=== PATIENT | male | born 1940 | race Caucasian/White ===

== ENCOUNTER → 2017-09-25 02:27 | Outpatient (CLI) | payer MEDICARE, MEDICAID, SELFPAY ==
--- NOTE | 2017-09-25 13:10 | DI.REPORT_ITS ---
SYMPTOM/DIAGNOSIS: PAINFUL LUMP, TENDER SOFT TISSUE EXTREMITY ULTRASOUND: The right mid to distal forearm was evaluated. Distal to the mid forearm medially and posteriorly was examined. There is no mass or cyst identified. The veins were noted in this region and compress freely and exhibit color flow. IMPRESSION: No abnormality is evident.
== END ==
PROVIDERS: PCP Family Medicine; Visit Provider Family Medicine
DX: R22.41 Localized swelling, mass and lump, right lower limb (principal)
CPT/HCPCS: 76881

== ENCOUNTER 2017-10-08 01:28 | Outpatient (RCR) | payer MEDICARE, MEDICAID, SELFPAY ==
[2017-10-08] MEDS: Normal Saline Flush 10 ML SYR IVP (07:00)
[2017-10-08] MEDS: Heparin 500 UNITS/5 ML SYRINGE IV (07:00)
[2017-10-08 07:24] LABS: Abs Immature Grans 0.02 k/cumm (0.0-0.09); Absolute Basophil Count 0.01 k/cumm (0.0-0.2); Absolute Eosinophil Count 0.12 k/cumm (0.0-0.7); Absolute Lymphocyte Count 0.36 k/cumm (1.2-3.4); Absolute Monocyte Count 0.26 k/cumm (0.11-0.7); Absolute Neutrophil Count 1.45 k/cumm (1.2-6.7); Basophils % 0.5; Eosinophils % 5.4; HCT 28.8 % (40.0-50.0); HGB 8.9 g/dL (13.5-17.5); Immature Grans % 0.9; Lymphocytes % 16.2; Mean Corp. HGB Concentration 30.9 g/dL (32.0-36.0); Mean Corpuscular Hemoglobin 25.4 pg (27.0-33.0); Mean Corpuscular Volume 82.1 fL (80-95); Mean Platelet Volume 12.5 fL (8.0-11.0); Monocytes % 11.7; Neutrophils % 65.3; RBC 3.51 m/cumm (4.50-6.00); RBC Distribution Width 16.7 % (11.8-14.1); White Blood Cell Count 2.22 k/cumm (4.4-10.8)
[2017-10-08 07:49] LABS: Anisocytosis 1+; Diff Comment RBC Morph Reviewed; Hypochromasia 2+; Microcytosis 1+; Ovalocytes 2+; Platelet Count 62 x1000/uL (130-400)
[2017-10-08 07:50] LABS: Poikilocytes 2+
== END 2017-10-17 ==
LOC: INF 01:28
PROVIDERS: PCP Family Medicine; Visit Provider Internal Medicine
DX: D50.0 Iron deficiency anemia secondary to blood loss (chronic) (principal); Z45.2 Encounter for adjustment and management of vascular access device
CPT/HCPCS: 36591; 86900; 86901; 85025

== ENCOUNTER 2017-10-16 08:30 | Outpatient (CLI) | payer MEDICARE, MEDICAID, SELFPAY | END 2017-10-16 08:31 | PROVIDERS: PCP Family Medicine; Visit Provider Psychiatry & Neurology Neurology | DX: G20 Parkinson's disease (principal); G25.81 Restless legs syndrome; K11.7 Disturbances of salivary secretion; R51 Headache | CPT/HCPCS: 99213 ==

== ENCOUNTER 2017-11-11 01:38 | Outpatient (RCR) | payer MEDICARE, MEDICAID, SELFPAY ==
[2017-11-05 09:22] LABS: Abs Immature Grans 0.01 k/cumm (0.0-0.09); Absolute Basophil Count 0.01 k/cumm (0.0-0.2); Absolute Eosinophil Count 0.11 k/cumm (0.0-0.7); Absolute Lymphocyte Count 0.26 k/cumm (1.2-3.4); Absolute Monocyte Count 0.18 k/cumm (0.11-0.7); Absolute Neutrophil Count 1.17 k/cumm (1.2-6.7); Basophils % 0.6; Eosinophils % 6.3; HCT 27.2 % (40.0-50.0); HGB 8.4 g/dL (13.5-17.5); Immature Grans % 0.6; Lymphocytes % 14.9; Mean Corp. HGB Concentration 30.9 g/dL (32.0-36.0); Mean Corpuscular Hemoglobin 25.1 pg (27.0-33.0); Mean Corpuscular Volume 81.2 fL (80-95); Mean Platelet Volume 11.1 fL (8.0-11.0); Monocytes % 10.3; Neutrophils % 67.3; RBC 3.35 m/cumm (4.50-6.00); RBC Distribution Width 16.4 % (11.8-14.1)
[2017-11-05 09:45] LABS: Platelet Count 55 x1000/uL (130-400); White Blood Cell Count 1.74 k/cumm (4.4-10.8)
[2017-11-05 09:49] LABS: Anisocytosis 2+; Hypochromasia 2+
[2017-11-05 09:50] LABS: Microcytosis 2+; Ovalocytes 3+; Poikilocytes 1+
[2017-11-11] MEDS: Normal Saline Flush 10 ML SYR IVP (07:00)
[2017-11-11] MEDS: Heparin 500 UNITS/5 ML SYRINGE IV (07:00)
[2017-11-11 07:47] LABS: Absolute Basophil Count 0.02 k/cumm (0.0-0.2); Absolute Eosinophil Count 0.09 k/cumm (0.0-0.7); Absolute Lymphocyte Count 0.27 k/cumm (1.2-3.4); Absolute Monocyte Count 0.19 k/cumm (0.11-0.7); Absolute Neutrophil Count 0.97 k/cumm (1.2-6.7); Basophils % 1.3; Eosinophils % 5.8; HCT 26.7 % (40.0-50.0); HGB 8.2 g/dL (13.5-17.5); Lymphocytes % 17.5; Mean Corp. HGB Concentration 30.7 g/dL (32.0-36.0); Mean Corpuscular Hemoglobin 24.9 pg (27.0-33.0); Mean Corpuscular Volume 81.2 fL (80-95); Monocytes % 12.3; Neutrophils % 63.1; RBC 3.29 m/cumm (4.50-6.00); RBC Distribution Width 16.1 % (11.8-14.1)
[2017-11-11 08:03] LABS: ALT 8 U/L (12-78); AST 31 U/L (15-37); Albumin 2.6 g/dL (3.4-5.0); Alkaline Phosphatase 220 U/L (46-116); Anion Gap 7.7 mmol/L (3-11); BUN 10 mg/dL (7-18); Bilirubin, Total 0.7 mg/dL (0.2-1.0); CO2 25.3 mmol/L (21.0-32.0); CREATININE 0.87 mg/dL (0.70-1.30); Calcium 7.5 mg/dL (8.5-10.1); Chloride 108 mmol/L (98-107); Ferritin 22 ng/mL (8-388); Glucose 141 mg/dL (70-100); Sodium 141 mmol/L (136-145); Total Protein 6.2 g/dL (6.4-8.2)
[2017-11-11 08:32] LABS: Platelet Count 54 x1000/uL (130-400); White Blood Cell Count 1.54 k/cumm (4.4-10.8)
[2017-11-11 08:33] LABS: Anisocytosis 1+; Diff Comment Diff Reviewed; Hypochromasia 2+; Microcytosis 2+; Ovalocytes 2+; Poikilocytes 1+
[2017-11-12 09:56] LABS: IgA 509 mg/dL (85-499); IgG 1557 mg/dL (610-1616); IgM 47 mg/dL (35-242); Kappa Free Light Chain 5.44 mg/dl (0.33-1.94)
== END 2017-11-16 23:59 | disposition home or self-care (01) ==
LOC: INF 01:38
PROVIDERS: PCP Family Medicine; Visit Provider Internal Medicine
DX: D50.0 Iron deficiency anemia secondary to blood loss (chronic) (principal); D47.2 Monoclonal gammopathy; C61 Malignant neoplasm of prostate; Z45.2 Encounter for adjustment and management of vascular access device
CPT/HCPCS: 36415; 36591; 80053; 82784; 86900; 86901; 82728; 83883; 84153; 85025

== ENCOUNTER 2017-11-29 01:50 | Emergency (ER) | payer MEDICARE, MEDICAID, SELFPAY ==
[2017-11-29] VITALS (25 sets, daily range): BP systolic 110–132; BP diastolic 55–67; PULSE 64–74; RESP 15–35; TEMP 36.6–36.9; O2SAT 94–100
[2017-11-29 02:14] LABS: Bilirubin Negative (Negative); Blood Moderate (Negative); Clarity Sl Cloudy; Glucose Negative (Negative); Ketones Negative (Negative); Leukocyte Esterase Negative (Negative); Nitrite Negative (Negative)
[2017-11-29 02:20] LABS: Bacteria Rare HPF (Negative); C & S Indicated? Yes; Casts Negative LPF (Negative); Crystals Negative HPF (Negative); Epithelial Cells Rare HPF (Negative); Mucus Negative (Negative); RBC >50 (0-2)
--- NOTE | 2017-11-29 02:25 | DI.CT_ITS ---
SYMPTOM/DIAGNOSIS: FELL, HIT RT CHEST, PAIN CHEST, ABDOMEN AND PELVIC CT: CT examination of the chest, abdomen and pelvis was performed without contrast administration. The lungs are grossly clear with some motion artifact. Tracheobronchial tree appears intact. No gross mediastinal hematoma is seen. No pleural effusion or pneumothorax. Acute right posterior eleventh rib fracture noted. No additional fracture identified in the chest, abdomen or pelvis. Note is made of findings consistent with hepatic cirrhosis with a nodular shrunken liver and marked splenomegaly with mild abdominal ascites. No gross acute organ injury is seen. Bilateral non obstructing renal calculi noted. Probable right renal cyst noted. Adrenals unremarkable. No gross abdominal or pelvic adenopathy. No free air is seen. No gross evidence of bowel obstruction or injury. No abdominal wall injury is seen. Small ventral hernia noted on the left. CONCLUSION: Right eleventh rib fracture posteriorly. No additional evidence of acute injury.
--- NOTE | 2017-11-29 02:49 | ED.GENADUL_ITS ---
Discharge Plan Disposition Patient Disposition: HOME Condition: Good Discharge Details Chief Complaint: Chest/Rib Clinical Impression: Closed rib fracture Reason For Visit: [facility] Primary Care Provider: Haley Hanna ED Provider: Roni Matthews Home Meds and New Rx's Prescriptions: New acetaminophen [Mapap Extra Strength] 500 MG tablet 1,000 mg PO Q6H 5 Days Qty: 60 RF: 0 lidocaine [Lidoderm] 1 PATCH patch 1 ea Topical Q24H Qty: 4 RF: 0 No Action carbidopa-levodopa 1 EACH tablet,disintegrating 2 tab-cap PO QID RF: 0 hydrocortisone 30 GM cream with perineal applicator 30 gm RC BID RF: 0 melatonin 5 MG tablet 5 mg PO HS RF: 0 PRATIK LOTION Topical QID RF: 0 solifenacin [Vesicare] 10 MG tablet 10 mg PO DAILY RF: 0 pantoprazole 40 MG tablet,delayed release (DR/EC) 40 mg PO BID RF: 0 carvedilol 3.125 MG tablet 3.125 mg PO BID RF: 0 insulin detemir U-100 [Levemir FlexTouch U-100 Insuln] 300 UNITS/3 ML insulin pen 45 units Sub-Q HS RF: 0 insulin aspart U-100 [Novolog Flexpen U-100 Insulin] 300 UNITS/3 ML insulin pen Sub-Q 0800,1200,1700 RF: 0 tramadol 50 MG tablet 50 mg PO Q8H PRN Qty: 90 RF: 0 Discharge Instructions Instructions: Rib Fracture (ED) Additional Instructions: Please use the Lidoderm patch and Tylenol as directed. Please use the incentive spirometer as we have shown you. Please follow-up with your primary care provider as soon as possible for continued management of your low blood levels. If you notice any worsening of your symptoms, or any new symptoms such as vomiting, diarrhea, fever, chills, shortness of breath, chest pain, numbness , weakness, or fainting , please return immediately to the emergency department for reevaluation. Please follow up with your primary care provider as soon as possible for reassessment and reevaluation. As always, it was a pleasure participating in your medical care today. Referrals: Haley Hanna [Primary Care Provider] - Medical Decision Making This is a 77-year-old male with a past medical history of Parkinson's disease who presents today for evaluation of right-sided flank and chest pain after mild trauma. He was in his bathroom yesterday when he slipped and hit the right side of his chest and abdomen up against the rail in the tub. He did not fall, he did not hit his head, he had no loss of consciousness. The focality of the event was solely on his right chest and abdomen. Physical exam demonstrates moderate tenderness on the right side. No other significant abnormalities noted on exam. Vital signs are stable. No signs of hypotension or significant tachycardia. He is not on any blood thinners. We will get a CT scan of the chest abdomen and pelvis to rule out any acute fracture, or acute intra-abdominal pathology. Due to his age, we will get a CT noncontrast for protection of his renal function. We will treat his pain with Tylenol, Motrin, and a Lidoderm patch. CT chest abdomen and pelvis IMPRESSION: 1. Small ascites. 2. Acute fracture right posterior 11th rib. 4:[address] scan shows evidence of an acute right posterior 11th rib fracture. Small ascites, no evidence of acute intra-abdominal bleed. Urinalysis does show evidence of mild hematuria, however on review of previous urinalysis this does appear to be the patient's chronic baseline. the patient's laboratory workup does show evidence of his chronic pancytopenia. Hemoglobin is 7.5, which is near his baseline of chronic anemia. White count is 1.15 which is also near his baseline. Review of history from the patient continues to have any denial of hematochezia, melena, or hematemesis. His chronic pancytopenia/ anemia is being followed on an outpatient basis. Patient's electrolytes are within normal limits. Renal function is at baseline. No evidence of urinary tract infection. At this point the patient's pain is well controlled and he is resting comfortably. With the evidence of the 11th rib fracture, no signs of pneumothorax or other acute intra-abdominal process I feel he can be safely discharged home with continued Lidoderm patches, Tylenol, and incentive spirometry. We discussed the importance of close follow-up, as well as red flags which to return the patient understands. I have extensively reviewed the treatment plan and discharge instructions with the patient. I have addressed all patient concerns at this time. The patient was made aware of what symptoms to monitor for that would warrant a return to the emergency department. Discussed the plan with the patient, they demonstrate verbal understanding and agreement with our assessment and plan at this time. HPI General Date/Time Provider Initiated Documentation: 11/29/17 01:59 . HPI Narrative: This is a 77-year-old male with a past medical history of hematuria, prostate cancer in 2002, cirrhosis, Pancytopenia, monoclonal gammopathy of unknown significance, Parkinson's, and diabetes, who presents today for evaluation of fall. Patient states that he was in his bathroom, trying to urinate, when he slipped / quickly leaned up against the bar on the shower, hitting his right ribs and right side. He did not hit his head, he had no loss of consciousness. He denies any other traumatic component. This occurred yesterday morning. Since then he had notable pain in his right flank, and right ribs whenever he pees, moves, or touches that area. His symptoms are improved by nothing. He did take some Tylenol earlier, but this did not help his pain at all. He denies any pleuritic chest pain, shortness of breath, numbness, tingling, azul hematuria, hematochezia, melena or acholic stool. He is not on any blood thinners. He denies any other complaints at this time. Aside for multiple skin removals for superficial skin cancer he denies any recent surgeries. He denies any pertinent family history. He denies any IV or illicit drug use. Related Data Home Medications Medication Instructions Recorded Confirmed pantoprazole 40 mg PO BID 11/27/12 11/29/17 carvedilol 3.125 mg PO BID 05/30/13 11/29/17 insulin detemir U-100 [Levemir 45 units SUB-Q HS syr 06/11/15 11/29/17 FlexTouch U-100 Insuln] insulin aspart U-100 [Novolog 0 units SUB-Q 0800,1200,1700 syr 07/31/15 Flexpen U-100 Insulin] tramadol 50 mg PO Q8H PRN #90 tab-cap 06/01/16 11/29/17 carbidopa-levodopa 2 tab-cap PO QID tab-cap 10/24/16 11/29/17 hydrocortisone 30 gm RC BID script 08/27/17 11/29/17 melatonin 5 mg PO HS 08/27/17 11/29/17 solifenacin [Vesicare] 10 mg PO DAILY tab-cap 10/16/17 11/29/17 acetaminophen [Mapap Extra 1,000 mg PO Q6H 5 Days #60 tab 11/29/17 Strength] lidocaine [Lidoderm] 1 ea TOPICAL Q24H #4 patch 11/29/17 Previous Rx's Medication Instructions Recorded insulin detemir U-100 [Levemir 45 units SUB-Q HS syr 06/11/15 FlexTouch U-100 Insuln] insulin aspart U-100 [Novolog 0 units SUB-Q 0800,1200,1700 syr 07/31/15 Flexpen U-100 Insulin] tramadol 50 mg PO Q8H PRN #90 tab-cap 06/01/16 acetaminophen [Mapap Extra 1,000 mg PO Q6H 5 Days #60 tab 11/29/17 Strength] lidocaine [Lidoderm] 1 ea TOPICAL Q24H #4 patch 11/29/17 Allergies Allergy/AdvReac Type Severity Reaction Status Date / Time leuprolide acetate Allergy Severe Swelling/Ed Verified 11/29/17 02:27 [From Lupron] isabelle adhesive Allergy Intermediate Skin Rash Verified 11/29/17 02:27 enalapril [Enalapril] AdvReac Severe Hyperkalemi Verified 11/29/17 02:27 a aspirin AdvReac Intermediate Verified 11/29/17 02:27 esomeprazole magnesium AdvReac Intermediate Diarrhea Verified 11/29/17 02:27 [From Nexium] metformin AdvReac Intermediate Diarrhea Verified 11/29/17 02:27 acetaminophen AdvReac Mild Diarrhea Verified 11/29/17 02:27 General Stated Complaint: Chest/Rib SHEKHAR: 4 Review of Systems Review of Systems All systems reviewed & are unremarkable except as noted in HPI and below PFSH Family History Maternal Cousin Colon cancer Maternal Cousin Colon cancer Medical History DM (diabetes mellitus) GERD (gastroesophageal reflux disease) HTN (hypertension) IBS (irritable bowel syndrome) Iron deficiency anemia Liver cirrhosis HANS (obstructive sleep apnea) Parkinson disease Social History Smoking/Tobacco Use Status: Former Tobacco Use Surgical History BONE MARROW BIOPSY (11/25/14) Colectomy colonoscopy (11/21/15) Exam Narrative Exam Narrative: 1.Const: Well-nourished, Well-developed, appearing stated age 2.Eyes: PERRL, no conjunctival injection, and symmetrical lids. 3.ENT: Atraumatic external nose and ears. Moist MM. Neck: Symmetric, trachea midline, No thyromegaly. There is no evidence of raccoon eyes, morales sign, CSF rhinorrhea, mastoid tenderness, cranial crepitus, hemotympanum, exophthalmos , or hyphema. Patient demonstrates intact dentition with no signs of tooth avulsion or fracture, no signs of jaw deformity, no evidence of a LeFort's fracture, with an intact palate, nose and orbital region. There is no evidence of a nasal septal hematoma. No proptosis. Jaw closes symmetrically. Airway is clear. 4.CVS Regular rate and rhythm, Normal s1 and s2. No murmurs, carotid bruits, rubs, or gallops. Radial pulses 2+ bilaterally and symmetric. Dorsalis pedis pulses 2+ bilaterally and symmetric. 2+ capillary refill. No evidence of distant heart sounds. No extremity edema. No evidence of gross hemorrhage. Chest port is in place. 5.RESP: Airway clear, no obstructions. No abrasions or ecchymosis. Chest movement symmetric with respirations. No chest wall tenderness. Trachea midline. No crepitus. No step offs. No paradoxical movements. Lungs are clear to auscultation bilaterally. No rales, rhonchi, wheezing or stridor. Breath sound symmetric. No Sucking chest wounds. No clinical evidence of significant chest trauma. Notable reproducible tenderness on right lower ribs on palpation. 6.GI: Soft, nondistended. Bowel tones normoactive. No masses or organomegaly. No ecchymosis or abrasions. No periumbilical ecchymosis or seatbelt sign. No left flank or CVA tenderness, however there is evidence of moderate right flank and right-sided abdominal tenderness on exam. No clinical signs of significant trauma. 7.MSK: No gross deformities or discolorations or lesions. Tolerates full range of motion of extremities without tenderness. All compartments of upper and lower extremities are soft with no tenderness. Vascular exam demonstrates brisk capillary refill and intact pulses in all extremities. Pelvic exam demonstrates a stable pelvis, nontender to lateral compression and palpation of symphysis pubis.. No clinical evidence of significant musculoskeletal trauma. 8.Skin: Warm, Dry. No rashes or lesions. 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 Sensation grossly intact, no focal neurologic deficits. 10.Psych: (AAO) x3. Appropriate mood and affect Course Vital Signs Temperature 36.9 C 11/29/17 02:04 Pulse 70 11/29/17 02:04 Respiratory Rate 18 11/29/17 02:04 Blood Pressure 123/55 L 11/29/17 02:04 Pulse Oximetry 99 11/29/17 02:04 Temperature 36.9 C 11/29/17 02:04 Temperature Source Tympanic 11/29/17 02:04 Pulse 70 11/29/17 02:04 Respiratory Rate 18 11/29/17 02:04 Respiratory Effort Non-Labored 11/29/17 02:04 Respiratory Depth Normal 11/29/17 02:04 Respiratory Pattern Normal 11/29/17 02:04 Blood Pressure 123/55 L 11/29/17 02:04 Pulse Oximetry 99 11/29/17 02:04 Oxygen Delivery Method Room Air 11/29/17 02:04 Oxygen Flow Rate 0 11/29/17 02:04 Lab/Test Results Lab/Test Results: 11/29/17 02:00 Urine - Reflex from Ua Urine Culture - Pending Laboratory Tests Range/Units 11/29/17 02:00 Urine Color (Yellow) Yellow Urine Clarity Sl cloudy Urine pH (5-8) 7.0 Ur Specific [place] (1.005-1.025) 1.020 Urine Protein (Negative) mg/dL Negative Urine Ketones (Negative) mg/dL Negative Urine Blood (Negative) Moderate H Urine Nitrite (Negative) Negative Urine Bilirubin (Negative) Negative Urine Urobilinogen (Up TO 0.2) EU/dL 1.0 H Ur Leukocyte Esterase (Negative) Negative Urine RBC (0-2) >50 H Urine WBC (0-5) HPF 5-10 Ur Epithelial Cells (Negative) HPF Rare Urine Crystals (Negative) HPF Negative Urine Bacteria (Negative) HPF Rare Urine Casts (Negative) LPF Negative Urine Mucus (Negative) Negative Ur Culture Indicated? Yes Urine Glucose (Negative) mg/dL Negative
[2017-11-29] MEDS: Acetaminophen 500 MG TAB 1000 MG PO (03:00)
[2017-11-29] MEDS: Lidocaine 5% Patch 1 PATCH TP (03:00)
[2017-11-29] MEDS: Ibuprofen 800 MG TAB PO (03:00)
[2017-11-29 03:07] LABS: Absolute Basophil Count 0.01 k/cumm (0.0-0.2); Absolute Eosinophil Count 0.09 k/cumm (0.0-0.7); Absolute Lymphocyte Count 0.22 k/cumm (1.2-3.4); Absolute Monocyte Count 0.19 k/cumm (0.11-0.7); Absolute Neutrophil Count 0.64 k/cumm (1.2-6.7); Basophils % 0.9; Eosinophils % 7.8; HCT 23.8 % (40.0-50.0); HGB 7.5 g/dL (13.5-17.5); Lymphocytes % 19.1; Mean Corp. HGB Concentration 31.5 g/dL (32.0-36.0); Mean Corpuscular Hemoglobin 25.5 pg (27.0-33.0); Mean Platelet Volume 10.6 fL (8.0-11.0); Monocytes % 16.5; Neutrophils % 55.7; RBC 2.94 m/cumm (4.50-6.00); RBC Distribution Width 15.8 % (11.8-14.1)
[2017-11-29 03:10] LABS: White Blood Cell Count 1.15 k/cumm (4.4-10.8)
--- NOTE | 2017-11-29 03:13 | DI.VRAD_ITS ---
EXAM: CT Chest Without Intravenous Contrast CT Abdomen and Pelvis Without Intravenous Contrast CLINICAL HISTORY: 77 years old, male; Injury or trauma; Fall; Initial encounter; Blunt; Ruq; Blunt trauma (contusions or hematomas); Injury date: 11/29/17; Injury details: Pt fell into a handicap grab bar and pain on right side of chest and ruq; Prior surgery; Surgery date: 6+ months; Surgery type: Gallbladder and hernia repair TECHNIQUE: Axial computed tomography images of the chest, abdomen and pelvis without intravenous contrast. All CT scans at this facility use at least one of these dose optimization techniques: automated exposure control; mA and/or kV adjustment per patient size (includes targeted exams where dose is matched to clinical indication); or iterative reconstruction. Coronal and sagittal reformatted images were created and reviewed. COMPARISON: CT PELVIC/LOWER ABD WITH CON(P) 05/30/2013 11:49 AM FINDINGS: CHEST: Lungs: No acute pulmonary infiltrate. Pleural space: Unremarkable. No significant effusion. No pneumothorax. Heart: Unremarkable. No cardiomegaly. No significant pericardial effusion. Mediastinum: Moderate hiatal hernia. ABDOMEN: Liver: Hepatic cirrhosis. Gallbladder and bile ducts: Status post cholecystectomy. No ductal dilation. Pancreas: Unremarkable. No ductal dilation. Spleen: Splenomegaly. Adrenals: Unremarkable. No mass. Kidneys and ureters: 5 cm right renal cyst. Nonobstructing renal calculi. No obstructing urinary calculus or hydronephrosis. Stomach and bowel: Status post right hemicolectomy. No obstruction. PELVIS: Appendix: See above. Bladder: Unremarkable. No stones. Reproductive: Unremarkable as visualized. CHEST, ABDOMEN and PELVIS: Intraperitoneal space: Small ascites. No free air. Bones/joints: Acute fracture right posterior 11th rib. Chronic rib fracture deformities. No dislocation. Soft tissues: Unremarkable. Vasculature: Unremarkable. No aortic aneurysm. Lymph nodes: Unremarkable. No enlarged lymph nodes. IMPRESSION: 1. Small ascites. 2. Acute fracture right posterior 11th rib. Dictated and Authenticated by: Brandon Herrmann MD. Ordering:VENECIA LUBIN MD
[2017-11-29 03:21] LABS: INR 1.4 (1.0-3.5); PTT Activated 30.5 sec (21.0-31.4); Prothrombin Time 13.9 sec (9.3-10.8)
[2017-11-29 03:23] LABS: ALT 10 U/L (12-78); AST 32 U/L (15-37); Albumin 2.5 g/dL (3.4-5.0); Alkaline Phosphatase 157 U/L (46-116); Anion Gap 7.5 mmol/L (3-11); BUN 8 mg/dL (7-18); Bilirubin, Total 0.8 mg/dL (0.2-1.0); CO2 25.5 mmol/L (21.0-32.0); CREATININE 0.85 mg/dL (0.70-1.30); Calcium 7.7 mg/dL (8.5-10.1); Chloride 106 mmol/L (98-107); Glucose 118 mg/dL (70-100); Potassium 3.8 mmol/L (3.5-5.1); Sodium 139 mmol/L (136-145); Total Protein 5.9 g/dL (6.4-8.2)
[2017-11-29 04:00] LABS: Anisocytosis 1+; Diff Comment Agrees w/ Instrument; Hypochromasia 2+; Microcytosis 1+; Ovalocytes 2+; Poikilocytes 1+
[2017-11-29 04:01] LABS: Platelet Count 55 x1000/uL (130-400)
== END 2017-11-29 05:03 | disposition home or self-care (01) ==
PROVIDERS: Emergency Provider Student in an Organized Health Care Education/Training Program; PCP Family Medicine
DX: S22.31XA Fracture of one rib, right side, initial encounter for closed fracture (principal); W18.49XA Other slipping, tripping and stumbling without falling, initial encounter; W22.8XXA Striking against or struck by other objects, initial encounter; D61.818 Other pancytopenia; G20 Parkinson's disease; E11.9 Type 2 diabetes mellitus without complications; Z79.4 Long term (current) use of insulin; I10 Essential (primary) hypertension
CPT/HCPCS: 36415; 71250; 80053; 86850; 86900; 86901; 99284; 74176; 81003; 81015; 85025; 85610; 85730; 86870; 86902; 87086; 99285

== ENCOUNTER 2017-12-08 08:11 | Outpatient (RCR) | payer MEDICARE, MEDICAID, SELFPAY ==
[2017-12-08] MEDS: Heparin 500 UNITS/5 ML SYRINGE IV (07:15)
[2017-12-08] MEDS: Normal Saline Flush 10 ML SYR IVP (07:15)
[2017-12-08 08:35] LABS: Absolute Basophil Count 0.01 k/cumm (0.0-0.2); Absolute Eosinophil Count 0.06 k/cumm (0.0-0.7); Absolute Lymphocyte Count 0.25 k/cumm (1.2-3.4); Absolute Monocyte Count 0.09 k/cumm (0.11-0.7); Absolute Neutrophil Count 0.94 k/cumm (1.2-6.7); Basophils % 0.7; Eosinophils % 4.4; HCT 26.2 % (40.0-50.0); HGB 8.1 g/dL (13.5-17.5); Lymphocytes % 18.5; Mean Corp. HGB Concentration 30.9 g/dL (32.0-36.0); Mean Corpuscular Hemoglobin 24.8 pg (27.0-33.0); Mean Corpuscular Volume 80.4 fL (80-95); Mean Platelet Volume 11.6 fL (8.0-11.0); Monocytes % 6.7; Neutrophils % 69.7; RBC 3.26 m/cumm (4.50-6.00)
[2017-12-08 08:46] LABS: White Blood Cell Count 1.35 k/cumm (4.4-10.8)
[2017-12-08 08:48] LABS: ALT 11 U/L (12-78); AST 31 U/L (15-37); Albumin 2.7 g/dL (3.4-5.0); Alkaline Phosphatase 164 U/L (46-116); BUN 14 mg/dL (7-18); Bilirubin, Total 0.9 mg/dL (0.2-1.0); CREATININE 0.76 mg/dL (0.70-1.30); Calcium 7.9 mg/dL (8.5-10.1); Chloride 107 mmol/L (98-107); Glucose 243 mg/dL (70-100); Sodium 140 mmol/L (136-145); Total Protein 6.6 g/dL (6.4-8.2)
[2017-12-08 09:16] LABS: Platelet Count 61 x1000/uL (130-400)
[2017-12-08 09:17] LABS: Diff Comment Diff Reviewed
[2017-12-08 09:19] LABS: Hypochromasia 2+; Ovalocytes 2+; Polychromasia Present
[2017-12-08 09:20] LABS: Poikilocytes 3+
== END 2017-12-17 23:59 | disposition home or self-care (01) ==
LOC: INF 08:11
PROVIDERS: PCP Family Medicine; Visit Provider Internal Medicine
DX: C61 Malignant neoplasm of prostate (principal); D50.0 Iron deficiency anemia secondary to blood loss (chronic); Z45.2 Encounter for adjustment and management of vascular access device
CPT/HCPCS: 36591; 80053; 86900; 86901; 85025

== ENCOUNTER → 2017-12-11 08:00 | Outpatient (BNVA) | payer MEDICARE, MEDICAID, SELFPAY | PROVIDERS: PCP Family Medicine; Visit Provider Psychiatry & Neurology Neurology | DX: G20 Parkinson's disease (principal); E11.40 Type 2 diabetes mellitus with diabetic neuropathy, unspecified; Z79.4 Long term (current) use of insulin; I10 Essential (primary) hypertension | CPT/HCPCS: 99213 ==

== ENCOUNTER 2018-01-16 00:51 | Outpatient (RCR) | payer MEDICARE, SELFPAY ==
[2018-01-14] MEDS: Normal Saline Flush 10 ML SYR IVP (10:10)
[2018-01-14] MEDS: Heparin 500 UNITS/5 ML SYRINGE IV (10:10)
[2018-01-14 10:29] LABS: Absolute Basophil Count 0.01 k/cumm (0.0-0.2); Absolute Eosinophil Count 0.08 k/cumm (0.0-0.7); Absolute Lymphocyte Count 0.22 k/cumm (1.2-3.4); HCT 24.1 % (40.0-50.0); HGB 7.3 g/dL (13.5-17.5); Mean Corp. HGB Concentration 30.3 g/dL (32.0-36.0); Mean Corpuscular Hemoglobin 23.9 pg (27.0-33.0); Mean Corpuscular Volume 78.8 fL (80-95); RBC 3.06 m/cumm (4.50-6.00); RBC Distribution Width 16.2 % (11.8-14.1)
[2018-01-14 11:16] LABS: White Blood Cell Count 1.16 k/cumm (4.4-10.8)
[2018-01-14 11:17] LABS: Absolute Monocyte Count 0.08 k/cumm (0.11-0.7); Absolute Neutrophil Count 0.77 k/cumm (1.2-6.7)
[2018-01-14 11:19] LABS: Platelet Count 49 x1000/uL (130-400)
[2018-01-14 11:20] LABS: Anisocytosis 2+; Diff Comment Manual Differential; Hypochromasia 2+
[2018-01-14 11:21] LABS: Microcytosis 2+; Ovalocytes 2+; Poikilocytes 1+
[2018-01-15 15:22] LABS: Ferritin 20 ng/mL (8-388)
[2018-01-16] VITALS (7 sets, daily range): BP systolic 137–161; BP diastolic 62–74; PULSE 77–88; RESP 18; TEMP 36.4–36.7; O2SAT 97–100
[2018-01-16] MEDS: Normal Saline Flush 10 ML SYR IVP (07:10)
[2018-01-16] MEDS: Heparin 500 UNITS/5 ML SYRINGE IV (08:21)
== END 2018-01-16 23:59 | disposition home or self-care (01) ==
LOC: INF 00:51
PROVIDERS: PCP Family Medicine; Visit Provider Internal Medicine
DX: D61.818 Other pancytopenia (principal); E61.1 Iron deficiency; Z45.2 Encounter for adjustment and management of vascular access device; C61 Malignant neoplasm of prostate
CPT/HCPCS: 36430; 36591; 86850; 86900; 86901; 86920; 82728; 85025; 86870; 86902; P9016

== ENCOUNTER 2018-01-27 12:19 | Outpatient (REF) | payer MEDICARE, OTHER, MEDICAID, SELFPAY ==
[2018-01-27 13:19] LABS: Bilirubin Negative (Negative); Blood Moderate (Negative); Clarity Clear; Glucose 250 mg/dL (Negative); Ketones Trace mg/dL (Negative); Leukocyte Esterase Negative (Negative); Nitrite Negative (Negative); Specific Gravity 1.025 (1.005-1.025); Urobilinogen 0.2 EU/dL (Up TO 0.2); pH 5.5 (5-8)
[2018-01-27 13:42] LABS: Epithelial Cells Few HPF (Negative)
[2018-01-27 13:43] LABS: Bacteria Few HPF (Negative); C & S Indicated? C&S Done As Ordered; Casts Negative LPF (Negative); Crystals Negative HPF (Negative); Mucus Trace (Negative)
== END 2018-01-27 12:39 ==
LOC: NCHCN 12:19
PROVIDERS: PCP Family Medicine; Visit Provider Nurse Practitioner Family
DX: R35.0 Frequency of micturition (principal)
CPT/HCPCS: 81003; 81015; 87086

== ENCOUNTER 2018-02-03 16:10 | Emergency (ER) | payer MEDICARE, SELFPAY ==
[2018-02-03 16:05] VITALS: BP 167/99; PULSE 89; RESP 28; TEMP 36.2; O2SAT 98
--- NOTE | 2018-02-03 16:15 | DI.CT_ITS ---
SYMPTOM/DIAGNOSIS: EPIGASTRIC PAIN, S/P ENDOSCOPY, ? PNEUMOPERITONEUM ABDOMEN AND PELVIC CT: The study was conducted according to the usual protocol without contrast enhancement. The liver is normal. The patient is status post cholecystectomy. No pancreatic abnormality is seen. There is no ductal dilatation. There is splenomegaly with the spleen measuring up to as much as 18 cm. in maximal diameter. This finding is unchanged when compared with the prior study. An enlarged left adrenal nodule measures 2.8 by 3.1 cm. and is measured at 24 [place] units. Non obstructing renal calculi are identified bilaterally. Also there is a 5.2 cm. cyst in the right kidney. Patient is status post michael colectomy. Sutures in the loops of bowel in the midline are identified. There is no obstruction. There is diverticulosis involving the rectosigmoid. Adjacent inflammatory changes may reflect diverticulitis or generalized inflammation. There is nothing to suggest an acute appendix. Stable surgical clips are identified in the posterior portion of the bladder. The reproductive organs as visualized are unremarkable. There is no evidence of a pneumoperitoneum. Fluid and a surgical clip are identified in the right inguinal region. There is mild ascites in the abdomen and pelvis which could be seen in nonspecific inflammatory change. The findings are not significantly changed when compared with the prior study. Note is made of non union of a fracture involving the right posterior portion of the eleventh rib which was present on the prior study. There is a stable compression of L 3. A ventral hernia contains inflamed tissue which was present on the prior study and appears stable. Thickened anterior abdominal wall is noted in the region of the umbilicus and may be due to prior surgery. There is no evidence of an aortic aneurysm. There is no evidence of lymphadenopathy. SUMMARY: There is no evidence of a pneumoperitoneum. There is a moderate hiatus hernia and bowel wall thickening involving the distal esophagus. Further evaluation is suggested if clinically indicated. Note is also made of splenomegaly up to 18 cm., unchanged. An enlarged left adrenal nodule is noted measuring 2.8 by 3.1 cm. and is of 24 [place] units. The left adrenal nodule appears to be stable when compared with the previous study of 09/19/16, however a follow up CT and if appropriate, MRI could be obtained in 3-6 months. Diverticulosis of the rectosigmoid and adjacent inflammatory changes could reflect diverticulitis or generalized inflammation.
--- NOTE | 2018-02-03 16:15 | W.ED.GENAD ---
Discharge Plan Disposition Patient Disposition: HOME Condition: Stable Discharge Details Chief Complaint: Abd Prob Clinical Impression: Abdominal pain Reason For Visit: FILIBERTO Primary Care Provider: Ismael Weber ED Provider: Brandon Agrawal Home Meds and New Rx's Prescriptions: Continued carbidopa-levodopa 1 EACH tablet,disintegrating 2 tab-cap PO QID RF: 0 hydrocortisone 30 GM cream with perineal applicator 30 gm RC BID RF: 0 melatonin 5 MG tablet 5 mg PO HS RF: 0 pantoprazole 40 MG tablet,delayed release (DR/EC) 40 mg PO BID RF: 0 carvedilol 3.125 MG tablet 3.125 mg PO BID RF: 0 Levemir FlexTouch U-100 Insuln 300 UNITS/3 ML insulin pen 45 units Sub-Q HS RF: 0 Novolog Flexpen U-100 Insulin 300 UNITS/3 ML insulin pen Sub-Q 0800,1200,1700 RF: 0 tramadol 50 MG tablet 50 mg PO Q8H PRN Qty: 90 RF: 0 lidocaine [Lidoderm] 1 PATCH patch 1 ea Topical Q24H Qty: 4 RF: 0 Discharge Instructions Additional Instructions: Your cat scan and lab work did not show any emergent findings. You could have had an esophageal spasm follow up with your primary care provider within 1-2 weeks if you have persistent vomit, high fevers or new symptoms such as difficulty breathing return to the emergency department Medical Decision Making 77 yo male comes in with abodminal pain that started a few hours ago. He states he had an endoscopy earlier at [facility] [place], unsure if any other procedures during this were done. No fevers, vomit. Has pain in epigastric region, no chest pain ,sob, n/v, fevers. Will eval for pancreatitis, acs and hepatitis and image to eval for possible pneumoperitoneum labs show no acute abnormalities, ct also shows no acute findings, does have some nonspecific bowel wall thickening of distal esophagus and diverticula but is pain free now and is sleeping on repeat exam without tenderness. Given pain as resolved could have had esophageal spasm. Will d/c home, advised f/u with pcp. Given pain is now gone and pt is sleeping doubt entities such as mesenteric ischemia Differential Diagnosis pneumoperitoneum, pancreatitis, hepatitis Imaging Data Radiologic Study: Attestation: I personally reviewed and interpreted this imaging study as follows: Imaging: CT Scan Radiologist's impression: 1. No pneumoperitoneum. 2. Moderate hiatal hernia. Bowel wall thickening in the distal esophagus. Recommend further evaluation if clinically indicated 3. Splenomegaly 18 cm. Splenomegaly was present on the prior study. 4. Enlarged left adrenal nodule 2.8 x 3.1 cm. 24 Hounsfield units. 5. Diverticulosis of the rectosigmoid. Adjacent inflammatory changes may reflect diverticulitis or generalized inflammation. Lab Data Lab results reviewed: Yes I reviewed the patient's lab results. ECG Data Attestation: I personally reviewed and interpreted this ECG (s) as follows: Prior ECG tracings: not available for review Interpretation: sinus rhythm, rate of 93, pr 164, qtc 433, no acute ischemic st t wave findings HPI General Mode of arrival: EMS. Date/Time Provider Initiated Documentation: 02/03/18 16:11. Limitations to Documentation: no limitations. Information obtained by: patient. History of Present Illness 77 year old M presents to the emergency department with the chief complaint of abdominal pain, described as moderate, with intensity rated at 6. Quality is described as stabbing, and is localized to the abdomen. Patient reports no radiation. Patient started experiencing this hour(s) (2) and it has been constant. No relieving factors improve symptom(s), No exacerbating factors reported . Patient did receive the following treatments prior to arrival, none Related Data Home Medications Medication Instructions Recorded Confirmed pantoprazole 40 mg PO BID 11/27/12 02/03/18 carvedilol 3.125 mg PO BID 05/30/13 02/03/18 Levemir FlexTouch U-100 Insuln 45 units SUB-Q HS syr 06/11/15 11/29/17 Novolog Flexpen U-100 Insulin 0 units SUB-Q 0800,1200,1700 syr 07/31/15 11/29/17 tramadol 50 mg PO Q8H PRN #90 tab-cap 06/01/16 02/03/18 carbidopa-levodopa 2 tab-cap PO QID tab-cap 10/24/16 02/03/18 hydrocortisone 30 gm RC BID script 08/27/17 11/29/17 melatonin 5 mg PO HS 08/27/17 02/03/18 lidocaine [Lidoderm] 1 ea TOPICAL Q24H #4 patch 11/29/17 Previous Rx's Medication Instructions Recorded Levemir FlexTouch U-100 Insuln 45 units SUB-Q HS syr 06/11/15 Novolog Flexpen U-100 Insulin 0 units SUB-Q 0800,1200,1700 syr 07/31/15 tramadol 50 mg PO Q8H PRN #90 tab-cap 06/01/16 lidocaine [Lidoderm] 1 ea TOPICAL Q24H #4 patch 11/29/17 Allergies Allergy/AdvReac Type Severity Reaction Status Date / Time leuprolide acetate Allergy Severe Swelling/Ed Verified 02/03/18 16:10 [From Lupron] isabelle adhesive Allergy Intermediate Skin Rash Verified 02/03/18 16:10 enalapril [Enalapril] AdvReac Severe Hyperkalemi Verified 02/03/18 16:10 a aspirin AdvReac Intermediate Verified 02/03/18 16:10 esomeprazole magnesium AdvReac Intermediate Diarrhea Verified 02/03/18 16:10 [From Nexium] metformin AdvReac Intermediate Diarrhea Verified 02/03/18 16:10 acetaminophen AdvReac Mild Diarrhea Verified 02/03/18 16:10 General Stated Complaint: Abd Prob SHEKHAR: 3 Review of Systems Review of Systems All systems reviewed & are unremarkable except as noted in HPI and below Constitutional Denies chills, Denies fever(s) and Denies weakness Eyes Denies loss of vision ENT Denies change in voice Cardiovascular Denies chest pain and Denies dyspnea Respiratory Denies dyspnea Gastrointestinal Denies nausea and Denies vomiting Genitourinary Denies dysuria Musculoskeletal Denies joint swelling Integumentary/Breasts Denies rash Neurologic Denies loss of vision and Denies weakness Psychiatric Denies depression Endocrine Denies cold intolerance and Denies heat intolerance Allergic/Immunologic Denies urticaria [facility] Medical History DM (diabetes mellitus) GERD (gastroesophageal reflux disease) HTN (hypertension) IBS (irritable bowel syndrome) Iron deficiency anemia Liver cirrhosis HANS (obstructive sleep apnea) Parkinson disease Surgical History BONE MARROW BIOPSY (11/25/14) Colectomy colonoscopy (11/21/15) Family History Maternal Cousin Colon cancer Maternal Cousin Colon cancer Social History Smoking/Tobacco Use Status: Former Tobacco Use Exam Const General: no acute distress Orientation: alert HENMT Head: normal to inspection Ears: external ears normal General nose exam: external nose normal Mouth: moist mucous membranes Eyes General: appearance normal, both eyes and all related structures Neck Neck: normal visual inspection Resp Effort & Inspection: normal respiratory effort and able to speak in complete sentences Cardio Rate: regular rate Skin General skin exam: no rashes or lesions noted Neuro General: alert and oriented x3 Extrem General: normal to inspection Psych Mental Status: mental status grossly normal Course Vital Signs Temperature 36.2 C L 02/03/18 16:05 Pulse 89 02/03/18 16:05 Respiratory Rate 28 H 02/03/18 16:05 Blood Pressure 167/99 H 02/03/18 16:05 Pulse Oximetry 98 02/03/18 16:05 Temperature 36.2 C L 02/03/18 16:05 Temperature Source Skin 02/03/18 16:05 Pulse 89 02/03/18 16:05 Respiratory Rate 28 H 02/03/18 16:05 Blood Pressure 167/99 H 02/03/18 16:05 Pulse Oximetry 98 02/03/18 16:05 Oxygen Delivery Method Room Air 02/03/18 16:05 Oxygen Flow Rate 0 02/03/18 16:05
--- NOTE | 2018-02-03 16:19 | ED.GENADUL_ITS ---
Discharge Plan Disposition Patient Disposition: HOME Condition: Stable Discharge Details Chief Complaint: Abd Prob Clinical Impression: Abdominal pain Reason For Visit: FILIBERTO Primary Care Provider: Ismael Weber ED Provider: Brandon Agrawal Home Meds and New Rx's Prescriptions: Continued carbidopa-levodopa 1 EACH tablet,disintegrating 2 tab-cap PO QID RF: 0 hydrocortisone 30 GM cream with perineal applicator 30 gm RC BID RF: 0 melatonin 5 MG tablet 5 mg PO HS RF: 0 pantoprazole 40 MG tablet,delayed release (DR/EC) 40 mg PO BID RF: 0 carvedilol 3.125 MG tablet 3.125 mg PO BID RF: 0 Levemir FlexTouch U-100 Insuln 300 UNITS/3 ML insulin pen 45 units Sub-Q HS RF: 0 Novolog Flexpen U-100 Insulin 300 UNITS/3 ML insulin pen Sub-Q 0800,1200,1700 RF: 0 tramadol 50 MG tablet 50 mg PO Q8H PRN Qty: 90 RF: 0 lidocaine [Lidoderm] 1 PATCH patch 1 ea Topical Q24H Qty: 4 RF: 0 Discharge Instructions Additional Instructions: Your cat scan and lab work did not show any emergent findings. You could have had an esophageal spasm follow up with your primary care provider within 1-2 weeks if you have persistent vomit, high fevers or new symptoms such as difficulty breathing return to the emergency department Medical Decision Making 77 yo male comes in with abodminal pain that started a few hours ago. He states [place] [facility] [place] unsure if any other procedures during this were done. No fevers, vomit. Has pain in epigastric region, no chest pain ,sob, n/v, fevers. Will eval for pancreatitis, acs and hepatitis and image to eval for possible pneumoperitoneum labs show no acute abnormalities, ct also shows no acute findings, does have some nonspecific bowel wall thickening of distal esophagus and diverticula but is pain free now and is sleeping on repeat exam without tenderness. Given pain as resolved could have had esophageal spasm. Will d/c home, advised f/u with pcp. Given pain is now gone and pt is sleeping doubt entities such as mesenteric ischemia Differential Diagnosis pneumoperitoneum, pancreatitis, hepatitis Imaging Data Radiologic Study: Attestation: I personally reviewed and interpreted this imaging study as follows: Imaging: CT Scan Radiologist's impression: 1. No pneumoperitoneum. 2. Moderate hiatal hernia. Bowel wall thickening in the distal esophagus. Recommend further evaluation if clinically indicated 3. Splenomegaly 18 cm. Splenomegaly was present on the prior study. 4. Enlarged left adrenal nodule 2.8 x 3.1 cm. 24 Hounsfield units. 5. Diverticulosis of the rectosigmoid. Adjacent inflammatory changes may reflect diverticulitis or generalized inflammation. Lab Data Lab results reviewed: Yes I reviewed the patient's lab results. ECG Data Attestation: I personally reviewed and interpreted this ECG (s) as follows: Prior ECG tracings: not available for review Interpretation: sinus rhythm, rate of 93, pr 164, qtc 433, no acute ischemic st t wave findings HPI General Mode of arrival: EMS . Date/Time Provider Initiated Documentation: 02/03/18 16:11 . Limitations to Documentation: no limitations . Information obtained by: patient . History of Present Illness 77 year old M presents to the emergency department with the chief complaint of abdominal pain, described as moderate, with intensity rated at 6. Quality is described as stabbing, and is localized to the abdomen. Patient reports no radiation. Patient started experiencing this hour(s) (2) and it has been constant. No relieving factors improve symptom(s), No exacerbating factors reported . Patient did receive the following treatments prior to arrival, none Related Data Home Medications Medication Instructions Recorded Confirmed pantoprazole 40 mg PO BID 11/27/12 02/03/18 carvedilol 3.125 mg PO BID 05/30/13 02/03/18 Levemir FlexTouch U-100 Insuln 45 units SUB-Q HS syr 06/11/15 11/29/17 Novolog Flexpen U-100 Insulin 0 units SUB-Q 0800,1200,1700 syr 07/31/15 11/29/17 tramadol 50 mg PO Q8H PRN #90 tab-cap 06/01/16 02/03/18 carbidopa-levodopa 2 tab-cap PO QID tab-cap 10/24/16 02/03/18 hydrocortisone 30 gm RC BID script 08/27/17 11/29/17 melatonin 5 mg PO HS 08/27/17 02/03/18 lidocaine [Lidoderm] 1 ea TOPICAL Q24H #4 patch 11/29/17 Previous Rx's Medication Instructions Recorded Levemir FlexTouch U-100 Insuln 45 units SUB-Q HS syr 06/11/15 Novolog Flexpen U-100 Insulin 0 units SUB-Q 0800,1200,1700 syr 07/31/15 tramadol 50 mg PO Q8H PRN #90 tab-cap 06/01/16 lidocaine [Lidoderm] 1 ea TOPICAL Q24H #4 patch 11/29/17 Allergies Allergy/AdvReac Type Severity Reaction Status Date / Time leuprolide acetate Allergy Severe Swelling/Ed Verified 02/03/18 16:10 [From Lupron] isabelle adhesive Allergy Intermediate Skin Rash Verified 02/03/18 16:10 enalapril [Enalapril] AdvReac Severe Hyperkalemi Verified 02/03/18 16:10 a aspirin AdvReac Intermediate Verified 02/03/18 16:10 esomeprazole magnesium AdvReac Intermediate Diarrhea Verified 02/03/18 16:10 [From Nexium] metformin AdvReac Intermediate Diarrhea Verified 02/03/18 16:10 acetaminophen AdvReac Mild Diarrhea Verified 02/03/18 16:10 General Stated Complaint: Abd Prob SHEKHAR: 3 Review of Systems Review of Systems All systems reviewed & are unremarkable except as noted in HPI and below Constitutional Denies chills, Denies fever(s) and Denies weakness Eyes Denies loss of vision ENT Denies change in voice Cardiovascular Denies chest pain and Denies dyspnea Respiratory Denies dyspnea Gastrointestinal Denies nausea and Denies vomiting Genitourinary Denies dysuria Musculoskeletal Denies joint swelling Integumentary/Breasts Denies rash Neurologic Denies loss of vision and Denies weakness Psychiatric Denies depression Endocrine Denies cold intolerance and Denies heat intolerance Allergic/Immunologic Denies urticaria [facility] Medical History DM (diabetes mellitus) GERD (gastroesophageal reflux disease) HTN (hypertension) IBS (irritable bowel syndrome) Iron deficiency anemia Liver cirrhosis HANS (obstructive sleep apnea) Parkinson disease Surgical History BONE MARROW BIOPSY (11/25/14) Colectomy colonoscopy (11/21/15) Family History Maternal Cousin Colon cancer Maternal Cousin Colon cancer Social History Smoking/Tobacco Use Status: Former Tobacco Use Exam Const General: no acute distress Orientation: alert HENMT Head: normal to inspection Ears: external ears normal General nose exam: external nose normal Mouth: moist mucous membranes Eyes General: appearance normal, both eyes and all related structures Neck Neck: normal visual inspection Resp Effort & Inspection: normal respiratory effort and able to speak in complete sentences Cardio Rate: regular rate Skin General skin exam: no rashes or lesions noted Neuro General: alert and oriented x3 Extrem General: normal to inspection Psych Mental Status: mental status grossly normal Course Vital Signs Temperature 36.2 C L 02/03/18 16:05 Pulse 89 02/03/18 16:05 Respiratory Rate 28 H 02/03/18 16:05 Blood Pressure 167/99 H 02/03/18 16:05 Pulse Oximetry 98 02/03/18 16:05 Temperature 36.2 C L 02/03/18 16:05 Temperature Source Skin 02/03/18 16:05 Pulse 89 02/03/18 16:05 Respiratory Rate 28 H 02/03/18 16:05 Blood Pressure 167/99 H 02/03/18 16:05 Pulse Oximetry 98 02/03/18 16:05 Oxygen Delivery Method Room Air 02/03/18 16:05 Oxygen Flow Rate 0 02/03/18 16:05
[2018-02-03 16:47] VITALS: BP 152/60; PULSE 91; RESP 20; TEMP 36.9; O2SAT 96
[2018-02-03 16:47] LABS: Absolute Basophil Count 0.01 k/cumm (0.0-0.2); Absolute Lymphocyte Count 0.23 k/cumm (1.2-3.4); Absolute Monocyte Count 0.18 k/cumm (0.11-0.7); Absolute Neutrophil Count 2.21 k/cumm (1.2-6.7); Basophils % 0.4; Eosinophils % 3.7; HGB 9.4 g/dL (13.5-17.5); Lymphocytes % 8.4; Mean Corp. HGB Concentration 31.3 g/dL (32.0-36.0); Mean Corpuscular Hemoglobin 25.1 pg (27.0-33.0); Mean Corpuscular Volume 80.2 fL (80-95); Monocytes % 6.6; Neutrophils % 80.9; RBC 3.74 m/cumm (4.50-6.00); RBC Distribution Width 18.9 % (11.8-14.1); White Blood Cell Count 2.73 k/cumm (4.4-10.8)
[2018-02-03 16:56] LABS: INR 1.5 (1.0-3.5); Prothrombin Time 14.6 sec (9.3-11.0)
[2018-02-03 17:07] LABS: Platelet Count 48 x1000/uL (130-400)
[2018-02-03 17:08] LABS: Anisocytosis 2+; Diff Comment PLT Morph Reviewed
[2018-02-03 17:09] LABS: ALT 8 U/L (12-78); AST 33 U/L (15-37); Albumin 2.8 g/dL (3.4-5.0); Alkaline Phosphatase 155 U/L (46-116); Anion Gap 10.3 mmol/L (3-11); BUN 12 mg/dL (7-18); Bilirubin, Direct 0.41 mg/dL (0.00-0.20); Bilirubin, Total 1.2 mg/dL (0.2-1.0); CO2 22.7 mmol/L (21.0-32.0); CREATININE 0.95 mg/dL (0.70-1.30); Calcium 8.4 mg/dL (8.5-10.1); Chloride 106 mmol/L (98-107); Glucose 184 mg/dL (70-100); Lipase 201 U/L (73-393); Potassium 3.8 mmol/L (3.5-5.1); Sodium 139 mmol/L (136-145); Total Protein 6.6 g/dL (6.4-8.2)
[2018-02-03 17:10] LABS: Troponin I < 0.02 ng/mL (0.00-0.06)
--- NOTE | 2018-02-03 17:31 | NUR.NOTE ---
Nursing Note: Returned from radiology, pt sleeping in bed. no acute distress
--- NOTE | 2018-02-03 17:51 | DI.VRAD_ITS ---
EXAM: CT Abdomen and Pelvis Without Contrast EXAM DATE/TIME: 02/03/2018 4:16 PM CLINICAL HISTORY: 77 years old, male; Pain; Abdominal pain; Epigastric; Patient HX: S/P endoscopy, ? pneumoperitoneum TECHNIQUE: Axial computed tomography images of the abdomen and pelvis without contrast. Coronal and sagittal reformatted images were created and reviewed. COMPARISON: CT chest/abd/pel wo 11/29/2017 2:12 AM FINDINGS: Lower thorax: Moderate hiatal hernia. Bowel wall thickening in the distal esophagus. ABDOMEN: Liver: Normal. No mass. Gallbladder and bile ducts: Cholecystectomy Pancreas: Normal. No ductal dilation. Spleen: Splenomegaly 18 cm. Splenomegaly was present on the prior study. Adrenals: Enlarged left adrenal nodule 2.8 x 3.1 cm. 24 Hounsfield units. Kidneys and ureters: Nonobstructing renal calculi bilaterally 5.2 cm cyst in the right kidney Stomach and bowel: Status post right hemicolectomy. Sutures within loops of bowel in the midline. No obstruction Diverticulosis of the rectosigmoid. Adjacent inflammatory changes may reflect diverticulitis or generalized inflammation. Appendix: No evidence of appendicitis. PELVIS: Bladder: Stable surgical clips in the posterior aspect of the bladder. Reproductive: Unremarkable as visualized. ABDOMEN and PELVIS: Intraperitoneal space: No pneumoperitoneum. Fluid and surgical clip in the right inguinal region Mild ascites in the abdomen and pelvis Nonspecific inflammatory changes in the pelvis were present on the prior study. Bones/joints: Unhealed fracture in the right posterior 11th rib was present on the prior study. Stable compression fracture L3 Soft tissues: Ventral hernia contains inflamed or which was present on the prior study Stable Thickened anterior abdominal wall in the region of the umbilicus may be due to prior surgery. Vasculature: Normal. No abdominal aortic aneurysm. Lymph nodes: Normal. No enlarged lymph nodes. IMPRESSION: 1. No pneumoperitoneum. 2. Moderate hiatal hernia. Bowel wall thickening in the distal esophagus. Recommend further evaluation if clinically indicated 3. Splenomegaly 18 cm. Splenomegaly was present on the prior study. 4. Enlarged left adrenal nodule 2.8 x 3.1 cm. 24 Hounsfield units. 5. Diverticulosis of the rectosigmoid. Adjacent inflammatory changes may reflect diverticulitis or generalized inflammation. Dictated and Authenticated by: Fidelia Hernández MD. Ordering:LISSETTE Taylor MD
[2018-02-03 18:29] VITALS: BP 124/48; PULSE 89; RESP 18; O2SAT 96
== END 2018-02-03 18:38 | disposition home or self-care (01) ==
PROVIDERS: Emergency Provider Emergency Medicine; PCP Family Medicine
DX: R10.13 Epigastric pain (principal); K44.9 Diaphragmatic hernia without obstruction or gangrene; K57.20 Diverticulitis of large intestine with perforation and abscess without bleeding; R16.1 Splenomegaly, not elsewhere classified; E27.9 Disorder of adrenal gland, unspecified
CPT/HCPCS: 36415; 80053; 80076; 83690; 93005; 99285; 74176; 84484; 85025; 85610; 85730; 93010

== ENCOUNTER 2018-02-16 01:21 | Outpatient (RCR) | payer MEDICARE, SELFPAY ==
[2018-01-26] MEDS: Normal Saline Flush 10 ML SYR IVP (07:54)
[2018-02-02] MEDS: Normal Saline Flush 10 ML SYR IVP (07:22)
[2018-02-02] MEDS: Heparin 500 UNITS/5 ML SYRINGE IV (07:52)
[2018-02-09] MEDS: IRON SUCROSE COMPLEX 200 MG in Normal Saline 100 ML 110 MG IVPB (07:15)
[2018-02-09] MEDS: Normal Saline Flush 10 ML SYR IVP (07:24)
[2018-02-09] MEDS: Heparin 500 UNITS/5 ML SYRINGE IV (07:24)
[2018-02-16] MEDS: Normal Saline Flush 10 ML SYR IVP (07:00)
[2018-02-16] MEDS: IRON SUCROSE COMPLEX 200 MG in Normal Saline 100 ML 110 MG IVPB (07:15)
[2018-02-16] MEDS: Heparin 500 UNITS/5 ML SYRINGE IV (07:20)
[2018-02-16 07:21] LABS: Abs Immature Grans 0.01 k/cumm (0.0-0.09); Absolute Basophil Count 0.01 k/cumm (0.0-0.2); Absolute Eosinophil Count 0.08 k/cumm (0.0-0.7); Absolute Lymphocyte Count 0.26 k/cumm (1.2-3.4); Absolute Monocyte Count 0.19 k/cumm (0.11-0.7); Absolute Neutrophil Count 1.85 k/cumm (1.2-6.7); Basophils % 0.4; Eosinophils % 3.3; HCT 31.4 % (40.0-50.0); HGB 10.1 g/dL (13.5-17.5); Immature Grans % 0.4; Lymphocytes % 10.8; Mean Corp. HGB Concentration 32.2 g/dL (32.0-36.0); Mean Platelet Volume 11.4 fL (8.0-11.0); Monocytes % 7.9; Neutrophils % 77.2; RBC 3.74 m/cumm (4.50-6.00); RBC Distribution Width 20.2 % (11.8-14.1)
[2018-02-16 07:43] LABS: ALT 7 U/L (12-78); AST 33 U/L (15-37); Albumin 2.8 g/dL (3.4-5.0); Alkaline Phosphatase 185 U/L (46-116); Anion Gap 6.1 mmol/L (3-11); BUN 11 mg/dL (7-18); Bilirubin, Total 0.9 mg/dL (0.2-1.0); CO2 26.9 mmol/L (21.0-32.0); CREATININE 0.83 mg/dL (0.70-1.30); Calcium 8.3 mg/dL (8.5-10.1); Chloride 105 mmol/L (98-107); Glucose 155 mg/dL (70-100); Potassium 4.4 mmol/L (3.5-5.1); Sodium 138 mmol/L (136-145); Total Protein 6.5 g/dL (6.4-8.2)
[2018-02-16 07:56] LABS: Platelet Count 66 x1000/uL (130-400)
[2018-02-16 07:57] LABS: Anisocytosis 2+; Diff Comment PLT Morph Reviewed; Hypochromasia 3+; Microcytosis 3+; Ovalocytes 3+; Poikilocytes 2+; Polychromasia Present
[2018-02-16 08:10] LABS: Ferritin 138 ng/mL (8-388)
== END 2018-02-16 23:59 | disposition home or self-care (01) ==
LOC: INF 01:21
PROVIDERS: PCP Family Medicine; Visit Provider Internal Medicine
DX: C61 Malignant neoplasm of prostate (principal); D50.0 Iron deficiency anemia secondary to blood loss (chronic); Z45.2 Encounter for adjustment and management of vascular access device
CPT/HCPCS: 36591; 80053; 86900; 86901; 96365; 96523; 82728; 85025; J1756

== ENCOUNTER 2018-02-21 15:44 | Inpatient (IN) | payer OTHER, SELFPAY ==
[2018-02-21] VITALS (21 sets, daily range): BP systolic 126–172; BP diastolic 65–88; PULSE 67–82; RESP 12–18; TEMP 36.6–36.9; O2SAT 95–100
--- NOTE | 2018-02-21 16:02 | W.ED.GENAD ---
Discharge Plan Disposition Patient Disposition: [facility] INPATIENT Condition: Stable Discharge Details Chief Complaint: Abd Prob Clinical Impression: Pancytopenia, Partial bowel obstruction, Hernia Reason For Visit: PARTIAL BOWEL OBSTRUCTION Admit Date/Time: 02/21/18 17:58 Admit Provider: Jasiel Banks Attending Provider: Jasiel Banks Primary Care Provider: Ismael Weber ED Provider: Katy Hallman Discharge Data Discharge Date/Time-TO BE ENTERED AT DEPARTURE: 02/21/18 18:45 Medical Decision Making Patient is a 77 year old male, brought in via EMS, with c/c of central abdominal pain that began at 0700 this AM. States that pain has progressively been worsening throughout the day. Normal appetite this AM and at lunch, last ate at 1300. Endorses nausea currently, states that he vomited en route to hospital with EMS. Patient has history of colon cancern with partial colectomy, Parkinsons, neoplasm of skin, mild cognitive impairment, daily SCHRADER, insulin dependent DM, prostate ca, Barretts esophagus, hematuria, splenomegaly, cirhosis of liver, pancytopenia, iron deficiency, hypokalemia, gait instability, HANS. Surgical history significant for colectomy, Leonid Fundolication, cholecystectomy. Denies recent illness, no fevers/chills. Had normal BM at 1200 today. No change in urinary habits. Pain does not radiate, denies back pain. No CP or SOB. On exam, he has a raised central area of the abdomen, no pulsatile mass, does not feel like defined area of hernia. This is the area of discomfort. Bowel sounds are diminshed. Concerned for possible obstruction, patient does have significant surgical history with large midline incision near area of discomfort. Also concerned for possible pancreatitis, gastroenteritis vs other abdominal pathology. ACS unlikely but will assess with EKG and troponin. EKG reviewed by Dr. Moon, NSR 74, no acute ischemic changes note. Please see Dr. Moon's note. Pancytopenia is noted on laboratory workup, this is within patient's normal range with no acute change. FINDINGS: Multiple loops of mildly dilated small bowel with nondilated more distal bowel loops and air within the colon consistent with a partial small bowel obstruction. The transition point appears to be related to a prior small bowel anastomosis in the midabdomen with surrounding inflammation. Fat-containing left paramedian anterior abdominal wall hernia with no bowel loops extending to the hernia defect. Nonobstructing bilateral nephrolithiasis. Prior cholecystectomy. Irregularity to the liver again dated with mild abdominal free fluid suggesting intrinsic liver disease. No obstructive uropathy. Moderate to large hiatal hernia unchanged from the prior exam. Mild left basilar lung scarring and/or atelectasis. Moderate splenomegaly. IMPRESSION: 1. Partial small bowel obstruction. 2. Intrinsic liver disease with secondary limitedly and free fluid. Discussed findings with the patient. At this point, as he is unable to hydrate orally and is requiring IV pain medications, feel that he requires inpatient admission. Will consult with general surgery. He agrees with this plan. Consulted with Dr. Banks regarding CT findings. She advised placing NG tub, keeping patient NPO, continueing with IV fluids. Advised against abx. She has asked that I place holding orders and that she will see the patient in the morning. Nursing staff attempted to place NG tube and had difficulty doing so. Dr. Banks had warned that this may be difficult secondary to the Leonid, contacted her to let her know of the difficulty with this. Patient transferred to med surg unit [facility] Mode of arrival: EMS. Date/Time Provider Initiated Documentation: 02/21/18 16:00. Limitations to Documentation: no limitations. Information obtained by: patient. History of Present Illness 77 year old M presents to the emergency department with the chief complaint of abdominal pain, described as severe, with intensity rated at 9. Quality is described as sharp, and is localized to the abdomen. Patient reports no radiation. Patient started experiencing this hour(s) (0700 this AM) and it has been constant (worsening throughout the day). No relieving factors improve symptom(s), No exacerbating factors reported . Patient notes nausea/vomiting (nausea en route with EMS); denies chest pain, cough, diaphoresis, fever/chills, loss of appetite, rash, shortness of breath and weakness. Patient did receive the following treatments prior to arrival, none Related Data Home Medications Medication Instructions Recorded Confirmed pantoprazole 40 mg PO BID 11/27/12 02/21/18 carvedilol 3.125 mg PO BID 05/30/13 02/21/18 Levemir FlexTouch U-100 Insuln 45 units SUB-Q HS syr 06/11/15 02/21/18 Novolog Flexpen U-100 Insulin 0 units SUB-Q 0800,1200,1700 syr 07/31/15 02/21/18 tramadol 50 mg PO Q8H PRN #90 tab-cap 06/01/16 02/21/18 carbidopa-levodopa 2 tab-cap PO QID tab-cap 10/24/16 02/21/18 melatonin 5 mg PO HS 08/27/17 02/21/18 Previous Rx's Medication Instructions Recorded Levemir FlexTouch U-100 Insuln 45 units SUB-Q HS syr 06/11/15 Novolog Flexpen U-100 Insulin 0 units SUB-Q 0800,1200,1700 syr 07/31/15 tramadol 50 mg PO Q8H PRN #90 tab-cap 06/01/16 Allergies Allergy/AdvReac Type Severity Reaction Status Date / Time leuprolide acetate Allergy Severe Swelling/Ed Verified 02/21/18 15:44 [From Lupron] isabelle adhesive Allergy Intermediate Skin Rash Verified 02/21/18 15:44 enalapril [Enalapril] AdvReac Severe Hyperkalemi Verified 02/21/18 15:44 a aspirin AdvReac Intermediate Verified 02/21/18 15:44 esomeprazole magnesium AdvReac Intermediate Diarrhea Verified 02/21/18 15:44 [From Nexium] metformin AdvReac Intermediate Diarrhea Verified 02/21/18 15:44 acetaminophen AdvReac Mild Diarrhea Verified 02/21/18 15:44 General Stated Complaint: Abd Prob SHEKHAR: 3 Review of Systems Constitutional Reports as per HPI, Denies chills, Denies fatigue, Denies fever(s) and Denies headache(s) ENT Denies headache(s) Cardiovascular Reports as per HPI, Denies chest pain and Denies dyspnea Respiratory Denies cough, Denies pain on inspiration, Denies pain with cough and Denies dyspnea Gastrointestinal Reports as per HPI, Reports abdominal pain, Denies bloating, Denies change in stool character (normal BM at noon today, normal flatus), Denies constipation, Denies excessive flatus, Reports nausea and Reports vomiting Genitourinary Denies system reviewed and no additional complaints, except as docu (patient denies any change in urinary habits) Musculoskeletal Reports as per HPI and Denies back pain Integumentary/Breasts Reports as per HPI and Denies rash Neurologic Denies headache(s) Endocrine Denies fatigue PFSH Medical History Ventral hernia (Acute) DM (diabetes mellitus) GERD (gastroesophageal reflux disease) HTN (hypertension) IBS (irritable bowel syndrome) Iron deficiency anemia Liver cirrhosis HANS (obstructive sleep apnea) Parkinson disease Surgical History H/O ventral hernia repair (Acute) History of bowel resection (Acute) History of Leonid fundoplication (Chronic) BONE MARROW BIOPSY (11/25/14) Colectomy colonoscopy (11/21/15) Family History Maternal Cousin Colon cancer Maternal Cousin Colon cancer Social History Smoking/Tobacco Use Status: Former Tobacco Use alcohol intake: current alcohol intake frequency: other additional social history: drinks < 1/month Exam Const General: cooperative, no acute distress, well developed and ill appearing acutely (patient appears pale, holding emesis bag) Nutritional Appearance: well nourished Orientation: alert and awake HENMT Head: normal to inspection Mouth: moist mucous membranes Resp Effort & Inspection: normal respiratory effort, able to speak in complete sentences and no respiratory distress Auscultation: clear to auscultation bilaterally, no rales, no rhonchi and no wheezes Cardio Rate: regular rate Rhythm: regular rhythm Heart Sounds: S1 normal and S2 normal GI Inspection: abnormal to inspection (patient has a palpable area of swelling superior to umbilicus), no abdominal wall ecchymosis, distended (abdomen feels distended, patient reports this is typical), obesity, scar (midline scar), no visible herniation, no visible pulsation, No visible peristalsis and No caput medusae present Palpation: soft, no aortic enlargement, no guarding, no hernias, no masses, not rigid and tender (over the enlarged defined area centrally) not in the epigastrum, not in the LLQ, not in the RLQ, not in the RUQ, not at McBurney's point, Hooker's sign negative and with no rebound tenderness Percussion: normal to percussion Auscultation: hypoactive bowel sounds Back/Spine/Pelvis Back: no CVA tenderness Skin General skin exam: no rashes or lesions noted Trauma: no lacerations or abrasions Neuro General: alert and awake Cognition: normal cognition Speech: speech normal Psych Appearance: grossly normal and well kempt Mental Status: mental status grossly normal Speech and Movement: speech and movement normal Course Vital Signs Temperature 36.6 C 02/21/18 15:40 Pulse 79 02/21/18 15:40 Respiratory Rate 16 02/21/18 15:40 Blood Pressure 172/88 H 02/21/18 15:40 Pulse Oximetry 99 02/21/18 15:40 Temperature 36.6 C 02/21/18 15:40 Temperature Source Temporal Artery Scan 02/21/18 15:40 Pulse 79 02/21/18 15:40 Respiratory Rate 16 02/21/18 15:40 Respiratory Effort Non-Labored 02/21/18 15:51 Blood Pressure 172/88 H 02/21/18 15:40 Blood Pressure Position Sitting 02/21/18 15:40 Pulse Oximetry 99 02/21/18 15:40 Oxygen Delivery Method Room Air 02/21/18 15:40 Oxygen Flow Rate 0 02/21/18 15:40 Pain Level 9 02/21/18 15:40
--- NOTE | 2018-02-21 16:11 | DI.CT_ITS ---
SYMPTOMS/DIAGNOSIS: CENTRAL ABDOMINAL PAIN, S/P PARTIAL COLECTOMY, CHOLECYSTECTOMY CT SCAN OF THE ABDOMEN AND PELVIS: CT scan of the abdomen and pelvis was performed following the uneventful administration of intravenous contrast material. Comparison examinations 02/03/18 and 09/19/16. Scarring or atelectatic changes are seen in the lung base particularly in the left. There is a large hiatal hernia. There is a nodular liver suggestive of hepatic cirrhosis. No discrete hepatic mass is seen. The portal and superior mesenteric veins are patent. The patient is status post cholecystectomy. No biliary ductal dilatation is seen. The pancreas is unchanged and grossly unremarkable. There is splenomegaly. The adrenal glands are unremarkable. The nodularity previously attributed to the left adrenal gland appears to be varices. The kidneys show normal and symmetric enhancement. There are bilateral renal cysts and nonobstructing stones in the lower poles. The urinary bladder is intact. The reproductive organs are unremarkable. There is atherosclerosis of the abdominal aorta but no aneurysmal dilatation is seen. No significant abdominal or pelvic adenopathy or pneumoperitoneum is present. There is a small amount of ascites in the perihepatic and perisplenic regions and in the pelvis. The patient is status post partial colectomy. There are dilated loops of small bowel seen proximally with normal caliber small bowel loops distally. The transition appears to lie within the mid small bowel. The visualized colon shows no inflammatory or infectious process. There do appear to be a few diverticula present but no evidence of acute diverticulitis. The bones show no acute abnormality. There is again seen thickening of the anterior abdominal wall in the midline. This is unchanged compared to the prior examinations. IMPRESSION: 1. Findings suggestive of a partial small bowel obstruction. 2. Findings consistent with hepatic cirrhosis with splenomegaly and abdominal ascites.
[2018-02-21 16:35] LABS: Absolute Basophil Count 0.01 k/cumm (0.0-0.2); Absolute Lymphocyte Count 0.31 k/cumm (1.2-3.4); Absolute Neutrophil Count 1.27 k/cumm (1.2-6.7); Basophils % 0.5; Eosinophils % 5.3; HCT 29.9 % (40.0-50.0); HGB 9.7 g/dL (13.5-17.5); Lymphocytes % 16.4; Mean Corp. HGB Concentration 32.4 g/dL (32.0-36.0); Mean Corpuscular Hemoglobin 27.1 pg (27.0-33.0); Mean Corpuscular Volume 83.5 fL (80-95); Mean Platelet Volume 11.6 fL (8.0-11.0); Monocytes % 10.6; Neutrophils % 67.2; Platelet Count 60 x1000/uL (130-400); RBC 3.58 m/cumm (4.50-6.00); RBC Distribution Width 20.1 % (11.8-14.1)
[2018-02-21 16:37] LABS: White Blood Cell Count 1.89 k/cumm (4.4-10.8)
[2018-02-21] MEDS: Ondansetron 4 MG/2 ML VIAL IVP (16:39)
[2018-02-21] MEDS: Normal Saline 1,000 ML 125 ML IV ×2 (16:39→21:06)
[2018-02-21] MEDS: MORPHine 10 MG/ML VIAL 2 MG IVP ×2 (16:39→18:04)
[2018-02-21 16:53] LABS: Anisocytosis 3+; Diff Comment PLT Morph Reviewed
[2018-02-21 16:56] LABS: ALT 9 U/L (12-78); AST 30 U/L (15-37); Albumin 2.6 g/dL (3.4-5.0); Alkaline Phosphatase 157 U/L (46-116); Anion Gap 8.1 mmol/L (3-11); BUN 11 mg/dL (7-18); CO2 25.9 mmol/L (21.0-32.0); CREATININE 0.82 mg/dL (0.70-1.30); Calcium 8.1 mg/dL (8.5-10.1); Chloride 107 mmol/L (98-107); Glucose 131 mg/dL (70-100); Lipase 222 U/L (73-393); Magnesium 1.7 mg/dL (1.8-2.4); Potassium 3.6 mmol/L (3.5-5.1); Sodium 141 mmol/L (136-145); Total Protein 6.1 g/dL (6.4-8.2)
[2018-02-21 17:08] LABS: Troponin I < 0.02 ng/mL (0.00-0.06)
[2018-02-21] MEDS: Omnipaque 350 MG/ML 100 ML BTL IJ (17:10)
--- NOTE | 2018-02-21 17:37 | DI.VRAD_ITS ---
EXAM: CT Abdomen and Pelvis With Contrast EXAM DATE/TIME: 02/21/2018 4:13 PM CLINICAL HISTORY: 77 years old, male; Pain; Abdominal pain; Localized; Other: Central abdominal; Patient HX: Central abdominal pain; Additional info: Cirrhosis TECHNIQUE: Axial computed tomography images of the abdomen and pelvis with intravenous contrast. Coronal and sagittal reformatted images were created and reviewed. COMPARISON: CT Private^ROUTINE ABDOMEN PELVIS WITHOUT (Adult) 02/03/2018 4:57 PM FINDINGS: Multiple loops of mildly dilated small bowel with nondilated more distal bowel loops and air within the colon consistent with a partial small bowel obstruction. The transition point appears to be related to a prior small bowel anastomosis in the midabdomen with surrounding inflammation. Fat-containing left paramedian anterior abdominal wall hernia with no bowel loops extending to the hernia defect. Nonobstructing bilateral nephrolithiasis. Prior cholecystectomy. Irregularity to the liver again dated with mild abdominal free fluid suggesting intrinsic liver disease. No obstructive uropathy. Moderate to large hiatal hernia unchanged from the prior exam. Mild left basilar lung scarring and/or atelectasis. Moderate splenomegaly. IMPRESSION: 1. Partial small bowel obstruction. 2. Intrinsic liver disease with secondary limitedly and free fluid. Dictated and Authenticated by: Kalen Casey MD. Ordering:MELISSA Burns MD
[2018-02-21 17:54] LABS: Bilirubin Negative (Negative); Blood Moderate (Negative); Clarity Clear; Glucose Negative (Negative); Ketones Trace mg/dL (Negative); Leukocyte Esterase Negative (Negative); Nitrite Negative (Negative)
[2018-02-21 18:01] LABS: Bacteria Negative HPF (Negative); C & S Indicated? Yes; Casts Negative LPF (Negative); Crystals Negative HPF (Negative); Epithelial Cells Rare HPF (Negative); Mucus Negative (Negative); Other Cells Negative (Negative); RBC 20-50 (0-2)
--- NOTE | 2018-02-21 18:47 | NUR.NOTE ---
Nursing Note: Bleeding from nares has stopped. WELLINGTON Hallman at the bedside. Report called to Jennifer on [facility].
--- NOTE | 2018-02-21 21:29 | HPE_ITS ---
Date of service: 02/21/18 Time of Service: 21:12 Assessment and Plan (1) Bowel obstruction: Current visit: Yes Status: Acute 77 y/o male admitted with abdominal pain, nausea, and vomiting. Findings on CT suggestive of PSBO. Symptoms improved at this time. NG attempted unsuccessfully in ED. Will bowel rest, NPO except ice chips and po meds with sips. Replace potassium and magnesium. Follow-up labs and AXR in am. Resume Parkinson's meds. Cover blood sugars with sliding scale coverage til regular di et resumed. Further recommendations pending clinical course. Discussed with patient who is agreeable with plans as outlined above. History of Present Illness Chief Complaint: Abdominal pain Narrative: 77 y/o male admitted through the ED with < 1 day h/o mid-abdominal pain which is intermittently sharp in nature and woke him up from sleep this am. He denies any abdominal pain or other symptoms last night. Pain has persisted but is better after pain meds. (+) Nausea and emesis in the ambulance on the way to the hospital this afternoon. No nausea at this time. He did eat breakfast and lunch earlier today without problems. He reports 3 normal bowel movements this morning which were formed and normal in color. He denies any melena or hematochezia. He is not passing flatus today. He denies fevers, chills, or urinary symptoms. He lives semi-independently in an apartment as part of a care home facility. He denies any recent sick contacts. He notes that he has a colonoscopy every year to follow-up a previous history of colon cancer for which he underwent a colon resection. He had a second colon resection performed for large polyps that were not able to be removed endoscopically. He has also had a ventral hernia repair. Prior to all this, he had a Leonid fundoplication for a hiatal hernia repair in 1981. He is followed by oncology for pancytopenia which is noted to be chronic. CT abd/pelvis with IV contrast noted a fat containing left paramedian hernia and possible partial small bowel obstruction at the site of a previous anastomosis. Labs noted. Review of Systems Review of Systems All systems reviewed & are unremarkable except as noted in HPI and below Constitutional Denies chills and Denies fever(s) Gastrointestinal Reports abdominal pain, Denies melena, Denies hematochezia, Denies constipation, Denies diarrhea, Reports nausea and Reports vomiting Genitourinary Denies hematuria and Denies dysuria PFSH Medical History Ventral hernia (Acute) DM (diabetes mellitus) GERD (gastroesophageal reflux disease) HTN (hypertension) IBS (irritable bowel syndrome) Iron deficiency anemia Liver cirrhosis HANS (obstructive sleep apnea) Parkinson disease Surgical History H/O ventral hernia repair (Acute) History of bowel resection (Acute) History of Leonid fundoplication (Chronic) BONE MARROW BIOPSY (11/25/14) Colectomy colonoscopy (11/21/15) Family History Maternal Cousin Colon cancer Maternal Cousin Colon cancer Social History Smoking/Tobacco Use Status: Former Tobacco Use alcohol intake: current alcohol intake frequency: other additional social history: drinks < 1/month Meds Home Medications Medication Instructions Recorded Confirmed Type pantoprazole 40 mg PO BID 11/27/12 02/21/18 History carvedilol 3.125 mg PO BID 05/30/13 02/21/18 History Levemir FlexTouch U-100 Insuln 45 units SUB-Q HS syr 06/11/15 02/21/18 Rx Novolog Flexpen U-100 Insulin 0 units SUB-Q 0800,1200,1700 syr 07/31/15 02/21/18 Rx tramadol 50 mg PO Q8H PRN #90 tab-cap 06/01/16 02/21/18 Rx carbidopa-levodopa 2 tab-cap PO QID tab-cap 10/24/16 02/21/18 History melatonin 5 mg PO HS 08/27/17 02/21/18 History Allergies Allergy/AdvReac Type Severity Reaction Status Date / Time leuprolide acetate Allergy Severe Swelling/Ed Verified 02/21/18 15:44 [From Lupron] isabelle adhesive Allergy Intermediate Skin Rash Verified 02/21/18 15:44 enalapril [Enalapril] AdvReac Severe Hyperkalemi Verified 02/21/18 15:44 a aspirin AdvReac Intermediate Verified 02/21/18 15:44 esomeprazole magnesium AdvReac Intermediate Diarrhea Verified 02/21/18 15:44 [From Nexium] metformin AdvReac Intermediate Diarrhea Verified 02/21/18 15:44 acetaminophen AdvReac Mild Diarrhea Verified 02/21/18 15:44 Exam Const General: cooperative, comfortable and no acute distress Nutritional Appearance: average body habitus Orientation: alert and oriented x3 HENMT Head: normocephalic and atraumatic Resp Effort & Inspection: normal respiratory effort and able to speak in complete sentences Auscultation: clear to auscultation bilaterally Cardio Jugular venous pressure: no JVD Rate: regular rate Rhythm: regular rhythm GI Inspection: scar (midline) Palpation: soft, not firm, no guarding, no masses and tender (mild tenderness to palpation in mid-abdomen) Auscultation: normal bowel sounds Skin General skin exam: no rashes or lesions noted and no jaundice Results Imaging Abdomen CT scan report/results: report reviewed and image reviewed CT scan - pelvis: report reviewed and image reviewed Imaging Studies: Patient Name: KAUR LORENZANA #: [id number]: ER Ordering Provider: : [facility] ER Primary Care Provider: Ismael Weber Date of Exam: 02/21/18Sex: M : 3Age: 77 Exam(s) EXAM: CT Abdomen and Pelvis With Contrast EXAM DATE/TIME: 02/21/2018 4:13 PM CLINICAL HISTORY: 77 years old, male; Pain; Abdominal pain; Localized; Other: Central abdominal; Patient HX: Central abdominal pain; Additional info: Cirrhosis TECHNIQUE: Axial computed tomography images of the abdomen and pelvis with intravenous contrast. Coronal and sagittal reformatted images were created and reviewed. COMPARISON: CT Private^ROUTINE ABDOMEN PELVIS WITHOUT (Adult) 02/03/2018 4:57 PM FINDINGS: Multiple loops of mildly dilated small bowel with nondilated more distal bowel loops and air within the colon consistent with a partial small bowel obstruction. The transition point appears to be related to a prior small bowel anastomosis in the midabdomen with surrounding inflammation. Fat-containing left paramedian anterior abdominal wall hernia with no bowel loops extending to the hernia defect. Nonobstructing bilateral nephrolithiasis. Prior cholecystectomy. Irregularity to the liver again dated with mild abdominal free fluid suggesting intrinsic liver disease. No obstructive uropathy. Moderate to large hiatal hernia unchanged from the prior exam. Mild left basilar lung scarring and/or atelectasis. Moderate splenomegaly. IMPRESSION: 1. Partial small bowel obstruction. 2. Intrinsic liver disease with secondary limitedly and free fluid. Dictated and Authenticated by: Kalen Casey MD. Ordering:MELISSA Burns MD Ordered By: CC: Dictated By: Reports vrad 02/21/18 1613 02/21/18 1737 Transcribed By: Tammy Callaway This is privileged, confidential information intended only for the provider named. Any use or distribution by any person other than this provider is strictly prohibited. If you receive this report in error, please notify us immediately at [phone] and return the original report to us at the address above. Thank-you. Labs : 02/21/18 16:20 02/21/18 16:20 Laboratory Results - last 24 hr 02/21/18 02/21/18 02/21/18 16:20 16:20 17:30 WBC 1.89 L* RBC 3.58 L Hgb 9.7 L Hct 29.9 L MCV 83.5 MCH 27.1 MCHC 32.4 RDW 20.1 H Plt Count 60 L MPV 11.6 H Immature Gran % 0.0 Neutrophils % 67.2 Lymphocytes % 16.4 Monocytes % 10.6 Eosinophils % 5.3 Basophils % 0.5 Absolute Neutrophils 1.27 Absolute Lymphocytes 0.31 L Absolute Monocytes 0.20 Absolute Eosinophils 0.10 Absolute Basophils 0.01 Differential Comment Plt morph reviewed RBC Morphology See below Anisocytosis 3+ Sodium 141 Potassium 3.6 Chloride 107 Carbon Dioxide 25.9 Anion Gap 8.1 BUN 11 Creatinine 0.82 Estimated GFR/1.73 m2 >= 60.00 Glucose 131 H Calcium 8.1 L Magnesium 1.7 L Total Bilirubin 1.0 AST 30 ALT 9 L Alkaline Phosphatase 157 H Troponin I < 0.02 Total Protein 6.1 L Albumin 2.6 L Lipase 222 Urine Color Yellow Urine Clarity Clear Urine pH 7.0 Ur Specific Bath 1.020 Urine Protein Negative Urine Ketones Trace H Urine Blood Moderate H Urine Nitrite Negative Urine Bilirubin Negative Urine Urobilinogen 2.0 H Ur Leukocyte Esterase Negative Urine RBC 20-50 H Urine WBC 10-20 Ur Epithelial Cells Rare Urine Crystals Negative Urine Bacteria Negative Urine Casts Negative Urine Mucus Negative Urine Other Negative Ur Culture Indicated? Yes Urine Glucose Negative Last Vital Signs Temp 36.9 C 02/21/18 19:06 Pulse 80 02/21/18 19:06 Resp 18 02/21/18 19:06 BP 133/71 02/21/18 19:06 Pulse Ox 98 02/21/18 19:06
[2018-02-21] MEDS: Carbidopa 25/Levodopa 100 TAB PO (22:18)
[2018-02-21] MEDS: MAGNESIUM SULFATE 1 GM/100 ML BAG IVPB (22:22)
[2018-02-21] MEDS: POTASSIUM CHLORIDE 20 MEQ/100 ML BAG 50 MEQ IVPB (23:44)
[2018-02-22] VITALS (7 sets, daily range): BP systolic 94–147; BP diastolic 51–79; PULSE 62–81; RESP 14–20; TEMP 36–37.3; O2SAT 96–100
[2018-02-22] MEDS: Insulin REGULAR-Human 100 UNITS/ML UNIT SC (00:15)
[2018-02-22 07:24] LABS: Anion Gap 4.2 mmol/L (3-11); BUN 10 mg/dL (7-18); CO2 25.8 mmol/L (21.0-32.0); CREATININE 0.87 mg/dL (0.70-1.30); Calcium 7.9 mg/dL (8.5-10.1); Chloride 110 mmol/L (98-107); Glucose 98 mg/dL (70-100); Magnesium 1.8 mg/dL (1.8-2.4); Potassium 3.9 mmol/L (3.5-5.1); Sodium 140 mmol/L (136-145)
--- NOTE | 2018-02-22 07:52 | DI.RAD_ITS ---
SYMPTOMS/DIAGNOSIS: ABDOMINAL PAIN, PARTIAL BOWEL OBSTRUCTION FLAT AND UPRIGHT ABDOMEN: Comparison CT scan is 02/21/18. The visualized lung bases are clear. The bowel gas pattern is nonspecific. No evidence of bowel obstruction, organomegaly or pneumoperitoneum is seen. There are surgical clips in the right upper quadrant of the abdomen, most suggestive of prior cholecystectomy. There are calcifications overlying the renal shadows consistent with the patient's known nephrolithiasis. Degenerative changes are seen in the spine. Surgical clips are seen in the pelvis. IMPRESSION: No evidence of bowel obstruction.
[2018-02-22] MEDS: Carbidopa 25/Levodopa 100 TAB PO ×4 (08:01→21:32)
[2018-02-22] MEDS: Pantoprazole 40 MG TABCR PO ×2 (08:01→21:32)
[2018-02-22] MEDS: Carvedilol 3.125 MG TAB PO ×2 (08:02→21:34)
--- NOTE | 2018-02-22 09:36 | DI.VRAD_ITS ---
EXAM: XR Abdomen, 2 Views EXAM DATE/TIME: 02/22/2018 12:00 AM CLINICAL HISTORY: 77 years old, male; Pain; Abdominal pain; Generalized; Patient HX: Abdominal pain. TECHNIQUE: Frontal view of the abdomen/pelvis with upright view of the abdomen. COMPARISON: CR ABD FLAT UPRIGHT PA CHEST 05/06/2016 6:[address] abdomen pelvis from 02/21/2018 FINDINGS: Gastrointestinal tract: No dilated bowel on today's study Intraperitoneal space: Surgical clips in the pelvis Surgical clips in the right upper quadrant. Bones/joints: Degenerative changes in the lumbar spine and both hips IMPRESSION: No dilated bowel. Dictated and Authenticated by: Fidelia Hernández MD. Ordering:JOSE Weathers MD
[2018-02-22] MEDS: Normal Saline 1,000 ML 25 ML IV (09:51)
[2018-02-22] MEDS: Ketorolac 15 MG/ML VIAL IVP (12:16)
[2018-02-22] MEDS: Normal Saline Flush 10 ML SYR IVP (12:21)
--- NOTE | 2018-02-22 12:46 | PGE_ITS ---
Date of Service Date of service: 02/22/18 Time of Service: 12:45 Assessment and Plan (1) Bowel obstruction: Current visit: Yes Status: Acute 77 y/o male admitted with abdominal pain, nausea, and vomiting. Findings on CT suggestive of PSBO. NG attempted unsuccessfully in ED. Symptoms improved with bowel rest. AXR this am suggest perhaps some underlying constipation as well. Labs noted. Will start on clear liquid diet with Miralax and Fleets enema. Cover blood sugars with sliding scale coverage til solid regular diet resumed. Further recommendations pending clinical course. Discussed with patient who is agreeable with plans as outlined above. Subjective Interval history since last seen: Patient notes that abdominal pain is improved but not yet resolved. (+) small, formed BMs this am. Denies nausea or vomiting. No flatus per patient. AXR this am - no bowel dilation noted. There appears to be a moderate amount of stool throughout the colon on my review. Exam Const General: cooperative, no acute distress and well developed Nutritional Appearance: well nourished Orientation: alert and oriented to person [facility] Head: normocephalic and atraumatic Resp Effort & Inspection: normal respiratory effort and able to speak in complete sentences GI Inspection: non-distended Palpation: soft, not firm, no guarding, no masses and tender (mildly tender but soft over hernia site in mid-abdomen) Skin General skin exam: no rashes or lesions noted and no jaundice Objective Objective Clinical Data: Abnormal lab results 02/21/18 02/21/18 02/21/18 Range/Units 16:20 16:20 17:30 WBC 1.89 L* (4.4-10.8) k/cumm RBC 3.58 L (4.50-6.00) m/cumm Hgb 9.7 L (13.5-17.5) g/dL Hct 29.9 L (40.0-50.0) % RDW 20.1 H (11.8-14.1) % Plt Count 60 L (130-400) x1000/uL MPV 11.6 H (8.0-11.0) fL Absolute Lymphocytes 0.31 L (1.2-3.4) k/cumm Chloride (98-107) mmol/L Glucose 131 H (70-100) mg/dL Calcium 8.1 L (8.5-10.1) mg/dL Magnesium 1.7 L (1.8-2.4) mg/dL ALT 9 L (12-78) U/L Alkaline Phosphatase 157 H (46-116) U/L Total Protein 6.1 L (6.4-8.2) g/dL Albumin 2.6 L (3.4-5.0) g/dL Urine Ketones Trace H (Negative) mg/dL Urine Blood Moderate H (Negative) Urine Urobilinogen 2.0 H (Up TO 0.2) EU/dL Urine RBC 20-50 H (0-2) 02/22/18 Range/Units 06:55 WBC (4.4-10.8) k/cumm RBC (4.50-6.00) m/cumm Hgb (13.5-17.5) g/dL Hct (40.0-50.0) % RDW (11.8-14.1) % Plt Count (130-400) x1000/uL MPV (8.0-11.0) fL Absolute Lymphocytes (1.2-3.4) k/cumm Chloride 110 H (98-107) mmol/L Glucose (70-100) mg/dL Calcium 7.9 L (8.5-10.1) mg/dL Magnesium (1.8-2.4) mg/dL ALT (12-78) U/L Alkaline Phosphatase (46-116) U/L Total Protein (6.4-8.2) g/dL Albumin (3.4-5.0) g/dL Urine Ketones (Negative) mg/dL Urine Blood (Negative) Urine Urobilinogen (Up TO 0.2) EU/dL Urine RBC (0-2) Vital Signs Temperature 36.5 C 02/22/18 11:10 Temperature Source Tympanic 02/22/18 11:10 Pulse 67 02/22/18 11:10 Pulse Rhythm Regular 02/22/18 08:35 Pulse 79 02/21/18 18:40 Respiratory Rate 14 02/22/18 11:10 Respiratory Effort Non-Labored 02/22/18 08:35 Respiratory Depth Normal 02/22/18 08:35 Respiratory Pattern Normal 02/22/18 08:35 Blood Pressure 128/70 02/22/18 11:10 Blood Pressure Mean 83 02/21/18 18:37 Blood Pressure Position Sitting 02/21/18 15:40 Pulse Oximetry 99 02/22/18 11:10 Oxygen Delivery Method Room Air 02/22/18 11:10 Oxygen Flow Rate 0 02/22/18 11:10 Pain Level 4 02/22/18 12:16 Intake & Output 02/21/18 02/22/18 02/22/18 23:59 11:59 23:59 Intake Total 583.333 / 583.333 545.416 / 545.416 Output Total 250 / 250 100 / 100 Balance 333.333 / 333.333 445.416 / 445.416 Weight 97.9 kg Intake: IV 583.333 / 583.333 545.416 / 545.416 Output: Urine 250 / 250 100 / 100 Other: Urine Color Yellow Yellow Urine Appearance Clear Clear Urine Odor Normal Comment voiding in urinal w/o difficulty Stool Size Large Stool Characteristics Soft Formed Brown Voiding Methods Urinal Toilet Laboratory Results WBC 1.89 k/cumm (4.4-10.8) L* 02/21/18 16:20 RBC 3.58 m/cumm (4.50-6.00) L 02/21/18 16:20 Hgb 9.7 g/dL (13.5-17.5) L 02/21/18 16:20 Hct 29.9 % (40.0-50.0) L 02/21/18 16:20 MCV 83.5 fL (80-95) 02/21/18 16:20 MCH 27.1 pg (27.0-33.0) 02/21/18 16:20 MCHC 32.4 g/dL (32.0-36.0) 02/21/18 16:20 RDW 20.1 % (11.8-14.1) H 02/21/18 16:20 Plt Count 60 x1000/uL (130-400) L 02/21/18 16:20 MPV 11.6 fL (8.0-11.0) H 02/21/18 16:20 Immature Gran % 0.0 02/21/18 16:20 Neutrophils % 67.2 02/21/18 16:20 Lymphocytes % 16.4 02/21/18 16:20 Monocytes % 10.6 02/21/18 16:20 Eosinophils % 5.3 02/21/18 16:20 Basophils % 0.5 02/21/18 16:20 Absolute Neutrophils 1.27 k/cumm (1.2-6.7) 02/21/18 16:20 Absolute Lymphocytes 0.31 k/cumm (1.2-3.4) L 02/21/18 16:20 Absolute Monocytes 0.20 k/cumm (0.11-0.7) 02/21/18 16:20 Absolute Eosinophils 0.10 k/cumm (0.0-0.7) 02/21/18 16:20 Absolute Basophils 0.01 k/cumm (0.0-0.2) 02/21/18 16:20 Differential Comment Plt morph reviewed 02/21/18 16:20 RBC Morphology See below 02/21/18 16:20 Anisocytosis 3+ 02/21/18 16:20 Sodium 140 mmol/L (136-145) 02/22/18 06:55 Potassium 3.9 mmol/L (3.5-5.1) 02/22/18 06:55 Chloride 110 mmol/L (98-107) H 02/22/18 06:55 Carbon Dioxide 25.8 mmol/L (21.0-32.0) 02/22/18 06:55 Anion Gap 4.2 mmol/L (3-11) 02/22/18 06:55 BUN 10 mg/dL (7-18) 02/22/18 06:55 Creatinine 0.87 mg/dL (0.70-1.30) 02/22/18 06:55 Estimated GFR/1.73 m2 >= 60.00 (mL/min/1.73m2) 02/22/18 06:55 Glucose 98 mg/dL (70-100) 02/22/18 06:55 Calcium 7.9 mg/dL (8.5-10.1) L 02/22/18 06:55 Magnesium 1.8 mg/dL (1.8-2.4) 02/22/18 06:55 Total Bilirubin 1.0 mg/dL (0.2-1.0) 02/21/18 16:20 AST 30 U/L (15-37) 02/21/18 16:20 ALT 9 U/L (12-78) L 02/21/18 16:20 Alkaline Phosphatase 157 U/L (46-116) H 02/21/18 16:20 Troponin I < 0.02 ng/mL (0.00-0.06) 02/21/18 16:20 Total Protein 6.1 g/dL (6.4-8.2) L 02/21/18 16:20 Albumin 2.6 g/dL (3.4-5.0) L 02/21/18 16:20 Lipase 222 U/L (73-393) 02/21/18 16:20 Urine Color Yellow (Yellow) 02/21/18 17:30 Urine Clarity Clear 02/21/18 17:30 Urine pH 7.0 (5-8) 02/21/18 17:30 Ur Specific [place] 1.020 (1.005-1.025) 02/21/18 17:30 Urine Protein Negative mg/dL (Negative) 02/21/18 17:30 Urine Ketones Trace mg/dL (Negative) H 02/21/18 17:30 Urine Blood Moderate (Negative) H 02/21/18 17:30 Urine Nitrite Negative (Negative) 02/21/18 17:30 Urine Bilirubin Negative (Negative) 02/21/18 17:30 Urine Urobilinogen 2.0 EU/dL (Up TO 0.2) H 02/21/18 17:30 Ur Leukocyte Esterase Negative (Negative) 02/21/18 17:30 Urine RBC 20-50 (0-2) H 02/21/18 17:30 Urine WBC 10-20 HPF (0-5) 02/21/18 17:30 Ur Epithelial Cells Rare HPF (Negative) 02/21/18 17:30 Urine Crystals Negative HPF (Negative) 02/21/18 17:30 Urine Bacteria Negative HPF (Negative) 02/21/18 17:30 Urine Casts Negative LPF (Negative) 02/21/18 17:30 Urine Mucus Negative (Negative) 02/21/18 17:30 Urine Other Negative (Negative) 02/21/18 17:30 Ur Culture Indicated? Yes 02/21/18 17:30 Urine Glucose Negative mg/dL (Negative) 02/21/18 17:30 Objective Narrative Objective Narrative: Patient Name: KAUR LORENZANA #: [id number]: MS Ordering Provider: : ADM IN Primary Care Provider: Ismael Weber Date of Exam: 02/22/18Sex: M : 3Age: 77 Exam(s) EXAM: XR Abdomen, 2 Views EXAM DATE/TIME: 02/22/2018 12:00 AM CLINICAL HISTORY: 77 years old, male; Pain; Abdominal pain; Generalized; Patient HX: Abdominal pain. TECHNIQUE: Frontal view of the abdomen/pelvis with upright view of the abdomen. COMPARISON: CR ABD FLAT UPRIGHT PA CHEST 05/06/2016 6:[address] abdomen pelvis from 02/21/2018 FINDINGS: Gastrointestinal tract: No dilated bowel on today's study Intraperitoneal space: Surgical clips in the pelvis Surgical clips in the right upper quadrant. Bones/joints: Degenerative changes in the lumbar spine and both hips IMPRESSION: No dilated bowel. Dictated and Authenticated by: Fidelia Hernández MD. Ordering:JOSE Weathers MD Ordered By: CC: Dictated By: Reports vrad 02/22/18 0000 02/22/18 0936 Transcribed By: Tammy Callaway This is privileged, confidential information intended only for the provider named. Any use or distribution by any person other than this provider is strictly prohibited. If you receive this report in error, please notify us immediately at [phone] and return the original report to us at the address above. Thank-you.
--- NOTE | 2018-02-22 15:50 | PDOC.CMIN ---
- If Service Date Differs Date of service: 02/22/18 Time of Service: 15:50 Care Management Initial Assess REASON FOR HOSPITALIZATION:: Bowel obstruction PAST MEDICAL HISTORY/PAST SURGICAL HISTORY:: Ventral hernia (Acute). DM (diabetes mellitus). GERD (gastroesophageal reflux disease). HTN (hypertension). IBS (irritable bowel syndrome). Iron deficiency anemia. Liver cirrhosis. HANS (obstructive sleep apnea). Parkinson disease. H/O ventral hernia repair (Acute). History of bowel resection (Acute). History of Leonid fundoplication (Chronic). BONE MARROW BIOPSY (11/25/14). Colectomy. colonoscopy (11/21/15) PREVIOUS FUNCTIONAL STATUS/SOCIAL/FAMILY SUPPORTS:: Drake resides alone at [facility]. He was previously a resident at [facility], and states that he has been at the [facility] since September. Drake's Gregoria remains a resident at [facility] and he visits her regularly. Drake states that he is not driving at this time and depends on [facility] for his transportation needs. CURRENT FUNCTIONAL STATUS:: Drake is lying in bed watching TV this morning. Pleasant and receptive to discussion. ADVANCE DIRECTIVES:: On file - Annabelle Ren is agent. Nara Manjarrez is alternate Has patient been provided with information about the portal?: Yes Did the patient sign up for the portal?: No CODE STATUS:: DNR/DNI INSURANCE COVERAGE / FINANCIAL ISSUES:: Medicare, Medicaid, [employer], Financial ASST 100 CURRENT HOME/COMMUNITY SERVICES/EQUIPMENT:: Currently Drake receives a hommaker through [facility]. He states that he has outpatient PT through [facility]. Drake has a CPAP, W/C, Motorized W/C, FWW, raised toilet seat, and shower chair at home. PRIMARY CARE PHYSICIAN:: Dr. Weber POTENTIAL DISCHARGE NEEDS:: F/U appointment with PCP PATIENT/FAMILY EDUCATION NEEDS:: Review DC instructions, any limitations, and ongoing DC planning discussion. Discuss 'Ask Me Three' ANTICIPATED BARRIERS TO DISCHARGE:: None identified at this time. TRANSPORTATION:: Via [facility] PLAN:: Drake to return home with a resumption of homemaker services once medically cleared. He will F/U with PCP and plan of care as prescribed. Drake statest hat he has an appointment tomorrow and would like CM to cancel RCT as he is hospitalized which CM will do. Drake to transport via [facility] at time of DC.
--- NOTE | 2018-02-22 15:59 | INITIAL_ITS ---
- If Service Date Differs Date of service: 02/22/18 Time of Service: 15:50 Care Management Initial Assess REASON FOR HOSPITALIZATION:: Bowel obstruction PAST MEDICAL HISTORY/PAST SURGICAL HISTORY:: Ventral hernia (Acute). DM (diabetes mellitus). GERD (gastroesophageal reflux disease). HTN (hypertension). IBS (irritable bowel syndrome). Iron deficiency anemia. Liver cirrhosis. HANS (obstructive sleep apnea). Parkinson disease. H/O ventral hernia repair (Acute). History of bowel resection (Acute). History of Leonid fundoplication (Chronic). BONE MARROW BIOPSY (11/25/14). Colectomy. colonoscopy (11/21/15) PREVIOUS FUNCTIONAL STATUS/SOCIAL/FAMILY SUPPORTS:: Drake resides alone at [facility]. He was previously a resident at [facility], and states that he has been at the [facility] since September. Drake's Gregoria remains a resident at [facility] and he visits her regularly. Drake states that he is not driving at this time and depends on [facility] for his transportation needs. CURRENT FUNCTIONAL STATUS:: Drake is lying in bed watching TV this morning. Pleasant and receptive to discussion. ADVANCE DIRECTIVES:: On file - Annabelle Ren is agent. Nara Manjarrez is alternate Has patient been provided with information about the portal?: Yes Did the patient sign up for the portal?: No CODE STATUS:: DNR/DNI INSURANCE COVERAGE / FINANCIAL ISSUES:: Medicare, Medicaid, [employer], Financial ASST 100 CURRENT HOME/COMMUNITY SERVICES/EQUIPMENT:: Currently Drake receives a hommaker through [facility]. He states that he has outpatient PT through [facility]. Drake has a CPAP, W/C, Motorized W/C, FWW, raised toilet seat, and shower chair at home. PRIMARY CARE PHYSICIAN:: Dr. Weber POTENTIAL DISCHARGE NEEDS:: F/U appointment with PCP PATIENT/FAMILY EDUCATION NEEDS:: Review DC instructions, any limitations, and ongoing DC planning discussion. Discuss 'Ask Me Three' ANTICIPATED BARRIERS TO DISCHARGE:: None identified at this time. TRANSPORTATION:: Via RCT PLAN:: Drake to return home with a resumption of homemaker services once medically cleared. He will F/U with PCP and plan of care as prescribed. Drake statest hat he has an appointment tomorrow and would like CM to cancel RCT as he is hospitalized which CM will do. Drake to transport via [facility] at time of DC.
[2018-02-22] MEDS: Normal Saline 1,000 ML 100 ML IV (19:01)
[2018-02-23] MEDS: Normal Saline Flush 10 ML SYR IVP ×2 (00:57→06:19)
[2018-02-23] MEDS: Ketorolac 15 MG/ML VIAL IVP ×2 (00:58→06:10)
[2018-02-23] MEDS: Normal Saline 1,000 ML 100 ML IV (04:50)
[2018-02-23 06:12] VITALS: BP 125/59; PULSE 58; RESP 18; TEMP 37.5
[2018-02-23] MEDS: Carbidopa 25/Levodopa 100 TAB PO ×4 (06:16→22:36)
[2018-02-23 07:35] VITALS: BP 138/71; PULSE 69; RESP 18; TEMP 36.7; O2SAT 98
--- NOTE | 2018-02-23 08:07 | W.PM.PROGNOT ---
Documented by User: WELLINGTON Espinosa 02/23/18 08:15 Date of Service Date of service: 02/23/18 Time of Service: 08:07 Assessment and Plan (1) Bowel obstruction: Current visit: Yes Status: Acute 77 y/o male admitted with abdominal pain, nausea, and vomiting. Findings on CT suggestive of PSBO. Symptoms have improved at this time and he is tolerating full liquid diet. He reports mild tenderness to palpation in suprapubic region. P// Diet- Will advance to regular, soft diet. Activity- Ambulate/transfer with assist Disposition- If tolerating regular diet, possible D/C home later today. Qualifiers: Intestinal obstruction extent: unspecified extent Intestinal obstruction type: unspecified Qualified Code(s): K56.609 - Unspecified intestinal obstruction, unspecified as to partial versus complete obstruction Subjective Interval history since last seen: Patient reports that he is feeling better this morning, however he continues to have lower abdominal cramping. He reports tolerating the full liquid diet, without any increase in abdominal pain or complaints of nausea or vomiting. He denies passing any flatus. He is voiding without difficulty. Exam Const General: cooperative and comfortable Orientation: alert and oriented x3 Resp Effort & Inspection: normal respiratory effort and no audible wheezes Auscultation: clear to auscultation bilaterally and no wheezes Cardio Rate: regular rate Rhythm: regular rhythm Heart Sounds: S1 normal, S2 normal and no murmurs GI Inspection: normal to inspection and visible herniation (ventral hernia- soft) Palpation: soft, no guarding and tender suprapubicly Auscultation: normal bowel sounds Objective Objective Clinical Data: Vital Signs Temperature 37.5 C 02/23/18 06:12 Temperature Source Tympanic 02/23/18 06:12 Pulse 58 L 02/23/18 06:12 Pulse Rhythm Regular 02/23/18 00:58 Pulse 79 02/21/18 18:40 Respiratory Rate 18 02/23/18 06:12 Respiratory Effort 02/23/18 00:58 Respiratory Depth Normal 02/23/18 00:58 Respiratory Pattern Normal 02/23/18 00:58 Blood Pressure 125/59 L 02/23/18 06:12 Blood Pressure Mean 83 02/21/18 18:37 Blood Pressure Position Sitting 02/21/18 15:40 Pulse Oximetry 98 02/22/18 23:40 Oxygen Delivery Method Room Air 02/23/18 06:12 Oxygen Flow Rate 0 02/23/18 06:12 Pain Level 7 02/23/18 06:19 Intake & Output 02/22/18 02/22/18 02/23/18 11:59 23:59 11:59 Intake Total 545.416 / 2165.416 1620 / 2165.416 601.667 / 601.667 Output Total 100 / 175 75 / 175 200 / 200 Balance 445.416 / 9110.249 5814 / 1990.416 401.667 / 401.667 Intake: IV 545.416 / 2788.484 2297 / 1925.416 601.667 / 601.667 Oral 240 / 240 Output: Urine 100 / 175 75 / 175 200 / 200 Other: Urine Color Yellow Light Vi Straw Urine Appearance Clear Clear Clear Urine Odor Normal Comment voiding in urinal w/o difficulty Stool Size Large Moderate Stool Characteristics Soft Soft Formed Brown Voiding Methods Toilet Urinal Urinal Laboratory Results WBC 1.89 k/cumm (4.4-10.8) L* 02/21/18 16:20 RBC 3.58 m/cumm (4.50-6.00) L 02/21/18 16:20 Hgb 9.7 g/dL (13.5-17.5) L 02/21/18 16:20 Hct 29.9 % (40.0-50.0) L 02/21/18 16:20 MCV 83.5 fL (80-95) 02/21/18 16:20 MCH 27.1 pg (27.0-33.0) 02/21/18 16:20 MCHC 32.4 g/dL (32.0-36.0) 02/21/18 16:20 RDW 20.1 % (11.8-14.1) H 02/21/18 16:20 Plt Count 60 x1000/uL (130-400) L 02/21/18 16:20 MPV 11.6 fL (8.0-11.0) H 02/21/18 16:20 Immature Gran % 0.0 02/21/18 16:20 Neutrophils % 67.2 02/21/18 16:20 Lymphocytes % 16.4 02/21/18 16:20 Monocytes % 10.6 02/21/18 16:20 Eosinophils % 5.3 02/21/18 16:20 Basophils % 0.5 02/21/18 16:20 Absolute Neutrophils 1.27 k/cumm (1.2-6.7) 02/21/18 16:20 Absolute Lymphocytes 0.31 k/cumm (1.2-3.4) L 02/21/18 16:20 Absolute Monocytes 0.20 k/cumm (0.11-0.7) 02/21/18 16:20 Absolute Eosinophils 0.10 k/cumm (0.0-0.7) 02/21/18 16:20 Absolute Basophils 0.01 k/cumm (0.0-0.2) 02/21/18 16:20 Differential Comment Plt morph reviewed 02/21/18 16:20 RBC Morphology See below 02/21/18 16:20 Anisocytosis 3+ 02/21/18 16:20 Sodium 140 mmol/L (136-145) 02/22/18 06:55 Potassium 3.9 mmol/L (3.5-5.1) 02/22/18 06:55 Chloride 110 mmol/L (98-107) H 02/22/18 06:55 Carbon Dioxide 25.8 mmol/L (21.0-32.0) 02/22/18 06:55 Anion Gap 4.2 mmol/L (3-11) 02/22/18 06:55 BUN 10 mg/dL (7-18) 02/22/18 06:55 Creatinine 0.87 mg/dL (0.70-1.30) 02/22/18 06:55 Estimated GFR/1.73 m2 >= 60.00 (mL/min/1.73m2) 02/22/18 06:55 Glucose 98 mg/dL (70-100) 02/22/18 06:55 Calcium 7.9 mg/dL (8.5-10.1) L 02/22/18 06:55 Magnesium 1.8 mg/dL (1.8-2.4) 02/22/18 06:55 Total Bilirubin 1.0 mg/dL (0.2-1.0) 02/21/18 16:20 AST 30 U/L (15-37) 02/21/18 16:20 ALT 9 U/L (12-78) L 02/21/18 16:20 Alkaline Phosphatase 157 U/L (46-116) H 02/21/18 16:20 Troponin I < 0.02 ng/mL (0.00-0.06) 02/21/18 16:20 Total Protein 6.1 g/dL (6.4-8.2) L 02/21/18 16:20 Albumin 2.6 g/dL (3.4-5.0) L 02/21/18 16:20 Lipase 222 U/L (73-393) 02/21/18 16:20 Urine Color Yellow (Yellow) 02/21/18 17:30 Urine Clarity Clear 02/21/18 17:30 Urine pH 7.0 (5-8) 02/21/18 17:30 Ur Specific [place] 1.020 (1.005-1.025) 02/21/18 17:30 Urine Protein Negative mg/dL (Negative) 02/21/18 17:30 Urine Ketones Trace mg/dL (Negative) H 02/21/18 17:30 Urine Blood Moderate (Negative) H 02/21/18 17:30 Urine Nitrite Negative (Negative) 02/21/18 17:30 Urine Bilirubin Negative (Negative) 02/21/18 17:30 Urine Urobilinogen 2.0 EU/dL (Up TO 0.2) H 02/21/18 17:30 Ur Leukocyte Esterase Negative (Negative) 02/21/18 17:30 Urine RBC 20-50 (0-2) H 02/21/18 17:30 Urine WBC 10-20 HPF (0-5) 02/21/18 17:30 Ur Epithelial Cells Rare HPF (Negative) 02/21/18 17:30 Urine Crystals Negative HPF (Negative) 02/21/18 17:30 Urine Bacteria Negative HPF (Negative) 02/21/18 17:30 Urine Casts Negative LPF (Negative) 02/21/18 17:30 Urine Mucus Negative (Negative) 02/21/18 17:30 Urine Other Negative (Negative) 02/21/18 17:30 Ur Culture Indicated? Yes 02/21/18 17:30 Urine Glucose Negative mg/dL (Negative) 02/21/18 17:30 Documented by User: Shelbi De La Torre MD 02/23/18 09:00
[2018-02-23] MEDS: Polyethylene Glycol 3350 17 GM PACKET PO ×2 (08:39→14:00)
--- NOTE | 2018-02-23 10:10 | PDOC.CMPRO ---
- If Service Date Differs Date of service: 02/23/18 Time of Service: 10:10 Care Management Progress Note S/O: Drake is sitting in his chair when CM visits this morning. He is engaged in conversation, makes good eye contact, and is talkative. Drake reports that he his having continued abdominal discomfort. His diet has been advanced to regular for lunch today. Drake reports that he lives at the [facility] and they are great. They are working on putting in additional supports in the shower for him which he feels will be beneficial. Drake has not complaints or concerns. He does have an iron infusion scheduled for today; STALIN Sanchez is currently working on scheduling for this. A: 77 year old male admitted for partial bowel obstruction. P: Drake will discharge home when medically ready per MD. Anticipate patient will discharge with resumption of homemaker services (1x/week) and follow up with his PCP. Drake will transport via [facility] at discharge. CM will continue to offer support to patient and care team regarding discharge planning and disposition.
--- NOTE | 2018-02-23 10:17 | CMPROGNOTE_ITS ---
- If Service Date Differs Date of service: 02/23/18 Time of Service: 10:10 Care Management Progress Note S/O: Drake is sitting in his chair when CM visits this morning. He is engaged in conversation, makes good eye contact, and is talkative. Drake reports that he his having continued abdominal discomfort. His diet has been advanced to regular for lunch today. Drake reports that he lives at the [facility] and they are great. They are working on putting in additional supports in the shower for him which he feels will be beneficial. Drake has not complaints or concerns. He does have an iron infusion scheduled for today; STALIN Sanchez is currently working on scheduling for this. A: 77 year old male admitted for partial bowel obstruction. P: Drake will discharge home when medically ready per MD. Anticipate patient will discharge with resumption of homemaker services (1x/week) and follow up with his PCP. Drake will transport via [facility] at discharge. CM will continue to offer support to patient and care team regarding discharge planning and disposition.
[2018-02-23] MEDS: Pantoprazole 40 MG TABCR PO ×2 (10:52→22:36)
[2018-02-23] MEDS: Carvedilol 3.125 MG TAB PO ×2 (10:52→22:36)
[2018-02-23 11:30] VITALS: BP 156/78; PULSE 64; RESP 18; TEMP 36.3; O2SAT 100
[2018-02-23] MEDS: Insulin Aspart 300 UNITS/3 ML PEN SC (11:59)
--- NOTE | 2018-02-23 16:06 | CHAPLAIN ---
Drake was sitting up in his chair when I visited. He easily engaged in a conversation, telling me about his previous surgeries and current blockage. He said they should have put a zipper in there, pointing to his abdomen. Drake went on to share some personal history. He is [place] and attended the [employer] in [place] before moving to [facility] His attended [facility] in [facility], but now lives at [facility].
[2018-02-23 16:34] VITALS: BP 162/85; PULSE 64; RESP 19; TEMP 36.1; O2SAT 100
--- NOTE | 2018-02-23 17:18 | PHARADMIT ---
Admission Pharmacy Clinical Review partial bowel obstruction Code Status DNR/DNI Current Weight 97.9 kg Renally Cleared and Narrow Therapeutic Index Meds Crcl ~70.00mL/min current meds okay QTc Value / Action Taken QTc 453 BP Control, Fever BP 162/85 afebrile Electrolytes reviewed Cl 110 DVT Prophylaxis none plt 60 Opiate Usage / Scheduled Bowel Regimen Ordered no/latesha Plt/SCr for Heparin / Enoxaparin plt 60 SCr 0.87 INR for Warfarin n/a H/H stable, WBC/Bands h/h 9.7/29.9 wbc 1.89 Antibiotic appropriateness n/a Cultures and Sensitivities urine culture grew strep sensitive to ampicillin and vanco Surgical ABX d/c within 24 hr n/a DM control / Insulin Dosing FSBG 213 sliding scale insulin aspart Heart Failure (Check EF%) (NUBIA's, B-Block, Diuretics) carvedilol IV to PO Switch n/a Home Meds Reviewed yes Home Meds Not Ordered insulin detemir, melatonin, tramadol(PRN) Comments
[2018-02-23] MEDS: Normal Saline 1,000 ML 30 ML IV (18:00)
--- NOTE | 2018-02-23 18:24 | PGE_ITS ---
Date of Service Date of service: 02/23/18 Time of Service: 16:30 Assessment and Plan (1) Bowel obstruction: Current visit: Yes Status: Acute A\\ SBO on admission ABDO Xray normal the next day Tolerating a regular diet P\\ Discharge in am and then he can get his iron infusion before going home Follow up with oncology and PCP after discharge Discharge with bowel regimen to avoid constipation Qualifiers: Intestinal obstruction type: unspecified Intestinal obstruction extent: unspecified extent Qualified Code(s): K56.609 - Unspecified intestinal obstruction, unspecified as to partial versus complete obstruction Subjective Interval history since last seen: Feels OK. Still complains of pain in the midline along his old scar but only if someone pushes on his abdomen. He ate lunch and dinner without N/V. He continues to have liquid stools after the miralax and enema. Exam Resp Effort & Inspection: normal respiratory effort Auscultation: clear to auscultation bilaterally Cardio Rate: regular rate Rhythm: regular rhythm GI Palpation: soft and tender (mild) periumbilically (along old midline incision) Auscultation: normal bowel sounds Objective Objective Clinical Data: Vital Signs Temperature 97.0 F L 02/23/18 16:34 Temperature Source Tympanic 02/23/18 16:34 Pulse 64 02/23/18 16:34 Pulse Rhythm Regular 02/23/18 17:52 Pulse 79 02/21/18 18:40 Respiratory Rate 19 02/23/18 16:34 Respiratory Effort 02/23/18 17:52 Respiratory Depth Normal 02/23/18 17:52 Respiratory Pattern Normal 02/23/18 17:52 Blood Pressure 162/85 H 02/23/18 16:34 Blood Pressure Mean 83 02/21/18 18:37 Blood Pressure Position Sitting 02/21/18 15:40 Pulse Oximetry 100 02/23/18 16:34 Oxygen Delivery Method Room Air 02/23/18 16:34 Oxygen Flow Rate 0 02/23/18 16:34 Pain Level 6 02/23/18 11:30 Intake & Output 02/22/18 02/23/18 02/23/18 23:59 11:59 23:59 Intake Total 1620 / 2165.416 931.667 / 2181.667 1250 / 2181.667 Output Total 75 / 175 300 / 300 Balance 1545 / 1990.416 631.667 / 9247.905 1793 / 1881.667 Intake: IV 1380 / 1925.416 601.667 / 1810.494 6425 / 1601.667 Oral 240 / 240 330 / 580 250 / 580 Output: Urine 75 / 175 200 / 200 Stool 100 / 100 Other: Urine Color Light Vi Straw Urine Appearance Clear Clear Clear Comment about 250cc's mixed w stool in commode Stool Size Moderate Moderate Small Stool Characteristics Soft Soft Liquid Hard Brown Liquid Brown Voiding Methods Urinal Urinal Laboratory Results WBC 1.89 k/cumm (4.4-10.8) L* 02/21/18 16:20 RBC 3.58 m/cumm (4.50-6.00) L 02/21/18 16:20 Hgb 9.7 g/dL (13.5-17.5) L 02/21/18 16:20 Hct 29.9 % (40.0-50.0) L 02/21/18 16:20 MCV 83.5 fL (80-95) 02/21/18 16:20 MCH 27.1 pg (27.0-33.0) 02/21/18 16:20 MCHC 32.4 g/dL (32.0-36.0) 02/21/18 16:20 RDW 20.1 % (11.8-14.1) H 02/21/18 16:20 Plt Count 60 x1000/uL (130-400) L 02/21/18 16:20 MPV 11.6 fL (8.0-11.0) H 02/21/18 16:20 Immature Gran % 0.0 02/21/18 16:20 Neutrophils % 67.2 02/21/18 16:20 Lymphocytes % 16.4 02/21/18 16:20 Monocytes % 10.6 02/21/18 16:20 Eosinophils % 5.3 02/21/18 16:20 Basophils % 0.5 02/21/18 16:20 Absolute Neutrophils 1.27 k/cumm (1.2-6.7) 02/21/18 16:20 Absolute Lymphocytes 0.31 k/cumm (1.2-3.4) L 02/21/18 16:20 Absolute Monocytes 0.20 k/cumm (0.11-0.7) 02/21/18 16:20 Absolute Eosinophils 0.10 k/cumm (0.0-0.7) 02/21/18 16:20 Absolute Basophils 0.01 k/cumm (0.0-0.2) 02/21/18 16:20 Differential Comment Plt morph reviewed 02/21/18 16:20 RBC Morphology See below 02/21/18 16:20 Anisocytosis 3+ 02/21/18 16:20 Sodium 140 mmol/L (136-145) 02/22/18 06:55 Potassium 3.9 mmol/L (3.5-5.1) 02/22/18 06:55 Chloride 110 mmol/L (98-107) H 02/22/18 06:55 Carbon Dioxide 25.8 mmol/L (21.0-32.0) 02/22/18 06:55 Anion Gap 4.2 mmol/L (3-11) 02/22/18 06:55 BUN 10 mg/dL (7-18) 02/22/18 06:55 Creatinine 0.87 mg/dL (0.70-1.30) 02/22/18 06:55 Estimated GFR/1.73 m2 >= 60.00 (mL/min/1.73m2) 02/22/18 06:55 Glucose 98 mg/dL (70-100) 02/22/18 06:55 Calcium 7.9 mg/dL (8.5-10.1) L 02/22/18 06:55 Magnesium 1.8 mg/dL (1.8-2.4) 02/22/18 06:55 Total Bilirubin 1.0 mg/dL (0.2-1.0) 02/21/18 16:20 AST 30 U/L (15-37) 02/21/18 16:20 ALT 9 U/L (12-78) L 02/21/18 16:20 Alkaline Phosphatase 157 U/L (46-116) H 02/21/18 16:20 Troponin I < 0.02 ng/mL (0.00-0.06) 02/21/18 16:20 Total Protein 6.1 g/dL (6.4-8.2) L 02/21/18 16:20 Albumin 2.6 g/dL (3.4-5.0) L 02/21/18 16:20 Lipase 222 U/L (73-393) 02/21/18 16:20 Urine Color Yellow (Yellow) 02/21/18 17:30 Urine Clarity Clear 02/21/18 17:30 Urine pH 7.0 (5-8) 02/21/18 17:30 Ur Specific [place] 1.020 (1.005-1.025) 02/21/18 17:30 Urine Protein Negative mg/dL (Negative) 02/21/18 17:30 Urine Ketones Trace mg/dL (Negative) H 02/21/18 17:30 Urine Blood Moderate (Negative) H 02/21/18 17:30 Urine Nitrite Negative (Negative) 02/21/18 17:30 Urine Bilirubin Negative (Negative) 02/21/18 17:30 Urine Urobilinogen 2.0 EU/dL (Up TO 0.2) H 02/21/18 17:30 Ur Leukocyte Esterase Negative (Negative) 02/21/18 17:30 Urine RBC 20-50 (0-2) H 02/21/18 17:30 Urine WBC 10-20 HPF (0-5) 02/21/18 17:30 Ur Epithelial Cells Rare HPF (Negative) 02/21/18 17:30 Urine Crystals Negative HPF (Negative) 02/21/18 17:30 Urine Bacteria Negative HPF (Negative) 02/21/18 17:30 Urine Casts Negative LPF (Negative) 02/21/18 17:30 Urine Mucus Negative (Negative) 02/21/18 17:30 Urine Other Negative (Negative) 02/21/18 17:30 Ur Culture Indicated? Yes 02/21/18 17:30 Urine Glucose Negative mg/dL (Negative) 02/21/18 17:30
--- NOTE | 2018-02-23 18:27 | W.PM.DS.N ---
Date of service: 02/24/18 DS: Diagnosis Discharge Diagnosis (1) Bowel obstruction: Status: Acute (2) Constipation: Status: Acute Discharge Plan Disposition Patient Disposition: HOME Condition: Stable Discharge Details Reason For Visit: PARTIAL BOWEL OBSTRUCTION Admit Date/Time: 02/21/18 17:58 Admit Provider: Jasiel Banks Attending Provider: Jasiel Banks Primary Care Provider: Ismael Weber [facility] Hospital Course: Mr. Ren is a 77 year old with chronic pancytopenia who was admitted on 02/21/17 with a PSBO. By the next day his Abdominal Xray showed resolution of the bowel dilatation. He had a lot of delfina in his colon so he was given 2 enemas and started on MiraLax BID. Patient started having BM at first firm and eventually liquid. CT scan of his abdomen also noted a fat containing hernia. No bowel noted withing the hernia. It is hard to palpate. he was started on clear liquids and advanced to full liquids on 02/22. On 02/23 he was given a regular diet for lunch and dinner which he tolerated. Patient was going to be discharged on 02/23 but he did not have a ride to go home or to get back to the hospital on 02/24 for his weekly iron infusion. Patient will therefore be discharged today 02/24 in the am. He will then go the transfusion room and get his transfusion and then be able to go home. Home Meds and New Rx's Prescriptions: Continued carbidopa-levodopa 1 EACH tablet,disintegrating 2 tab-cap PO QID RF: 0 melatonin 5 MG tablet 5 mg PO HS RF: 0 pantoprazole 40 MG tablet,delayed release (DR/EC) 40 mg PO BID RF: 0 carvedilol 3.125 MG tablet 3.125 mg PO BID RF: 0 Levemir FlexTouch U-100 Insuln 300 UNITS/3 ML insulin pen 45 units Sub-Q HS RF: 0 Novolog Flexpen U-100 Insulin 300 UNITS/3 ML insulin pen Sub-Q 0800,1200,1700 RF: 0 tramadol 50 MG tablet 50 mg PO Q8H PRN Qty: 90 RF: 0 Discharge Instructions Referrals: Ismael Weber [Primary Care Provider] - (1 week please) Activity:: Activity as Tolerated Equipment/Supplies:: No Equipment Needed Diet:: Carb Counting Exam Resp Effort & Inspection: normal respiratory effort Auscultation: clear to auscultation bilaterally Cardio Rate: regular rate Heart Sounds: no gallops, no murmurs and no rubs GI Inspection: normal to inspection Palpation: soft Auscultation: normal bowel sounds DS: Data Vitals/I&O Vitals and I&O: Vital Signs Temperature 97.0 F L 02/23/18 16:34 Temperature Source Tympanic 02/23/18 16:34 Pulse 64 02/23/18 16:34 Pulse Rhythm Regular 02/23/18 17:52 Pulse 79 02/21/18 18:40 Respiratory Rate 19 02/23/18 16:34 Respiratory Effort 02/23/18 17:52 Respiratory Depth Normal 02/23/18 17:52 Respiratory Pattern Normal 02/23/18 17:52 Blood Pressure 162/85 H 02/23/18 16:34 Blood Pressure Mean 83 02/21/18 18:37 Blood Pressure Position Sitting 02/21/18 15:40 Pulse Oximetry 100 02/23/18 16:34 Oxygen Delivery Method Room Air 02/23/18 16:34 Oxygen Flow Rate 0 02/23/18 16:34 Pain Level 6 02/23/18 11:30 Intake & Output 02/22/18 02/23/18 02/23/18 23:59 11:59 23:59 Intake Total 1620 / 2165.416 931.667 / 2181.667 1250 / 2181.667 Output Total 75 / 175 300 / 300 Balance 1545 / 1990.416 631.667 / 8825.861 0293 / 1881.667 Intake: IV 1380 / 1925.416 601.667 / 7504.397 0054 / 1601.667 Oral 240 / 240 330 / 580 250 / 580 Output: Urine 75 / 175 200 / 200 Stool 100 / 100 Other: Urine Color Light Vi Straw Urine Appearance Clear Clear Clear Comment about 250cc's mixed w stool in commode Stool Size Moderate Moderate Small Stool Characteristics Soft Soft Liquid Hard Brown Liquid Brown Voiding Methods Urinal Urinal [facility] Medical History Ventral hernia (Acute) DM (diabetes mellitus) GERD (gastroesophageal reflux disease) HTN (hypertension) IBS (irritable bowel syndrome) Iron deficiency anemia Liver cirrhosis HANS (obstructive sleep apnea) Parkinson disease Surgical History H/O ventral hernia repair (Acute) History of bowel resection (Acute) History of Leonid fundoplication (Chronic) BONE MARROW BIOPSY (11/25/14) Colectomy colonoscopy (11/21/15) Family History Maternal Cousin Colon cancer Maternal Cousin Colon cancer Social History Smoking/Tobacco Use Status: Former Tobacco Use alcohol intake: current alcohol intake frequency: other additional social history: drinks < 1/month
--- NOTE | 2018-02-23 18:35 | DSE_ITS ---
Date of service: 02/24/18 DS: Diagnosis Discharge Diagnosis (1) Bowel obstruction: Status: Acute (2) Constipation: Status: Acute Discharge Plan Disposition Patient Disposition: HOME Condition: Stable Discharge Details Reason For Visit: PARTIAL BOWEL OBSTRUCTION Admit Date/Time: 02/21/18 17:58 Admit Provider: Jasiel Banks Attending Provider: Jasiel Banks Primary Care Provider: Ismael Weber [facility] Hospital Course: Mr. Ren is a 77 year old with chronic pancytopenia who was admitted on 02/21/17 with a PSBO. By the next day his Abdominal Xray showed resolution of the bowel dilatation. He had a lot of delfina in his colon so he was given 2 enemas and started on MiraLax BID. Patient started having BM at first firm and eventually liquid. CT scan of his abdomen also noted a fat containing hernia. No bowel noted withing the hernia. It is hard to palpate. he was started on clear liquids and advanced to full liquids on 02/22. On 02/23 he was given a regular diet for lunch and dinner which he tolerated. Patient was going to be discharged on 02/23 but he did not have a ride to go home or to get back to the hospital on 02/24 for his weekly iron infusion. Patient will therefore be discharged today 02/24 in the am. He will then go the transfusion room and get his transfusion and then be able to go home. Home Meds and New Rx's Prescriptions: Continued carbidopa-levodopa 1 EACH tablet,disintegrating 2 tab-cap PO QID RF: 0 melatonin 5 MG tablet 5 mg PO HS RF: 0 pantoprazole 40 MG tablet,delayed release (DR/EC) 40 mg PO BID RF: 0 carvedilol 3.125 MG tablet 3.125 mg PO BID RF: 0 Levemir FlexTouch U-100 Insuln 300 UNITS/3 ML insulin pen 45 units Sub-Q HS RF: 0 Novolog Flexpen U-100 Insulin 300 UNITS/3 ML insulin pen Sub-Q 0800,1200,1700 RF: 0 tramadol 50 MG tablet 50 mg PO Q8H PRN Qty: 90 RF: 0 Discharge Instructions Referrals: Ismael Weber [Primary Care Provider] - (1 week please) Activity:: Activity as Tolerated Equipment/Supplies:: No Equipment Needed Diet:: Carb Counting Exam Resp Effort & Inspection: normal respiratory effort Auscultation: clear to auscultation bilaterally Cardio Rate: regular rate Heart Sounds: no gallops, no murmurs and no rubs GI Inspection: normal to inspection Palpation: soft Auscultation: normal bowel sounds DS: Data Vitals/I&O Vitals and I&O: Vital Signs Temperature 97.0 F L 02/23/18 16:34 Temperature Source Tympanic 02/23/18 16:34 Pulse 64 02/23/18 16:34 Pulse Rhythm Regular 02/23/18 17:52 Pulse 79 02/21/18 18:40 Respiratory Rate 19 02/23/18 16:34 Respiratory Effort 02/23/18 17:52 Respiratory Depth Normal 02/23/18 17:52 Respiratory Pattern Normal 02/23/18 17:52 Blood Pressure 162/85 H 02/23/18 16:34 Blood Pressure Mean 83 02/21/18 18:37 Blood Pressure Position Sitting 02/21/18 15:40 Pulse Oximetry 100 02/23/18 16:34 Oxygen Delivery Method Room Air 02/23/18 16:34 Oxygen Flow Rate 0 02/23/18 16:34 Pain Level 6 02/23/18 11:30 Intake & Output 02/22/18 02/23/18 02/23/18 23:59 11:59 23:59 Intake Total 1620 / 2165.416 931.667 / 2181.667 1250 / 2181.667 Output Total 75 / 175 300 / 300 Balance 1545 / 1990.416 631.667 / 4230.529 3087 / 1881.667 Intake: IV 1380 / 1925.416 601.667 / 4333.369 1132 / 1601.667 Oral 240 / 240 330 / 580 250 / 580 Output: Urine 75 / 175 200 / 200 Stool 100 / 100 Other: Urine Color Light Vi Straw Urine Appearance Clear Clear Clear Comment about 250cc's mixed w stool in commode Stool Size Moderate Moderate Small Stool Characteristics Soft Soft Liquid Hard Brown Liquid Brown Voiding Methods Urinal Urinal [facility] Medical History Ventral hernia (Acute) DM (diabetes mellitus) GERD (gastroesophageal reflux disease) HTN (hypertension) IBS (irritable bowel syndrome) Iron deficiency anemia Liver cirrhosis HANS (obstructive sleep apnea) Parkinson disease Surgical History H/O ventral hernia repair (Acute) History of bowel resection (Acute) History of Leonid fundoplication (Chronic) BONE MARROW BIOPSY (11/25/14) Colectomy colonoscopy (11/21/15) Family History Maternal Cousin Colon cancer Maternal Cousin Colon cancer Social History Smoking/Tobacco Use Status: Former Tobacco Use alcohol intake: current alcohol intake frequency: other additional social history: drinks < 1/month
[2018-02-23 21:27] VITALS: BP 138/70; PULSE 74; RESP 18; TEMP 37.6; O2SAT 96
[2018-02-24 00:14] VITALS: BP 138/65; PULSE 78; RESP 20; TEMP 37.1; O2SAT 98
[2018-02-24] MEDS: Normal Saline Flush 10 ML SYR IVP (00:39)
[2018-02-24] MEDS: Ketorolac 15 MG/ML VIAL IVP (00:40)
[2018-02-24 03:46] VITALS: BP 131/78; PULSE 70; RESP 20; TEMP 36.1; O2SAT 97
[2018-02-24] MEDS: Carbidopa 25/Levodopa 100 TAB PO (06:22)
[2018-02-24 07:30] VITALS: BP 146/74; PULSE 71; RESP 20; TEMP 36.7; O2SAT 97
[2018-02-24] MEDS: Insulin Aspart 300 UNITS/3 ML PEN SC (08:20)
--- NOTE | 2018-02-24 09:17 | PDOC.CMDIS ---
- If Service Date Differs Date of service: 02/24/18 Time of Service: 09:17 LACE Index Scoring Tool - Questions: Length of Stay (in days): 4 - 6 Acuity (Admit via E.D.?): Yes Comorbidities: Diabetes w/o Complication E.D. Visits: 3 - Answers: Total Score: 11 Risk of Readmission: High Risk Care Management Discharge Reason for Hospitalization: Bowel obstruction Discharge Plan: Drake will discharge home when medically ready per MD. Drake has a scheduled iron infusion at the hospital following discharge and will be transported via RCT w/c annette from [facility] at [address] Damon's office across the street. RCT will transport Drake home from Dr. Damon's at 1145. Patient/Family Education Needs: Discharge education, any limitations, and follow up plan of care. Ask Me Three discussion.
--- NOTE | 2018-02-24 10:31 | CMDISCH_ITS ---
- If Service Date Differs Date of service: 02/24/18 Time of Service: 09:17 LACE Index Scoring Tool - Questions: Length of Stay (in days): 4 - 6 Acuity (Admit via E.D.?): Yes Comorbidities: Diabetes w/o Complication E.D. Visits: 3 - Answers: Total Score: 11 Risk of Readmission: High Risk Care Management Discharge Reason for Hospitalization: Bowel obstruction Discharge Plan: Drake will discharge home when medically ready per MD. Drake has a scheduled iron infusion at the hospital following discharge and will be transported via RCT w/c annette from [facility] at [address] Damon's office across the street. RCT will transport Drake home from Dr. Damon's at 1145. Patient/Family Education Needs: Discharge education, any limitations, and follow up plan of care. Ask Me Three discussion.
== END 2018-02-24 09:20 | disposition home or self-care (01) | DRG 389 ==
LOC: ER 18:23 → MS 02-23 18:35
PROVIDERS: Admitting Provider Surgery; Emergency Provider Physician Assistant; PCP Family Medicine; Visit Provider Surgery
DX: K56.600 Partial intestinal obstruction, unspecified as to cause (principal); D61.818 Other pancytopenia; K59.00 Constipation, unspecified; E11.9 Type 2 diabetes mellitus without complications; I10 Essential (primary) hypertension; K58.9 Irritable bowel syndrome, unspecified; G47.33 Obstructive sleep apnea (adult) (pediatric); G20 Parkinson's disease; K43.9 Ventral hernia without obstruction or gangrene; R82.71 Bacteriuria
CPT/HCPCS: 36415; 36416; 36591; 80048; 80053; 82962; 83690; 87077; 93005; 96361; 96374; 96375; 96376; 99222; 99232; 99239; 99285; NC; 74019; 74177; 81003; 81015; 83735; 84484; 85025; 87086; 87186; 93010; 94660; J1885; J2270; J2405; J3475; J3480; J3490

== ENCOUNTER 2018-02-24 08:00 | Outpatient (RCR) | payer OTHER, SELFPAY ==
[2018-02-24] MEDS: IRON SUCROSE COMPLEX 200 MG in Normal Saline 100 ML 110 MG IVPB (09:39)
[2018-02-24] MEDS: Normal Saline Flush 10 ML SYR IVP (09:39)
== END 2018-03-19 23:59 | disposition home or self-care (01) ==
LOC: INF 08:00
PROVIDERS: PCP Family Medicine; Visit Provider Family Medicine
DX: K59.00 Constipation, unspecified (principal); G20 Parkinson's disease; E11.40 Type 2 diabetes mellitus with diabetic neuropathy, unspecified; Z79.4 Long term (current) use of insulin; I10 Essential (primary) hypertension; D50.0 Iron deficiency anemia secondary to blood loss (chronic)
CPT/HCPCS: 96365; 96523; 99213; J1756

== ENCOUNTER 2018-03-24 01:48 | Outpatient (RCR) | payer OTHER, SELFPAY ==
[2018-03-24] MEDS: Normal Saline Flush 10 ML SYR IVP (07:16)
[2018-03-24] MEDS: Heparin 500 UNITS/5 ML SYRINGE IV (07:17)
[2018-03-24 08:06] LABS: HCT 31.3 % (40.0-50.0); HGB 10.1 g/dL (13.5-17.5); Mean Corp. HGB Concentration 32.3 g/dL (32.0-36.0); Mean Corpuscular Hemoglobin 28.1 pg (27.0-33.0); Mean Corpuscular Volume 87.2 fL (80-95); Mean Platelet Volume 11.4 fL (8.0-11.0); RBC 3.59 m/cumm (4.50-6.00); RBC Distribution Width 17.3 % (11.8-14.1)
[2018-03-24 08:32] LABS: ALT 8 U/L (12-78); AST 35 U/L (15-37); Albumin 2.7 g/dL (3.4-5.0); Alkaline Phosphatase 191 U/L (46-116); Anion Gap 7.9 mmol/L (3-11); BUN 12 mg/dL (7-18); CO2 25.1 mmol/L (21.0-32.0); CREATININE 0.89 mg/dL (0.70-1.30); Calcium 8.2 mg/dL (8.5-10.1); Chloride 107 mmol/L (98-107); Ferritin 99 ng/mL (8-388); Glucose 164 mg/dL (70-100); Potassium 4.3 mmol/L (3.5-5.1); Sodium 140 mmol/L (136-145); Total Protein 6.6 g/dL (6.4-8.2)
[2018-03-24 08:46] LABS: White Blood Cell Count 1.75 k/cumm (4.4-10.8)
[2018-03-24 08:48] LABS: Absolute Eosinophil Count 0.09 k/cumm (0.0-0.7); Absolute Monocyte Count 0.12 k/cumm (0.11-0.7); Absolute Neutrophil Count 1.21 k/cumm (1.2-6.7); Atypical Lymphocytes % 1; Platelet Count 52 x1000/uL (130-400)
[2018-03-24 08:49] LABS: Anisocytosis 2+; Diff Comment Manual Differential; Schistocytes 1+
== END 2018-04-16 23:59 | disposition home or self-care (01) ==
LOC: INF 01:48
PROVIDERS: PCP Family Medicine; Visit Provider Internal Medicine
DX: D50.0 Iron deficiency anemia secondary to blood loss (chronic) (principal); Z45.2 Encounter for adjustment and management of vascular access device
CPT/HCPCS: 36591; 80053; 86900; 86901; 82728; 85025

== ENCOUNTER 2018-04-05 08:14 | Inpatient (IN) | payer OTHER, SELFPAY ==
[2018-04-05] VITALS (36 sets, daily range): BP systolic 110–161; BP diastolic 55–83; PULSE 86–95; RESP 16–42; TEMP 37.1–38.8; O2SAT 96–100
[2018-04-05] MEDS: Acetaminophen 650 MG SUPP PR (08:25)
--- NOTE | 2018-04-05 08:31 | W.ED.GENAD ---
Discharge Plan Disposition Patient Disposition: [facility] INPATIENT Condition: Serious Discharge Details Chief Complaint: GenMedical Clinical Impression: SIRS (systemic inflammatory response syndrome) Reason For Visit: FILIBERTO Primary Care Provider: Ismael Weber ED Provider: Vinay Moon Home Meds and New Rx's Prescriptions: No Action Lantus Solostar U-100 Insulin 100 unit/mL (3 mL) insulin pen 2 unit SC DAILY RF: 0 docusate sodium 100 mg tablet 200 mg PO DAILY Qty: 60 RF: 5 carbidopa-levodopa 1 EACH tablet,disintegrating 2 tab-cap PO QID RF: 0 melatonin 5 MG tablet 5 mg PO HS RF: 0 pantoprazole 40 MG tablet,delayed release (DR/EC) 40 mg PO BID RF: 0 carvedilol 3.125 MG tablet 3.125 mg PO BID RF: 0 Novolog Flexpen U-100 Insulin 300 UNITS/3 ML insulin pen Sub-Q 0800,1200,1700 RF: 0 tramadol 50 MG tablet 50 mg PO Q8H PRN Qty: 90 RF: 0 Medical Decision Making 8:40 --78-year-old male with diabetes, Parkinson's, here generally not feeling well, fever, vomiting and cough. Abdominal exam benign. SIRS criteria met. Concern for influenza. Will check rapid influenza testing. Consider pneumonia and sepsis. Patient is tachycardic and febrile. We will give Tylenol rectally. We will give IV fluid bolus. Check lactate and blood cultures. 10:15 --unclear source at this point. Flu negative. Chest x-ray interpreted by radiology: No focal consolidation. Urinalysis reviewed and not consistent with UTI. Given cough and respiratory symptoms. I will cover for pneumonia with ceftriaxone. Plan to admit. -- Patient reassessed and stable. 11:05 -- Spoke with Dr. Huff who will admit. Care transitioned to Dr. Huff. Consider port as source - one culture has been drawn from port and one from peripheral. HPI General Mode of arrival: EMS. Date/Time Provider Initiated Documentation: 04/05/18 08:26. Limitations to Documentation: altered mental status. Information obtained by: patient and EMS. HPI Narrative: 78-year-old male with multiple medical problems including diabetes, cirrhosis of the liver, hypertension, irritable bowel syndrome, Parkinson's disease, iron deficiency anemia, obstructive sleep apnea, presents with chief complaint of generally not feeling well. Patient notes that since last night he has been generally not feeling well. Symptoms are now severe. He has associated fever. Patient also notes that he had some vomiting this morning. Patient did receive flu shot this year. Related Data Home Medications Medication Instructions Recorded Confirmed pantoprazole 40 mg PO BID 11/27/12 02/24/18 carvedilol 3.125 mg PO BID 05/30/13 02/24/18 Novolog Flexpen U-100 Insulin 0 units SUB-Q 0800,1200,1700 syr 07/31/15 02/24/18 tramadol 50 mg PO Q8H PRN #90 tab-cap 06/01/16 02/24/18 carbidopa-levodopa 2 tab-cap PO QID tab-cap 10/24/16 02/24/18 melatonin 5 mg PO HS 08/27/17 02/24/18 docusate sodium 100 mg tablet 200 mg PO DAILY #60 tab 02/24/18 02/24/18 insulin glargine (U-100) 100 2 unit SC DAILY ml 02/24/18 02/24/18 unit/mL (3 mL) subcutaneous pen Previous Rx's Medication Instructions Recorded Novolog Flexpen U-100 Insulin 0 units SUB-Q 0800,1200,1700 syr 07/31/15 tramadol 50 mg PO Q8H PRN #90 tab-cap 06/01/16 docusate sodium 100 mg tablet 200 mg PO DAILY #60 tab 02/24/18 Allergies Allergy/AdvReac Type Severity Reaction Status Date / Time leuprolide acetate Allergy Severe Swelling/Ed Verified 04/05/18 08:23 [From Lupron] isabelle adhesive Allergy Intermediate Skin Rash Verified 04/05/18 08:23 enalapril [Enalapril] AdvReac Severe Hyperkalemi Verified 04/05/18 08:23 a aspirin AdvReac Intermediate Verified 04/05/18 08:23 esomeprazole magnesium AdvReac Intermediate Diarrhea Verified 04/05/18 08:23 [From Nexium] metformin AdvReac Intermediate Diarrhea Verified 04/05/18 08:23 acetaminophen AdvReac Mild Diarrhea Verified 04/05/18 08:23 General Stated Complaint: GenMedical SHEKHAR: 3 Review of Systems Review of Systems All systems reviewed & are unremarkable except as noted in HPI and below Constitutional Reports fever(s) Respiratory Reports cough Gastrointestinal Denies abdominal pain, Reports nausea and Reports vomiting [facility] Medical History Ventral hernia (Acute) DM (diabetes mellitus) GERD (gastroesophageal reflux disease) HTN (hypertension) IBS (irritable bowel syndrome) Iron deficiency anemia Liver cirrhosis HANS (obstructive sleep apnea) Parkinson disease Surgical History H/O ventral hernia repair (Acute) History of bowel resection (Acute) History of Leonid fundoplication (Chronic) BONE MARROW BIOPSY (11/25/14) Colectomy colonoscopy (11/21/15) Family History Maternal Cousin Colon cancer Maternal Cousin Colon cancer Social History marital status details: Smoking and Tabacco status: Former Tobacco Use alcohol intake: current alcohol intake frequency: other additional social history: drinks < 1/month Exam Const General: cooperative and no acute distress Orientation: alert and awake HENMT Head: normocephalic and atraumatic Mouth: mucous membranes dry Throat: posterior oropharynx normal Eyes Conjunctivae: normal conjunctivae Sclera: normal sclerae EOM: EOM intact bilaterally Neck Neck: trachea midline and supple Resp Auscultation: clear to auscultation bilaterally, no rales, no rhonchi and no wheezes Cardio Jugular venous pressure: no JVD Rate: tachycardic Rhythm: regular rhythm GI Palpation: soft, not firm, no guarding, no masses, not rigid and nontender Skin General skin exam: no rashes or lesions noted Neuro General: alert, awake, oriented Patient Orientation: Person, Place and Confused and tone normal Motor: other ([place]) Extrem General: no edema Psych Appearance: grossly normal Course Vital Signs Temperature 38.8 C H 04/05/18 08:18 Pulse 95 H 04/05/18 08:18 Respiratory Rate 16 04/05/18 08:18 Blood Pressure 161/59 H 04/05/18 08:18 Pulse Oximetry 96 04/05/18 08:18 Temperature 38.8 C H 04/05/18 08:18 Temperature Source Temporal Artery Scan 04/05/18 08:18 Pulse 95 H 04/05/18 08:18 Respiratory Rate 16 04/05/18 08:20 Respiratory Effort Non-Labored 04/05/18 08:20 Respiratory Depth Normal 04/05/18 08:20 Respiratory Pattern Normal 04/05/18 08:20 Blood Pressure 161/59 H 04/05/18 08:18 Blood Pressure Position Supine 04/05/18 08:18 Pulse Oximetry 96 04/05/18 08:18 Oxygen Delivery Method Room Air 04/05/18 08:18 Oxygen Flow Rate 0 04/05/18 08:18 Pain Level 0 04/05/18 08:18 Lab/Test Results Lab/Test Results: 04/05/18 08:27 Blood Blood Culture - Pending 04/05/18 08:27 Blood Blood Culture - Pending 04/05/18 08:14 Nose Influenza Types A,B Antigen - Pending
--- NOTE | 2018-04-05 08:35 | ED.GENADUL_ITS ---
Discharge Plan Disposition Patient Disposition: [facility] INPATIENT Condition: Serious Discharge Details Chief Complaint: GenMedical Clinical Impression: SIRS (systemic inflammatory response syndrome) Reason For Visit: FILIBERTO Primary Care Provider: Ismael Weber ED Provider: Vinay Moon Home Meds and New Rx's Prescriptions: No Action Lantus Solostar U-100 Insulin 100 unit/mL (3 mL) insulin pen 2 unit SC DAILY RF: 0 docusate sodium 100 mg tablet 200 mg PO DAILY Qty: 60 RF: 5 carbidopa-levodopa 1 EACH tablet,disintegrating 2 tab-cap PO QID RF: 0 melatonin 5 MG tablet 5 mg PO HS RF: 0 pantoprazole 40 MG tablet,delayed release (DR/EC) 40 mg PO BID RF: 0 carvedilol 3.125 MG tablet 3.125 mg PO BID RF: 0 Novolog Flexpen U-100 Insulin 300 UNITS/3 ML insulin pen Sub-Q 0800,1200,1700 RF: 0 tramadol 50 MG tablet 50 mg PO Q8H PRN Qty: 90 RF: 0 Medical Decision Making 8:40 --78-year-old male with diabetes, Parkinson's, here generally not feeling well, fever, vomiting and cough. Abdominal exam benign. SIRS criteria met. Concern for influenza. Will check rapid influenza testing. Consider pneumonia and sepsis. Patient is tachycardic and febrile. We will give Tylenol rectally. We will give IV fluid bolus. Check lactate and blood cultures. 10:15 --unclear source at this point. Flu negative. Chest x-ray interpreted by radiology: No focal consolidation. Urinalysis reviewed and not consistent with UTI. Given cough and respiratory symptoms. I will cover for pneumonia with ceftriaxone. Plan to admit. -- Patient reassessed and stable. 11:05 -- Spoke with Dr. Huff who will admit. Care transitioned to Dr. Huff. Consider port as source - one culture has been drawn from port and one from peripheral. HPI General Mode of arrival: EMS . Date/Time Provider Initiated Documentation: 04/05/18 08:26 . Limitations to Documentation: altered mental status . Information obtained by: patient and EMS . HPI Narrative: 78-year-old male with multiple medical problems including diabetes, cirrhosis of the liver, hypertension, irritable bowel syndrome, Parkinson's disease, iron deficiency anemia, obstructive sleep apnea, presents with chief complaint of generally not feeling well. Patient notes that since last night he has been generally not feeling well. Symptoms are now severe. He has associated fever. Patient also notes that he had some vomiting this morning. Patient did receive flu shot this year. Related Data Home Medications Medication Instructions Recorded Confirmed pantoprazole 40 mg PO BID 11/27/12 02/24/18 carvedilol 3.125 mg PO BID 05/30/13 02/24/18 Novolog Flexpen U-100 Insulin 0 units SUB-Q 0800,1200,1700 syr 07/31/15 02/24/18 tramadol 50 mg PO Q8H PRN #90 tab-cap 06/01/16 02/24/18 carbidopa-levodopa 2 tab-cap PO QID tab-cap 10/24/16 02/24/18 melatonin 5 mg PO HS 08/27/17 02/24/18 docusate sodium 100 mg tablet 200 mg PO DAILY #60 tab 02/24/18 02/24/18 insulin glargine (U-100) 100 2 unit SC DAILY ml 02/24/18 02/24/18 unit/mL (3 mL) subcutaneous pen Previous Rx's Medication Instructions Recorded Novolog Flexpen U-100 Insulin 0 units SUB-Q 0800,1200,1700 syr 07/31/15 tramadol 50 mg PO Q8H PRN #90 tab-cap 06/01/16 docusate sodium 100 mg tablet 200 mg PO DAILY #60 tab 02/24/18 Allergies Allergy/AdvReac Type Severity Reaction Status Date / Time leuprolide acetate Allergy Severe Swelling/Ed Verified 04/05/18 08:23 [From Lupron] isabelle adhesive Allergy Intermediate Skin Rash Verified 04/05/18 08:23 enalapril [Enalapril] AdvReac Severe Hyperkalemi Verified 04/05/18 08:23 a aspirin AdvReac Intermediate Verified 04/05/18 08:23 esomeprazole magnesium AdvReac Intermediate Diarrhea Verified 04/05/18 08:23 [From Nexium] metformin AdvReac Intermediate Diarrhea Verified 04/05/18 08:23 acetaminophen AdvReac Mild Diarrhea Verified 04/05/18 08:23 General Stated Complaint: GenMedical SHEKHAR: 3 Review of Systems Review of Systems All systems reviewed & are unremarkable except as noted in HPI and below Constitutional Reports fever(s) Respiratory Reports cough Gastrointestinal Denies abdominal pain, Reports nausea and Reports vomiting [facility] Medical History Ventral hernia (Acute) DM (diabetes mellitus) GERD (gastroesophageal reflux disease) HTN (hypertension) IBS (irritable bowel syndrome) Iron deficiency anemia Liver cirrhosis HANS (obstructive sleep apnea) Parkinson disease Surgical History H/O ventral hernia repair (Acute) History of bowel resection (Acute) History of Leonid fundoplication (Chronic) BONE MARROW BIOPSY (11/25/14) Colectomy colonoscopy (11/21/15) Family History Maternal Cousin Colon cancer Maternal Cousin Colon cancer Social History marital status details: Smoking and Tabacco status: Former Tobacco Use alcohol intake: current alcohol intake frequency: other additional social history: drinks < 1/month Exam Const General: cooperative and no acute distress Orientation: alert and awake HENMT Head: normocephalic and atraumatic Mouth: mucous membranes dry Throat: posterior oropharynx normal Eyes Conjunctivae: normal conjunctivae Sclera: normal sclerae EOM: EOM intact bilaterally Neck Neck: trachea midline and supple Resp Auscultation: clear to auscultation bilaterally, no rales, no rhonchi and no wheezes Cardio Jugular venous pressure: no JVD Rate: tachycardic Rhythm: regular rhythm GI Palpation: soft, not firm, no guarding, no masses, not rigid and nontender Skin General skin exam: no rashes or lesions noted Neuro General: alert, awake, oriented Patient Orientation: Person, Place and Confused and tone normal Motor: other ([place]) Extrem General: no edema Psych Appearance: grossly normal Course Vital Signs Temperature 38.8 C H 04/05/18 08:18 Pulse 95 H 04/05/18 08:18 Respiratory Rate 16 04/05/18 08:18 Blood Pressure 161/59 H 04/05/18 08:18 Pulse Oximetry 96 04/05/18 08:18 Temperature 38.8 C H 04/05/18 08:18 Temperature Source Temporal Artery Scan 04/05/18 08:18 Pulse 95 H 04/05/18 08:18 Respiratory Rate 16 04/05/18 08:20 Respiratory Effort Non-Labored 04/05/18 08:20 Respiratory Depth Normal 04/05/18 08:20 Respiratory Pattern Normal 04/05/18 08:20 Blood Pressure 161/59 H 04/05/18 08:18 Blood Pressure Position Supine 04/05/18 08:18 Pulse Oximetry 96 04/05/18 08:18 Oxygen Delivery Method Room Air 04/05/18 08:18 Oxygen Flow Rate 0 04/05/18 08:18 Pain Level 0 04/05/18 08:18 Lab/Test Results Lab/Test Results: 04/05/18 08:27 Blood Blood Culture - Pending 04/05/18 08:27 Blood Blood Culture - Pending 04/05/18 08:14 Nose Influenza Types A,B Antigen - Pending
[2018-04-05 08:44] LABS: Lactate 1.9 mmol/L (0.6-1.4)
[2018-04-05 08:47] LABS: Abs Immature Grans 0.03 k/cumm (0.0-0.09); Absolute Basophil Count 0.01 k/cumm (0.0-0.2); Absolute Eosinophil Count 0.03 k/cumm (0.0-0.7); Absolute Lymphocyte Count 0.22 k/cumm (1.2-3.4); Absolute Monocyte Count 0.35 k/cumm (0.11-0.7); Basophils % 0.2; Eosinophils % 0.7; HCT 29.6 % (40.0-50.0); HGB 9.9 g/dL (13.5-17.5); Immature Grans % 0.7; Lymphocytes % 5.4; Mean Corp. HGB Concentration 33.4 g/dL (32.0-36.0); Mean Corpuscular Hemoglobin 29.5 pg (27.0-33.0); Mean Corpuscular Volume 88.1 fL (80-95); Mean Platelet Volume 11.4 fL (8.0-11.0); Monocytes % 8.6; Neutrophils % 84.4; RBC 3.36 m/cumm (4.50-6.00); RBC Distribution Width 16.3 % (11.8-14.1); White Blood Cell Count 4.06 k/cumm (4.4-10.8)
[2018-04-05] MEDS: Lactated Ringers 500 ML IV (08:53)
[2018-04-05 08:57] LABS: Absolute Neutrophil Count 3.43 k/cumm (1.2-6.7); Platelet Count 42 x1000/uL (130-400)
[2018-04-05 09:00] LABS: ALT 21 U/L (12-78); AST 37 U/L (15-37); Albumin 2.5 g/dL (3.4-5.0); Alkaline Phosphatase 179 U/L (46-116); Anion Gap 8.1 mmol/L (3-11); BUN 12 mg/dL (7-18); Bilirubin, Total 1.9 mg/dL (0.2-1.0); CO2 24.9 mmol/L (21.0-32.0); CREATININE 1.04 mg/dL (0.70-1.30); Calcium 7.7 mg/dL (8.5-10.1); Chloride 107 mmol/L (98-107); Glucose 196 mg/dL (70-100); Potassium 3.7 mmol/L (3.5-5.1); Sodium 140 mmol/L (136-145); Total Protein 6.5 g/dL (6.4-8.2)
--- NOTE | 2018-04-05 09:12 | DI.RAD_ITS ---
SYMPTOMS/DIAGNOSIS: COUGH CHEST: Frontal and lateral views. Comparison with prior examinations. The heart size is within normal limits. The pulmonary vasculature is within normal limits. There is an infusaport catheter. The tip of the catheter is in good position in the superior vena cava. No focal consolidating infiltrates, effusions or pneumothoraces are identified. Degenerative changes are seen in the spine. IMPRESSION: No acute pulmonary process.
--- NOTE | 2018-04-05 09:44 | DI.VRAD_ITS ---
EXAM: XR Chest, 2 Views EXAM DATE/TIME: 04/05/2018 8:28 AM CLINICAL HISTORY: 78 years old, male; Signs and symptoms; Other: Cough TECHNIQUE: XR of the chest, 2 views. COMPARISON: CR ABD FLAT UPRIGHT PA CHEST 05/06/2016 6:33 PM FINDINGS: Lungs: Left basilar atelectasis . No focal consolidation Pleural space: Unremarkable. No pleural effusion. No pneumothorax. Heart/Mediastinum: Stable cardiac silhouette Vasculature: MediPort terminates in the superior vena cava Bones/joints: Healed right rib fractures IMPRESSION: No focal consolidation Dictated and Authenticated by: Fidelia Hernández MD. Ordering:AL Mclean MD
[2018-04-05 09:49] LABS: Bilirubin Small (Negative); Blood Large (Negative); Clarity Sl Cloudy; Glucose 100 mg/dL (Negative); Ketones Trace mg/dL (Negative); Leukocyte Esterase Negative (Negative); Nitrite Negative (Negative); Specific Gravity 1.015 (1.005-1.025); Urobilinogen >=8.0 EU/dL (Up TO 0.2); pH >= 9.0 (5-8)
[2018-04-05 10:03] LABS: Epithelial Cells Negative HPF (Negative); RBC >50 (0-2)
[2018-04-05 10:08] LABS: Bacteria Negative HPF (Negative); Casts Negative LPF (Negative); Crystals Negative HPF (Negative); Mucus Trace (Negative); Other Cells Few Renal (Negative)
[2018-04-05 10:09] LABS: C & S Indicated? No
[2018-04-05] MEDS: Albuterol/Ipratropium 3 ML UPD VIAL UPD ×3 (13:37→23:25)
[2018-04-05] MEDS: Normal Saline 1,000 ML 75 ML IV (16:00)
[2018-04-05] MEDS: Acetaminophen 325 MG TAB PO (16:10)
[2018-04-05] MEDS: Insulin Aspart 300 UNITS/3 ML PEN SC ×2 (17:56→21:28)
[2018-04-05] MEDS: PIPERACILLIN/TAZO 4.5 GM in Normal Saline 100 ML IVPB (17:57)
--- NOTE | 2018-04-05 18:24 | W.PM.HP.N ---
Date of service: 04/05/18 Time of Service: 18:24 Assessment and Plan (1) Fever: Current visit: Yes Status: Acute Etiology unclear. DDx: influenza with a false negative rapid flu test vs bacteremia vs other noninfectious course. While influenza PCR is pending, will treat empirically with tamiflu. Blood cultures are pending. Treat empirically with vancomycin/zosyn (did have a recent hospitalization for SBO). Gentle IVF. Follow culture data. (2) Generalized weakness: Current visit: Yes Status: Acute Tx fever as above. PT/OT. Resume Parkinson's meds. (3) Diabetes mellitus, insulin dependent (IDDM), controlled: Current visit: Yes Status: Acute Cover with SSI (4) Ambulatory dysfunction: Current visit: Yes Status: Acute PT/OT consutled (5) Parkinsons disease: Current visit: Yes Status: Chronic continue home meds (6) Pancytopenia: Current visit: No Status: Chronic chronic/at baseline. Monitor counts. Avoid chemical and mechanical DVT ppx. (7) Cirrhosis of liver: Current visit: No Status: Chronic Stable. (8) Hematuria: Current visit: No Status: Chronic F/u as outpatient (9) Discharge planning issues: Current visit: Yes Status: Acute Patient had a lengthy discussion with me in regards to his code status - he would like to have everything done if there is hope of returning to his current quality of life. DNR/DNI in the computer was rescinded. 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 The patient states that last night he felt like he had the flu or a cold coming on - he felt achy, tired, generally weak. He felt subjective fevers and had a headache. Denies sore throat or runny nose and did not have a cough. He stated that when he wanted to go have a BM this morning, he was too weak to get out of bed, so he called for help. He lives at [facility]. Evidently, he could not be gotten up by the staff of the assisted living, so EMS were called. When EMS arrived, the patient stated he vomited once, but he wasn't previously nauseated, denied any abdominal pain or diarrhea. On arrival to ER, the patient was febrile to 38.8 and this was not responding to tylenol. His rapid flu test was negative. Because the patient has a mediport in place, bacteremia was thought to be on the differential, so he was covered with broad spectrum antibiotics and we were asked to admit the patient for further care. Review of Systems Review of Systems 12 systems reviewed. Pertinent positives and negatives are as per HPI. Additionally, the patient states that he has not had any urinary symptoms other than nocturia. [facility] Medical History Esophageal varices (Chronic) Pancytopenia (Chronic) Ventral hernia (Chronic) DM (diabetes mellitus) GERD (gastroesophageal reflux disease) HTN (hypertension) IBS (irritable bowel syndrome) Iron deficiency anemia Liver cirrhosis HANS (obstructive sleep apnea) Parkinson disease Surgical History H/O ventral hernia repair (Chronic) History of Leonid fundoplication (Chronic) History of bowel resection (Chronic) BONE MARROW BIOPSY (11/25/14) Colectomy colonoscopy (11/21/15) Family History Maternal Cousin Colon cancer Maternal Cousin Colon cancer Social History marital status details: Smoking and Tabacco status: Former Tobacco Use alcohol intake: current alcohol intake frequency: other additional social history: drinks < 1/month Meds Home Medications Medication Instructions Recorded Confirmed Type pantoprazole 40 mg PO BID 11/27/12 04/05/18 History carvedilol 3.125 mg PO BID 05/30/13 04/05/18 History melatonin 5 mg PO HS 08/27/17 04/05/18 History Novolog Flexpen U-100 Insulin 0 units SUB-Q AC 04/05/18 04/05/18 History carbidopa-levodopa 2 tab PO QID 04/05/18 04/05/18 History magnesium oxide 250 mg PO DAILY 04/05/18 04/05/18 History sucralfate [Carafate] 10 ml PO AC & HS 04/05/18 04/05/18 History tramadol 50 mg PO HS PRN PRN 04/05/18 04/05/18 History Allergies Allergy/AdvReac Type Severity Reaction Status Date / Time leuprolide acetate Allergy Severe Swelling/Ed Verified 04/05/18 08:23 [From Lupron] isabelle adhesive Allergy Intermediate Skin Rash Verified 04/05/18 08:23 enalapril [Enalapril] AdvReac Severe Hyperkalemi Verified 04/05/18 08:23 a aspirin AdvReac Intermediate Verified 04/05/18 08:23 esomeprazole magnesium AdvReac Intermediate Diarrhea Verified 04/05/18 08:23 [From Nexium] metformin AdvReac Intermediate Diarrhea Verified 04/05/18 08:23 acetaminophen AdvReac Mild Diarrhea Verified 04/05/18 08:23 Exam Narrative Exam Narrative: General: Very pleasant elderly male, appears weak and ill, sitting up in a chair Neurological: A&Ox3, no focal deficits Psychiatric: appropriate speech pattern/content Skin: intact HEENT: EOMI, dry MM Cardiovascular: RRR, no m/r/g Lungs: Diminished breath sounds B Gastrointestinal: abdomen soft, nontender, nondistended Genitourinary: deferred Extremities: trace edema BLE's - symmetric; no clubbing/cyanosis BLE's Results Imaging Additional studies: CXR: No focal consolidation Labs : 04/05/18 08:35 04/05/18 08:35 Laboratory Results - last 24 hr 04/05/18 04/05/18 04/05/18 08:35 08:35 08:35 WBC 4.06 L RBC 3.36 L Hgb 9.9 L Hct 29.6 L MCV 88.1 MCH 29.5 MCHC 33.4 RDW 16.3 H Plt Count 42 L MPV 11.4 H Immature Gran % 0.7 Neutrophils % 84.4 Lymphocytes % 5.4 Monocytes % 8.6 Eosinophils % 0.7 Basophils % 0.2 Absolute Neutrophils 3.43 Absolute Lymphocytes 0.22 L Absolute Monocytes 0.35 Absolute Eosinophils 0.03 Absolute Basophils 0.01 Sodium 140 Potassium 3.7 Chloride 107 Carbon Dioxide 24.9 Anion Gap 8.1 BUN 12 Creatinine 1.04 Estimated GFR/1.73 m2 >= 60.00 Glucose 196 H Lactate 1.9 H Calcium 7.7 L Total Bilirubin 1.9 H AST 37 ALT 21 Alkaline Phosphatase 179 H Total Protein 6.5 Albumin 2.5 L Urine Color Urine Clarity Urine pH Ur Specific [place] Urine Protein Urine Ketones Urine Blood Urine Nitrite Urine Bilirubin Urine Urobilinogen Ur Leukocyte Esterase Urine RBC Urine WBC Ur Epithelial Cells Urine Crystals Urine Bacteria Urine Casts Urine Mucus Urine Other Ur Culture Indicated? Urine Glucose 04/05/18 09:41 WBC RBC Hgb Hct MCV MCH MCHC RDW Plt Count MPV Immature Gran % Neutrophils % Lymphocytes % Monocytes % Eosinophils % Basophils % Absolute Neutrophils Absolute Lymphocytes Absolute Monocytes Absolute Eosinophils Absolute Basophils Sodium Potassium Chloride Carbon Dioxide Anion Gap BUN Creatinine Estimated GFR/1.73 m2 Glucose Lactate Calcium Total Bilirubin AST ALT Alkaline Phosphatase Total Protein Albumin Urine Color Dark yellow Urine Clarity Sl cloudy Urine pH >= 9.0 H Ur Specific [place] 1.015 Urine Protein 100 H Urine Ketones Trace H Urine Blood Large H Urine Nitrite Negative Urine Bilirubin Small H Urine Urobilinogen >=8.0 Ur Leukocyte Esterase Negative Urine RBC >50 H Urine WBC 3-5 Ur Epithelial Cells Negative Urine Crystals Negative Urine Bacteria Negative Urine Casts Negative Urine Mucus Trace Urine Other Few renal Ur Culture Indicated? No Urine Glucose 100 Last Vital Signs Temp 38.2 C H 04/05/18 16:10 Pulse 91 H 04/05/18 15:35 Resp 20 04/05/18 15:35 BP 130/65 04/05/18 15:35 Pulse Ox 98 04/05/18 15:35
--- NOTE | 2018-04-05 18:32 | HPE_ITS ---
Date of service: 04/05/18 Time of Service: 18:24 Assessment and Plan (1) Fever: Current visit: Yes Status: Acute Etiology unclear. DDx: influenza with a false negative rapid flu test vs bacteremia vs other non infectious course. While influenza PCR is pending, will treat empirically with tamiflu. Blood cultures are pending. Treat empirically with vancomycin/zosyn (did have a recent hospitalization for SBO). Gentle IVF. Follow culture data. (2) Generalized weakness: Current visit: Yes Status: Acute Tx fever as above. PT/OT. Resume Parkinson's meds. (3) Diabetes mellitus, insulin dependent (IDDM), controlled: Current visit: Yes Status: Acute Cover with SSI (4) Ambulatory dysfunction: Current visit: Yes Status: Acute PT/OT consutled (5) Parkinsons disease: Current visit: Yes Status: Chronic continue home meds (6) Pancytopenia: Current visit: No Status: Chronic chronic/at baseline. Monitor counts. Avoid chemical and mechanical DVT ppx. (7) Cirrhosis of liver: Current visit: No Status: Chronic Stable. (8) Hematuria: Current visit: No Status: Chronic F/u as outpatient (9) Discharge planning issues: Current visit: Yes Status: Acute Patient had a lengthy discussion with me in regards to his code status - he would like to have everything done if there is hope of returning to his cu rrent quality of life. DNR/DNI in the computer was rescinded. 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 The patient states that last night he felt like he had the flu or a cold coming on - he felt achy, tired, generally weak. He felt subjective fevers and had a headache. Denies sore throat or runny nose and did not have a cough. He stated that when he wanted to go have a BM this morning, he was too weak to get out of bed, so he called for help. He lives at [facility]. Evidently, he could not be gotten up by the staff of the assisted living, so EMS were called. When EMS arrived, the patient stated he vomited once, but he wasn't previously nauseated, denied any abdominal pain or diarrhea. On arrival to ER, the patient was febrile to 38.8 and this was not responding to tylenol. His rapid flu test was negative. Because the patient has a mediport in place, bacteremia was thought to be on the differential, so he was covered with broad spectrum antibiotics and we were asked to admit the patient for further care. Review of Systems Review of Systems 12 systems reviewed. Pertinent positives and negatives are as per HPI. Additionally, the patient states that he has not had any urinary symptoms other than nocturia. [facility] Medical History Esophageal varices (Chronic) Pancytopenia (Chronic) Ventral hernia (Chronic) DM (diabetes mellitus) GERD (gastroesophageal reflux disease) HTN (hypertension) IBS (irritable bowel syndrome) Iron deficiency anemia Liver cirrhosis HANS (obstructive sleep apnea) Parkinson disease Surgical History H/O ventral hernia repair (Chronic) History of Leonid fundoplication (Chronic) History of bowel resection (Chronic) BONE MARROW BIOPSY (11/25/14) Colectomy colonoscopy (11/21/15) Family History Maternal Cousin Colon cancer Maternal Cousin Colon cancer Social History marital status details: Smoking and Tabacco status: Former Tobacco Use alcohol intake: current alcohol intake frequency: other additional social history: drinks < 1/month Meds Home Medications Medication Instructions Recorded Confirmed Type pantoprazole 40 mg PO BID 11/27/12 04/05/18 History carvedilol 3.125 mg PO BID 05/30/13 04/05/18 History melatonin 5 mg PO HS 08/27/17 04/05/18 History Novolog Flexpen U-100 Insulin 0 units SUB-Q AC 04/05/18 04/05/18 History carbidopa-levodopa 2 tab PO QID 04/05/18 04/05/18 History magnesium oxide 250 mg PO DAILY 04/05/18 04/05/18 History sucralfate [Carafate] 10 ml PO AC & HS 04/05/18 04/05/18 History tramadol 50 mg PO HS PRN PRN 04/05/18 04/05/18 History Allergies Allergy/AdvReac Type Severity Reaction Status Date / Time leuprolide acetate Allergy Severe Swelling/Ed Verified 04/05/18 08:23 [From Lupron] isabelle adhesive Allergy Intermediate Skin Rash Verified 04/05/18 08:23 enalapril [Enalapril] AdvReac Severe Hyperkalemi Verified 04/05/18 08:23 a aspirin AdvReac Intermediate Verified 04/05/18 08:23 esomeprazole magnesium AdvReac Intermediate Diarrhea Verified 04/05/18 08:23 [From Nexium] metformin AdvReac Intermediate Diarrhea Verified 04/05/18 08:23 acetaminophen AdvReac Mild Diarrhea Verified 04/05/18 08:23 Exam Narrative Exam Narrative: General: Very pleasant elderly male, appears weak and ill, sitting up in a chair Neurological: A&Ox3, no focal deficits Psychiatric: appropriate speech pattern/content Skin: intact HEENT: EOMI, dry MM Cardiovascular: RRR, no m/r/g Lungs: Diminished breath sounds B Gastrointestinal: abdomen soft, nontender, nondistended Genitourinary: deferred Extremities: trace edema BLE's - symmetric; no clubbing/cyanosis BLE's Results Imaging Additional studies: CXR: No focal consolidation Labs : 04/05/18 08:35 04/05/18 08:35 Laboratory Results - last 24 hr 04/05/18 04/05/18 04/05/18 08:35 08:35 08:35 WBC 4.06 L RBC 3.36 L Hgb 9.9 L Hct 29.6 L MCV 88.1 MCH 29.5 MCHC 33.4 RDW 16.3 H Plt Count 42 L MPV 11.4 H Immature Gran % 0.7 Neutrophils % 84.4 Lymphocytes % 5.4 Monocytes % 8.6 Eosinophils % 0.7 Basophils % 0.2 Absolute Neutrophils 3.43 Absolute Lymphocytes 0.22 L Absolute Monocytes 0.35 Absolute Eosinophils 0.03 Absolute Basophils 0.01 Sodium 140 Potassium 3.7 Chloride 107 Carbon Dioxide 24.9 Anion Gap 8.1 BUN 12 Creatinine 1.04 Estimated GFR/1.73 m2 >= 60.00 Glucose 196 H Lactate 1.9 H Calcium 7.7 L Total Bilirubin 1.9 H AST 37 ALT 21 Alkaline Phosphatase 179 H Total Protein 6.5 Albumin 2.5 L Urine Color Urine Clarity Urine pH Ur Specific [place] Urine Protein Urine Ketones Urine Blood Urine Nitrite Urine Bilirubin Urine Urobilinogen Ur Leukocyte Esterase Urine RBC Urine WBC Ur Epithelial Cells Urine Crystals Urine Bacteria Urine Casts Urine Mucus Urine Other Ur Culture Indicated? Urine Glucose 04/05/18 09:41 WBC RBC Hgb Hct MCV MCH MCHC RDW Plt Count MPV Immature Gran % Neutrophils % Lymphocytes % Monocytes % Eosinophils % Basophils % Absolute Neutrophils Absolute Lymphocytes Absolute Monocytes Absolute Eosinophils Absolute Basophils Sodium Potassium Chloride Carbon Dioxide Anion Gap BUN Creatinine Estimated GFR/1.73 m2 Glucose Lactate Calcium Total Bilirubin AST ALT Alkaline Phosphatase Total Protein Albumin Urine Color Dark yellow Urine Clarity Sl cloudy Urine pH >= 9.0 H Ur Specific [place] 1.015 Urine Protein 100 H Urine Ketones Trace H Urine Blood Large H Urine Nitrite Negative Urine Bilirubin Small H Urine Urobilinogen >=8.0 Ur Leukocyte Esterase Negative Urine RBC >50 H Urine WBC 3-5 Ur Epithelial Cells Negative Urine Crystals Negative Urine Bacteria Negative Urine Casts Negative Urine Mucus Trace Urine Other Few renal Ur Culture Indicated? No Urine Glucose 100 Last Vital Signs Temp 38.2 C H 04/05/18 16:10 Pulse 91 H 04/05/18 15:35 Resp 20 04/05/18 15:35 BP 130/65 04/05/18 15:35 Pulse Ox 98 04/05/18 15:35
[2018-04-05] MEDS: guaiFENesin 600 MG TABCR PO (20:21)
[2018-04-05] MEDS: Oseltamivir 75 MG CAP PO (20:21)
[2018-04-05] MEDS: Benzonatate 100 MG CAP PO (20:21)
[2018-04-05] MEDS: Pantoprazole 40 MG TABCR PO (20:21)
[2018-04-05] MEDS: Carvedilol 3.125 MG TAB PO (20:21)
[2018-04-05] MEDS: Sucralfate 1 GM TAB PO (21:26)
[2018-04-05] MEDS: Melatonin 3 MG TAB 6 MG PO (21:26)
[2018-04-06] VITALS (10 sets, daily range): BP systolic 121–151; BP diastolic 66–75; PULSE 69–78; RESP 1–20; TEMP 36.3–38.2; O2SAT 93–97
[2018-04-06] MEDS: PIPERACILLIN/TAZO 4.5 GM in Normal Saline 100 ML IVPB ×4 (01:11→23:27)
[2018-04-06] MEDS: traMADol 50 MG TAB PO (03:30)
[2018-04-06] MEDS: Albuterol/Ipratropium 3 ML UPD VIAL UPD ×4 (05:44→23:28)
[2018-04-06 07:11] LABS: Abs Immature Grans 0.01 k/cumm (0.0-0.09); Absolute Eosinophil Count 0.02 k/cumm (0.0-0.7); Absolute Monocyte Count 0.24 k/cumm (0.11-0.7); Absolute Neutrophil Count 1.75 k/cumm (1.2-6.7); Eosinophils % 0.9; HCT 27.3 % (40.0-50.0); HGB 8.9 g/dL (13.5-17.5); Immature Grans % 0.5; Mean Corp. HGB Concentration 32.6 g/dL (32.0-36.0); Mean Corpuscular Hemoglobin 29.1 pg (27.0-33.0); Mean Corpuscular Volume 89.2 fL (80-95); Mean Platelet Volume 11.8 fL (8.0-11.0); Monocytes % 10.8; Neutrophils % 78.8; RBC 3.06 m/cumm (4.50-6.00); RBC Distribution Width 16.2 % (11.8-14.1); White Blood Cell Count 2.22 k/cumm (4.4-10.8)
[2018-04-06 07:24] LABS: Anion Gap 7.4 mmol/L (3-11); BUN 12 mg/dL (7-18); CO2 23.6 mmol/L (21.0-32.0); CREATININE 0.99 mg/dL (0.70-1.30); Calcium 7.6 mg/dL (8.5-10.1); Chloride 107 mmol/L (98-107); Glucose 136 mg/dL (70-100); Magnesium 1.5 mg/dL (1.8-2.4); Potassium 3.7 mmol/L (3.5-5.1); Sodium 138 mmol/L (136-145)
[2018-04-06 07:39] LABS: Platelet Count 38 x1000/uL (130-400)
[2018-04-06 07:40] LABS: Diff Comment PLT Morph Reviewed
[2018-04-06 07:41] LABS: Anisocytosis 2+; Ovalocytes 2+
[2018-04-06] MEDS: guaiFENesin 600 MG TABCR PO ×2 (08:58→20:14)
[2018-04-06] MEDS: Magnesium Oxide 400 MG TAB PO (08:58)
[2018-04-06] MEDS: Oseltamivir 75 MG CAP PO (08:58)
[2018-04-06] MEDS: Pantoprazole 40 MG TABCR PO ×2 (08:58→20:14)
[2018-04-06] MEDS: Benzonatate 100 MG CAP PO ×3 (08:59→20:14)
[2018-04-06] MEDS: Carvedilol 3.125 MG TAB PO ×2 (08:59→20:14)
[2018-04-06] MEDS: Sucralfate 1 GM TAB PO ×4 (08:59→22:00)
[2018-04-06] MEDS: Normal Saline Flush 10 ML SYR IVP (09:00)
--- NOTE | 2018-04-06 10:36 | PT.INIE ---
Date of service: 04/06/18 Time of Service: 09:45 PT Notes Inpatient Physical Therapy Evaluation Date: 04/06/18 Referring Doctor: Dr. Treva Huff PT Orders: PT CONSULT: eval and treat Precautions: Fall, contact Patient Profile/Admitting Diagnosis: Patient admitted April 05 with complaints of fever and weakness. He was found to have influenza, and was subsequently admitted. PMHX: Parkinson's disease; DM; pancytopenia; liver cirrhosis; MGUS; GERD; hypertension Social History/Home Situation: Patient lives at the [facility] in an elevator accessible apartment. He has multiple assistive devices, stating that he typically gets around in a power chair. He occasionally uses a manual chair, and perform short distance ambulation with either an FW W or 4 WW. He has historically participated in an outpatient group exercise program, although states that he has not been in a few weeks. Current Functional Limitations: Patient reports significant weakness Equipment Owned/DME: Power chair, manual chair, FW W, 4 WW, handicap accessible apartment with elevator Subjective: Drake states that he awoke yesterday with significant weakness. He was unable to get out of bed, and EMS was alerted. He was found to be flu positive in the emergency department, and was subsequently admitted to acute care. He states that he is feeling as though he is getting some of his strength back, and was able to get up and sit in the chair for a bit this morning. Drake admits to a history of falls, with his most recent occurring a few weeks ago after attempting to ambulate without an assistive device. Objective: General Observation: Resting in bed with IV to left chest PICC line Mental Status: A and O x3 Pain: Denies ROM: Right Upper Extremity: WFL Left Upper Extremity: WFL Right Lower Extremity: WFL Left Lower Extremity: WFL Strength: Right Upper Extremity: Shoulder flexion 4+/5. Biceps 4+/5. Triceps 4+/5. Dance Studio Manager is strong and equal. Left Upper Extremity: Shoulder flexion 4+/5. Biceps 4+/5. Triceps 4+/5. Dance Studio Manager is strong and equal. Right Lower Extremity: Hip flexion 4+/5. Quads 4/5. Hamstrings 4/5. Ankle dorsiflexion 5/5. Left Lower Extremity: Hip flexion 4+/5. Quads 4/5. Hamstrings 4/5. Ankle dorsiflexion 5/5. Sensation: Patient lacks sensation to light touch through the plantar aspect of both feet Bed Mobility/Transfers: Supine to sit: Supervision Sit to supine: Supervision Sit to stand: Supervision Stand to sit: Supervision Bed to chair: CG, FW W Gait: Patient ambulates 20 feet with FW W, contact-guard. He demonstrates poor safety awareness with turning, requiring cueing for equipment management. Balance: Static Sitting: Normal Dynamic Sitting: Good Static Standing: Fair Dynamic Standing: Fair Patient has a positive Romberg test. Attempted small base of support standing with eyes open, with patient requiring min assist to maintain. Special Tests: Mobility Limitations Standardized Measure [facility] AM-PAC 6 clicks Basic Mobility Inpatient Short Form: Raw Score: 20 CMS Score: 36% deficit Informed Consent/Education: Patient instructed in purpose of PT consult and plan of care. Treatment: Today's session consisted of evaluation, followed by instruction in a therapeutic exercise program, which he can complete independently between PT sessions. Assessment: Patient is a 78 year old male referred to physical therapy services with the diagnosis of influenza. Patient presents with clinical signs and symptoms consistent with diagnosis, with associated mobility deficits. He currently demonstrates the following impairment level findings: 1. Decreased activity tolerance 2. Decreased safety awareness 3. Decreased balance 4. History of falls Impairments are contributing to the following functional limitations: 1. Increased fall risk 2. Gait impairments 3. Unable to tolerate community distance ambulation Patient is assessed as Moderate 30190 complexity based on the following: History: 78-year-old male with extensive medical history, admitted due to influenza. He has baseline mobility issues, in addition to history of falls and multiple comorbidities including diabetes with peripheral neuropathy and Parkinson's disease. Examination: Functional limitations as noted above Presentation: Evolving due to acute medical status Decision Making: Moderate complexity Goals: Goals X1 week 1. Supine-Sit: Supervision 2. Sit-Supine: Supervision 3. Sit-Stand : Supervision 4. Stand-Sit : Supervision 5. Bed-Chair: Supervision with FW W 6. Chair-Bed : Supervision with FW W 7. Gait : Supervision with FW W times 50 feet Plan of Care/Treatment Plan: 1-2x/day, 7 days/week x 1 week. Plan of care has been reviewed with the VIDEO JOURNALIST providing the service under Physical Therapy direction. Initiate Physical Therapy intervention for strengthening, bed mobility, transfers, gait, stairs, balance training, use of assistive device. DISCHARGE RECOMMENDATIONS: Anticipate the patient will be able to return to his apartment at the [facility] without equipment needs. Will recommend return to his group exercise program, which he has completed for some time. TREATMENT CODE/TIME: 945?1010 ([id number]) María Elena Patel, PT, DPT [facility]
--- NOTE | 2018-04-06 10:50 | IN_ITS ---
Date of service: 04/06/18 Time of Service: 09:45 PT Notes Inpatient Physical Therapy Evaluation Date: 04/06/18 Referring Doctor: Dr. Treva Huff PT Orders: PT CONSULT: eval and treat Precautions: Fall, contact Patient Profile/Admitting Diagnosis: Patient admitted April 05 with complaints of fever and weakness. He was found to have influenza, and was subsequently admitted. PMHX: Parkinson's disease; DM; pancytopenia; liver cirrhosis; MGUS; GERD; hypertension Social History/Home Situation: Patient lives at the [facility] in an elevator accessible apartment. He has multiple assistive devices, stating that he typically gets around in a power chair. He occasionally uses a manual chair, and perform short distance ambulation with either an FW W or 4 WW. He has historically participated in an outpatient group exercise program, although states that he has not been in a few weeks. Current Functional Limitations: Patient reports significant weakness Equipment Owned/DME: Power chair, manual chair, FW W, 4 WW, handicap accessible apartment with elevator Subjective: Drake states that he awoke yesterday with significant weakness. He was unable to get out of bed, and EMS was alerted. He was found to be flu positive in the emergency department, and was subsequently admitted to acute care. He states that he is feeling as though he is getting some of his strength back, and was able to get up and sit in the chair for a bit this morning. Drake admits to a history of falls, with his most recent occurring a few weeks ago after attempting to ambulate without an assistive device. Objective: General Observation: Resting in bed with IV to left chest PICC line Mental Status: A and O x3 Pain: Denies ROM: Right Upper Extremity: WFL Left Upper Extremity: WFL Right Lower Extremity: WFL Left Lower Extremity: WFL Strength: Right Upper Extremity: Shoulder flexion 4+/5. Biceps 4+/5. Triceps 4+/5. Correctional Counselor/Case Manager is strong and equal. Left Upper Extremity: Shoulder flexion 4+/5. Biceps 4+/5. Triceps 4+/5. Correctional Counselor/Case Manager is strong and equal. Right Lower Extremity: Hip flexion 4+/5. Quads 4/5. Hamstrings 4/5. Ankle dorsiflexion 5/5. Left Lower Extremity: Hip flexion 4+/5. Quads 4/5. Hamstrings 4/5. Ankle dorsiflexion 5/5. Sensation: Patient lacks sensation to light touch through the plantar aspect of both feet Bed Mobility/Transfers: Supine to sit: Supervision Sit to supine: Supervision Sit to stand: Supervision Stand to sit: Supervision Bed to chair: CG, FW W Gait: Patient ambulates 20 feet with FW W, contact-guard. He demonstrates poor safety awareness with turning, requiring cueing for equipment management. Balance: Static Sitting: Normal Dynamic Sitting: Good Static Standing: Fair Dynamic Standing: Fair Patient has a positive Romberg test. Attempted small base of support standing with eyes open, with patient requiring min assist to maintain. Special Tests: Mobility Limitations Standardized Measure [facility] AM-PAC 6 clicks Basic Mobility Inpatient Short Form: Raw Score: 20 CMS Score: 36% deficit Informed Consent/Education: Patient instructed in purpose of PT consult and plan of care. Treatment: Today's session consisted of evaluation, followed by instruction in a therapeutic exercise program, which he can complete independently between PT sessions. Assessment: Patient is a 78 year old male referred to physical therapy services with the diagnosis of influenza. Patient presents with clinical signs and symptoms consistent with diagnosis, with associated mobility deficits. He currently demonstrates the following impairment level findings: 1. Decreased activity tolerance 2. Decreased safety awareness 3. Decreased balance 4. History of falls Impairments are contributing to the following functional limitations: 1. Increased fall risk 2. Gait impairments 3. Unable to tolerate community distance ambulation Patient is assessed as Moderate 82111 complexity based on the following: History: 78-year-old male with extensive medical history, admitted due to influenza. He has baseline mobility issues, in addition to history of falls and multiple comorbidities including diabetes with peripheral neuropathy and Parkinson's disease. Examination: Functional limitations as noted above Presentation: Evolving due to acute medical status Decision Making: Moderate complexity Goals: Goals X1 week 1. Supine-Sit: Supervision 2. Sit-Supine: Supervision 3. Sit-Stand : Supervision 4. Stand-Sit : Supervision 5. Bed-Chair: Supervision with FW W 6. Chair-Bed : Supervision with FW W 7. Gait : Supervision with FW W times 50 feet Plan of Care/Treatment Plan: 1-2x/day, 7 days/week x 1 week. Plan of care has been reviewed with the CLARITY DEVELOPER providing the service under Physical Therapy direction. Initiate Physical Therapy intervention for strengthening, bed mobility, transfers, gait, stairs, balance training, use of assistive device. DISCHARGE RECOMMENDATIONS: Anticipate the patient will be able to return to his apartment at the [facility] without equipment needs. Will recommend return to his group exercise program, which he has completed for some time. TREATMENT CODE/TIME: 945?1010 ([id number]) María Elena Patel, PT, DPT [facility]
--- NOTE | 2018-04-06 11:18 | PHARADMIT ---
Addendum entered by Emilia Neri 04/13/18 17:07: Pharmacy Note Subjective Objective bp-151/75 WBC-1.80(up) ANC-1.16(up) Assessment day 6 of 7 of abx therapy ceftriaxone (day 5) continues additional PO mag replacement given today Plan When ready, will return to [facility] Original Note: Addendum entered by Nancy Maharaj 04/09/18 15:47: Pharmacy Note Subjective ANC improved, may be able to lift precautions Objective VS ok, Fever yesterday 38.0, Afebrile today, WBC 1.79, ANC 1.20 K+ 4.2, Mag 1.6, Plt up 61 Micro blood: ?gram positive Staph but no Aureus, possible contaminant from 04/07 sample Mirco blood: repeat 04/08/18 and catheter tip 04/07/18 no growth at this time Assessment Mag replaced 2gram IV x1 Cefepime & Vanco dc'd...changed to Rocephin 2gram IV daily per blood cultures Plan When ready, will return to [facility] Original Note: Admission Pharmacy Clinical Review sepsis due to suspected CAP Code Status Full Code Current Weight 97.522 kg Renally Cleared and Narrow Therapeutic Index Meds Crcl ~71.8 mL/min using adjusted body weight QTc Value / Action Taken n/a BP Control, Fever BP 121/68 Tmax 38.8 yesterday Electrolytes reviewed mag 1.5 DVT Prophylaxis none- contraindicated due to thrombocytopenia Opiate Usage / Scheduled Bowel Regimen Ordered prn/prn Plt/SCr for Heparin / Enoxaparin plt 38 SCr 0.99 INR for Warfarin n/a H/H stable, WBC/Bands h/h 8.9/27.3 WBC 2.22 Antibiotic appropriateness vanco and zosyn (day 2 starts this afternoon) Cultures and Sensitivities one blood culture grew group B strep, one has no growth @ 23 hours, and 2 are pending rapid flu negative, waiting for PCR has Surgical ABX d/c within 24 hr n/a DM control / Insulin Dosing BG 136 sliding scale aspart ordered Heart Failure (Check EF%) (NUBIA's, B-Block, Diuretics) carvedilol, IV to PO Switch n/a Home Meds Reviewed yes, I verified with the pt's pharmacy that he does take carbidopa levodopa ER four times a day Home Meds Not Ordered all ordered Comments -waiting for flu PCR, has oseltamivir ordered -nursing called to note an issue with overlapping times of antibiotics as the pt only has one line and the compatibility of vanco and zosyn is variable (zosyn dosing currently over 4 hours), will mention this to
--- NOTE | 2018-04-06 11:57 | SCONE_ITS ---
Assessment and Plan (1) Central line-associated bloodstream infection: Current visit: Yes Status: Acute Possible strep infection of port. port has been in for long standing duration w/ out complications. Pt doing well today and does not appear to be septic. Pt has poor IV access and pancytopenia requiring IV Iron and pt has frequent hosp visits. -Pt would require Port removal in OR b/c of low plt. -Pt would require PICC line for IV therapy until infection is cleared (7-21 days. per hosp) and than re- place Port at later time if so desired for IV access. complications of surgery would include: anethesia, bleeding concerns/hematoma, wound infections/wound non healing. would require replacement at future date. History of Present Illness Chief Complaint: dsffever/weakness Narrative: per hosp: DDx: influenza with a false negative rapid flu test vs bacteremia vs other noninfectious course. While influenza PCR is pending, will treat empirically with tamiflu. Blood cultures are pending. Treat empirically with vancomycin/zosyn (did have a recent hospitalization for SBO). pt came into hosp w/ fever/weakness. pt grew out : RUN DATE: 04/06/18 [facility] [address] RUN TIME: [id number] RUN USER: [place] [address] OMAR REESE MD PATIENT REPORT PATIENT: KAUR LORENZANA LOC: U #: [id number] /SX: 1940 M [place] [facility] [place]05[place]: ESHA JOSEPH,ISAAC Johns STATUS: ADM IN BED: A DIS: SPEC #: [id number] JEFFREY: 04/05/18 STATUS: RES REQ #: [id number] RECD: 04/05/18-[address]: LUZ MARINA JOSEPH,SHRUTHI ROSE MARY: - OTHR DR: JOB COLON MD FAX #: SOURCE:Blood SPECIMEN DESCRIPTION: Procedure Result Verified Blood Culture ( Age => 12 Yrs) Preliminary 04/06/18-85304/05/18 Anaerobic bottle positive; gram stain shows Gram Positive cocci in pairs and chains. Gram stain results called to and read back from Kel LIMON at 5329 by LAB.LAMD 04/06/18 STREPTOCOCCUS AGALACTIAE(GP B) ISOLATED FROM ANAEROIC BOTTLE; Reported results to and read back from MICHELLE COVARRUBIAS RN ON MS 04/06/18 at 0852 by LAB.CAMS Organism 1 STREPTOCOCCUS AGALACTIAE(GP B) notes from ED: 8:40 --78-year-old male with diabetes, Parkinson's, here generally not feeling well, fever, vomiting and cough. Abdominal exam benign. SIRS criteria met. Concern for influenza. Will check rapid influenza testing. Consider pneumonia and sepsis. Patient is tachycardic and febrile. We will give Tylenol rectally. We will give IV fluid bolus. Check lactate and blood cultures. 10:15 --unclear source at this point. Flu negative. Chest x-ray interpreted by radiology: No focal consolidation. Urinalysis reviewed and not consistent with UTI. Given cough and respiratory symptoms. I will cover for pneumonia with ceftriaxone. Plan to admit. -- Patient reassessed and stable. 11:05 -- Spoke with Dr. Huff who will admit. Care transitioned to Dr. Huff. Consider port as source - one culture has been drawn from port and one from peripheral. Not clear which set of cultures is from port and which from periph. site. One is neg and one strep. pt has hx of pancytopenia- etiology is unclear. 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 None currently. pt also has prostate cancer- not on chemo. pt does periodically receive IV iron. No recent hx of PLT transfusions. pt arms are quite echymotic. pt states when he does cut himself- he has no problems w/ coagulation. Consults Consult date: 04/06/18 Review of Systems Review of Systems All systems reviewed & are unremarkable except as noted in HPI and below Constitutional Reports chills Cardiovascular Comments: no chest, or SOB. no productive cough at thsi time Gastrointestinal Comments: abdom soft and non tender. no diarrhea or bleeding. hx of SBO Integumentary/Breasts Comments: no open sores or breakdown. mult areas of echymosis. Port site is in L subclavian. site is c/d/i. pt says the port has been in for 10 yrs. he has not had any infections or clotting. it is currently running. was placed for poor access [facility] Medical History Esophageal varices (Chronic) Pancytopenia (Chronic) Ventral hernia (Chronic) DM (diabetes mellitus) GERD (gastroesophageal reflux disease) HTN (hypertension) IBS (irritable bowel syndrome) Iron deficiency anemia Liver cirrhosis HANS (obstructive sleep apnea) Parkinson disease Surgical History H/O ventral hernia repair (Chronic) History of Leonid fundoplication (Chronic) History of bowel resection (Chronic) BONE MARROW BIOPSY (11/25/14) Colectomy colonoscopy (11/21/15) Family History Maternal Cousin Colon cancer Maternal Cousin Colon cancer Social History marital status details: Smoking and Tabacco status: Former Tobacco Use alcohol intake: current alcohol intake frequency: other additional social history: drinks < 1/month Exam Const General: cooperative and no acute distress Orientation: oriented x3 Eyes Pupils: PERRL Other: sclera clear adn no jaundice Chest Chest: normal inspection of the chest Resp Effort & Inspection: normal respiratory effort Auscultation: clear to auscultation bilaterally GI Palpation: soft Auscultation: normal bowel sounds Other: no pain. post sx changes noted Skin Other: mult areas of echymosis. no open lesions. port site is c/d/i and functional no rednesss/drainage/swelling. non tender Results Last Vital Signs Temp 37.7 C H 04/06/18 07:50 Pulse 69 04/06/18 07:50 Resp 18 04/06/18 07:50 BP 121/68 04/06/18 07:50 Pulse Ox 94 L 04/06/18 07:50 Labs : 04/06/18 06:50 04/06/18 06:50 Laboratory Results - last 24 hr 04/06/18 04/06/18 06:50 06:50 WBC 2.22 L D RBC 3.06 L Hgb 8.9 L Hct 27.3 L MCV 89.2 MCH 29.1 MCHC 32.6 RDW 16.2 H Plt Count 38 L MPV 11.8 H Immature Gran % 0.5 Neutrophils % 78.8 Lymphocytes % 9.0 Monocytes % 10.8 Eosinophils % 0.9 Basophils % 0.0 Absolute Neutrophils 1.75 Absolute Lymphocytes 0.20 L Absolute Monocytes 0.24 Absolute Eosinophils 0.02 Absolute Basophils 0.00 Differential Comment Plt morph reviewed RBC Morphology See below Anisocytosis 2+ Ovalocytes 2+ Sodium 138 Potassium 3.7 Chloride 107 Carbon Dioxide 23.6 Anion Gap 7.4 BUN 12 Creatinine 0.99 Estimated GFR/1.73 m2 >= 60.00 Glucose 136 H Calcium 7.6 L Magnesium 1.5 L
[2018-04-06] MEDS: Insulin Aspart 300 UNITS/3 ML PEN SC ×2 (12:25→21:58)
--- NOTE | 2018-04-06 12:39 | OT.INIE ---
Occupational Therapy Notes Inpatient Occupational Therapy Evaluation Date: 04/06/18 Referring Doctor:Treva Huff MD OT Orders: Eval and treat Precautions: Fall, Contact PATIENT PROFILE/ADMITTING DIAGNOSIS: Pt is a 78 year old male who was admitted to [facility] for complaints of fever and weakness. He was tested to have influenza, and admitted. Past Medical History: Parkinson's disease; DM; pancytopenia; liver cirrhosis; MGUS; GERD; hypertension Social History/Home Situation: Pt lives at the [facility] in an apartment. He reports that there is an elevator on site to get to his apartment. He reports that prior to admission he was (I) in all ADLs/IADLs. He uses a mobilized chair to get around for functional mobility and utilizes [facility] services. Equipment owned/DME: Power chair, manual chair, FW W, 4 WW, handicap accessible apartment with elevator SUBJECTIVE: Drake reports that he was unable to get up the other morning and they called the fire department who then called the ambulance to transport him to [facility]. He reports that he feels that he is getting better at this time and is agreeable to OT consult. OBJECTIVE: General Observation: PICC line (L) chest Mental Status: A&Ox3 Pain: no c/o pain. ROM: RUE AROM WNL L UE AROM WNL STRENGTH: RUE 4/5 throughout textile technical officer is strong and equal LUE 4/5 throughout textile technical officer is strong and equal FUNCTIONAL MOBILITY/ADLS: BATHING Sitting on side of the bed Bathing UE (I) Bathing LE (I) with min vc, max (A) back DRESSING sitting on side of the bed, Dressing UE (I) don and doff [facility] gown Dressing LE (I) don and doff (B) socks. BALANCE: Static sitting Normal Dynamic Sitting Normal SPECIAL TESTS: Daily Activity Limitations Standardized Measure [facility] AM -PAC ?6 clicks? Daily Activity Inpatient Short Form: Raw score: 21 CMS score: 32.79% INFORMED CONSENT/EDUCATION: Pt instructed in purpose of OT Consult and plan of care. ASSESSMENT: Patient is a 78-year-old male referred to occupational therapy services with diagnosis of complaints of fever and weakness. He was tested to have influenza, and admitted. Patient presents with clinical signs and symptoms consistent with dx, as demonstrated by the following impairment level findings: Decreased functional activity tolerance, decreased functional mobility, decreased standing tolerance for ADLs. Impairments are contributing to the following functional limitations: Decreased functional activity tolerance, decreased (I) in ADL/IADL routines. AMPAC score 21, CMS score 32.79% Patient is assessed as a Moderate 29827 complexity based on the following: History: See Above Examination: See Above Presentation: Evolving Decision Making: AMPAC score 21, CMS score 32.79% GOALS Goals x1 week in hospital setting 1. Transfers (S) FWW 2. Dressing pt will be able to (I) don and doff UE/LE clothing 3. Bathing-Standing at sink pt will be able to (I) perform bathing routine. 4. Toileting- On toilet (I) 5. Eating- (I) PLAN OF CARE/TREATMENT PLAN: 1x/day, 5 days/ week x 1week Initiate Occupational Therapy Services for bathing, dressing, grooming, toileting, eating, transfer training. DISCHARGE RECOMMENDATIONS OT recommends that pt return to apartment at the [facility] when medically cleared per MD. TREATMENT TIME/MINUTES/CODES [id number], 28 minutes, (09:07)(\ [facility]
--- NOTE | 2018-04-06 12:53 | OTIE_ITS ---
Occupational Therapy Notes Inpatient Occupational Therapy Evaluation Date: 04/06/18 Referring Doctor:Treva Huff MD OT Orders: Eval and treat Precautions: Fall, Contact PATIENT PROFILE/ADMITTING DIAGNOSIS: Pt is a 78 year old male who was admitted to [facility] for complaints of fever and weakness. He was tested to have influenza, and admitted. Past Medical History: Parkinson's disease; DM; pancytopenia; liver cirrhosis; MGUS; GERD; hypertension Social History/Home Situation: Pt lives at the [facility] in an apartment. He reports that there is an elevator on site to get to his apartment. He reports that prior to admission he was (I) in all ADLs/IADLs. He uses a mobilized chair to get around for functional mobility and utilizes RCT services. Equipment owned/DME: Power chair, manual chair, FW W, 4 WW, handicap accessible apartment with elevator SUBJECTIVE: Drake reports that he was unable to get up the other morning and they called the fire department who then called the ambulance to transport him to [facility]. He reports that he feels that he is getting better at this time and is agreeable to OT consult. OBJECTIVE: General Observation: PICC line (L) chest Mental Status: A&Ox3 Pain: no c/o pain. ROM: RUE AROM WNL L UE AROM WNL STRENGTH: RUE 4/5 throughout tile mechanic is strong and equal LUE 4/5 throughout tile mechanic is strong and equal FUNCTIONAL MOBILITY/ADLS: BATHING Sitting on side of the bed Bathing UE (I) Bathing LE (I) with min vc, max (A) back DRESSING sitting on side of the bed, Dressing UE (I) don and doff [facility] gown Dressing LE (I) don and doff (B) socks. BALANCE: Static sitting Normal Dynamic Sitting Normal SPECIAL TESTS: Daily Activity Limitations Standardized Measure [facility] AM -PAC ?6 clicks? Daily Activity Inpatient Short Form: Raw score: 21 CMS score: 32.79% INFORMED CONSENT/EDUCATION: Pt instructed in purpose of OT Consult and plan of care. ASSESSMENT: Patient is a 78-year-old male referred to occupational therapy services with diagnosis of complaints of fever and weakness. He was tested to have influenza, and admitted. Patient presents with clinical signs and symptoms consistent with dx, as demonstrated by the following impairment level findings: Decreased functional activity tolerance, decreased functional mobility, decreased standing tolerance for ADLs. Impairments are contributing to the following functional limitations: Decreased functional activity tolerance, decreased (I) in ADL/IADL routines. AMPAC score 21, CMS score 32.79% Patient is assessed as a Moderate 94350 complexity based on the following: History: See Above Examination: See Above Presentation: Evolving Decision Making: AMPAC score 21, CMS score 32.79% GOALS Goals x1 week in hospital setting 1. Transfers (S) FWW 2. Dressing pt will be able to (I) don and doff UE/LE clothing 3. Bathing-Standing at sink pt will be able to (I) perform bathing routine. 4. Toileting- On toilet (I) 5. Eating- (I) PLAN OF CARE/TREATMENT PLAN: 1x/day, 5 days/ week x 1week Initiate Occupational Therapy Services for bathing, dressing, grooming, toileting, eating, transfer training. DISCHARGE RECOMMENDATIONS OT recommends that pt return to apartment at the [facility] when medically cleared per MD. TREATMENT TIME/MINUTES/CODES 65034, 28 minutes, (09:07)(\ [facility]
[2018-04-06 12:57] LABS: INR 1.4 (0.9-1.1); Prothrombin Time 14.4 sec (9.3-11.0)
[2018-04-06] MEDS: MAGNESIUM SULFATE 4 GM/100 ML BAG IVPB (15:19)
--- NOTE | 2018-04-06 15:40 | PT.INTREAT ---
Date of service: 04/06/18 Time of Service: 15:15 PT Notes Inpatient Physical Therapy Treatment Note [facility] Date: 04/06/18 PRECAUTIONS: droplet, fall SUBJECTIVE: Drake states that he is very tired. He states that he hasn't eaten all day in preparation for removal of his port. OBJECTIVE: PAIN: 0/10 GENERAL OBSERVATION: Patient is resting in bed, and remains alert throughout session. He provides a redundant history, and slurs his words throughout session. BED MOBILITY/TRANSFERS Patient demonstrates ability to independently scoot up in bed. We otherwise held transfers due to level of fatigue. GAIT deferrred on ambulation due to level of fatigue THEREX: Patient was instructed in supine exercises as noted in flowsheet. He completes program with need for minimal cues, although demonstrates obvious fatigue, dropping his limbs to the bed after completion of each exercise. He also demonstrates mild RAVI with completion. ASSESSMENT: Extremely fatigued this afternoon. Deferred on transfers and ambulation due to safety concerns with patient's level of fatigue and weakness. PLAN: Resume transfers and ambulation tomorrow, working to progress toward established goals. TREATMENT CODE/TIME: 3:15-3:30 ([id number]) María Elena Patel, PT, DPT
--- NOTE | 2018-04-06 16:15 | DI.RAD_ITS ---
SYMPTOMS/DIAGNOSIS: NEW COUGH, PERSISTENT FEVER CHEST X-RAY, AP PORTABLE: Comparison is 04/05/18. The heart size appears stable. The tip of the Infusaport catheter is stable in position at the junction of the superior vena cava and right atrium. Since the prior examination, there have developed bilateral pulmonary infiltrates. Infiltrates are seen in the lung apices and the left lower lobe. No effusions or pneumothoraces are identified. IMPRESSION: Interval development of bilateral infiltrates. This may represent pneumonia or atelectasis.
--- NOTE | 2018-04-06 16:38 | DI.VRAD_ITS ---
EXAM: XR Chest, 1 View EXAM DATE/TIME: 04/06/2018 4:15 PM CLINICAL HISTORY: 78 years old, male; Signs and symptoms; Cough; Patient HX: New cough, persistent fever TECHNIQUE: XR of the chest, 1 view. COMPARISON: CR XR CHEST 2V PA LATERAL 04/05/2018 9:00 AM FINDINGS: Tubes, catheters and devices: There is a left Mediport catheter. Lungs: Left discoid atelectasis and/or scarring and/or infiltrates. Pleural space: Unremarkable. No pleural effusion. No pneumothorax. Heart/Mediastinum: Unremarkable. No cardiomegaly. Bones/joints: One or more healed right rib fractures. Other findings: Possible bilateral apical bronchopneumonia. IMPRESSION: 1. Left discoid atelectasis and/or scarring and/or infiltrates. 2. Possible bilateral apical bronchopneumonia. Dictated and Authenticated by: Brandon Corbin MD. Ordering:LUIS Tilley MD
--- NOTE | 2018-04-06 16:39 | PDOC.CMIN ---
- If Service Date Differs Date of service: 04/06/18 Time of Service: 16:40 Care Management Initial Assess REASON FOR HOSPITALIZATION:: Pneumonia PAST MEDICAL HISTORY/PAST SURGICAL HISTORY:: Ventral hernia (Acute). DM (diabetes mellitus). GERD (gastroesophageal reflux disease). HTN (hypertension). IBS (irritable bowel syndrome). Iron deficiency anemia. Liver cirrhosis. HANS (obstructive sleep apnea). Parkinson disease. H/O ventral hernia repair (Acute). History of bowel resection (Acute). History of Leonid fundoplication (Chronic). BONE MARROW BIOPSY (11/25/14). Colectomy. colonoscopy (11/21/15) PREVIOUS FUNCTIONAL STATUS/SOCIAL/FAMILY SUPPORTS:: Drake resides alone at [facility]. He was previously a resident at [facility], and states that he has been at the [facility] since September. Drake's Gregoria remains a resident at [facility] and he visits her regularly. Drake states that he is not driving at this time and depends on [facility] for his transportation needs. CURRENT FUNCTIONAL STATUS:: Drake is resting during CM visit. He states he does not have his glasses, dentures of jacket here at [facility]. Drake states he does have friends at [facility] however they dont drive. CM will contact director and determine if there is a person that could bring his belongings. ADVANCE DIRECTIVES:: On file - Annabelle Ren is agent. Nara Manjarrez is alternate Has patient been provided with information about the portal?: Yes Did the patient sign up for the portal?: No CODE STATUS:: Full Code INSURANCE COVERAGE / FINANCIAL ISSUES:: Medicare, Medicaid, [employer], Financial ASST 100 CURRENT HOME/COMMUNITY SERVICES/EQUIPMENT:: Currently Drake receives a hommaker through [facility]. Drake has a CPAP, W/C, Motorized W/C, FWW, raised toilet seat, and shower chair at home. PRIMARY CARE PHYSICIAN:: POTENTIAL DISCHARGE NEEDS:: Schedule follow-up appointment with primary care prior to discharge. PATIENT/FAMILY EDUCATION NEEDS:: Review DC instructions, limitations, ongoing discharge planning, ask me 3 and self-management discussion. ANTICIPATED BARRIERS TO DISCHARGE:: None identified at this time. TRANSPORTATION:: Via [facility] at time of discharge. PLAN:: Drake has positive blood cultures, he is being treated with IV antibiotics anticipate 7 days. Surgical consult to determine if port needs to be removed. Drake will return home to [facility] when ready for discharge. CM to continue to provide support to patient ongoing discharge planning and disposition.
--- NOTE | 2018-04-06 17:15 | INITIAL_ITS ---
- If Service Date Differs Date of service: 04/06/18 Time of Service: 16:40 Care Management Initial Assess REASON FOR HOSPITALIZATION:: Pneumonia PAST MEDICAL HISTORY/PAST SURGICAL HISTORY:: Ventral hernia (Acute). DM (diabetes mellitus). GERD (gastroesophageal reflux disease). HTN (hypertension). IBS (irritable bowel syndrome). Iron deficiency anemia. Liver cirrhosis. HANS (obstructive sleep apnea). Parkinson disease. H/O ventral hernia repair (Acute). History of bowel resection (Acute). History of Leonid fundoplication (Chronic). BONE MARROW BIOPSY (11/25/14). Colectomy. colonoscopy (11/21/15) PREVIOUS FUNCTIONAL STATUS/SOCIAL/FAMILY SUPPORTS:: Drake resides alone at [facility]. He was previously a resident at [facility], and states that he has been at the [facility] since September. Drake's Gregoria remains a resident at [facility] and he visits her regularly. Drake states that he is not driving at this time and depends on [facility] for his transportation needs. CURRENT FUNCTIONAL STATUS:: Drake is resting during CM visit. He states he does not have his glasses, dentures of jacket here at [facility]. Drake states he does have friends at [facility] however they dont drive. CM will contact director and determine if there is a person that could bring his belongings. ADVANCE DIRECTIVES:: On file - Annabelle Ren is agent. Nara Manjarrez is alternate Has patient been provided with information about the portal?: Yes Did the patient sign up for the portal?: No CODE STATUS:: Full Code INSURANCE COVERAGE / FINANCIAL ISSUES:: Medicare, Medicaid, [employer], Financial ASST 100 CURRENT HOME/COMMUNITY SERVICES/EQUIPMENT:: Currently Drake receives a hommaker through [facility]. Drake has a CPAP, W/C, Motorized W/C, FWW, raised toilet seat, and shower chair at home. PRIMARY CARE PHYSICIAN:: POTENTIAL DISCHARGE NEEDS:: Schedule follow-up appointment with primary care prior to discharge. PATIENT/FAMILY EDUCATION NEEDS:: Review DC instructions, limitations, ongoing discharge planning, ask me 3 and self-management discussion. ANTICIPATED BARRIERS TO DISCHARGE:: None identified at this time. TRANSPORTATION:: Via RCT at time of discharge. PLAN:: Drake has positive blood cultures, he is being treated with IV antibiotics anticipate 7 days. Surgical consult to determine if port needs to be removed. Drake will return home to [facility] when ready for discharge. CM to continue to provide support to patient ongoing discharge planning and disposition.
--- NOTE | 2018-04-06 20:06 | W.PM.PROGNOT ---
Date of Service Date of service: 04/06/18 Time of Service: 16:15 Assessment and Plan (1) Streptococcal bacteremia: Current visit: Yes Status: Acute With Juueil-j-[id number] being either the likely source or now seeded. Repeat blood cultures are pending. I feel it is probably safe at this point to discontinue the vancomycin. Continue Zosyn. Obtain echocardiogram, especially considering the presence of murmur. Based on results of the echocardiogram, would consider switching to daily therapy. N.p.o. after midnight for Feuoha-x-Qbyi removal. (2) Fever: Current visit: Yes Status: Acute As above. Ok to d/c tamiflu (3) Generalized weakness: Current visit: Yes Status: Acute Continue Parkinson's medications. PT and OT are consulted. Treat infection as above. (4) Diabetes mellitus, insulin dependent (IDDM), controlled: Current visit: Yes Status: Acute Cover with SSI (5) Ambulatory dysfunction: Current visit: Yes Status: Acute PT/OT consutled (6) Parkinsons disease: Current visit: Yes Status: Chronic continue home meds (7) Pancytopenia: Current visit: No Status: Chronic chronic/at baseline. However, now that she is going for surgery, she could benefit from a transfusion of 1 unit of platelets. This is planned for tomorrow morning. Discussed with blood bank. Avoid chemical and mechanical DVT ppx. (8) Cirrhosis of liver: Current visit: No Status: Chronic Stable. (9) Hematuria: Current visit: No Status: Chronic F/u as outpatient (10) CAP (community acquired pneumonia): Current visit: Yes Status: Acute The findings on chest x-ray is new, though it is likely that the patient had this from the very beginning, and the chest x-ray was not showing it because the patient was dehydrated. Regardless, he is on Zosyn. Consider adding azithromycin if symptoms worsen. IV fluids were discontinued in case there was a component of fluid overload seen. (11) Heart murmur: Current visit: Yes Status: Acute Obtaining echocardiogram. Endocarditis needs to be ruled out. (12) Discharge planning issues: Current visit: Yes Status: Acute Patient had a lengthy discussion with me in regards to his code status - he would like to have everything done if there is hope of returning to his current quality of life. DNR/DNI in the computer was rescinded. (13) DVT prophylaxis: Current visit: Yes Status: Acute Contraindicated due to thrombocytopenia Subjective Interval history since last seen: Mr Ren continues to feel very weak and tired. He denies any dizziness, chest pain, shortness of breath, nausea, vomiting. He reports a new cough today. He has had blood transfusions before, and agrees to have a blood transfusion on this admission if needed. He is to undergo an extraction of his Enyvav-m-Lhfd tomorrow as his blood cultures came back positive for strep agalactiae. Exam Narrative Exam Narrative: General: Very pleasant elderly male, alert and oriented x3, laying comfortably in bed, looks better HEENT: EOMI, dry MM Cardiovascular: RRR, today I hear systolic ejection murmur Lungs: Diminished breath sounds B Gastrointestinal: abdomen soft, nontender, nondistended Genitourinary: deferred Extremities: trace edema BLE's - symmetric; no clubbing/cyanosis BLE's Objective Objective Clinical Data: Abnormal lab results 04/06/18 04/06/18 04/06/18 Range/Units 06:50 06:50 12:20 WBC 2.22 L D (4.4-10.8) k/cumm RBC 3.06 L (4.50-6.00) m/cumm Hgb 8.9 L (13.5-17.5) g/dL Hct 27.3 L (40.0-50.0) % RDW 16.2 H (11.8-14.1) % Plt Count 38 L (130-400) x1000/uL MPV 11.8 H (8.0-11.0) fL Absolute Lymphocytes 0.20 L (1.2-3.4) k/cumm PT 14.4 H (9.3-11.0) sec INR 1.4 H (0.9-1.1) Glucose 136 H (70-100) mg/dL Calcium 7.6 L (8.5-10.1) mg/dL Magnesium 1.5 L (1.8-2.4) mg/dL Vital Signs Temperature 37.3 C 04/06/18 19:59 Temperature Source Tympanic 04/06/18 19:59 Pulse 72 04/06/18 19:59 Pulse Rhythm Regular 04/06/18 16:30 Pulse 91 H 04/05/18 12:10 Respiratory Rate 19 04/06/18 19:59 Respiratory Effort Non-Labored 04/06/18 16:30 Respiratory Depth Shallow 04/06/18 16:30 Respiratory Pattern Irregular 04/06/18 16:30 Blood Pressure 123/67 04/06/18 19:59 Blood Pressure Mean 70 04/05/18 12:08 Blood Pressure Position Supine 04/05/18 08:18 Pulse Oximetry 95 04/06/18 19:59 Oxygen Delivery Method Room Air 04/06/18 19:59 Oxygen Flow Rate 0 04/06/18 19:59 Pain Level 8 04/05/18 12:56 Intake & Output 04/05/18 04/06/18 04/06/18 23:59 11:59 23:59 Intake Total 1216.25 / 1766.25 1337.5 / 1897.5 560.0 / 1897.5 Output Total 550 / 550 550 / 1100 550 / 1100 Balance 666.25 / 1216.25 787.5 / 797.5 10.0 / 797.5 Weight 97.522 kg Intake: IV 856.25 / 1406.25 597.5 / 917.5 320.0 / 917.5 Oral 360 / 360 740 / 980 240 / 980 Output: Urine 550 / 550 550 / 1100 550 / 1100 Other: Urine Color Dark Vi Dark Vi Dark Vi Urine Appearance Clear Clear Voiding Methods Urinal Urinal Urinal Laboratory Results WBC 2.22 k/cumm (4.4-10.8) L D 04/06/18 06:50 RBC 3.06 m/cumm (4.50-6.00) L 04/06/18 06:50 Hgb 8.9 g/dL (13.5-17.5) L 04/06/18 06:50 Hct 27.3 % (40.0-50.0) L 04/06/18 06:50 MCV 89.2 fL (80-95) 04/06/18 06:50 MCH 29.1 pg (27.0-33.0) 04/06/18 06:50 MCHC 32.6 g/dL (32.0-36.0) 04/06/18 06:50 RDW 16.2 % (11.8-14.1) H 04/06/18 06:50 Plt Count 38 x1000/uL (130-400) L 04/06/18 06:50 MPV 11.8 fL (8.0-11.0) H 04/06/18 06:50 Immature Gran % 0.5 04/06/18 06:50 Neutrophils % 78.8 04/06/18 06:50 Lymphocytes % 9.0 04/06/18 06:50 Monocytes % 10.8 04/06/18 06:50 Eosinophils % 0.9 04/06/18 06:50 Basophils % 0.0 04/06/18 06:50 Absolute Neutrophils 1.75 k/cumm (1.2-6.7) 04/06/18 06:50 Absolute Lymphocytes 0.20 k/cumm (1.2-3.4) L 04/06/18 06:50 Absolute Monocytes 0.24 k/cumm (0.11-0.7) 04/06/18 06:50 Absolute Eosinophils 0.02 k/cumm (0.0-0.7) 04/06/18 06:50 Absolute Basophils 0.00 k/cumm (0.0-0.2) 04/06/18 06:50 Differential Comment Plt morph reviewed 04/06/18 06:50 RBC Morphology See below 04/06/18 06:50 Anisocytosis 2+ 04/06/18 06:50 Ovalocytes 2+ 04/06/18 06:50 PT 14.4 sec (9.3-11.0) H 04/06/18 12:20 INR 1.4 (0.9-1.1) H 04/06/18 12:20 Sodium 138 mmol/L (136-145) 04/06/18 06:50 Potassium 3.7 mmol/L (3.5-5.1) 04/06/18 06:50 Chloride 107 mmol/L (98-107) 04/06/18 06:50 Carbon Dioxide 23.6 mmol/L (21.0-32.0) 04/06/18 06:50 Anion Gap 7.4 mmol/L (3-11) 04/06/18 06:50 BUN 12 mg/dL (7-18) 04/06/18 06:50 Creatinine 0.99 mg/dL (0.70-1.30) 04/06/18 06:50 Estimated GFR/1.73 m2 >= 60.00 (mL/min/1.73m2) 04/06/18 06:50 Glucose 136 mg/dL (70-100) H 04/06/18 06:50 Lactate 1.9 mmol/L (0.6-1.4) H 04/05/18 08:35 Calcium 7.6 mg/dL (8.5-10.1) L 04/06/18 06:50 Magnesium 1.5 mg/dL (1.8-2.4) L 04/06/18 06:50 Total Bilirubin 1.9 mg/dL (0.2-1.0) H 04/05/18 08:35 AST 37 U/L (15-37) 04/05/18 08:35 ALT 21 U/L (12-78) 04/05/18 08:35 Alkaline Phosphatase 179 U/L (46-116) H 04/05/18 08:35 Total Protein 6.5 g/dL (6.4-8.2) 04/05/18 08:35 Albumin 2.5 g/dL (3.4-5.0) L 04/05/18 08:35 Urine Color Dark yellow (Yellow) 04/05/18 09:41 Urine Clarity Sl cloudy 04/05/18 09:41 Urine pH >= 9.0 (5-8) H 04/05/18 09:41 Ur Specific [place] 1.015 (1.005-1.025) 04/05/18 09:41 Urine Protein 100 mg/dL (Negative) H 04/05/18 09:41 Urine Ketones Trace mg/dL (Negative) H 04/05/18 09:41 Urine Blood Large (Negative) H 04/05/18 09:41 Urine Nitrite Negative (Negative) 04/05/18 09:41 Urine Bilirubin Small (Negative) H 04/05/18 09:41 Urine Urobilinogen >=8.0 EU/dL (Up TO 0.2) 04/05/18 09:41 Ur Leukocyte Esterase Negative (Negative) 04/05/18 09:41 Urine RBC >50 (0-2) H 04/05/18 09:41 Urine WBC 3-5 HPF (0-5) 04/05/18 09:41 Ur Epithelial Cells Negative HPF (Negative) 04/05/18 09:41 Urine Crystals Negative HPF (Negative) 04/05/18 09:41 Urine Bacteria Negative HPF (Negative) 04/05/18 09:41 Urine Casts Negative LPF (Negative) 04/05/18 09:41 Urine Mucus Trace (Negative) 04/05/18 09:41 Urine Other Few renal (Negative) 04/05/18 09:41 Ur Culture Indicated? No 04/05/18 09:41 Urine Glucose 100 mg/dL (Negative) 04/05/18 09:41 Patient ABO/Rh O Positive 04/06/18 16:50 CXR: 1. Left discoid atelectasis and/or scarring and/or infiltrates. 2. Possible bilateral apical bronchopneumonia.
[2018-04-06] MEDS: Melatonin 3 MG TAB 6 MG PO (22:00)
[2018-04-06] MEDS: Acetaminophen 325 MG TAB PO (23:27)
[2018-04-07] VITALS (13 sets, daily range): BP systolic 137–156; BP diastolic 69–77; PULSE 66–71; RESP 16–19; TEMP 36.2–37.1; O2SAT 94–99
[2018-04-07] MEDS: Albuterol/Ipratropium 3 ML UPD VIAL UPD ×3 (06:30→17:43)
[2018-04-07] MEDS: Pantoprazole 40 MG TABCR PO ×2 (06:30→20:19)
[2018-04-07] MEDS: Sucralfate 1 GM TAB PO ×4 (06:30→21:33)
[2018-04-07] MEDS: Acetaminophen 325 MG TAB 650 MG PO (07:34)
[2018-04-07] MEDS: diphenhydrAMINE 25 MG CAP PO (07:34)
[2018-04-07 07:41] LABS: Abs Immature Grans 0.01 k/cumm (0.0-0.09); Absolute Basophil Count 0.01 k/cumm (0.0-0.2); Absolute Eosinophil Count 0.17 k/cumm (0.0-0.7); Absolute Lymphocyte Count 0.25 k/cumm (1.2-3.4); Absolute Monocyte Count 0.19 k/cumm (0.11-0.7); Absolute Neutrophil Count 0.86 k/cumm (1.2-6.7); Basophils % 0.7; Eosinophils % 11.4; HCT 27.1 % (40.0-50.0); HGB 9.1 g/dL (13.5-17.5); Immature Grans % 0.7; Lymphocytes % 16.8; Mean Corp. HGB Concentration 33.6 g/dL (32.0-36.0); Mean Corpuscular Hemoglobin 29.4 pg (27.0-33.0); Mean Corpuscular Volume 87.4 fL (80-95); Mean Platelet Volume 11.3 fL (8.0-11.0); Monocytes % 12.8; Neutrophils % 57.6; RBC Distribution Width 16.3 % (11.8-14.1)
[2018-04-07 07:42] LABS: INR 1.3 (0.9-1.1); Prothrombin Time 12.8 sec (9.3-11.0)
[2018-04-07 07:53] LABS: Anion Gap 6.1 mmol/L (3-11); BUN 12 mg/dL (7-18); C-Reactive Protein 3.97 mg/dL (0.0-0.3); CO2 25.9 mmol/L (21.0-32.0); CREATININE 0.94 mg/dL (0.70-1.30); Calcium 7.6 mg/dL (8.5-10.1); Chloride 108 mmol/L (98-107); Glucose 126 mg/dL (70-100); Magnesium 2.1 mg/dL (1.8-2.4); Potassium 3.8 mmol/L (3.5-5.1); Sodium 140 mmol/L (136-145)
[2018-04-07 07:56] LABS: Platelet Count 44 x1000/uL (130-400); White Blood Cell Count 1.49 k/cumm (4.4-10.8)
[2018-04-07 07:57] LABS: Anisocytosis 2+; Diff Comment Diff Reviewed; Poikilocytes 2+; Polychromasia Present
--- NOTE | 2018-04-07 08:39 | NUR.NOTE ---
Addendum entered by Maria Dolores Cooper 04/07/18 08:59: PT TOLERATED TRANSFUSION WELL. PORT DEACCESSED Original Note: Nursing Note: PT TO RECEIVE 1 UNIT OF PLATELETS PER ORDERS. CONSENT SIGNED, RED BAND VERIFIED. PORT REMAINS PATENT W/ GOOD BLOOD RETURN
[2018-04-07] MEDS: PIPERACILLIN/TAZO 4.5 GM in Normal Saline 100 ML IVPB (09:27)
[2018-04-07] MEDS: guaiFENesin 600 MG TABCR PO ×2 (09:48→20:19)
[2018-04-07] MEDS: Magnesium Oxide 400 MG TAB PO (09:48)
[2018-04-07] MEDS: Carvedilol 3.125 MG TAB PO ×2 (09:48→20:20)
[2018-04-07] MEDS: Benzonatate 100 MG CAP PO ×3 (09:48→20:21)
--- NOTE | 2018-04-07 09:50 | W.PM.PROGNOT ---
Date of Service Date of service: 04/07/18 Time of Service: 09:52 Assessment and Plan (1) Streptococcal bacteremia: Current visit: Yes Status: Acute Strep bactremia. Unsure if originated from the port. If not- the port is prob seeded at this point. Will remove port. Abx time length per hosp. Has PICC line in place. If requires access in future wouldn't place new port until we have clear repeat blood cultures. risks of removal: bleeding/non healing/anaesthesia/poor IV access. Subjective Patient reports: voiding w/o difficulty Interval history since last seen: pt still running temps over night. pt c/o of being hungry. had plt's this am. areas to have PICC in R anticubital for access Exam Const General: cooperative, healthy appearing and no acute distress Orientation: alert, awake and oriented x3 Eyes Sclera: sclerae normal EOM: EOM intact bilaterally Other: no jaundice Chest Chest: normal inspection of the chest Other: CTA b/l. no R/R/W. no cough Cardio Jugular venous pressure: no JVD Other: no CP or SOB GI Inspection: normal to inspection Other: soft and no pain Skin Other: port in L subclavian region. site well healed. c/d/i. no swelling Objective Objective Clinical Data: Abnormal lab results 04/06/18 04/06/18 04/07/18 Range/Units 12:20 16:50 06:35 WBC (4.4-10.8) k/cumm RBC (4.50-6.00) m/cumm Hgb (13.5-17.5) g/dL Hct (40.0-50.0) % RDW (11.8-14.1) % Plt Count (130-400) x1000/uL MPV (8.0-11.0) fL Absolute Neutrophils (1.2-6.7) k/cumm Absolute Lymphocytes (1.2-3.4) k/cumm PT 14.4 H (9.3-11.0) sec INR 1.4 H (0.9-1.1) Chloride 108 H (98-107) mmol/L Glucose 126 H (70-100) mg/dL Calcium 7.6 L (8.5-10.1) mg/dL C-Reactive Protein 3.97 H (0.0-0.3) mg/dL Crossmatch See Detail 04/07/18 04/07/18 Range/Units 06:35 06:35 WBC 1.49 L* D (4.4-10.8) k/cumm RBC 3.10 L (4.50-6.00) m/cumm Hgb 9.1 L (13.5-17.5) g/dL Hct 27.1 L (40.0-50.0) % RDW 16.3 H (11.8-14.1) % Plt Count 44 L (130-400) x1000/uL MPV 11.3 H (8.0-11.0) fL Absolute Neutrophils 0.86 L (1.2-6.7) k/cumm Absolute Lymphocytes 0.25 L (1.2-3.4) k/cumm PT 12.8 H (9.3-11.0) sec INR 1.3 H (0.9-1.1) Chloride (98-107) mmol/L Glucose (70-100) mg/dL Calcium (8.5-10.1) mg/dL C-Reactive Protein (0.0-0.3) mg/dL Crossmatch Vital Signs Temperature 37.1 C 04/07/18 08:53 Temperature Source Tympanic 04/07/18 07:45 Pulse 71 04/07/18 08:53 Pulse Rhythm Regular 04/06/18 20:18 Pulse 91 H 04/05/18 12:10 Respiratory Rate 18 04/07/18 08:53 Respiratory Effort 04/06/18 20:18 Respiratory Depth Normal 04/06/18 20:18 Respiratory Pattern Normal 04/06/18 20:18 Blood Pressure 146/72 H 04/07/18 08:53 Blood Pressure Mean 70 04/05/18 12:08 Blood Pressure Position Supine 04/05/18 08:18 Pulse Oximetry 99 04/07/18 08:30 Oxygen Delivery Method Room Air 04/07/18 08:53 Oxygen Flow Rate 0 04/07/18 08:53 Pain Level 8 04/05/18 12:56 Intake & Output 04/06/18 04/06/18 04/07/18 11:59 23:59 11:59 Intake Total 1337.5 / 1996.5 660.0 / 1997.5 453 / 453 Output Total 550 / 1600 1050 / 1600 1525 / 1525 Balance 787.5 / 397.5 -390.0 / 397.5 -1072 / -1072 Weight 97.6 kg Intake: IV 597.5 / 1017.5 420.0 / 1017.5 100 / 100 Oral 740 / 980 240 / 980 Blood Product 353 / 353 Pheresis Platelets Unit / 353 [id number] Output: Urine 550 / 1600 1050 / 1600 1525 / 1525 Other: Urine Color Dark Vi Dark Vi Straw Urine Appearance Clear Clear Clear Stool Size Small Stool Characteristics Soft Voiding Methods Urinal Urinal Urinal Laboratory Results WBC 1.49 k/cumm (4.4-10.8) L* D 04/07/18 06:35 RBC 3.10 m/cumm (4.50-6.00) L 04/07/18 06:35 Hgb 9.1 g/dL (13.5-17.5) L 04/07/18 06:35 Hct 27.1 % (40.0-50.0) L 04/07/18 06:35 MCV 87.4 fL (80-95) 04/07/18 06:35 MCH 29.4 pg (27.0-33.0) 04/07/18 06:35 MCHC 33.6 g/dL (32.0-36.0) 04/07/18 06:35 RDW 16.3 % (11.8-14.1) H 04/07/18 06:35 Plt Count 44 x1000/uL (130-400) L 04/07/18 06:35 MPV 11.3 fL (8.0-11.0) H 04/07/18 06:35 Immature Gran % 0.7 04/07/18 06:35 Neutrophils % 57.6 04/07/18 06:35 Lymphocytes % 16.8 04/07/18 06:35 Monocytes % 12.8 04/07/18 06:35 Eosinophils % 11.4 04/07/18 06:35 Basophils % 0.7 04/07/18 06:35 Absolute Neutrophils 0.86 k/cumm (1.2-6.7) L 04/07/18 06:35 Absolute Lymphocytes 0.25 k/cumm (1.2-3.4) L 04/07/18 06:35 Absolute Monocytes 0.19 k/cumm (0.11-0.7) 04/07/18 06:35 Absolute Eosinophils 0.17 k/cumm (0.0-0.7) 04/07/18 06:35 Absolute Basophils 0.01 k/cumm (0.0-0.2) 04/07/18 06:35 Differential Comment Diff reviewed 04/07/18 06:35 RBC Morphology See below 04/07/18 06:35 Polychromasia Present 04/07/18 06:35 Poikilocytosis 2+ 04/07/18 06:35 Anisocytosis 2+ 04/07/18 06:35 Ovalocytes 2+ 04/06/18 06:50 PT 12.8 sec (9.3-11.0) H 04/07/18 06:35 INR 1.3 (0.9-1.1) H 04/07/18 06:35 Sodium 140 mmol/L (136-145) 04/07/18 06:35 Potassium 3.8 mmol/L (3.5-5.1) 04/07/18 06:35 Chloride 108 mmol/L (98-107) H 04/07/18 06:35 Carbon Dioxide 25.9 mmol/L (21.0-32.0) 04/07/18 06:35 Anion Gap 6.1 mmol/L (3-11) 04/07/18 06:35 BUN 12 mg/dL (7-18) 04/07/18 06:35 Creatinine 0.94 mg/dL (0.70-1.30) 04/07/18 06:35 Estimated GFR/1.73 m2 >= 60.00 (mL/min/1.73m2) 04/07/18 06:35 Glucose 126 mg/dL (70-100) H 04/07/18 06:35 Lactate 1.9 mmol/L (0.6-1.4) H 04/05/18 08:35 Calcium 7.6 mg/dL (8.5-10.1) L 04/07/18 06:35 Magnesium 2.1 mg/dL (1.8-2.4) 04/07/18 06:35 Total Bilirubin 1.9 mg/dL (0.2-1.0) H 04/05/18 08:35 AST 37 U/L (15-37) 04/05/18 08:35 ALT 21 U/L (12-78) 04/05/18 08:35 Alkaline Phosphatase 179 U/L (46-116) H 04/05/18 08:35 C-Reactive Protein 3.97 mg/dL (0.0-0.3) H 04/07/18 06:35 Total Protein 6.5 g/dL (6.4-8.2) 04/05/18 08:35 Albumin 2.5 g/dL (3.4-5.0) L 04/05/18 08:35 Urine Color Dark yellow (Yellow) 04/05/18 09:41 Urine Clarity Sl cloudy 04/05/18 09:41 Urine pH >= 9.0 (5-8) H 04/05/18 09:41 Ur Specific [place] 1.015 (1.005-1.025) 04/05/18 09:41 Urine Protein 100 mg/dL (Negative) H 04/05/18 09:41 Urine Ketones Trace mg/dL (Negative) H 04/05/18 09:41 Urine Blood Large (Negative) H 04/05/18 09:41 Urine Nitrite Negative (Negative) 04/05/18 09:41 Urine Bilirubin Small (Negative) H 04/05/18 09:41 Urine Urobilinogen >=8.0 EU/dL (Up TO 0.2) 04/05/18 09:41 Ur Leukocyte Esterase Negative (Negative) 04/05/18 09:41 Urine RBC >50 (0-2) H 04/05/18 09:41 Urine WBC 3-5 HPF (0-5) 04/05/18 09:41 Ur Epithelial Cells Negative HPF (Negative) 04/05/18 09:41 Urine Crystals Negative HPF (Negative) 04/05/18 09:41 Urine Bacteria Negative HPF (Negative) 04/05/18 09:41 Urine Casts Negative LPF (Negative) 04/05/18 09:41 Urine Mucus Trace (Negative) 04/05/18 09:41 Urine Other Few renal (Negative) 04/05/18 09:41 Ur Culture Indicated? No 04/05/18 09:41 Urine Glucose 100 mg/dL (Negative) 04/05/18 09:41 Patient ABO/Rh O Positive 02/18/19 16:50 Antibody Screen Positive 04/06/18 16:50 Antibody Identification Anti-E 04/06/18 16:50 Crossmatch See Detail 04/06/18 16:50
--- NOTE | 2018-04-07 09:59 | OT.INTREAT ---
Date of service: 04/07/18 Time of Service: 07:40 Occupational Therapy Notes Occupational Therapy Inpatient Treatment Note Date: 04/07/17 PRECAUTIONS: Fall, Contact SUBJECTIVE: Pt was lying in bed when OT arrived. He was agreeable to OT session. OBJECTIVE: PAIN:no c/o pain FUNCTIONAL MOBILITY Rolling L/R: (I) Supine-sit: (I) Sit-supine: S Sit-stand: SBA, FWW Stand-sit: SBA, FWW BATHING: Sitting in chair with max (A) set up Upper Body: (I) with max (A) back Lower Body: (I) with min vc for washing (B) feet and body positioning DRESSING: Sitting in chair Upper Extremity: (I) [facility] Lower Extremity: (I) [facility] (B) socks ASSESSMENT: Pt is functional tolerating ADLs well. He is able to perform his ADLs seated in the chair. OT will continue to progress pt in (I) with functional activity tolerance and standing at the sink for grooming activities. PLAN: Progression of grooming routine to be performed at sink. TREATMENT CODES/TIME: [id number], 30 minutes (07:40) Ashley Butcher OTR/[facility]
--- NOTE | 2018-04-07 10:06 | OTTR_ITS ---
Date of service: 04/07/18 Time of Service: 07:40 Occupational Therapy Notes Occupational Therapy Inpatient Treatment Note Date: 04/07/17 PRECAUTIONS: Fall, Contact SUBJECTIVE: Pt was lying in bed when OT arrived. He was agreeable to OT session. OBJECTIVE: PAIN:no c/o pain FUNCTIONAL MOBILITY Rolling L/R: (I) Supine-sit: (I) Sit-supine: S Sit-stand: SBA, FWW Stand-sit: SBA, FWW BATHING: Sitting in chair with max (A) set up Upper Body: (I) with max (A) back Lower Body: (I) with min vc for washing (B) feet and body positioning DRESSING: Sitting in chair Upper Extremity: (I) [facility] Lower Extremity: (I) [facility] (B) socks ASSESSMENT: Pt is functional tolerating ADLs well. He is able to perform his ADLs seated in the chair. OT will continue to progress pt in (I) with functional activity tolerance and standing at the sink for grooming activities. PLAN: Progression of grooming routine to be performed at sink. TREATMENT CODES/TIME: [id number], 30 minutes (07:40) Ashley Butcher OTR/[facility]
[2018-04-07] MEDS: Lidocaine 1% Multi-Dose 50 ML VIAL (10:49)
--- NOTE | 2018-04-07 11:14 | W.PM.OP ---
Date of service: 04/07/18 Time of Service: 11:14 Operative Note DATE OF PROCEDURE: 04/07/18 PRE-OP DIAGNOSIS: bactremia/infected implanted device PROCEDURE: removal of left subclavian implanted central venous access device ANESTHESIA: MAC ESTIMATED BLOOD LOSS: 5 PATHOLOGY: other (culture sent of device hub site and of catheter tip) TOURNIQUET TIME: 0 COMPLICATIONS: None Patient was transported to: floor Patient's condition: stable Implants: n/a Indications: strep+ blood cultures Findings: no gross evidence of infection Procedure Description: see dictation
[2018-04-07 11:32] LABS: Influenza A RNA Result Negative (Negative); Influenza B RNA Result Negative (Negative); RSV RNA Result Negative (Negative)
[2018-04-07] MEDS: CEFEPIME 2 GM in Normal Saline 100 ML IVPB ×2 (12:40→20:26)
[2018-04-07] MEDS: Normal Saline Flush 10 ML SYR IVP (12:41)
--- NOTE | 2018-04-07 12:50 | PDOC.CMPRO ---
- If Service Date Differs Date of service: 04/07/18 Time of Service: 12:52 Care Management Progress Note S/O:Drake has positive blood cultures, he is being treated with IV antibiotics. He is now on reveres precautions. Drake will receive platlets today. His Port was removed. CM contacted [facility] and left a message for Trish Huggins to request someone bring Vern glasses and dentures. CM to continue to provide support to patient ongoing discharge planning and disposition. A: Drake is a 78 year old male admitted with positive blood cultures, and CAP. P: Drake will return to [facility] when medically ready for discharge. He remains on IV antibiotics. He will transport back to [facility] via [facility] when he is ready. CM to continue to provide support to patient ongoing discharge planning.
[2018-04-07] MEDS: VANCOMYCIN 1,250 MG in Normal Saline 250 ML 250 MG IV (14:18)
--- NOTE | 2018-04-07 14:19 | CMPROGNOTE_ITS ---
- If Service Date Differs Date of service: 04/07/18 Time of Service: 12:52 Care Management Progress Note S/O:Drake has positive blood cultures, he is being treated with IV antibiotics. He is now on reveres precautions. Drake will receive platlets today. His Port was removed. CM contacted [facility] and left a message for Trish Huggins to request someone bring Vern glasses and dentures. CM to continue to provide support to patient ongoing discharge planning and disposition. A: Drake is a 78 year old male admitted with positive blood cultures, and CAP. P: Drake will return to [facility] when medically ready for discharge. He remains on IV antibiotics. He will transport back to [facility] via [facility] when he is ready. CM to continue to provide support to patient ongoing discharge planning.
--- NOTE | 2018-04-07 14:45 | ROE_ITS ---
DATE OF PROCEDURE: April 07, 2018 PREOPERATIVE DIAGNOSIS: Streptococcal bacteremia. POSTOPERATIVE DIAGNOSIS: Same. PROCEDURE: Removal of left subclavian implanted central vein access device for concern of infection. SURGEON: Faustina Littlejohn D.O. ANESTHESIA: MAC. ESTIMATED BLOOD LOSS: Less than 5 cc's SPECIMENS: Cultures are sent of the implanted hub site and the cath tip. COMPLICATIONS: There was no significant bleeding. INDICATIONS: Mr. Ren is a 78-year-old male who was admitted with signs of sepsis. Blood cultures were done and he did grow out Strep and there's a concern that his device is either the original source of the infection, or has become seeded. He continues to have fevers. The patient is here today for device removal. He had a PICC line placed in his right AC for access. The port is in the left subclavian site and is marked in pre-Op. There is no obvious sign of infection and it's clean, dry, intact; No redness, drainage or swelling. Informed consent is obtained. The risks and benefits of the procedure, include: bleeding, infection, scarring, non- healing, complications of anesthesia, and need for IV access device in the future. The patient is marked in preop. PROCEDURE: The patient is brought to the operating suite. Anesthesia is administered per the Department of Anesthesia. Patient is prepped and draped in a sterile fashion using ChloraPrep prep solution. A time-out is performed. the Site is infiltrated with 20 cc's of 1% Lidocaine. A #15 blade is used to open the site of the old incision. The port has a capsule well-healed around it; this is opened up and dissected out. The port does have a stitch on it; this is clipped and the catheter is removed. Again, the aerobic and anaerobic cultures are done of the hub ski site and the tip is sent for culture as well. Pressure is held. There is no significant bleeding noted. The hub site is then irrigated. The capsule tissue was approximated with #3-0 Monocryl and the skin is closed with #4-0 Monocryl, running subcuticular fashion. Pressure is held. There is no significant bleeding. Steri tapes are placed. Sterile compression dressing is applied. Patient tolerated the procedure without complication and is transferred to recovery room in stable condition. cc: Treva Refugio, M.Yany Weber M.D.
--- NOTE | 2018-04-07 15:47 | NUR.NOTE ---
Nursing Note: 04/07/18@ 1145-returned from Procedure room via stretcher. Hover mat used for transfer. Oriented to room and call lee system. No change from this AM assessment except, Left chest port removed and dressing is CDI and ice to site for comfort and swelling control. RUE midline site is running well. ABX to be infused at this time. VSS. A&Ox3 but is somewhat drowsy.
--- NOTE | 2018-04-07 16:02 | NUR.NOTE ---
04/07/18 Nursing Note: Spoke with Dr. Huff regarding administration of platelets, she stated only give one unit of platelets, do not give other blood products at this time. Spoke with [place] in blood bank and let her know.
--- NOTE | 2018-04-07 19:40 | PGE_ITS ---
Date of Service Date of service: 04/07/18 Time of Service: 15:45 Assessment and Plan (1) Streptococcal bacteremia: Current visit: Yes Status: Acute With Ejnhaf-p-Wnps being either the likely source or seeded, now s/p extraction today (04/07/18) Repeat blood cultures show no growth to date. Looking over culture data, I see the patient has grown this strep in urine before. He does have nephrolithiasis, seen on prior CT's. Will discuss with urology whether or not further workup of this is indicated. Due to patient now being neutrapenic, his antibiotics were expanded to vancomycin, cefepime. (2) Fever: Current visit: Yes Status: Acute As above (3) Generalized weakness: Current visit: Yes Status: Acute Continue Parkinson's medications, PT/OT Treat infection as above. (4) Diabetes mellitus, insulin dependent (IDDM), controlled: Current visit: Yes Status: Acute Cover with SSI (5) Ambulatory dysfunction: Current visit: Yes Status: Acute PT/OT consutled (6) Parkinsons disease: Current visit: Yes Status: Chronic continue home meds (7) Pancytopenia: Current visit: No Status: Chronic worse; now neutropenic and febrile. s/p preop platelet transfusion today, tolerated well, no bleeding intra/post-op. Monitor WBC. Abx broadended today. On neutropenic precautions. Avoid chemical and mechanical DVT ppx. (8) Cirrhosis of liver: Current visit: No Status: Chronic Stable. (9) Hematuria: Current visit: No Status: Chronic F/u as outpatient (10) CAP (community acquired pneumonia): Current visit: Yes Status: Acute The findings on chest x-ray is new, though it is likely that the patient had this from the very beginning, and the chest x-ray was not showing it because the patient was dehydrated. Abx changed to vanco/cefepime (neutropenic and febrile). (11) Heart murmur: Current visit: Yes Status: Acute For echo tomorrow. (12) Discharge planning issues: Current visit: Yes Status: Acute Patient had a lengthy discussion with me in regards to his code status - he would like to have everything done if there is hope of returning to his current quality of life. DNR/DNI that was originally in the computer was rescinded. (13) DVT prophylaxis: Current visit: Yes Status: Acute Contraindicated due to thrombocytopenia (14) Neutropenic fever: Current visit: Yes Status: Acute as above Subjective Interval history since last seen: Mr Ren is s/p mediport extraction today after getting a transfusion of platelets. Denies dizziness, chest pain, shortness of breath, nausea, vomiting. Feels weak. Exam Narrative Exam Narrative: General: Very pleasant elderly male, alert and oriented x3, laying comfortably in bed, looks tired HEENT: EOMI, MMM Cardiovascular: RRR, + CASS Lungs: Diminished breath sounds B Gastrointestinal: abdomen soft, nontender, nondistended Extremities: trace edema BLE's - symmetric; no clubbing/cyanosis BLE's Objective Objective Clinical Data: Abnormal lab results 04/06/18 04/07/18 04/07/18 Range/Units 16:50 06:35 06:35 WBC 1.49 L* D (4.4-10.8) k/cumm RBC 3.10 L (4.50-6.00) m/cumm Hgb 9.1 L (13.5-17.5) g/dL Hct 27.1 L (40.0-50.0) % RDW 16.3 H (11.8-14.1) % Plt Count 44 L (130-400) x1000/uL MPV 11.3 H (8.0-11.0) fL Absolute Neutrophils 0.86 L (1.2-6.7) k/cumm Absolute Lymphocytes 0.25 L (1.2-3.4) k/cumm PT (9.3-11.0) sec INR (0.9-1.1) Chloride 108 H (98-107) mmol/L Glucose 126 H (70-100) mg/dL Calcium 7.6 L (8.5-10.1) mg/dL C-Reactive Protein 3.97 H (0.0-0.3) mg/dL Crossmatch See Detail 04/07/18 Range/Units 06:35 WBC (4.4-10.8) k/cumm RBC (4.50-6.00) m/cumm Hgb (13.5-17.5) g/dL Hct (40.0-50.0) % RDW (11.8-14.1) % Plt Count (130-400) x1000/uL MPV (8.0-11.0) fL Absolute Neutrophils (1.2-6.7) k/cumm Absolute Lymphocytes (1.2-3.4) k/cumm PT 12.8 H (9.3-11.0) sec INR 1.3 H (0.9-1.1) Chloride (98-107) mmol/L Glucose (70-100) mg/dL Calcium (8.5-10.1) mg/dL C-Reactive Protein (0.0-0.3) mg/dL Crossmatch Vital Signs Temperature 36.8 C 04/07/18 16:04 Temperature Source Tympanic 04/07/18 16:04 Pulse 69 04/07/18 16:04 Pulse Rhythm Regular 04/07/18 16:04 Pulse 91 H 04/05/18 12:10 Respiratory Rate 18 04/07/18 16:04 Respiratory Effort 04/07/18 16:04 Respiratory Depth Normal 04/07/18 16:04 Respiratory Pattern Normal 04/07/18 16:04 Blood Pressure 156/74 H 04/07/18 16:04 Blood Pressure Mean 70 04/05/18 12:08 Blood Pressure Position Supine 04/05/18 08:18 Pulse Oximetry 97 04/07/18 13:30 Oxygen Delivery Method Room Air 04/07/18 16:04 Oxygen Flow Rate 0 04/07/18 16:04 Pain Level 0 04/07/18 13:30 Intake & Output 04/06/18 04/07/18 04/07/18 23:59 11:59 23:59 Intake Total 660.0 / 1997.5 573 / 1493 920 / 1493 Output Total 1050 / 1600 1525 / 1775 250 / 1775 Balance -390.0 / 397.5 -952 / -282 670 / -282 Weight 97.6 kg Intake: IV 420.0 / 1017.5 100 / 300 200 / 300 Oral 240 / 980 120 / 840 720 / 840 Blood Product 353 / 353 Pheresis Platelets Unit 353 / 353 [id number] Output: Urine 1050 / 1600 1525 / 1775 250 / 1775 Other: Urine Color Dark Vi Straw Yellow Urine Appearance Clear Clear Clear Comment voided per PACU x2 Stool Size Small Large Stool Characteristics Soft Liquid Voiding Methods Urinal Urinal Toilet Laboratory Results WBC 1.49 k/cumm (4.4-10.8) L* D 04/07/18 06:35 RBC 3.10 m/cumm (4.50-6.00) L 04/07/18 06:35 Hgb 9.1 g/dL (13.5-17.5) L 04/07/18 06:35 Hct 27.1 % (40.0-50.0) L 04/07/18 06:35 MCV 87.4 fL (80-95) 04/07/18 06:35 MCH 29.4 pg (27.0-33.0) 04/07/18 06:35 MCHC 33.6 g/dL (32.0-36.0) 04/07/18 06:35 RDW 16.3 % (11.8-14.1) H 04/07/18 06:35 Plt Count 44 x1000/uL (130-400) L 04/07/18 06:35 MPV 11.3 fL (8.0-11.0) H 04/07/18 06:35 Immature Gran % 0.7 04/07/18 06:35 Neutrophils % 57.6 04/07/18 06:35 Lymphocytes % 16.8 04/07/18 06:35 Monocytes % 12.8 04/07/18 06:35 Eosinophils % 11.4 04/07/18 06:35 Basophils % 0.7 04/07/18 06:35 Absolute Neutrophils 0.86 k/cumm (1.2-6.7) L 04/07/18 06:35 Absolute Lymphocytes 0.25 k/cumm (1.2-3.4) L 04/07/18 06:35 Absolute Monocytes 0.19 k/cumm (0.11-0.7) 04/07/18 06:35 Absolute Eosinophils 0.17 k/cumm (0.0-0.7) 04/07/18 06:35 Absolute Basophils 0.01 k/cumm (0.0-0.2) 04/07/18 06:35 Differential Comment Diff reviewed 04/07/18 06:35 RBC Morphology See below 04/07/18 06:35 Polychromasia Present 04/07/18 06:35 Poikilocytosis 2+ 04/07/18 06:35 Anisocytosis 2+ 04/07/18 06:35 Ovalocytes 2+ 04/06/18 06:50 PT 12.8 sec (9.3-11.0) H 04/07/18 06:35 INR 1.3 (0.9-1.1) H 04/07/18 06:35 Sodium 140 mmol/L (136-145) 04/07/18 06:35 Potassium 3.8 mmol/L (3.5-5.1) 04/07/18 06:35 Chloride 108 mmol/L (98-107) H 04/07/18 06:35 Carbon Dioxide 25.9 mmol/L (21.0-32.0) 04/07/18 06:35 Anion Gap 6.1 mmol/L (3-11) 04/07/18 06:35 BUN 12 mg/dL (7-18) 04/07/18 06:35 Creatinine 0.94 mg/dL (0.70-1.30) 04/07/18 06:35 Estimated GFR/1.73 m2 >= 60.00 (mL/min/1.73m2) 04/07/18 06:35 Glucose 126 mg/dL (70-100) H 04/07/18 06:35 Lactate 1.9 mmol/L (0.6-1.4) H 04/05/18 08:35 Calcium 7.6 mg/dL (8.5-10.1) L 04/07/18 06:35 Magnesium 2.1 mg/dL (1.8-2.4) 04/07/18 06:35 Total Bilirubin 1.9 mg/dL (0.2-1.0) H 04/05/18 08:35 AST 37 U/L (15-37) 04/05/18 08:35 ALT 21 U/L (12-78) 04/05/18 08:35 Alkaline Phosphatase 179 U/L (46-116) H 04/05/18 08:35 C-Reactive Protein 3.97 mg/dL (0.0-0.3) H 04/07/18 06:35 Total Protein 6.5 g/dL (6.4-8.2) 04/05/18 08:35 Albumin 2.5 g/dL (3.4-5.0) L 04/05/18 08:35 Urine Color Dark yellow (Yellow) 04/05/18 09:41 Urine Clarity Sl cloudy 04/05/18 09:41 Urine pH >= 9.0 (5-8) H 04/05/18 09:41 Ur Specific [place] 1.015 (1.005-1.025) 04/05/18 09:41 Urine Protein 100 mg/dL (Negative) H 04/05/18 09:41 Urine Ketones Trace mg/dL (Negative) H 04/05/18 09:41 Urine Blood Large (Negative) H 04/05/18 09:41 Urine Nitrite Negative (Negative) 04/05/18 09:41 Urine Bilirubin Small (Negative) H 04/05/18 09:41 Urine Urobilinogen >=8.0 EU/dL (Up TO 0.2) 04/05/18 09:41 Ur Leukocyte Esterase Negative (Negative) 04/05/18 09:41 Urine RBC >50 (0-2) H 04/05/18 09:41 Urine WBC 3-5 HPF (0-5) 04/05/18 09:41 Ur Epithelial Cells Negative HPF (Negative) 04/05/18 09:41 Urine Crystals Negative HPF (Negative) 04/05/18 09:41 Urine Bacteria Negative HPF (Negative) 04/05/18 09:41 Urine Casts Negative LPF (Negative) 04/05/18 09:41 Urine Mucus Trace (Negative) 04/05/18 09:41 Urine Other Few renal (Negative) 04/05/18 09:41 Ur Culture Indicated? No 04/05/18 09:41 Urine Glucose 100 mg/dL (Negative) 04/05/18 09:41 Specimen Type nasopharyngeal 04/05/18 11:30 Influenza Type A RNA Negative (Negative) 04/05/18 11:30 Influenza Type B RNA Negative (Negative) 04/05/18 11:30 RSV RNA Qual (PCR) Negative (Negative) 04/05/18 11:30 Patient ABO/Rh O Positive 04/06/18 16:50 Antibody Screen Positive 04/06/18 16:50 Antibody Identification Anti-E 04/06/18 16:50 Crossmatch See Detail 04/06/18 16:50
[2018-04-07] MEDS: Melatonin 3 MG TAB 6 MG PO (21:32)
[2018-04-07] MEDS: Insulin Aspart 300 UNITS/3 ML PEN SC (21:34)
[2018-04-07] MEDS: Normal Saline 500 ML IV (22:11)
[2018-04-08] VITALS (13 sets, daily range): BP systolic 121–161; BP diastolic 68–78; PULSE 69–79; RESP 1–24; TEMP 36.3–38; O2SAT 95–100
[2018-04-08] MEDS: Albuterol/Ipratropium 3 ML UPD VIAL UPD ×4 (00:59→18:37)
[2018-04-08] MEDS: Normal Saline Flush 10 ML SYR IVP ×3 (01:23→12:30)
[2018-04-08] MEDS: VANCOMYCIN 1,250 MG in Normal Saline 250 ML 166.667 MG IV (01:24)
[2018-04-08] MEDS: CEFEPIME 2 GM in Normal Saline 100 ML IVPB ×3 (03:44→20:17)
[2018-04-08 07:33] LABS: Absolute Basophil Count 0.01 k/cumm (0.0-0.2); Absolute Eosinophil Count 0.15 k/cumm (0.0-0.7); Absolute Lymphocyte Count 0.22 k/cumm (1.2-3.4); Absolute Monocyte Count 0.15 k/cumm (0.11-0.7); Absolute Neutrophil Count 0.78 k/cumm (1.2-6.7); Anion Gap 6.9 mmol/L (3-11); BUN 11 mg/dL (7-18); Basophils % 0.8; C-Reactive Protein 1.93 mg/dL (0.0-0.3); CO2 25.1 mmol/L (21.0-32.0); CREATININE 0.88 mg/dL (0.70-1.30); Calcium 7.7 mg/dL (8.5-10.1); Chloride 106 mmol/L (98-107); Eosinophils % 11.5; Glucose 150 mg/dL (70-100); HCT 27.3 % (40.0-50.0); Lymphocytes % 16.8; Magnesium 1.8 mg/dL (1.8-2.4); Mean Corpuscular Hemoglobin 28.7 pg (27.0-33.0); Mean Corpuscular Volume 86.9 fL (80-95); Mean Platelet Volume 10.5 fL (8.0-11.0); Monocytes % 11.5; Neutrophils % 59.4; Potassium 3.9 mmol/L (3.5-5.1); RBC 3.14 m/cumm (4.50-6.00); Sodium 138 mmol/L (136-145)
[2018-04-08 08:40] LABS: Platelet Count 59 x1000/uL (130-400); White Blood Cell Count 1.31 k/cumm (4.4-10.8)
[2018-04-08 08:41] LABS: Diff Comment Diff Reviewed; Hypochromasia 2+; Macrocytosis 1+
[2018-04-08 08:42] LABS: Polychromasia Present
[2018-04-08] MEDS: Carvedilol 3.125 MG TAB PO ×2 (09:00→20:59)
[2018-04-08] MEDS: Pantoprazole 40 MG TABCR PO ×2 (09:04→20:59)
[2018-04-08] MEDS: Magnesium Oxide 400 MG TAB PO (09:05)
--- NOTE | 2018-04-08 09:10 | MERGE_ITS ---
*[facility]* *[facility]* [address] [place] [address] Date of study: 04/08/2018 Transthoracic Echocardiography M-mode, complete 2D, complete spectral Doppler, and color Doppler *STUDY CONCLUSIONS* Summary: 1. Left ventricle: Wall thickness was increased in a pattern of moderate LVH. Systolic function was hyperdynamic. The estimated ejection fraction was 65-70%. Diastolic parameters were normal for age. There was no evidence of elevated ventricular filling pressure by Doppler parameters. 2. Mitral valve: There was mild regurgitation. 3. Right ventricle: The cavity size was normal. Wall thickness was normal. Systolic function was normal. 4. Atrial septum: No defect or patent foramen ovale was identified. 5. Pulmonary arteries: Pulmonary systolic pressure was in the range of 35mm Hg to 45mm Hg. 6. Inferior vena cava: The vessel was patent and normal in size. The respirophasic diameter changes were in the normal range (greater than or equal to 50%), consistent with normal central venous pressure. *PATIENT PRESENTATION* Height: 172.7cm ((68in) ) S/D Pressure: 154 / 72 Weight: 97.1kg ((213.6lb) ) BSA: 2.19m^2 Test start time: 09:20 AM. Test stop time: 10:15 AM. PERFORMING Unknown PERFORMING [facility] [employer] RT Yvonne (R)(CT), RDCS CONSULTING Ismael Weber Yelena A REFERRING Kogan, Yelena A *PROCEDURE DATA* Procedure information: This study was interpreted by [facility]. Pertinent images and digital data are archived for permanent storage and are available for subsequent review. No prior study was available for comparison. Transthoracic echocardiography. M-mode, complete 2D, complete spectral Doppler, and color Doppler. A Transthoracic Echocardiogram was performed. Scanning was performed from the parasternal, apical, subcostal, and suprasternal notch acoustic windows. Images were obtained using an [id number] cardiac ultrasound machine. Image quality was adequate. Study completion: The patient tolerated the procedure well. History: PMH: New heart murmur. Bacteremia, ? Endocarditis. *CARDIAC ANATOMY* Left ventricle: Wall thickness was increased in a pattern of moderate LVH. Systolic function was hyperdynamic. The estimated ejection fraction was 65-70%. Diastolic parameters were normal for age. There was no evidence of elevated ventricular filling pressure by Doppler parameters. Aortic valve: Trileaflet; mildly thickened, mildly calcified leaflets. Doppler: There was no stenosis. There was no regurgitation. VTI ratio of LVOT to aortic valve: 0.79. Valve area (VTI): 2.3cm^2. Indexed valve area (VTI): 1.1cm^2/m^2. Peak velocity ratio of LVOT to aortic valve: 0.79. Valve area (Vmax): 2.3cm^2. Indexed valve area (Vmax): 1.1cm^2/m^2. Mean velocity ratio of LVOT to aortic valve: 0.81. Valve area (Vmean): 2.4cm^2. Indexed valve area (Vmean): 1.1cm^2/m^2. Mean gradient (S): 8.7mm Hg. Peak gradient (S): 16.4mm Hg. Aorta: Aortic root: The aortic root was normal in size. Ascending aorta: The ascending aorta was mildly dilated. Mitral valve: Doppler: There was no evidence for stenosis. There was mild regurgitation. Valve area by pressure half-time: 3cm^2. Indexed valve area by pressure half-time: 1.4cm^2/m^2. Peak gradient (D): 4.1mm Hg. Left atrium: The atrium was normal in size. Atrial septum: No defect or patent foramen ovale was identified. Right ventricle: The cavity size was normal. Wall thickness was normal. Systolic function was normal. Pulmonic valve: Doppler: There was no evidence for stenosis. There was no significant regurgitation. Tricuspid valve: Doppler: There was mild regurgitation. Pulmonary artery: Poorly visualized. Pulmonary systolic pressure was in the range of 35mm Hg to 45mm Hg. Right atrium: The atrium was normal in size. Pericardium: There was no pericardial effusion. Systemic veins: Inferior vena cava: Not well visualized. The vessel was patent and normal in size. The respirophasic diameter changes were in the normal range (greater than or equal to 50%), consistent with normal central venous pressure. Baseline ECG: Normal sinus rhythm. Measurements Left ventricle Value Reference LV ID, ED, PLAX 4.9 cm 3.5 - 6.0 LV ID, ES, PLAX 3.0 cm 2.1 - 4.0 LV PW thickness, ED, PLAX 1.3 cm LV end-diastolic volume, 1-p A2C 78 ml LV ejection fraction, 1-p A2C 68 % LV end-diastolic volume, 1-p A4C 103 ml LV ejection fraction, 1-p A4C 66 % LV e', lateral 0.095 m/sec LV E/e', lateral 11 LV e', medial 0.077 m/sec LV E/e', medial 13 LV e', average 0.086 m/sec LV E/e', average 12 Ventricular septum Value Reference IVS thickness, ED, PLAX 1.5 cm LVOT Value Reference LVOT ID, A-P 1.9 cm LVOT area 3 cm^2 LVOT peak velocity, S 1.59 m/sec LVOT mean velocity, S 1.12 m/sec LVOT VTI, S 35.3 cm LVOT peak gradient, S 10.1 mm Hg LVOT mean gradient, S 5.5 mm Hg Stroke volume (SV), LVOT DP 104 ml Stroke index (SV/bsa), LVOT DP 48 ml/m^2 Aortic valve Value Reference Aortic valve peak velocity, S 2 m/sec Aortic valve mean velocity, S 1.38 m/sec Aortic valve VTI, S 45.0 cm Aortic mean gradient, S 8.7 mm Hg Aortic peak gradient, S 16.4 mm Hg VTI ratio, LVOT/AV 0.79 Aortic valve area, VTI 2.3 cm^2 Velocity ratio, peak, LVOT/AV 0.79 Aortic valve area, peak velocity 2.3 cm^2 Velocity ratio, mean, LVOT/AV 0.81 Aortic valve area, mean velocity 2.4 cm^2 Aortic valve area/bsa, mean velocity 1.1 cm^2/m^2 Aorta Value Reference Aortic root ID, ED 3.4 cm Ascending aorta ID, A-P, S 3.9 cm Left atrium Value Reference LA ID, A-P, ES 4.7 cm LA ID/bsa, A-P 2.1 cm/m^2 <=2.2 LA area, ES, A4C (H) 27.5 cm^2 8.8 - 23.4 LA area, ES, A2C 24 cm^2 LA volume/bsa, ES, 1-p A4C 42 ml/m^2 LA volume, ES, 2-p 73 ml LA volume/bsa, ES, 2-p 33 ml/m^2 LA/aortic root ratio 1.37 Mitral valve Value Reference Mitral E-wave peak velocity 1.01 m/sec Mitral A-wave peak velocity 1.16 m/sec Mitral deceleration time (H) 253 ms 150 - 230 Mitral pressure half-time 73 ms Mitral peak gradient, D 4.1 mm Hg Mitral E/A ratio, peak 0.87 Mitral valve area, PHT, DP 3 cm^2 Pulmonary veins Value Reference Pulmonary vein peak velocity, S 0.71 m/sec Pulmonary vein peak velocity, D 0.56 m/sec Pulmonary vein velocity ratio, peak, 1.27 S/D Pulmonary vein A-wave reversal peak 0.33 m/sec velocity Tricuspid valve Value Reference Tricuspid regurg peak velocity 3 m/sec Tricuspid peak RV-RA gradient 36.8 mm Hg Right atrium Value Reference RA area, ES, A4C 17.5 cm^2 8.3 - 19.5 Legend: (L) and (H) enriqueta values outside specified reference range. I have personally reviewed the images and have reviewed and edited the reported findings. Electronically signed by Brandon Boothe MD 04/08/2018 11:42
--- NOTE | 2018-04-08 09:33 | PDOC.CMPRO ---
- If Service Date Differs Date of service: 04/08/18 Time of Service: 09:33 Care Management Progress Note S/O:Drake has positive blood cultures, He will need at least one week of IV antibiotics pending echocardiogram if there is evidence of endocarditis he will need at least two weeks of IV per provider. Drake's friend was able to bring him his dentures, glasses and cell phone. A: Drake is a 78 year old male admitted with positive blood cultures, and CAP. P: Drake will return to [facility] when medically ready for discharge. He remains on IV antibiotics. He will transport back to [facility] via RCT when he is ready. CM to continue to provide support to patient ongoing discharge planning.
--- NOTE | 2018-04-08 09:45 | CMPROGNOTE_ITS ---
- If Service Date Differs Date of service: 04/08/18 Time of Service: 09:33 Care Management Progress Note S/O:Drake has positive blood cultures, He will need at least one week of IV antibiotics pending echocardiogram if there is evidence of endocarditis he will need at least two weeks of IV per provider. Drake's friend was able to bring him his dentures, glasses and cell phone. A: Drake is a 78 year old male admitted with positive blood cultures, and CAP. P: Drake will return to [facility] when medically ready for discharge. He remains on IV antibiotics. He will transport back to [facility] via RCT when he is ready. CM to continue to provide support to patient ongoing discharge planning.
--- NOTE | 2018-04-08 10:11 | W.PM.PROGNOT ---
Date of Service Date of service: 04/07/18 Time of Service: 14:30 Assessment and Plan (1) Streptococcal bacteremia: Current visit: Yes Status: Acute s/p port removal. doing well from surgical standpoint. No postOp bleeding cultures pd type and length of abx per Hosp has PICC curently for IV access Subjective Interval history since last seen: Late entry from 04/07 pt doing well post-OP. awake and alert. no n/v. no pain. c/o being hungry. no bleeding from site. no swelling Objective Objective Clinical Data: Abnormal lab results 04/08/18 04/08/18 Range/Units 06:24 06:24 WBC 1.31 L* (4.4-10.8) k/cumm RBC 3.14 L (4.50-6.00) m/cumm Hgb 9.0 L (13.5-17.5) g/dL Hct 27.3 L (40.0-50.0) % RDW 16.0 H (11.8-14.1) % Plt Count 59 L (130-400) x1000/uL Absolute Neutrophils 0.78 L (1.2-6.7) k/cumm Absolute Lymphocytes 0.22 L (1.2-3.4) k/cumm Glucose 150 H (70-100) mg/dL Calcium 7.7 L (8.5-10.1) mg/dL C-Reactive Protein 1.93 H (0.0-0.3) mg/dL Vital Signs Temperature 36.7 C 04/08/18 07:49 Temperature Source Tympanic 04/08/18 07:49 Pulse 72 04/08/18 07:49 Pulse Rhythm Regular 04/08/18 00:59 Pulse 91 H 04/05/18 12:10 Respiratory Rate 18 04/08/18 07:49 Respiratory Effort 04/08/18 00:59 Respiratory Depth Normal 04/08/18 00:59 Respiratory Pattern Normal 04/08/18 00:59 Blood Pressure 142/74 H 04/08/18 07:49 Blood Pressure Mean 70 04/05/18 12:08 Blood Pressure Position Supine 04/05/18 08:18 Pulse Oximetry 95 04/08/18 07:49 Oxygen Delivery Method Room Air 04/08/18 07:49 Oxygen Flow Rate 0 04/08/18 07:49 Pain Level 6 04/08/18 07:49 Comment 04/08/18 03:41 Intake & Output 04/07/18 04/07/18 04/08/18 11:59 23:59 11:59 Intake Total 573 / 1843 1270 / 1843 786.667 / 786.667 Output Total 1525 / 1925 400 / 1925 650 / 650 Balance -952 / -82 870 / -82 136.667 / 136.667 Weight 97.6 kg 98.2 kg Intake: IV 100 / 650 550 / 650 336.667 / 336.667 Oral 120 / 840 720 / 840 450 / 450 Blood Product 353 / 353 Pheresis Platelets Unit 353 / 353 [id number] Output: Urine 1525 / 1925 400 / 1925 250 / 250 Stool 400 / 400 Other: Urine Color Straw Yellow Yellow Urine Appearance Clear Clear Clear Urine Odor None Normal Comment voided per PACU x2 400cc mixed urine and diarrhea bm Stool Size Small Large Large Stool Characteristics Soft Liquid Liquid Voiding Methods Urinal Urinal Bedside Commode Laboratory Results WBC 1.31 k/cumm (4.4-10.8) L* 04/08/18 06:24 RBC 3.14 m/cumm (4.50-6.00) L 04/08/18 06:24 Hgb 9.0 g/dL (13.5-17.5) L 04/08/18 06:24 Hct 27.3 % (40.0-50.0) L 04/08/18 06:24 MCV 86.9 fL (80-95) 04/08/18 06:24 MCH 28.7 pg (27.0-33.0) 04/08/18 06:24 MCHC 33.0 g/dL (32.0-36.0) 04/08/18 06:24 RDW 16.0 % (11.8-14.1) H 04/08/18 06:24 Plt Count 59 x1000/uL (130-400) L 04/08/18 06:24 MPV 10.5 fL (8.0-11.0) 04/08/18 06:24 Immature Gran % 0.0 04/08/18 06:24 Neutrophils % 59.4 04/08/18 06:24 Lymphocytes % 16.8 04/08/18 06:24 Monocytes % 11.5 04/08/18 06:24 Eosinophils % 11.5 04/08/18 06:24 Basophils % 0.8 04/08/18 06:24 Absolute Neutrophils 0.78 k/cumm (1.2-6.7) L 04/08/18 06:24 Absolute Lymphocytes 0.22 k/cumm (1.2-3.4) L 04/08/18 06:24 Absolute Monocytes 0.15 k/cumm (0.11-0.7) 04/08/18 06:24 Absolute Eosinophils 0.15 k/cumm (0.0-0.7) 04/08/18 06:24 Absolute Basophils 0.01 k/cumm (0.0-0.2) 04/08/18 06:24 Differential Comment Diff reviewed 04/08/18 06:24 RBC Morphology See below 04/08/18 06:24 Polychromasia Present 04/08/18 06:24 Hypochromasia 2+ 04/08/18 06:24 Poikilocytosis 2+ 04/07/18 06:35 Anisocytosis 2+ 04/07/18 06:35 Macrocytosis 1+ 04/08/18 06:24 Ovalocytes 2+ 04/06/18 06:50 PT 12.8 sec (9.3-11.0) H 04/07/18 06:35 INR 1.3 (0.9-1.1) H 04/07/18 06:35 Sodium 138 mmol/L (136-145) 04/08/18 06:24 Potassium 3.9 mmol/L (3.5-5.1) 04/08/18 06:24 Chloride 106 mmol/L (98-107) 04/08/18 06:24 Carbon Dioxide 25.1 mmol/L (21.0-32.0) 04/08/18 06:24 Anion Gap 6.9 mmol/L (3-11) 04/08/18 06:24 BUN 11 mg/dL (7-18) 04/08/18 06:24 Creatinine 0.88 mg/dL (0.70-1.30) 04/08/18 06:24 Estimated GFR/1.73 m2 >= 60.00 (mL/min/1.73m2) 04/08/18 06:24 Glucose 150 mg/dL (70-100) H 04/08/18 06:24 Lactate 1.9 mmol/L (0.6-1.4) H 04/05/18 08:35 Calcium 7.7 mg/dL (8.5-10.1) L 04/08/18 06:24 Magnesium 1.8 mg/dL (1.8-2.4) 04/08/18 06:24 Total Bilirubin 1.9 mg/dL (0.2-1.0) H 04/05/18 08:35 AST 37 U/L (15-37) 04/05/18 08:35 ALT 21 U/L (12-78) 04/05/18 08:35 Alkaline Phosphatase 179 U/L (46-116) H 04/05/18 08:35 C-Reactive Protein 1.93 mg/dL (0.0-0.3) H 04/08/18 06:24 Total Protein 6.5 g/dL (6.4-8.2) 04/05/18 08:35 Albumin 2.5 g/dL (3.4-5.0) L 04/05/18 08:35 Urine Color Dark yellow (Yellow) 04/05/18 09:41 Urine Clarity Sl cloudy 04/05/18 09:41 Urine pH >= 9.0 (5-8) H 04/05/18 09:41 Ur Specific [place] 1.015 (1.005-1.025) 04/05/18 09:41 Urine Protein 100 mg/dL (Negative) H 04/05/18 09:41 Urine Ketones Trace mg/dL (Negative) H 04/05/18 09:41 Urine Blood Large (Negative) H 04/05/18 09:41 Urine Nitrite Negative (Negative) 04/05/18 09:41 Urine Bilirubin Small (Negative) H 04/05/18 09:41 Urine Urobilinogen >=8.0 EU/dL (Up TO 0.2) 04/05/18 09:41 Ur Leukocyte Esterase Negative (Negative) 04/05/18 09:41 Urine RBC >50 (0-2) H 04/05/18 09:41 Urine WBC 3-5 HPF (0-5) 04/05/18 09:41 Ur Epithelial Cells Negative HPF (Negative) 04/05/18 09:41 Urine Crystals Negative HPF (Negative) 04/05/18 09:41 Urine Bacteria Negative HPF (Negative) 04/05/18 09:41 Urine Casts Negative LPF (Negative) 04/05/18 09:41 Urine Mucus Trace (Negative) 04/05/18 09:41 Urine Other Few renal (Negative) 04/05/18 09:41 Ur Culture Indicated? No 04/05/18 09:41 Urine Glucose 100 mg/dL (Negative) 04/05/18 09:41 Specimen Type nasopharyngeal 04/05/18 11:30 Influenza Type A RNA Negative (Negative) 04/05/18 11:30 Influenza Type B RNA Negative (Negative) 04/05/18 11:30 RSV RNA Qual (PCR) Negative (Negative) 04/05/18 11:30 Patient ABO/Rh O Positive 04/06/18 16:50 Antibody Screen Positive 04/06/18 16:50 Antibody Identification Anti-E 04/06/18 16:50 Crossmatch See Detail 04/06/18 16:50 Objective Narrative Objective Narrative: Dressing site c/d/i. no pain or swelling.
--- NOTE | 2018-04-08 10:33 | OT.INTREAT ---
Date of service: 04/08/18 Time of Service: 08:15 Occupational Therapy Notes Occupational Therapy Inpatient Treatment Note Date: 04/08/18 PRECAUTIONS: Contact and Fall precautions SUBJECTIVE: Pt was lying in bed when OT arrived. He is upset about is Parkinsons medication but states that he was able to take it on time this morning. He states that he had his port removed due to an infection yesterday. Pt states that he has more tests to be performed today and believes that they are happening after OT session. OBJECTIVE: PAIN:no c/o pain FUNCTIONAL MOBILITY Rolling L/R: S Supine-sit: SBA BATHING: Sitting on side of the bed Upper Body: (I) wash face and (B) UEs Lower Body: NT as pts breakfast arrived and he wanted to eat prior to testing. DRESSING: Sitting on side of bed Upper Extremity: (I) [facility] go Lower Extremity: NT EATING: (I) pt was able to bring food to mouth and open and close packages sitting on side of bed. ASSESSMENT/PLAN: Pt was not able to perform bed mobility as (I) as he had the past few sessions. He required mod vc to go from supine to sit. He was able to perform eating, dressing and bathing routine sitting on the side of the bed but wanted to stay in the seated position today because he felt a little tired. Pt would benefit from continued skilled OT intervention for progression of ADLs to the standing position with FWW standing at sink. TREATMENT CODES/TIME: [id number], 24 minutes (08:15) Ashley Butcher OTR/[facility]
--- NOTE | 2018-04-08 10:36 | OTTR_ITS ---
Date of service: 04/08/18 Time of Service: 08:15 Occupational Therapy Notes Occupational Therapy Inpatient Treatment Note Date: 04/08/18 PRECAUTIONS: Contact and Fall precautions SUBJECTIVE: Pt was lying in bed when OT arrived. He is upset about is Parkinson s medication but states that he was able to take it on time this morning. He states that he had his port removed due to an infection yesterday. Pt states that he has more tests to be performed today and believes that they are happening after OT session. OBJECTIVE: PAIN:no c/o pain FUNCTIONAL MOBILITY Rolling L/R: S Supine-sit: SBA BATHING: Sitting on side of the bed Upper Body: (I) wash face and (B) UEs Lower Body: NT as pts breakfast arrived and he wanted to eat prior to testing. DRESSING: Sitting on side of bed Upper Extremity: (I) [facility] go Lower Extremity: NT EATING: (I) pt was able to bring food to mouth and open and close packages sitting on side of bed. ASSESSMENT/PLAN: Pt was not able to perform bed mobility as (I) as he had the past few sessions. He required mod vc to go from supine to sit. He was able to perform eating, dressing and bathing routine sitting on the side of the bed but wanted to stay in the seated position today because he felt a little tired. Pt would benefit from continued skilled OT intervention for progression of ADLs to the standing position with FWW standing at sink. TREATMENT CODES/TIME: [id number], 24 minutes (08:15) Ashley Butcher OTR/[facility]
--- NOTE | 2018-04-08 11:53 | PT.INTREAT ---
Date of service: 04/08/18 Time of Service: 11:15 PT Notes Inpatient Physical Therapy Treatment Note [facility] Date: 04/08/18 PRECAUTIONS:Fall, standard SUBJECTIVE: Drake states that his speech has been slurred this morning. He is due for his Sinemet dose any moment. He states that he continues to feel very weak and unsteady. OBJECTIVE: PAIN: denies BED MOBILITY/TRANSFERS At initiation of session, patient is transferring back to chair from commode with nursing. Sit-stand: min A Stand-sit: min A GAIT Assistive Device: FWW Weight bearing: full Assist: min A Distance: 15' Deviation: significant ataxia, with poor foot placement bilat and posteriorly directed losses of balance, which are corrected with min A at the trunk THEREX: Patient completes UE and LE strengthening activities in the recliner, as noted in flowsheet. ASSESSMENT: Patient demonstrating significant weakness and ataxia today, worsened since his last session on 04/06/18. Nursing was alerted to changes. PLAN: continue progressing toward established goals TREATMENT CODE/TIME: 11:15 - 11:45 ([id number])
--- NOTE | 2018-04-08 12:00 | PTTR_ITS ---
Date of service: 04/08/18 Time of Service: 11:15 PT Notes Inpatient Physical Therapy Treatment Note [facility] Date: 04/08/18 PRECAUTIONS:Fall, standard SUBJECTIVE: Drake states that his speech has been slurred this morning. He is d ue for his Sinemet dose any moment. He states that he continues to feel very weak and unsteady. OBJECTIVE: PAIN: denies BED MOBILITY/TRANSFERS At initiation of session, patient is transferring back to chair from commode with nursing. Sit-stand: min A Stand-sit: min A GAIT Assistive Device: FWW Weight bearing: full Assist: min A Distance: 15' Deviation: significant ataxia, with poor foot placement bilat and posteriorly directed losses of balance, which are corrected with min A at the trunk THEREX: Patient completes UE and LE strengthening activities in the recliner, as noted in flowsheet. ASSESSMENT: Patient demonstrating significant weakness and ataxia today, wo rsened since his last session on 04/06/18. Nursing was alerted to changes. PLAN: continue progressing toward established goals TREATMENT CODE/TIME: 11:15 - 11:45 ([id number])
--- NOTE | 2018-04-08 12:06 | W.PM.PROGNOT ---
Date of Service Date of service: 04/08/18 Time of Service: 12:06 Assessment and Plan (1) Streptococcal bacteremia: Current visit: Yes Status: Acute s/p port removal. No signs of bleeding pt doing well Iv abx per hosp has PICC for access at this time local wound care cont care per hosp dc when medically stable (2) Heart murmur: Current visit: Yes Status: Acute as above (3) Neutropenic fever: Current visit: Yes Status: Acute as above (4) Central line-associated bloodstream infection: Current visit: Yes Status: Acute as above Subjective Interval history since last seen: no bleeding from surgery site. no pain at the site or swelling. no arm pain or swelling. min bruising Exam Narrative Exam Narrative: surgical site in left clavicle region is c/d/i. no swelling min brusing. pt denies pain. Skin General skin exam: no rashes or lesions noted Other: see above Objective Objective Clinical Data: Abnormal lab results 04/08/18 04/08/18 Range/Units 06:24 06:24 WBC 1.31 L* (4.4-10.8) k/cumm RBC 3.14 L (4.50-6.00) m/cumm Hgb 9.0 L (13.5-17.5) g/dL Hct 27.3 L (40.0-50.0) % RDW 16.0 H (11.8-14.1) % Plt Count 59 L (130-400) x1000/uL Absolute Neutrophils 0.78 L (1.2-6.7) k/cumm Absolute Lymphocytes 0.22 L (1.2-3.4) k/cumm Glucose 150 H (70-100) mg/dL Calcium 7.7 L (8.5-10.1) mg/dL C-Reactive Protein 1.93 H (0.0-0.3) mg/dL Vital Signs Temperature 36.7 C 04/08/18 07:49 Temperature Source Tympanic 04/08/18 07:49 Pulse 72 04/08/18 07:49 Pulse Rhythm Regular 04/08/18 00:59 Pulse 91 H 04/05/18 12:10 Respiratory Rate 18 04/08/18 07:49 Respiratory Effort 04/08/18 00:59 Respiratory Depth Normal 02/20/19 00:59 Respiratory Pattern Normal 04/08/18 00:59 Blood Pressure 142/74 H 04/08/18 07:49 Blood Pressure Mean 70 04/05/18 12:08 Blood Pressure Position Supine 04/05/18 08:18 Pulse Oximetry 95 04/08/18 10:40 Oxygen Delivery Method Room Air 04/08/18 10:40 Oxygen Flow Rate 0 04/08/18 10:40 Pain Level 6 04/08/18 07:49 Comment 04/08/18 03:41 Intake & Output 04/07/18 04/08/18 04/08/18 23:59 11:59 23:59 Intake Total 1270 / 1843 786.667 / 786.667 Output Total 400 / 1925 650 / 650 Balance 870 / -82 136.667 / 136.667 Weight 98.2 kg Intake: IV 550 / 650 336.667 / 336.667 Oral 720 / 840 450 / 450 Output: Urine 400 / 1925 250 / 250 Stool 400 / 400 Other: Urine Color Yellow Yellow Urine Appearance Clear Clear Urine Odor None Normal Comment Mixed with stool Stool Size Large Moderate Stool Characteristics Liquid Soft Brown Voiding Methods Urinal Bedside Commode Laboratory Results WBC 1.31 k/cumm (4.4-10.8) L* 04/08/18 06:24 RBC 3.14 m/cumm (4.50-6.00) L 04/08/18 06:24 Hgb 9.0 g/dL (13.5-17.5) L 04/08/18 06:24 Hct 27.3 % (40.0-50.0) L 04/08/18 06:24 MCV 86.9 fL (80-95) 04/08/18 06:24 MCH 28.7 pg (27.0-33.0) 04/08/18 06:24 MCHC 33.0 g/dL (32.0-36.0) 04/08/18 06:24 RDW 16.0 % (11.8-14.1) H 04/08/18 06:24 Plt Count 59 x1000/uL (130-400) L 04/08/18 06:24 MPV 10.5 fL (8.0-11.0) 04/08/18 06:24 Immature Gran % 0.0 04/08/18 06:24 Neutrophils % 59.4 02/20/19 06:24 Lymphocytes % 16.8 04/08/18 06:24 Monocytes % 11.5 04/08/18 06:24 Eosinophils % 11.5 04/08/18 06:24 Basophils % 0.8 04/08/18 06:24 Absolute Neutrophils 0.78 k/cumm (1.2-6.7) L 04/08/18 06:24 Absolute Lymphocytes 0.22 k/cumm (1.2-3.4) L 04/08/18 06:24 Absolute Monocytes 0.15 k/cumm (0.11-0.7) 04/08/18 06:24 Absolute Eosinophils 0.15 k/cumm (0.0-0.7) 04/08/18 06:24 Absolute Basophils 0.01 k/cumm (0.0-0.2) 04/08/18 06:24 Differential Comment Diff reviewed 04/08/18 06:24 RBC Morphology See below 04/08/18 06:24 Polychromasia Present 04/08/18 06:24 Hypochromasia 2+ 04/08/18 06:24 Poikilocytosis 2+ 04/07/18 06:35 Anisocytosis 2+ 04/07/18 06:35 Macrocytosis 1+ 04/08/18 06:24 Ovalocytes 2+ 04/06/18 06:50 PT 12.8 sec (9.3-11.0) H 04/07/18 06:35 INR 1.3 (0.9-1.1) H 04/07/18 06:35 Sodium 138 mmol/L (136-145) 04/08/18 06:24 Potassium 3.9 mmol/L (3.5-5.1) 04/08/18 06:24 Chloride 106 mmol/L (98-107) 04/08/18 06:24 Carbon Dioxide 25.1 mmol/L (21.0-32.0) 04/08/18 06:24 Anion Gap 6.9 mmol/L (3-11) 04/08/18 06:24 BUN 11 mg/dL (7-18) 04/08/18 06:24 Creatinine 0.88 mg/dL (0.70-1.30) 04/08/18 06:24 Estimated GFR/1.73 m2 >= 60.00 (mL/min/1.73m2) 04/08/18 06:24 Glucose 150 mg/dL (70-100) H 04/08/18 06:24 Lactate 1.9 mmol/L (0.6-1.4) H 04/05/18 08:35 Calcium 7.7 mg/dL (8.5-10.1) L 04/08/18 06:24 Magnesium 1.8 mg/dL (1.8-2.4) 04/08/18 06:24 Total Bilirubin 1.9 mg/dL (0.2-1.0) H 04/05/18 08:35 AST 37 U/L (15-37) 04/05/18 08:35 ALT 21 U/L (12-78) 04/05/18 08:35 Alkaline Phosphatase 179 U/L (46-116) H 04/05/18 08:35 C-Reactive Protein 1.93 mg/dL (0.0-0.3) H 04/08/18 06:24 Total Protein 6.5 g/dL (6.4-8.2) 04/05/18 08:35 Albumin 2.5 g/dL (3.4-5.0) L 04/05/18 08:35 Urine Color Dark yellow (Yellow) 04/05/18 09:41 Urine Clarity Sl cloudy 04/05/18 09:41 Urine pH >= 9.0 (5-8) H 04/05/18 09:41 Ur Specific [place] 1.015 (1.005-1.025) 04/05/18 09:41 Urine Protein 100 mg/dL (Negative) H 04/05/18 09:41 Urine Ketones Trace mg/dL (Negative) H 04/05/18 09:41 Urine Blood Large (Negative) H 04/05/18 09:41 Urine Nitrite Negative (Negative) 04/05/18 09:41 Urine Bilirubin Small (Negative) H 04/05/18 09:41 Urine Urobilinogen >=8.0 EU/dL (Up TO 0.2) 04/05/18 09:41 Ur Leukocyte Esterase Negative (Negative) 04/05/18 09:41 Urine RBC >50 (0-2) H 04/05/18 09:41 Urine WBC 3-5 HPF (0-5) 04/05/18 09:41 Ur Epithelial Cells Negative HPF (Negative) 04/05/18 09:41 Urine Crystals Negative HPF (Negative) 04/05/18 09:41 Urine Bacteria Negative HPF (Negative) 04/05/18 09:41 Urine Casts Negative LPF (Negative) 04/05/18 09:41 Urine Mucus Trace (Negative) 04/05/18 09:41 Urine Other Few renal (Negative) 04/05/18 09:41 Ur Culture Indicated? No 04/05/18 09:41 Urine Glucose 100 mg/dL (Negative) 04/05/18 09:41 Specimen Type nasopharyngeal 04/05/18 11:30 Influenza Type A RNA Negative (Negative) 04/05/18 11:30 Influenza Type B RNA Negative (Negative) 04/05/18 11:30 RSV RNA Qual (PCR) Negative (Negative) 04/05/18 11:30 Patient ABO/Rh O Positive 04/06/18 16:50 Antibody Screen Positive 04/06/18 16:50 Antibody Identification Anti-E 04/06/18 16:50 Crossmatch See Detail 04/06/18 16:50
[2018-04-08] MEDS: Insulin Aspart 300 UNITS/3 ML PEN SC ×2 (12:27→21:00)
[2018-04-08] MEDS: VANCOMYCIN 1,250 MG in Normal Saline 250 ML 167 MG IV (14:04)
--- NOTE | 2018-04-08 15:25 | DI.CT_ITS ---
SYMPTOMS/DIAGNOSIS: DYSARTHRIA SINCE YESTERDAY, BACTEREMIA CT BRAIN, NONCONTRAST: Comparison 12/27/16. The ventricles and sulci are consistent with the patient's age. No intracranial hemorrhage, infarct, acute midline shift or mass effect is identified. The ventricles are intact. The basilar cisterns are patent. There is near complete opacification of the maxillary sinuses bilaterally. There is thickening of the calvillo of the maxillary sinuses. These findings are consistent with chronic sinusitis. There is mild mucosal thickening in a few ethmoid air cells and the sphenoid sinus. There appear to be postsurgical changes of the mastoid air cells on the left with opacification of a few of the right mastoid air cells. The calvarium is intact. No acute fracture is seen. IMPRESSION: 1. No acute intracranial process. 2. Findings consistent with chronic sinusitis.
--- NOTE | 2018-04-08 18:37 | PGE_ITS ---
Date of Service Date of service: 04/08/18 Time of Service: 14:40 Assessment and Plan (1) Streptococcal bacteremia: Current visit: Yes Status: Acute With Sdells-y-Yovf being either the likely source or seeded, now s/p extraction today (04/07/18) Repeat blood cultures actually show coag negative staph. Cultures again repeated today. Echo without evidence of endocarditis. No evidence of UTI on this admission, but did grow strep agalactiae in his urine before and has a h/o of nephrolithiasis. Due to patient now being neutrapenic, continue vancomycin, cefepime. (2) Fever: Current visit: Yes Status: Acute As above (3) Generalized weakness: Current visit: Yes Status: Acute Continue Parkinson's medications, PT/OT Treat infection as above. My impression is that the slurred speech is actually patient's acute infection affecting his Parkinson's symptoms vs him being on a different formulation of carbidopa-levodopa for the last couple of days. Doubt CVA. Will monitor. (4) Diabetes mellitus, insulin dependent (IDDM), controlled: Current visit: Yes Status: Acute Cover with SSI (5) Ambulatory dysfunction: Current visit: Yes Status: Acute PT/OT consutled (6) Parkinsons disease: Current visit: Yes Status: Chronic continue home meds (7) Pancytopenia: Current visit: No Status: Chronic neutropenic and febrile. s/p plt transfusion prior to surgery Monitor WBC. Continue neutropenic precautions Avoid chemical and mechanical DVT ppx. (8) Cirrhosis of liver: Current visit: No Status: Chronic Stable. (9) Hematuria: Current visit: No Status: Chronic F/u as outpatient (10) CAP (community acquired pneumonia): Current visit: Yes Status: Acute Continue vanco/cefepime (neutropenic and febrile). (11) Heart murmur: Current visit: Yes Status: Acute No evidence of endocarditis at this time. Does have mild tricuspid and mitral regurgitation on echo. (12) Discharge planning issues: Current visit: Yes Status: Acute Full code (13) DVT prophylaxis: Current visit: Yes Status: Acute Contraindicated due to thrombocytopenia (14) Neutropenic fever: Current visit: Yes Status: Acute as above Subjective Interval history since last seen: I was called to patient's bedside because his speech was perceived to be different from his baseline - it was thought to be more slurred. We were able to get a little bit more collateral information from his infusion center nurse who has seen him with speech like this when he was being excessively dosed with ultram as outpatient in the past. He complains of a headache, denies dizziness, chest pain other than at the site of the infusaport extraction, shortness of breath, nausea, vomiting. Exam Narrative Exam Narrative: General: Very pleasant elderly male, alert and oriented x3, laying comfortably in bed, is having slurred speech, but no other focal deficits; able to move all 4 extremities, strength intact HEENT: EOMI, MMM Cardiovascular: RRR, + CASS Lungs: Diminished breath sounds B Gastrointestinal: abdomen soft, nontender, nondistended Extremities: trace edema BLE's - symmetric; no clubbing/cyanosis BLE's Objective Objective Clinical Data: Abnormal lab results 04/08/18 04/08/18 Range/Units 06:24 06:24 WBC 1.31 L* (4.4-10.8) k/cumm RBC 3.14 L (4.50-6.00) m/cumm Hgb 9.0 L (13.5-17.5) g/dL Hct 27.3 L (40.0-50.0) % RDW 16.0 H (11.8-14.1) % Plt Count 59 L (130-400) x1000/uL Absolute Neutrophils 0.78 L (1.2-6.7) k/cumm Absolute Lymphocytes 0.22 L (1.2-3.4) k/cumm Glucose 150 H (70-100) mg/dL Calcium 7.7 L (8.5-10.1) mg/dL C-Reactive Protein 1.93 H (0.0-0.3) mg/dL Vital Signs Temperature 36.5 C 04/08/18 15:35 Temperature Source Temporal Artery Scan 04/08/18 15:35 Pulse 70 04/08/18 15:35 Pulse Rhythm Regular 04/08/18 08:15 Pulse 91 H 04/05/18 12:10 Respiratory Rate 24 04/08/18 15:35 Respiratory Effort 04/08/18 08:15 Respiratory Depth Normal 04/08/18 08:15 Respiratory Pattern Normal 04/08/18 08:15 Blood Pressure 159/72 H 04/08/18 15:35 Blood Pressure Mean 70 04/05/18 12:08 Blood Pressure Position Supine 04/05/18 08:18 Pulse Oximetry 97 04/08/18 15:35 Oxygen Delivery Method Room Air 04/08/18 15:35 Oxygen Flow Rate 0 04/08/18 15:35 Pain Level 6 04/08/18 11:41 Comment 04/08/18 03:41 Intake & Output 04/07/18 04/08/18 04/08/18 23:59 11:59 23:59 Intake Total 1270 / 1843 886.667 / 1156.667 270 / 1156.667 Output Total 400 / 1925 650 / 650 Balance 870 / -82 236.667 / 506.667 270 / 506.667 Weight 98.2 kg Intake: IV 550 / 650 436.667 / 436.667 Oral 720 / 840 450 / 720 270 / 720 Output: Urine 400 / 1925 250 / 250 Stool 400 / 400 Other: Urine Color Yellow Yellow Yellow Urine Appearance Clear Clear Clear Urine Odor None Normal Normal Comment Mixed with stool Stool Size Large Moderate Large Stool Characteristics Liquid Soft Liquid Brown Brown Voiding Methods Urinal Bedside Commode Bedside Commode Laboratory Results WBC 1.31 k/cumm (4.4-10.8) L* 04/08/18 06:24 RBC 3.14 m/cumm (4.50-6.00) L 04/08/18 06:24 Hgb 9.0 g/dL (13.5-17.5) L 04/08/18 06:24 Hct 27.3 % (40.0-50.0) L 04/08/18 06:24 MCV 86.9 fL (80-95) 04/08/18 06:24 MCH 28.7 pg (27.0-33.0) 04/08/18 06:24 MCHC 33.0 g/dL (32.0-36.0) 04/08/18 06:24 RDW 16.0 % (11.8-14.1) H 04/08/18 06:24 Plt Count 59 x1000/uL (130-400) L 04/08/18 06:24 MPV 10.5 fL (8.0-11.0) 04/08/18 06:24 Immature Gran % 0.0 04/08/18 06:24 Neutrophils % 59.4 04/08/18 06:24 Lymphocytes % 16.8 04/08/18 06:24 Monocytes % 11.5 04/08/18 06:24 Eosinophils % 11.5 04/08/18 06:24 Basophils % 0.8 04/08/18 06:24 Absolute Neutrophils 0.78 k/cumm (1.2-6.7) L 04/08/18 06:24 Absolute Lymphocytes 0.22 k/cumm (1.2-3.4) L 04/08/18 06:24 Absolute Monocytes 0.15 k/cumm (0.11-0.7) 04/08/18 06:24 Absolute Eosinophils 0.15 k/cumm (0.0-0.7) 04/08/18 06:24 Absolute Basophils 0.01 k/cumm (0.0-0.2) 04/08/18 06:24 Differential Comment Diff reviewed 04/08/18 06:24 RBC Morphology See below 04/08/18 06:24 Polychromasia Present 04/08/18 06:24 Hypochromasia 2+ 04/08/18 06:24 Poikilocytosis 2+ 04/07/18 06:35 Anisocytosis 2+ 04/07/18 06:35 Macrocytosis 1+ 04/08/18 06:24 Ovalocytes 2+ 04/06/18 06:50 PT 12.8 sec (9.3-11.0) H 04/07/18 06:35 INR 1.3 (0.9-1.1) H 04/07/18 06:35 Sodium 138 mmol/L (136-145) 04/08/18 06:24 Potassium 3.9 mmol/L (3.5-5.1) 04/08/18 06:24 Chloride 106 mmol/L (98-107) 04/08/18 06:24 Carbon Dioxide 25.1 mmol/L (21.0-32.0) 04/08/18 06:24 Anion Gap 6.9 mmol/L (3-11) 04/08/18 06:24 BUN 11 mg/dL (7-18) 04/08/18 06:24 Creatinine 0.88 mg/dL (0.70-1.30) 04/08/18 06:24 Estimated GFR/1.73 m2 >= 60.00 (mL/min/1.73m2) 04/08/18 06:24 Glucose 150 mg/dL (70-100) H 04/08/18 06:24 Lactate 1.9 mmol/L (0.6-1.4) H 04/05/18 08:35 Calcium 7.7 mg/dL (8.5-10.1) L 04/08/18 06:24 Magnesium 1.8 mg/dL (1.8-2.4) 04/08/18 06:24 Total Bilirubin 1.9 mg/dL (0.2-1.0) H 04/05/18 08:35 AST 37 U/L (15-37) 04/05/18 08:35 ALT 21 U/L (12-78) 04/05/18 08:35 Alkaline Phosphatase 179 U/L (46-116) H 04/05/18 08:35 C-Reactive Protein 1.93 mg/dL (0.0-0.3) H 04/08/18 06:24 Total Protein 6.5 g/dL (6.4-8.2) 04/05/18 08:35 Albumin 2.5 g/dL (3.4-5.0) L 04/05/18 08:35 Urine Color Dark yellow (Yellow) 04/05/18 09:41 Urine Clarity Sl cloudy 04/05/18 09:41 Urine pH >= 9.0 (5-8) H 04/05/18 09:41 Ur Specific [place] 1.015 (1.005-1.025) 04/05/18 09:41 Urine Protein 100 mg/dL (Negative) H 04/05/18 09:41 Urine Ketones Trace mg/dL (Negative) H 04/05/18 09:41 Urine Blood Large (Negative) H 04/05/18 09:41 Urine Nitrite Negative (Negative) 04/05/18 09:41 Urine Bilirubin Small (Negative) H 04/05/18 09:41 Urine Urobilinogen >=8.0 EU/dL (Up TO 0.2) 04/05/18 09:41 Ur Leukocyte Esterase Negative (Negative) 04/05/18 09:41 Urine RBC >50 (0-2) H 04/05/18 09:41 Urine WBC 3-5 HPF (0-5) 04/05/18 09:41 Ur Epithelial Cells Negative HPF (Negative) 04/05/18 09:41 Urine Crystals Negative HPF (Negative) 04/05/18 09:41 Urine Bacteria Negative HPF (Negative) 04/05/18 09:41 Urine Casts Negative LPF (Negative) 04/05/18 09:41 Urine Mucus Trace (Negative) 04/05/18 09:41 Urine Other Few renal (Negative) 04/05/18 09:41 Ur Culture Indicated? No 04/05/18 09:41 Urine Glucose 100 mg/dL (Negative) 04/05/18 09:41 Specimen Type nasopharyngeal 04/05/18 11:30 Influenza Type A RNA Negative (Negative) 04/05/18 11:30 Influenza Type B RNA Negative (Negative) 04/05/18 11:30 RSV RNA Qual (PCR) Negative (Negative) 04/05/18 11:30 Patient ABO/Rh O Positive 04/06/18 16:50 Antibody Screen Positive 04/06/18 16:50 Antibody Identification Anti-E 04/06/18 16:50 Crossmatch See Detail 04/06/18 16:50 Echo: 1. Left ventricle: Wall thickness was increased in a pattern of moderate LVH. Systolic function was hyperdynamic. The estimated ejection fraction was 65-70%. Diastolic parameters were normal for age. There was no evidence of elevated ventricular filling pressure by Doppler parameters. 2. Mitral valve: There was mild regurgitation. 3. Right ventricle: The cavity size was normal. Wall thickness was normal. Systolic function was normal. 4. Atrial septum: No defect or patent foramen ovale was identified. 5. Pulmonary arteries: Pulmonary systolic pressure was in the range of 35mm Hg to 45mm Hg. 6. Inferior vena cava: The vessel was patent and normal in size. The respirophasic diameter changes were in the normal range (greater than or equal to 50%), consistent with normal central venous pressure. CT head: 1. No acute intracranial process. 2. Findings consistent with chronic sinusitis.
--- NOTE | 2018-04-08 19:07 | NUR.NOTE ---
Nursing Note: Report received from off going nurse, the patient is currently resting in bed, no needs reported at this time, the bed is in the low and locked position, side rails up x2, call light within reach.
[2018-04-08] MEDS: Benzonatate 100 MG CAP PO (20:59)
[2018-04-08] MEDS: guaiFENesin 600 MG TABCR PO (20:59)
--- NOTE | 2018-04-08 22:20 | NUR.NOTE ---
Nursing Note: Patient has been very uncooperative thus far this evening, he has been argumentative with staff regarding medication administration times and several other aspects of his care. The CC has also attempted to speak with the patient about his concerns.
[2018-04-09] MEDS: VANCOMYCIN 1,250 MG in Normal Saline 250 ML 166 MG IV (01:36)
[2018-04-09] MEDS: CEFEPIME 2 GM in Normal Saline 100 ML IVPB (03:22)
[2018-04-09] MEDS: Albuterol/Ipratropium 3 ML UPD VIAL UPD (05:57)
[2018-04-09 07:17] LABS: Abs Immature Grans 0.01 k/cumm (0.0-0.09); Absolute Basophil Count 0.01 k/cumm (0.0-0.2); Absolute Lymphocyte Count 0.28 k/cumm (1.2-3.4); Absolute Monocyte Count 0.19 k/cumm (0.11-0.7); Basophils % 0.6; Eosinophils % 5.6; HCT 27.7 % (40.0-50.0); HGB 9.4 g/dL (13.5-17.5); Immature Grans % 0.6; Lymphocytes % 15.6; Mean Corp. HGB Concentration 33.9 g/dL (32.0-36.0); Mean Corpuscular Hemoglobin 29.5 pg (27.0-33.0); Mean Corpuscular Volume 86.8 fL (80-95); Mean Platelet Volume 10.9 fL (8.0-11.0); Monocytes % 10.6; RBC 3.19 m/cumm (4.50-6.00); RBC Distribution Width 15.8 % (11.8-14.1)
[2018-04-09 07:25] VITALS: BP 155/59; PULSE 80; RESP 18; TEMP 36.7; O2SAT 97
[2018-04-09 07:33] LABS: BUN 12 mg/dL (7-18); C-Reactive Protein 1.19 mg/dL (0.0-0.3); CREATININE 0.81 mg/dL (0.70-1.30); Chloride 106 mmol/L (98-107); Glucose 179 mg/dL (70-100); Magnesium 1.6 mg/dL (1.8-2.4); Potassium 4.2 mmol/L (3.5-5.1); Sodium 138 mmol/L (136-145)
[2018-04-09 07:43] LABS: Platelet Count 61 x1000/uL (130-400); White Blood Cell Count 1.79 k/cumm (4.4-10.8)
[2018-04-09 07:44] LABS: Anisocytosis 1+; Diff Comment Diff Reviewed; Microcytosis 1+; Ovalocytes 2+; Poikilocytes 1+; Polychromasia Present
[2018-04-09] MEDS: Insulin Aspart 300 UNITS/3 ML PEN SC ×4 (08:16→20:57)
[2018-04-09] MEDS: Carvedilol 3.125 MG TAB PO ×2 (09:56→21:01)
[2018-04-09] MEDS: Magnesium Oxide 400 MG TAB PO (09:56)
[2018-04-09] MEDS: guaiFENesin 600 MG TABCR PO ×2 (09:57→21:02)
[2018-04-09] MEDS: Pantoprazole 40 MG TABCR PO ×2 (09:57→21:01)
--- NOTE | 2018-04-09 09:58 | NUTRITION ---
discussed risks and benefits off all medications with patient after reviewing all he refuses benzonatate, (it makes me cough) and carafate, (it makes me loose). all other ordered medications administered
--- NOTE | 2018-04-09 10:03 | NUR.NOTE ---
Nursing Note: slight slurring of speech noted, cranial nerves are intact, grasp equal right pedal strength weaker vs left, patient stated that this is normal
--- NOTE | 2018-04-09 11:29 | OT.INTREAT ---
Date of service: 04/09/18 Time of Service: 10:00 Occupational Therapy Notes Occupational Therapy Inpatient Treatment Note Date: 04/09/18 PRECAUTIONS: Contact, Fall SUBJECTIVE: Pt was sitting in chair, he reports that he is tired from working with PT and that he has already been washed up prior to OT session. OBJECTIVE: PAIN:no c/o pain GROOMING: sitting in chair, pt required max (A) for set up. He required mod (A) for opening toothpaste and min vc for putting teeth back in. He was unable to rinse teeth on his own and required max (A) to do so. ASSESSMENT: Pt was tired he did not want to get up from the chair. Pts speech was slurred and was difficult to understand. Pt required (A) with teeth brushing and was unable to open toothpaste at todays session. Pt would benefit from continued skilled OT intervention for progression of ADLs in the standing position. PLAN: Progression of ADLs in the standing position. TREATMENT CODES/TIME: [id number], 15 minutes (10:00) [facility]
--- NOTE | 2018-04-09 11:35 | OTTR_ITS ---
Date of service: 04/09/18 Time of Service: 10:00 Occupational Therapy Notes Occupational Therapy Inpatient Treatment Note Date: 04/09/18 PRECAUTIONS: Contact, Fall SUBJECTIVE: Pt was sitting in chair, he reports that he is tired from working with PT and that he has already been washed up prior to OT session. OBJECTIVE: PAIN:no c/o pain GROOMING: sitting in chair, pt required max (A) for set up. He required mod (A) for opening toothpaste and min vc for putting teeth back in. He was unable to rinse teeth on his own and required max (A) to do so. ASSESSMENT: Pt was tired he did not want to get up from the chair. Pts speech was slurred and was difficult to understand. Pt required (A) with teeth brushing and was unable to open toothpaste at todays session. Pt would benefit from continued skilled OT intervention for progression of ADLs in the standing position. PLAN: Progression of ADLs in the standing position. TREATMENT CODES/TIME: [id number], 15 minutes (10:00) [facility]
[2018-04-09] MEDS: MAGNESIUM SULFATE 2 GM/50 ML BAG IVPB (11:39)
[2018-04-09 11:45] VITALS: BP 139/65; PULSE 73; RESP 20; TEMP 36.8; O2SAT 96
--- NOTE | 2018-04-09 13:08 | PDOC.CMPRO ---
- If Service Date Differs Date of service: 04/09/18 Time of Service: 13:08 Care Management Progress Note S/O: Drake is sitting up in his chair when this aligner typewriter visits this morning, he is receptive to discussion. He continues to receive IV antibiotics at this time. Drake reports that he worked with PT today, however was getting dizzy so stopped. No change in DC plan at this time. A: Drake is a 78 year old male admitted with positive blood cultures, and CAP. P: Drake will return to [facility] when medically ready for discharge. He remains on IV antibiotics. He will transport back to [facility] via [facility] when he is ready. CM to continue to provide support to patient ongoing discharge planning.
--- NOTE | 2018-04-09 13:11 | PTTR_ITS ---
Date of service: 04/08/18 Time of Service: 13:10 PT Notes 04/08/18 SUBJECTIVE: Drake continues to slur his speech making it difficult to understand what he is saying. He is talking about a medication that he is going to refuse to take anymore because he thinks its the reason he is feeling so weak. He requests to talk to congregational care pastor. OBJECTIVE: Pt is sitting in his recliner. Agreeable to PT treatment. TRANSFERS: Sit to stand: Min A Stand to sit: Min A Gait: Pt stands to walker and reporting feeling dizzy. He stands for approx. 2 minutes with increase in dizziness and we defer gait at this time and pt sits back down. Therex: Seated UE/LE strengthening performed in seated position. See flow sheet. ASSESSMENT: We decide to defer gait this afternoon due to his significant dizziness upon standing. He is frustrated with his current condition. We will monitor how he is feeling tomorrow in hopes to increase his gait distance and strength in his LE's. PLAN: Continue per established POC. Treatment time: 15 minutes [id number] Mena Kinney PTA
--- NOTE | 2018-04-09 13:18 | PT.INTREAT ---
Date of service: 04/09/18 Time of Service: 12:35 PT Notes 04/09/18 SUBJECTIVE: Drake states that he is very tired. He has been up to the chair much of the afternoon and has just gotten back from the commode. OBJECTIVE: Pt is sitting in his recliner. Agreeable to PT treatment. TRANSFERS: sit-supine: supervision Sit to stand: supervision Stand to sit: supervision Gait: Patient ambulates 10' with FWW and CG, with poor foot placement and significant ataxia. Therex: UE/LE strengthening performed in seated position and supine position. Patient able to tolerate addition of bridging activities, although with need for cues for breathing. He also completes sit<->stand exercises with good tolerance. See flow sheet. ASSESSMENT: Improving activity tolerance although with continued gait instability. PLAN: Continue per established POC. Treatment time: 35 minutes [id number], [id number]
--- NOTE | 2018-04-09 13:32 | CMPROGNOTE_ITS ---
- If Service Date Differs Date of service: 04/09/18 Time of Service: 13:08 Care Management Progress Note S/O: Drake is sitting up in his chair when this creative writer visits this morning, he is receptive to discussion. He continues to receive IV antibiotics at this time. Drake reports that he worked with PT today, however was getting dizzy so stopped. No change in DC plan at this time. A: Drake is a 78 year old male admitted with positive blood cultures, and CAP. P: Drake will return to [facility] when medically ready for discharge. He remains on IV antibiotics. He will transport back to [facility] via RCT when he is ready. CM to continue to provide support to patient ongoing discharge planning.
--- NOTE | 2018-04-09 13:51 | PT.INTREAT ---
Date of service: 04/09/18 Time of Service: 13:51 PT Notes 04/09/18 SUBJECTIVE: Drake stating he feels better than yesterday. His legs continue to feel weak. He does not complain of being dizzy today. OBJECTIVE: Seated in recliner. Agreeable to PT treatment. TRANSFERS Sit to stand: CGA Stand to sit: CGA GAIT Device: FWW Weight bearing: Full Assist: CGA Distance: 10'+10'+15' with seated rest breaks in between bouts of gait Deviation: slight posterior lean Therex: Performed seated UE/LE strengthening exercises as noted on flow sheet. See flow sheet for specifics. ASSESSMENT: Progressions in safety with gait today with better foot placement and less posterior lean without need for therapist correction. PLAN: Continue to progress per established POC. Treatment time: 9:10-9:40 [id number], [id number] Mena Kinney, SENIOR TAX ANALYST
--- NOTE | 2018-04-09 13:55 | PTTR_ITS ---
Date of service: 04/09/18 Time of Service: 13:51 PT Notes 04/09/18 SUBJECTIVE: Drake stating he feels better than yesterday. His legs continue to feel weak. He does not complain of being dizzy today. OBJECTIVE: Seated in recliner. Agreeable to PT treatment. TRANSFERS Sit to stand: CGA Stand to sit: CGA GAIT Device: FWW Weight bearing: Full Assist: CGA Distance: 10'+10'+15' with seated rest breaks in between bouts of gait Deviation: slight posterior lean Therex: Performed seated UE/LE strengthening exercises as noted on flow sheet. See flow sheet for specifics. ASSESSMENT: Progressions in safety with gait today with better foot placement and less posterior lean without need for therapist correction. PLAN: Continue to progress per established POC. Treatment time: 9:10-9:40 [id number], [id number] Mena Kinney, MANAGER MEDICAL
[2018-04-09 16:18] VITALS: BP 130/64; PULSE 71; RESP 20; TEMP 36.5; O2SAT 99
--- NOTE | 2018-04-09 16:30 | NCONE_ITS ---
Date of service: 04/09/18 Time of Service: 16:30 Assessment and Plan (1) Parkinsons disease: Current visit: Yes Status: Chronic (2) Dysarthria: Current visit: Yes Status: Acute Mr. Ren is a 78 year-old, right-handed man with Parkinsons disease who is well known to me. He has had intermittent dysarthria without any other associated neurological symptoms. Today, the dysarthria has manifested around the time of Sinemet dosing. I suspect that the dysarthria may be part of a wearing off phenomenom. If this continues to occur, I would recommend increasing Sinemet to 2 tabs every 4 hours at times such as [phone]; and 2200 (if needed - depending on late he stays up). Please call with any further questions or concerns. History of Present Illness Chief Complaint: dysarthria Narrative: Handedness: right. HPI: Mr. Ren is a 78 year-old man with Parkinsons who is well known to me from clinic. I last saw him on 02/24/18. He was admitted on 04/05/18 with fever and generalized weakness found to be bacteremic. During his initial stay, there was some confusion on his Parkinson medications (Sinemet) and yesterday he was noted to have fairly significant dysarthria. This am, nursing staff noted similar speech difficulty which resolved after he was given his am Parkinson medications. His slurred speech returned around 330-4pm this afternoon. His last Sinemet was given at 1145am. He generally takes his Sinemet every ~4-5 hours. While dysarthric, he has had no correlating dysphagia. He feels ge nerally weak, especially in the legs, but otherwise, does not feel any different. He does not have focal weakness, numbness, or vision changes. Consults Requesting physician: Treva Huff Review of Systems Review of Systems All systems reviewed & are unremarkable except as noted in HPI and below [facility] Medical History Esophageal varices (Chronic) Pancytopenia (Chronic) Ventral hernia (Chronic) DM (diabetes mellitus) GERD (gastroesophageal reflux disease) HTN (hypertension) IBS (irritable bowel syndrome) Iron deficiency anemia Liver cirrhosis HANS (obstructive sleep apnea) Parkinson disease Surgical History H/O ventral hernia repair (Chronic) History of Leonid fundoplication (Chronic) History of bowel resection (Chronic) BONE MARROW BIOPSY (11/25/14) Colectomy colonoscopy (11/21/15) Family History Maternal Cousin Colon cancer Maternal Cousin Colon cancer Social History marital status details: Smoking and Tabacco status: Former Tobacco Use alcohol intake: current alcohol intake frequency: other additional social history: drinks < 1/month Visit Medication and Allergies Active Medications Generic Name Dose Route Start Last Admin Trade Name Freq PRN Reason Stop Dose Admin Acetaminophen 0 mg 04/05/18 11:07 04/06/18 23:27 Tylenol PO 650 mg Q4H PRN PRN Administration Al Hydrox/Mg Hydrox/Simethicone 30 ml 04/05/18 11:07 Mylanta Liquid PO Q2H PRN PRN Albuterol Sulfate 2.5 mg 04/05/18 11:07 Proventil Updraft UPD Q2H PRN PRN Albuterol/Ipratropium 3 ml 04/05/18 12:00 04/09/18 05:57 Duoneb Updraft UPD 3 ml Q6H INGA Administration Carvedilol 3.125 mg 04/05/18 20:00 04/09/18 09:56 Coreg PO 3.1249 mg BID INGA Administration Dextrose 0 gm 04/05/18 11:07 Insta-Glucose PO DIRECTED PRN Dextrose/Water 0 gm 04/05/18 11:07 IVP DIRECTED PRN Dimethicone/Zinc Oxide 0 gm 04/05/18 11:07 Kaden Protect Cream TP PRN PRN Docusate Sodium 100 mg 04/05/18 11:07 Colace PO TID PRN PRN Guaifenesin 600 mg 04/05/18 20:00 04/09/18 09:57 Mucinex PO 600 mg BID INGA Administration Sodium Chloride 500 mls @ 0 mls/hr 04/07/18 21:52 04/08/18 04:50 Saline 500ml Bag IV 0 mls/hr PRN PRN Infusion As Directed Ceftriaxone Sodium/Dextrose 2 gm in 50 mls @ 100 mls/hr 04/09/18 14:00 04/09/18 14:35 Rocephin IVPB 100 mls/hr Q24H INGA Administration IV Miscellaneous Supplies 1 each 04/05/18 08:30 IV DIRECTED [facility] Insulin Aspart 0 units 04/05/18 11:30 04/09/18 11:48 Novolog Flexpen SC 1 unit AC & HS INGA Administration Protocol Magnesium Oxide 400 mg 04/06/18 08:30 04/09/18 09:56 Mag-Ox 400 PO 400 mg DAILY INGA Administration Melatonin 6 mg 04/05/18 22:00 04/08/18 21:00 PO Not Given HS INGA Morphine Sulfate 2 mg 04/07/18 12:05 IVP Q2H PRN PRN Pantoprazole Sodium 40 mg 04/06/18 20:00 04/09/18 09:57 Protonix PO 40 mg BID@0730,2000 INGA Administration Pt's Own Carbidopa/ 2 each 04/08/18 11:30 04/09/18 11:44 Levodopa Cr 25-100 PO 2 each 0630,1130,1630,2100 INGA Administration Sodium Chloride 0 ml 04/05/18 08:26 04/08/18 12:30 Saline Flush 10 Ml Syringe IVP 40 ml PRN PRN Administration Tramadol HCl 25 mg 04/08/18 14:49 Ultram PO HS PRN PRN Pain Allergies leuprolide acetate [From Lupron] Allergy (Severe, Verified 04/05/18 08:23) Swelling/Edema adhesive Allergy (Intermediate, Verified 04/05/18 08:23) Skin Rash enalapril [Enalapril] Adverse Reaction (Severe, Verified 04/05/18 08:23) Hyperkalemia aspirin Adverse Reaction (Intermediate, Verified 04/05/18 08:23) esomeprazole magnesium [From Nexium] Adverse Reaction (Intermediate, Verified 04/05/18 08:23) Diarrhea metformin Adverse Reaction (Intermediate, Verified 04/05/18 08:23) Diarrhea acetaminophen Adverse Reaction (Mild, Verified 04/05/18 08:23) Diarrhea Exam Narrative Exam Narrative: Physical Exam: Constitutional: Patient of apparent stated age, well nourished, well developed, no acute distress Neck: Supple, no meningismus CV: RRR Resp: regular breathing rate Abd: Soft, nontender, nondistended Neuro: MS/Language/Speech: Alert, oriented, clear language (fluency and comprehension), mild-moderate dysarthria CN: EOMI, visual erickson full, trigeminal sensation intact, no facial asymmetry, hearing intact to whisper Motor: Normal bulk. MIld RUE cogwheel rigidity. Mild LUE bradykinesia. Did not test legs. FMM intact, no pronator drift. 5/5 strength in bilateral upper and lower extremities Sensation: Intact to light touch throughout Coordination: Finger to nose performed without dysmetria Gait: Deferred Results Last Vital Signs Temp 36.5 C 04/09/18 16:18 Pulse 71 04/09/18 16:18 Resp 20 04/09/18 16:18 BP 130/64 04/09/18 16:18 Pulse Ox 99 04/09/18 16:18 Labs : 04/09/18 06:21 04/09/18 06:21 Laboratory Results - last 24 hr 04/09/18 04/09/18 06:21 06:21 WBC 1.79 L* D RBC 3.19 L Hgb 9.4 L Hct 27.7 L MCV 86.8 MCH 29.5 MCHC 33.9 RDW 15.8 H Plt Count 61 L MPV 10.9 Immature Gran % 0.6 Neutrophils % 67.0 Lymphocytes % 15.6 Monocytes % 10.6 Eosinophils % 5.6 Basophils % 0.6 Absolute Neutrophils 1.20 Absolute Lymphocytes 0.28 L Absolute Monocytes 0.19 Absolute Eosinophils 0.10 Absolute Basophils 0.01 Differential Comment Diff reviewed RBC Morphology See below Polychromasia Present Poikilocytosis 1+ Anisocytosis 1+ Microcytosis 1+ Ovalocytes 2+ Sodium 138 Potassium 4.2 Chloride 106 Carbon Dioxide 24.0 Anion Gap 8.0 BUN 12 Creatinine 0.81 Estimated GFR/1.73 m2 >= 60.00 Glucose 179 H Calcium 8.0 L Magnesium 1.6 L C-Reactive Protein 1.19 H
--- NOTE | 2018-04-09 18:37 | NUR.NOTE ---
Nursing Note: when patient transferred from the commode to the bed his legs starred to give out on him . as he sat back on the bed he felt a pain in his lower abdomen. patient was made comfortable., information passed on to the ccc awaiting any orders
[2018-04-09] MEDS: traMADol 50 MG TAB 25 MG PO (19:02)
--- NOTE | 2018-04-09 19:41 | PGE_ITS ---
Date of Service Date of service: 04/09/18 Time of Service: 14:30 Assessment and Plan (1) Streptococcal bacteremia: Current visit: Yes Status: Acute With [id number] being either the likely source or seeded, now s/p extraction 04/07/18 Repeat blood cultures actually show Staph hominis. Cultures from 04/08 are negative to date. He has defervesced. Echo without evidence of endocarditis. No evidence of UTI on this admission, but did grow strep agalactiae in his urine before and has a h/o of nephrolithiasis. As neutropenia resolved, I switched him to rocephin 2 grams Iv daily. The start date for 2 weeks of antibiotics is 04/08. (2) Fever: Current visit: Yes Status: Resolved As above (3) Generalized weakness: Current visit: Yes Status: Acute Continue Parkinson's medications, PT/OT Treat infection as above. Discussed speech with neurology - and we both feel that it is Part of Parkinson's (medications wearing off). No evidence for CVA. (4) Diabetes mellitus, insulin dependent (IDDM), controlled: Current visit: Yes Status: Acute Cover with SSI (5) Ambulatory dysfunction: Current visit: Yes Status: Acute PT/OT consutled (6) Parkinsons disease: Current visit: Yes Status: Chronic continue home meds Read discussion about speech above (7) Pancytopenia: Current visit: No Status: Chronic neutropenic and febrile. s/p plt transfusion prior to surgery Monitor WBC. Discontinue neutropenic precautions. Avoid chemical and mechanical DVT ppx. (8) Cirrhosis of liver: Current visit: No Status: Chronic Stable. (9) Hematuria: Current visit: No Status: Chronic F/u as outpatient (10) CAP (community acquired pneumonia): Current visit: Yes Status: Acute Change abx to rocephin. (11) Heart murmur: Current visit: Yes Status: Acute No evidence of endocarditis at this time. Does have mild tricuspid and mitral regurgitation on echo. (12) Discharge planning issues: Current visit: Yes Status: Acute Full code (13) DVT prophylaxis: Current visit: Yes Status: Acute Contraindicated due to thrombocytopenia (14) Neutropenic fever: Current visit: Yes Status: Acute as above Subjective Interval history since last seen: Mr Ren states his speech is better today. Denies dizziness, chest pain, shortness of breath, nausea, vomiting. Tmax in the last 24 hours is 37.6. Exam Narrative Exam Narrative: General: Very pleasant elderly male, alert and orien lavell x3, laying in bed, still having slurred speech, but no other focal deficits; able to move all 4 extremities, strength intact HEENT: EOMI, MMM Cardiovascular: RRR, + CASS Lungs: Diminished breath sounds B Gastrointestinal: abdomen soft, nontender, nondistended Extremities: trace edema BLE's - symmetric; no clubbing/cyanosis BLE's Objective Objective Clinical Data: Abnormal lab results 04/09/18 04/09/18 Range/Units 06:21 06:21 WBC 1.79 L* D (4.4-10.8) k/cumm RBC 3.19 L (4.50-6.00) m/cumm Hgb 9.4 L (13.5-17.5) g/dL Hct 27.7 L (40.0-50.0) % RDW 15.8 H (11.8-14.1) % Plt Count 61 L (130-400) x1000/uL Absolute Lymphocytes 0.28 L (1.2-3.4) k/cumm Glucose 179 H (70-100) mg/dL Calcium 8.0 L (8.5-10.1) mg/dL Magnesium 1.6 L (1.8-2.4) mg/dL C-Reactive Protein 1.19 H (0.0-0.3) mg/dL Vital Signs Temperature 36.5 C 04/09/18 16:18 Temperature Source Tympanic 04/09/18 16:18 Pulse 71 04/09/18 16:18 Pulse Rhythm Regular 04/09/18 09:42 Pulse 91 H 04/05/18 12:10 Respiratory Rate 20 04/09/18 16:18 Respiratory Effort 04/09/18 09:42 Respiratory Depth Normal 04/09/18 09:42 Respiratory Pattern Normal 04/09/18 09:42 Blood Pressure 130/64 04/09/18 16:18 Blood Pressure Mean 70 04/05/18 12:08 Blood Pressure Position Supine 04/05/18 08:18 Pulse Oximetry 99 04/09/18 16:18 Oxygen Delivery Method Room Air 04/09/18 16:18 Oxygen Flow Rate 0 04/09/18 16:18 Pain Level 8 02/21/19 19:02 Comment 04/08/18 23:15 Intake & Output 04/08/18 04/09/18 04/09/18 23:59 11:59 23:59 Intake Total 730 / 1616.667 590 / 890 300 / 890 Output Total 750 / 1400 250 / 520 270 / 520 Balance -20 / 216.667 340 / 370 30 / 370 Weight 98.3 kg Intake: IV 460 / 896.667 350 / 400 50 / 400 Oral 270 / 720 240 / 490 250 / 490 Output: Urine 750 / 1000 250 / 520 270 / 520 Other: Urine Color Yellow Pale Dark Vi Urine Appearance Clear Clear Clear Urine Odor Normal None None Comment Mixed with BM not measured. Stool Size Small Moderate Moderate Stool Characteristics Soft Soft Soft Brown Brown Brown Voiding Methods Bedside Commode Bedside Commode Urinal Laboratory Results WBC 1.79 k/cumm (4.4-10.8) L* D 04/09/18 06:21 RBC 3.19 m/cumm (4.50-6.00) L 04/09/18 06:21 Hgb 9.4 g/dL (13.5-17.5) L 04/09/18 06:21 Hct 27.7 % (40.0-50.0) L 04/09/18 06:21 MCV 86.8 fL (80-95) 04/09/18 06:21 MCH 29.5 pg (27.0-33.0) 04/09/18 06:21 MCHC 33.9 g/dL (32.0-36.0) 04/09/18 06:21 RDW 15.8 % (11.8-14.1) H 04/09/18 06:21 Plt Count 61 x1000/uL (130-400) L 04/09/18 06:21 MPV 10.9 fL (8.0-11.0) 04/09/18 06:21 Immature Gran % 0.6 04/09/18 06:21 Neutrophils % 67.0 04/09/18 06:21 Lymphocytes % 15.6 04/09/18 06:21 Monocytes % 10.6 04/09/18 06:21 Eosinophils % 5.6 04/09/18 06:21 Basophils % 0.6 04/09/18 06:21 Absolute Neutrophils 1.20 k/cumm (1.2-6.7) 04/09/18 06:21 Absolute Lymphocytes 0.28 k/cumm (1.2-3.4) L 04/09/18 06:21 Absolute Monocytes 0.19 k/cumm (0.11-0.7) 04/09/18 06:21 Absolute Eosinophils 0.10 k/cumm (0.0-0.7) 04/09/18 06:21 Absolute Basophils 0.01 k/cumm (0.0-0.2) 04/09/18 06:21 Differential Comment Diff reviewed 04/09/18 06:21 RBC Morphology See below 04/09/18 06:21 Polychromasia Present 04/09/18 06:21 Hypochromasia 2+ 04/08/18 06:24 Poikilocytosis 1+ 04/09/18 06:21 Anisocytosis 1+ 04/09/18 06:21 Microcytosis 1+ 04/09/18 06:21 Macrocytosis 1+ 04/08/18 06:24 Ovalocytes 2+ 04/09/18 06:21 PT 12.8 sec (9.3-11.0) H 04/07/18 06:35 INR 1.3 (0.9-1.1) H 04/07/18 06:35 Sodium 138 mmol/L (136-145) 04/09/18 06:21 Potassium 4.2 mmol/L (3.5-5.1) 04/09/18 06:21 Chloride 106 mmol/L (98-107) 04/09/18 06:21 Carbon Dioxide 24.0 mmol/L (21.0-32.0) 04/09/18 06:21 Anion Gap 8.0 mmol/L (3-11) 04/09/18 06:21 BUN 12 mg/dL (7-18) 04/09/18 06:21 Creatinine 0.81 mg/dL (0.70-1.30) 04/09/18 06:21 Estimated GFR/1.73 m2 >= 60.00 (mL/min/1.73m2) 04/09/18 06:21 Glucose 179 mg/dL (70-100) H 04/09/18 06:21 Lactate 1.9 mmol/L (0.6-1.4) H 04/05/18 08:35 Calcium 8.0 mg/dL (8.5-10.1) L 04/09/18 06:21 Magnesium 1.6 mg/dL (1.8-2.4) L 04/09/18 06:21 Total Bilirubin 1.9 mg/dL (0.2-1.0) H 04/05/18 08:35 AST 37 U/L (15-37) 04/05/18 08:35 ALT 21 U/L (12-78) 04/05/18 08:35 Alkaline Phosphatase 179 U/L (46-116) H 04/05/18 08:35 C-Reactive Protein 1.19 mg/dL (0.0-0.3) H 04/09/18 06:21 Total Protein 6.5 g/dL (6.4-8.2) 04/05/18 08:35 Albumin 2.5 g/dL (3.4-5.0) L 04/05/18 08:35 Urine Color Dark yellow (Yellow) 04/05/18 09:41 Urine Clarity Sl cloudy 04/05/18 09:41 Urine pH >= 9.0 (5-8) H 04/05/18 09:41 Ur Specific [place] 1.015 (1.005-1.025) 04/05/18 09:41 Urine Protein 100 mg/dL (Negative) H 04/05/18 09:41 Urine Ketones Trace mg/dL (Negative) H 04/05/18 09:41 Urine Blood Large (Negative) H 04/05/18 09:41 Urine Nitrite Negative (Negative) 04/05/18 09:41 Urine Bilirubin Small (Negative) H 04/05/18 09:41 Urine Urobilinogen >=8.0 EU/dL (Up TO 0.2) 04/05/18 09:41 Ur Leukocyte Esterase Negative (Negative) 04/05/18 09:41 Urine RBC >50 (0-2) H 04/05/18 09:41 Urine WBC 3-5 HPF (0-5) 04/05/18 09:41 Ur Epithelial Cells Negative HPF (Negative) 04/05/18 09:41 Urine Crystals Negative HPF (Negative) 04/05/18 09:41 Urine Bacteria Negative HPF (Negative) 04/05/18 09:41 Urine Casts Negative LPF (Negative) 04/05/18 09:41 Urine Mucus Trace (Negative) 04/05/18 09:41 Urine Other Few renal (Negative) 04/05/18 09:41 Ur Culture Indicated? No 04/05/18 09:41 Urine Glucose 100 mg/dL (Negative) 04/05/18 09:41 Specimen Type nasopharyngeal 04/05/18 11:30 Influenza Type A RNA Negative (Negative) 04/05/18 11:30 Influenza Type B RNA Negative (Negative) 04/05/18 11:30 RSV RNA Qual (PCR) Negative (Negative) 04/05/18 11:30 Patient ABO/Rh O Positive 04/06/18 16:50 Antibody Screen Positive 04/06/18 16:50 Antibody Identification Anti-E 04/06/18 16:50 Crossmatch See Detail 04/06/18 16:50
[2018-04-09] MEDS: Melatonin 3 MG TAB 6 MG PO ×2 (21:00→21:05)
[2018-04-09] MEDS: Acetaminophen 325 MG TAB PO (22:35)
[2018-04-10] VITALS (7 sets, daily range): BP systolic 116–156; BP diastolic 45–73; PULSE 72–84; RESP 1–20; TEMP 36–37; O2SAT 98–100
[2018-04-10] MEDS: Albuterol/Ipratropium 3 ML UPD VIAL UPD ×3 (06:45→18:22)
[2018-04-10] MEDS: Normal Saline Flush 10 ML SYR IVP (06:46)
[2018-04-10 07:15] LABS: Abs Immature Grans 0.02 k/cumm (0.0-0.09); Absolute Eosinophil Count 0.13 k/cumm (0.0-0.7); Absolute Lymphocyte Count 0.21 k/cumm (1.2-3.4); Absolute Monocyte Count 0.24 k/cumm (0.11-0.7); Absolute Neutrophil Count 1.55 k/cumm (1.2-6.7); HCT 26.9 % (40.0-50.0); HGB 9.1 g/dL (13.5-17.5); Immature Grans % 0.9; Lymphocytes % 9.8; Mean Corp. HGB Concentration 33.8 g/dL (32.0-36.0); Mean Corpuscular Hemoglobin 29.4 pg (27.0-33.0); Mean Corpuscular Volume 86.8 fL (80-95); Mean Platelet Volume 10.9 fL (8.0-11.0); Monocytes % 11.2; Neutrophils % 72.1; RBC Distribution Width 15.8 % (11.8-14.1); White Blood Cell Count 2.15 k/cumm (4.4-10.8)
[2018-04-10 07:43] LABS: Anion Gap 5.6 mmol/L (3-11); BUN 11 mg/dL (7-18); C-Reactive Protein 0.93 mg/dL (0.0-0.3); CO2 25.4 mmol/L (21.0-32.0); CREATININE 0.71 mg/dL (0.70-1.30); Calcium 7.6 mg/dL (8.5-10.1); Chloride 106 mmol/L (98-107); Glucose 160 mg/dL (70-100); Magnesium 2.1 mg/dL (1.8-2.4); Potassium 4.3 mmol/L (3.5-5.1); Sodium 137 mmol/L (136-145)
[2018-04-10 08:15] LABS: Platelet Count 58 x1000/uL (130-400)
[2018-04-10 08:16] LABS: Diff Comment RBC Morph Reviewed
[2018-04-10 08:17] LABS: Ovalocytes 2+
[2018-04-10 08:18] LABS: Polychromasia Present
[2018-04-10] MEDS: Insulin Aspart 300 UNITS/3 ML PEN SC ×4 (09:21→20:46)
[2018-04-10] MEDS: Magnesium Oxide 400 MG TAB PO (10:30)
[2018-04-10] MEDS: guaiFENesin 600 MG TABCR PO ×2 (10:30→20:45)
[2018-04-10] MEDS: Pantoprazole 40 MG TABCR PO ×2 (10:30→20:45)
[2018-04-10] MEDS: Carvedilol 3.125 MG TAB PO ×2 (10:30→20:45)
--- NOTE | 2018-04-10 10:51 | OT.INTREAT ---
Date of service: 04/10/18 Time of Service: 08:25 Occupational Therapy Notes Occupational Therapy Inpatient Treatment Note Date: 04/10/18 PRECAUTIONS: Fall, standard SUBJECTIVE: Pt was sitting in chair when OT arrived. He is agreeable to OT session and reports that he is feeling ok today but states that he has a cough and this is bothersome to him. OBJECTIVE: PAIN:c/o pain in the (L) side of his abdomen which he reports occurred with transferring with digital field service technician nursing to his bed. He states that this is very painful and would rate this as a 6/10 on VAS. FUNCTIONAL MOBILITY Sit-stand: CGA Stand-sit: CGA Sink -Chair: CGA, FWW Chair-Sink: CGA, FWW BATHING: Upper Body: Standing at sink with FWW, CGA pt was able to wash his face (I) with min vc for body positioning DRESSING: Lower Extremity: Sitting in chair pt was (I) with donning and doffing (B) shoes with good technique GROOMING: Standing at sink pt was able to brush his teeth with CGA, FWW (I) for brushing motion and opening and closing fine motor control EATING: Sitting in chair pt was (I) with eating routine. ASSESSMENT/PLAN: Pt demonstrated increased (I) in ADLs, he requires CGA and FWW for functional mobility. He still presents with decreased functional activity tolerance for ADL routines at this time. Pt would benefit from continued skilled OT intervention for progression of (I) in ADLs in the standing position, education on energy conservation techniques. TREATMENT CODES/TIME: [id number], 24 minutes (08:25) [facility]
--- NOTE | 2018-04-10 10:59 | OTTR_ITS ---
Date of service: 04/10/18 Time of Service: 08:25 Occupational Therapy Notes Occupational Therapy Inpatient Treatment Note Date: 04/10/18 PRECAUTIONS: Fall, standard SUBJECTIVE: Pt was sitting in chair when OT arrived. He is agreeable to OT session and reports that he is feeling ok today but states that he has a cough and this is bothersome to him. OBJECTIVE: PAIN:c/o pain in the (L) side of his abdomen which he reports occurred with transferring with material handler 2nd shift nursing to his bed. He states that this is very painful and would rate this as a 6/10 on VAS. FUNCTIONAL MOBILITY Sit-stand: CGA Stand-sit: CGA Sink -Chair: CGA, FWW Chair-Sink: CGA, FWW BATHING: Upper Body: Standing at sink with FWW, CGA pt was able to wash his face (I) with min vc for body positioning DRESSING: Lower Extremity: Sitting in chair pt was (I) with donning and doffing (B) shoes with good technique GROOMING: Standing at sink pt was able to brush his teeth with CGA, FWW (I) for brushing motion and opening and closing fine motor control EATING: Sitting in chair pt was (I) with eating routine. ASSESSMENT/PLAN: Pt demonstrated increased (I) in ADLs, he requires CGA and FWW for functional mobility. He still presents with decreased functional activity tolerance for ADL routines at this time. Pt would benefit from continued skilled OT intervention for progression of (I) in ADLs in the standing position, educati on on energy conservation techniques. TREATMENT CODES/TIME: [id number], 24 minutes (08:25) [facility]
--- NOTE | 2018-04-10 12:43 | W.INDIABCONS ---
Date of service: 04/10/18 Time of Service: 12:43 Diabetes Inpatient Consult DESCRIPTION/ASSESSMENT: Appreciate diabetes consult for Drake Ren who is hospitalized with fever and infection. He is well known to outpatient [facility]. A1c 6.2 over 1 year ago; BMI 32 Blood sugars this hospitalization fasting 125-189mg/dl; other blood sugars 128-194mg/dl taking sensitive insulin correction with meals. Met with Drake who wonders why his insulin schedule is different everywhere he goes. He notes blood sugars are not as well managed here as he does at home. Otherwise he is eating 55-65grams carbohydrate most meals and satisfied with the food. INTERVENTION: GIven Mr. Ren' usual diabetes management, he may be closer to his usual glycemic control if he receives moderate insulin correction, however he is mostly at goal with the hospital inpatient standard. PLAN: Suggest increasing to moderate insulin correction given Mr. 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
--- NOTE | 2018-04-10 13:01 | DM INPTCON_ITS ---
Date of service: 04/10/18 Time of Service: 12:43 Diabetes Inpatient Consult DESCRIPTION/ASSESSMENT: Appreciate diabetes consult for Drake Ren who is hospitalized with fever and infection. He is well known to outpatient [facility]. A1c 6.2 over 1 year ago; BMI 32 Blood sugars this hospitalization fasting 125-189mg/dl; other blood sugars 128- 194mg/dl taking sensitive insulin correction with meals. Met with Drake who wonders why his insulin schedule is different everywhere he goes. He notes blood sugars are not as well managed here as he does at home. Otherwise he is eating 55-65grams carbohydrate most meals and satisfied with the food. INTERVENTION: GIven Mr. Ren' usual diabetes management, he may be closer to his usual glycemic control if he receives moderate insulin correction, however he is mostly at goal with the hospital inpatient standard. PLAN: Suggest increasing to moderate insulin correction given Mr. 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
--- NOTE | 2018-04-10 13:27 | PT.INTREAT ---
Date of service: 04/10/18 Time of Service: 08:40 PT Notes 04/10/18 SUBJECTIVE: Drake states that he is feeling well. He is having left groin pain after having a difficult transfer into bed last night. OBJECTIVE: Pt is sitting in his recliner. Patient is able to perform left hip flexion without reproduction of groin pain. He does have minor reproduction with seated theraband resisted rows. Hip ROM is grossly WFL. TRANSFERS: sit-supine: supervision Sit to stand: supervision Stand to sit: min A due to poorly controlled descent Gait: Patient ambulates 30' with FWW and min A, with poor foot placement and significant ataxia. Therex: UE/LE strengthening performed in seated position and supine position. Patient able to tolerate addition of Thera-Band resisted upper extremity strength and standing balance exercises. See flow sheet. ASSESSMENT: Improving activity tolerance although with continued gait instability. PLAN: Continue per established POC. Treatment time: 30 minutes (8:40-9:10) [id number], [id number]
[2018-04-10 13:58] LABS: AST 32 U/L (15-37); Albumin 2.4 g/dL (3.4-5.0); Alkaline Phosphatase 152 U/L (46-116); Bilirubin, Total 0.7 mg/dL (0.2-1.0); Total Protein 6.4 g/dL (6.4-8.2)
[2018-04-10 14:01] LABS: ALT < 6 U/L (12-78)
--- NOTE | 2018-04-10 14:21 | PT.INTREAT ---
Date of service: 04/10/18 Time of Service: 14:22 PT Notes 04/10/18 SUBJECTIVE: Drake stating he is quite tired this afternoon. He would like to end up in bed so he can take a nap after PT. OBJECTIVE: Seated in recliner. Agreeable to PT treatment. TRANSFERS Sit to stand: S Stand to sit: CGA Sit to supine: Min A GAIT Device: FWW Weight bearing: Full Assist: CGA Distance: 30' Deviation: Slight posterior lean Therex: Seated UE strengthening performed utilizing green thera band for resistance. Standing LE strengthening incorporating balance activities. See flow sheet for specifics. ASSESSMENT: Pt tolerating progressing ambulation well with improve foot placement and less assist required. Continues to list posteriorly at times with gait and with his balance exercises today. PLAN: Continue to progress per established POC. Session #2: 30 minutes [id number], [id number] Mena Kinney, [place]
--- NOTE | 2018-04-10 17:09 | PDOC.CMPRO ---
- If Service Date Differs Date of service: 04/10/18 Time of Service: 17:09 Care Management Progress Note S/O:Drake will need a total of seven days IV antibiotics and transition to oral antibiotics for one more week. Negative blood cultures on 04/08/18 IV antibiotics will compete on 04/15/18. Drake states he will need to stay to complete his IV antibiotics he does not have transportation to come to the hospital daily. He will continue to receive PT while inpatient. Neurology was consulted and Drake met with provider. Drake does feel his speech is better today. CM reviewed plan for discharge Drake does not want to go to a SNF however he would be willing to have home health PT. CM will fax referral anticipate Drake will be discharged on 04/15/18. A: Drake is a 78 year old male admitted with positive blood cultures, and CAP. P: Drake will return to [facility] when medically ready for discharge. He remains on IV antibiotics. He will transport back to [facility] via [facility] when he is ready. New home health services PT/OT and will need a face to face. CM to continue to provide support to patient ongoing discharge planning.
--- NOTE | 2018-04-10 17:15 | CMPROGNOTE_ITS ---
- If Service Date Differs Date of service: 04/10/18 Time of Service: 17:09 Care Management Progress Note S/O:Drake will need a total of seven days IV antibiotics and transition to oral antibiotics for one more week. Negative blood cultures on 04/08/18 IV antibiotics will compete on 04/15/18. Drake states he will need to stay to complete his IV antibiotics he does not have transportation to come to the hospital daily. He will continue to receive PT while inpatient. Neurology was consulted and Drake met with provider. Drake does feel his speech is better today. CM reviewed plan for discharge Drake does not want to go to a SNF however he would be willing to have home health PT. CM will fax referral anticipate Drake will be discharged on 04/15/18. A: Drake is a 78 year old male admitted with positive blood cultures, and CAP. P: Drake will return to [facility] when medically ready for discharge. He remains on IV antibiotics. He will transport back to [facility] via [facility] when he is ready. New home health services PT/OT and will need a face to face. CM to continue to provide support to patient ongoing discharge planning.
[2018-04-10] MEDS: traMADol 50 MG TAB 25 MG PO (18:01)
[2018-04-10] MEDS: Melatonin 3 MG TAB 6 MG PO (20:47)
--- NOTE | 2018-04-10 21:34 | W.PM.PROGNOT ---
Date of Service Date of service: 04/10/18 Time of Service: 17:15 Assessment and Plan (1) Streptococcal bacteremia: Current visit: Yes Status: Acute With Eobjeb-e-Abtr being either the likely source or seeded, now s/p extraction 04/07/18 Repeat blood cultures actually show Staph hominis (? real or contaminant). Cultures from 04/08 are negative to date. He has defervesced. Echo without evidence of endocarditis. No evidence of UTI on this admission, but did grow strep agalactiae in his urine before and has a h/o of nephrolithiasis. Continue rocephin 2 grams Iv daily. The start date for 2 weeks of antibiotics is 04/08 (Today, is effectively Day 3). May be able to transition to PO abx after 1 week of IV therapy. (2) Fever: Current visit: Yes Status: Resolved As above (3) Generalized weakness: Current visit: Yes Status: Acute Continue Parkinson's medications, PT/OT Treat infection as above. (4) Diabetes mellitus, insulin dependent (IDDM), controlled: Current visit: Yes Status: Acute Cover with SSI (5) Ambulatory dysfunction: Current visit: Yes Status: Acute PT/OT consutled (6) Parkinsons disease: Current visit: Yes Status: Chronic continue home meds Periodic dysarthria is likely due to Parkinson's meds wearing off. (7) Pancytopenia: Current visit: No Status: Chronic Neutropenic fever resolved. s/p plt transfusion prior to surgery. Monitor WBC. Avoid chemical and mechanical DVT ppx. (8) Cirrhosis of liver: Current visit: No Status: Chronic Stable. (9) Hematuria: Current visit: No Status: Chronic F/u as outpatient (10) CAP (community acquired pneumonia): Current visit: Yes Status: Acute abx changed to rocephin - improving. (11) Heart murmur: Current visit: Yes Status: Acute No evidence of endocarditis at this time. Does have mild tricuspid and mitral regurgitation on echo. (12) Discharge planning issues: Current visit: Yes Status: Acute Full code (13) DVT prophylaxis: Current visit: Yes Status: Acute Contraindicated due to thrombocytopenia (14) Neutropenic fever: Current visit: Yes Status: Acute as above Subjective Interval history since last seen: States he feels better today - has more energy, speech is better. Breathing is good, very little cough, denies chest pain, nausea, vomiting. Exam Narrative Exam Narrative: General: Very pleasant elderly male, alert and oriented x3, sitting at the edge of the bed, eating dinner HEENT: EOMI, MMM Cardiovascular: RRR, + CASS Lungs: Diminished breath sounds B Gastrointestinal: abdomen soft, nontender, nondistended Extremities: trace edema BLE's - symmetric; no clubbing/cyanosis BLE's Objective Objective Clinical Data: Abnormal lab results 04/06/18 04/10/18 04/10/18 Range/Units 16:50 06:54 06:54 WBC 2.15 L (4.4-10.8) k/cumm RBC 3.10 L (4.50-6.00) m/cumm Hgb 9.1 L (13.5-17.5) g/dL Hct 26.9 L (40.0-50.0) % RDW 15.8 H (11.8-14.1) % Plt Count 58 L (130-400) x1000/uL Absolute Lymphocytes 0.21 L (1.2-3.4) k/cumm Glucose 160 H (70-100) mg/dL Calcium 7.6 L (8.5-10.1) mg/dL Conjugated Bilirubin 0.30 H (0.00-0.20) mg/dL ALT < 6 L (12-78) U/L Alkaline Phosphatase 152 H (46-116) U/L C-Reactive Protein 0.93 H (0.0-0.3) mg/dL Albumin 2.4 L (3.4-5.0) g/dL Crossmatch See Detail Vital Signs Temperature 37.0 C 04/10/18 19:30 Temperature Source Tympanic 04/10/18 19:30 Pulse 81 04/10/18 19:30 Pulse Rhythm Regular 04/10/18 13:02 Pulse 91 H 04/05/18 12:10 Respiratory Rate 18 04/10/18 19:30 Respiratory Effort 04/10/18 13:02 Respiratory Depth Normal 04/10/18 13:02 Respiratory Pattern Normal 04/10/18 13:02 Blood Pressure 156/73 H 04/10/18 19:30 Blood Pressure Mean 70 04/05/18 12:08 Blood Pressure Position Supine 02/17/19 08:18 Pulse Oximetry 100 02/22/19 19:30 Oxygen Delivery Method Room Air 04/10/18 19:30 Oxygen Flow Rate 0 04/10/18 19:30 Pain Level 6 04/10/18 18:01 Comment 04/08/18 23:15 Intake & Output 04/09/18 04/10/18 04/10/18 23:59 11:59 23:59 Intake Total 590 / 1180 250 / 490 240 / 490 Output Total 270 / 520 250 / 625 375 / 625 Balance 320 / 660 0 / -135 -135 / -135 Weight 97.7 kg Intake: IV 100 / 450 Oral 490 / 730 250 / 490 240 / 490 Output: Urine 270 / 520 250 / 625 375 / 625 Other: Urine Color Dark Vi Straw Dark Vi Urine Appearance Clear Clear Clear Urine Odor None Strong Comment not measured, mixed in stool Stool Size Moderate Small Stool Characteristics Soft Soft Brown Formed Voiding Methods Urinal Urinal Urinal Laboratory Results WBC 2.15 k/cumm (4.4-10.8) L 04/10/18 06:54 RBC 3.10 m/cumm (4.50-6.00) L 04/10/18 06:54 Hgb 9.1 g/dL (13.5-17.5) L 04/10/18 06:54 Hct 26.9 % (40.0-50.0) L 04/10/18 06:54 MCV 86.8 fL (80-95) 04/10/18 06:54 MCH 29.4 pg (27.0-33.0) 04/10/18 06:54 MCHC 33.8 g/dL (32.0-36.0) 04/10/18 06:54 RDW 15.8 % (11.8-14.1) H 04/10/18 06:54 Plt Count 58 x1000/uL (130-400) L 04/10/18 06:54 MPV 10.9 fL (8.0-11.0) 04/10/18 06:54 Immature Gran % 0.9 04/10/18 06:54 Neutrophils % 72.1 04/10/18 06:54 Lymphocytes % 9.8 04/10/18 06:54 Monocytes % 11.2 04/10/18 06:54 Eosinophils % 6.0 04/10/18 06:54 Basophils % 0.0 04/10/18 06:54 Absolute Neutrophils 1.55 k/cumm (1.2-6.7) 04/10/18 06:54 Absolute Lymphocytes 0.21 k/cumm (1.2-3.4) L 04/10/18 06:54 Absolute Monocytes 0.24 k/cumm (0.11-0.7) 04/10/18 06:54 Absolute Eosinophils 0.13 k/cumm (0.0-0.7) 04/10/18 06:54 Absolute Basophils 0.00 k/cumm (0.0-0.2) 04/10/18 06:54 Differential Comment Rbc morph reviewed 04/10/18 06:54 RBC Morphology See below 04/10/18 06:54 Polychromasia Present 04/10/18 06:54 Hypochromasia 2+ 04/08/18 06:24 Poikilocytosis 1+ 04/09/18 06:21 Anisocytosis 1+ 04/09/18 06:21 Microcytosis 1+ 04/09/18 06:21 Macrocytosis 1+ 04/08/18 06:24 Ovalocytes 2+ 04/10/18 06:54 PT 12.8 sec (9.3-11.0) H 04/07/18 06:35 INR 1.3 (0.9-1.1) H 04/07/18 06:35 Sodium 137 mmol/L (136-145) 04/10/18 06:54 Potassium 4.3 mmol/L (3.5-5.1) 04/10/18 06:54 Chloride 106 mmol/L (98-107) 04/10/18 06:54 Carbon Dioxide 25.4 mmol/L (21.0-32.0) 04/10/18 06:54 Anion Gap 5.6 mmol/L (3-11) 04/10/18 06:54 BUN 11 mg/dL (7-18) 04/10/18 06:54 Creatinine 0.71 mg/dL (0.70-1.30) 04/10/18 06:54 Estimated GFR/1.73 m2 >= 60.00 (mL/min/1.73m2) 04/10/18 06:54 Glucose 160 mg/dL (70-100) H 04/10/18 06:54 Lactate 1.9 mmol/L (0.6-1.4) H 04/05/18 08:35 Calcium 7.6 mg/dL (8.5-10.1) L 04/10/18 06:54 Magnesium 2.1 mg/dL (1.8-2.4) 04/10/18 06:54 Total Bilirubin 0.7 mg/dL (0.2-1.0) 04/10/18 06:54 Conjugated Bilirubin 0.30 mg/dL (0.00-0.20) H 04/10/18 06:54 AST 32 U/L (15-37) 04/10/18 06:54 ALT < 6 U/L (12-78) L 04/10/18 06:54 Alkaline Phosphatase 152 U/L (46-116) H 04/10/18 06:54 C-Reactive Protein 0.93 mg/dL (0.0-0.3) H 04/10/18 06:54 Total Protein 6.4 g/dL (6.4-8.2) 04/10/18 06:54 Albumin 2.4 g/dL (3.4-5.0) L 04/10/18 06:54 Urine Color Dark yellow (Yellow) 04/05/18 09:41 Urine Clarity Sl cloudy 04/05/18 09:41 Urine pH >= 9.0 (5-8) H 04/05/18 09:41 Ur Specific [place] 1.015 (1.005-1.025) 04/05/18 09:41 Urine Protein 100 mg/dL (Negative) H 04/05/18 09:41 Urine Ketones Trace mg/dL (Negative) H 04/05/18 09:41 Urine Blood Large (Negative) H 04/05/18 09:41 Urine Nitrite Negative (Negative) 04/05/18 09:41 Urine Bilirubin Small (Negative) H 04/05/18 09:41 Urine Urobilinogen >=8.0 EU/dL (Up TO 0.2) 04/05/18 09:41 Ur Leukocyte Esterase Negative (Negative) 04/05/18 09:41 Urine RBC >50 (0-2) H 04/05/18 09:41 Urine WBC 3-5 HPF (0-5) 04/05/18 09:41 Ur Epithelial Cells Negative HPF (Negative) 04/05/18 09:41 Urine Crystals Negative HPF (Negative) 04/05/18 09:41 Urine Bacteria Negative HPF (Negative) 04/05/18 09:41 Urine Casts Negative LPF (Negative) 04/05/18 09:41 Urine Mucus Trace (Negative) 04/05/18 09:41 Urine Other Few renal (Negative) 04/05/18 09:41 Ur Culture Indicated? No 04/05/18 09:41 Urine Glucose 100 mg/dL (Negative) 04/05/18 09:41 Specimen Type nasopharyngeal 04/05/18 11:30 Influenza Type A RNA Negative (Negative) 04/05/18 11:30 Influenza Type B RNA Negative (Negative) 04/05/18 11:30 RSV RNA Qual (PCR) Negative (Negative) 04/05/18 11:30 Patient ABO/Rh O Positive 04/06/18 16:50 Antibody Screen Positive 04/06/18 16:50 Antibody Identification Anti-E 04/06/18 16:50 Crossmatch See Detail 04/06/18 16:50 Blood cx x 2 04/08/18: NGTD
[2018-04-11] VITALS (11 sets, daily range): BP systolic 115–136; BP diastolic 69–74; PULSE 74–83; RESP 2–20; TEMP 36.2–37.1; O2SAT 94–99
[2018-04-11] MEDS: Albuterol/Ipratropium 3 ML UPD VIAL UPD ×4 (00:08→18:09)
[2018-04-11] MEDS: Normal Saline Flush 10 ML SYR IVP ×2 (06:34→12:06)
[2018-04-11 08:03] LABS: Abs Immature Grans 0.02 k/cumm (0.0-0.09); Absolute Basophil Count 0.01 k/cumm (0.0-0.2); Absolute Eosinophil Count 0.14 k/cumm (0.0-0.7); Absolute Lymphocyte Count 0.21 k/cumm (1.2-3.4); Absolute Monocyte Count 0.22 k/cumm (0.11-0.7); Absolute Neutrophil Count 1.23 k/cumm (1.2-6.7); Basophils % 0.5; Eosinophils % 7.7; HGB 8.9 g/dL (13.5-17.5); Immature Grans % 1.1; Lymphocytes % 11.5; Mean Corpuscular Volume 87.9 fL (80-95); Mean Platelet Volume 11.5 fL (8.0-11.0); Neutrophils % 67.2; RBC 3.07 m/cumm (4.50-6.00); RBC Distribution Width 15.9 % (11.8-14.1)
[2018-04-11 08:07] LABS: Anion Gap 7.2 mmol/L (3-11); BUN 12 mg/dL (7-18); CO2 25.8 mmol/L (21.0-32.0); CREATININE 0.67 mg/dL (0.70-1.30); Calcium 7.7 mg/dL (8.5-10.1); Chloride 105 mmol/L (98-107); Glucose 144 mg/dL (70-100); Magnesium 1.9 mg/dL (1.8-2.4); Potassium 4.1 mmol/L (3.5-5.1); Sodium 138 mmol/L (136-145)
[2018-04-11] MEDS: Insulin Aspart 300 UNITS/3 ML PEN SC ×4 (08:07→21:54)
[2018-04-11 08:40] LABS: Platelet Count 59 x1000/uL (130-400); White Blood Cell Count 1.83 k/cumm (4.4-10.8)
[2018-04-11 08:41] LABS: Microcytosis 2+; Ovalocytes 2+
--- NOTE | 2018-04-11 09:55 | EVALE_ITS ---
Date of service: 04/11/18 Time of Service: 07:30 Speech Therapy Evaluation Note: REFERRING PROVIDER: Dr. Huff BACKGROUND This is a 78 year old right-handed male with Parkinson's disease who was admitted on 04/05/18 for bacteremia. A CXR on 04/06/18 revealed bilateral (B) infiltrates. A 04/08/[address] showed no acute findings. A fluctuation in speech intelligibility was noted and was thought to be related to the timing of his Sinimet delivery versus an acute neurological event. A swallow/speech eval was ordered on 04/10/18. PMH: PD, DM, GERD, IBS, HANS, cirrhosis of liver, esophageal varices, pancytopenia The patient (pt) is able to provide additional background information with regard to p.o. consistencies taken at home in the weeks prior to this admission. He was taking what, by description, are Thin liquids, a Dysphagia Advanced diet with chopped meats and whole pills with a Thin liquid wash. OBJECTIVE Nursing reports: - T: 37.1 - O2 sat: 97% on RA - LS: fine scattered crackles B in the presence of ABX. - Last Sinemet dosage given between 6 and 6:30 this morning (roughly 1 hour ago). - Pt is currently on a Regular consistency diet, Thin liquids and whole pills with a liquid wash. - Toleration of whole pills with a liquid wash yesterday. - Meal % intake for breakfast meal on 04/10/18: 100% taken independently. Pt is sitting in his rashmi-chair watching TV. When I enter the room he makes good direct eye contact and offers an appropriate intelligible verbal greeting despite the fact that he is not wearing his dentures. He looks older than his stated age. He is agreeable to this evaluation. He converses well, both asking and answering questions. He is able to make his wants and needs know despite mildly imprecise speech. He is A & O x 4 and able to follow 3-step directions. Oral Sensorimotor Exam The pt is totally edentulous and has both full upper and full lower dentures. He states that this set is roughly 9 years old and has not been relined despite a significant weight loss over the past two years. Consequently, he feels they are loose. He is able to show me how he inserts the dentures. On manual inspection, the full upper denture (FUD) is very loose despite the application of sustained digital pressure. Denture adhesive is then applied which does allow the FUD to stay in place during both speaking and eating/drinking throughout the visit. Oral sensation is WNL-B for buccal, labial and lingual areas. Motoric ally, the smile is symmetrical as are forehead wrinkles. Labial strength/coordination is decreased B, but buccal strength/coordination is WNL-B. No lingual deviation on protrusion is seen in a setting of good excursion. Lingual lateralization is WNL-B, but lingual rapid alternating movements are decreased. Lingual strength is WNL-B as is mandibular lateralization. Velopharyngeal elevation is strong and symmetrical. Volitional cough and throat-clear are both strong. Speech intelligibility to this unfamiliar listener in the absence of background noise is 90% due to imprecise consonant production, but increases to 100% with a request for utterance repetition. Swallowing - Honey-thick liquid: Good bolus control and posterior oral transit (POT); no azul signs/symptoms (s/s) of aspiration/penetration A/P); oral clearance 100%; no oral escape. - [place]-thick liquid: Results are the same as for Honey-thick liquid. These results are true for both single and consecutive swallows by both cup and straw. - Thin liquid: Results are the same as for [place]-thick liquid. - Puree food: Good bolus control and linguopalatal bolus compression; POT WNL: no azul s/s A/P; oral clearance 100%; no oral escape. - Mechanically Altered food: Good bolus control, mastication quality & POT; no azlu s/s A/P; oral clearance 100%; no oral escape. - Dysphagia Advanced food: Appropriately increased mastication time resulting in good mastication quality; bolus control & POT WNL; no azul s/s A/P; oral clearance 100%; no oral escape. - modified Regular food: Decreased mastication quality despite use of increased mastication time; boluses are expectorated on request. Pt is observed to be able to self-feed using his dominant RUE and a regular utensil. Speech tasks: - repetitive consonant/vowel (RCV): slow speech rate, imprecise consonants, 100% intelligibilty - coarticulation: results same as for RCV - rote/serial speech (RSS): imprecise consonants, 100% intelligibility - multisyllabic words: results same as for RSS for 2-, 3-, 4- and 5-syllable words; 6-syllable words: 60% intelligible INTERPRETATION The pt shows a mild oral-prep dysphagia and a mild flaccid dysarthria in a setting of full upper and lower dentures and PD. He is felt to be at low risk of aspiration as long as he is on his baseline p.o. consistencies. He is likely at his baseline skill levels with regard to chewing, swallowing and speech intelligibility as long as he is receiving appropriate Sinemet coverage. RECOMMENDATIONS 1. Change to a Dysphagia Advanced diet with moistened chopped meats. 2. Continue: - Thin liqiuds - whole pills with a liquid wash 3. Independent self-feeding 4. Denture adhesive in full upper denture. 5. No speech therapy indicated at this time. Thank you for referring this pt.
[2018-04-11] MEDS: Magnesium Oxide 400 MG TAB PO ×2 (10:21)
[2018-04-11] MEDS: Pantoprazole 40 MG TABCR PO ×2 (10:21→20:23)
[2018-04-11] MEDS: Carvedilol 3.125 MG TAB PO ×2 (10:21→20:23)
[2018-04-11] MEDS: guaiFENesin 600 MG TABCR PO ×2 (10:22→20:22)
--- NOTE | 2018-04-11 12:21 | PT.INTREAT ---
Date of service: 04/11/18 Time of Service: 11:10 PT Notes Inpatient Physical Therapy Treatment Note [facility] Date: 04/11/18 PRECAUTIONS: Flu SUBJECTIVE: Pt reports that he is doing better today then the other day. OBJECTIVE: Sit-stand: CGA Stand-sit: CGA GAIT Assistive Device: FWW Weight bearing: Full Assist: CGA Distance: 30ftx2 rest 30ftx2 rest THEREX: Pt completed UE and LE ther ex as per flow sheet. Pt completed a portion of his UE ther ex with the Green tubing please see flow sheet for specifics. PLAN: Cont as per PT POC. TREATMENT CODE/TIME: 11:10-11:30-(20) TA
[2018-04-11] MEDS: Nystatin POWDER 60 GM JAR TP ×2 (13:42→20:22)
--- NOTE | 2018-04-11 16:54 | NUR.NOTE ---
Nursing Note: Patient is able to transfer and rise much more confidently today, He is able to perform his own am care this morning, voice is clearer and stronger, the dressing on the site of the power port is clean, dry, intact.
--- NOTE | 2018-04-11 18:34 | PDOC.CMPRO ---
- If Service Date Differs Date of service: 04/11/18 Time of Service: 18:34 Care Management Progress Note S/O:Drake will need a total of seven days IV antibiotics and transition to oral antibiotics for one more week. Negative blood cultures on 04/08/18 IV antibiotics will compete on 04/15/18. No changes in status today. He will return to [facility] with new home health PT/OT. A: Drake is a 78 year old male admitted with positive blood cultures, and CAP. P: Drake will return to [facility] when medically ready for discharge. He remains on IV antibiotics. He will transport back to [facility] via [facility] when he is ready. New home health services PT/OT and will need a face to face. CM to continue to provide support to patient ongoing discharge planning.
--- NOTE | 2018-04-11 19:45 | W.PM.PROGNOT ---
Date of Service Date of service: 04/11/18 Time of Service: 19:46 Assessment and Plan (1) Streptococcal bacteremia: Current visit: Yes Status: Acute Evidence of GBS on Blood Culture. Interestingly, also with a Coag Negative Staph speciated to Hominis, but cannot fully discount infection as patient's source thought secondary to Port (although with catheter tip cultures negative for growth). Patient is s/p Infusaport removal. Of note, patient also with clear initial CXR, but with development of bibasilar infiltrates on CXR the day following admission. Antibiotic regimen ultimately changed to Ceftriaxone to cover for both potential pneumonia as well as bacteremia, currently daily #4 of a planned 7 day course of IV, with transition to PO antibiotics for a week following. Last negative blood culture 04/08. (2) Diabetes mellitus, insulin dependent (IDDM), controlled: Current visit: Yes Status: Acute Continue sliding scale coverage and ADA diet. (3) Pancytopenia: Current visit: No Status: Chronic Noted, with transfusion dependent anemia. Apparently following with Hematology. Continue to monitor blood counts. (4) CAP (community acquired pneumonia): Current visit: Yes Status: Acute As above. (5) DVT prophylaxis: Current visit: Yes Status: Acute SCDs and TEDs. Avoiding chemical prophylaxis given low platelet count and pancytopenia. Subjective Interval history since last seen: 78 year old man with a prior history of MGUS and Pancytopenia, with transfusion depended anemia and a chronic infusaport in place, admitted from [facility] due to onset of fevers, and eventual discovery of bacteremia. Mr. Ren is a chronic resident at [facility], and has a history of MGUS, Pancytopenia, and transfusion dependent anemia, for which he had an Infusaport in place. He also has a history of PD, cirrhosis of the liver, recent SBO, prior history of Prostate CA, and DM. He was brought to the ED via EMS with complaints of weakness and fevers. In the ED he was noted to be febrile to 38.8, with elevated lactate, and essentially negative work-up otherwise. Because the patient has a port in place, bacteremia was thought to be on the differential, and ultimately the patient grew both GBS and Staph Hominis on blood cultures necessitating removal of his port. His urinalysis and CXR were negative for infection, and a subsequent ECHO was negative for vegetation. Mr. Ren has no complaints today. He remains afebrile. Exam Narrative Exam Narrative: General: Patient appears comfortable, AAOX3, NAD Neck: Supple CV: Regular, nontachycardic, S1S2, No rubs, murmurs, or gallops. Pulmonary: Clear to auscultation bilaterally, no crackles, wheezing, or rhonchi Abdomen: + Bowel Sounds, soft, nontender, nondistended Vascular: No lower extremity edema Psych: Normal mood and affect. Objective Objective Clinical Data: Abnormal lab results 04/11/18 04/11/18 Range/Units 06:20 06:20 WBC 1.83 L* (4.4-10.8) k/cumm RBC 3.07 L (4.50-6.00) m/cumm Hgb 8.9 L (13.5-17.5) g/dL Hct 27.0 L (40.0-50.0) % RDW 15.9 H (11.8-14.1) % Plt Count 59 L (130-400) x1000/uL MPV 11.5 H (8.0-11.0) fL Absolute Lymphocytes 0.21 L (1.2-3.4) k/cumm Creatinine 0.67 L (0.70-1.30) mg/dL Glucose 144 H (70-100) mg/dL Calcium 7.7 L (8.5-10.1) mg/dL Vital Signs Temperature 36.8 C 04/11/18 16:25 Temperature Source Tympanic 04/11/18 16:25 Pulse 77 04/11/18 16:25 Pulse Rhythm Regular 04/11/18 03:05 Pulse 91 H 04/05/18 12:10 Respiratory Rate 19 04/11/18 16:25 Respiratory Effort 04/11/18 09:56 Respiratory Depth Normal 04/11/18 09:56 Respiratory Pattern Normal 04/11/18 09:56 Blood Pressure 135/74 04/11/18 16:25 Blood Pressure Mean 70 04/05/18 12:08 Blood Pressure Position Supine 04/05/18 08:18 Pulse Oximetry 94 L 04/11/18 16:25 Oxygen Delivery Method Room Air 04/11/18 16:25 Oxygen Flow Rate 0 04/11/18 16:25 Pain Level 6 04/10/18 18:01 Comment 04/08/18 23:15 Intake & Output 04/10/18 04/11/18 04/11/18 23:59 11:59 23:59 Intake Total 290 / 540 240 / 980 740 / 980 Output Total 375 / 625 425 / 715 290 / 715 Balance -85 / -85 -185 / 265 450 / 265 Weight 97.7 kg Intake: IV 50 / 50 50 / 50 Oral 240 / 490 240 / 930 690 / 930 Output: Urine 375 / 625 425 / 715 290 / 715 Other: Urine Color Dark Vi Light Vi Dark Vi Urine Appearance Clear Clear Clear Urine Odor Strong None None Comment not measured, mixed in stool Stool Size Small Large Stool Characteristics Soft Soft Formed Formed Voiding Methods Urinal Urinal Urinal Laboratory Results WBC 1.83 k/cumm (4.4-10.8) L* 04/11/18 06:20 RBC 3.07 m/cumm (4.50-6.00) L 04/11/18 06:20 Hgb 8.9 g/dL (13.5-17.5) L 04/11/18 06:20 Hct 27.0 % (40.0-50.0) L 04/11/18 06:20 MCV 87.9 fL (80-95) 04/11/18 06:20 MCH 29.0 pg (27.0-33.0) 04/11/18 06:20 MCHC 33.0 g/dL (32.0-36.0) 04/11/18 06:20 RDW 15.9 % (11.8-14.1) H 04/11/18 06:20 Plt Count 59 x1000/uL (130-400) L 04/11/18 06:20 MPV 11.5 fL (8.0-11.0) H 04/11/18 06:20 Immature Gran % 1.1 04/11/18 06:20 Neutrophils % 67.2 04/11/18 06:20 Lymphocytes % 11.5 04/11/18 06:20 Monocytes % 12.0 04/11/18 06:20 Eosinophils % 7.7 04/11/18 06:20 Basophils % 0.5 04/11/18 06:20 Absolute Neutrophils 1.23 k/cumm (1.2-6.7) 04/11/18 06:20 Absolute Lymphocytes 0.21 k/cumm (1.2-3.4) L 04/11/18 06:20 Absolute Monocytes 0.22 k/cumm (0.11-0.7) 04/11/18 06:20 Absolute Eosinophils 0.14 k/cumm (0.0-0.7) 04/11/18 06:20 Absolute Basophils 0.01 k/cumm (0.0-0.2) 04/11/18 06:20 Differential Comment Rbc morph reviewed 04/10/18 06:54 RBC Morphology See below 04/10/18 06:54 Polychromasia Present 04/10/18 06:54 Hypochromasia 2+ 04/08/18 06:24 Poikilocytosis 1+ 04/09/18 06:21 Anisocytosis 1+ 04/09/18 06:21 Microcytosis 2+ 04/11/18 06:20 Macrocytosis 1+ 04/08/18 06:24 Ovalocytes 2+ 04/11/18 06:20 PT 12.8 sec (9.3-11.0) H 04/07/18 06:35 INR 1.3 (0.9-1.1) H 04/07/18 06:35 Sodium 138 mmol/L (136-145) 04/11/18 06:20 Potassium 4.1 mmol/L (3.5-5.1) 04/11/18 06:20 Chloride 105 mmol/L (98-107) 04/11/18 06:20 Carbon Dioxide 25.8 mmol/L (21.0-32.0) 04/11/18 06:20 Anion Gap 7.2 mmol/L (3-11) 04/11/18 06:20 BUN 12 mg/dL (7-18) 04/11/18 06:20 Creatinine 0.67 mg/dL (0.70-1.30) L 04/11/18 06:20 Estimated GFR/1.73 m2 >= 60.00 (mL/min/1.73m2) 04/11/18 06:20 Glucose 144 mg/dL (70-100) H 04/11/18 06:20 Lactate 1.9 mmol/L (0.6-1.4) H 04/05/18 08:35 Calcium 7.7 mg/dL (8.5-10.1) L 04/11/18 06:20 Magnesium 1.9 mg/dL (1.8-2.4) 04/11/18 06:20 Total Bilirubin 0.7 mg/dL (0.2-1.0) 04/10/18 06:54 Conjugated Bilirubin 0.30 mg/dL (0.00-0.20) H 04/10/18 06:54 AST 32 U/L (15-37) 04/10/18 06:54 ALT < 6 U/L (12-78) L 04/10/18 06:54 Alkaline Phosphatase 152 U/L (46-116) H 04/10/18 06:54 C-Reactive Protein 0.93 mg/dL (0.0-0.3) H 04/10/18 06:54 Total Protein 6.4 g/dL (6.4-8.2) 04/10/18 06:54 Albumin 2.4 g/dL (3.4-5.0) L 04/10/18 06:54 Urine Color Dark yellow (Yellow) 04/05/18 09:41 Urine Clarity Sl cloudy 04/05/18 09:41 Urine pH >= 9.0 (5-8) H 04/05/18 09:41 Ur Specific [place] 1.015 (1.005-1.025) 04/05/18 09:41 Urine Protein 100 mg/dL (Negative) H 04/05/18 09:41 Urine Ketones Trace mg/dL (Negative) H 04/05/18 09:41 Urine Blood Large (Negative) H 04/05/18 09:41 Urine Nitrite Negative (Negative) 04/05/18 09:41 Urine Bilirubin Small (Negative) H 04/05/18 09:41 Urine Urobilinogen >=8.0 EU/dL (Up TO 0.2) 04/05/18 09:41 Ur Leukocyte Esterase Negative (Negative) 04/05/18 09:41 Urine RBC >50 (0-2) H 04/05/18 09:41 Urine WBC 3-5 HPF (0-5) 04/05/18 09:41 Ur Epithelial Cells Negative HPF (Negative) 04/05/18 09:41 Urine Crystals Negative HPF (Negative) 04/05/18 09:41 Urine Bacteria Negative HPF (Negative) 04/05/18 09:41 Urine Casts Negative LPF (Negative) 04/05/18 09:41 Urine Mucus Trace (Negative) 04/05/18 09:41 Urine Other Few renal (Negative) 04/05/18 09:41 Ur Culture Indicated? No 04/05/18 09:41 Urine Glucose 100 mg/dL (Negative) 04/05/18 09:41 Specimen Type nasopharyngeal 04/05/18 11:30 Influenza Type A RNA Negative (Negative) 04/05/18 11:30 Influenza Type B RNA Negative (Negative) 04/05/18 11:30 RSV RNA Qual (PCR) Negative (Negative) 04/05/18 11:30 Patient ABO/Rh O Positive 04/06/18 16:50 Antibody Screen Positive 04/06/18 16:50 Antibody Identification Anti-E 04/06/18 16:50 Crossmatch See Detail 04/06/18 16:50
[2018-04-11] MEDS: Acetaminophen 325 MG TAB PO (20:28)
[2018-04-11] MEDS: Melatonin 3 MG TAB 6 MG PO (20:28)
[2018-04-11 22:15] LABS: Diff Comment Agrees w/ Instrument
[2018-04-12] VITALS (9 sets, daily range): BP systolic 117–137; BP diastolic 64–72; PULSE 72–79; RESP 2–20; TEMP 36.5–37.3; O2SAT 96–100
[2018-04-12] MEDS: Albuterol/Ipratropium 3 ML UPD VIAL UPD ×4 (00:07→17:39)
[2018-04-12] MEDS: Magnesium Oxide 400 MG TAB PO (08:37)
[2018-04-12] MEDS: Nystatin POWDER 60 GM JAR TP ×2 (08:38→21:27)
[2018-04-12] MEDS: guaiFENesin 600 MG TABCR PO ×2 (08:38→21:22)
[2018-04-12] MEDS: Carvedilol 3.125 MG TAB PO ×2 (08:38→21:23)
[2018-04-12] MEDS: Insulin Aspart 300 UNITS/3 ML PEN SC ×3 (08:39→17:12)
[2018-04-12] MEDS: Pantoprazole 40 MG TABCR PO ×2 (08:41→21:24)
--- NOTE | 2018-04-12 09:49 | CMPROGNOTE_ITS ---
- If Service Date Differs Date of service: 04/12/18 Time of Service: 09:49 Care Management Progress Note S/O:Drake will need a total of seven days IV antibiotics and transition to oral antibiotics for one more week. Negative blood cultures on 04/08/18 IV antibiotics will compete on 04/15/18. No changes in status today. Drake was placed back on neutropenic precautions. He will return to [facility] with new home health PT/OT when medically ready. A: Drake is a 78 year old male admitted with positive blood cultures, and CAP. P: Drake will return to [facility] when medically ready for discharge. He remains on IV antibiotics. He will transport back to [facility] via [facility] when he is ready. New home health services PT/OT and will need a face to face. CM to continue to provide support to patient ongoing discharge planning.
[2018-04-12] MEDS: Normal Saline Flush 10 ML SYR IVP (10:19)
[2018-04-12 11:15] LABS: Abs Immature Grans 0.01 k/cumm (0.0-0.09); HCT 27.1 % (40.0-50.0); HGB 9.1 g/dL (13.5-17.5); Mean Corp. HGB Concentration 33.6 g/dL (32.0-36.0); Mean Corpuscular Hemoglobin 29.6 pg (27.0-33.0); Mean Corpuscular Volume 88.3 fL (80-95); Mean Platelet Volume 11.1 fL (8.0-11.0); RBC 3.07 m/cumm (4.50-6.00); RBC Distribution Width 15.9 % (11.8-14.1)
[2018-04-12 11:24] LABS: Anion Gap 5.9 mmol/L (3-11); BUN 14 mg/dL (7-18); CO2 27.1 mmol/L (21.0-32.0); CREATININE 0.79 mg/dL (0.70-1.30); Calcium 7.5 mg/dL (8.5-10.1); Chloride 104 mmol/L (98-107); Glucose 193 mg/dL (70-100); Magnesium 1.8 mg/dL (1.8-2.4); Potassium 4.7 mmol/L (3.5-5.1); Sodium 137 mmol/L (136-145)
[2018-04-12 11:54] LABS: White Blood Cell Count 1.28 k/cumm (4.4-10.8)
[2018-04-12 11:55] LABS: Absolute Lymphocyte Count 0.24 k/cumm (1.2-3.4); Absolute Neutrophil Count 0.74 k/cumm (1.2-6.7); Atypical Lymphocytes % 2; Platelet Count 66 x1000/uL (130-400)
[2018-04-12 11:56] LABS: Absolute Eosinophil Count 0.08 k/cumm (0.0-0.7); Anisocytosis 1+; Diff Comment Manual Differential; Ovalocytes 2+; Polychromasia Present
[2018-04-12 11:57] LABS: Poikilocytes 1+
--- NOTE | 2018-04-12 12:26 | PT.INTREAT ---
Date of service: 04/12/18 Time of Service: 10:30 PT Notes Inpatient Physical Therapy Treatment Note [facility] Date: 04/12/18 PRECAUTIONS:Flu OBJECTIVE: Supine-sit: Min Assistx1 Sit-stand: CGA Stand-sit: CGA GAIT Assistive Device: FWW Weight bearing: Full Assist: CGA Distance: 30ftx2 rest 30ftx2 THEREX: Pt completed UE and LE ther ex as per flow sheet. Pt utilized the green tubing for his UE ther ex as per flow sheet. ASSESSMENT: Pt cont to be motivated for his PT. PLAN: Cont as per PT POC. TREATMENT CODE/TIME: 10:30-10:50 (20) TA
--- NOTE | 2018-04-12 17:47 | PGE_ITS ---
Date of Service Date of service: 04/12/18 Time of Service: 17:46 Assessment and Plan (1) Streptococcal bacteremia: Current visit: Yes Status: Acute Evidence of GBS on Blood Culture. Interestingly, also with a Coag Negative Staph speciated to Hominis, but cannot fully discount infection as patient's source thought secondary to Port (although with catheter tip cultures negative for growth). Patient is s/p Infusaport removal. Of note, patient also with clear initial CXR, but with development of bibasilar infiltrates on CXR the day following admission. Antibiotic regimen ultimately changed to Ceftriaxone to cover for both potential pneumonia as well as bacteremia, currently daily #5 of a planned 7 day course of IV, with transition to PO antibiotics for a week following. Last negative blood culture 04/08. (2) Diabetes mellitus, insulin dependent (IDDM), controlled: Current visit: Yes Status: Acute Continue sliding scale coverage and ADA diet. (3) Pancytopenia: Current visit: No Status: Chronic Noted, with transfusion dependent anemia. Apparently following with Hematology. Continue to monitor blood counts, especially WBC as Mr. Ren is becoming neutropenic again. Consider discussion with Hematology regarding potential Neupogen if needed. (4) CAP (community acquired pneumonia): Current visit: Yes Status: Acute As above. (5) DVT prophylaxis: Current visit: Yes Status: Acute SCDs and TEDs. Avoiding chemical prophylaxis given low platelet count and pancytopenia. Subjective Interval history since last seen: 78 year old man with a prior history of MGUS and Pancytopenia, with transfusion depended anemia and a chronic infusaport in place, admitted from [facility] due to onset of fevers, and eventual discovery of bacteremia. Mr. Ren is a chronic resident at [facility], and has a history of MGUS, Pancytopenia, and transfusion dependent anemia, for which he had an Infusaport in place. He also has a history of PD, cirrhosis of the liver, recent SBO, prior history of Prostate CA, and DM. He was brought to the ED via EMS with complaints of weakness and fevers. In the ED he was noted to be febrile to 38.8, with elevated lactate, and essentially negative work-up otherwise. Because the patient has a port in place, bacteremia was thought to be on the differential, and ultimately the patient grew both GBS and Staph Hominis on blood cultures necessitating removal of his port. His urinalysis and CXR were negative for infection, and a subsequent ECHO was negative for vegetation. Mr. Ren has no complaints today. He remains afebrile. Exam Narrative Exam Narrative: General: Patient appears comfortable, AAOX3, NAD Neck: Supple CV: Regular, nontachycardic, S1S2, No rubs, murmurs, or gallops. Pulmonary: Clear to auscultation bilaterally, no crackles, wheezing, or rhonchi Abdomen: + Bowel Sounds, soft, nontender, nondistended Vascular: Mild b/l lower extremity edema Psych: Normal mood and affect. Objective Objective Clinical Data: Abnormal lab results 04/12/18 04/12/18 Range/Units 10:57 10:57 WBC 1.28 L* (4.4-10.8) k/cumm RBC 3.07 L (4.50-6.00) m/cumm Hgb 9.1 L (13.5-17.5) g/dL Hct 27.1 L (40.0-50.0) % RDW 15.9 H (11.8-14.1) % Plt Count 66 L (130-400) x1000/uL MPV 11.1 H (8.0-11.0) fL Absolute Neutrophils 0.74 L (1.2-6.7) k/cumm Absolute Lymphocytes 0.24 L (1.2-3.4) k/cumm Glucose 193 H (70-100) mg/dL Calcium 7.5 L (8.5-10.1) mg/dL Vital Signs Temperature 37.1 C 04/12/18 11:36 Temperature Source Tympanic 04/12/18 11:36 Pulse 72 04/12/18 11:36 Pulse Rhythm Regular 04/12/18 11:09 Pulse 91 H 04/05/18 12:10 Respiratory Rate 18 04/12/18 11:36 Respiratory Effort 04/12/18 11:09 Respiratory Depth Normal 04/12/18 11:09 Respiratory Pattern Normal 04/12/18 11:09 Blood Pressure 137/71 04/12/18 11:36 Blood Pressure Mean 70 04/05/18 12:08 Blood Pressure Position Supine 04/05/18 08:18 Pulse Oximetry 99 04/12/18 11:36 Oxygen Delivery Method Room Air 04/12/18 11:36 Oxygen Flow Rate 0 04/12/18 11:36 Pain Level 0 04/12/18 11:36 Comment 04/08/18 23:15 Intake & Output 04/11/18 04/12/18 04/12/18 23:59 11:59 23:59 Intake Total 740 / 980 480 / 720 240 / 720 Output Total 290 / 715 850 / 1450 600 / 1450 Balance 450 / 265 -370 / -730 -360 / -730 Weight 95.7 kg Intake: IV 50 / 50 Oral 690 / 930 480 / 720 240 / 720 Output: Urine 290 / 715 850 / 1450 600 / 1450 Other: Urine Color Dark Vi Yellow Yellow Urine Appearance Clear Clear Clear Urine Odor None Normal Stool Size Large Stool Characteristics Soft Brown Voiding Methods Urinal Toilet Urinal Laboratory Results WBC 1.28 k/cumm (4.4-10.8) L* 04/12/18 10:57 RBC 3.07 m/cumm (4.50-6.00) L 04/12/18 10:57 Hgb 9.1 g/dL (13.5-17.5) L 04/12/18 10:57 Hct 27.1 % (40.0-50.0) L 04/12/18 10:57 MCV 88.3 fL (80-95) 04/12/18 10:57 MCH 29.6 pg (27.0-33.0) 04/12/18 10:57 MCHC 33.6 g/dL (32.0-36.0) 04/12/18 10:57 RDW 15.9 % (11.8-14.1) H 04/12/18 10:57 Plt Count 66 x1000/uL (130-400) L 04/12/18 10:57 MPV 11.1 fL (8.0-11.0) H 04/12/18 10:57 Immature Gran % See Differential 04/12/18 10:57 Neutrophils % 55.0 04/12/18 10:57 Band Neutrophils % 3.0 % 04/12/18 10:57 Lymphocytes % 17.0 04/12/18 10:57 Atypical Lymphs % 2 04/12/18 10:57 Monocytes % 16.0 04/12/18 10:57 Eosinophils % 6.0 04/12/18 10:57 Basophils % 0.0 04/12/18 10:57 Myelocytes % 1.0 % 04/12/18 10:57 Absolute Neutrophils 0.74 k/cumm (1.2-6.7) L 04/12/18 10:57 Absolute Lymphocytes 0.24 k/cumm (1.2-3.4) L 04/12/18 10:57 Absolute Monocytes 0.20 k/cumm (0.11-0.7) 04/12/18 10:57 Absolute Eosinophils 0.08 k/cumm (0.0-0.7) 04/12/18 10:57 Absolute Basophils 0.00 k/cumm (0.0-0.2) 04/12/18 10:57 Differential Comment Manual differential 04/12/18 10:57 RBC Morphology See below 04/12/18 10:57 Polychromasia Present 04/12/18 10:57 Hypochromasia 2+ 04/08/18 06:24 Poikilocytosis 1+ 04/12/18 10:57 Anisocytosis 1+ 04/12/18 10:57 Microcytosis 2+ 04/11/18 06:20 Macrocytosis 1+ 04/08/18 06:24 Ovalocytes 2+ 04/12/18 10:57 PT 12.8 sec (9.3-11.0) H 04/07/18 06:35 INR 1.3 (0.9-1.1) H 04/07/18 06:35 Sodium 137 mmol/L (136-145) 04/12/18 10:57 Potassium 4.7 mmol/L (3.5-5.1) 04/12/18 10:57 Chloride 104 mmol/L (98-107) 04/12/18 10:57 Carbon Dioxide 27.1 mmol/L (21.0-32.0) 04/12/18 10:57 Anion Gap 5.9 mmol/L (3-11) 04/12/18 10:57 BUN 14 mg/dL (7-18) 04/12/18 10:57 Creatinine 0.79 mg/dL (0.70-1.30) 04/12/18 10:57 Estimated GFR/1.73 m2 >= 60.00 (mL/min/1.73m2) 04/12/18 10:57 Glucose 193 mg/dL (70-100) H 04/12/18 10:57 Lactate 1.9 mmol/L (0.6-1.4) H 04/05/18 08:35 Calcium 7.5 mg/dL (8.5-10.1) L 04/12/18 10:57 Magnesium 1.8 mg/dL (1.8-2.4) 04/12/18 10:57 Total Bilirubin 0.7 mg/dL (0.2-1.0) 04/10/18 06:54 Conjugated Bilirubin 0.30 mg/dL (0.00-0.20) H 04/10/18 06:54 AST 32 U/L (15-37) 04/10/18 06:54 ALT < 6 U/L (12-78) L 04/10/18 06:54 Alkaline Phosphatase 152 U/L (46-116) H 04/10/18 06:54 C-Reactive Protein 0.93 mg/dL (0.0-0.3) H 04/10/18 06:54 Total Protein 6.4 g/dL (6.4-8.2) 04/10/18 06:54 Albumin 2.4 g/dL (3.4-5.0) L 04/10/18 06:54 Urine Color Dark yellow (Yellow) 04/05/18 09:41 Urine Clarity Sl cloudy 04/05/18 09:41 Urine pH >= 9.0 (5-8) H 04/05/18 09:41 Ur Specific [place] 1.015 (1.005-1.025) 04/05/18 09:41 Urine Protein 100 mg/dL (Negative) H 04/05/18 09:41 Urine Ketones Trace mg/dL (Negative) H 04/05/18 09:41 Urine Blood Large (Negative) H 04/05/18 09:41 Urine Nitrite Negative (Negative) 04/05/18 09:41 Urine Bilirubin Small (Negative) H 04/05/18 09:41 Urine Urobilinogen >=8.0 EU/dL (Up TO 0.2) 04/05/18 09:41 Ur Leukocyte Esterase Negative (Negative) 04/05/18 09:41 Urine RBC >50 (0-2) H 04/05/18 09:41 Urine WBC 3-5 HPF (0-5) 04/05/18 09:41 Ur Epithelial Cells Negative HPF (Negative) 04/05/18 09:41 Urine Crystals Negative HPF (Negative) 04/05/18 09:41 Urine Bacteria Negative HPF (Negative) 04/05/18 09:41 Urine Casts Negative LPF (Negative) 04/05/18 09:41 Urine Mucus Trace (Negative) 04/05/18 09:41 Urine Other Few renal (Negative) 04/05/18 09:41 Ur Culture Indicated? No 04/05/18 09:41 Urine Glucose 100 mg/dL (Negative) 04/05/18 09:41 Specimen Type nasopharyngeal 04/05/18 11:30 Influenza Type A RNA Negative (Negative) 04/05/18 11:30 Influenza Type B RNA Negative (Negative) 04/05/18 11:30 RSV RNA Qual (PCR) Negative (Negative) 04/05/18 11:30 Patient ABO/Rh O Positive 04/06/18 16:50 Antibody Screen Positive 04/06/18 16:50 Antibody Identification Anti-E 04/06/18 16:50 Crossmatch See Detail 04/06/18 16:50
[2018-04-12] MEDS: Melatonin 3 MG TAB 6 MG PO (21:21)
[2018-04-12] MEDS: Acetaminophen 325 MG TAB PO (21:28)
[2018-04-13] VITALS (11 sets, daily range): BP systolic 124–151; BP diastolic 54–75; PULSE 68–97; RESP 1–20; TEMP 36.2–37.5; O2SAT 96–99
[2018-04-13] MEDS: Albuterol/Ipratropium 3 ML UPD VIAL UPD ×4 (00:18→23:15)
[2018-04-13 08:00] LABS: Abs Immature Grans 0.02 k/cumm (0.0-0.09); Absolute Basophil Count 0.01 k/cumm (0.0-0.2); Absolute Eosinophil Count 0.13 k/cumm (0.0-0.7); Absolute Monocyte Count 0.18 k/cumm (0.11-0.7); Absolute Neutrophil Count 1.16 k/cumm (1.2-6.7); Basophils % 0.6; Eosinophils % 7.2; HCT 28.3 % (40.0-50.0); HGB 9.5 g/dL (13.5-17.5); Immature Grans % 1.1; Lymphocytes % 16.7; Mean Corp. HGB Concentration 33.6 g/dL (32.0-36.0); Mean Corpuscular Hemoglobin 29.5 pg (27.0-33.0); Mean Corpuscular Volume 87.9 fL (80-95); Mean Platelet Volume 10.7 fL (8.0-11.0); Neutrophils % 64.4; RBC 3.22 m/cumm (4.50-6.00); RBC Distribution Width 15.8 % (11.8-14.1)
[2018-04-13 08:10] LABS: Anion Gap 7.6 mmol/L (3-11); BUN 14 mg/dL (7-18); CO2 25.4 mmol/L (21.0-32.0); CREATININE 0.82 mg/dL (0.70-1.30); Calcium 7.8 mg/dL (8.5-10.1); Chloride 106 mmol/L (98-107); Glucose 156 mg/dL (70-100); Magnesium 1.7 mg/dL (1.8-2.4); Potassium 4.5 mmol/L (3.5-5.1); Sodium 139 mmol/L (136-145)
[2018-04-13] MEDS: Insulin Aspart 300 UNITS/3 ML PEN SC ×4 (08:25→21:14)
[2018-04-13] MEDS: guaiFENesin 600 MG TABCR PO ×2 (08:25→20:41)
[2018-04-13] MEDS: Pantoprazole 40 MG TABCR PO ×2 (08:25→20:42)
[2018-04-13] MEDS: Magnesium Oxide 400 MG TAB PO ×2 (08:25→11:18)
[2018-04-13] MEDS: Carvedilol 3.125 MG TAB PO ×2 (08:25→20:41)
[2018-04-13] MEDS: Nystatin POWDER 60 GM JAR TP (08:26)
[2018-04-13 08:31] LABS: Anisocytosis 2+; Diff Comment Diff Reviewed; Platelet Count 74 x1000/uL (130-400)
[2018-04-13 08:32] LABS: Ovalocytes 2+; Poikilocytes 2+; Polychromasia Present
--- NOTE | 2018-04-13 10:16 | OT.INTREAT ---
Date of service: 04/13/18 Time of Service: 07:50 Occupational Therapy Notes Occupational Therapy Inpatient Treatment Note Date: 04/13/18 PRECAUTIONS: Fall, Standard SUBJECTIVE: Pt was sitting in wheelchair when OT arrived. He states that he was washed up prior to OT entering and is agreeable to OT session. OBJECTIVE: PAIN:no c/o pain FUNCTIONAL MOBILITY Sit-stand: SBA, FWW Stand-sit: CGA, FWW Bed-Chair: CGA, FWW Chair-bed: CGA, FWW DRESSING: Upper Extremity: Sitting in chair (I) with donning and doffing street clothes Lower Extremity: Sitting in chair (I) don and doff (B) shoes and socks, min vc and CGA when pt stood up with FWW to pull up pants for street clothes. TOILETING: Pt demonstrated transfer from wheelchair to toilet with good technique requiring min vc throughout for hand positioning and body mechanics. ASSESSMENT: Pt is demonstrating increased (I) in ADL routines he presents with decreased functional activity tolerance and is unable to perform standing ADLs at the sink for long periods of time. Pt would benefit from continued skilled OT intervention for progression of standing ADLs and increased functional activity tolerance. PLAN: Progression of standing ADLs for bathing and dressing. TREATMENT CODES/TIME: 53561x3, 27 minutes (07:50) Ashley Butcher OTR/[facility]
--- NOTE | 2018-04-13 10:23 | OTTR_ITS ---
Date of service: 04/13/18 Time of Service: 07:50 Occupational Therapy Notes Occupational Therapy Inpatient Treatment Note Date: 04/13/18 PRECAUTIONS: Fall, Standard SUBJECTIVE: Pt was sitting in wheelchair when OT arrived. He states that he was washed up prior to OT entering and is agreeable to OT session. OBJECTIVE: PAIN:no c/o pain FUNCTIONAL MOBILITY Sit-stand: SBA, FWW Stand-sit: CGA, FWW Bed-Chair: CGA, FWW Chair-bed: CGA, FWW DRESSING: Upper Extremity: Sitting in chair (I) with donning and doffing street clothes Lower Extremity: Sitting in chair (I) don and doff (B) shoes and socks, min vc and CGA when pt stood up with FWW to pull up pants for street clothes. TOILETING: Pt demonstrated transfer from wheelchair to toilet with good technique requiring min vc throughout for hand positioning and body mechanics. ASSESSMENT: Pt is demonstrating increased (I) in ADL routines he presents with decreased functional activity tolerance and is unable to perform standing ADLs at the sink for long periods of time. Pt would benefit from continued skilled OT intervention for progression of standing ADLs and increased functional activity tolerance. PLAN: Progression of standing ADLs for bathing and dressing. TREATMENT CODES/TIME: [id number], 27 minutes (07:50) Ashley Butcher OTR/[facility]
--- NOTE | 2018-04-13 11:51 | PDOC.CMPRO ---
- If Service Date Differs Date of service: 04/13/18 Time of Service: 11:51 Care Management Progress Note S/O:Drake is sitting up in the chair he is alert and engaged in assessment. He is dressed in his own clothes he states he was able to walk well with PT today. He plans on returning back to the [facility] when his antibiotics are complete. He will need RCT scheduled for pharmacy stop and return home at time of discharge. A: Drake is a 78 year old male admitted with positive blood cultures, and CAP. P: Drake will return to [facility] when medically ready for discharge. He remains on IV antibiotics. He will transport back to [facility] via [facility] when he is ready. New home health services nursing, PT/OT and will need a face to face. CM to continue to provide support to patient ongoing discharge planning.
--- NOTE | 2018-04-13 12:19 | PT.INPN ---
Date of service: 04/13/18 Time of Service: 10:45 PT Notes Date: 04/13/18 Referring Doctor: Dr. Treva Huff PT Orders: PT CONSULT: eval and treat Precautions: Fall, contact Treatment Dates: 04/06/18 - 04/13/18 Patient Profile/Admitting Diagnosis: Patient admitted April 05 with complaints of fever and weakness. He was found to have influenza, and was subsequently admitted. He's participated in PT intervention 1-2x/day for 8 days, with a total of 11 sessions. PMHX: Parkinson's disease; DM; pancytopenia; liver cirrhosis; MGUS; GERD; hypertension Social History/Home Situation: Patient lives at the [facility] in an elevator accessible apartment. He has multiple assistive devices, stating that he typically gets around in a power chair. He occasionally uses a manual chair, and perform short distance ambulation with either an FW W or 4 WW. He has historically participated in an outpatient group exercise program, although states that he has not been in a few weeks. Current Functional Limitations: Patient reports significant weakness Equipment Owned/DME: Power chair, manual chair, FW W, 4 WW, handicap accessible apartment with elevator Subjective: Drake states that he is feeling quite a lot better. He was able to walk out into the cueva yesterday with nursing, and feels as though his walking is improving. Objective: General Observation: Resting in chair with IV to left UE. Mental Status: A and O x3 Pain: Denies ROM: Right Upper Extremity: WFL Left Upper Extremity: WFL Right Lower Extremity: WFL Left Lower Extremity: WFL Strength: Right Upper Extremity: Shoulder flexion 4+/5. Biceps 4+/5. Triceps 4+/5. Podiatry Doctor is strong and equal. Left Upper Extremity: Shoulder flexion 4+/5. Biceps 4+/5. Triceps 4+/5. Podiatry Doctor is strong and equal. Right Lower Extremity: Hip flexion 4+/5. Quads 4/5. Hamstrings 4/5. Ankle dorsiflexion 5/5. Left Lower Extremity: Hip flexion 4+/5. Quads 4/5. Hamstrings 4/5. Ankle dorsiflexion 5/5. Sensation: Patient lacks sensation to light touch through the plantar aspect of both feet Bed Mobility/Transfers: Supine to sit: Supervision Sit to supine: Supervision Sit to stand: Supervision Stand to sit: Supervision Bed to chair: CG, FW W Gait: Patient ambulates 100 feet x 2 with FW W, contact-guard. He demonstrates significantly improved gait mechanics versus previous visits, with step through gait pattern and improved foot clearance. Balance: Static Sitting: Normal Dynamic Sitting: Normal Static Standing: Good Dynamic Standing: Fair Informed Consent/Education: Patient instructed in purpose of PT consult and plan of care. Treatment: Today's session consisted of re-evaluation, followed by instruction in a therapeutic exercise program. This was advanced to include static balance activities, and resisted upper extremity strengthening with 3 pound weight. All activities can be found noted on flowsheet. Assessment: Patient is a 78 year old male referred to physical therapy services with the diagnosis of influenza. Patient presents with clinical signs and symptoms consistent with diagnosis, with associated mobility deficits. He has demonstrated significant improvements in mobility over the past few days. He requires continued PT intervention to maximize mobility and safety prior to transition back to independent living. Goals: Goals X1 week 1. Supine-Sit: Supervision (MET) 2. Sit-Supine: Supervision(MET) 3. Sit-Stand : Supervision(MET) 4. Stand-Sit : Supervision(MET) 5. Bed-Chair: Supervision with FW W (PROGRESSING TOWARD) 6. Chair-Bed : Supervision with FW W(PROGRESSING TOWARD) 7. Gait : Supervision with FW W times 50 feet(PROGRESSING TOWARD) Plan of Care/Treatment Plan: 1-2x/day, 7 days/week x 1 week. Plan of care has been reviewed with the STUCCO PLASTERER providing the service under Physical Therapy direction. Initiate Physical Therapy intervention for strengthening, bed mobility, transfers, gait, stairs, balance training, use of assistive device. DISCHARGE RECOMMENDATIONS: Anticipate the patient will be able to return to his apartment at the [facility] without equipment needs. Will recommend return to his group exercise program, which he has completed for some time. TREATMENT CODE/TIME: [id number] ([id number]) María Elena Patel, PT, DPT [facility]
--- NOTE | 2018-04-13 12:24 | INPN_ITS ---
Date of service: 04/13/18 Time of Service: 10:45 PT Notes Date: 04/13/18 Referring Doctor: Dr. Treva Huff PT Orders: PT CONSULT: eval and treat Precautions: Fall, contact Treatment Dates: 04/06/18 - 04/13/18 Patient Profile/Admitting Diagnosis: Patient admitted April 05 with complaints of fever and weakness. He was found to have influenza, and was subsequently admitted. He's participated in PT intervention 1-2x/day for 8 days, with a total of 11 sessions. PMHX: Parkinson's disease; DM; pancytopenia; liver cirrhosis; MGUS; GERD; hypertension Social History/Home Situation: Patient lives at the [facility] in an elevator accessible apartment. He has multiple assistive devices, stating that he typically gets around in a power chair. He occasionally uses a manual chair, and perform short distance ambulation with either an FW W or 4 WW. He has historically participated in an outpatient group exercise program, although states that he has not been in a few weeks. Current Functional Limitations: Patient reports significant weakness Equipment Owned/DME: Power chair, manual chair, FW W, 4 WW, handicap accessible apartment with elevator Subjective: Drake states that he is feeling quite a lot better. He was able to walk out into the cueva yesterday with nursing, and feels as though his walking is improving. Objective: General Observation: Resting in chair with IV to left UE. Mental Status: A and O x3 Pain: Denies ROM: Right Upper Extremity: WFL Left Upper Extremity: WFL Right Lower Extremity: WFL Left Lower Extremity: WFL Strength: Right Upper Extremity: Shoulder flexion 4+/5. Biceps 4+/5. Triceps 4+/5. Shotgun Shell Assembly Machine Operator is strong and equal. Left Upper Extremity: Shoulder flexion 4+/5. Biceps 4+/5. Triceps 4+/5. Shotgun Shell Assembly Machine Operator is strong and equal. Right Lower Extremity: Hip flexion 4+/5. Quads 4/5. Hamstrings 4/5. Ankle dorsiflexion 5/5. Left Lower Extremity: Hip flexion 4+/5. Quads 4/5. Hamstrings 4/5. Ankle dorsiflexion 5/5. Sensation: Patient lacks sensation to light touch through the plantar aspect of both feet Bed Mobility/Transfers: Supine to sit: Supervision Sit to supine: Supervision Sit to stand: Supervision Stand to sit: Supervision Bed to chair: CG, FW W Gait: Patient ambulates 100 feet x 2 with FW W, contact-guard. He demonstrates significantly improved gait mechanics versus previous visits, with step through gait pattern and improved foot clearance. Balance: Static Sitting: Normal Dynamic Sitting: Normal Static Standing: Good Dynamic Standing: Fair Informed Consent/Education: Patient instructed in purpose of PT consult and plan of care. Treatment: Today's session consisted of re-evaluation, followed by instruction in a therapeutic exercise program. This was advanced to include static balance activities, and resisted upper extremity strengthening with 3 pound weight. All activities can be found noted on flowsheet. Assessment: Patient is a 78 year old male referred to physical therapy services with the diagnosis of influenza. Patient presents with clinical signs and symptoms consistent with diagnosis, with associated mobility deficits. He has demonstrated significant improvements in mobility over the past few days. He requires continued PT intervention to maximize mobility and safety prior to transition back to independent living. Goals: Goals X1 week 1. Supine-Sit: Supervision (MET) 2. Sit-Supine: Supervision(MET) 3. Sit-Stand : Supervision(MET) 4. Stand-Sit : Supervision(MET) 5. Bed-Chair: Supervision with FW W (PROGRESSING TOWARD) 6. Chair-Bed : Supervision with FW W(PROGRESSING TOWARD) 7. Gait : Supervision with FW W times 50 feet(PROGRESSING TOWARD) Plan of Care/Treatment Plan: 1-2x/day, 7 days/week x 1 week. Plan of care has been reviewed with the FIRE EATER providing the service under Physical Therapy direction. Initiate Physical Therapy intervention for strengthening, bed mobility, transfers, gait, stairs, balance training, use of assistive device. DISCHARGE RECOMMENDATIONS: Anticipate the patient will be able to return to his apartment at the [facility] without equipment needs. Will recommend return to his group exercise program, which he has completed for some time. TREATMENT CODE/TIME: [id number] ([id number], [id number]) María Elena Patel, PT, DPT [facility]
[2018-04-13] MEDS: Normal Saline Flush 10 ML SYR IVP (13:55)
--- NOTE | 2018-04-13 15:59 | PT.INTREAT ---
Date of service: 04/13/18 Time of Service: 15:59 PT Notes 04/13/18 SUBJECTIVE: Drake stating he is feeling much steadier on his feet. He is hoping to return home tomorrow. OBJECTIVE: Session # 2 TRANSFERS Sit to stand: S Stand to sit: S GAIT Device: FWW Weight bearing: Full Assist: CGA Distance: 100'x2 THEREX: Standing in seated strengthening exercises performed as noted on flow sheet. Also work on small VEDA balance activities. See flow sheet for details. ASSESSMENT: Great gains in his mobility noted today with no LOB or posterior lean with gait. Progressing well with his strength and endurance. PLAN: Continue current POC progressing towards established goals. Session #2: 1:30-2:55 [id number] Mena Kinney, SHIPPING AND RECEIVING SUPERVISOR
--- NOTE | 2018-04-13 18:44 | W.PM.PROGNOT ---
Date of Service Date of service: 04/13/18 Time of Service: 18:45 Assessment and Plan (1) Streptococcal bacteremia: Current visit: Yes Status: Acute Evidence of GBS on Blood Culture. Interestingly, also with a Coag Negative Staph speciated to Hominis, but cannot fully discount infection as patient's source thought secondary to Port (although with catheter tip cultures negative for growth). Patient is s/p Infusaport removal. Of note, patient also with clear initial CXR, but with development of bibasilar infiltrates on CXR the day following admission. Antibiotic regimen ultimately changed to Ceftriaxone to cover for both potential pneumonia as well as bacteremia, currently daily #5 of a planned 7 day course of IV, with transition to PO antibiotics for a week following. Last negative blood culture 04/08. (2) Diabetes mellitus, insulin dependent (IDDM), controlled: Current visit: Yes Status: Acute Continue sliding scale coverage and ADA diet. (3) Pancytopenia: Current visit: No Status: Chronic Noted, with transfusion dependent anemia. Apparently following with Hematology. Continue to monitor blood counts, especially WBC as Mr. Ren is becoming neutropenic again. Consider discussion with Hematology regarding potential Neupogen if needed. (4) CAP (community acquired pneumonia): Current visit: Yes Status: Acute As above. (5) DVT prophylaxis: Current visit: Yes Status: Acute SCDs and TEDs. Avoiding chemical prophylaxis given low platelet count and pancytopenia. Subjective Interval history since last seen: 78 year old man with a prior history of MGUS and Pancytopenia, with transfusion depended anemia and a chronic infusaport in place, admitted from [facility] due to onset of fevers, and eventual discovery of bacteremia. Mr. Ren is a chronic resident at [facility], and has a history of MGUS, Pancytopenia, and transfusion dependent anemia, for which he had an Infusaport in place. He also has a history of PD, cirrhosis of the liver, recent SBO, prior history of Prostate CA, and DM. He was brought to the ED via EMS with complaints of weakness and fevers. In the ED he was noted to be febrile to 38.8, with elevated lactate, and essentially negative work-up otherwise. Because the patient has a port in place, bacteremia was thought to be on the differential, and ultimately the patient grew both GBS and Staph Hominis on blood cultures necessitating removal of his port. His urinalysis and CXR were negative for infection, and a subsequent ECHO was negative for vegetation. Mr. Ren has no complaints today. He remains afebrile. Exam Narrative Exam Narrative: General: Patient appears comfortable, AAOX3, NAD Neck: Supple CV: Regular, nontachycardic, S1S2, No rubs, murmurs, or gallops. Pulmonary: Clear to auscultation bilaterally, no crackles, wheezing, or rhonchi Abdomen: + Bowel Sounds, soft, nontender, nondistended Vascular: Mild b/l lower extremity edema Psych: Normal mood and affect. Objective Objective Clinical Data: Abnormal lab results 04/13/18 04/13/18 Range/Units 07:45 07:45 WBC 1.80 L* D (4.4-10.8) k/cumm RBC 3.22 L (4.50-6.00) m/cumm Hgb 9.5 L (13.5-17.5) g/dL Hct 28.3 L (40.0-50.0) % RDW 15.8 H (11.8-14.1) % Plt Count 74 L (130-400) x1000/uL Absolute Neutrophils 1.16 L (1.2-6.7) k/cumm Absolute Lymphocytes 0.30 L (1.2-3.4) k/cumm Glucose 156 H (70-100) mg/dL Calcium 7.8 L (8.5-10.1) mg/dL Magnesium 1.7 L (1.8-2.4) mg/dL Vital Signs Temperature 36.5 C 04/13/18 16:02 Temperature Source Skin 04/13/18 16:02 Pulse 68 04/13/18 16:02 Pulse Rhythm Regular 04/13/18 09:03 Pulse 91 H 04/05/18 12:10 Respiratory Rate 19 04/13/18 16:02 Respiratory Effort 04/13/18 09:03 Respiratory Depth Normal 04/13/18 09:03 Respiratory Pattern Normal 04/13/18 09:03 Blood Pressure 151/75 H 04/13/18 16:02 Blood Pressure Mean 70 04/05/18 12:08 Blood Pressure Position Supine 04/05/18 08:18 Pulse Oximetry 99 04/13/18 16:02 Oxygen Delivery Method Room Air 04/13/18 16:02 Oxygen Flow Rate 0 04/13/18 16:02 Pain Level 6 04/12/18 21:28 Comment 04/08/18 23:15 Intake & Output 04/12/18 04/13/18 04/13/18 23:59 11:59 23:59 Intake Total 530 / 1210 450 / 940 490 / 940 Output Total 1300 / 2150 600 / 1375 775 / 1375 Balance -770 / -940 -150 / -435 -285 / -435 Weight 94.1 kg Intake: IV 50 / 50 Oral 480 / 1160 450 / 940 490 / 940 Output: Urine 1300 / 2150 600 / 1375 775 / 1375 Other: Urine Color Yellow Yellow Straw Urine Appearance Clear Clear Clear Urine Odor Normal Normal Stool Size Moderate Small Moderate Stool Characteristics Soft Soft Soft Formed Formed Formed Brown Brown Brown Voiding Methods Urinal Bedside Commode Urinal Laboratory Results WBC 1.80 k/cumm (4.4-10.8) L* D 04/13/18 07:45 RBC 3.22 m/cumm (4.50-6.00) L 04/13/18 07:45 Hgb 9.5 g/dL (13.5-17.5) L 04/13/18 07:45 Hct 28.3 % (40.0-50.0) L 04/13/18 07:45 MCV 87.9 fL (80-95) 04/13/18 07:45 MCH 29.5 pg (27.0-33.0) 04/13/18 07:45 MCHC 33.6 g/dL (32.0-36.0) 04/13/18 07:45 RDW 15.8 % (11.8-14.1) H 04/13/18 07:45 Plt Count 74 x1000/uL (130-400) L 04/13/18 07:45 MPV 10.7 fL (8.0-11.0) 04/13/18 07:45 Immature Gran % 1.1 04/13/18 07:45 Neutrophils % 64.4 04/13/18 07:45 Band Neutrophils % 3.0 % 04/12/18 10:57 Lymphocytes % 16.7 04/13/18 07:45 Atypical Lymphs % 2 04/12/18 10:57 Monocytes % 10.0 04/13/18 07:45 Eosinophils % 7.2 04/13/18 07:45 Basophils % 0.6 04/13/18 07:45 Myelocytes % 1.0 % 04/12/18 10:57 Absolute Neutrophils 1.16 k/cumm (1.2-6.7) L 04/13/18 07:45 Absolute Lymphocytes 0.30 k/cumm (1.2-3.4) L 04/13/18 07:45 Absolute Monocytes 0.18 k/cumm (0.11-0.7) 04/13/18 07:45 Absolute Eosinophils 0.13 k/cumm (0.0-0.7) 04/13/18 07:45 Absolute Basophils 0.01 k/cumm (0.0-0.2) 04/13/18 07:45 Differential Comment Diff reviewed 04/13/18 07:45 RBC Morphology See below 04/13/18 07:45 Polychromasia Present 04/13/18 07:45 Hypochromasia 2+ 04/08/18 06:24 Poikilocytosis 2+ 04/13/18 07:45 Anisocytosis 2+ 04/13/18 07:45 Microcytosis 2+ 04/11/18 06:20 Macrocytosis 1+ 04/08/18 06:24 Ovalocytes 2+ 04/13/18 07:45 PT 12.8 sec (9.3-11.0) H 04/07/18 06:35 INR 1.3 (0.9-1.1) H 04/07/18 06:35 Sodium 139 mmol/L (136-145) 04/13/18 07:45 Potassium 4.5 mmol/L (3.5-5.1) 04/13/18 07:45 Chloride 106 mmol/L (98-107) 04/13/18 07:45 Carbon Dioxide 25.4 mmol/L (21.0-32.0) 04/13/18 07:45 Anion Gap 7.6 mmol/L (3-11) 04/13/18 07:45 BUN 14 mg/dL (7-18) 04/13/18 07:45 Creatinine 0.82 mg/dL (0.70-1.30) 04/13/18 07:45 Estimated GFR/1.73 m2 >= 60.00 (mL/min/1.73m2) 04/13/18 07:45 Glucose 156 mg/dL (70-100) H 04/13/18 07:45 Lactate 1.9 mmol/L (0.6-1.4) H 04/05/18 08:35 Calcium 7.8 mg/dL (8.5-10.1) L 04/13/18 07:45 Magnesium 1.7 mg/dL (1.8-2.4) L 04/13/18 07:45 Total Bilirubin 0.7 mg/dL (0.2-1.0) 04/10/18 06:54 Conjugated Bilirubin 0.30 mg/dL (0.00-0.20) H 04/10/18 06:54 AST 32 U/L (15-37) 04/10/18 06:54 ALT < 6 U/L (12-78) L 04/10/18 06:54 Alkaline Phosphatase 152 U/L (46-116) H 04/10/18 06:54 C-Reactive Protein 0.93 mg/dL (0.0-0.3) H 04/10/18 06:54 Total Protein 6.4 g/dL (6.4-8.2) 04/10/18 06:54 Albumin 2.4 g/dL (3.4-5.0) L 04/10/18 06:54 Urine Color Dark yellow (Yellow) 04/05/18 09:41 Urine Clarity Sl cloudy 04/05/18 09:41 Urine pH >= 9.0 (5-8) H 04/05/18 09:41 Ur Specific [place] 1.015 (1.005-1.025) 04/05/18 09:41 Urine Protein 100 mg/dL (Negative) H 04/05/18 09:41 Urine Ketones Trace mg/dL (Negative) H 04/05/18 09:41 Urine Blood Large (Negative) H 04/05/18 09:41 Urine Nitrite Negative (Negative) 04/05/18 09:41 Urine Bilirubin Small (Negative) H 04/05/18 09:41 Urine Urobilinogen >=8.0 EU/dL (Up TO 0.2) 04/05/18 09:41 Ur Leukocyte Esterase Negative (Negative) 04/05/18 09:41 Urine RBC >50 (0-2) H 04/05/18 09:41 Urine WBC 3-5 HPF (0-5) 04/05/18 09:41 Ur Epithelial Cells Negative HPF (Negative) 04/05/18 09:41 Urine Crystals Negative HPF (Negative) 04/05/18 09:41 Urine Bacteria Negative HPF (Negative) 04/05/18 09:41 Urine Casts Negative LPF (Negative) 04/05/18 09:41 Urine Mucus Trace (Negative) 04/05/18 09:41 Urine Other Few renal (Negative) 04/05/18 09:41 Ur Culture Indicated? No 04/05/18 09:41 Urine Glucose 100 mg/dL (Negative) 04/05/18 09:41 Specimen Type nasopharyngeal 04/05/18 11:30 Influenza Type A RNA Negative (Negative) 04/05/18 11:30 Influenza Type B RNA Negative (Negative) 04/05/18 11:30 RSV RNA Qual (PCR) Negative (Negative) 04/05/18 11:30 Patient ABO/Rh O Positive 04/06/18 16:50 Antibody Screen Positive 04/06/18 16:50 Antibody Identification Anti-E 04/06/18 16:50 Crossmatch See Detail 04/06/18 16:50
[2018-04-13] MEDS: Acetaminophen 325 MG TAB PO (20:51)
[2018-04-13] MEDS: Melatonin 3 MG TAB 6 MG PO (21:14)
[2018-04-14] VITALS (8 sets, daily range): BP systolic 130–159; BP diastolic 64–85; PULSE 73–78; RESP 1–20; TEMP 36.2–37.5; O2SAT 96–99
--- NOTE | 2018-04-14 01:19 | NUR.NOTE ---
Nursing Note: Pt called staff for assistance in voiding even just at the edge of the bed. His concern is his midline that no blood return for few days already. Pt stated that he will refused his blood draw in am. Verbalized of going back home tomorrow and wants to get med lists. Rest assured that he will be getting it prior to discharge.
[2018-04-14] MEDS: Albuterol/Ipratropium 3 ML UPD VIAL UPD (05:11)
--- NOTE | 2018-04-14 07:22 | NUR.NOTE ---
Pt refusing to allow lab draws at this time. Nursing Note:
[2018-04-14 07:28] LABS: Anion Gap 6.1 mmol/L (3-11); BUN 13 mg/dL (7-18); CO2 26.9 mmol/L (21.0-32.0); CREATININE 0.77 mg/dL (0.70-1.30); Calcium 8.1 mg/dL (8.5-10.1); Chloride 106 mmol/L (98-107); Glucose 155 mg/dL (70-100); Magnesium 1.8 mg/dL (1.8-2.4); Potassium 4.3 mmol/L (3.5-5.1); Sodium 139 mmol/L (136-145)
[2018-04-14 07:37] LABS: Abs Immature Grans 0.01 k/cumm (0.0-0.09); Absolute Basophil Count 0.01 k/cumm (0.0-0.2); Absolute Eosinophil Count 0.08 k/cumm (0.0-0.7); Absolute Lymphocyte Count 0.21 k/cumm (1.2-3.4); Absolute Monocyte Count 0.12 k/cumm (0.11-0.7); Absolute Neutrophil Count 0.93 k/cumm (1.2-6.7); Basophils % 0.7; Eosinophils % 5.9; HCT 26.4 % (40.0-50.0); HGB 8.7 g/dL (13.5-17.5); Immature Grans % 0.7; Lymphocytes % 15.4; Mean Platelet Volume 10.8 fL (8.0-11.0); Monocytes % 8.8; Neutrophils % 68.5; RBC Distribution Width 15.7 % (11.8-14.1)
[2018-04-14 07:59] LABS: Platelet Count 66 x1000/uL (130-400); White Blood Cell Count 1.36 k/cumm (4.4-10.8)
[2018-04-14 08:00] LABS: Diff Comment Diff Reviewed; Ovalocytes 2+; Polychromasia Present
[2018-04-14] MEDS: Carvedilol 3.125 MG TAB PO ×2 (08:24→20:30)
[2018-04-14] MEDS: Magnesium Oxide 400 MG TAB PO (08:24)
[2018-04-14] MEDS: Insulin Aspart 300 UNITS/3 ML PEN SC ×3 (08:24→17:04)
[2018-04-14] MEDS: guaiFENesin 600 MG TABCR PO ×2 (08:25→20:34)
[2018-04-14] MEDS: Pantoprazole 40 MG TABCR PO ×2 (08:25→20:34)
[2018-04-14] MEDS: Nystatin POWDER 60 GM JAR TP ×2 (08:26→20:28)
--- NOTE | 2018-04-14 09:07 | PDOC.CMPRO ---
- If Service Date Differs Date of service: 04/14/18 Time of Service: 09:07 Care Management Progress Note S/O: Drake is reclined in his chair watching TV when this typewriter mechanic visits this afternoon. Drake states that he is upset that he will have to stay another night, as he was looking forward to having someone buy him a [employer] lottery ticket. Drake states that he is hopeful for a DC home tomorrow, and states that he will need RCT to stop at the pharmacy and the grocery store prior to bringing him home to the [facility]. Drake also states that he would like to be discharged prior to noon, as the [facility] has [employer] games tomorrow. A: Drake is a 78 year old male admitted with positive blood cultures, and CAP. P: Drake will return to [facility] when medically ready for discharge. He remains on IV antibiotics. He will transport back to [facility] via RCT when he is ready. New home health services nursing, PT/OT and will need a face to face. CM to continue to provide support to patient ongoing discharge planning.
--- NOTE | 2018-04-14 09:11 | CMPROGNOTE_ITS ---
- If Service Date Differs Date of service: 04/14/18 Time of Service: 09:07 Care Management Progress Note S/O: Drake is reclined in his chair watching TV when this grant writer visits this afternoon. Drake states that he is upset that he will have to stay another night, as he was looking forward to having someone buy him a [employer] lottery ticket. Drake states that he is hopeful for a DC home tomorrow, and states that he will need RCT to stop at the pharmacy and the grocery store prior to bringing him home to the [facility]. Drake also states that he would like to be discharged prior to noon, as the [facility] has [email or web address] games tomorrow. A: Drake is a 78 year old male admitted with positive blood cultures, and CAP. P: Drake will return to [facility] when medically ready for discharge. He remains on IV antibiotics. He will transport back to [facility] via RCT when he is ready. New home health services nursing, PT/OT and will need a face to face. CM to continue to provide support to patient ongoing discharge planning.
--- NOTE | 2018-04-14 10:42 | OT.INDS ---
Date of service: 04/14/18 Time of Service: 07:48 Occupational Therapy Notes Occupational Therapy Inpatient Discharge Summary Dates of Service: 04/06/18-04/14/18 Date: 04/14/18 Referring Doctor:Treva Huff MD OT Orders: Eval and treat Precautions: Fall, Contact PATIENT PROFILE/ADMITTING DIAGNOSIS: Pt is a 78 year old male who was admitted to [facility] for complaints of fever and weakness. He was tested to have influenza, and admitted. Past Medical History: Parkinson's disease; DM; pancytopenia; liver cirrhosis; MGUS; GERD; hypertension Social History/Home Situation: Pt lives at the [facility] in an apartment. He reports that there is an elevator on site to get to his apartment. He reports that prior to admission he was (I) in all ADLs/IADLs. He uses a mobilized chair to get around for functional mobility and utilizes RCT services. Equipment owned/DME: Power chair, manual chair, FW W, 4 WW, handicap accessible apartment with elevator SUBJECTIVE: Pt states that he is being discharged today from the hospital and returning to the [facility]. OBJECTIVE: General Observation: pleasant and answers questions appropriately Mental Status: A&Ox3 Pain: no c/o pain. ROM: RUE AROM WNL L UE AROM WNL STRENGTH: RUE 4/5 throughout industrial machinery mechanic is strong and equal LUE 4/5 throughout industrial machinery mechanic is strong and equal FUNCTIONAL MOBILITY/ADLS: Sit to stand SBA, FWW Stand to sit SBA, FWW Chair to sink SBA, FWW Sink to chair SBA, FWW BATHING Standing at sink (I) with face, (B) UE and abdomen, Pt sits in wheelchair for LE bathing which he completes (I). DRESSING sitting in chair Dressing UE (I) don and doff [facility] gown Dressing LE (I) don and doff (B) socks and (B )shoes. Grooming standing at sink (I) with brushing teeth Eating- (I) Toileting- On toilet, standing to urinate with (A) from grab bars (I) BALANCE: Static sitting Normal Dynamic Sitting Normal Static standing Normal Dynamic Standing Good ASSESSMENT: Patient is a 78-year-old male referred to occupational therapy services with diagnosis of complaints of fever and weakness. He was tested to have influenza, and admitted. Pt was seen for a total of 7 OT sessions. He has demonstrated increased (I) in ADL routines and is presenting at near baseline level of function. He met 4/5 goals and during todays OT session demonstrated good safety awareness and functional mobility to perform ADLs. OT recommends that pt return home when medically cleared per MD. GOALS 1. Transfers (S) FWW (NOT MET) 2. Dressing pt will be able to (I) don and doff UE/LE clothing (MET) 3. Bathing-Standing at sink pt will be able to (I) perform bathing routine. (MET) 4. Toileting- On toilet (I) (MET) 5. Eating- (I) (MET) PLAN OF CARE/TREATMENT PLAN: Discharge from skilled OT services Return to [facility] when medically cleared per MD DISCHARGE RECOMMENDATIONS Home to [facility] TREATMENT TIME/MINUTES/CODES [id number], 28 minutes (07:48) Ashley Butcher OTR/[facility]
--- NOTE | 2018-04-14 10:52 | OTDS_ITS ---
Date of service: 04/14/18 Time of Service: 07:48 Occupational Therapy Notes Occupational Therapy Inpatient Discharge Summary Dates of Service: 04/06/18-04/14/18 Date: 04/14/18 Referring Doctor:Treva Huff MD OT Orders: Eval and treat Precautions: Fall, Contact PATIENT PROFILE/ADMITTING DIAGNOSIS: Pt is a 78 year old male who was admitted to [facility] for complaints of fever and weakness. He was tested to have influenza, and admitted. Past Medical History: Parkinson's disease; DM; pancytopenia; liver cirrhosis; MGUS; GERD; hypertension Social History/Home Situation: Pt lives at the [facility] in an apartment. He reports that there is an elevator on site to get to his apartment. He reports that prior to admission he was (I) in all ADLs/IADLs. He uses a mobilized chair to get around for functional mobility and utilizes RCT services. Equipment owned/DME: Power chair, manual chair, FW W, 4 WW, handicap accessible apartment with elevator SUBJECTIVE: Pt states that he is being discharged today from the hospital and returning to the [facility]. OBJECTIVE: General Observation: pleasant and answers questions appropriately Mental Status: A&Ox3 Pain: no c/o pain. 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 DRESSING sitting in chair Dressing UE (I) don and doff [facility] gown Dressing LE (I) don and doff (B) socks and (B )shoes. Grooming standing at sink (I) with brushing teeth Eating- (I) Toileting- On toilet, standing to urinate with (A) from grab bars (I) BALANCE: Static sitting Normal Dynamic Sitting Normal Static standing Normal Dynamic Standing Good ASSESSMENT: Patient is a 78-year-old male referred to occupational therapy services with diagnosis of complaints of fever and weakness. He was tested to have influenza, and admitted. Pt was seen for a total of 7 OT sessions. He has demonstrated increased (I) in ADL routines and is presenting at near baseline level of function. He met 4/5 goals and during todays OT session demonstrated good safety awareness and functional mobility to perform ADLs. OT recommends that pt return home when medically cleared per MD. GOALS 1. Transfers (S) FWW (NOT MET) 2. Dressing pt will be able to (I) don and doff UE/LE clothing (MET) 3. Bathing-Standing at sink pt will be able to (I) perform bathing routine. (MET) 4. Toileting- On toilet (I) (MET) 5. Eating- (I) (MET) PLAN OF CARE/TREATMENT PLAN: Discharge from skilled OT services Return to [facility] when medically cleared per MD DISCHARGE RECOMMENDATIONS Home to [facility] TREATMENT TIME/MINUTES/CODES [id number], 28 minutes (07:48) Ashley Butcher OTR/[facility]
--- NOTE | 2018-04-14 11:06 | PT.INTREAT ---
Date of service: 04/14/18 Time of Service: 10:15 PT Notes 04/14/18 SUBJECTIVE: Drake states that he is feeling well. He's been more independent in his room, stating that he's been able to get up and use his urinal independently in the night. OBJECTIVE: Pt is sitting in his recliner. TRANSFERS: supine-sit: independent sit-supine: independent Sit to stand: supervision Stand to sit: supervision bed-chair: FWW, supervision Gait: Patient ambulates 50' with FWW and supervision with good gait mechanics and good safety awareness. Therex: UE/LE strengthening performed in seated position and standing position. Added dynamic balance activities with CG throughout. Patient tolerated addition of standing hip PREs with supervision and UE support to FWW. ASSESSMENT: Improving activity tolerance and significant improvements in gait quality and safety. PLAN: Continue per established POC. Treatment time: 30 minutes (10:15-10:45) [id number], [id number]
[2018-04-14] MEDS: Normal Saline Flush 10 ML SYR IVP (13:50)
--- NOTE | 2018-04-14 15:58 | PGE_ITS ---
Date of Service Date of service: 04/14/18 Time of Service: 15:56 Assessment and Plan (1) Streptococcal bacteremia: Current visit: Yes Status: Acute Evidence of GBS on Blood Culture. Interestingly, also with a Coag Negative Staph speciated to [place], but cannot fully discount infection as patient's source thought secondary to Port (although with catheter tip cultures negative for growth). Patient is s/p port removal. His blood cultures dated 04/08/2018 were negative. He is currently on day #6 of IV ceftriaxone (to cover both bacteremia and PNA). He will receive his last dose of IV antibiotics tomorrow, he will then transition to Augmentin x7 more days. He will be discharged back to [facility] tomorrow. (2) Diabetes mellitus, insulin dependent (IDDM), controlled: Current visit: Yes Status: Acute His blood sugars have been within an acceptable range. Continue sliding scale coverage and ADA diet. (3) Pancytopenia: Current visit: No Status: Chronic With transfusion dependent anemia. He is followed by [facility] hematology. Continue to monitor blood counts. His ANC is 930 today. He is on protective precautions. Will reassess blood counts tomorrow. Consider discussion with hematology. (4) CAP (community acquired pneumonia): Current visit: Yes Status: Acute With clear initial CXR, but with development of bibasilar infiltrates on CXR the day following admission. Treatment as above. (5) DVT prophylaxis: Current visit: Yes Status: Acute SCDs and teds. Avoid chemical prophylaxis given low platelet count and pancytopenia. (6) Discharge planning issues: Current visit: Yes Status: Acute He is a full code. He will transition back to [facility] on oral antibiotics after completing a 7-day course of IV antibiotics. This case was discussed with Dr. Larson who is in agreement. Subjective Interval history since last seen: Mr. Ren is a 78-year-old male with a past medical history significant for MGUS and pancytopenia, transfusion dependent anemia (for which he had a port in place on admission), Parkinson's disease, cir rhosis of the liver, recent SBO, prior history of Prostate CA, and DM. He is currently being treated for group B strep bacteremia and community-acquired pneumonia. He also grew staph hominis in his blood. His port has since been removed. He had an echocardiogram which was negative for vegetation. He is looking forward to discharge back to the [facility] where he resides. He reports that he coughs occasionally, he denies shortness of breath, wheezing, generalized weakness, chest pain, pressure, palpitations, he is eating and drinking and tolerating his diet without nausea, or vomiting.. He reports that he had a soft stool today- denies diarrhea. He reports an old, large bruise to his left lower abdomen. He is eagerly awaiting the completion of his IV antibiotics. Exam Narrative Exam Narrative: General: Patient appears comfortable, sitting up in the chair, eating lunch, AAOX3, NAD Neck: Supple, no JVD. CV: Regular, nontachycardic, S1S2, No rubs, murmurs, or gallops. Pulmonary: Respirations even and unlabored. Lung sounds clear to auscultation bilaterally, no rales or wheezing. Abdomen: + Bowel Sounds, soft, nontender, nondistended, large area of ecchymosis-deep purple in color, to the left lower abdomen into his left groin. Vascular: Mild b/l lower extremity edema, pedal pulses palpable bilaterally. Psych: Normal mood and affect. Objective Objective Clinical Data: Abnormal lab results 04/14/18 04/14/18 Range/Units 06:55 06:55 WBC 1.36 L* (4.4-10.8) k/cumm RBC 3.00 L (4.50-6.00) m/cumm Hgb 8.7 L (13.5-17.5) g/dL Hct 26.4 L (40.0-50.0) % RDW 15.7 H (11.8-14.1) % Plt Count 66 L (130-400) x1000/uL Absolute Neutrophils 0.93 L (1.2-6.7) k/cumm Absolute Lymphocytes 0.21 L (1.2-3.4) k/cumm Glucose 155 H (70-100) mg/dL Calcium 8.1 L (8.5-10.1) mg/dL Vital Signs Temperature 36.8 C 04/14/18 11:45 Temperature Source Tympanic 04/14/18 11:45 Pulse 77 04/14/18 11:45 Pulse Rhythm Regular 04/14/18 08:52 Pulse 91 H 04/05/18 12:10 Respiratory Rate 18 04/14/18 11:45 Respiratory Effort 04/14/18 08:52 Respiratory Depth Normal 04/14/18 08:52 Respiratory Pattern Normal 04/14/18 08:52 Blood Pressure 146/84 H 04/14/18 11:45 Blood Pressure Mean 70 04/05/18 12:08 Blood Pressure Position Supine 04/05/18 08:18 Pulse Oximetry 96 04/14/18 11:45 Oxygen Delivery Method Room Air 04/14/18 11:45 Oxygen Flow Rate 0 04/14/18 11:45 Pain Level 6 04/14/18 11:45 Comment 04/08/18 23:15 Intake & Output 04/13/18 04/14/18 04/14/18 23:59 11:59 23:59 Intake Total 540 / 990 Output Total 1075 / 1675 Balance -535 / -685 Weight 94.7 kg Intake: IV 50 / 50 Oral 490 / 940 Output: Urine 1075 / 1675 Other: Urine Color Yellow Urine Appearance Clear Clear Urine Odor Normal Stool Size Moderate Large Stool Characteristics Soft Formed Formed Brown Voiding Methods Urinal Laboratory Results WBC 1.36 k/cumm (4.4-10.8) L* 04/14/18 06:55 RBC 3.00 m/cumm (4.50-6.00) L 04/14/18 06:55 Hgb 8.7 g/dL (13.5-17.5) L 04/14/18 06:55 Hct 26.4 % (40.0-50.0) L 04/14/18 06:55 MCV 88.0 fL (80-95) 04/14/18 06:55 MCH 29.0 pg (27.0-33.0) 04/14/18 06:55 MCHC 33.0 g/dL (32.0-36.0) 04/14/18 06:55 RDW 15.7 % (11.8-14.1) H 04/14/18 06:55 Plt Count 66 x1000/uL (130-400) L 04/14/18 06:55 MPV 10.8 fL (8.0-11.0) 04/14/18 06:55 Immature Gran % 0.7 04/14/18 06:55 Neutrophils % 68.5 04/14/18 06:55 Band Neutrophils % 3.0 % 04/12/18 10:57 Lymphocytes % 15.4 04/14/18 06:55 Atypical Lymphs % 2 04/12/18 10:57 Monocytes % 8.8 04/14/18 06:55 Eosinophils % 5.9 04/14/18 06:55 Basophils % 0.7 04/14/18 06:55 Myelocytes % 1.0 % 04/12/18 10:57 Absolute Neutrophils 0.93 k/cumm (1.2-6.7) L 04/14/18 06:55 Absolute Lymphocytes 0.21 k/cumm (1.2-3.4) L 04/14/18 06:55 Absolute Monocytes 0.12 k/cumm (0.11-0.7) 04/14/18 06:55 Absolute Eosinophils 0.08 k/cumm (0.0-0.7) 04/14/18 06:55 Absolute Basophils 0.01 k/cumm (0.0-0.2) 04/14/18 06:55 Differential Comment Diff reviewed 04/14/18 06:55 RBC Morphology See below 04/14/18 06:55 Polychromasia Present 04/14/18 06:55 Hypochromasia 2+ 04/08/18 06:24 Poikilocytosis 2+ 04/13/18 07:45 Anisocytosis 2+ 04/13/18 07:45 Microcytosis 2+ 04/11/18 06:20 Macrocytosis 1+ 04/08/18 06:24 Ovalocytes 2+ 04/14/18 06:55 PT 12.8 sec (9.3-11.0) H 04/07/18 06:35 INR 1.3 (0.9-1.1) H 04/07/18 06:35 Sodium 139 mmol/L (136-145) 04/14/18 06:55 Potassium 4.3 mmol/L (3.5-5.1) 04/14/18 06:55 Chloride 106 mmol/L (98-107) 04/14/18 06:55 Carbon Dioxide 26.9 mmol/L (21.0-32.0) 04/14/18 06:55 Anion Gap 6.1 mmol/L (3-11) 04/14/18 06:55 BUN 13 mg/dL (7-18) 04/14/18 06:55 Creatinine 0.77 mg/dL (0.70-1.30) 04/14/18 06:55 Estimated GFR/1.73 m2 >= 60.00 (mL/min/1.73m2) 04/14/18 06:55 Glucose 155 mg/dL (70-100) H 04/14/18 06:55 Lactate 1.9 mmol/L (0.6-1.4) H 04/05/18 08:35 Calcium 8.1 mg/dL (8.5-10.1) L 04/14/18 06:55 Magnesium 1.8 mg/dL (1.8-2.4) 04/14/18 06:55 Total Bilirubin 0.7 mg/dL (0.2-1.0) 04/10/18 06:54 Conjugated Bilirubin 0.30 mg/dL (0.00-0.20) H 04/10/18 06:54 AST 32 U/L (15-37) 04/10/18 06:54 ALT < 6 U/L (12-78) L 04/10/18 06:54 Alkaline Phosphatase 152 U/L (46-116) H 04/10/18 06:54 C-Reactive Protein 0.93 mg/dL (0.0-0.3) H 04/10/18 06:54 Total Protein 6.4 g/dL (6.4-8.2) 04/10/18 06:54 Albumin 2.4 g/dL (3.4-5.0) L 04/10/18 06:54 Urine Color Dark yellow (Yellow) 04/05/18 09:41 Urine Clarity Sl cloudy 04/05/18 09:41 Urine pH >= 9.0 (5-8) H 04/05/18 09:41 Ur Specific Perry 1.015 (1.005-1.025) 04/05/18 09:41 Urine Protein 100 mg/dL (Negative) H 04/05/18 09:41 Urine Ketones Trace mg/dL (Negative) H 04/05/18 09:41 Urine Blood Large (Negative) H 04/05/18 09:41 Urine Nitrite Negative (Negative) 04/05/18 09:41 Urine Bilirubin Small (Negative) H 04/05/18 09:41 Urine Urobilinogen >=8.0 EU/dL (Up TO 0.2) 04/05/18 09:41 Ur Leukocyte Esterase Negative (Negative) 04/05/18 09:41 Urine RBC >50 (0-2) H 04/05/18 09:41 Urine WBC 3-5 HPF (0-5) 04/05/18 09:41 Ur Epithelial Cells Negative HPF (Negative) 04/05/18 09:41 Urine Crystals Negative HPF (Negative) 04/05/18 09:41 Urine Bacteria Negative HPF (Negative) 04/05/18 09:41 Urine Casts Negative LPF (Negative) 04/05/18 09:41 Urine Mucus Trace (Negative) 04/05/18 09:41 Urine Other Few renal (Negative) 04/05/18 09:41 Ur Culture Indicated? No 04/05/18 09:41 Urine Glucose 100 mg/dL (Negative) 04/05/18 09:41 Specimen Type nasopharyngeal 04/05/18 11:30 Influenza Type A RNA Negative (Negative) 04/05/18 11:30 Influenza Type B RNA Negative (Negative) 04/05/18 11:30 RSV RNA Qual (PCR) Negative (Negative) 04/05/18 11:30 Patient ABO/Rh O Positive 04/06/18 16:50 Antibody Screen Positive 04/06/18 16:50 Antibody Identification Anti-E 04/06/18 16:50 Crossmatch See Detail 04/06/18 16:50
--- NOTE | 2018-04-14 15:59 | PT.INTREAT ---
Date of service: 04/14/18 Time of Service: 15:59 PT Notes 04/14/18 SUBJECTIVE: Drake stating he is not happy because he wanted to go home today. He feels good physically at this point. OBJECTIVE: Seated in his recliner this afternoon. Agreeable to PT treatment. TRANSFERS Sit to stand: S Stand to sit: S GAIT Device: FWW Weight bearing: Full Assist: S Distance: 75' THEREX: UE/LE strengthening performed. He also performs functional sit to stands and standing balance activities. See flow sheet for specifics. ASSESSMENT: Pt tolerates PT treatment well with improving balance and safety with gait. PLAN: Continue per POC. Treatment time: 2:55-3:20 [id number], [id number] Mena Kinney, TONA
[2018-04-14] MEDS: Melatonin 3 MG TAB 6 MG PO (20:33)
[2018-04-14] MEDS: Acetaminophen 325 MG TAB PO (20:37)
[2018-04-15 07:28] LABS: BUN 13 mg/dL (7-18); CREATININE 0.76 mg/dL (0.70-1.30); Calcium 8.2 mg/dL (8.5-10.1); Chloride 106 mmol/L (98-107); Glucose 155 mg/dL (70-100); Magnesium 1.7 mg/dL (1.8-2.4); Potassium 4.7 mmol/L (3.5-5.1); Sodium 139 mmol/L (136-145)
[2018-04-15] MEDS: Insulin Aspart 300 UNITS/3 ML PEN SC (08:07)
[2018-04-15] MEDS: Carvedilol 3.125 MG TAB PO (08:10)
[2018-04-15] MEDS: guaiFENesin 600 MG TABCR PO (08:10)
[2018-04-15] MEDS: Magnesium Oxide 400 MG TAB PO ×2 (08:10→11:22)
[2018-04-15] MEDS: Pantoprazole 40 MG TABCR PO (08:10)
[2018-04-15 08:35] LABS: HGB 9.1 g/dL (13.5-17.5); Mean Corp. HGB Concentration 32.5 g/dL (32.0-36.0); Mean Corpuscular Hemoglobin 28.8 pg (27.0-33.0); Mean Corpuscular Volume 88.6 fL (80-95); RBC 3.16 m/cumm (4.50-6.00); RBC Distribution Width 15.6 % (11.8-14.1); White Blood Cell Count 1.44 k/cumm (4.4-10.8)
[2018-04-15 08:36] LABS: Absolute Basophil Count 0.01 k/cumm (0.0-0.2); Absolute Eosinophil Count 0.09 k/cumm (0.0-0.7); Absolute Lymphocyte Count 0.23 k/cumm (1.2-3.4); Absolute Monocyte Count 0.11 k/cumm (0.11-0.7); Absolute Neutrophil Count 0.99 k/cumm (1.2-6.7); Basophils % 0.7; Eosinophils % 6.3; Immature Grans % 0.7; Mean Platelet Volume 11.1 fL (8.0-11.0); Monocytes % 7.6; Neutrophils % 68.7; Platelet Count 75 x1000/uL (130-400)
[2018-04-15 08:41] LABS: Diff Comment Diff Reviewed; Polychromasia Present
[2018-04-15 08:42] LABS: Ovalocytes 2+
[2018-04-15 08:45] VITALS: BP 159/76; PULSE 71; RESP 19; TEMP 36.7; O2SAT 100
--- NOTE | 2018-04-15 10:31 | PDOC.CMDIS ---
- If Service Date Differs Date of service: 04/15/18 Time of Service: 10:31 LACE Index Scoring Tool - Questions: Length of Stay (in days): 7 - 13 Acuity (Admit via E.D.?): Yes Comorbidities: Diabetes w/o Complication, Any Tumor, Liver or Renal Disease E.D. 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 CM coordinated RCT for transportation return to [facility]. He will need to follow-up with hematology and his primary care provider after discharge as directed. Drake states he will schedule his own appointment at [facility]. He will use a walker from here and return it in the morning. CM contacted [facility] and requested that they deliver his antibiotics to [facility]. Referral was faxed to [facility] and [facility] for follow up. Patient/Family Education Needs: Discharge education, limitations, follow-up plan of care asked me 3 and self-management. Services Needed at Discharge: Home Health Care Services, Occupational Therapy, Transportation
--- NOTE | 2018-04-15 10:37 | CMDISCH_ITS ---
- If Service Date Differs Date of service: 04/15/18 Time of Service: 10:31 LACE Index Scoring Tool - Questions: Length of Stay (in days): 7 - 13 Acuity (Admit via E.D.?): Yes Comorbidities: Diabetes w/o Complication, Any Tumor, Liver or Renal Disease E.D. 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 CM coordinated RCT for transportation return to [facility]. He will need to follow-up with hematology and his primary care provider after discharge as directed. Drake states he will schedule his own appointment at [facility]. He will use a walker from here and return it in the morning. CM contacted [facility] and requested that they deliver his antibiotics to [facility]. Referral was faxed to [facility] and [facility] for follow up. Patient/Family Education Needs: Discharge education, limitations, follow-up plan of care asked me 3 and self-management. Services Needed at Discharge: Home Health Care Services, Occupational Therapy, Transportation
--- NOTE | 2018-04-15 10:37 | W.PM.DS.N ---
Date of service: 04/15/18 Time of Service: 10:39 DS: Diagnosis Discharge Diagnosis (1) Streptococcal bacteremia: Status: Acute (2) Diabetes mellitus, insulin dependent (IDDM), controlled: Status: Acute (3) Pancytopenia: Status: Chronic (4) CAP (community acquired pneumonia): Status: Acute Discharge Plan Disposition Patient Disposition: HOME Condition: Improving Discharge Details Reason For Visit: SEPSIS DUE TO SUSPECTED CAP Admit Date/Time: 04/05/18 11:08 Admit Provider: Treva Huff Attending Provider: Treva Huff [facility]: Mr. Ren is a 78-year-old male with a past medical history significant for MGUS and pancytopenia, transfusion dependent anemia (for which he had a port in place on admission), Parkinson's disease, cirrhosis of the liver, recent SBO, prior history of Prostate CA, and DM. He presented to the ED on 04/05/18 with reports of feeling achey, tired, generally weak with a headache. He lives at the [facility]. EMS was notified and he was transported to the hospital. He had a negative rapid flu swab, his chest x-ray on admission showed no acute pulmonary process, however, repeat x-ray the following day revealed development of bilateral infiltrates representing pneumonia or atelectasis. He did have a MediPort in place on admission, placing bacteremia high on the list of differentials. His blood cultures eventually grew group B strep and Staphylococcus hominis. His MediPort was removed, the catheter dip yielded no growth at 48 hours. With the results of the blood cultures, he transitioned from broad-spectrum antibiotics to IV ceftriaxone for 7 days from the first set of negative blood cultures (04/08/2018). He also had an echocardiogram which showed an LVEF of 65-70%, mild mitral valve regurgitation, pulmonary systolic pressure of 35-45 mmHg, no valvular vegetation noted. He was noted to have pancytopenia with transfusion dependent anemia, he is followed by [facility] hematology. His hemoglobin and hematocrit are stable at the time of discharge with a hemoglobin of 9.1 hematocrit of 28. His ANC was as low was 930 the day prior to discharge, his ANC was up to 990 on the day of discharge. Chemical DVT prophylaxis was avoided due to low platelets, his platelet count at the time of discharge is 75. He will have close follow-up with his hematology provider, Dr. Tucker at [facility]. He has a PICC line in place, he will need to discuss replacing mediport with hematology. In regard to his diabetes, his blood glucose remained well controlled on short acting insulin per sliding scale and ADA diet. At one point during his hospitalization, he was noted to have difficulties with speech. At that time he had a CT head which was negative. He was seen by neurology who suspected that the dysarthria may be part of a wearing off phenomenom. He was seen by speech therapy who recommended he Change to a Dysphagia Advanced diet with moistened chopped meats. Worked with physical therapy, with improved balance and safety. He will be discharged back to [facility] today. He will complete a 7-day course of Augmentin. He will follow-up with his primary care provider as scheduled. He will follow-up with hematology at [facility] as scheduled. Home health will follow him at the [facility]. Home Meds and New Rx's Prescriptions: New nystatin 100,000 unit/gram Powder topical TID Qty: 0 RF: 0 amoxicillin-pot clavulanate [Augmentin] 875-125 mg tablet 1 tab PO BID Qty: 14 RF: 0 Continued melatonin 5 MG tablet 5 mg PO HS RF: 0 pantoprazole 40 MG tablet,delayed release (DR/EC) 40 mg PO BID RF: 0 carvedilol 3.125 MG tablet 3.125 mg PO BID RF: 0 carbidopa-levodopa 25-100 mg Tablet Extended Release 2 tab PO QID RF: 0 sucralfate [Carafate] 100 mg/mL Suspension 10 ml PO AC & HS RF: 0 magnesium oxide 250 mg magnesium Tablet 250 mg PO DAILY RF: 0 tramadol 50 MG tablet 50 mg PO HS PRN PRN (Reason: Pain) RF: 0 Novolog Flexpen U-100 Insulin 300 UNITS/3 ML insulin pen Sub-Q AC RF: 0 Discharge Instructions Instructions: Community Acquired Pneumonia (DC), Bacteremia (DC) Additional Instructions: Take all of the antibiotics until it is gone. Follow-up with your PCP as scheduled. Follow-up with hematology at [facility] as scheduled. They will discuss replacing your port. Home health will draw labs in 3 days to reassess her blood counts. Take care! Stand Alone Forms: Nursing Discharge Form Referrals: [facility] [Other] - 05/05/18 8:30 am Ismael Weber [Primary Care Provider] - 04/28/18 10:30 am Activity:: Activity as Tolerated Equipment/Supplies:: No Equipment Needed Diet:: carb counting and heart healthy Discharge Orders Discharge Orders: Discharge Order (Routine); Ordered 04/15/18 Ordered By: Scarlett Costello Other Ambulatory Orders: Complete Blood Count w/Diff (Routine) Timeframe: 3 Days Location: Determined by Patient Ordered By: Scarlett Costello Complete Blood Count w/Diff (Routine) Timeframe: 3 Days Location: Determined by Patient Ordered By: Scarlett Costello Exam Narrative Exam Narrative: General: Patient appears comfortable, sitting up in the chair, eating lunch, AAOX3, NAD Neck: Supple, no JVD. CV: Regular, nontachycardic, S1S2, No rubs, murmurs, or gallops. Pulmonary: Respirations even and unlabored. Lung sounds clear to auscultation bilaterally, no rales or wheezing. Abdomen: + Bowel Sounds, soft, nontender, nondistended, large area of ecchymosis-deep purple in color, to the left lower abdomen into his left groin. Vascular: Mild b/l lower extremity edema, pedal pulses palpable bilaterally. Psych: Normal mood and affect. DS: Data Vitals/I&O Vitals and I&O: Vital Signs Temperature 36.7 C 04/15/18 08:45 Temperature Source Tympanic 04/15/18 08:45 Pulse 71 04/15/18 08:45 Pulse Rhythm Regular 04/15/18 08:17 Pulse 91 H 04/05/18 12:10 Respiratory Rate 19 04/15/18 08:45 Respiratory Effort Non-Labored 04/15/18 08:17 Respiratory Depth Normal 04/15/18 08:17 Respiratory Pattern Normal 04/15/18 08:17 Blood Pressure 159/76 H 04/15/18 08:45 Blood Pressure Mean 70 04/05/18 12:08 Blood Pressure Position Supine 04/05/18 08:18 Pulse Oximetry 100 04/15/18 08:45 Oxygen Delivery Method Room Air 04/15/18 08:45 Oxygen Flow Rate 0 04/15/18 08:45 Pain Level 7 04/14/18 20:37 Comment 04/08/18 23:15 Intake & Output 04/14/18 04/14/18 04/15/18 11:59 23:59 11:59 Intake Total 480 / 480 50 / 50 Output Total 700 / 700 Balance 480 / 480 -650 / -650 Weight 94.7 kg 92.4 kg Intake: IV 50 / 50 Oral 480 / 480 Output: Urine 700 / 700 Other: Urine Color Yellow Urine Appearance Clear Clear Clear Urine Odor None Comment voids in urinal Stool Size Large Moderate Moderate Stool Characteristics Formed Soft Soft Brown Formed Brown Voiding Methods Urinal Bedside Commode Completed studies during hospitalization [Text1]: 04/05/2018: CHEST: Frontal and lateral views. Comparison with prior examinations. The heart size is within normal limits. The pulmonary vasculature is within normal limits. There is an infusaport catheter. The tip of the catheter is in good position in the superior vena cava. No focal consolidating infiltrates, effusions or pneumothoraces are identified. Degenerative changes are seen in the spine. IMPRESSION: No acute pulmonary process. 04/06/2018: CHEST X-RAY, AP PORTABLE: Comparison is 04/05/18. The heart size appears stable. The tip of the Infusaport catheter is stable in position at the junction of the superior vena cava and right atrium. Since the prior examination, there have developed bilateral pulmonary infiltrates. Infiltrates are seen in the lung apices and the left lower lobe. No effusions or pneumothoraces are identified. IMPRESSION: Interval development of bilateral infiltrates. This may represent pneumonia or atelectasis. 04/08/2018: Summary: 1. Left ventricle: Wall thickness was increased in a pattern of moderate LVH. Systolic function was hyperdynamic. The estimated ejection fraction was 65-70%. Diastolic parameters were normal for age. There was no evidence of elevated ventricular filling pressure by Doppler parameters. 2. Mitral valve: There was mild regurgitation. 3. Right ventricle: The cavity size was normal. Wall thickness was normal. Systolic function was normal. 4. Atrial septum: No defect or patent foramen ovale was identified. 5. Pulmonary arteries: Pulmonary systolic pressure was in the range of 35mm Hg to 45mm Hg. 6. Inferior vena cava: The vessel was patent and normal in size. The respirophasic diameter changes were in the normal range (greater than or equal to 50%), consistent with normal central venous pressure. CT BRAIN, NONCONTRAST: Comparison 12/27/16. The ventricles and sulci are consistent with the patient's age. No intracranial hemorrhage, infarct, acute midline shift or mass effect is identified. The ventricles are intact. The basilar cisterns are patent. There is near complete opacification of the maxillary sinuses bilaterally. There is thickening of the calvillo of the maxillary sinuses. These findings are consistent with chronic sinusitis. There is mild mucosal thickening in a few ethmoid air cells and the sphenoid sinus. There appear to be postsurgical changes of the mastoid air cells on the left with opacification of a few of the right mastoid air cells. The calvarium is intact. No acute fracture is seen. IMPRESSION: 1. No acute intracranial process. 2. Findings consistent with chronic sinusitis. Labs on day of discharge: Labs from last 24 hours 04/15/18 04/15/18 06:50 06:50 WBC 1.44 L* RBC 3.16 L Hgb 9.1 L Hct 28.0 L MCV 88.6 MCH 28.8 MCHC 32.5 RDW 15.6 H Plt Count 75 L MPV 11.1 H Immature Gran % 0.7 Neutrophils % 68.7 Lymphocytes % 16.0 Monocytes % 7.6 Eosinophils % 6.3 Basophils % 0.7 Absolute Neutrophils 0.99 L Absolute Lymphocytes 0.23 L Absolute Monocytes 0.11 Absolute Eosinophils 0.09 Absolute Basophils 0.01 Differential Comment Diff reviewed RBC Morphology See below Polychromasia Present Ovalocytes 2+ Sodium 139 Potassium 4.7 Chloride 106 Carbon Dioxide 28.0 Anion Gap 5.0 BUN 13 Creatinine 0.76 Estimated GFR/1.73 m2 >= 60.00 Glucose 155 H Calcium 8.2 L Magnesium 1.7 L Preliminary micro results at discharge 04/07/18 10:53 Anaerobic Culture - Preliminary [facility] - Left [facility] Medical History Esophageal varices (Chronic) Pancytopenia (Chronic) Ventral hernia (Chronic) DM (diabetes mellitus) GERD (gastroesophageal reflux disease) HTN (hypertension) IBS (irritable bowel syndrome) Iron deficiency anemia Liver cirrhosis HANS (obstructive sleep apnea) Parkinson disease Surgical History H/O ventral hernia repair (Chronic) History of Leonid fundoplication (Chronic) History of bowel resection (Chronic) BONE MARROW BIOPSY (11/25/14) Colectomy colonoscopy (11/21/15) Family History Maternal Cousin Colon cancer Maternal Cousin Colon cancer Social History marital status details: Smoking and Tabacco status: Former Tobacco Use alcohol intake: current alcohol intake frequency: other additional social history: drinks < 1/month
--- NOTE | 2018-04-15 10:41 | DSE_ITS ---
Date of service: 04/15/18 Time of Service: 10:39 DS: Diagnosis Discharge Diagnosis (1) Streptococcal bacteremia: Status: Acute (2) Diabetes mellitus, insulin dependent (IDDM), controlled: Status: Acute (3) Pancytopenia: Status: Chronic (4) CAP (community acquired pneumonia): Status: Acute Discharge Plan Disposition Patient Disposition: HOME Condition: Improving Discharge Details Reason For Visit: SEPSIS DUE TO SUSPECTED CAP Admit Date/Time: 04/05/18 11:08 Admit Provider: Treva Huff Attending Provider: Treva Huff [facility]: Mr. Ren is a 78-year-old male with a past medical history significant for MGUS and pancytopenia, transfusion dependent anemia (for which he had a port in place on admission), Parkinson's disease, cirrhosis of the liver, recent SBO, prior history of Prostate CA, and DM. He presented to the ED on 04/05/18 with reports of feeling achey, tired, generally weak with a headache. He lives at the [facility]. EMS was notified and he was transported to the hospital. He had a negative rapid flu swab, his chest x-ray on admission showed no acute pulmonary process, however, repeat x-ray the following day revealed development of bilateral infiltrates representing pneumonia or atelectasis. He did have a MediPort in place on admission, placing bacteremia high on the list of differentials. His blood cultures eventually grew group B strep and Staphylococcus hominis. His MediPort was removed, the catheter dip yielded no growth at 48 hours. With the results of the blood cultures, he transitioned from broad-spectrum antibiotics to IV ceftriaxone for 7 days from the first set of negative blood cultures (04/08/2018). He also had an echocardiogram which showed an LVEF of 65-70%, mild mitral valve regurgitation, pulmonary systolic pressure of 35-45 mmHg, no valvular vegetation noted. He was noted to have pancytopenia with transfusion dependent anemia, he is followed by [facility] hematology. His hemoglobin and hematocrit are stable at the time of discharge with a hemoglobin of 9.1 hematocrit of 28. His ANC was as low was 930 the day prior to discharge, his ANC was up to 990 on the day of di scharge. Chemical DVT prophylaxis was avoided due to low platelets, his platelet count at the time of discharge is 75. He will have close follow-up with his hematology provider, Dr. Tucker at [facility]. He has a PICC line in place, he will need to discuss replacing mediport with hematology. In regard to his diabetes, his blood glucose remained well controlled on short acting insulin per sliding scale and ADA diet. At one point during his hospitalization, he was noted to have difficulties with speech. At that time he had a CT head which was negative. He was seen by neurology who suspected that the dysarthria may be part of a wearing off phenomenom. He was seen by speech therapy who recommended he Change to a Dysphagia Advanced diet with moistened chopped meats. Worked with physical therapy, with improved balance and safety. He will be discharged back to [facility] today. He will complete a 7-day course of Augmentin. He will follow-up with his primary care provider as scheduled. He will follow-up with hematology at [facility] as scheduled. Home health will follow him at the [facility]. Home Meds and New Rx's Prescriptions: New nystatin 100,000 unit/gram Powder topical TID Qty: 0 RF: 0 amoxicillin-pot clavulanate [Augmentin] 875-125 mg tablet 1 tab PO BID Qty: 14 RF: 0 Continued melatonin 5 MG tablet 5 mg PO HS RF: 0 pantoprazole 40 MG tablet,delayed release (DR/EC) 40 mg PO BID RF: 0 carvedilol 3.125 MG tablet 3.125 mg PO BID RF: 0 carbidopa-levodopa 25-100 mg Tablet Extended Release 2 tab PO QID RF: 0 sucralfate [Carafate] 100 mg/mL Suspension 10 ml PO AC & HS RF: 0 magnesium oxide 250 mg magnesium Tablet 250 mg PO DAILY RF: 0 tramadol 50 MG tablet 50 mg PO HS PRN PRN (Reason: Pain) RF: 0 Novolog Flexpen U-100 Insulin 300 UNITS/3 ML insulin pen Sub-Q AC RF: 0 Discharge Instructions Instructions: Community Acquired Pneumonia (DC), Bacteremia (DC) Additional Instructions: Take all of the antibiotics until it is gone. Follow-up with your PCP as scheduled. Follow-up with hematology at [facility] as scheduled. They will discuss replacing your port. Home health will draw labs in 3 days to reassess her blood counts. Take care! Stand Alone Forms: Nursing Discharge Form Referrals: [facility] [Other] - 05/05/18 8:30 am Ismael Weber [Primary Care Provider] - 04/28/18 10:30 am Activity:: Activity as Tolerated Equipment/Supplies:: No Equipment Needed Diet:: carb counting and heart healthy Discharge Orders Discharge Orders: Discharge Order (Routine); Ordered 04/15/18 Ordered By: Scarlett Costello Other Ambulatory Orders: Complete Blood Count w/Diff (Routine) Timeframe: 3 Days Location: Determined by Patient Ordered By: Scarlett Costello Complete Blood Count w/Diff (Routine) Timeframe: 3 Days Location: Determined by Patient Ordered By: Scarlett Costello Exam Narrative Exam Narrative: General: Patient appears comfortable, sitting up in the chair, eating lunch, AAOX3, NAD Neck: Supple, no JVD. CV: Regular, nontachycardic, S1S2, No rubs, murmurs, or gallops. Pulmonary: Respirations even and unlabored. Lung sounds clear to auscultation bilaterally, no rales or wheezing. Abdomen: + Bowel Sounds, soft, nontender, nondistended, large area of ecchymosis-deep purple in color, to the left lower abdomen into his left groin. Vascular: Mild b/l lower extremity edema, pedal pulses palpable bilaterally. Psych: Normal mood and affect. DS: Data Vitals/I&O Vitals and I&O: Vital Signs Temperature 36.7 C 04/15/18 08:45 Temperature Source Tympanic 04/15/18 08:45 Pulse 71 04/15/18 08:45 Pulse Rhythm Regular 04/15/18 08:17 Pulse 91 H 04/05/18 12:10 Respiratory Rate 19 04/15/18 08:45 Respiratory Effort Non-Labored 04/15/18 08:17 Respiratory Depth Normal 04/15/18 08:17 Respiratory Pattern Normal 04/15/18 08:17 Blood Pressure 159/76 H 04/15/18 08:45 Blood Pressure Mean 70 04/05/18 12:08 Blood Pressure Position Supine 04/05/18 08:18 Pulse Oximetry 100 04/15/18 08:45 Oxygen Delivery Method Room Air 04/15/18 08:45 Oxygen Flow Rate 0 04/15/18 08:45 Pain Level 7 04/14/18 20:37 Comment 04/08/18 23:15 Intake & Output 04/14/18 04/14/18 04/15/18 11:59 23:59 11:59 Intake Total 480 / 480 50 / 50 Output Total 700 / 700 Balance 480 / 480 -650 / -650 Weight 94.7 kg 92.4 kg Intake: IV 50 / 50 Oral 480 / 480 Output: Urine 700 / 700 Other: Urine Color Yellow Urine Appearance Clear Clear Clear Urine Odor None Comment voids in urinal Stool Size Large Moderate Moderate Stool Characteristics Formed Soft Soft Brown Formed Brown Voiding Methods Urinal Bedside Commode Completed studies during hospitalization [Text1]: 04/05/2018: CHEST: Frontal and lateral views. Comparison with prior examinations. The heart size is within normal limits. The pulmonary vasculature is within normal limits. There is an infusaport catheter. The tip of the catheter is in good position in the superior vena cava. No focal consolidating infiltrates, effusions or pneumot horaces are identified. Degenerative changes are seen in the spine. IMPRESSION: No acute pulmonary process. 04/06/2018: CHEST X-RAY, AP PORTABLE: Comparison is 04/05/18. The heart size appears stable. The tip of the Infusaport catheter is stable in position at the junction of the superior vena cava and right atrium. Since the prior examination, there have developed bilateral pulmonary infiltrates. Infiltrates are seen in the lung apices and the left lower lobe. No effusions or pneumothoraces are identified. IMPRESSION: Interval development of bilateral infiltrates. This may represent pneumonia or atelectasis. 04/08/2018: Summary: 1. Left ventricle: Wall thickness was increased in a pattern of moderate LVH. Systolic function was hyperdynamic. The estimated ejection fraction was 65-70%. Diastolic parameters were normal for age. There was no evidence of elevated ventricular filling pressure by Doppler parameters. 2. Mitral valve: There was mild regurgitation. 3. Right ventricle: The cavity size was normal. Wall thickness was normal. Systolic function was normal. 4. Atrial septum: No defect or patent foramen ovale was identified. 5. Pulmonary arteries: Pulmonary systolic pressure was in the range of 35mm Hg to 45mm Hg. 6. Inferior vena cava: The vessel was patent and normal in size. The respirophasic diameter changes were in the normal range (greater than or equal to 50%), consistent with normal central venous pressure. CT BRAIN, NONCONTRAST: Comparison 12/27/16. The ventricles and sulci are consistent with the patient's age. No intracranial hemorrhage, infarct, acute midline shift or mass effect is identified. The ventricles are intact. The basilar cisterns are patent. There is near complete opacification of the maxillary sinuses bilaterally. There is thickening of the calvillo of the maxillary sinuses. These findings are consistent with chronic sinusitis. There is mild mucosal thickening in a few ethmoid air cells and the sphenoid sinus. There appear to be postsurgical changes of the mastoid air cells on the left with opacification of a few of the right mastoid air cells. The calvarium is intact. No acute fracture is seen. IMPRESSION: 1. No acute intracranial process. 2. Findings consistent with chronic sinusitis. Labs on day of discharge: Labs from last 24 hours 04/15/18 04/15/18 06:50 06:50 WBC 1.44 L* RBC 3.16 L Hgb 9.1 L Hct 28.0 L MCV 88.6 MCH 28.8 MCHC 32.5 RDW 15.6 H Plt Count 75 L MPV 11.1 H Immature Gran % 0.7 Neutrophils % 68.7 Lymphocytes % 16.0 Monocytes % 7.6 Eosinophils % 6.3 Basophils % 0.7 Absolute Neutrophils 0.99 L Absolute Lymphocytes 0.23 L Absolute Monocytes 0.11 Absolute Eosinophils 0.09 Absolute Basophils 0.01 Differential Comment Diff reviewed RBC Morphology See below Polychromasia Present Ovalocytes 2+ Sodium 139 Potassium 4.7 Chloride 106 Carbon Dioxide 28.0 Anion Gap 5.0 BUN 13 Creatinine 0.76 Estimated GFR/1.73 m2 >= 60.00 Glucose 155 H Calcium 8.2 L Magnesium 1.7 L Preliminary micro results at discharge 04/07/18 10:53 Anaerobic Culture - [facility] Medical History Esophageal varices (Chronic) Pancytopenia (Chronic) Ventral hernia (Chronic) DM (diabetes mellitus) GERD (gastroesophageal reflux disease) HTN (hypertension) IBS (irritable bowel syndrome) Iron deficiency anemia Liver cirrhosis HANS (obstructive sleep apnea) Parkinson disease Surgical History H/O ventral hernia repair (Chronic) History of Leonid fundoplication (Chronic) History of bowel resection (Chronic) BONE MARROW BIOPSY (11/25/14) Colectomy colonoscopy (11/21/15) Family History Maternal Cousin Colon cancer Maternal Cousin Colon cancer Social History marital status details: Smoking and Tabacco status: Former Tobacco Use alcohol intake: current alcohol intake frequency: other additional social history: drinks < 1/month
[2018-04-15] MEDS: Normal Saline Flush 10 ML SYR IVP (11:14)
[2018-04-15] MEDS: Normal Saline 500 ML IV (11:15)
--- NOTE | 2018-04-15 11:20 | PDOC.HHF2F ---
1. Encounter Date and Reason I certify that KAUR LORENZANA was seen by Scarlett Costello on 04/15/18 and that I had a [id number] encounter with this patient that meets the physician face to face encounter requirements. 2. Clinical Findings Supporting Skilled Need and Homebound Status I certify that home health services are medically necessary, include either intermittent senior living and/or physical/speech therapy, and that this patient is homebound in that absences from the home require considerable and taxing effort and are infrequent or of short duration, or are attributable to the need to receive medical care. [X] (a) Attached documentation from encounter provides clinical findings supporting skilled need and homebound status (including what assistance patient requires to leave the home). The encounter with the patient was in whole, or in part, for the following medical condition, which is the primary reason for home health care: SEPSIS DUE TO SUSPECTED CAP, transfusion dependent anemia, Parkinson's, diabetes, history of MGUS, history of colon cancer, history of prostate cancer, history of falls. Care Home: Needed to monitor medical conditions, assist with medication management, monitor for symptoms and education. Please draw CBC with differential on 04/18/2018 with results to PCP. Physical Therapy: Needed to continue to work on strength, safety and endurance status post hospitalization for community-acquired pneumonia with bacteremia. OT: Needed to assess/monitor home situation and make recommendations as needed. SHOP TECH: Needed to evaluate need for services and connected with resources in the community. Speech Therapy: Homebound: Unable to leave home without assistance. 3. Certification and Authentication I certify that I composed the above information based on my clinical judgement relating to this patient's medical condition and, if applicable, clinical findings communicated to me by the NPP or inpatient physician who performed the Home Health Referral. All further orders will be obtained through DR. COLON (Community Based Physician - PCP)
--- NOTE | 2018-04-15 11:24 | HHF2F_ITS ---
1. Encounter Date and Reason I certify that KAUR LORENZANA was seen by Scarlett Costello on 04/15/18 and that I had a [id number] encounter with this patient that meets the physician face to face encounter requirements. 2. Clinical Findings Supporting Skilled Need and Homebound Status I certify that home health services are medically necessary, include either intermittent care home and/or physical/speech therapy, and that this patient is homebound in that absences from the home require considerable and taxing effort and are infrequent or of short duration, or are attributable to the need to receive medical care. [X] (a) Attached documentation from encounter provides clinical findings supporting skilled need and homebound status (including what assistance patient requires to leave the home). The encounter with the patient was in whole, or in part, for the following medical condition, which is the primary reason for home health care: SEPSIS DUE TO SUSPECTED CAP, transfusion dependent anemia, Parkinson's, diabetes, history of MGUS, history of colon cancer, history of prostate cancer, history of falls. Retirement: Needed to monitor medical conditions, assist with medication management, monitor for symptoms and education. Please draw CBC with differential on 04/18/2018 with results to PCP. Physical Therapy: Needed to continue to work on strength, safety and endurance status post hospitalization for community-acquired pneumonia with bacteremia. OT: Needed to assess/monitor home situation and make recommendations as needed. MEDICAL SECRETARY: Needed to evaluate need for services and connected with resources in the community. Speech Therapy: Homebound: Unable to leave home without assistance. 3. Certification and Authentication I certify that I composed the above information based on my clinical judgement relating to this patient's medical condition and, if applicable, clinical findings communicated to me by the NPP or inpatient physician who performed the Home Health Referral. All further orders will be obtained through DR. COLON (Community Based Physician - PCP)
--- NOTE | 2018-04-15 12:16 | PT.INDS ---
Date of service: 04/15/18 Time of Service: 11:25 PT Notes Date: 04/15/18 Referring Doctor: Dr. Treva Huff PT Orders: PT CONSULT: eval and treat Precautions: Fall, contact Treatment Dates: 04/06/18 - 04/15/18 Patient Profile/Admitting Diagnosis: Patient admitted April 05 with complaints of fever and weakness. He was found to have influenza, and was subsequently admitted. He's participated in PT intervention 1-2x/day for 10 days, with a total of 17 sessions. PMHX: Parkinson's disease; DM; pancytopenia; liver cirrhosis; MGUS; GERD; hypertension Social History/Home Situation: Patient lives at the [facility] in an elevator accessible apartment. He has multiple assistive devices, stating that he typically gets around in a power chair. He occasionally uses a manual chair, and perform short distance ambulation with either an FW W or 4 WW. He has historically participated in an outpatient group exercise program, although states that he has not been in a few weeks. Current Functional Limitations: Patient reports significant weakness Equipment Owned/DME: Power chair, manual chair, FW W, 4 WW, handicap accessible apartment with elevator Subjective: Drake states that he is feeling quite a lot better. He is very anxious to get home, stating he has a cribbage game this afternoon that he does not want to miss. Objective: General Observation: Resting in chair with IV to left UE. Mental Status: A and O x3 Pain: Denies ROM: Right Upper Extremity: WFL Left Upper Extremity: WFL Right Lower Extremity: WFL Left Lower Extremity: WFL Strength: Right Upper Extremity: Shoulder flexion 4+/5. Biceps 4+/5. Triceps 4+/5. Drosophere Operator is strong and equal. Left Upper Extremity: Shoulder flexion 4+/5. Biceps 4+/5. Triceps 4+/5. Drosophere Operator is strong and equal. Right Lower Extremity: Hip flexion 4+/5. Quads 4/5. Hamstrings 4/5. Ankle dorsiflexion 5/5. Left Lower Extremity: Hip flexion 4+/5. Quads 4/5. Hamstrings 4/5. Ankle dorsiflexion 5/5. Sensation: Patient lacks sensation to light touch through the plantar aspect of both feet Bed Mobility/Transfers: Supine to sit: independent Sit to supine: independent Sit to stand: independent Stand to sit: independent Bed to chair: supervision, FW W Gait: Patient ambulates 6 feet x 2 with FW W, supervision during today's session, although has demonstrated ability to ambulate up to 100'x2 with CGA, and 75' with supervision, each with FWW (04/14/18). Balance: Static Sitting: Normal Dynamic Sitting: Normal Static Standing: Good Dynamic Standing: Good Treatment: Today's session consisted of re-evaluation, followed by instruction in a therapeutic exercise program. Patient is agitated throughout session due to scheduling concerns around his discharge, and treatment was limited as a result. He is able to progress his sit<->stand exercises to completion without UE support today. Assessment: Patient is a 78 year old male referred to physical therapy services with the diagnosis of influenza. He has demonstrated significant improvements in mobility over the past several days, and now demonstrates safety and independence consistent with baseline level of function. At this point, all rehab goals have been met, and patient is appropriate for D/C from PT services in acute care setting. I have recommended he participate in group exercise program at the [facility], which he has done in the past. Goals: Goals X1 week 1. Supine-Sit: Supervision (MET) 2. Sit-Supine: Supervision(MET) 3. Sit-Stand : Supervision(MET) 4. Stand-Sit : Supervision(MET) 5. Bed-Chair: Supervision with FW W (MET) 6. Chair-Bed : Supervision with FW W(MET) 7. Gait : Supervision with FW W times 50 feet(MET) Plan of Care/Treatment Plan: D/C from PT services in acute care setting DISCHARGE RECOMMENDATIONS: Home TREATMENT CODE/TIME: [id number] ([id number]) María Elena Patel, PT, DPT [facility]
== END 2018-04-15 12:06 | disposition home or self-care (01) | DRG 871 ==
LOC: ER 12:19 → MS 12:33
PROVIDERS: Surgery; Admitting Provider Internal Medicine; Emergency Provider Student in an Organized Health Care Education/Training Program; PCP Family Medicine; Visit Provider Internal Medicine
PROC: 0JPT0WZ Removal of Totally Implantable Vascular Access Device from Trunk Subcutaneous Tissue and Fascia, Open Approach (ICD-10-PCS; CPT 36590; principal; 2018-04-07 09:45)
DX: R78.81 Bacteremia (principal); J18.9 Pneumonia, unspecified organism; T80.211A Bloodstream infection due to central venous catheter, initial encounter; D61.818 Other pancytopenia; B95.1 Streptococcus, group B, as the cause of diseases classified elsewhere; B95.7 Other staphylococcus as the cause of diseases classified elsewhere; R26.2 Difficulty in walking, not elsewhere classified; E11.9 Type 2 diabetes mellitus without complications; Z79.4 Long term (current) use of insulin; D47.2 Monoclonal gammopathy; G20 Parkinson's disease; R01.1 Cardiac murmur, unspecified; D70.9 Neutropenia, unspecified; R50.81 Fever presenting with conditions classified elsewhere; I34.0 Nonrheumatic mitral (valve) insufficiency; I51.7 Cardiomegaly; R47.1 Dysarthria and anarthria; R13.11 Dysphagia, oral phase
CPT/HCPCS: 36590; 36415; 36430; 36569; 36591; 80048; 80053; 80076; 86850; 86900; 86901; 86920; 87040; 87077; 87449; 87631; 92610; 93306; 96361; 96365; 97110; 97162; 97166; 97530; 97535; 99222; 99223; 99232; 99233; 99239; 99252; 99254; 99285; G8996; NC; 70450; 71045; 71046; 81003; 81015; 83605; 83735; 85025; 85610; 86140; 86870; 86902; 87070; 87075; 87205; 94640; J0696; J2543; J3475; J7620; P9035

== ENCOUNTER → 2018-04-09 10:16 | Outpatient (BNVA) | payer MEDICARE, OTHER, SELFPAY ==
--- NOTE | 2018-04-15 14:09 | W.PM.PROGNOT ---
Date of Service Date of service: 04/15/18 Time of Service: 14:09 Assessment and Plan (1) CAP (community acquired pneumonia): Current visit: No Status: Acute s/p port removal for pos seeding. the site is c/d/i and well healed. no bruising or hematoma. -abx per hospitalists. -ok to shower -activity as tolerated -steri tapes will fall off on there own -F/u prn or in 6 wks time if need another port inserted (2) Streptococcal bacteremia: Current visit: No Status: Acute as above Subjective Patient reports: no new complaints Interval history since last seen: pt is being d/c home today. He has a snf peripheral catheter in place- and this can be used for infusion. Sx site is C/D/I. no bleeding or brusing Exam Skin General skin exam: no rashes or lesions noted Other: incision site is C/D/I and well healed
== END ==
PROVIDERS: PCP Family Medicine; Visit Provider Psychiatry & Neurology Neurology
DX: R69 Illness, unspecified (principal)
CPT/HCPCS: NC

== ENCOUNTER → 2018-04-22 12:13 | Outpatient (BNVA) | payer OTHER, SELFPAY | PROVIDERS: PCP Family Medicine; Visit Provider Psychiatry & Neurology Neurology | DX: G20 Parkinson's disease (principal); E11.40 Type 2 diabetes mellitus with diabetic neuropathy, unspecified; I10 Essential (primary) hypertension | CPT/HCPCS: 99213 ==

== ENCOUNTER 2018-04-30 01:22 | Outpatient (CLI) | payer OTHER, SELFPAY ==
--- NOTE | 2018-04-30 08:26 | DI.US_ITS ---
SYMPTOM/DIAGNOSIS: INGUINAL PAIN, LEFT R10.32 LEFT INGUINAL ULTRASOUND: The left lower quadrant and left inguinal region were evaluated sonographically. No sonographic evidence of a left lower quadrant or left inguinal hernia are noted sonographically. IMPRESSION: No sonographic evidence of a left lower quadrant abdominal wall hernia or left inguinal hernia.
== END 2018-04-30 01:42 ==
PROVIDERS: PCP Family Medicine; Visit Provider Nurse Practitioner Family
DX: R10.32 Left lower quadrant pain (principal)
CPT/HCPCS: 76857

== ENCOUNTER 2018-04-30 01:58 | Outpatient (RCR) | payer OTHER, SELFPAY ==
[2018-04-30 07:37] LABS: Abs Immature Grans 0.01 k/cumm (0.0-0.09); Absolute Eosinophil Count 0.04 k/cumm (0.0-0.7); Absolute Lymphocyte Count 0.32 k/cumm (1.2-3.4); Absolute Monocyte Count 0.44 k/cumm (0.11-0.7); Absolute Neutrophil Count 3.94 k/cumm (1.2-6.7); Eosinophils % 0.8; HCT 30.1 % (40.0-50.0); Immature Grans % 0.2; Lymphocytes % 6.7; Mean Corp. HGB Concentration 33.2 g/dL (32.0-36.0); Mean Corpuscular Hemoglobin 29.1 pg (27.0-33.0); Mean Corpuscular Volume 87.5 fL (80-95); Mean Platelet Volume 10.6 fL (8.0-11.0); Monocytes % 9.3; RBC 3.44 m/cumm (4.50-6.00); RBC Distribution Width 14.7 % (11.8-14.1); White Blood Cell Count 4.75 k/cumm (4.4-10.8)
[2018-04-30 08:08] LABS: Platelet Count 43 x1000/uL (130-400)
[2018-04-30 08:11] LABS: AST 23 U/L (15-37); Albumin 2.9 g/dL (3.4-5.0); Alkaline Phosphatase 125 U/L (46-116); Anion Gap 8.4 mmol/L (3-11); BUN 15 mg/dL (7-18); Bilirubin, Total 2.2 mg/dL (0.2-1.0); CO2 26.6 mmol/L (21.0-32.0); CREATININE 1.01 mg/dL (0.70-1.30); Calcium 8.3 mg/dL (8.5-10.1); Chloride 102 mmol/L (98-107); Cholesterol 117 mg/dL (50-200); Ferritin 61 ng/mL (8-388); Glucose 124 mg/dL (70-100); HDL Cholesterol 54 mg/dL (40-60); LDL CHOLESTEROL 54 mg/dL (<100); Sodium 137 mmol/L (136-145); Total Protein 6.8 g/dL (6.4-8.2); Triglyceride 77 mg/dL (30-150)
[2018-04-30 08:12] LABS: Diff Comment RBC Morph Reviewed; Microcytosis 3+; Ovalocytes 2+; Target Cells 2+
[2018-04-30 08:13] LABS: ALT < 6 U/L (12-78)
[2018-05-01 09:45] LABS: PSA, Diagnostic 16.8 ng/ml (0-6.5)
== END 2018-05-17 23:59 | disposition home or self-care (01) ==
LOC: INF 01:58
PROVIDERS: PCP Family Medicine; Visit Provider Internal Medicine
DX: C61 Malignant neoplasm of prostate (principal); D50.0 Iron deficiency anemia secondary to blood loss (chronic); D47.2 Monoclonal gammopathy; I10 Essential (primary) hypertension
CPT/HCPCS: 36415; 80053; 80061; 83721; 84153; 82728; 85025

== ENCOUNTER 2018-06-01 01:33 | Outpatient (RCR) | payer OTHER, SELFPAY ==
[2018-06-01 07:20] LABS: Absolute Basophil Count 0.01 k/cumm (0.0-0.2); Absolute Eosinophil Count 0.06 k/cumm (0.0-0.7); Absolute Lymphocyte Count 0.18 k/cumm (1.2-3.4); Absolute Monocyte Count 0.13 k/cumm (0.11-0.7); Absolute Neutrophil Count 0.73 k/cumm (1.2-6.7); Basophils % 0.9; Eosinophils % 5.4; HGB 9.1 g/dL (13.5-17.5); Lymphocytes % 16.2; Mean Corp. HGB Concentration 32.5 g/dL (32.0-36.0); Mean Corpuscular Hemoglobin 28.3 pg (27.0-33.0); Mean Corpuscular Volume 87.2 fL (80-95); Mean Platelet Volume 10.8 fL (8.0-11.0); Monocytes % 11.7; Neutrophils % 65.8; RBC 3.21 m/cumm (4.50-6.00); RBC Distribution Width 14.3 % (11.8-14.1)
[2018-06-01 08:10] LABS: Platelet Count 53 x1000/uL (130-400); White Blood Cell Count 1.11 k/cumm (4.4-10.8)
[2018-06-01 08:11] LABS: Ovalocytes 2+
== END 2018-06-16 23:59 | disposition home or self-care (01) ==
LOC: INF 01:33
PROVIDERS: PCP Family Medicine; Visit Provider Internal Medicine
DX: D50.0 Iron deficiency anemia secondary to blood loss (chronic) (principal); C61 Malignant neoplasm of prostate; D47.2 Monoclonal gammopathy; Z45.2 Encounter for adjustment and management of vascular access device
CPT/HCPCS: 36415; 86900; 86901; 85025

== ENCOUNTER 2018-07-07 01:03 | Outpatient (RCR) | payer OTHER, SELFPAY ==
[2018-07-07 07:22] LABS: Absolute Basophil Count 0.01 k/cumm (0.0-0.2); Absolute Eosinophil Count 0.04 k/cumm (0.0-0.7); Absolute Lymphocyte Count 0.23 k/cumm (1.2-3.4); Absolute Monocyte Count 0.12 k/cumm (0.11-0.7); Absolute Neutrophil Count 0.64 k/cumm (1.2-6.7); Eosinophils % 3.8; HCT 26.4 % (40.0-50.0); HGB 8.4 g/dL (13.5-17.5); Lymphocytes % 22.1; Mean Corp. HGB Concentration 31.8 g/dL (32.0-36.0); Mean Corpuscular Hemoglobin 26.9 pg (27.0-33.0); Mean Corpuscular Volume 84.6 fL (80-95); Mean Platelet Volume 11.4 fL (8.0-11.0); Monocytes % 11.5; Neutrophils % 61.6; RBC 3.12 m/cumm (4.50-6.00); RBC Distribution Width 14.4 % (11.8-14.1)
[2018-07-07 08:09] LABS: Platelet Count 49 x1000/uL (130-400); White Blood Cell Count 1.04 k/cumm (4.4-10.8)
[2018-07-07 08:10] LABS: Diff Comment Diff Reviewed; Hypochromasia 1+; Ovalocytes 2+
== END 2018-07-17 23:59 | disposition home or self-care (01) ==
LOC: INF 01:03
PROVIDERS: PCP Family Medicine; Visit Provider Internal Medicine
DX: D47.2 Monoclonal gammopathy (principal)
CPT/HCPCS: 36415; 86900; 86901; 85025

== ENCOUNTER → 2018-07-27 09:09 | Outpatient (BNVA) | payer OTHER, SELFPAY | PROVIDERS: PCP Family Medicine; Visit Provider Psychiatry & Neurology Neurology | DX: G20 Parkinson's disease (principal); E11.42 Type 2 diabetes mellitus with diabetic polyneuropathy; I10 Essential (primary) hypertension; G25.81 Restless legs syndrome; R10.2 Pelvic and perineal pain; Z79.4 Long term (current) use of insulin | CPT/HCPCS: 99214 ==

== ENCOUNTER 2018-07-27 20:25 | Inpatient (IN) | payer OTHER, SELFPAY ==
[2018-07-27 20:27] VITALS: BP 162/66; PULSE 94; RESP 16; TEMP 37.7; O2SAT 99
--- NOTE | 2018-07-27 20:29 | W.ED.GENAD ---
Discharge Plan Disposition Patient Disposition: [facility] INPATIENT Condition: Stable Discharge Details Chief Complaint: Cellulitis Clinical Impression: Perirectal abscess Primary Care Provider: Joanne Riggins ED Provider: Brandon Agrawal Home Meds and New Rx's Prescriptions: No Action melatonin 5 MG tablet 5 mg PO HS RF: 0 carbidopa-levodopa 25-100 mg tablet extended release 2 tab PO QID Qty: 240 RF: 11 pantoprazole 40 MG tablet,delayed release (DR/EC) 40 mg PO BID RF: 0 carvedilol 3.125 MG tablet 3.125 mg PO BID RF: 0 Novolog Flexpen U-100 Insulin 300 UNITS/3 ML insulin pen Sub-Q AC RF: 0 magnesium oxide 250 mg magnesium tablet 500 mg PO DAILY RF: 0 tramadol 50 mg tablet 25 mg PO .am PRN (Reason: Pain) RF: 0 Medical Decision Making 78 year old male with PMHx of Parkinson's disease, cirrhosis of the liver, MGUS, and pancytopenia, who used to have a port in place for transfusions but was removed when he had bacteremia, who had a perirectal abscess in 2013, who comes in with chief complaint of rectal pain for several days. He has not noted any high temperatures at home, no abdominal pain. Denies any bleding. On exam he does have a 2x2cm fluctuance at the rectal opening on the left side without drainage with about 2cm of surrounding erythema. No abodminal tenderness and on internal rectal exam no internal masses noted. Will obtain CT to eval for depth of abscess labs show no acute findings, ct shows abscess and other nonemergent findings. I spoke with Dr. Littlejohn who will admit the patient for iv abx and plan for drainage tomorrow. Differential Diagnosis hemorrhoid, abscess, fissure Medical Records Medical records reviewed: Yes I reviewed the patient's medical records. Imaging Data Radiologic Study: Attestation: I personally reviewed and interpreted this imaging study as follows: Imaging: CT Scan Radiologist's impression: IMPRESSION: 1. Mural thickening of the rectum with focal ovoid 2.9 cm hypodense fluid collection within the medial left gluteal soft tissues inferior to the rectum, phlegmon versus developing abscess. 2. Nonfocal mural thickening of the duodenum with surrounding mesenteric stranding. May represent infectious/inflammatory etiology such as duodenitis, correlate clinically. 3. Nodular contour of the liver consistent with cirrhosis with varices as discussed and mild perihepatic and perisplenic as well as abdominal ascites. 4. Splenomegaly. 5. There are multiple nonspecific nonpathologic but prominent lymph nodes in the mesentery. There are no mesenteric lymph nodes of pathologic dimensions. There is a diffuse inflammatory stranding throughout the central mesentery as well. These findings are nonspecific, and most likely represent a viral adenitis. This vivek mesentery can be an early manifestation of mesenteric neoplasm, however, and a follow up examination is recommended as clinically warranted. 6. Moderate hiatal hernia. 7. Subtle focal ovoid hypoattenuation of the inferior, posterior right hepatic lobe measuring up to 3.1 cm in diameter. Correlation with multiphasic imaging of the liver as clinically warranted. Lab Data Lab results reviewed: Yes I reviewed the patient's lab results. HPI General Mode of arrival: wheelchair. Date/Time Provider Initiated Documentation: 07/27/18 20:27. Limitations to Documentation: no limitations. Information obtained by: patient. History of Present Illness 78 year old M presents to the emergency department with the chief complaint of rectal pain, described as moderate, Patient started experiencing this day(s) (3) and it has been constant. No relieving factors improve symptom(s), No exacerbating factors reported . Patient notes no other symptoms.. Patient did receive the following treatments prior to arrival, none Related Data Home Medications Medication Instructions Recorded Confirmed pantoprazole 40 mg PO BID 11/27/12 07/27/18 carvedilol 3.125 mg PO BID 05/30/13 07/27/18 melatonin 5 mg PO HS 08/27/17 07/27/18 Novolog Flexpen U-100 Insulin 0 units SUB-Q AC 04/05/18 07/27/18 magnesium 250 mg (as magnesium 500 mg PO DAILY 04/22/18 07/27/18 oxide) tablet tramadol 50 mg tablet 25 mg PO .am PRN tab 04/22/18 07/27/18 carbidopa ER 25 mg-levodopa 100 mg 2 tab PO QID #240 tab 07/21/18 07/27/18 tablet,extended release Previous Rx's Medication Instructions Recorded carbidopa ER 25 mg-levodopa 100 mg 2 tab PO QID #240 tab 07/21/18 tablet,extended release Allergies Allergy/AdvReac Type Severity Reaction Status Date / Time leuprolide acetate Allergy Severe Swelling/Ed Verified 07/27/18 20:35 [From Lupron] isabelle adhesive Allergy Intermediate Skin Rash Verified 07/27/18 20:35 enalapril [Enalapril] AdvReac Severe Hyperkalemi Verified 07/27/18 20:35 a aspirin AdvReac Intermediate Verified 07/27/18 20:35 esomeprazole magnesium AdvReac Intermediate Diarrhea Verified 07/27/18 20:35 [From Nexium] metformin AdvReac Intermediate Diarrhea Verified 07/27/18 20:35 acetaminophen AdvReac Mild Diarrhea Verified 07/27/18 20:35 General SHEKHAR: 3 Review of Systems Review of Systems All systems reviewed & are unremarkable except as noted in HPI and below Constitutional Denies weakness Cardiovascular Denies chest pain and Denies dyspnea Respiratory Denies cough and Denies dyspnea Gastrointestinal Denies abdominal pain, Denies nausea and Denies vomiting Integumentary/Breasts Denies rash Neurologic Denies weakness PFS Social History Smoking/Tobacco Use Status: Former Tobacco Use Alcohol Intake: former Drug use: Never Household members: none Housing: apartment Do you feel safe at home: Yes Do you feel safe in your relationship?: Yes Additional Social history: drinks < 1/month Exam Const General: no acute distress Orientation: alert HENMT Head: normal to inspection Ears: external ears normal General nose exam: external nose normal Mouth: moist mucous membranes Eyes General: appearance normal, both eyes and all related structures Neck Neck: normal visual inspection Resp Effort & Inspection: normal respiratory effort and able to speak in complete sentences Cardio Rate: regular rate GI Inspection: normal to inspection Skin General skin exam: no rashes or lesions noted Neuro General: alert and oriented x3 Extrem General: normal to inspection Psych Mental Status: mental status grossly normal
--- NOTE | 2018-07-27 20:39 | DI.CT_ITS ---
SYMPTOM/DIAGNOSIS: RECTAL PAIN, ? ABSCESS CT ABDOMEN AND PELVIS: The study was conducted according to the usual protocol with intravenous administration of 100 cc Omnipaque 350. Small regions of bibasilar atelectasis are identified. Note is also made of a small hiatus hernia which appears stable. The liver margin is nodular in appearance. Findings consistent with cirrhosis. There is a 1.2 cm hypodensity within the medial inferior right hepatic lobe which likely represents an hepatic cyst. Within the posterior inferior right hepatic lobe there is a very subtle more focal ovoid hypoattenuation measuring up to 3 cm in transverse x 3.1 cm in AP diameter. The patient is status post cholecystectomy. Some dilatation of the common duct likely on the post surgical basis. The pancreas is unremarkable. The spleen is enlarged measuring up to 17.9 cm. The adrenals are unremarkable. There is no significant interval change in the kidneys with bilateral renal cysts the largest of which is in the right kidney measuring 47 mm in diameter. Punctate bilateral nephrolithiasis is demonstrated. There is no hydronephrosis. The ureters are normal. There is re-demonstration of an anastomotic chain suture within the central abdomen. Mural thickening of the duodenum with surrounding mesenteric stranding is identified. The degree of mesenteric stranding is similar to the prior study. There is no evidence of bowel obstruction. There is no focal bowel abnormality of the rectum. Within the medial left gluteal soft tissues just inferior to the rectum there is an ovoid 2.9 cm oblique x 1.9 cm AP hypodense fluid collection. There is nothing to suggest an acute appendix. The bladder is nondistended. The reproductive organs as visualized are unremarkable. There is mild low attenuation abdominal ascites as well as low attenuation of the perihepatic and perisplenic ascites. There is no pneumoperitoneum. There is no acute fracture. There is apparent stable moderate anterior compression of L3. There is some interval increase in the size of a left paramedian abdominal wall fat containing hernia. There are no herniated bowel loops. Note is made of varices in the anterior abdominal wall. There has been a mild interval increase in the size of a left paramedian anterior abdominal wall hernia. There are no herniated bowel loops. A focal soft tissue nodular thickening of the ventral midline and superior abdominal wall is unchanged. Note is made of varices within anterior abdominal wall and subcutaneous fat also. 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 There are mild atherosclerotic calcifications of the abdominal aorta without evidence of an aneurysm. Note is made of several prominent mesenteric lymph nodes similar to a prior examination. No pathologically enlarged retroperitoneal lymph nodes are seen. SUMMARY: Mural thickening of the rectum with a focal 2.9 cm hypodense fluid collection is identified in the medial left gluteal soft tissues inferior to the rectum. This could represent a phlegmon versus developing abscess. Mural thickening of the duodenum is identified with surrounding mesenteric stranding. This could represent infectious or inflammatory etiology such as duodenitis. Note is also made of a nodular contour of the liver consistent with cirrhosis and varices are demonstrated as discussed above. No splenomegaly. There are multiple nonspecific prominent lymph nodes in the mesentery. There are no pathologically enlarged lymph nodes. Inflammatory stranding is noted throughout the central mesentery as well. These findings are nonspecific but could represent viral adenitis. A moderate size hiatal hernia is demonstrated. Note is made of a focal hypoattenuation in the inferior posterior right hepatic lobe measuring up to 3.1 cm in diameter. This finding could be correlated with a multi-phasic CT.
[2018-07-27] MEDS: Normal Saline Flush 10 ML SYR IVP (20:50)
[2018-07-27 21:01] LABS: Lactate-non-spesis 1.6 mmol/l (0.6-1.4)
[2018-07-27 21:08] LABS: Absolute Basophil Count 0.01 k/cumm (0.0-0.2); Absolute Eosinophil Count 0.06 k/cumm (0.0-0.7); Absolute Lymphocyte Count 0.23 k/cumm (1.2-3.4); Absolute Monocyte Count 0.18 k/cumm (0.11-0.7); Absolute Neutrophil Count 0.88 k/cumm (1.2-6.7); Basophils % 0.7; Eosinophils % 4.4; HCT 25.1 % (40.0-50.0); HGB 7.9 g/dL (13.5-17.5); Lymphocytes % 16.9; Mean Corp. HGB Concentration 31.5 g/dL (32.0-36.0); Mean Corpuscular Hemoglobin 26.1 pg (27.0-33.0); Mean Corpuscular Volume 82.8 fL (80-95); Mean Platelet Volume 12.2 fL (8.0-11.0); Monocytes % 13.2; Neutrophils % 64.8; RBC 3.03 m/cumm (4.50-6.00); RBC Distribution Width 14.8 % (11.8-14.1)
[2018-07-27] MEDS: Omnipaque 350 MG/ML 100 ML BTL IJ (21:12)
[2018-07-27] MEDS: Normal Saline 1,000 ML 1000 ML IV (21:15)
[2018-07-27] MEDS: Ketorolac 15 MG/ML VIAL IVP (21:16)
[2018-07-27 21:17] LABS: ALT 15 U/L (12-78); AST 24 U/L (15-37); Albumin 2.7 g/dL (3.4-5.0); Alkaline Phosphatase 184 U/L (46-116); Anion Gap 9.7 mmol/L (3-11); BUN 10 mg/dL (7-18); Bilirubin, Total 0.8 mg/dL (0.2-1.0); CO2 22.3 mmol/L (21.0-32.0); CREATININE 1.01 mg/dL (0.70-1.30); Chloride 108 mmol/L (98-107); Glucose 197 mg/dL (70-100); Potassium 4.1 mmol/L (3.5-5.1); Sodium 140 mmol/L (136-145); Total Protein 6.1 g/dL (6.4-8.2)
[2018-07-27 21:18] VITALS: BP 146/57; PULSE 70; RESP 16; TEMP 37.4; O2SAT 96
[2018-07-27 21:29] LABS: White Blood Cell Count 1.36 k/cumm (4.4-10.8)
[2018-07-27 21:31] LABS: INR 1.3 (0.9-1.1); PTT Activated 27.2 sec (21.0-31.4); Prothrombin Time 12.7 sec (9.3-11.0)
[2018-07-27 21:39] LABS: Anisocytosis 2+; Diff Comment Diff Reviewed; Hypochromasia 1+; Polychromasia Present
[2018-07-27 21:40] LABS: Platelet Count 45 x1000/uL (130-400); Poikilocytes 1+
--- NOTE | 2018-07-27 22:05 | DI.VRAD_ITS ---
EXAM: CT Abdomen and Pelvis With Contrast EXAM DATE/TIME: 07/27/2018 8:50 PM CLINICAL HISTORY: 78 years old, male; Patient HX: Rectal pain; Additional info: ? Abscess TECHNIQUE: Imaging protocol: Axial computed tomography images of the abdomen and pelvis with intravenous contrast. Coronal and sagittal reformatted images were created and reviewed. COMPARISON: CT ABDOMEN PELVIS W 02/21/2018 5:01 PM FINDINGS: Lungs: Linear opacities in the lung bases consistent with mild basilar atalectasis. Mediastinum: There is moderate hiatal hernia, essentially stable. ABDOMEN: Liver: There is nodular contour of the liver consistent with cirrhosis. There is focal 1.2 cm hypodensity within the medial, inferior right hepatic lobe with simple fluid attenuation consistent with benign hepatic cyst. Within the posterior, inferior right hepatic lobe, there is very subtle, more focal ovoid hypoattenuation measuring 3.0 cm transverse by 3.1 cm AP (series 4, image 33). Gallbladder and bile ducts: Gallbladder is surgically absent with mild, expected degree of common bile duct dilation. Pancreas: Unremarkable. No ductal dilation. Spleen: The spleen is enlarged measuring 17.9 cm craniocaudad, no splenic mass. Adrenals: Unremarkable. No mass. Kidneys and ureters: No significant interval change in bilateral renal cysts, largest within the right kidney measuring up to 4.7 cm in diameter. Redemonstrated punctate bilateral nephroliths measuring up to 3 mm in diameter. No hydronephrosis. Ureters are normal in course and caliber. Stomach and bowel: Redemonstrated anastomotic chain suture within the central abdomen. There is mural thickening of the duodenum with surrounding mesenteric stranding. Degree of mesenteric stranding is similar to prior. No bowel obstruction. There is focal mural thickening of the rectum. Within the medial left gluteal soft tissues, just inferior to the rectum, there is ovoid 2.9 cm oblique transverse by 1.9 cm oblique AP hypodense fluid collection. Appendix: Not definitively visualized, no secondary findings of acute appendicitis. PELVIS: Bladder: Bladder is nondistended limiting evaluation. Reproductive: Unremarkable as visualized. ABDOMEN and PELVIS: Intraperitoneal space: Mild low-attenuation abdominal ascites as well as low attenuation perihepatic and perisplenic ascites. No pneumoperitoneum. Bones/joints: No acute fracture. No dislocation. Stable moderate anterior compression deformity of L3. Soft tissues: Mild interval increase in size of that containing left paramedian anterior abdominal wall hernia, no definite herniated loops of bowel. Focal soft tissue nodular thickening of the ventral, midline and superior abdominal wall is stable. Vasculature: Varices within the anterior abdominal wall subcutaneous fat are seen. Also noted are splenorenal varices. There are mild scattered atherosclerotic calcifications of the abdominal aorta and its major branches, no abdominal aortic aneurysm. Lymph nodes: There are several prominent mesenteric lymph nodes, similar to prior, nonpathologic by size criteria. No pathologically enlarged retroperitoneal lymph nodes. IMPRESSION: 1. Mural thickening of the rectum with focal ovoid 2.9 cm hypodense fluid collection within the medial left gluteal soft tissues inferior to the rectum, phlegmon versus developing abscess. 2. Nonfocal mural thickening of the duodenum with surrounding mesenteric stranding. May represent infectious/inflammatory etiology such as duodenitis, correlate clinically. 3. Nodular contour of the liver consistent with cirrhosis with varices as discussed and mild perihepatic and perisplenic as well as abdominal ascites. 4. Splenomegaly. 5. There are multiple nonspecific nonpathologic but prominent lymph nodes in the mesentery. There are no mesenteric lymph nodes of pathologic dimensions. There is a diffuse inflammatory stranding throughout the central mesentery as well. These findings are nonspecific, and most likely represent a viral adenitis. This vivek mesentery can be an early manifestation of mesenteric neoplasm, however, and a follow up examination is recommended as clinically warranted. 6. Moderate hiatal hernia. 7. Subtle focal ovoid hypoattenuation of the inferior, posterior right hepatic lobe measuring up to 3.1 cm in diameter. Correlation with multiphasic imaging of the liver as clinically warranted. Dictated and Authenticated by: Nikita Olivarez MD. Ordering:LISSETTE Taylor MD
[2018-07-27] MEDS: HYDROmorphone 2 MG/ML VIAL 1 MG IVP (22:20)
[2018-07-27] MEDS: PIPERACILLIN/TAZO 4.5 GM in Normal Saline 100 ML IVPB (22:22)
--- NOTE | 2018-07-27 22:22 | W.PM.HP.N ---
Date of service: 07/27/18 Time of Service: 22:22 Assessment and Plan (1) Perirectal abscess: Current visit: Yes Status: Acute plan iv abx I & D in OR/ supine positioning risks: bleeding/damage to sphincters resulting in loss of control /anesthesia comp History of Present Illness Narrative: rectal abscess at approx 7oclock position in reverse anatomical. no fever/chills. + drainage and pain. has had in past. pt had had colon cancer in the . Gets yearly CE's. pt had sepsis in March. Has been tired and week since. off of insulin b/c lost wt in Mar. Still not eating much. no n/v. no CP or SOB. mild ascites of abdom. low wbc/hgb/plt is due to liver cirrhosis. He only occ gets nose bleeds when it is dry. He has had mult surgeries and no problems w/ anethesia in the past. Review of Systems Review of Systems All systems reviewed & are unremarkable except as noted in HPI and below Constitutional Reports as per HPI, Reports system reviewed and no additional complaints, except as docu, Denies anorexia, Denies chills, Denies difficulty sleeping, Denies fatigue, Denies headache(s), Denies lethargy, Denies malaise, Denies poor appetite, Denies weakness, Denies weight gain and Denies weight loss Eyes Reports as per HPI, Reports system reviewed and no additional complaints, except as docu and Denies change in vision ENT Reports system reviewed and no additional complaints, except as docu, Reports as per HPI, Denies change in voice, Denies dental pain, Denies dysphagia, Denies dizziness, Denies facial pain, Denies headache(s) and Denies odynophagia Cardiovascular Reports as per HPI, Reports system reviewed and no additional complaints, except as docu, Denies chest pain, Denies chest pain with activity, Denies syncope, Denies leg edema and Denies dyspnea Respiratory Reports as per HPI, Reports system reviewed and no additional complaints, except as docu, Denies chest congestion, Denies cough, Denies pain with cough and Denies dyspnea Gastrointestinal Reports as per HPI, Reports system reviewed and no additional complaints, except as docu, Denies abdominal pain, Denies bloating, Denies change in bowel habits, Denies change in stool character, Denies constipation, Denies cramping, Denies dysphagia, Denies early satiety, Denies heartburn, Denies diarrhea, Denies nausea, Denies odynophagia and Denies vomiting Comments: cirrhosis and abdominal ascites krystal- rectal abcess Genitourinary Reports system reviewed and no additional complaints, except as docu Musculoskeletal Reports system reviewed and no additional complaints, except as docu, Reports as per HPI, Denies abnormal gait, Denies arthralgias and Denies muscle weakness Integumentary/Breasts Reports system reviewed and no additional complaints, except as docu, Reports as per HPI, Denies changing lesions, Denies new lesions and Denies jaundice Neurologic Reports system reviewed and no additional complaints, except as docu, Reports as per HPI, Denies abnormal speech, Denies abnormal gait, Denies dizziness, Denies syncope, Denies headache(s), Denies memory loss and Denies weakness Psychiatric Reports system reviewed and no additional complaints, except as docu, Reports as per HPI, Denies change in appetite and Denies memory loss Endocrine Denies fatigue, Denies polydipsia and Denies polyuria Hematologic/Lymphatic Reports system reviewed and no additional complaints, except as docu, Reports easy bleeding and Reports easy bruising Comments: long standing hx of low plt/anemia/low WBC Allergic/Immunologic Denies system reviewed and no additional complaints, except as docu, Reports as per HPI and Denies urticaria PFSH Medical History Esophageal varices (Chronic) Pancytopenia (Chronic) Ventral hernia (Chronic) DM (diabetes mellitus) GERD (gastroesophageal reflux disease) HTN (hypertension) IBS (irritable bowel syndrome) Iron deficiency anemia Liver cirrhosis HANS (obstructive sleep apnea) Parkinson disease Surgical History H/O ventral hernia repair (Chronic) History of Leonid fundoplication (Chronic) History of bowel resection (Chronic) BONE MARROW BIOPSY (11/25/14) Colectomy colonoscopy (11/21/15) Family History Maternal Cousin Colon cancer Maternal Cousin Colon cancer Social History Smoking/Tobacco Use Status: Former Tobacco Use Alcohol Intake: former Drug use: Never Household members: none Housing: apartment Do you feel safe at home: Yes Do you feel safe in your relationship?: Yes Additional Social history: drinks < 1/month Meds Home Medications Medication Instructions Recorded Confirmed Type pantoprazole 40 mg PO BID 11/27/12 07/27/18 History carvedilol 3.125 mg PO BID 05/30/13 07/27/18 History melatonin 5 mg PO HS 08/27/17 07/27/18 History Novolog Flexpen U-100 Insulin 0 units SUB-Q AC 04/05/18 07/27/18 History magnesium 250 mg (as magnesium 500 mg PO DAILY 04/22/18 07/27/18 History oxide) tablet tramadol 50 mg tablet 25 mg PO .am PRN tab 04/22/18 07/27/18 History carbidopa ER 25 mg-levodopa 100 mg 2 tab PO QID #240 tab 07/21/18 07/27/18 Rx tablet,extended release Allergies Allergy/AdvReac Type Severity Reaction Status Date / Time leuprolide acetate Allergy Severe Swelling/Ed Verified 07/27/18 20:35 [From Lupron] isabelle adhesive Allergy Intermediate Skin Rash Verified 07/27/18 20:35 enalapril [Enalapril] AdvReac Severe Hyperkalemi Verified 07/27/18 20:35 a aspirin AdvReac Intermediate Verified 07/27/18 20:35 esomeprazole magnesium AdvReac Intermediate Diarrhea Verified 07/27/18 20:35 [From Nexium] metformin AdvReac Intermediate Diarrhea Verified 07/27/18 20:35 acetaminophen AdvReac Mild Diarrhea Verified 07/27/18 20:35 Exam Const General: cooperative, healthy appearing, comfortable, no acute distress, well developed and well groomed Nutritional Appearance: average body habitus and well nourished Orientation: alert, awake and oriented x3 Other: no fever chills. no n/v. denies trauma has hx of abscess- rectal in past [facility] Head: normal to inspection, normocephalic and atraumatic Ears: hearing grossly normal bilaterally and external ears normal General nose exam: external nose normal Face and sinus: normal facial exam and sinuses nontender Mouth: oral mucosae normal, lip normal, tongue normal and moist mucous membranes Teeth and gingiva: edentulous Eyes General: appearance normal, both eyes and all related structures Conjunctivae: conjunctivae normal Sclera: sclerae normal Pupils: PERRL Neck Neck: normal visual inspection and full ROM Chest Chest: normal inspection of the chest Resp Effort & Inspection: normal respiratory effort, able to speak in complete sentences, no cough, no nasal flaring, not tachypneic and no use of accessory muscles Auscultation: clear to auscultation bilaterally, no rales, no rhonchi and no wheezes Cardio Jugular venous pressure: no JVD Rate: regular rate Rhythm: regular rhythm GI Inspection: normal to inspection, no edema and non-distended Palpation: soft, no masses, nontender and ascites Auscultation: normal bowel sounds Other: mild ascties. post surgical changes noted. soft and no pain pt won't be able to lie prone Skin General skin exam: no rashes or lesions noted Trauma: no lacerations or abrasions Other: no open lesions. mult mult scars on arms from picking bruises easily Neuro General: alert, oriented x3, oriented, gait normal, moves all extremities, no focal motor deficits and CN's II-XI intact bilaterally Cognition: normal cognition Speech: speech normal Gait: normal gait Motor: muscle tone normal throughout Extrem General: normal to inspection, full ROM and no clubbing, cyanosis or edema Psych Appearance: grossly normal and well kempt Mental Status: mental status grossly normal Speech and Movement: speech and movement normal Affect: normal affect Results Labs : 07/28/18 06:35 07/27/18 20:50 Laboratory Results - last 24 hr 07/27/18 07/27/18 07/27/18 20:50 20:50 20:50 WBC 1.36 L* RBC 3.03 L Hgb 7.9 L Hct 25.1 L MCV 82.8 MCH 26.1 L MCHC 31.5 L RDW 14.8 H Plt Count 45 L MPV 12.2 H Immature Gran % 0.0 Neutrophils % 64.8 Lymphocytes % 16.9 Monocytes % 13.2 Eosinophils % 4.4 Basophils % 0.7 Absolute Neutrophils 0.88 L Absolute Lymphocytes 0.23 L Absolute Monocytes 0.18 Absolute Eosinophils 0.06 Absolute Basophils 0.01 Differential Comment Diff reviewed RBC Morphology See below Polychromasia Present Hypochromasia 1+ Poikilocytosis 1+ Anisocytosis 2+ PT INR APTT Sodium 140 Potassium 4.1 Chloride 108 H Carbon Dioxide 22.3 Anion Gap 9.7 BUN 10 Creatinine 1.01 Estimated GFR/1.73 m2 >= 60.00 Glucose 197 H Lactate 1.6 H Calcium 8.0 L Total Bilirubin 0.8 AST 24 ALT 15 Alkaline Phosphatase 184 H Total Protein 6.1 L Albumin 2.7 L 07/27/18 20:50 WBC RBC Hgb Hct MCV MCH MCHC RDW Plt Count MPV Immature Gran % Neutrophils % Lymphocytes % Monocytes % Eosinophils % Basophils % Absolute Neutrophils Absolute Lymphocytes Absolute Monocytes Absolute Eosinophils Absolute Basophils Differential Comment RBC Morphology Polychromasia Hypochromasia Poikilocytosis Anisocytosis PT 12.7 H INR 1.3 H APTT 27.2 Sodium Potassium Chloride Carbon Dioxide Anion Gap BUN Creatinine Estimated GFR/1.73 m2 Glucose Lactate Calcium Total Bilirubin AST ALT Alkaline Phosphatase Total Protein Albumin Last Vital Signs Temp 37.4 C 07/27/18 21:18 Pulse 70 07/27/18 21:18 Resp 16 07/27/18 21:18 BP 146/57 H 07/27/18 21:18 Pulse Ox 96 07/27/18 21:18
[2018-07-27] MEDS: Normal Saline 1,000 ML 125 ML IV (22:40)
[2018-07-27 22:42] VITALS: BP 139/65; PULSE 88; RESP 17; TEMP 36.7; O2SAT 96
[2018-07-27 23:41] VITALS: BP 141/65; PULSE 87; RESP 20; TEMP 37.7; O2SAT 94
[2018-07-28] VITALS (11 sets, daily range): BP systolic 113–147; BP diastolic 47–79; PULSE 65–87; RESP 16–21; TEMP 36.3–37.7; O2SAT 92–99
[2018-07-28] MEDS: Normal Saline 1,000 ML 125 ML IV ×3 (00:17→19:37)
[2018-07-28] MEDS: PIPERACILLIN/TAZO 3.375 GM in Normal Saline 50 ML IVPB ×3 (05:42→21:33)
[2018-07-28 07:19] LABS: Absolute Eosinophil Count 0.06 k/cumm (0.0-0.7); Absolute Monocyte Count 0.18 k/cumm (0.11-0.7); Eosinophils % 5.3; HGB 7.4 g/dL (13.5-17.5); Lymphocytes % 17.5; Mean Corp. HGB Concentration 30.8 g/dL (32.0-36.0); Mean Corpuscular Hemoglobin 25.6 pg (27.0-33.0); Monocytes % 15.8; Neutrophils % 61.4; RBC 2.89 m/cumm (4.50-6.00); RBC Distribution Width 14.9 % (11.8-14.1)
[2018-07-28 07:21] LABS: White Blood Cell Count 1.14 k/cumm (4.4-10.8)
[2018-07-28 07:51] LABS: Platelet Count 41 x1000/uL (130-400)
[2018-07-28 07:52] LABS: Diff Comment Agrees w/ Instrument; Hypochromasia 2+; Microcytosis 1+; Ovalocytes 2+
[2018-07-28] MEDS: Carvedilol 3.125 MG TAB PO (08:03)
[2018-07-28] MEDS: Pantoprazole 40 MG TABCR PO ×2 (08:03→19:37)
[2018-07-28 09:58] LABS: Iron 33 ug/dL (50-175); Total Iron Binding Capacity 273 ug/dL (250-450); Transferrin Sat 12 % (20-55)
[2018-07-28 10:12] LABS: Ferritin 17 ng/mL (8-388)
--- NOTE | 2018-07-28 13:41 | W.PM.OP ---
Date of service: 07/28/18 Time of Service: 13:41 Operative Note DATE OF PROCEDURE: 07/28/18 PRE-OP DIAGNOSIS: perirectal abscess POST-OP DIAGNOSIS: same PROCEDURE: I & D SURGEON: Faustina Littlejohn ARTIFICIAL LIMB FITTER: Kathy Banks ANESTHESIA: GETAndreas ESTIMATED BLOOD LOSS: 20 COMPLICATIONS: None Patient was transported to: PACU Patient's condition: stable Implants: abcess is opened and packed packing will come out tomorrow Findings: dictated
--- NOTE | 2018-07-28 17:29 | PDOC.CMIN ---
- If Service Date Differs Date of service: 07/28/18 Time of Service: 17:29 Care Management Initial Assess REASON FOR HOSPITALIZATION:: Perirectal abscess PAST MEDICAL HISTORY/PAST SURGICAL HISTORY:: Ventral hernia (Acute). DM (diabetes mellitus). GERD (gastroesophageal reflux disease). HTN (hypertension). IBS (irritable bowel syndrome). Iron deficiency anemia. Liver cirrhosis. HANS (obstructive sleep apnea). Parkinson disease. H/O ventral hernia repair (Acute). History of bowel resection (Acute). History of Leonid fundoplication (Chronic). BONE MARROW BIOPSY (11/25/14). Colectomy. colonoscopy (/ PREVIOUS FUNCTIONAL STATUS/SOCIAL/FAMILY SUPPORTS:: Drake resides alone at [facility]. He was previously a resident at [facility], and states that he has been at the [facility] since September. Drake's Gregoria remains a resident at [facility] and he visits her regularly. Drake states that he is not driving at this time and depends on [facility] for his transportation needs. CURRENT FUNCTIONAL STATUS:: Drake is resting post surgery when CM arrives. CM is familer with patientfrom multiple past admissions. Will meet with him in the morning to complete assessment. CM did review plan with surgical provider and made home health referral for daily dressing changes to [facility]. ADVANCE DIRECTIVES:: On file - Annabelle Ren is agent. Nara Manjarrez is alternate INSURANCE COVERAGE / FINANCIAL ISSUES:: Medicare, Medicaid, [employer], [employer] CURRENT HOME/COMMUNITY SERVICES/EQUIPMENT:: Currently Drake receives a hommaker through [facility]. Drake has a CPAP, W/C, Motorized W/C, FWW, raised toilet seat, and shower chair at home. PRIMARY CARE PHYSICIAN:: POTENTIAL DISCHARGE NEEDS:: Home Health services new nursing for wound care and daily dressing changes, CM provided referral to service. Follow up appointment scheduled to be scheduled prior to discharge. PATIENT/FAMILY EDUCATION NEEDS:: Discharge instructions, follow up plan of care and self management. ANTICIPATED BARRIERS TO DISCHARGE:: None identified. TRANSPORTATION:: Via [facility] at time of discharge. PLAN:: Drake is receiving IV antibiotics, and wound management. Anticipate he will be discharged home with new home health services and oral antibioitcs in the next 24-48 hours. CM faxed a referral to home health. CM will continue to provide support to patient discharge planning and disposition.
--- NOTE | 2018-07-28 17:38 | INITIAL_ITS ---
- If Service Date Differs Date of service: 07/28/18 Time of Service: 17:29 Care Management Initial Assess REASON FOR HOSPITALIZATION:: Perirectal abscess PAST MEDICAL HISTORY/PAST SURGICAL HISTORY:: Ventral hernia (Acute). DM (diabetes mellitus). GERD (gastroesophageal reflux disease). HTN (hypertension). IBS (irritable bowel syndrome). Iron deficiency anemia. Liver cirrhosis. HANS (obstructive sleep apnea). Parkinson disease. H/O ventral hernia repair (Acute). History of bowel resection (Acute). History of Leonid fundoplication (Chronic). BONE MARROW BIOPSY (11/25/14). Colectomy. colonoscopy (/ PREVIOUS FUNCTIONAL STATUS/SOCIAL/FAMILY SUPPORTS:: Drake resides alone at [facility]. He was previously a resident at [facility], and states that he has been at the [facility] since September. Drake's Gregoria remains a resident at [facility] and he visits her regularly. Drake states that he is not driving at this time and depends on [facility] for his transportation needs. CURRENT FUNCTIONAL STATUS:: Drake is resting post surgery when CM arrives. CM is familer with patientfrom multiple past admissions. Will meet with him in the morning to complete assessment. CM did review plan with surgical provider and made home health referral for daily dressing changes to [facility]. ADVANCE DIRECTIVES:: On file - Annabelle Ren is agent. Nara Manjarrez is alternate INSURANCE COVERAGE / FINANCIAL ISSUES:: Medicare, Medicaid, [employer], Financial [employer] CURRENT HOME/COMMUNITY SERVICES/EQUIPMENT:: Currently Drake receives a hommaker through [facility]. Drake has a CPAP, W/C, Motorized W/C, FWW, raised toilet seat, and shower chair at home. PRIMARY CARE PHYSICIAN:: POTENTIAL DISCHARGE NEEDS:: Home Health services new nursing for wound care and daily dressing changes, CM provided referral to service. Follow up appointment scheduled to be scheduled prior to discharge. PATIENT/FAMILY EDUCATION NEEDS:: Discharge instructions, follow up plan of care and self management. ANTICIPATED BARRIERS TO DISCHARGE:: None identified. TRANSPORTATION:: Via [facility] at time of discharge. PLAN:: Drake is receiving IV antibiotics, and wound management. Anticipate he will be discharged home with new home health services and oral antibioitcs in the next 24-48 hours. CM faxed a referral to home health. CM will continue to provide support to patient discharge planning and disposition.
--- NOTE | 2018-07-28 20:30 | W.PM.PROGNOT ---
Date of Service Date of service: 07/28/18 Time of Service: 20:31 Assessment and Plan (1) Perirectal abscess: Current visit: Yes Status: Acute s/p I & D has packing in place and will change in am iv abx will arrange home RN and packing. bowel regimine probiotics walk'pulm toilet Subjective Interval history since last seen: Pt is doing well. no headaches. No CP or SOB. no productive cough. no dysuria. no leg pain or swelling. not having any pain. no bleeding. will have case management arrange home care liaison for dressing changes/packing change. hopefully will only be a few days. plan d/c home in am. Exam Chest Chest: normal inspection of the chest Resp Effort & Inspection: normal respiratory effort and able to speak in complete sentences Auscultation: clear to auscultation bilaterally Cardio Rate: regular rate Rhythm: regular rhythm GI Inspection: obesity, scar and visible herniation Palpation: soft Auscultation: normal bowel sounds Other: no bleeding from packing Objective Objective Clinical Data: Abnormal lab results 07/27/18 07/27/18 07/27/18 Range/Units 20:50 20:50 20:50 WBC 1.36 L* (4.4-10.8) k/cumm RBC 3.03 L (4.50-6.00) m/cumm Hgb 7.9 L (13.5-17.5) g/dL Hct 25.1 L (40.0-50.0) % MCH 26.1 L (27.0-33.0) pg MCHC 31.5 L (32.0-36.0) g/dL RDW 14.8 H (11.8-14.1) % Plt Count 45 L (130-400) x1000/uL MPV 12.2 H (8.0-11.0) fL Absolute Neutrophils 0.88 L (1.2-6.7) k/cumm Absolute Lymphocytes 0.23 L (1.2-3.4) k/cumm PT (9.3-11.0) sec INR (0.9-1.1) Chloride 108 H (98-107) mmol/L Glucose 197 H (70-100) mg/dL Lactate 1.6 H (0.6-1.4) mmol/l Calcium 8.0 L (8.5-10.1) mg/dL Iron (50-175) ug/dL Transferrin % Sat (20-55) % Alkaline Phosphatase 184 H (46-116) U/L Total Protein 6.1 L (6.4-8.2) g/dL Albumin 2.7 L (3.4-5.0) g/dL 07/27/18 07/28/18 07/28/18 Range/Units 20:50 06:35 06:35 WBC 1.14 L* (4.4-10.8) k/cumm RBC 2.89 L (4.50-6.00) m/cumm Hgb 7.4 L (13.5-17.5) g/dL Hct 24.0 L (40.0-50.0) % MCH 25.6 L (27.0-33.0) pg MCHC 30.8 L (32.0-36.0) g/dL RDW 14.9 H (11.8-14.1) % Plt Count 41 L (130-400) x1000/uL MPV (8.0-11.0) fL Absolute Neutrophils 0.70 L (1.2-6.7) k/cumm Absolute Lymphocytes 0.20 L (1.2-3.4) k/cumm PT 12.7 H (9.3-11.0) sec INR 1.3 H (0.9-1.1) Chloride (98-107) mmol/L Glucose (70-100) mg/dL Lactate (0.6-1.4) mmol/l Calcium (8.5-10.1) mg/dL Iron 33 L (50-175) ug/dL Transferrin % Sat 12 L (20-55) % Alkaline Phosphatase (46-116) U/L Total Protein (6.4-8.2) g/dL Albumin (3.4-5.0) g/dL Vital Signs Temperature 37.6 C H 07/28/18 19:44 Temperature Source Tympanic 07/28/18 19:44 Pulse 77 07/28/18 19:44 Pulse Rhythm Regular 07/28/18 20:20 Respiratory Rate 16 07/28/18 19:44 Respiratory Effort 07/28/18 20:20 Respiratory Depth Normal 07/28/18 20:20 Respiratory Pattern Normal 07/28/18 20:20 Blood Pressure 124/58 L 07/28/18 19:44 Pulse Oximetry 94 L 07/28/18 19:44 Respiratory End-tidal CO2 30 07/28/18 13:59 Oxygen Delivery Method Room Air 07/28/18 19:44 Oxygen Flow Rate 0 07/28/18 19:44 Pain Level 4 07/28/18 08:57 Intake & Output 07/27/18 07/28/18 07/28/18 23:59 11:59 23:59 Intake Total 1120 / 1120 1352.083 / 2852.083 1500 / 2852.083 Output Total 100 / 100 250 / 475 225 / 475 Balance 1020 / 1020 1102.083 / 2377.083 1275 / 2377.083 Weight 97.8 kg 97.8 kg Intake: IV 1000 / 1000 1352.083 / 2612.083 1260 / 2612.083 Oral 120 / 120 240 / 240 Output: Urine 100 / 100 250 / 475 225 / 475 Other: Urine Color Yellow Straw Straw Urine Appearance Clear Clear Urine Odor Normal Comment At this time pt has refused Robledo catheter 2/2 previous complications (hematuria with clots) Stool Size Small Moderate Stool Characteristics Hard Soft Brown Emesis Description None Voiding Methods Urinal Urinal Laboratory Results WBC 1.14 k/cumm (4.4-10.8) L* 07/28/18 06:35 RBC 2.89 m/cumm (4.50-6.00) L 07/28/18 06:35 Hgb 7.4 g/dL (13.5-17.5) L 07/28/18 06:35 Hct 24.0 % (40.0-50.0) L 07/28/18 06:35 MCV 83.0 fL (80-95) 07/28/18 06:35 MCH 25.6 pg (27.0-33.0) L 07/28/18 06:35 MCHC 30.8 g/dL (32.0-36.0) L 07/28/18 06:35 RDW 14.9 % (11.8-14.1) H 07/28/18 06:35 Plt Count 41 x1000/uL (130-400) L 07/28/18 06:35 MPV fL (8.0-11.0) 07/28/18 06:35 Immature Gran % 0.0 07/28/18 06:35 Neutrophils % 61.4 07/28/18 06:35 Lymphocytes % 17.5 07/28/18 06:35 Monocytes % 15.8 07/28/18 06:35 Eosinophils % 5.3 07/28/18 06:35 Basophils % 0.0 07/28/18 06:35 Absolute Neutrophils 0.70 k/cumm (1.2-6.7) L 07/28/18 06:35 Absolute Lymphocytes 0.20 k/cumm (1.2-3.4) L 07/28/18 06:35 Absolute Monocytes 0.18 k/cumm (0.11-0.7) 07/28/18 06:35 Absolute Eosinophils 0.06 k/cumm (0.0-0.7) 07/28/18 06:35 Absolute Basophils 0.00 k/cumm (0.0-0.2) 07/28/18 06:35 Differential Comment Agrees w/ instrument 07/28/18 06:35 RBC Morphology See below 07/28/18 06:35 Polychromasia Present 07/27/18 20:50 Hypochromasia 2+ 07/28/18 06:35 Poikilocytosis 1+ 07/27/18 20:50 Anisocytosis 2+ 07/27/18 20:50 Microcytosis 1+ 07/28/18 06:35 Ovalocytes 2+ 07/28/18 06:35 PT 12.7 sec (9.3-11.0) H 07/27/18 20:50 INR 1.3 (0.9-1.1) H 07/27/18 20:50 APTT 27.2 sec (21.0-31.4) 07/27/18 20:50 Sodium 140 mmol/L (136-145) 07/27/18 20:50 Potassium 4.1 mmol/L (3.5-5.1) 07/27/18 20:50 Chloride 108 mmol/L (98-107) H 07/27/18 20:50 Carbon Dioxide 22.3 mmol/L (21.0-32.0) 07/27/18 20:50 Anion Gap 9.7 mmol/L (3-11) 07/27/18 20:50 BUN 10 mg/dL (7-18) 07/27/18 20:50 Creatinine 1.01 mg/dL (0.70-1.30) 07/27/18 20:50 Estimated GFR/1.73 m2 >= 60.00 (mL/min/1.73m2) 07/27/18 20:50 Glucose 197 mg/dL (70-100) H 07/27/18 20:50 Lactate 1.6 mmol/l (0.6-1.4) H 07/27/18 20:50 Calcium 8.0 mg/dL (8.5-10.1) L 07/27/18 20:50 Iron 33 ug/dL (50-175) L 07/28/18 06:35 TIBC 273 ug/dL (250-450) 07/28/18 06:35 Transferrin % Sat 12 % (20-55) L 07/28/18 06:35 Ferritin 17 ng/mL (8-388) 07/28/18 06:35 Total Bilirubin 0.8 mg/dL (0.2-1.0) 07/27/18 20:50 AST 24 U/L (15-37) 07/27/18 20:50 ALT 15 U/L (12-78) 07/27/18 20:50 Alkaline Phosphatase 184 U/L (46-116) H 07/27/18 20:50 Total Protein 6.1 g/dL (6.4-8.2) L 07/27/18 20:50 Albumin 2.7 g/dL (3.4-5.0) L 07/27/18 20:50
[2018-07-28] MEDS: Melatonin 3 MG TAB 6 MG PO (21:33)
[2018-07-29] MEDS: Normal Saline Flush 10 ML SYR IVP (00:58)
[2018-07-29] MEDS: traMADol 50 MG TAB PO ×2 (01:37→10:24)
[2018-07-29 01:45] VITALS: TEMP 36
[2018-07-29] MEDS: PIPERACILLIN/TAZO 3.375 GM in Normal Saline 50 ML IVPB (05:31)
[2018-07-29 07:30] VITALS: BP 154/73; PULSE 72; RESP 18; TEMP 36.6; O2SAT 96
[2018-07-29] MEDS: Sennosides/Docusate Sodium TAB 1 TAB PO (08:33)
[2018-07-29] MEDS: Carvedilol 3.125 MG TAB PO (08:33)
[2018-07-29] MEDS: Pantoprazole 40 MG TABCR PO (08:34)
--- NOTE | 2018-07-29 09:29 | W.PM.PROGNOT ---
Date of Service Date of service: 07/29/18 Time of Service: 09:29 Assessment and Plan (1) Perirectal abscess: Current visit: Yes Status: Acute POD #1 of I&D of PeriRectal Abscess with packing. Pain is currently tolerable. Tolerating a normal diet (+) BM without difficulty. Disposition- D/C home later today with home health for wound care/ dressing changes. Subjective Interval history since last seen: It's sore, I tried the ice but didn't like it. Denies any nausea or vomiting. He has BM last night and is urinating without difficulty. Exam Const General: cooperative and comfortable Orientation: alert and oriented x3 Resp Effort & Inspection: normal respiratory effort, no audible wheezes and no cough Objective Objective Clinical Data: Abnormal lab results 07/28/18 Range/Units 06:35 Iron 33 L (50-175) ug/dL Transferrin % Sat 12 L (20-55) % Vital Signs Temperature 36.6 C 07/29/18 07:30 Temperature Source Tympanic 07/29/18 07:30 Pulse 72 07/29/18 07:30 Pulse Rhythm Regular 07/29/18 08:51 Respiratory Rate 18 07/29/18 07:30 Respiratory Effort Non-Labored 07/29/18 08:51 Respiratory Depth Normal 07/29/18 08:51 Respiratory Pattern Normal 07/29/18 08:51 Blood Pressure 154/73 H 07/29/18 07:30 Pulse Oximetry 96 07/29/18 07:30 Respiratory End-tidal CO2 30 07/28/18 13:59 Oxygen Delivery Method Room Air 07/29/18 07:39 Oxygen Flow Rate 0 07/29/18 07:39 Pain Level 9 07/29/18 01:56 Intake & Output 07/28/18 07/29/18 07/29/18 18:59 06:59 18:59 Intake Total 1765 / 4150 2385 / 4150 Output Total 375 / 1225 850 / 1225 Balance 1390 / 2925 1535 / 2925 Intake: IV 1525 / 3460 1935 / 3460 Oral 240 / 690 450 / 690 Output: Urine 375 / 1225 850 / 1225 Other: Urine Color Straw Light Vi Pale Yellow Urine Appearance Clear Clear Clear Urine Odor None None Comment At this time pt has refused Robledo catheter 2/2 previous complications (hematuria with clots) pt had iron sucrose infusion earlier. Stool Size Moderate Small Large Stool Characteristics Soft Soft Soft Brown Formed Brown Emesis Description None Voiding Methods Urinal Urinal Toilet Laboratory Results WBC 1.14 k/cumm (4.4-10.8) L* 07/28/18 06:35 RBC 2.89 m/cumm (4.50-6.00) L 07/28/18 06:35 Hgb 7.4 g/dL (13.5-17.5) L 07/28/18 06:35 Hct 24.0 % (40.0-50.0) L 07/28/18 06:35 MCV 83.0 fL (80-95) 07/28/18 06:35 MCH 25.6 pg (27.0-33.0) L 07/28/18 06:35 MCHC 30.8 g/dL (32.0-36.0) L 07/28/18 06:35 RDW 14.9 % (11.8-14.1) H 07/28/18 06:35 Plt Count 41 x1000/uL (130-400) L 07/28/18 06:35 MPV fL (8.0-11.0) 07/28/18 06:35 Immature Gran % 0.0 07/28/18 06:35 Neutrophils % 61.4 07/28/18 06:35 Lymphocytes % 17.5 07/28/18 06:35 Monocytes % 15.8 07/28/18 06:35 Eosinophils % 5.3 07/28/18 06:35 Basophils % 0.0 07/28/18 06:35 Absolute Neutrophils 0.70 k/cumm (1.2-6.7) L 07/28/18 06:35 Absolute Lymphocytes 0.20 k/cumm (1.2-3.4) L 07/28/18 06:35 Absolute Monocytes 0.18 k/cumm (0.11-0.7) 07/28/18 06:35 Absolute Eosinophils 0.06 k/cumm (0.0-0.7) 07/28/18 06:35 Absolute Basophils 0.00 k/cumm (0.0-0.2) 07/28/18 06:35 Differential Comment Agrees w/ instrument 07/28/18 06:35 RBC Morphology See below 07/28/18 06:35 Polychromasia Present 07/27/18 20:50 Hypochromasia 2+ 07/28/18 06:35 Poikilocytosis 1+ 07/27/18 20:50 Anisocytosis 2+ 07/27/18 20:50 Microcytosis 1+ 07/28/18 06:35 Ovalocytes 2+ 07/28/18 06:35 PT 12.7 sec (9.3-11.0) H 07/27/18 20:50 INR 1.3 (0.9-1.1) H 07/27/18 20:50 APTT 27.2 sec (21.0-31.4) 07/27/18 20:50 Sodium 140 mmol/L (136-145) 07/27/18 20:50 Potassium 4.1 mmol/L (3.5-5.1) 07/27/18 20:50 Chloride 108 mmol/L (98-107) H 07/27/18 20:50 Carbon Dioxide 22.3 mmol/L (21.0-32.0) 07/27/18 20:50 Anion Gap 9.7 mmol/L (3-11) 07/27/18 20:50 BUN 10 mg/dL (7-18) 07/27/18 20:50 Creatinine 1.01 mg/dL (0.70-1.30) 07/27/18 20:50 Estimated GFR/1.73 m2 >= 60.00 (mL/min/1.73m2) 07/27/18 20:50 Glucose 197 mg/dL (70-100) H 07/27/18 20:50 Lactate 1.6 mmol/l (0.6-1.4) H 07/27/18 20:50 Calcium 8.0 mg/dL (8.5-10.1) L 07/27/18 20:50 Iron 33 ug/dL (50-175) L 07/28/18 06:35 TIBC 273 ug/dL (250-450) 07/28/18 06:35 Transferrin % Sat 12 % (20-55) L 07/28/18 06:35 Ferritin 17 ng/mL (8-388) 07/28/18 06:35 Total Bilirubin 0.8 mg/dL (0.2-1.0) 07/27/18 20:50 AST 24 U/L (15-37) 07/27/18 20:50 ALT 15 U/L (12-78) 07/27/18 20:50 Alkaline Phosphatase 184 U/L (46-116) H 07/27/18 20:50 Total Protein 6.1 g/dL (6.4-8.2) L 07/27/18 20:50 Albumin 2.7 g/dL (3.4-5.0) L 07/27/18 20:50
--- NOTE | 2018-07-29 10:18 | PDOC.CMDIS ---
- If Service Date Differs Date of service: 07/29/18 Time of Service: 10:18 LACE Index Scoring Tool - Questions: Length of Stay (in days): 2 Acuity (Admit via E.D.?): Yes Comorbidities: Diabetes w/o Complication, Any Tumor, Liver or Renal Disease E.D. Visits: 5 - Answers: Total Score: 14 Risk of Readmission: High Risk Care Management Discharge Reason for Hospitalization: Perirectal abscess Discharge Plan: Drake is sitting up in his chair he is engaged and talkitive. Drake is being discharge home today he will have new home health services for nursing and wound management. We will need to send dressing supplies home for the first 48 hours until home health is able to obtain their supplies. Drake is looking foward to returning home he reports he is a little uncomfortable from the procedure. He will need RCT to transport which CM will coordinate once time for dsicharge is determined. Patient/Family Education Needs: Discharge education, limitations and follow up plan of care.
--- NOTE | 2018-07-29 11:57 | HHF2F_ITS ---
1. Encounter Date and Reason I certify that KAUR LORENZANA was seen by Faustina Littlejohn on 07/29/18 and that I had a [id number] encounter with this patient that meets the physician face to face encounter requirements. 2. Clinical Findings Supporting Skilled Need and Homebound Status I certify that home health services are medically necessary, include either intermittent [place] [facility] and/or physical/speech therapy, and that this patient is homebound in that absences from the home require considerable and taxing effort and are infrequent or of short duration, or are attributable to the need to receive medical care. [X] (a) Attached documentation from encounter provides clinical findings supporting skilled need and homebound status (including what assistance patient requires to leave the home). The encounter with the patient was in whole, or in part, for the following medical condition, which is the primary reason for home health care: PERIRECTAL ABCESS Senior Living: requires home RN for dialy dressing changes and would packing inthe rectum for 1-2 wks po abx Physical Therapy: Speech Therapy: Homebound: yes pt lives in assisted care living situation 3. Certification and Authentication I certify that I composed the above information based on my clinical judgement relating to this patient's medical condition and, if applicable, clinical findings communicated to me by the NPP or inpatient physician who performed the Home Health Referral. All further orders will be obtained through Joanne Haddad(Community Based Physician - PCP)
[2018-07-29] MEDS: Insulin Aspart 300 UNITS/3 ML PEN SC (12:13)
--- NOTE | 2018-07-29 12:43 | W.PM.PROGNOT ---
Date of Service Date of service: 07/29/18 Time of Service: 12:43 Assessment and Plan (1) Perirectal abscess: Current visit: No Status: Acute stable for d/c home ice and sitz bathes prn pain pt insurance won't pay for augmentin so placed on doxcyclin. has rx for ultram HH arranged Subjective Interval history since last seen: Pt is doing well. no headaches. No CP or SOB. no productive cough. no dysuria. no leg pain or swelling. min wound pain. wound is c/d. no necrotic tissue or gross purulence. no active bleeding. packing changes by Salma [place] start packing changes on 07/30 . no diarrhea Exam Const General: cooperative, healthy appearing, comfortable, no acute distress, well developed and well groomed Nutritional Appearance: average body habitus and well nourished Orientation: alert, awake and oriented x3 HENMT Head: normal to inspection, normocephalic and atraumatic Ears: hearing grossly normal bilaterally and external ears normal General nose exam: external nose normal Face and sinus: normal facial exam and sinuses nontender Mouth: oral mucosae normal, lip normal, tongue normal and moist mucous membranes Teeth and gingiva: dentition normal Eyes General: appearance normal, both eyes and all related structures Conjunctivae: conjunctivae normal Sclera: sclerae normal Pupils: PERRL Neck Neck: normal visual inspection and full ROM Chest Chest: normal inspection of the chest Resp Effort & Inspection: normal respiratory effort, able to speak in complete sentences, no cough, no nasal flaring, not tachypneic and no use of accessory muscles Auscultation: clear to auscultation bilaterally, no rales, no rhonchi and no wheezes Cardio Jugular venous pressure: no JVD Rate: regular rate Rhythm: regular rhythm GI Inspection: normal to inspection, no edema and non-distended Palpation: soft, no masses, nontender and No ascites Auscultation: normal bowel sounds Skin Other: wound is clean- no necrosis Neuro General: alert, oriented x3, oriented, moves all extremities, no focal motor deficits and CN's II-XI intact bilaterally Cognition: normal cognition Speech: speech normal Gait: other (pt in w/c secondary to pain ) Extrem General: normal to inspection, full ROM and no clubbing, cyanosis or edema Psych Appearance: grossly normal and well kempt Mental Status: mental status grossly normal Speech and Movement: speech and movement normal Affect: normal affect Objective Objective Clinical Data: Vital Signs Temperature 36.6 C 07/29/18 07:30 Temperature Source Tympanic 07/29/18 07:30 Pulse 72 07/29/18 07:30 Pulse Rhythm Regular 07/29/18 08:51 Respiratory Rate 18 07/29/18 07:30 Respiratory Effort Non-Labored 07/29/18 08:51 Respiratory Depth Normal 07/29/18 08:51 Respiratory Pattern Normal 07/29/18 08:51 Blood Pressure 154/73 H 07/29/18 07:30 Pulse Oximetry 96 07/29/18 07:30 Respiratory End-tidal CO2 30 07/28/18 13:59 Oxygen Delivery Method Room Air 07/29/18 07:39 Oxygen Flow Rate 0 07/29/18 07:39 Pain Level 9 07/29/18 10:24 Intake & Output 07/28/18 07/29/18 07/29/18 23:59 11:59 23:59 Intake Total 1500 / 2852.083 1740 / 1740 Output Total 725 / 975 450 / 450 Balance 775 / 4608.055 0437 / 1290 Intake: IV 1260 / 2612.083 1050 / 1050 Oral 240 / 240 690 / 690 Output: Urine 725 / 975 450 / 450 Other: Urine Color Light Vi Straw Urine Appearance Clear Clear Urine Odor None Comment pt had iron sucrose infusion earlier. Stool Size Moderate Large Stool Characteristics Soft Soft Formed Brown Emesis Description None Voiding Methods Urinal Urinal Laboratory Results WBC 1.14 k/cumm (4.4-10.8) L* 07/28/18 06:35 RBC 2.89 m/cumm (4.50-6.00) L 07/28/18 06:35 Hgb 7.4 g/dL (13.5-17.5) L 07/28/18 06:35 Hct 24.0 % (40.0-50.0) L 07/28/18 06:35 MCV 83.0 fL (80-95) 07/28/18 06:35 MCH 25.6 pg (27.0-33.0) L 07/28/18 06:35 MCHC 30.8 g/dL (32.0-36.0) L 07/28/18 06:35 RDW 14.9 % (11.8-14.1) H 07/28/18 06:35 Plt Count 41 x1000/uL (130-400) L 07/28/18 06:35 MPV fL (8.0-11.0) 07/28/18 06:35 Immature Gran % 0.0 07/28/18 06:35 Neutrophils % 61.4 07/28/18 06:35 Lymphocytes % 17.5 07/28/18 06:35 Monocytes % 15.8 07/28/18 06:35 Eosinophils % 5.3 07/28/18 06:35 Basophils % 0.0 07/28/18 06:35 Absolute Neutrophils 0.70 k/cumm (1.2-6.7) L 07/28/18 06:35 Absolute Lymphocytes 0.20 k/cumm (1.2-3.4) L 07/28/18 06:35 Absolute Monocytes 0.18 k/cumm (0.11-0.7) 07/28/18 06:35 Absolute Eosinophils 0.06 k/cumm (0.0-0.7) 07/28/18 06:35 Absolute Basophils 0.00 k/cumm (0.0-0.2) 07/28/18 06:35 Differential Comment Agrees w/ instrument 07/28/18 06:35 RBC Morphology See below 07/28/18 06:35 Polychromasia Present 07/27/18 20:50 Hypochromasia 2+ 07/28/18 06:35 Poikilocytosis 1+ 07/27/18 20:50 Anisocytosis 2+ 07/27/18 20:50 Microcytosis 1+ 07/28/18 06:35 Ovalocytes 2+ 07/28/18 06:35 PT 12.7 sec (9.3-11.0) H 07/27/18 20:50 INR 1.3 (0.9-1.1) H 07/27/18 20:50 APTT 27.2 sec (21.0-31.4) 07/27/18 20:50 Sodium 140 mmol/L (136-145) 07/27/18 20:50 Potassium 4.1 mmol/L (3.5-5.1) 07/27/18 20:50 Chloride 108 mmol/L (98-107) H 07/27/18 20:50 Carbon Dioxide 22.3 mmol/L (21.0-32.0) 07/27/18 20:50 Anion Gap 9.7 mmol/L (3-11) 07/27/18 20:50 BUN 10 mg/dL (7-18) 07/27/18 20:50 Creatinine 1.01 mg/dL (0.70-1.30) 07/27/18 20:50 Estimated GFR/1.73 m2 >= 60.00 (mL/min/1.73m2) 07/27/18 20:50 Glucose 197 mg/dL (70-100) H 07/27/18 20:50 Lactate 1.6 mmol/l (0.6-1.4) H 07/27/18 20:50 Calcium 8.0 mg/dL (8.5-10.1) L 07/27/18 20:50 Iron 33 ug/dL (50-175) L 07/28/18 06:35 TIBC 273 ug/dL (250-450) 07/28/18 06:35 Transferrin % Sat 12 % (20-55) L 07/28/18 06:35 Ferritin 17 ng/mL (8-388) 07/28/18 06:35 Total Bilirubin 0.8 mg/dL (0.2-1.0) 07/27/18 20:50 AST 24 U/L (15-37) 07/27/18 20:50 ALT 15 U/L (12-78) 07/27/18 20:50 Alkaline Phosphatase 184 U/L (46-116) H 07/27/18 20:50 Total Protein 6.1 g/dL (6.4-8.2) L 07/27/18 20:50 Albumin 2.7 g/dL (3.4-5.0) L 07/27/18 20:50
--- NOTE | 2018-07-29 12:47 | W.PM.DS.N ---
Date of service: 07/29/18 Time of Service: 19:36 DS: Diagnosis Discharge Diagnosis (1) Perirectal abscess: Status: Acute Discharge Plan Disposition Patient Disposition: OTHER Condition: Stable Discharge Details Reason For Visit: PERIRECTAL ABCESS Admit Date/Time: 07/27/18 22:11 Admit Provider: Faustina Littlejohn Attending Provider: Faustina Littlejohn Primary Care Provider: Joanne Riggins Hospital Course Hospital Course: pt came in w/ krystal-rectal abscess. pt has a hx of these. He was started on IV zosyn and taken to the OR form drainage: Cultures show: today wound is c/d/i. WBC is nl low at baseline. pt has minimal wound pain. non CP or SOB. no leg pain or swelling. no cough. no dysuria. He ochoa require daily packing and dressing changes for 1-2 wks. 7days of doxy (insurance won't cover augmentin). He can use ultram for pain. yogurt daily while on abx. pt required insulin coverage while in the hosp. close monitoring of blood sugars. f/u in clinic on Friday w/ rita Home Meds and New Rx's Prescriptions: New doxycycline hyclate 100 mg tablet 100 mg PO BID Qty: 7 RF: 0 Lactobacillus acidophilus 680 mg (750 million cell) capsule 1,400 mmu cells PO DAILY Qty: 30 RF: 0 Continued melatonin 5 MG tablet 5 mg PO HS RF: 0 carbidopa-levodopa 25-100 mg tablet extended release 2 tab PO QID Qty: 240 RF: 11 pantoprazole 40 MG tablet,delayed release (DR/EC) 40 mg PO BID RF: 0 carvedilol 3.125 MG tablet 3.125 mg PO BID RF: 0 Novolog Flexpen U-100 Insulin 300 UNITS/3 ML insulin pen Sub-Q AC RF: 0 magnesium oxide 250 mg magnesium tablet 500 mg PO DAILY RF: 0 tramadol 50 mg tablet 25 mg PO .am PRN (Reason: Pain) RF: 0 Discharge Instructions Additional Instructions: -F/u Dr. Littlejohn next friday -daily packing changes until cavity is filled in prob 1-2wks -abx: doxycycline -ultram and ice for pain adn sitz baths -yogurt daily while on abx -probiotics for 30 days -MOM or Miralax for BM -packing was changed on 07/29. Dressing changes start 07/30 Your health care provider has covered your wound with a wet-to-dry dressing. With this type of dressing, a wet (or moist) gauze dressing is put on your wound and allowed to dry. Wound drainage and tissue can be removed when you take off the old dressing. Follow any instructions you are given on how to change the dressing. Use this sheet as a reminder. What to Expect at Home Your provider will tell you how often you should change your dressing at home. As the wound heals, you should not need as much gauze or packing gauze. Removing the Old Dressing Follow these steps to remove your dressing: Wash your hands thoroughly with soap and warm water before and after each dressing change. Remove the old dressing. If it is sticking to your skin, wet it with warm water to loosen it. Remove the gauze pads or packing tape from inside your wound. Changing Your Dressing Follow these steps to put a new dressing on: Place the gauze pads or packing tape in your wound. Carefully fill in the wound and any spaces under the skin. Use a cotton tip applicator to gently push the packing material into the wound. Cover the wet gauze or packing tape with a large dry dressing pad. Use tape or rolled gauze to hold this dressing in place. Wash your hands again when you are finished. When to Call the Doctor Call your doctor if you have any of these changes around your wound: Worsening redness More pain Swelling Bleeding It is larger or deeper It looks dried out or dark The drainage is increasing The drainage has a bad smell Also call your doctor if: Your temperature is 100.5?F (38?C), or higher, for more than 4 hours Drainage is coming from or around the wound Drainage is not decreasing after 3 to 5 days Drainage is increasing Drainage becomes thick, olvera, yellow, or smells bad Stand Alone Forms: Nursing Discharge Form Referrals: Faustina Littlejohn DO [OSTEOPATHIC DOCTOR] - 08/03/18 2:30 pm Activity:: Activity as Tolerated Equipment/Supplies:: Blood Glucose Monitor Diet:: Carb Counting Discharge Orders Discharge Orders: Discharge Order (Routine); Ordered 07/29/18 Ordered By: Faustina Littlejohn Discharge Data Discharge Date/Time-TO BE ENTERED AT DEPARTURE: 07/29/18 13:55 Exam Narrative Exam Narrative: see exam notes DS: Data Vitals/I&O Vitals and I&O: Vital Signs Temperature 36.6 C 07/29/18 07:30 Temperature Source Tympanic 07/29/18 07:30 Pulse 72 07/29/18 07:30 Pulse Rhythm Regular 07/29/18 08:51 Respiratory Rate 18 07/29/18 07:30 Respiratory Effort Non-Labored 07/29/18 08:51 Respiratory Depth Normal 07/29/18 08:51 Respiratory Pattern Normal 07/29/18 08:51 Blood Pressure 154/73 H 07/29/18 07:30 Pulse Oximetry 96 07/29/18 07:30 Respiratory End-tidal CO2 30 07/28/18 13:59 Oxygen Delivery Method Room Air 07/29/18 07:39 Oxygen Flow Rate 0 07/29/18 07:39 Pain Level 9 07/29/18 10:24 Intake & Output 07/28/18 07/29/18 07/29/18 23:59 11:59 23:59 Intake Total 1500 / 2852.083 1740 / 1740 Output Total 725 / 975 450 / 450 Balance 775 / 1992.374 7573 / 1290 Intake: IV 1260 / 2612.083 1050 / 1050 Oral 240 / 240 690 / 690 Output: Urine 725 / 975 450 / 450 Other: Urine Color Light Vi Straw Urine Appearance Clear Clear Urine Odor None Comment pt had iron sucrose infusion earlier. Stool Size Moderate Large Stool Characteristics Soft Soft Formed Brown Emesis Description None Voiding Methods Urinal Urinal Labs on day of discharge: Preliminary micro results at discharge 07/28/18 13:16 Surgical Culture - Preliminary Perirectal Gram Negative Keshawn 07/27/18 20:50 Blood Culture - Preliminary Blood NO GROWTH 24 HOURS 07/27/18 20:50 Blood Culture - Preliminary Blood NO GROWTH 24 HOURS PFS Medical History Perirectal abscess (Acute) Esophageal varices (Chronic) Pancytopenia (Chronic) Ventral hernia (Chronic) DM (diabetes mellitus) GERD (gastroesophageal reflux disease) HTN (hypertension) IBS (irritable bowel syndrome) Iron deficiency anemia Liver cirrhosis HANS (obstructive sleep apnea) Parkinson disease Surgical History H/O ventral hernia repair (Chronic) History of Leonid fundoplication (Chronic) History of bowel resection (Chronic) BONE MARROW BIOPSY (11/25/14) Colectomy colonoscopy (11/21/15) Family History Maternal Cousin Colon cancer Maternal Cousin Colon cancer Social History Smoking/Tobacco Use Status: Former Tobacco Use Alcohol Intake: former Drug use: Never Household members: none Housing: apartment Do you feel safe at home: Yes Do you feel safe in your relationship?: Yes Additional Social history: drinks < 1/month
--- NOTE | 2018-07-31 12:15 | ROE_ITS ---
DATE OF PROCEDURE: July 28, 2018 PREOPERATIVE DIAGNOSIS: Perirectal abscess. POSTOPERATIVE DIAGNOSIS: Same. PROCEDURE: Incision and drainage. SURGEON: Faustina Littlejohn D.O. SEGMENTAL WALL INSTALLER: Aleena Espinosa ANESTHESIA: Local, MAC ESTIMATED BLOOD LOSS: 10 cc's CONDITION: The patient tolerated the procedure well without complications. INDICATION FOR PROCEDURE: Mr. Ren is a 78-year-old male well-known to me. He has a history of renal compromise, irritable bowel disorder and cirrhosis. He has developed a perirectal abscess; he's had them in the past. He says they require incision and drainage and do not resolve w/ abx alone. . Informed consent was obtained explaining risks and benefits of the procedure, including but not limited to bleeding, infection, pneumonia, blood clots, chronic pain, chronic numbness, recurrence, complications from anesthesia, including [place], CVA and ; damage to sphincters, including stenosis or incontinence. The patient is here for incision and drainage. PROCEDURE: The patient is brought to the operative room suite and placed in the supine position. Anesthesia is administered per the Department of Anesthesia. He is already on IV antibiotics. He was placed in the low lithotomy stirrups. The area is prepped and draped in the usual sterile fashion using Betadine scrub solution. The area is infiltrated with 20 cc's of 0.25% Marcaine with epinephrine. The abscess is at the 5 o'clock position in anatomical position. The cavity is curetted and all nonviable tissue is removed. The area is opened up and drained. Cultures are taken. It is irrigated with 3 liters of saline. Pressure is held. There is no bleeding noted. It's about 2 x 2 x 2 cm abscess cavity; it's packed with 1/4 Nu Gauze. Pressure is held. There is no evident bleeding noted. Compression dressings are applied. The patient tolerated the procedure well without complication, transferred to room in stable condition. He will be kept overnight for continued IV antibiotic therapy. Cultures are pending at this time. cc: Joanne Riggins N.P.
== END 2018-07-29 13:55 | disposition other institution (70) | DRG 346 ==
LOC: ER 22:48 → MS 23:02
PROVIDERS: Admitting Provider Surgery; Emergency Provider Emergency Medicine; PCP Nurse Practitioner Family; Visit Provider Surgery
PROC: 2W1RX7Z Compression of Left Lower Leg using Intermittent Pressure Device (ICD-10-PCS; CPT 46040; principal; 2018-07-28 11:45)
DX: K61.1 Rectal abscess (principal); B96.1 Klebsiella pneumoniae [K. pneumoniae] as the cause of diseases classified elsewhere; Z16.11 Resistance to penicillins; I10 Essential (primary) hypertension; E11.9 Type 2 diabetes mellitus without complications; K21.9 Gastro-esophageal reflux disease without esophagitis; G47.33 Obstructive sleep apnea (adult) (pediatric)
CPT/HCPCS: 46040; 36415; 80053; 87040; 87077; 96361; 96365; 96376; 99222; 99238; 99285; NC; 74177; 82728; 83540; 83550; 83605; 85025; 85610; 85730; 87070; 87186; 87205; 99284; J1756; J1885; J2543; J3490

== ENCOUNTER → 2018-08-03 14:26 | Outpatient (BNVA) | payer OTHER, SELFPAY | PROVIDERS: PCP Nurse Practitioner Family; Referring Provider Nurse Practitioner Family; Visit Provider Surgery | DX: Z48.817 Encounter for surgical aftercare following surgery on the skin and subcutaneous tissue (principal); K61.1 Rectal abscess | CPT/HCPCS: 99212 ==

== ENCOUNTER 2018-08-04 01:34 | Outpatient (RCR) | payer OTHER, SELFPAY ==
[2018-08-04 07:33] LABS: Absolute Eosinophil Count 0.06 k/cumm (0.0-0.7); Absolute Monocyte Count 0.17 k/cumm (0.11-0.7); Absolute Neutrophil Count 0.94 k/cumm (1.2-6.7); Eosinophils % 4.4; HCT 26.7 % (40.0-50.0); HGB 8.1 g/dL (13.5-17.5); Lymphocytes % 14.6; Mean Corp. HGB Concentration 30.3 g/dL (32.0-36.0); Mean Corpuscular Hemoglobin 25.9 pg (27.0-33.0); Mean Corpuscular Volume 85.3 fL (80-95); Mean Platelet Volume 11.6 fL (8.0-11.0); Monocytes % 12.4; Neutrophils % 68.6; RBC 3.13 m/cumm (4.50-6.00); RBC Distribution Width 16.4 % (11.8-14.1)
[2018-08-04 07:59] LABS: Ferritin 61 ng/mL (8-388)
[2018-08-04 08:11] LABS: White Blood Cell Count 1.37 k/cumm (4.4-10.8)
[2018-08-04 08:12] LABS: Anisocytosis 2+; Diff Comment Diff Reviewed; Hypochromasia 2+; Ovalocytes 2+; Platelet Count 60 x1000/uL (130-400); Poikilocytes 2+; Polychromasia Present
== END 2018-08-16 23:59 | disposition home or self-care (01) ==
LOC: INF 01:34
PROVIDERS: PCP Nurse Practitioner Family; Visit Provider Internal Medicine
DX: D47.2 Monoclonal gammopathy (principal); Z45.2 Encounter for adjustment and management of vascular access device
CPT/HCPCS: 36415; 86900; 86901; 82728; 85025

== ENCOUNTER 2018-09-15 01:18 | Outpatient (RCR) | payer OTHER, SELFPAY ==
[2018-09-08 07:23] LABS: Absolute Basophil Count 0.02 k/cumm (0.0-0.2); Absolute Eosinophil Count 0.11 k/cumm (0.0-0.7); Absolute Lymphocyte Count 0.26 k/cumm (1.2-3.4); Absolute Monocyte Count 0.09 k/cumm (0.11-0.7); Absolute Neutrophil Count 0.71 k/cumm (1.2-6.7); Basophils % 1.7; Eosinophils % 9.2; HCT 28.3 % (40.0-50.0); HGB 8.8 g/dL (13.5-17.5); Lymphocytes % 21.8; Mean Corp. HGB Concentration 31.1 g/dL (32.0-36.0); Mean Corpuscular Hemoglobin 25.4 pg (27.0-33.0); Mean Corpuscular Volume 81.8 fL (80-95); Mean Platelet Volume 10.2 fL (8.0-11.0); Monocytes % 7.6; Neutrophils % 59.7; RBC 3.46 m/cumm (4.50-6.00); RBC Distribution Width 16.4 % (11.8-14.1)
[2018-09-08 07:47] LABS: Hemoglobin A1C 6.9 % (4.5-6.2)
[2018-09-08 08:02] LABS: Ferritin 22 ng/mL (8-388)
[2018-09-08 08:12] LABS: Platelet Count 55 x1000/uL (130-400)
[2018-09-08 08:13] LABS: Anisocytosis 2+; Diff Comment Diff Reviewed; Hypochromasia 2+; White Blood Cell Count 1.19 k/cumm (4.4-10.8)
[2018-09-08 08:14] LABS: Microcytosis 2+; Ovalocytes 2+; Poikilocytes 2+
[2018-09-08 12:25] LABS: ALT 19 U/L (12-78); AST 36 U/L (15-37); Albumin 3.1 g/dL (3.4-5.0); Alkaline Phosphatase 204 U/L (46-116); Anion Gap 8.1 mmol/L (3-11); BUN 9 mg/dL (7-18); Bilirubin, Total 0.7 mg/dL (0.2-1.0); CO2 23.9 mmol/L (21.0-32.0); CREATININE 0.81 mg/dL (0.70-1.30); Calcium 8.5 mg/dL (8.5-10.1); Chloride 106 mmol/L (98-107); Glucose 280 mg/dL (70-100); Potassium 4.2 mmol/L (3.5-5.1); Sodium 138 mmol/L (136-145); Total Protein 6.9 g/dL (6.4-8.2)
[2018-09-09] MEDS: Normal Saline Flush 10 ML SYR IVP (07:15)
[2018-09-09] MEDS: IRON SUCROSE COMPLEX 200 MG in Normal Saline 100 ML 110 MG IVPB (07:15)
[2018-09-09 09:42] LABS: PSA, Screening 21.8 ng/ml (0-6.5)
[2018-09-09 11:22] LABS: Kappa Free Light Chain 5.41 mg/dl (0.33-1.94); Lambda Free Light Chain 4.07 mg/dl (0.57-2.63)
[2018-09-09 15:53] LABS: Albumin 51.2 % (55.8-66.1); Total Protein 6.2 g/dl (6.3-8.2)
[2018-09-15] MEDS: Normal Saline Flush 10 ML SYR IVP (10:41)
[2018-09-15] MEDS: IRON SUCROSE COMPLEX 200 MG in Normal Saline 100 ML 110 MG IVPB (10:41)
== END 2018-09-16 23:59 | disposition home or self-care (01) ==
LOC: INF 01:18
PROVIDERS: PCP Nurse Practitioner Family; Visit Provider Internal Medicine
DX: D47.2 Monoclonal gammopathy (principal); Z45.2 Encounter for adjustment and management of vascular access device
CPT/HCPCS: 36415; 80053; 84153; 86900; 86901; 96365; 82728; 83036; 83883; 84155; 84165; 85025; 86320; J1756

== ENCOUNTER 2018-09-17 10:41 | Outpatient (REF) | payer OTHER, SELFPAY ==
[2018-09-18 11:38] LABS: Specimen Description Feces
[2018-09-18 11:39] LABS: Campylobacter PCR SEE COMMENTS; Salmonella PCR SEE COMMENTS; Shiga Toxin PCR SEE COMMENTS; Shigella/Enteroinvasive Ecoli SEE COMMENTS
[2018-09-18 15:01] LABS: Result Positive
== END 2018-09-17 11:01 ==
LOC: NCHCN 10:41
PROVIDERS: PCP Nurse Practitioner Family; Visit Provider Nurse Practitioner Family
DX: R19.7 Diarrhea, unspecified (principal)
CPT/HCPCS: 87329; 87505; 82272; 83630; 87177; 87324; 87798

== ENCOUNTER 2018-09-25 17:59 | Emergency (ER) | payer OTHER, SELFPAY ==
[2018-09-25] VITALS (36 sets, daily range): BP systolic 121–159; BP diastolic 53–65; PULSE 67–77; RESP 9–20; TEMP 36.7; O2SAT 92–99
[2018-09-25 18:46] LABS: Abs Immature Grans 0.02 k/cumm (0.0-0.09); Absolute Basophil Count 0.01 k/cumm (0.0-0.2); Absolute Eosinophil Count 0.12 k/cumm (0.0-0.7); Absolute Monocyte Count 0.26 k/cumm (0.11-0.7); Absolute Neutrophil Count 4.64 k/cumm (1.2-6.7); Basophils % 0.2; Eosinophils % 2.2; HCT 29.5 % (40.0-50.0); HGB 9.2 g/dL (13.5-17.5); Immature Grans % 0.4; Lymphocytes % 5.6; Mean Corp. HGB Concentration 31.2 g/dL (32.0-36.0); Mean Corpuscular Hemoglobin 26.3 pg (27.0-33.0); Mean Corpuscular Volume 84.3 fL (80-95); Mean Platelet Volume 11.9 fL (8.0-11.0); Monocytes % 4.9; Neutrophils % 86.7; RBC Distribution Width 19.5 % (11.8-14.1); White Blood Cell Count 5.35 k/cumm (4.4-10.8)
[2018-09-25 19:08] LABS: ALT 6 U/L (12-78); AST 29 U/L (15-37); Alkaline Phosphatase 159 U/L (46-116); Anion Gap 10.6 mmol/L (3-11); BUN 13 mg/dL (7-18); Bilirubin, Total 1.2 mg/dL (0.2-1.0); CO2 23.4 mmol/L (21.0-32.0); CREATININE 0.84 mg/dL (0.70-1.30); Calcium 8.1 mg/dL (8.5-10.1); Chloride 108 mmol/L (98-107); Glucose 147 mg/dL (70-100); Magnesium 1.8 mg/dL (1.8-2.4); Potassium 3.8 mmol/L (3.5-5.1); Sodium 142 mmol/L (136-145); Total Protein 6.6 g/dL (6.4-8.2)
[2018-09-25 19:09] LABS: Platelet Count 48 x1000/uL (130-400)
[2018-09-25 19:10] LABS: Anisocytosis 2+; Hypochromasia 1+; Ovalocytes 2+
--- NOTE | 2018-09-25 19:10 | W.ED.GENAD ---
Discharge Plan Disposition Patient Disposition: HOME Condition: Improving Discharge Details Chief Complaint: Chest Pain Clinical Impression: Chest pain, Thrombocytopenia, Anemia, Side effect of medication Primary Care Provider: Joanne Riggins ED Provider: Haider Tejada Home Meds and New Rx's Prescriptions: Continued Lactobacillus acidophilus 680 mg (750 million cell) capsule 1,400 mmu cells PO DAILY RF: 0 melatonin 5 MG tablet 5 mg PO HS RF: 0 carbidopa-levodopa 25-100 mg tablet extended release 2 tab PO QID Qty: 240 RF: 11 pantoprazole 40 MG tablet,delayed release (DR/EC) 40 mg PO BID RF: 0 carvedilol 3.125 MG tablet 3.125 mg PO BID RF: 0 Novolog Flexpen U-100 Insulin 300 UNITS/3 ML insulin pen 0 units Sub-Q AC RF: 0 magnesium oxide 250 mg magnesium tablet 500 mg PO DAILY RF: 0 tramadol 50 mg tablet 25 mg PO .am PRN (Reason: Pain) RF: 0 Discharge Instructions Instructions: Chest Pain (ED), Anemia (ED) Additional Instructions: Continue to take your normally prescribed medication along with Claritin 10 mg daily for the next 3 days. You should start this tomorrow. You may take your tramadol as needed for pain and discomfort along with 400 mg of ibuprofen as needed every 6 hours. Return immediately to the emergency department for any new or significant worsening of symptoms otherwise keep your follow-up appoint with your primary care provider. Referrals: Joanne Riggins [Primary Care Provider] - 09/28/18 (Keep your appointment as scheduled with your primary care provider for follow up) Medical Decision Making Patient presenting to the emergency department for chief complaint of chest pain, headache, leg pain. Patient states that yesterday he got injection of medication to help his reduced white blood cells. Patient states history of prostate cancer that is undergone treatment and otherwise low lab results. He does state history of Parkinson's but that this feels completely different than anything he felt before. He does state that yesterday was his first dose of this medication. Physical exam shows no cardiac findings, normal clear lung sounds, no abdominal tenderness, no focal neurological findings. Plan to check labs, give IV fluids, and morphine for pain along with chest x-ray and head CT. Concern for possible medication side effects. Records were reviewed and patient given first dose of Pegfilgarastim.. Review of initial labs show improvement of patient's white blood cell counts and now is at 5.3, hemoglobin up to 9.2, platelets at 48 which is slightly lower than last labs but not significantly lower than previous episodes. CMP shows slightly elevated bilirubin with 1.2, AST normal ALT low, alk phos slightly high at 159. Troponin is negative. CT imaging shows 1. Negative for acute intracranial pathology. 2. Stable chronic sinusitis. Chest x-ray shows Mild vascular congestion suggested, otherwise no acute thoracic pathology Plan to discuss patient's case with hematology oncology at [facility]. Called and spoke with Dr. Caruso at [facility] hematology. After our discussion she feels that patient's symptoms are related to the Neulasta injection that he received for his pancytopenia yesterday. She recommended 10 mg of loratadine daily for the next 3 to 4 days and use of NSAIDs as needed for pain. Discussed patient's thrombocytopenia along with other lab results and she stated that low-dose NSAIDs would still be appropriate. Patient given 15 mg of ketorolac in emergency department along with loratadine. 3-hour troponin was performed along with repeat EKG and troponin has not changed and is still negative and EKG reviewed with attending physician shows sinus rhythm, rate of 70, normal axis, no acute STEMI and otherwise nondiagnostic. Given this patient was reassessed and did state that he did have some improvement of his symptoms but still had some discomfort. Thorough discussion of side effects of Neulasta was had with patient and afterwards patient stated he felt comfortable being discharged back home and states he already has follow-up appointment scheduled with his primary care provider on Friday. Return precautions were discussed with patient. After discussion of diagnosis and plan of care patient has no further needs, questions, or concerns and states clear understanding to return to the emergency department for any worsening symptoms. Lab Data Lab results reviewed: Yes I reviewed the patient's lab results. ECG Data Attestation: I personally reviewed and interpreted this ECG (s) as follows: Prior ECG tracings: available for review Interpretation: EKG reviewed with Dr. Alla Martinez attending physician. EKG shows sinus rhythm, rate of 73, normal axis, no acute STEMI. Compared to EKG dated March 2015 no acute changes HPI General Mode of arrival: ambulatory. Date/Time Provider Initiated Documentation: 09/25/18 18:28. Limitations to Documentation: no limitations. Information obtained by: patient, RN notes reviewed and old records reviewed. History of Present Illness 78 year old M presents to the emergency department with the chief complaint of Chest pain, headache, leg pain, described as moderate, with intensity rated at 8. Quality is described as aching, Patient started experiencing this hour(s) (4) and it has been constant. No relieving factors improve symptom(s), Patient did receive the following treatments prior to arrival, none Related Data Home Medications Medication Instructions Recorded Confirmed pantoprazole 40 mg PO BID 11/27/12 08/03/18 carvedilol 3.125 mg PO BID 05/30/13 08/03/18 melatonin 5 mg PO HS 08/27/17 08/03/18 Novolog Flexpen U-100 Insulin 0 units SUB-Q AC 04/05/18 08/03/18 magnesium oxide 500 mg PO DAILY 04/22/18 08/03/18 tramadol 50 mg tablet 25 mg PO .am PRN tab 04/22/18 08/03/18 carbidopa ER 25 mg-levodopa 100 mg 2 tab PO QID #240 tab 07/21/18 08/03/18 tablet,extended release Lactobacillus acidophilus 1,400 mmu cells PO DAILY cap 08/03/18 Previous Rx's Medication Instructions Recorded carbidopa ER 25 mg-levodopa 100 mg 2 tab PO QID #240 tab 07/21/18 tablet,extended release Allergies Allergy/AdvReac Type Severity Reaction Status Date / Time leuprolide acetate Allergy Severe Swelling/Ed Verified 08/03/18 14:34 [From Lupron] isabelle adhesive Allergy Intermediate Skin Rash Verified 08/03/18 14:34 enalapril [Enalapril] AdvReac Severe Hyperkalemi Verified 08/03/18 14:34 a aspirin AdvReac Intermediate Verified 08/03/18 14:34 esomeprazole magnesium AdvReac Intermediate Diarrhea Verified 08/03/18 14:34 [From Nexium] metformin AdvReac Intermediate Diarrhea Verified 08/03/18 14:34 acetaminophen AdvReac Mild Diarrhea Verified 08/03/18 14:34 General Stated Complaint: Chest Pain SHEKHAR: 2 Review of Systems Constitutional Denies chills, Denies fever(s) and Reports malaise Cardiovascular Reports as per HPI, Reports chest pain, Denies chest pain with activity, Denies syncope, Denies irregular heart rhythm, Denies palpitations and Denies dyspnea Respiratory Denies cough, Denies hemoptysis and Denies dyspnea Gastrointestinal Denies abdominal pain, Denies nausea and Denies vomiting Neurologic Denies syncope Psychiatric Denies anxiety Endocrine Denies palpitations [facility] Medical History DM (diabetes mellitus) Esophageal varices (Chronic) GERD (gastroesophageal reflux disease) HTN (hypertension) IBS (irritable bowel syndrome) Iron deficiency anemia Liver cirrhosis HANS (obstructive sleep apnea) Pancytopenia (Chronic) Parkinson disease Perirectal abscess (Acute) Ventral hernia (Chronic) Surgical History BONE MARROW BIOPSY (11/25/14) Colectomy colonoscopy (11/21/15) H/O ventral hernia repair (Chronic) History of bowel resection (Chronic) History of Leonid fundoplication (Chronic) Family History Maternal Cousin Colon cancer Maternal Cousin Colon cancer Social History Smoking/Tobacco Use Status: Former Tobacco Use Alcohol Intake: former Drug use: Never Household members: none Housing: apartment Do you feel safe at home: Yes Do you feel safe in your relationship?: Yes Additional Social history: drinks < 1/month Exam Const General: cooperative, no acute distress and not diaphoretic Nutritional Appearance: average body habitus Orientation: alert, awake and oriented x3 Limitations: mental status not altered Neck Neck: normal visual inspection, full ROM, trachea midline, supple and no anterior neck swelling Carotids: no bruits Chest Chest: normal inspection of the chest Resp Effort & Inspection: normal respiratory effort and able to speak in complete sentences Auscultation: clear to auscultation bilaterally Cardio Jugular venous pressure: no JVD Palpation: normal PMI Rate: regular rate Rhythm: regular rhythm Heart Sounds: S1 normal, S2 normal, no click, no gallops, no murmurs and no rubs Bruits: no abdominal aortic bruits and no carotid bruits Pulses: radial pulses present bilaterally 2+ GI Inspection: normal to inspection Palpation: soft, no aortic enlargement, no pulsatile masses and nontender Auscultation: normal bowel sounds Skin General skin exam: no rashes or lesions noted Neuro General: alert, awake, oriented x3, tone normal, moves all extremities, no meningeal signs, no focal motor deficits, CN's II-XI intact bilaterally and not confused Course Vital Signs Temperature 36.7 C 09/25/18 18:13 Pulse 73 09/25/18 18:13 Respiratory Rate 16 09/25/18 18:13 Blood Pressure 153/61 H 09/25/18 18:13 Pulse Oximetry 96 09/25/18 18:13 Temperature 36.7 C 09/25/18 18:13 Temperature Source Skin 09/25/18 18:13 Pulse 73 09/25/18 18:13 Respiratory Rate 16 09/25/18 18:13 Respiratory Effort Non-Labored 09/25/18 18:22 Blood Pressure 153/61 H 09/25/18 18:13 Blood Pressure Position Sitting 09/25/18 18:13 Pulse Oximetry 96 09/25/18 18:13 Oxygen Delivery Method Room Air 09/25/18 18:13 Oxygen Flow Rate 0 09/25/18 18:13 Pain Level 9 09/25/18 18:33
[2018-09-25 19:11] LABS: Poikilocytes 2+; Polychromasia Present
[2018-09-25 19:13] LABS: Troponin I < 0.05 ng/mL (0.00-0.06)
[2018-09-25] MEDS: Normal Saline 1,000 ML 250 ML IV (19:17)
--- NOTE | 2018-09-25 19:54 | DI.COMBO_ITS ---
SYMPTOM/DIAGNOSIS: CHEST PAIN, HEADACHE NONCONTRAST HEAD CT: A noncontrast cranial CT was performed. There is moderate generalized cerebral atrophy. There are minimal patchy areas of decreased attenuation in periventricular white matter consistent with mild microvascular ischemic change. No evidence of acute intracranial hemorrhage, mass effect or midline shift. There is predominant opacification of the maxillary antra bilaterally consistent with chronic maxillary sinusitis. Moderate ethmoid sinusitis noted as well and there is partial opacification of right sphenoid sinus as well. Frontal sinuses are clear. Increased radiodensity left mastoid air cells and apparent prior left mastoidectomy. Temporal bone structures otherwise appear intact. Orbital structures appear intact. CONCLUSION: Chronic sinusitis and possible chronic/acute mastoiditis with apparent prior left mastoid surgical procedure as described above. Please correlate clinically. No evidence of acute intracranial process. PA AND LATERAL CHEST: The heart is not enlarged. The diaphragm is mildly elevated on the left. This finding has been present on previous examinations. Question streaky radiodensities left lung base, some prominence of pulmonary vascular markings noted. No convincing consolidation. No pleural effusion. CONCLUSION: No evidence of acute process.
--- NOTE | 2018-09-25 20:12 | DI.VRAD_ITS ---
EXAM: XR Chest, 2 Views EXAM DATE/TIME: 09/25/2018 7:54 PM CLINICAL HISTORY: 78 years old, male; Chest pain; Type not specified TECHNIQUE: Imaging protocol: XR of the chest, 2 views. COMPARISON: SC XR PORTABLE CHEST AP 04/06/2018 4:24 PM FINDINGS: Lungs: Mild vascular congestion is suggested. No acute interstitial or airspace disease. Pleural space: Unremarkable. No pleural effusion. No pneumothorax. Heart/Mediastinum: Stable mild cardiomegaly. Upper mediastinal silhouette is unremarkable. Diaphragm: Stable elevation of the left hemidiaphragm. Bones/joints: Old/healed right rib fractures are seen. No acute skeletal abnormality. IMPRESSION: Mild vascular congestion suggested, otherwise no acute thoracic pathology. Dictated and Authenticated by: Boston Wilson MD. Ordering:JUAN Maloney MD
--- NOTE | 2018-09-25 20:15 | DI.VRAD_ITS ---
EXAM: CT Head Without Contrast EXAM DATE/TIME: 09/25/2018 6:36 PM CLINICAL HISTORY: 78 years old, male; Pain; Headache not specified TECHNIQUE: Imaging protocol: Computed tomography images of the head without contrast. Coronal and sagittal reformatted images were created and reviewed. Radiation optimization: All CT scans at this facility use at least one of these dose optimization techniques: automated exposure control; mA and/or kV adjustment per patient size (includes targeted exams where dose is matched to clinical indication); or iterative reconstruction. COMPARISON: CT HEAD FOR STROKE PROTOCOL 04/08/2018 3:14 PM FINDINGS: Brain: Age related brain involution is present. No acute intracranial hemorrhage, mass effect, midline shift, or brain herniation. Diffuse subcortical and periventricular white matter hypodensities are most in favor with chronic small vessel disease. Ventricles: Compensatory exvacuo ventriculomegaly is present. Bones/joints: Unremarkable. No acute fracture. Sinuses: There is fluid within the sinuses, consistent with sinusitis, stable. Mastoid air cells: Mild opacification of the right mastoid air cells. Questionable prior left mastoid procedure with mild opacification. Findings are stable. Orbits: There have been bilateral intraocular lens replacements. Soft tissues: Unremarkable. IMPRESSION: 1. Negative for acute intracranial pathology. 2. Stable chronic sinusitis. Dictated and Authenticated by: Boston Wilson MD. Ordering:JUAN Maloney MD
[2018-09-25] MEDS: Ketorolac 15 MG/ML VIAL IVP (21:25)
[2018-09-25] MEDS: Loratidine 10 MG TAB PO (21:54)
[2018-09-25 22:23] LABS: Troponin I < 0.05 ng/mL (0.00-0.06)
== END 2018-09-25 23:21 | disposition home or self-care (01) ==
PROVIDERS: Emergency Provider Nurse Practitioner Family; PCP Nurse Practitioner Family
DX: R07.9 Chest pain, unspecified (principal); D64.9 Anemia, unspecified; D69.6 Thrombocytopenia, unspecified; R51 Headache; T50.995A Adverse effect of other drugs, medicaments and biological substances, initial encounter
CPT/HCPCS: 36415; 80053; 93005; 96361; 96374; 96375; 99285; 70450; 71046; 83735; 84484; 85025; 93010; J1885

== ENCOUNTER 2018-09-30 03:23 | Emergency (ER) | payer OTHER, SELFPAY ==
[2018-09-30] VITALS (30 sets, daily range): BP systolic 121–159; BP diastolic 55–79; PULSE 70–85; RESP 10–22; TEMP 36.8; O2SAT 96–99
--- NOTE | 2018-09-30 04:12 | W.ED.GENAD ---
Discharge Plan Disposition Patient Disposition: HOME Condition: Improving Discharge Details Chief Complaint: Chest Pain Clinical Impression: Chronic headaches, Chronic chest pain, Diarrhea Primary Care Provider: Joanne Riggins ED Provider: Alla Martinez Home Meds and New Rx's Prescriptions: New lidocaine [Lidoderm] 5 % adhesive patch,medicated 1 patch TP DAILY Qty: 15 RF: 0 Continued Lactobacillus acidophilus 680 mg (750 million cell) capsule 1,400 mmu cells PO DAILY RF: 0 melatonin 5 MG tablet 5 mg PO HS RF: 0 carbidopa-levodopa 25-100 mg tablet extended release 2 tab PO QID Qty: 240 RF: 11 pantoprazole 40 MG tablet,delayed release (DR/EC) 40 mg PO BID RF: 0 carvedilol 3.125 MG tablet 3.125 mg PO BID RF: 0 Novolog Flexpen U-100 Insulin 300 UNITS/3 ML insulin pen 0 units Sub-Q AC RF: 0 magnesium oxide 250 mg magnesium tablet 500 mg PO DAILY RF: 0 tramadol 50 mg tablet 25 mg PO .am PRN (Reason: Pain) RF: 0 Discharge Instructions Instructions: Chest Pain (ED), Acute Diarrhea (ED), General Headache (ED) Additional Instructions: Drink plenty of fluids and get plenty of rest. Use the Lidoderm patch to your chest as directed for pain. Follow-up with your primary care doctor within 1 week for reevaluation. Return immediately to the emergency department if you develop any worsening or new concerning symptoms. Discharge Data Discharge Date/Time-TO BE ENTERED AT DEPARTURE: 09/30/18 09:35 Discharge Physician: Alla Martinez Medical Decision Making 78yo M w/ a h/o DM, GERD, GI bleed, HTN, HLD, colon cancer, prostate cancer who presents with chest pressure for the past 5 days. Patient was seen here 5 days ago for the same pain and had negative cardiac work-up and was discharged home. The ED provider at that time had discussed with patient's surveillance systems engineer at [facility] who stated that his pain was likely due to his Neulasta injection which she was given 1 day before the pain started and is a side effect. Patient was advised to take NSAIDs and Claritin. He states his last dose of Claritin was yesterday and he has not taken any NSAIDs. EKG on arrival notes a rate of 74, sinus with no acute ST T wave ischemic changes. Considering patient's age and history, will order cardiac work-up and CT chest to rule out dissection versus PE. Presentation could possibly be due to a side effect from Neulasta. He denies any infectious symptoms, fever, shortness of breath or vomiting. As patient states his headache has been chronic since Friday and has no acute change in this and no focal deficits on exam with a normal CT head 4 days ago, do not see an indication for repeat CT head at this time. 0640 --labs and imaging reviewed. White blood cell count 12.05, hemoglobin 10, platelets 52, all increased from last check. Troponin negative. CT chest negative for acute findings. Case discussed with [facility] hematology who stated that patient's bone and extremity pain could likely be contributed to the Neulasta, but would not suspect continued chest pain and headache lasting this long several days later. 0710 -- Patient admits to relief of his headache with Toradol but still complaining of chest pain. He states his chest pain is worse with movement and palpation. His anterior chest is significantly tender to palpation. He has had an episode of diarrhea here. He has been taking Cipro for this diarrhea. Will place a Lidoderm patch and give a dose of oxycodone. A repeat EKG was done which noted a rate of 79, sinus with no acute ST changes. Second troponin negative. 0820 -- Pt states headache returning but chest pain much improved. Review of chart notes a history of chronic daily headaches. Suspect with patient's recent diarrhea, could be complicated with dehydration. Will give a dose of Compazine, Decadron and another bolus IV fluids as well as tray of food and discharged home. Patient sent with prescription for Lidoderm patch. Advised to follow-up with the primary care doctor for reevaluation and to return here at any time if worse. Medical Records Medical records reviewed: Yes I reviewed the patient's medical records. Imaging Data Radiologic Study: Radiologist's impression: CT Angiography Chest With Contrast EXAM DATE/TIME: 09/30/2018 5:28 AM CLINICAL HISTORY: 78 years old, male; Chest pain; Type not specified; Prior surgery; Surgery date: 6+ months; Surgery type: Hiatal hernia repair, colon resection; Additional info: Chest pain, ? pe, ? dissection TECHNIQUE: Imaging protocol: Axial computed tomographic angiography images of the chest with intravenous contrast using CT angiography protocol. Coronal and sagittal reformatted images were created and reviewed. 3D rendering: MIP reconstructed images were created and reviewed. Radiation optimization: All CT scans at this facility use at least one of these dose optimization techniques: automated exposure control; mA and/or kV adjustment per patient size (includes targeted exams where dose is matched to clinical indication); or iterative reconstruction. Contrast material: [id number];Contrast volume: 95 ml;Contrast route: IV RAC 18G; COMPARISON: CR XR CHEST 2V PA LATERAL 09/25/2018 7:53 PM FINDINGS: Pulmonary arteries: Normal. No pulmonary emboli. Aorta: Unremarkable. No aortic aneurysm. No aortic dissection. Lungs: Unremarkable. No consolidation. No masses. Pleural space: Unremarkable. No pneumothorax. No pleural effusion. Heart: Unremarkable. No cardiomegaly. No pericardial effusion. Mediastinum: Large hiatal hernia. Liver: Moderate perihepatic fluid. Benign hepatic cyst, right lobe, measuring 14 mm. Contour of the liver is somewhat nodular. Moderate hepatic steatosis. Gallbladder and bile ducts: Post cholecystectomy. Spleen: Marked splenomegaly. Kidneys and ureters: Few bilateral renal cysts; largest, right kidney, measuring 51 mm. Subcentimeter nonobstructing right renal calculus. Stomach and bowel: A loop of small bowel extends into the hernia sac. No evidence of bowel compromise. No obstruction. Intraperitoneal space: Mild perisplenic fluid. Lymph nodes: Unremarkable. No enlarged lymph nodes. Bones/joints: Unremarkable. No acute fracture. Soft tissues: Small ventral hernia, left upper quadrant. Other findings: Postoperative changes are noted in the upper abdomen, incompletely evaluated. IMPRESSION: No acute findings. No pulmonary embolus. No aortic aneurysm/dissection. Findings in the upper abdomen consistent with hepatocellular disease, severe. Lab Data Lab results reviewed: Yes I reviewed the patient's lab results. Laboratory Tests Range/Units 09/30/18 09/30/18 09/30/18 03:40 03:40 07:17 WBC (4.4-10.8) k/cumm 12.05 H RBC (4.50-6.00) m/cumm 3.77 L Hgb (13.5-17.5) g/dL 10.0 L Hct (40.0-50.0) % 32.1 L MCV (80-95) fL 85.1 MCH (27.0-33.0) pg 26.5 L MCHC (32.0-36.0) g/dL 31.2 L RDW (11.8-14.1) % 21.3 H Plt Count (130-400) x1000/uL 52 L MPV (8.0-11.0) fL 11.6 H Immature Gran % 0.0 Neutrophils % 83.0 Band Neutrophils % % 1.0 Lymphocytes % 4.0 Monocytes % 10.0 Eosinophils % 2.0 Basophils % 0.0 Absolute Neutrophils (1.2-6.7) k/cumm 10.12 H Absolute Lymphocytes (1.2-3.4) k/cumm 0.48 L Absolute Monocytes (0.11-0.7) k/cumm 1.21 H Absolute Eosinophils (0.0-0.7) k/cumm 0.24 Absolute Basophils (0.0-0.2) k/cumm 0.00 Differential Comment Manual differential RBC Morphology See below Poikilocytosis 1+ Anisocytosis 1+ Sodium (136-145) mmol/L 142 Potassium (3.5-5.1) mmol/L 3.8 Chloride (98-107) mmol/L 108 H Carbon Dioxide (21.0-32.0) mmol/L 25.8 Anion Gap (3-11) mmol/L 8.2 BUN (7-18) mg/dL 8 Creatinine (0.70-1.30) mg/dL 0.93 Estimated GFR/1.73 m2 (mL/min/1.73m2) >= 60.00 Glucose (70-100) mg/dL 127 H Calcium (8.5-10.1) mg/dL 8.1 L Magnesium (1.8-2.4) mg/dL 1.7 L Total Bilirubin (0.2-1.0) mg/dL 1.3 H AST (15-37) U/L 33 ALT (12-78) U/L 4 L Alkaline Phosphatase (46-116) U/L 247 H Troponin I (0.00-0.06) ng/mL < 0.05 < 0.05 Total Protein (6.4-8.2) g/dL 6.5 Albumin (3.4-5.0) g/dL 3.1 L ECG Data Attestation: I personally reviewed and interpreted this ECG (s) as follows: Interpretation: #1 -- Rate of 74, sinus, no acute ST elevation or depression. QTc 450. QRS 94. #2 -- Rate of 79, sinus, no acute ST elevation or depression. QTc 450. QRS 94. HPI General Mode of arrival: EMS. Date/Time Provider Initiated Documentation: 09/30/18 04:32. Limitations to Documentation: no limitations. Information obtained by: patient. HPI Narrative: Patient is a 78-year-old male with a history of prostate cancer, colon cancer, diabetes, hypertension, Parkinson's disease who presents with chest pressure for the past 5 days. Patient was seen here 5 days ago for the same complaint and states the pain has been constant since then. He describes it as a heavy weight on my chest . He admits to some nausea but denies any vomiting or shortness of breath. He states he received a Neulasta injection 6 days ago at the [facility]. He states since then he has had this chest pain, headache, nausea, dizziness, sensation of feeling off balance as well as diffuse body pain. He was seen here 5 days ago for the same complaint and and had a negative cardiac work-up and was discharged home. He was thought at that time that his symptoms were due to the Neulasta injection and was advised to take Claritin and NSAIDs. He states he finished his Claritin yesterday but denies any relief with this over the past few days. He denies any fever, cough, shortness of breath, vomiting, abdominal pain. He does also admit to watery brown diarrhea for the past few days. He states he is currently taking some antibiotics. Related Data Home Medications Medication Instructions Recorded Confirmed pantoprazole 40 mg PO BID 11/27/12 08/03/18 carvedilol 3.125 mg PO BID 05/30/13 08/03/18 melatonin 5 mg PO HS 08/27/17 08/03/18 Novolog Flexpen U-100 Insulin 0 units SUB-Q AC 04/05/18 08/03/18 magnesium oxide 500 mg PO DAILY 04/22/18 08/03/18 tramadol 50 mg tablet 25 mg PO .am PRN tab 04/22/18 08/03/18 carbidopa ER 25 mg-levodopa 100 mg 2 tab PO QID #240 tab 07/21/18 08/03/18 tablet,extended release Lactobacillus acidophilus 1,400 mmu cells PO DAILY cap 08/03/18 lidocaine [Lidoderm] 1 patch TP DAILY #15 each 09/30/18 Previous Rx's Medication Instructions Recorded carbidopa ER 25 mg-levodopa 100 mg 2 tab PO QID #240 tab 07/21/18 tablet,extended release lidocaine [Lidoderm] 1 patch TP DAILY #15 each 09/30/18 Allergies Allergy/AdvReac Type Severity Reaction Status Date / Time leuprolide acetate Allergy Severe Swelling/Ed Verified 08/03/18 14:34 [From Lupron] isabelle adhesive Allergy Intermediate Skin Rash Verified 08/03/18 14:34 enalapril [Enalapril] AdvReac Severe Hyperkalemi Verified 08/03/18 14:34 a aspirin AdvReac Intermediate Verified 08/03/18 14:34 esomeprazole magnesium AdvReac Intermediate Diarrhea Verified 08/03/18 14:34 [From Nexium] metformin AdvReac Intermediate Diarrhea Verified 08/03/18 14:34 acetaminophen AdvReac Mild Diarrhea Verified 08/03/18 14:34 General Stated Complaint: Chest Pain SHEKHAR: 2 Review of Systems Review of Systems All systems reviewed & are unremarkable except as noted in HPI and below Constitutional Reports as per HPI, Denies chills, Denies fever(s) and Reports headache(s) Eyes Denies blurry vision ENT Denies dizziness, Reports headache(s), Denies sore throat and Denies throat swelling Cardiovascular Reports chest pain and Denies dyspnea Respiratory Denies cough and Denies dyspnea Gastrointestinal Denies abdominal pain, Denies diarrhea, Reports nausea and Denies vomiting Genitourinary Denies hematuria and Denies dysuria Musculoskeletal Denies back pain and Denies numbness Integumentary/Breasts Denies lesions and Denies rash Neurologic Denies dizziness, Reports headache(s), Denies focal weakness and Denies numbness Allergic/Immunologic Denies throat swelling [facility] Medical History DM (diabetes mellitus) Esophageal varices (Chronic) GERD (gastroesophageal reflux disease) HTN (hypertension) IBS (irritable bowel syndrome) Iron deficiency anemia Liver cirrhosis HANS (obstructive sleep apnea) Pancytopenia (Chronic) Parkinson disease Perirectal abscess (Acute) Ventral hernia (Chronic) Surgical History BONE MARROW BIOPSY (11/25/14) Colectomy colonoscopy (11/21/15) H/O ventral hernia repair (Chronic) History of bowel resection (Chronic) History of Leonid fundoplication (Chronic) Family History Maternal Cousin Colon cancer Maternal Cousin Colon cancer Social History Smoking/Tobacco Use Status: Former Tobacco Use Alcohol Intake: former Drug use: Never Household members: none Housing: apartment Do you feel safe at home: Yes Do you feel safe in your relationship?: Yes Additional Social history: drinks < 1/month Exam Const General: cooperative, healthy appearing and no acute distress HENMT Head: normal to inspection Face and sinus: normal facial exam Eyes General: appearance normal, both eyes and all related structures Pupils: PERRL EOM: EOM intact bilaterally Neck Neck: normal visual inspection and No submandibular swelling Lymphatic: no lymphadenopathy noted Chest Chest: normal inspection of the chest and no tenderness Resp Effort & Inspection: normal respiratory effort and able to speak in complete sentences Auscultation: clear to auscultation bilaterally Cardio Rate: regular rate Rhythm: regular rhythm GI Inspection: normal to inspection Palpation: soft, not firm, not rigid and nontender Auscultation: normal bowel sounds Skin General skin exam: no rashes or lesions noted Neuro General: alert, awake and oriented x3 Cranial Nerves: CN's II-XI intact bilaterally Cognition: normal cognition Speech: speech normal Motor: muscle tone normal throughout and strength 5/5 throughout Sensory Exam: no sensory deficits noted Extrem General: normal to inspection, full ROM, normal capillary refill, no calf tenderness bilaterally and edema Laterality: bilateral (1+) Psych Appearance: grossly normal Mental Status: mental status grossly normal Speech and Movement: speech and movement normal Affect: normal affect Course Vital Signs Temperature 98.2 F 09/30/18 03:23 Pulse 78 09/30/18 03:23 Respiratory Rate 16 09/30/18 03:23 Blood Pressure 159/68 H 09/30/18 03:23 Pulse Oximetry 98 09/30/18 03:23 Temperature 98.2 F 09/30/18 03:23 Pulse 78 09/30/18 03:23 Respiratory Rate 16 09/30/18 03:45 Respiratory Effort Non-Labored 09/30/18 03:45 Respiratory Depth Normal 09/30/18 03:45 Respiratory Pattern Normal 09/30/18 03:45 Blood Pressure 159/68 H 09/30/18 03:23 Pulse Oximetry 98 09/30/18 03:23 Oxygen Delivery Method Room Air 09/30/18 03:23 Oxygen Flow Rate 0 09/30/18 03:23 Pain Level 8 09/30/18 03:23
[2018-09-30 04:36] LABS: AST 33 U/L (15-37); Albumin 3.1 g/dL (3.4-5.0); Alkaline Phosphatase 247 U/L (46-116); Anion Gap 8.2 mmol/L (3-11); BUN 8 mg/dL (7-18); Bilirubin, Total 1.3 mg/dL (0.2-1.0); CO2 25.8 mmol/L (21.0-32.0); CREATININE 0.93 mg/dL (0.70-1.30); Calcium 8.1 mg/dL (8.5-10.1); Chloride 108 mmol/L (98-107); Glucose 127 mg/dL (70-100); Magnesium 1.7 mg/dL (1.8-2.4); Potassium 3.8 mmol/L (3.5-5.1); Sodium 142 mmol/L (136-145); Total Protein 6.5 g/dL (6.4-8.2)
[2018-09-30 05:02] LABS: Abs Immature Grans 0.27 k/cumm (0.0-0.09); HCT 32.1 % (40.0-50.0); Mean Corp. HGB Concentration 31.2 g/dL (32.0-36.0); Mean Corpuscular Hemoglobin 26.5 pg (27.0-33.0); Mean Corpuscular Volume 85.1 fL (80-95); Mean Platelet Volume 11.6 fL (8.0-11.0); RBC 3.77 m/cumm (4.50-6.00); RBC Distribution Width 21.3 % (11.8-14.1); White Blood Cell Count 12.05 k/cumm (4.4-10.8)
[2018-09-30 05:08] LABS: Absolute Eosinophil Count 0.24 k/cumm (0.0-0.7); Absolute Lymphocyte Count 0.48 k/cumm (1.2-3.4); Absolute Monocyte Count 1.21 k/cumm (0.11-0.7); Absolute Neutrophil Count 10.12 k/cumm (1.2-6.7); Platelet Count 52 x1000/uL (130-400)
[2018-09-30 05:09] LABS: Anisocytosis 1+; Diff Comment Manual Differential; Poikilocytes 1+
[2018-09-30 05:21] LABS: ALT 4 U/L (12-78); Troponin I < 0.05 ng/mL (0.00-0.06)
--- NOTE | 2018-09-30 05:27 | DI.CT_ITS ---
SYMPTOMS/DIAGNOSIS: CHEST PAIN, ? DISSECTION/PE CHEST CTA FOR PULMONARY EMBOLISM: CT angiography was performed with multi slice acquisition and multi planar and 3D reconstruction. No pulmonary emboli or aortic dissection is seen. There are no pleural or pericardial effusions. There is mild bilateral gynecomastia. The lungs show minimal basilar atelectasis. The liver again shows cirrhotic changes. The spleen is enlarged. There is ascites around the liver. The patient is status post cholecystectomy. The adrenals are unremarkable. There is a cyst at the upper right kidney. The pancreas is unremarkable. IMPRESSION: Findings of cirrhosis. No acute abnormality is seen in the chest.
[2018-09-30] MEDS: Omnipaque 350 MG/ML 100 ML BTL IJ (05:35)
[2018-09-30] MEDS: Normal Saline 500 ML IV ×2 (06:29→08:28)
[2018-09-30] MEDS: Ketorolac 30 MG/ML VIAL IVP (06:29)
--- NOTE | 2018-09-30 06:51 | DI.VRAD_ITS ---
EXAM: CT Angiography Chest With Contrast EXAM DATE/TIME: 09/30/2018 5:28 AM CLINICAL HISTORY: 78 years old, male; Chest pain; Type not specified; Prior surgery; Surgery date: 6+ months; Surgery type: Hiatal hernia repair, colon resection; Additional info: Chest pain, ? pe, ? dissection TECHNIQUE: Imaging protocol: Axial computed tomographic angiography images of the chest with intravenous contrast using CT angiography protocol. Coronal and sagittal reformatted images were created and reviewed. 3D rendering: MIP reconstructed images were created and reviewed. Radiation optimization: All CT scans at this facility use at least one of these dose optimization techniques: automated exposure control; mA and/or kV adjustment per patient size (includes targeted exams where dose is matched to clinical indication); or iterative reconstruction. Contrast material: [id number];Contrast volume: 95 ml;Contrast route: IV RAC 18G; COMPARISON: CR XR CHEST 2V PA LATERAL 09/25/2018 7:53 PM FINDINGS: Pulmonary arteries: Normal. No pulmonary emboli. Aorta: Unremarkable. No aortic aneurysm. No aortic dissection. Lungs: Unremarkable. No consolidation. No masses. Pleural space: Unremarkable. No pneumothorax. No pleural effusion. Heart: Unremarkable. No cardiomegaly. No pericardial effusion. Mediastinum: Large hiatal hernia. Liver: Moderate perihepatic fluid. Benign hepatic cyst, right lobe, measuring 14 mm. Contour of the liver is somewhat nodular. Moderate hepatic steatosis. Gallbladder and bile ducts: Post cholecystectomy. Spleen: Marked splenomegaly. Kidneys and ureters: Few bilateral renal cysts; largest, right kidney, measuring 51 mm. Subcentimeter nonobstructing right renal calculus. Stomach and bowel: A loop of small bowel extends into the hernia sac. No evidence of bowel compromise. No obstruction. Intraperitoneal space: Mild perisplenic fluid. Lymph nodes: Unremarkable. No enlarged lymph nodes. Bones/joints: Unremarkable. No acute fracture. Soft tissues: Small ventral hernia, left upper quadrant. Other findings: Postoperative changes are noted in the upper abdomen, incompletely evaluated. IMPRESSION: No acute findings. No pulmonary embolus. No aortic aneurysm/dissection. Findings in the upper abdomen consistent with hepatocellular disease, severe. Dictated and Authenticated by: Dain Taylor MD. Ordering:AMRIT Gold MD
--- NOTE | 2018-09-30 07:08 | NUR.NOTE ---
Nursing Note: pt assisted to commode one assist. pt has very small soft brown BM, assisted back into stretcher. no signs of distress. MD at bedside to discuss plan of care.
[2018-09-30] MEDS: Lidocaine 5% Patch 1 PATCH (07:25)
[2018-09-30] MEDS: oxyCODONE 5 MG TAB (07:25)
[2018-09-30 07:45] LABS: Troponin I < 0.05 ng/mL (0.00-0.06)
[2018-09-30] MEDS: Prochlorperazine 10 MG/2 ML VIAL IVP (08:28)
[2018-09-30] MEDS: Dexamethasone 10 MG/ML VIAL IVP (08:28)
--- NOTE | 2018-09-30 10:29 | CMPROGNOTE_ITS ---
Care Management Progress Note CM consult requested by ED for RCT transport support. CM spoke with RCT who reported knowing Drake well and agreed to transport him home safely. Drake requested a FWW and W/C. RCT reported he is able to ambulate and only relies on motorized w/c for long distances. RCT agreed to transport Drake home from the ER. CM notified ER Computer BookkeeperAngella Mtz that RCT would be arriving to transport Drake.
== END 2018-09-30 09:35 | disposition home or self-care (01) ==
PROVIDERS: Emergency Provider Physician Assistant; PCP Nurse Practitioner Family
DX: R07.9 Chest pain, unspecified (principal); R51 Headache; G89.29 Other chronic pain; R19.7 Diarrhea, unspecified; R11.0 Nausea; E11.9 Type 2 diabetes mellitus without complications; Z79.4 Long term (current) use of insulin; I10 Essential (primary) hypertension; G20 Parkinson's disease
CPT/HCPCS: 36415; 71275; 80053; 93005; 96361; 96374; 96375; 99285; 83735; 84484; 85025; 93010; J0780; J1100; J1885; J3490

== ENCOUNTER 2018-10-06 01:53 | Outpatient (RCR) | payer OTHER, SELFPAY ==
[2018-09-22] MEDS: Normal Saline Flush 10 ML SYR IVP (07:42)
[2018-09-29] MEDS: Normal Saline Flush 10 ML SYR IVP (07:29)
[2018-09-29] MEDS: IRON SUCROSE COMPLEX 200 MG in Normal Saline 100 ML 110 MG IVPB (07:29)
[2018-10-06] MEDS: IRON SUCROSE COMPLEX 200 MG in Normal Saline 100 ML 110 MG IVPB (07:44)
[2018-10-06] MEDS: Normal Saline Flush 10 ML SYR IVP (07:44)
== END 2018-10-17 23:59 | disposition home or self-care (01) ==
LOC: INF 01:53
PROVIDERS: PCP Nurse Practitioner Family; Visit Provider Internal Medicine
DX: E61.1 Iron deficiency (principal)
CPT/HCPCS: 96365; J1756

== ENCOUNTER 2018-10-08 | Emergency (ER) | payer OTHER, SELFPAY ==
[2018-10-08] VITALS: BP 133/59; PULSE 90; RESP 21; O2SAT 96
--- NOTE | 2018-10-08 00:02 | ED.GENADUL_ITS ---
Discharge Plan Disposition Patient Disposition: HOME Condition: Good Discharge Details Chief Complaint: Trauma Clinical Impression: Injury of shoulder, right, Abrasion, multiple sites, Right clavicle fracture Primary Care Provider: Joanne Riggins ED Provider: Alla Martinez Home Meds and New Rx's Prescriptions: Continued Lactobacillus acidophilus 680 mg (750 million cell) capsule 1,400 mmu cells PO DAILY RF: 0 melatonin 5 MG tablet 10 mg PO HS RF: 0 carbidopa-levodopa 25-100 mg tablet extended release 2 tab PO QID Qty: 240 RF: 11 pantoprazole 40 MG tablet,delayed release (DR/EC) 40 mg PO DAILY RF: 0 carvedilol 3.125 MG tablet 3.125 mg PO BID RF: 0 Novolog Flexpen U-100 Insulin 300 UNITS/3 ML insulin pen 0 units Sub-Q AC RF: 0 magnesium oxide 250 mg magnesium tablet 250 mg PO DAILY RF: 0 lidocaine [Lidoderm] 5 % adhesive patch,medicated 1 patch TP DAILY Qty: 15 RF: 0 Changed tramadol 50 mg tablet 25 mg PO TID PRN (Reason: Pain) Qty: 0 RF: 0 Discharge Instructions Additional Instructions: Your CT scan of your head and cervical spine are negative. X-rays show evidence of previous old fracture of the clavicle. There may be a new nondisplaced fracture line so we will treat with sling, tramadol, ice. Keep your abrasions clean and covered until healed. Home health will come to evaluate you at home likely tomorrow. Follow-up with your scheduled appointment with Joanne Riggins next week. Return to the ED for any neurologic changes, worsening pain, difficulty breathing, other concerns or problems. Referrals: Joanne Riggins [Primary Care Provider] - Discharge Data Discharge Date/Time-TO BE ENTERED AT DEPARTURE: 10/08/18 09:06 Discharge Physician: Alla Martinez Medical Decision Making <Dom Reeves MD - Last Filed: 10/08/18 19:12> Patient here status post fall at home. No syncope or loss of consciousness. Not on blood thinners. Complaining of mild posterior neck pain but mostly right lateral neck and right clavicle pain. Has prior injury to the right clavicle and shoulder. Neurovascularly intact. Lungs clear. Chest wall nontender. TLS spine nontender. Abdomen benign. Will obtain CT head and neck as well as x-ray of right shoulder and clavicle. 01:10 - CT scan is negative for traumatic injury to brain or cervical spine. Preliminary radiology read questions possible nondisplaced acute fracture in addition to previous chronic fracture of the distal right clavicle. This is where the patient has pain. Will treat with Tylenol and sling. Follow-up in re check by primary care in 1 to 2 weeks. Return to ED if neurological changes, worsening pain, trouble breathing. 01:30 - Patient not sure how he will care for self at home with right arm in sling. Motorized wheel chair is broken. He is right hand dominant. Also reports that he cannot take Tylenol because of diarrhea. He does take tramadol once a day. We could increase this short term. Will hold here for night and have case management see him in the morning to determine needs at home and whether increase in services needed. <Alla Martinez DO - Last Filed: 10/11/18 22:04> Please see Dr. Reeves's note for initial presentation and course. Case endorsed to follow-up with care management regarding disposition. Patient presented to the ED for a fall after he attempted to transfer himself from his wheelchair to his bed missing the edge and landing on his right side. He complained of right-sided neck and shoulder pain. CT head and neck negative. A right shoulder x-ray noted a possible lateral nondisplaced clavicle fracture. Patient was placed in a sling and given a dose of his regular tramadol. Patient complaining of some return of pain upon my evaluation and given a dose of tramadol and feels much better. Patient is requesting to go home. Discussed case with care management who arranged for home health to evaluate patient likely tomorrow. Patient has some assistance at [facility] where he lives. Patient states he needs to get home for an appointment today that he has in [place]. Care management will arrange for staff at [facility] to help patient from our CT into his residence. Patient has an appointment with Joanne Riggins next week. He is advised to return here with any worsening or concerning symptoms. HPI <Dom Reeves MD - Last Filed: 10/08/18 19:12> General Mode of arrival: EMS . Date/Time Provider Initiated Documentation: 10/08/18 00:00 . Limitations to Documentation: no limitations . Information obtained by: patient, EMS, RN notes reviewed and old records reviewed . HPI Narrative: Patient presents to ED status post fall at home. Patient did not have syncope. He lost his balance and fell striking his right side on a dresser and then landing floor. He did not have a loss of consciousness. Fall occurred around 7:30 - 8:00 this evening. EMS was called close to the midnight because of increasing pain in his right shoulder and right neck. He denies headache. He denies neurologic changes. He denies difficulty breathing. He denies chest pain. EMS found him to have fairly significant pain in the right shoulder area. Some posterior neck pain so he was collared and transported for further evaluation. Related Data Home Medications Medication Instructions Recorded Confirmed pantoprazole 40 mg PO DAILY 11/27/12 10/08/18 carvedilol 3.125 mg PO BID 05/30/13 10/08/18 melatonin 10 mg PO HS 08/27/17 10/08/18 Novolog Flexpen U-100 Insulin 0 units SUB-Q AC 04/05/18 10/08/18 magnesium oxide 250 mg PO DAILY 04/22/18 10/08/18 carbidopa ER 25 mg-levodopa 100 mg 2 tab PO QID #240 tab 07/21/18 10/08/18 tablet,extended release Lactobacillus acidophilus 1,400 mmu cells PO DAILY cap 08/03/18 10/08/18 lidocaine [Lidoderm] 1 patch TP DAILY #15 each 09/30/18 10/08/18 tramadol 25 mg PO TID PRN #0 tab 10/08/18 10/08/18 Previous Rx's Medication Instructions Recorded carbidopa ER 25 mg-levodopa 100 mg 2 tab PO QID #240 tab 07/21/18 tablet,extended release lidocaine [Lidoderm] 1 patch TP DAILY #15 each 09/30/18 tramadol 25 mg PO TID PRN #0 tab 10/08/18 Allergies Allergy/AdvReac Type Severity Reaction Status Date / Time leuprolide acetate Allergy Severe Swelling/Ed Verified 10/08/18 00:10 [From Lupron] isabelle adhesive Allergy Intermediate Skin Rash Verified 10/08/18 00:10 enalapril [Enalapril] AdvReac Severe Hyperkalemi Verified 10/08/18 00:10 a aspirin AdvReac Intermediate Verified 10/08/18 00:10 esomeprazole magnesium AdvReac Intermediate Diarrhea Verified 10/08/18 00:10 [From Nexium] metformin AdvReac Intermediate Diarrhea Verified 10/08/18 00:10 acetaminophen AdvReac Mild Diarrhea Verified 10/08/18 00:10 General SHEKHAR: 2 Review of Systems <Dom Reeves MD - Last Filed: 10/08/18 19:12> Review of Systems As documented in HPI otherwise negative as below. Const: no fever, chills, weakness Resp: no cough, SOB, pleuritic pain CV: no CP, diaphoresis, edema, syncope GI: no abdominal pain, nausea, vomiting, diarrhea Neuro: no headache, numbness, focal weakness, confusion PFSH <Dom Reeves MD - Last Filed: 10/08/18 19:12> Medical History DM (diabetes mellitus) Esophageal varices (Chronic) GERD (gastroesophageal reflux disease) HTN (hypertension) IBS (irritable bowel syndrome) Iron deficiency anemia Liver cirrhosis HANS (obstructive sleep apnea) Pancytopenia (Chronic) Parkinson disease Perirectal abscess (Acute) Ventral hernia (Chronic) Surgical History BONE MARROW BIOPSY (11/25/14) Colectomy colonoscopy (11/21/15) H/O ventral hernia repair (Chronic) History of bowel resection (Chronic) History of Leonid fundoplication (Chronic) Social History Smoking/Tobacco Use Status: Former Tobacco Use Alcohol Intake: former Drug use: Never Household members: none Housing: apartment Do you feel safe at home: Yes Do you feel safe in your relationship?: Yes Additional Social history: drinks < 1/month Exam <Dom Reeves MD - Last Filed: 10/08/18 19:12> Narrative Exam Narrative: Vitals: Afebrile with normal vital signs. Normal pulse oximetry on room air. Const: Obese male in NAD. HEENT: NC/AT. Normal facial exam. Neck: Trachea midline. Collared. Minimal posterior cervical spine tenderness. Lungs: Normal respiratory effort. Lungs are clear. No chest wall tenderness. Cor: RRR without murmur/gallop. Good radial pulses. GI: Soft. NT/ND. No guarding or rebound. Back: No spinal tenderness. No posterior rib tenderness. Neuro: A+O x 3. GCS 15. CN grossly in tact. Good strength, sensation, mental status. Ext: Good ROM of LE without tenderness. LUE without tenderness. RUE with tenderness and decrease ROM due to pain at distal clavicle. Skin: Warm and dry. Abrasion behind left knee, right elbow, right tricep area. Sign Out <Dom Reeves MD - Last Filed: 10/08/18 19:12> Sign Out Data: Sign Out Comment: pending care management evaluation Last updated by Dom Reeves MD at 10/08/18 07:34
[2018-10-08 00:03] VITALS: BP 140/73; PULSE 92; RESP 18; TEMP 37.1; O2SAT 95
--- NOTE | 2018-10-08 00:08 | DI.RAD_ITS ---
SYMPTOM/DIAGNOSIS: TRAUMA/FALL RIGHT SHOULDER: Four views. There is a nondisplaced fracture of the distal right clavicle. The acromioclavicular joint appears intact. Old healed right rib fractures are seen. The glenohumeral joint is well maintained. The soft tissues are unremarkable. IMPRESSION: Acute nondisplaced fracture of the right distal clavicle.
--- NOTE | 2018-10-08 00:32 | DI.CT_ITS ---
SYMPTOM/DIAGNOSIS: TRAUMA/FALL CT BRAIN: Noncontrast examination. Comparison 09/25/18 There is cerebral atrophy consistent with the patient's age. Areas of decreased attenuation are seen in the white matter consistent with small vessel ischemic disease. No acute infarct, hemorrhage, midline shift or mass effect is identified. The ventricles are intact. The basilar cisterns are patent. There is again seen opacification of the maxillary sinuses right greater than left. There is thickening of the calvillo of the maxillary sinus consistent with chronic sinusitis. The mastoid air cells are hypoplastic but otherwise unremarkable. The calvarium is intact. IMPRESSION: No acute intracranial process. CT CERVICAL SPINE: Multiple contiguous axial images of the cervical spine were obtained. Sagittal and coronal reformatted images were evaluated on the [employer]'s workstation. There is normal alignment to the cervical spine. No acute fractures or subluxations are seen. The soft tissues are unremarkable. A comminuted and nondisplaced fracture of the distal right clavicle is noted. IMPRESSION: No acute abnormality Comminuted nondisplaced right clavicular fracture
--- NOTE | 2018-10-08 01:04 | DI.VRAD_ITS ---
EXAM: CT Head Without Contrast EXAM DATE/TIME: 10/08/2018 12:10 AM CLINICAL HISTORY: 78 years old, male; Injury or trauma; Fall; Initial encounter; Blunt trauma (contusions or hematomas); Consciousness not specified; Injury date: 10/07/2018 TECHNIQUE: Imaging protocol: Computed tomography images of the head without contrast. Radiation optimization: All CT scans at this facility use at least one of these dose optimization techniques: automated exposure control; mA and/or kV adjustment per patient size (includes targeted exams where dose is matched to clinical indication); or iterative reconstruction. COMPARISON: CT HEAD WO 09/25/2018 7:57 PM FINDINGS: Brain: Typical for age. No hemorrhage. No evidence of acute infarct. No mass. Ventricles: No ventriculomegaly. Bones/joints: Unremarkable. Sinuses: Maxillary sinuses are opacified. Mastoid air cells: Unremarkable. Soft tissues: Unremarkable. IMPRESSION: 1. No acute intracranial findings. 2. Chronic sinusitis changes. EXAM: CT Cervical Spine Without Contrast EXAM DATE/TIME: 10/08/2018 12:10 AM CLINICAL HISTORY: 78 years old, male; Injury or trauma; Fall; Initial encounter; Blunt trauma (contusions or hematomas); Consciousness not specified; Injury date: 10/07/2018 TECHNIQUE: Imaging protocol: Computed tomography images of the cervical spine without contrast. Radiation optimization: All CT scans at this facility use at least one of these dose optimization techniques: automated exposure control; mA and/or kV adjustment per patient size (includes targeted exams where dose is matched to clinical indication); or iterative reconstruction. COMPARISON: CT HEAD WO 09/25/2018 7:57 PM FINDINGS: Vertebrae: No acute fracture. Normal alignment. Vertebral body heights preserved. Discs/Spinal canal/Neural foramina: Typical for age. Soft tissues: Unremarkable. Lungs: Lung apices are unremarkable as visualized. IMPRESSION: No acute findings. Dictated and Authenticated by: Geo Valles MD. Ordering:INDU Fernandes MD
--- NOTE | 2018-10-08 01:05 | DI.VRAD_ITS ---
EXAM: XR Right Shoulder EXAM DATE/TIME: 10/08/2018 12:10 AM CLINICAL HISTORY: 78 years old, male; Injury or trauma; Fall; Initial encounter; Blunt trauma (contusions or hematomas; Shoulder; Right; Injury date: 10/07/2018; Injury details: Pain over RT clavicle TECHNIQUE: Imaging protocol: XR Right shoulder. Views: 2 or more views. COMPARISON: CR RIGHT SHOULDER COMPLETE 11/10/2016 10:20 PM FINDINGS: Bones/joints: Old fracture deformity distal aspect of the clavicle. Possible acute fracture line distal aspect of the clavicle. Old right rib fracture deformities. Soft tissues: Unremarkable. IMPRESSION: Possible nondisplaced fracture distal clavicle. Dictated and Authenticated by: eGo Valles MD. Ordering:INDU Fernandes MD
[2018-10-08] MEDS: traMADol 50 MG TAB 25 MG PO (01:35)
--- NOTE | 2018-10-08 01:39 | NUR.NOTE ---
Nursing Note: Pt unable to get ride home, son is here visiting but only has his motorcycle per pt. Pt is also concerned about his inability to take care of himself at home since he is right hand dominant and right arm is now in sling. Lives alone, has a wheelchair but his motorized w/c is broken. 1 person assist stand pivot from w/c to bed- pt is very unsteady on feet and fall risk. Moved to room 6, medicated as prescribed- ice pack applied to right clavicle, sling in place. Will hold in ER overnight until care management arrives in morning- referral in place.
--- NOTE | 2018-10-08 07:21 | NUR.NOTE ---
Nursing Note: Nursing report received from Rachelle LIMON at 0700. Currently waiting for care management to interview the pt to evaluate if discharge is safe and what resources the patient may need.
--- NOTE | 2018-10-08 07:42 | NUR.NOTE ---
Nursing Note: Checked on patient. He is resting quietly. PT was informed that we are waiting on care management to see him.
[2018-10-08 08:05] VITALS: BP 138/92; PULSE 81; RESP 16; TEMP 36.8; O2SAT 95
[2018-10-08] MEDS: traMADol 50 MG TAB PO (08:20)
--- NOTE | 2018-10-08 08:33 | NUR.NOTE ---
Nursing Note: Care management has seen the patient. Both are working together to come up with a plan of care.
== END 2018-10-08 09:06 | disposition home or self-care (01) ==
PROVIDERS: Emergency Provider Physician Assistant; PCP Nurse Practitioner Family
DX: S42.034A Nondisplaced fracture of lateral end of right clavicle, initial encounter for closed fracture (principal); S49.91XA Unspecified injury of right shoulder and upper arm, initial encounter; S50.311A Abrasion of right elbow, initial encounter; S80.212A Abrasion, left knee, initial encounter; W05.0XXA Fall from non-moving wheelchair, initial encounter; Z60.2 Problems related to living alone; G20 Parkinson's disease; Z99.3 Dependence on wheelchair; I10 Essential (primary) hypertension; E11.9 Type 2 diabetes mellitus without complications; Z87.81 Personal history of (healed) traumatic fracture
CPT/HCPCS: 23500; 99284; 70450; 72125; 73030; 99281; L3650

== ENCOUNTER 2018-10-27 00:38 | Outpatient (RCR) | payer OTHER, SELFPAY ==
[2018-10-27 07:24] LABS: Abs Immature Grans 0.01 k/cumm (0.0-0.09); Absolute Basophil Count 0.01 k/cumm (0.0-0.2); Absolute Eosinophil Count 0.14 k/cumm (0.0-0.7); Absolute Monocyte Count 0.22 k/cumm (0.11-0.7); Absolute Neutrophil Count 1.15 k/cumm (1.2-6.7); Basophils % 0.6; Eosinophils % 8.1; HCT 31.5 % (40.0-50.0); HGB 10.3 g/dL (13.5-17.5); Immature Grans % 0.6; Lymphocytes % 11.6; Mean Corp. HGB Concentration 32.7 g/dL (32.0-36.0); Mean Corpuscular Hemoglobin 28.5 pg (27.0-33.0); Mean Platelet Volume 11.1 fL (8.0-11.0); Monocytes % 12.7; Neutrophils % 66.4; RBC 3.62 m/cumm (4.50-6.00); RBC Distribution Width 17.8 % (11.8-14.1)
[2018-10-27 08:04] LABS: Diff Comment Agrees w/ Instrument; Platelet Count 50 x1000/uL (130-400)
[2018-10-27 08:05] LABS: Hypochromasia 2+; Poikilocytes 2+; Polychromasia Present
[2018-10-27 08:08] LABS: White Blood Cell Count 1.73 k/cumm (4.4-10.8)
== END 2018-11-16 23:59 | disposition home or self-care (01) ==
LOC: INF 00:38
PROVIDERS: PCP Nurse Practitioner Family; Visit Provider Internal Medicine
DX: G20 Parkinson's disease (principal); G25.81 Restless legs syndrome; E11.9 Type 2 diabetes mellitus without complications; I10 Essential (primary) hypertension; Z79.84 Long term (current) use of oral hypoglycemic drugs; D64.9 Anemia, unspecified
CPT/HCPCS: 36415; 86900; 86901; 99214; 85025

== ENCOUNTER 2018-11-24 02:00 | Outpatient (RCR) | payer OTHER, SELFPAY ==
[2018-11-24 07:24] LABS: Absolute Basophil Count 0.01 k/cumm (0.0-0.2); Absolute Eosinophil Count 0.11 k/cumm (0.0-0.7); Absolute Monocyte Count 0.15 k/cumm (0.11-0.7); Absolute Neutrophil Count 0.88 k/cumm (1.2-6.7); Basophils % 0.7; Eosinophils % 8.1; HCT 30.5 % (40.0-50.0); HGB 10.2 g/dL (13.5-17.5); Lymphocytes % 14.8; Mean Corp. HGB Concentration 33.4 g/dL (32.0-36.0); Mean Corpuscular Hemoglobin 29.5 pg (27.0-33.0); Mean Corpuscular Volume 88.2 fL (80-95); Mean Platelet Volume 10.5 fL (8.0-11.0); Monocytes % 11.1; Neutrophils % 65.3; RBC 3.46 m/cumm (4.50-6.00); RBC Distribution Width 15.6 % (11.8-14.1)
[2018-11-24 08:09] LABS: Platelet Count 49 x1000/uL (130-400); White Blood Cell Count 1.35 k/cumm (4.4-10.8)
[2018-11-24 08:10] LABS: Diff Comment Agrees w/ Instrument
[2018-11-24 08:11] LABS: Anisocytosis 1+; Poikilocytes 1+; Schistocytes 1+
== END 2018-12-17 23:59 | disposition home or self-care (01) ==
LOC: INF 02:00
PROVIDERS: PCP Nurse Practitioner Family; Visit Provider Internal Medicine
DX: D46.9 Myelodysplastic syndrome, unspecified (principal)
CPT/HCPCS: 36415; 86900; 86901; 85025

== ENCOUNTER 2018-12-22 01:35 | Outpatient (RCR) | payer OTHER, SELFPAY ==
[2018-12-22 07:48] LABS: Absolute Basophil Count 0.01 k/cumm (0.0-0.2); Absolute Eosinophil Count 0.08 k/cumm (0.0-0.7); Absolute Lymphocyte Count 0.26 k/cumm (1.2-3.4); Absolute Monocyte Count 0.14 k/cumm (0.11-0.7); Absolute Neutrophil Count 0.99 k/cumm (1.2-6.7); Basophils % 0.7; Eosinophils % 5.4; HCT 28.8 % (40.0-50.0); HGB 9.5 g/dL (13.5-17.5); Lymphocytes % 17.6; Mean Corpuscular Hemoglobin 29.6 pg (27.0-33.0); Mean Corpuscular Volume 89.7 fL (80-95); Mean Platelet Volume 10.7 fL (8.0-11.0); Monocytes % 9.5; Neutrophils % 66.8; RBC 3.21 m/cumm (4.50-6.00)
[2018-12-22 08:08] LABS: White Blood Cell Count 1.48 k/cumm (4.4-10.8)
[2018-12-22 08:09] LABS: Diff Comment Diff Reviewed; Ovalocytes 2+; Platelet Count 49 x1000/uL (130-400)
[2018-12-22 08:19] LABS: Ferritin 50 ng/mL (8-388)
== END 2019-01-16 23:59 | disposition home or self-care (01) ==
LOC: INF 01:35
PROVIDERS: PCP Nurse Practitioner Family; Visit Provider Internal Medicine
DX: D64.9 Anemia, unspecified (principal); G25.81 Restless legs syndrome; E11.9 Type 2 diabetes mellitus without complications
CPT/HCPCS: 36415; 86900; 86901; 82728; 83036; 85025

== ENCOUNTER → 2019-01-26 07:55 | Outpatient (BNVA) | payer OTHER, SELFPAY | PROVIDERS: PCP Nurse Practitioner Family; Referring Provider Nurse Practitioner Family; Visit Provider Psychiatry & Neurology Neurology | DX: G20 Parkinson's disease (principal); G25.81 Restless legs syndrome | CPT/HCPCS: 99214 ==

== ENCOUNTER 2019-01-27 01:14 | Outpatient (CLI) | payer OTHER, SELFPAY ==
[2019-01-27 08:32] LABS: Absolute Basophil Count 0.01 k/cumm (0.0-0.2); Absolute Eosinophil Count 0.08 k/cumm (0.0-0.7); Absolute Monocyte Count 0.15 k/cumm (0.11-0.7); Basophils % 0.7; Eosinophils % 5.7; HCT 29.5 % (40.0-50.0); HGB 9.8 g/dL (13.5-17.5); Lymphocytes % 14.3; Mean Corp. HGB Concentration 33.2 g/dL (32.0-36.0); Mean Corpuscular Hemoglobin 29.4 pg (27.0-33.0); Mean Corpuscular Volume 88.6 fL (80-95); Mean Platelet Volume 11.9 fL (8.0-11.0); Monocytes % 10.7; RBC 3.33 m/cumm (4.50-6.00); RBC Distribution Width 14.9 % (11.8-14.1)
[2019-01-27 08:51] LABS: Platelet Count 46 x1000/uL (130-400)
[2019-01-27 08:52] LABS: Absolute Neutrophil Count 0.96 k/cumm (1.2-6.7); Diff Comment Agrees w/ Instrument; Hypochromasia 2+; Neutrophils % 68.6
[2019-01-27 08:55] LABS: ALT 20 U/L (16-63); AST 33 U/L (15-37); Albumin 2.9 g/dL (3.4-5.0); Alkaline Phosphatase 220 U/L (46-116); BUN 8 mg/dL (7-18); Bilirubin, Total 1.2 mg/dL (0.2-1.0); CREATININE 0.91 mg/dL (0.70-1.30); Chloride 104 mmol/L (98-107); Ferritin 43 ng/mL (26-388); Glucose 304 mg/dL (74-106); Poikilocytes 2+; Sodium 137 mmol/L (136-145); Total Protein 6.4 g/dL (6.4-8.2)
[2019-01-27] MEDS: Omnipaque 350 MG/ML 50 ML BTL IJ (09:48)
[2019-01-27] MEDS: Breeza Beverage 473 ML BTL PO (09:49)
[2019-01-27] MEDS: Omnipaque 350 MG/ML 100 ML BTL IJ (09:50)
--- NOTE | 2019-01-27 09:54 | DI.CT_ITS ---
EXAM: CT CHEST/ABD/PEL W CLINICAL HISTORY: PROSTATE CA,C61, RESTAGING EXAM TECHNIQUE: The exam was performed according to the usual protocol using 100 cc's of Omnipaque 350 an d oral barium. COMPARISON: CT ABDOMEN PELVIS W from 07/27/2018 CT CHEST PE CTA from 09/30/2018 FINDINGS: There is a nodular liver consistent with hepatic cirrhosis. The round hypodense lesion in the caudal aspect of the liver appears stable. No suspicious hepatic masses are seen. The portal, superior me senteric and splenic veins are patent. The patient is status post cholecystectomy. There is no biliary ductal dilatation. The pancreas is unremarkable. There is splenomegaly. The adrenal glands are unremarkable. The kidneys show normal and symmetric enhancement. There are bilateral renal cysts. Bilateral nephr olithiasis is present. The urinary bladder is intact. The prostate gland appears stable. There is atherosclerosis of the abdominal aorta but no aneurysmal dilatation. Varices are seen in th e abdomen. No significant abdominal or pelvic adenopathy is present. There is no pneumoperitoneum. There is a small to moderate amount of perihepatic, perisplenic and pelvic ascites. There is diverticulosis of the colon but no evidence of acute diverticulitis. No evidence of bowel o bstruction is seen. The patient is status post partial colectomy. There is a large hiatal hernia. The fluid collection adjacent to the rectum on the prior examination has resolved. There is a fat containing left para central anterior abdominal wall hernia. There are again seen pos tsurgical changes in the midline of the anterior abdominal wall. Stable soft tissue thickening is se en in the anterior abdominal wall centrally. This is likely postsurgical. Degenerative changes are seen in the spine. There is an old compression fracture of the L3 vertebral body. No evidence of osseous metastatic disease is present. The thoracic aorta is of normal caliber. Heart size is mildly enlarged. No pericardial effusion is seen. Coronary artery calcifications are present. The central pulmonary arteries are unremarkable. No pleural effusion or pneumothorax is identified. No significant thoracic adenopathy is present. There are dependent infiltrates seen in the lungs. T hese likely reflect atelectasis. No focal consolidating infiltrates are seen. No pulmonary nodules are present. The tracheobronchial tree is unremarkable. There is DISH noted in the thoracic spine. No evidence of thoracic metastatic disease is present. IMPRESSION: 1. No evidence of thoracic, abdominal or pelvic metastatic disease. 2. Chronic and incidental findings in the abdomen and pelvis as described above. 3. Dependent infiltrates in the lung bases. These may represent atelectasis or pneumonia. Please co rrelate clinically.
--- NOTE | 2019-01-27 10:54 | DI.NM_ITS ---
EXAM: NM BONE SCAN WHOLE BODY GRP CLINICAL HISTORY: PROSTATE CA,C61, RESTAGING EXAM. TECHNIQUE: Injected Dose: 25 mCi Tc-99m MDP Delayed Images: 2-3 hours. COMPARISON: CT CHEST/ABD/PEL W from 01/27/2019 FINDINGS: Symmetric axial uptake. Bilateral renal excretion is identified. There are a few areas of increased r adiotracer uptake in contiguous ribs, which appear to correspond to low rib fractures. The fractures appear subacute on the CT scan of the chest, abdomen and pelvis. No findings to suggest osseous met astatic disease are seen. IMPRESSION: 1. No evidence of metastatic disease.
[2019-01-28 11:47] LABS: IgA 464 mg/dL (85-499); IgG 1460 mg/dL (610-1,616); IgM 52 mg/dL (35-242); Kappa Free Light Chain 5.05 mg/dL (0.33-1.94); Lambda Free Light Chain 3.77 mg/dL (0.57-2.63)
[2019-01-28 14:34] LABS: Albumin 52.5 % (55.8-66.1); Comment (See Note); Monoclonal Spike 7.3 % (None Seen); Total Protein 6.3 g/dL (6.3-8.2)
[2019-01-30 07:32] LABS: Testosterone, Total 69 ng/dL (240-950)
== END 2019-01-27 01:34 ==
PROVIDERS: PCP Nurse Practitioner Family; Visit Provider Internal Medicine
DX: C61 Malignant neoplasm of prostate (principal); Z12.89 Encounter for screening for malignant neoplasm of other sites; K74.60 Unspecified cirrhosis of liver; N20.0 Calculus of kidney; R18.8 Other ascites; K44.9 Diaphragmatic hernia without obstruction or gangrene; I51.7 Cardiomegaly; R91.8 Other nonspecific abnormal finding of lung field; Z90.49 Acquired absence of other specified parts of digestive tract; D50.0 Iron deficiency anemia secondary to blood loss (chronic); D47.2 Monoclonal gammopathy; D61.818 Other pancytopenia; D64.9 Anemia, unspecified
CPT/HCPCS: 74177; 78306; 80053; 82784; 84403; 71260; 82728; 83883; 84153; 84165; 85025; J3490; Q9967

== ENCOUNTER 2019-02-08 01:18 | Outpatient (RCR) | payer OTHER, SELFPAY ==
[2019-02-08] MEDS: Normal Saline Flush 10 ML SYR IVP (10:28)
[2019-02-08] MEDS: IRON SUCROSE COMPLEX 200 MG in Normal Saline 100 ML 440 MG IVPB (10:28)
== END 2019-02-16 23:59 | disposition home or self-care (01) ==
LOC: INF 01:18
PROVIDERS: PCP Nurse Practitioner Family; Visit Provider Internal Medicine
DX: D47.2 Monoclonal gammopathy (principal)
CPT/HCPCS: 96365; J1756

== ENCOUNTER 2019-02-14 06:28 | Inpatient (IN) | payer OTHER, SELFPAY ==
[2019-02-14] VITALS (20 sets, daily range): BP systolic 135–186; BP diastolic 67–85; PULSE 63–86; RESP 19–28; TEMP 36–39.2; O2SAT 96–99
--- NOTE | 2019-02-14 05:28 | DI.RAD_ITS ---
EXAM: XR PORTABLE CHEST AP INDICATION: SOB, Cough, fever, r/o pneumonia. COMPARISON: XR CHEST 2V PA LATERAL from 09/25/2018 TECHNIQUE: 2D digital imaging was performed. FINDINGS: The heart appears mildly enlarged but stable. Pulmonary vasculature is within normal limits. No acu te focal consolidating infiltrate is seen. No pleural effusion or pneumothorax is identified. Old r ight rib fractures are present. Degenerative changes are seen in the spine. IMPRESSION: No acute pulmonary process.
--- NOTE | 2019-02-14 05:33 | W.ED.GENAD ---
Discharge Plan Disposition Patient Disposition: [facility] INPATIENT Discharge Details Chief Complaint: RespSymp Clinical Impression: Influenza A, Pancytopenia, Sepsis Primary Care Provider: Joanne Riggins ED Provider: Roni Matthews Home Meds and New Rx's Prescriptions: No Action tramadol 50 mg tablet 25 mg PO DAILY RF: 0 melatonin 5 MG tablet 10 mg PO HS RF: 0 carbidopa-levodopa 25-100 mg tablet extended release 2 tab PO QID Qty: 240 RF: 11 pantoprazole 40 MG tablet,delayed release (DR/EC) 40 mg PO DAILY RF: 0 carvedilol 3.125 MG tablet 3.125 mg PO BID RF: 0 magnesium oxide 250 mg magnesium tablet 250 mg PO DAILY RF: 0 Medical Decision Making This is a pleasant 78-year-old male who lives alone at home who presents today for evaluation of fall. He states that he got up to urinate this evening when his legs gave out from under him. He fell and hit his left ribs on some furniture on the way down, he did not hit his head. He crawled around on his hands and knees for some time until EMS arrived. He denies any loss of consciousness and he recalls the entire event. He does admit to mild rib pain at this time. Of note though he does admit to a cough with mild chills at home for the last day or 2. He is a mildly poor historian otherwise and offers no other clinical context. He does demonstrate minimal crackles in his lungs. He is febrile here. Signs and symptoms are certainly concerning for influenza versus community-acquired pneumonia. We will get a chest x-ray to rule out pneumonia and significant rib fracture. The remainder of his musculoskeletal exam demonstrates no other evidence of significant trauma requiring imaging. He did not hit his head, no intracranial imaging indicated at this time. We will rehydrate, evaluate for infectious etiology, treat pain and reassess. 7 AM Laboratory work-up has returned, patient is pancytopenic with a white count of 1.87, platelets of 46. These appear to be near baseline. He is immunocompromise. Influenza is positive. By definition he is septic with low white count, fever, and source of infection. Chest x-ray negative for pneumonia. With the patient's weakness, age, comorbidities, neutropenic status, in conjunction with his falls secondary to his weakness and systemic illness compounded by his lack of any help at home with no caregivers or significant others, I do not feel that he would be a good candidate for discharge, I feel he is at risk for decline. Do feel that admission is indicated in this scenario. We will contact the hospitalist for admission. Due to his age and comorbidities will start Tamiflu here. We are still pending urinalysis at this time. 7:30 AM Discussed the case with Dr. morton, he agrees with the assessment and plan. I will place admission orders. I have extensively reviewed the treatment plan with the patient. I have addressed all patient concerns at this time. I have also discussed the plan with the admitting physician and they agree with the current assessment and plan and have agreed to assume responsibility for the patient. All parties demonstrate verbal understanding and agreement with our assessment and plan at this time. EKG 5: 51 Rate 84, intervals normal, sinus rhythm, no significant ST elevations or depressions, no significant T wave inversions. Q waves are noted in lead III, however review of prior EKG from 09/30/2018 demonstrates identical findings. No evidence of STEMI. FINDINGS: Lungs: Chronic interstitial prominence. No consolidation. Pleural space: No pleural effusion. No pneumothorax. Heart/Mediastinum: Grossly stable Bones/joints: Chronic right-sided rib fractures, grossly stable IMPRESSION: No acute findings. No radiographic evidence for pneumonia Thank you for allowing us to participate in the care of your patient. Dictated and Authenticated by: Robert Mercedes MD 02/14/2019 6:34 AM Eastern Time ([place] & [place]) HPI General Date/Time Provider Initiated Documentation: 02/14/19 06:35. HPI Narrative: This is a pleasant 78-year-old male who is a poor historian, with a past medical history of Parkinson's, anemia for which she has received iron transfusions in the past, MGUS, previous colon cancer, prostate cancer, and basal cell carcinoma, diabetes, previous rib fractures and falls who presents today for evaluation of fall. Patient states that for the last few days he has had a mild cough, he felt under the weather. Today he got up to go to the bathroom and states that his legs went out from under him. He did not lose consciousness, he did not hit his head. He is not on blood thinners. On his way down to the ground he did hit his left ribs. He had mild pain at this point, he was able to crawl around on his hands and knees, contacted EMS, who then brought him to the ED for further assessment. Vitals per EMS did note evidence of fever. He was otherwise stable. Aside for complaint of cough with mild productivity as well as left rib pain after the fall the patient denies any other complaints of other chest pain, headache, neck pain, ear pain or vision changes, dysuria, fever, chills, numbness tingling or weakness. He denies any neck or back pain. No other complaints at this time. No other modifying factors. Related Data Home Medications Medication Instructions Recorded Confirmed pantoprazole 40 mg PO DAILY 11/27/12 02/14/19 carvedilol 3.125 mg PO BID 05/30/13 02/14/19 melatonin 10 mg PO HS 08/27/17 02/14/19 magnesium oxide 250 mg PO DAILY 04/22/18 02/14/19 carbidopa ER 25 mg-levodopa 100 mg 2 tab PO QID #240 tab 07/21/18 02/14/19 tablet,extended release tramadol 50 mg tablet 25 mg PO DAILY tab 01/26/19 02/14/19 Previous Rx's Medication Instructions Recorded carbidopa ER 25 mg-levodopa 100 mg 2 tab PO QID #240 tab 07/21/18 tablet,extended release Allergies Allergy/AdvReac Type Severity Reaction Status Date / Time leuprolide acetate Allergy Severe Swelling/Ed Verified 01/26/19 08:03 [From Lupron] isabelle adhesive Allergy Intermediate Skin Rash Verified 01/26/19 08:03 enalapril [Enalapril] AdvReac Severe Hyperkalemi Verified 01/26/19 08:03 a aspirin AdvReac Intermediate Verified 01/26/19 08:03 esomeprazole magnesium AdvReac Intermediate Diarrhea Verified 01/26/19 08:03 [From Nexium] metformin AdvReac Intermediate Diarrhea Verified 01/26/19 08:03 acetaminophen AdvReac Mild Diarrhea Verified 01/26/19 08:03 General Stated Complaint: RespSymp SHEKHAR: 3 Review of Systems All systems reviewed & are unremarkable except as noted in HPI and below PFSH Social History Smoking/Tobacco Use Status: Former Tobacco Use Quit Date: 06/17/94 Pack-years: 37 Second Hand Exposure: No Alcohol Intake: former Drug use: Never Household members: none Housing: apartment current occupation: Retired Seatbelt use: always Do you feel safe at home: Yes Do you feel safe in your relationship?: Yes Additional Social history: drinks < 1/month Exam Narrative Exam Narrative: 1.Const: Well-nourished, Well-developed, appearing stated age 2.Eyes: PERRL, no conjunctival injection, and symmetrical lids. There is no evidence of raccoon eyes, morales sign, CSF rhinorrhea, mastoid tenderness, cranial crepitus, hemotympanum, exophthalmos, or hyphema. Patient demonstrates intact dentition with no signs of tooth avulsion or fracture, no signs of jaw deformity, no evidence of a LeFort's fracture, with an intact palate, nose and orbital region. There is no evidence of a nasal septal hematoma. No proptosis. Jaw closes symmetrically. Airway is clear. Patient demonstrates good movement of cervical neck. There is no nuchal rigidity, no nuchal tenderness. Patient is able to flex the neck without any difficulty or significant pain. Negative Kernig's and Brudzinski sign. 3.ENT: Atraumatic external nose and ears. Moist MM. Neck: Symmetric, trachea midline, No thyromegaly.Of note there is evidence of tympanic membrane perforation with no drainage in the right ear. No evidence of clear infection at this time. No mastoid tenderness. This may be secondary to a chronic cholesteatoma which I cannot visualize now more secondary to previous old rupture without complete healing. 4.CVS: +S1/S2, No murmurs or gallops. Peripheral pulses 2+ and equal in all extremities. Brisk capillary refill in all extremities. 5.RESP: Unlabored respiratory effort. Crackles in the bases bilaterally. No no wheezes or rhonchi. 6.GI: Soft, Nontender/Nondistended, No hepatosplenomegaly. No guarding or rebound. 7.MSK: Normocephalic, Extremities w/o deformity or significant Ttp No cyanosis or clubbing, Normal movement of all extremities No gross deformities or discolorations or lesions. Tolerates full range of motion of extremities without tenderness. All compartments of upper and lower extremities are soft with no tenderness. Vascular exam demonstrates brisk capillary refill and intact pulses in all extremities. Pelvic exam demonstrates a stable pelvis, nontender to lateral compression and palpation of symphysis pubis. No tenderness over the cervical thoracic or lumbar spine. There is mild abrasion on the elbow, as well as the left thumbnail. Mild bruising and abrasions over the knees bilaterally, but no significant tenderness on palpation. Left ribs demonstrate 1 or 2 small bruises on the left lateral ribs around ribs 7 and 8. No evidence of paradoxical lung movements, significant trauma, subcutaneous crepitus, or other abnormality. No significant tenderness on palpation. Knees demonstrate good movement for flexion and extension with no evidence of fracture or significant osseous abnormality aside for the mild bruising and abrasions. No clinical evidence of significant musculoskeletal trauma. 8.Skin: Warm, Dry. No rashes or lesions. Please see musculoskeletal 9.Neuro: hydro technician II-XII grossly intact. Sensation grossly intact, no focal neurologic deficits. 10.Psych: (AAO) x3. Appropriate mood and affect Course Vital Signs Vital signs: Vital Signs Temperature 39.2 C H 02/14/19 05:28 Pulse 86 02/14/19 05:28 Respiratory Rate 20 02/14/19 05:28 Blood Pressure 158/83 H 02/14/19 05:28 Pulse Oximetry 97 02/14/19 05:28 Temperature 39.2 C H 02/14/19 05:28 Temperature Source Oral 02/14/19 05:28 Pulse 86 02/14/19 05:28 Respiratory Rate 20 02/14/19 05:28 Blood Pressure 158/83 H 02/14/19 05:28 Blood Pressure Position Supine 02/14/19 05:28 Pulse Oximetry 97 02/14/19 05:28 Oxygen Delivery Method Room Air 02/14/19 05:28 Oxygen Flow Rate 0 02/14/19 05:28 Pain Level 6 02/14/19 05:28 Lab/Test Results Lab/Test Results: 02/14/19 05:30 Blood Blood Culture - Pending 02/14/19 05:30 Blood Blood Culture - Pending
--- NOTE | 2019-02-14 06:08 | NUR.NOTE ---
pt arrives with home meds in plastic bag. Tramadol Rx on med rec, pt reports he takes daily at home, no tramadol brought with pt. Pt aware.
[2019-02-14 06:10] LABS: Lactate 1.8 mmol/L (0.6-1.4)
[2019-02-14 06:12] LABS: Abs Immature Grans 0.01 k/cumm (0.0-0.09); Absolute Eosinophil Count 0.03 k/cumm (0.0-0.7); Absolute Lymphocyte Count 0.19 k/cumm (1.2-3.4); Absolute Monocyte Count 0.23 k/cumm (0.11-0.7); Absolute Neutrophil Count 1.41 k/cumm (1.2-6.7); Eosinophils % 1.6; HCT 31.5 % (40.0-50.0); HGB 10.4 g/dL (13.5-17.5); Immature Grans % 0.5; Lymphocytes % 10.2; Mean Corpuscular Hemoglobin 29.1 pg (27.0-33.0); Monocytes % 12.3; Neutrophils % 75.4; RBC 3.58 m/cumm (4.50-6.00); RBC Distribution Width 15.5 % (11.8-14.1)
[2019-02-14] MEDS: Lidocaine 5% Patch 1 PATCH TP (06:22)
[2019-02-14] MEDS: Normal Saline 500 ML IV (06:23)
[2019-02-14 06:30] LABS: ALT 14 U/L (16-63); AST 33 U/L (15-37); Alkaline Phosphatase 163 U/L (46-116); Anion Gap 9.8 mmol/L (3-11); BUN 9 mg/dL (7-18); Bilirubin, Total 1.8 mg/dL (0.2-1.0); CO2 25.2 mmol/L (21.0-32.0); CREATININE 0.94 mg/dL (0.70-1.30); Calcium 7.9 mg/dL (8.5-10.1); Chloride 105 mmol/L (98-107); Glucose 155 mg/dL (74-106); Sodium 140 mmol/L (136-145); Total Protein 6.7 g/dL (6.4-8.2)
--- NOTE | 2019-02-14 06:34 | DI.VRAD_ITS ---
PROCEDURE INFORMATION: Exam: XR Chest, 1 View Exam date and time: 02/14/2019 5:44 AM Age: 78 years old Clinical indication: Cough and fever and shortness of breath; Patient HX: SOB, cough, fever; Additional info: R/O pneumonia TECHNIQUE: Imaging protocol: XR of the chest Views: 1 view. COMPARISON: CR XR CHEST 2V PA LATERAL 09/25/2018 7:53 PM FINDINGS: Lungs: Chronic interstitial prominence. No consolidation. Pleural space: No pleural effusion. No pneumothorax. Heart/Mediastinum: Grossly stable Bones/joints: Chronic right-sided rib fractures, grossly stable IMPRESSION: No acute findings. No radiographic evidence for pneumonia Dictated and Authenticated by: Robert Mercedes MD. Ordering:VENECIA Tamayo MD
[2019-02-14 06:36] LABS: Troponin I < 0.05 ng/Ml (<0.06)
[2019-02-14 06:37] LABS: Platelet Count 46 x1000/uL (130-400)
[2019-02-14 06:39] LABS: Diff Comment Diff Reviewed; White Blood Cell Count 1.87 k/cumm (4.4-10.8)
[2019-02-14 06:41] LABS: Poikilocytes 2+
--- NOTE | 2019-02-14 06:54 | NUR.NOTE ---
pt arrives in wet brief, inct care provided. aware of need for urine spec.
[2019-02-14] MEDS: Oseltamivir 75 MG CAP PO ×2 (07:00→19:33)
[2019-02-14 07:39] LABS: Bilirubin Negative (Negative); Blood Large (Negative); Clarity Clear (Clear); Glucose Negative (Negative); Ketones Negative (Negative); Leukocyte Esterase Negative (Negative); Nitrite Negative (Negative); Specific Gravity 1.025 (1.005-1.025); pH 6.5 (5-8)
[2019-02-14 07:46] LABS: Bacteria Rare HPF (Negative); C & S Indicated? C&S Done As Ordered; Casts Negative LPF (Negative); Crystals Negative HPF (Negative); Epithelial Cells Rare HPF (Negative); Mucus Trace (Negative); Other Cells Few Yeast (Negative); RBC 20-50 HPF (0-2); WBC 0-2 HPF (0-5)
[2019-02-14] MEDS: Carvedilol 3.125 MG TAB PO ×2 (10:05→16:24)
[2019-02-14] MEDS: Pantoprazole 40 MG TABCR PO (10:05)
--- NOTE | 2019-02-14 10:19 | PDOC.CMIN ---
- If Service Date Differs Date of service: 02/14/19 Time of Service: 10:19 Care Management Initial Assess REASON FOR HOSPITALIZATION:: Influenza PAST MEDICAL HISTORY/PAST SURGICAL HISTORY:: Medical History. Anxiety (Chronic). Cirrhosis of liver (Chronic). On beta blockers; Under care of Dr. Joe. Colon cancer (Chronic). Multiple polypectomies. DM (diabetes mellitus). Esophageal varices (Chronic). GERD (gastroesophageal reflux disease). 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 HTN (hypertension). Hyperlipidemia (Acute). IBS (irritable bowel syndrome). Iron deficiency (Chronic). CBcs and VBenofer on a regular basis. Liver cirrhosis. MGUS (monoclonal gammopathy of unknown significance) (Chronic). Mild cognitive impairment (Acute 08/17/15). HANS (obstructive sleep apnea). Pancytopenia (Chronic). Thought to be secondary to liver cirrhosis and splenic sequestratioin. Please note bone marrow biopsy was negative. Parkinson disease. Perirectal abscess (Resolved). Prostate cancer (Chronic 05/24/02). S/P radiation, Lupron, now on Zoladex. Restless leg syndrome (Acute 10/24/16). Streptococcal bacteremia (Resolved). s/p removal of buried central venous access device. no bleeding. no pain. cont care. Tubulovillous adenoma of colon (Resolved 11/21/15). Ventral hernia (Chronic). Visual hallucination (Inactive). Surgical History. BONE MARROW BIOPSY (11/25/14). LISSET. Colectomy. 1992. colonoscopy (11/21/15). H/O ventral hernia repair (Chronic). History of bowel resection (Chronic). History of Leonid fundoplication (Chronic). S/P cholecystectomy (Acute). S/P ear surgery (Acute) PREVIOUS FUNCTIONAL STATUS/SOCIAL/FAMILY SUPPORTS:: Drake lives at the [facility] alone. His , Gregoria is a resident at [facility] and he visits her regularly. He has a daughter Annabelle, and a step daughter Nara who are both identified as supports. He does not drive, and relys on [facility] for transportation. CURRENT FUNCTIONAL STATUS:: Drake was lying in bed sleeping when CM attempted to meet with him x3. CM attempted to speak with him using verbal cues, but was unsuccessful. CM let him rest, as he is acutely ill. CM will continue to follow. ADVANCE DIRECTIVES:: On file, Annabelle, daughter, listed as agent. Nara, step daughter, listed as alternate agent. Has patient been provided with information about the portal?: No Did the patient sign up for the portal?: No CODE STATUS:: DNR/DNI INSURANCE COVERAGE / FINANCIAL ISSUES:: [facility]/[employer], [employer] 100% CURRENT HOME/COMMUNITY SERVICES/EQUIPMENT:: Drake lives at the [facility], where there is a meal site. He relys on [facility] for transportation. He has a homemaker through [facility] moderate needs. He also owns a CPAP, wheelchair, motorized wheelchair, FWW, raised toilet seat, and shower chair. PRIMARY CARE PHYSICIAN:: Joanne Riggins POTENTIAL DISCHARGE NEEDS:: Evalutation for further needs, follow up appointments PATIENT/FAMILY EDUCATION NEEDS:: Review discharge instructions, discussion of self care needs ANTICIPATED BARRIERS TO DISCHARGE:: None identified at this time. TRANSPORTATION:: [facility] transportation anticipated. PLAN:: Anticipate Drake will return home once medically stable with a resumption of [facility] moderate needs. He will follow up with his PCP, as recommended. CM will coordinate [facility] transportation for him to return. CM will continue to follow.
[2019-02-14] MEDS: traMADol 50 MG TAB 25 MG PO ×2 (10:23→13:07)
[2019-02-14] MEDS: Magnesium Gluconate 500 MG TAB 250 MG PO (10:23)
--- NOTE | 2019-02-14 11:15 | PT.INNT ---
Date of service: 02/14/19 Time of Service: 11:15 PT Notes Visit Reasons: INFLUENZA/ WEAKNESS/ RIB INJURY Patient was seen today for PT evaluation but declined to be seen refused to be assessed as he states he just fell early today and was on his hands and knees for quite a while before EMS came. He reported 8/10 pain on his ribs and his back and did not want to sit up nor stand up because of it. He is exhausted as well. He did say that he may be ready to move tomorrow but would like to rest today. Will plan on evaluating tomorrow morning as ordered. Thank you very much for this referral. Jyoti Curtis PT, DPT, CLT [facility] Inpatient PT at [facility]
[2019-02-14] MEDS: Ondansetron 4 MG/2 ML VIAL IVP (12:31)
[2019-02-14] MEDS: Normal Saline Flush 10 ML SYR IVP (12:31)
[2019-02-14] MEDS: Ibuprofen 400 MG TAB PO (13:07)
--- NOTE | 2019-02-14 13:59 | HPE_ITS ---
Date of service: 02/14/19 Time of Service: 13:59 Assessment and Plan Assessment and plan (1) Influenza A: Status: Acute Assessment and plan: He was found to have influenza a. This could be causing overall weakness and some loss of balance especially when coupled with his underlying Parkinson's. Given his age and comorbidities will start on Tamiflu 75 mg twice daily x5 days. He appears to be compensated from a respiratory point of view. (2) MGUS (monoclonal gammopathy of unknown significance): Status: Chronic Assessment and plan: He has pancytopenia. We will continue to trend his white count. He does not need a transfusion or platelets at this time. 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 Avoiding acetaminophen. Low-dose ibuprofen for fever control and symptom control. (4) Mild cognitive impairment: Status: Acute Assessment and plan: Still able to live independently in his own home. (5) Restless leg syndrome: Status: Acute Assessment and plan: Followed by Dr. Mcmullen. Continue present meds. (6) Diabetes mellitus, insulin dependent (IDDM), controlled: Status: Acute Assessment and plan: Diet controlled. He gets hyperglycemia when on steroids. (7) Parkinsons disease: Status: Chronic Assessment and plan: Appears to be under good control. We will ask ph ysical therapy to see him. (8) Colon cancer: Status: Chronic Assessment and plan: Status post colectomy. This is a remote diagnosis and there is been no evidence of recurrence. (9) Discharge planning issues: Status: Acute Assessment and plan: We talked about CODE STATUS. He was quite clear that if he was terminal he would not want resuscitative efforts. He would like resuscitative efforts if it looks like it is temporary or transient. We will continue to treat treatable causes. DNR/DNI in the event of severe terminal event. History of Present Illness History of Present Illness Chief Complaint: Influenza A/fall with left-sided rib pain Narrative: This is a 78-year-old man with Parkinson's disease that lives alone in his own home. This morning he was getting up to urinate when he fell striking the left rib area on a piece of furniture. There was no loss of consciousness. No trauma to the head. He crawled around on the floor and alert ed EMS. In the emergency room he was febrile and had some crackles in the lower bases. CBC showed pancytopenia. Rapid influenza was positive for influenza a. He was started on Tamiflu and some IV fluids. He is admitted to [facility] for physical therapy, pain control, influenza treatment. Review of Systems Narrative: He has been sick with upper respiratory symptoms for a few days now. He was vaccinated against influenza this fall. He normally ambulates with a walker. He has not had frequent falls recently. He has both a mechanical and electric wheelchair at home. He operates independently for the most part inc luding going out to get groceries. He denies any recent chest pain. No loss of consciousness. No seizure activity. [facility] Medical History (Updated 02/14/19 @ 14:04 by Brandon West MD) Anxiety (Chronic) Cirrhosis of liver (Chronic) On beta blockers; Under care of Dr. Joe. Colon cancer (Chronic) Multiple polypectomies. 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 Liver cirrhosis MGUS (monoclonal gammopathy of unknown significance) (Chronic) Mild cognitive impairment (Acute 08/17/15) HANS (obstructive sleep apnea) Pancytopenia (Chronic) Thought to be secondary to liver cirrhosis and splenic sequestratioin. Please note bone marrow biopsy was negative. Parkinson disease Perirectal abscess (Resolved) Prostate cancer (Chronic 05/24/02) S/P radiation, Lupron, now on Zoladex. Restless leg syndrome (Acute 10/24/16) Streptococcal bacteremia (Resolved) s/p removal of buried central venous access device. no bleeding. no pain. cont care. Tubulovillous adenoma of colon (Resolved 11/21/15) Ventral hernia (Chronic) Visual hallucination (Inactive) Surgical History BONE MARROW BIOPSY (11/25/14) LISSET Colectomy 1992 colonoscopy (11/21/15) H/O ventral hernia repair (Chronic) History of bowel resection (Chronic) History of Leonid fundoplication (Chronic) S/P cholecystectomy (Acute) S/P ear surgery (Acute) Family History Maternal Cousin Colon cancer Maternal Cousin Colon cancer Mother Cervical cancer Social History Smoking/Tobacco Use Status: Former Tobacco Use Quit Date: 06/17/94 Pack-years: 35 Second Hand Exposure: No Alcohol Intake: former Drug use: Never Household members: none Housing: apartment current occupation: Retired Seatbelt use: always Do you feel safe at home: Yes Do you feel safe in your relationship?: Yes Additional Social history: drinks < 1/month Meds Home Medications and Allergies Home Medications Medication Instructions Recorded Confirmed Type pantoprazole 40 mg PO DAILY 11/27/12 02/14/19 History carvedilol 3.125 mg PO BID 05/30/13 02/14/19 History melatonin 10 mg PO HS 08/27/17 02/14/19 History magnesium oxide 250 mg PO DAILY 04/22/18 02/14/19 History carbidopa ER 25 mg-levodopa 100 mg 2 tab PO QID #240 tab 07/21/18 02/14/19 Rx tablet,extended release tramadol 50 mg tablet 25 mg PO DAILY tab 01/26/19 02/14/19 History Allergies Allergy/AdvReac Type Severity Reaction Status Date / Time leuprolide acetate Allergy Severe Swelling/Ed Verified 01/26/19 08:03 [From Lupron] isabelle adhesive Allergy Intermediate Skin Rash Verified 01/26/19 08:03 enalapril [Enalapril] AdvReac Severe Hyperkalemi Verified 01/26/19 08:03 a aspirin AdvReac Intermediate Verified 01/26/19 08:03 esomeprazole magnesium AdvReac Intermediate Diarrhea Verified 01/26/19 08:03 [From Nexium] metformin AdvReac Intermediate Diarrhea Verified 01/26/19 08:03 acetaminophen AdvReac Mild Diarrhea Verified 01/26/19 08:03 Exam Narrative Exam Narrative: On exam he is fully alert and awake and in no apparent distress. His left rib cage is sore but there is no bruising or swelling. His breathing is nonlabored. His lung exam is clear on the right and left. His heart sounds are regular. Abdomen is soft and nontender no HSM is detected. Lower extremities no CCE. Neurologically there are no does not appear to be any focal deficits. He does not have much of a tremor. He can move upper and lower extr emities and follow commands without difficulty. He did not appear to be actively hallucinating. Results Imaging Chest x-ray: report reviewed (There was some slight right lower lobe streaking but was read as normal and without infiltrate) EKG: report reviewed (There was a sinus rhythm and no acute ST to T changes.) Labs Result diagrams: 02/14/19 06:00 02/14/19 06:00 Labs: Laboratory Results - last 24 hr 02/14/19 02/14/19 02/14/19 06:00 06:00 06:00 WBC 1.87 L* RBC 3.58 L Hgb 10.4 L Hct 31.5 L MCV 88.0 MCH 29.1 MCHC 33.0 RDW 15.5 H Plt Count 46 L MPV 11.0 Immature Gran % 0.5 Neutrophils % 75.4 Lymphocytes % 10.2 Monocytes % 12.3 Eosinophils % 1.6 Basophils % 0.0 Absolute Neutrophils 1.41 Absolute Lymphocytes 0.19 L Absolute Monocytes 0.23 Absolute Eosinophils 0.03 Absolute Basophils 0.00 Differential Comment Diff reviewed RBC Morphology See below Poikilocytosis 2+ Sodium 140 Potassium 4.0 Chloride 105 Carbon Dioxide 25.2 Anion Gap 9.8 BUN 9 Creatinine 0.94 Estimated GFR/1.73 m2 >= 60.00 Glucose 155 H Lactate 1.8 H Calcium 7.9 L Total Bilirubin 1.8 H AST 33 ALT 14 L Alkaline Phosphatase 163 H Troponin I < 0.05 Total Protein 6.7 Albumin 3.0 L Urine Color Urine Clarity Urine pH Ur Specific [place] Urine Protein Urine Ketones Urine Blood Urine Nitrite Urine Bilirubin Urine Urobilinogen Ur Leukocyte Esterase Urine RBC Urine WBC Ur Epithelial Cells Urine Crystals Urine Bacteria Urine Casts Urine Mucus Urine Other Ur Culture Indicated? Urine Glucose 02/14/19 07:30 WBC RBC Hgb Hct MCV MCH MCHC RDW Plt Count MPV Immature Gran % Neutrophils % Lymphocytes % Monocytes % Eosinophils % Basophils % Absolute Neutrophils Absolute Lymphocytes Absolute Monocytes Absolute Eosinophils Absolute Basophils Differential Comment RBC Morphology Poikilocytosis Sodium Potassium Chloride Carbon Dioxide Anion Gap BUN Creatinine Estimated GFR/1.73 m2 Glucose Lactate Calcium Total Bilirubin AST ALT Alkaline Phosphatase Troponin I Total Protein Albumin Urine Color Yellow Urine Clarity Clear Urine pH 6.5 Ur Specific [place] 1.025 Urine Protein Trace H Urine Ketones Negative Urine Blood Large H Urine Nitrite Negative Urine Bilirubin Negative Urine Urobilinogen 2.0 H Ur Leukocyte Esterase Negative Urine RBC 20-50 H Urine WBC 0-2 Ur Epithelial Cells Rare Urine Crystals Negative Urine Bacteria Rare Urine Casts Negative Urine Mucus Trace Urine Other Few yeast Ur Culture Indicated? C&s done as ordered Urine Glucose Negative Last Vital Signs Temp 38.3 C H 02/14/19 13:09 Pulse 81 02/14/19 13:09 Resp 28 H 02/14/19 13:09 BP 159/75 H 02/14/19 13:09 Pulse Ox 96 02/14/19 13:09
[2019-02-14] MEDS: Insulin Aspart 300 UNITS/3 ML PEN SC (17:16)
[2019-02-15] VITALS (7 sets, daily range): BP systolic 129–157; BP diastolic 65–72; PULSE 64–76; RESP 15–20; TEMP 36.5–37.6; O2SAT 95–99
[2019-02-15] MEDS: traMADol 50 MG TAB 25 MG PO (00:12)
[2019-02-15] MEDS: Carvedilol 3.125 MG TAB PO ×2 (06:54→17:03)
[2019-02-15 07:59] LABS: Absolute Basophil Count 0.01 k/cumm (0.0-0.2); Absolute Eosinophil Count 0.02 k/cumm (0.0-0.7); Absolute Lymphocyte Count 0.21 k/cumm (1.2-3.4); Absolute Monocyte Count 0.25 k/cumm (0.11-0.7); Absolute Neutrophil Count 1.22 k/cumm (1.2-6.7); Basophils % 0.6; Eosinophils % 1.2; HCT 28.7 % (40.0-50.0); HGB 9.6 g/dL (13.5-17.5); Lymphocytes % 12.3; Mean Corp. HGB Concentration 33.4 g/dL (32.0-36.0); Mean Corpuscular Hemoglobin 29.5 pg (27.0-33.0); Mean Corpuscular Volume 88.3 fL (80-95); Mean Platelet Volume 12.7 fL (8.0-11.0); Monocytes % 14.6; Neutrophils % 71.3; RBC 3.25 m/cumm (4.50-6.00); RBC Distribution Width 15.2 % (11.8-14.1)
[2019-02-15 08:05] LABS: Anion Gap 6.9 mmol/L (3-11); BUN 12 mg/dL (7-18); CO2 26.1 mmol/L (21.0-32.0); CREATININE 0.74 mg/dL (0.70-1.30); Calcium 7.8 mg/dL (8.5-10.1); Chloride 107 mmol/L (98-107); Glucose 120 mg/dL (74-106); Potassium 4.5 mmol/L (3.5-5.1); Sodium 140 mmol/L (136-145)
[2019-02-15 08:28] LABS: White Blood Cell Count 1.71 k/cumm (4.4-10.8)
[2019-02-15 08:29] LABS: Diff Comment Diff Reviewed; Ovalocytes 2+; Platelet Count 35 x1000/uL (130-400)
[2019-02-15] MEDS: Magnesium Gluconate 500 MG TAB 250 MG PO (09:14)
[2019-02-15] MEDS: Pantoprazole 40 MG TABCR PO (09:14)
[2019-02-15] MEDS: Oseltamivir 75 MG CAP PO ×2 (09:15→20:49)
--- NOTE | 2019-02-15 11:42 | CMPROGNOTE_ITS ---
- If Service Date Differs Date of service: 02/15/19 Time of Service: 11:42 Care Management Progress Note S/O: Drake is sitting in a chair watching television when CM comes to meet with him. Drake is pleasant and talkative. He shares how diligent he is about getting the flu shot every year but yet, he's at the hospital with the flu. He states he manages well on his own at home and is independent in his ADLs at baseline. He denies a history of falls and says he fell prior to coming to [facility] due to a fever and cough. CM will continue to follow. A: Drake is a 78 year old male admitted to [facility] on 02/14/2019 for influenza, weakness, and rib injury. P: Drake will be discharged home when medically cleared by provider with resumption of [facility] - moderate needs. CM will coordinate transportation home by [facility] wheelchair van when ready. At the request of the [facility], CM will assist Drake in completing patient assistance forms prior to his discharge from the hospital. CM will continue to support patient and discharge planning needs.
[2019-02-15] MEDS: Insulin Aspart 300 UNITS/3 ML PEN SC ×2 (12:04→17:04)
--- NOTE | 2019-02-15 13:23 | PHARADMIT ---
Addendum entered by Drake Avitia III 02/17/19 13:12: Pharmacy Note Subjective Plan were set for patient to be discharged at 111am today, but patient experienced increased pain and discharge was cancelled. Patient here for rib injury and influenza Objective VS-OK, No Labs, FSBS- 150 Wgt-91.1kg having reg BMs Assessment Tamiflu has 2 days remaining. Received Venofer yesterday Plan No new notes as to type of pain or future disposition. Addendum entered by Emilia Neri 02/16/19 16:18: Pharmacy Note Subjective Objective BP-166/75 other VS okay WBC-1.99(up slightly) BG-152 Assessment iron infusion given today oseltamivir continues through 02/18 blood cultures no growth @ 48 hours Plan potential discharge tomorrow? Original Note: Admission Pharmacy Clinical Review Influenza/weakness/rib injury Code Status DNR/DNI Current Weight 92.5 kg Renally Cleared and Narrow Therapeutic Index Meds Crcl ~76 mL/min current meds okay QTc Value / Action Taken QTc 435 BP Control, Fever BP 157/65 Tmax 37.6 today (was febrile some yesterday too) Electrolytes reviewed within normal limits DVT Prophylaxis none Opiate Usage / Scheduled Bowel Regimen Ordered no/prn Plt/SCr for Heparin / Enoxaparin plt 35 SCr 0.74 INR for Warfarin n/a H/H stable, WBC/Bands h/h 9.6/28.7 wbc 1.71 Antibiotic appropriateness none Cultures and Sensitivities blood cultures no growth @ 24 hours urine culture gram+ edwina; possible contaminated culture rapid flu positive for flu a- currently on oseltamivir Surgical ABX d/c within 24 hr n/a DM control / Insulin Dosing BG 120 sliding scale aspart Heart Failure (Check EF%) (NUBIA's, B-Block, Diuretics) none IV to PO Switch n/a Home Meds Reviewed yes Home Meds Not Ordered magnesium oxide (has mag gluconate ordered) Comments pt due for iron infusion tomorrow per morning report
--- NOTE | 2019-02-15 14:37 | IN_ITS ---
Date of service: 02/15/19 Time of Service: 14:37 PT Notes Visit Reasons: INFLUENZA/ WEAKNESS/ RIB INJURY Physical Therapy Inpatient Initial Evaluation Date: 02/15/2019 Referring Doctor: Brandon West MD PT Orders: PT CONSULT: Exacerbation of chronic condition. Parkinson's. Precautions: Fall. Droplet precautions. Activity as tolerated. Patient Profile/Admitting Diagnosis: Patient is a 78-year-old male with past medical history significant for Parkinson's disease and monoclonal gammopathy of unknown significance who presented to the ED on 02/14/2019 due to a fall the previous night hitting his ribs on the left side and with cough (that started 2 days prior to admission) as well as fever. Patient is diagnosed to be positive for influenza A, mild cognitive impairment, restless leg syndrome, and diabetes mellitus. Referral for physical therapy was sent to address functional mobility decline, strength deficits, and balance impairment in anticipation of return to [facility] when medically cleared to do so. PMHX: Medical History (Updated 02/14/19 @ 14:04 by Brandon West MD) Anxiety (Chronic) Cirrhosis of liver (Chronic) On beta blockers; Under care of Dr. Joe. Colon cancer (Chronic) Multiple polypectomies. 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 Liver cirrhosis MGUS (monoclonal gammopathy of unknown significance) (Chronic) Mild cognitive impairment (Acute 08/17/15) HANS (obstructive sleep apnea) Pancytopenia (Chronic) Thought to be secondary to liver cirrhosis and splenic sequestratioin. Please note bone marrow biopsy was negative. Parkinson disease Perirectal abscess (Resolved) Prostate cancer (Chronic 05/24/02) S/P radiation, Lupron, now on Zoladex. Restless leg syndrome (Acute 10/24/16) Streptococcal bacteremia (Resolved) s/p removal of buried central venous access device. no bleeding. no pain. cont care. Tubulovillous adenoma of colon (Resolved 11/21/15) Ventral hernia (Chronic) Visual hallucination (Inactive) Surgical History BONE MARROW BIOPSY (11/25/14) LISSET Colectomy 1993 colonoscopy (11/21/15) H/O ventral hernia repair (Chronic) History of bowel resection (Chronic) History of Leonid fundoplication (Chronic) S/P cholecystectomy (Acute) S/P ear surgery (Acute) Social History/Home Situation: Patient is a resident of the [facility] and occupy his room on the first floor. Patient performs community mobility using his Hoveround or his electric scooter. Patient states that he is able to negotiate the ramp to the entrance of the [facility] emergency [facility] house and gets to the first floor via the elevator. He is able to do his grocery shopping via [facility] and has been managing his own meals, has been independent with bathing and dressing and reports that his been able to do short distance ambulation using no assistive device but holding onto calvillo and furniture inside his apartment. He has a home health aide comes in to help with char belt operator as well as laundry. Equipment Owned/DME: Hoveround, electric scooter, regular wheelchair, 4 wheeled walker, front wheeled walker, raised toilet seat, shower chair, CPAP machine Subjective: Patient reports feeling a lot better than he did when he came in yesterday morning. He continues to feel pain on his left ribs but now of lesser intensity. He denies headache, dizziness, chest pain throughout PT session. Objective: General Observation: Patient seen sitting on chair. IV access remains open on the right UE. Bilateral TEDS on. Fentanyl patch on left lateral trunk. Mental Status: Alert and oriented x4 Pain: Reports mild pain on the left ribs ROM: Right Upper Extremity: Shoulder Flexion WFL. Shoulder abduction WFL. Elbow flexion WFL. Wrist flexion WFL. Opening and closing of hand WFL. Left Upper Extremity: Shoulder Flexion WFL. Shoulder abduction WFL. Elbow flexion WFL. Wrist flexion WFL. Opening and closing of hand WFL. Right Lower Extremity: Hip flexion WFL. Hip abduction WFL. Knee flexion WFL. Ankle dorsiflexion WFL. Ankle plantarflexion WFL. Left Lower Extremity: Hip flexion WFL. Hip abduction WFL. Knee flexion WFL. Ankle dorsiflexion WFL. Ankle plantarflexion WFL. Strength: Right Upper Extremity: Shoulder flexors 4/5. Shoulder abductors 4/5. Elbow flexors 5/5. Elbow extensors 5/5. Email Campaign Specialist strong. Left Upper Extremity: Shoulder flexors 4/5. Shoulder abductors 4/5. Elbow flexors 5/5. Elbow extensors 5/5. Email Campaign Specialist strong. Right Lower Extremity: Hip flexors 4/5. Hip abductors 5/5. Knee flexors 4/5. Knee extensors 5/5. Ankle dorsiflexors 4/5. Ankle plantarflexors 5/5. Left Lower Extremity:Hip flexors 4/5. Hip abductors 5/5. Knee flexors 4/5. Knee extensors 5/5. Ankle dorsiflexors 4/5. Ankle plantarflexors 5/5. Sensation: Intact as to pain and pressure on bilateral lower extremities. Bed Mobility/Transfers: Sit to stand CGA Stand to sit CGA Bed to chair CGA Chair to bed CGA Gait: Patient tolerated level surface ambulation inside room for 25 feet using front wheeled walker with FWB and with only CGA of this PT. Parkinsonian tremor that is mild was observed with ambulation. Decreased step height and length is seen. No LOB observed. Balance: Static Sitting: Normal Dynamic Sitting: Normal Static Standing: Fair Dynamic Standing: Fair Special Tests: Mobility Limitations Standardized Measure [facility] 6 clicks Basic Mobility Inpatient Short Form: Raw Score: 18 CMS Score: 47% deficit Informed Consent/Education: Patient instructed in purpose of PT consult and plan of care. Assessment: Patient is a 78-year-old male with past medical history significant for Parkinson's disease and monoclonal gammopathy of unknown significance who presented to the ED on 02/14/2019 due to a fall the previous night hitting his ribs on the left side and with cough that started 2 days prior to admission as well as fever. Patient is diagnosed to be positive for influenza A, mild cognitive impairment, restless leg syndrome, and diabetes mellitus now presenting with impairment level findings and functional limitations as listed below that resolved to a [facility] deficit score of 47% requiring skilled physical therapy services at this time. Patient presents with clinical signs and symptoms consistent with current/admitting diagnoses that have resulted to mobility limitations, gait instability, generalized weakness, and impairment of motor control as demonstrated by the following impairment level findings: 1. Decreased strength to B hip and knee major muscle groups 2. Impaired sitting/standing balance 3. Impaired activity tolerance Impairments are contributing to the following functional limitations: 1. Inability to safely ambulate without assistive device and physical assistance 2. Increase completion time for mobility ADL performance 3. Increased fall risk 4. Inability to negotiate steps alone safely Patient is assessed as a 34249 moderate complexity based on the following: History: 78-year-old male with past medical history of monoclonal gammopathy of unknown significance and Parkinson's disease with impairment level findings, functional limitations, and [place] [facility] deficit score as listed above Examination: Demonstrable impairment in strength, balance, and range of motion with underlying impairments and functional limitations as documented above Presentation: Evolving Decision Makin moderate complexity Goals: Goals X1 week 1. Supine-Sit independent 2. Sit-Supine independent 3. Sit-Stand independent 4. Stand-Sit independent 5. Bed-Chair independent 6. Chair-Bed independent 7. Independent gait on level surface with use of least restrictive device for at least 200 feet without report of pain nor dyspnea 8. Independent with home exercise program 9. Good static and dynamic standing balance/tolerance Plan of Care/Treatment Plan: 1-2x/day, 7 days/week x 1 week. Plan of care has been reviewed with the REAMING MACHINE TENDER providing the service under Physical Therapy direction. Initiate Physical Therapy intervention for strengthening, bed mobility, transfers, gait, stairs, balance training, use of assistive device. DISCHARGE RECOMMENDATIONS: Patient will benefit from home health PT services in order to progress mobility level using least restrictive assistive ambulatory device, assess home safety, identify additional equipment needs, and establish a functional maintenance program that will increase ability of patient to remain at home. TREATMENT CODE/TIME: 83104 x 30 minutes beginning at 13:45 PM. Thank you very much for this referral. Jyoti Curtis PT, DPT, CLT [facility] [place], [place]
--- NOTE | 2019-02-15 19:48 | W.PM.PROGNOT ---
Date of Service Date of service: 02/15/19 Time of Service: 19:48 Assessment and Plan Assessment and plan (1) Influenza A: Status: Acute Assessment and plan: Continue on the Tamiflu to complete a 5-day course. His story status is overall stable. 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 He has a drop in his white count and platelet count. Continue to trend his CBC. (3) Iron deficiency: Status: Chronic Assessment and plan: He is due for an iron infusion tomorrow. (4) Parkinsons disease: Status: Chronic Assessment and plan: His Parkinson's disease is stable. He is capable of working with physical therapy. Continue present meds. Subjective Subjective Interval history since last seen: Drake is in good spirits today. He greets me appropriately. He is aware of the weather. He is asking to have the SIMONE hose removed. He still having some left-sided chest wall tenderness. It does not appear to be affecting his breathing. He has a mild cough but no real dyspnea. Exam Narrative Exam Narrative: On exam he is in no significant distress. He is lying nearly flat in bed without any respiratory difficulty. His lungs are generally clear on the right and left. He has no bruising or outward sign of deformity on the left rib cage. His heart sounds are regular. His abdomen overall soft and nontender. SIMONE hose were removed bilaterally and his lower extremities showed no edema, overall well perfused. Objective Objective Clinical Data: Abnormal lab results 02/15/19 02/15/19 Range/Units 07:18 07:18 WBC 1.71 L* (4.4-10.8) k/cumm RBC 3.25 L (4.50-6.00) m/cumm Hgb 9.6 L (13.5-17.5) g/dL Hct 28.7 L (40.0-50.0) % RDW 15.2 H (11.8-14.1) % Plt Count 35 L (130-400) x1000/uL MPV 12.7 H (8.0-11.0) fL Absolute Lymphocytes 0.21 L (1.2-3.4) k/cumm Glucose 120 H (74-106) mg/dL Calcium 7.8 L (8.5-10.1) mg/dL Vital Signs Temperature 37.2 C 02/15/19 19:44 Temperature Source Tympanic 02/15/19 19:44 Pulse 71 02/15/19 19:44 Pulse Rhythm Regular 02/15/19 06:30 Respiratory Rate 19 02/15/19 19:44 Respiratory Effort 02/15/19 17:31 Respiratory Depth Shallow 02/15/19 17:31 Respiratory Pattern Normal 02/15/19 17:31 Blood Pressure 152/71 H 02/15/19 19:44 Blood Pressure Mean 96 02/14/19 08:01 Blood Pressure Position Supine 02/14/19 05:28 Pulse Oximetry 97 02/15/19 19:44 Oxygen Delivery Method Room Air 02/15/19 19:44 Oxygen Flow Rate 0 02/15/19 19:44 Pain Level 0 02/15/19 15:57 Comment 02/14/19 19:50 Intake & Output 02/14/19 02/15/19 02/15/19 23:59 11:59 23:59 Intake Total 120 / 540 420 / 540 Output Total 500 / 600 200 / 350 150 / 350 Balance -500 / 300 -80 / 190 270 / 190 Weight 92.5 kg Intake: Oral 120 / 540 420 / 540 Output: Urine 500 / 600 200 / 350 150 / 350 Other: Urine Color Dark Vi Dark Vi Dark Vi Urine Appearance Clear Clear Clear Urine Odor Strong Strong Stool Size Small Stool Characteristics Soft Voiding Methods Urinal Urinal Urinal Laboratory Results WBC 1.71 k/cumm (4.4-10.8) L* 02/15/19 07:18 RBC 3.25 m/cumm (4.50-6.00) L 02/15/19 07:18 Hgb 9.6 g/dL (13.5-17.5) L 02/15/19 07:18 Hct 28.7 % (40.0-50.0) L 02/15/19 07:18 MCV 88.3 fL (80-95) 02/15/19 07:18 MCH 29.5 pg (27.0-33.0) 02/15/19 07:18 MCHC 33.4 g/dL (32.0-36.0) 02/15/19 07:18 RDW 15.2 % (11.8-14.1) H 02/15/19 07:18 Plt Count 35 x1000/uL (130-400) L 02/15/19 07:18 MPV 12.7 fL (8.0-11.0) H 02/15/19 07:18 Immature Gran % 0.0 02/15/19 07:18 Neutrophils % 71.3 02/15/19 07:18 Lymphocytes % 12.3 02/15/19 07:18 Monocytes % 14.6 02/15/19 07:18 Eosinophils % 1.2 02/15/19 07:18 Basophils % 0.6 02/15/19 07:18 Absolute Neutrophils 1.22 k/cumm (1.2-6.7) 02/15/19 07:18 Absolute Lymphocytes 0.21 k/cumm (1.2-3.4) L 02/15/19 07:18 Absolute Monocytes 0.25 k/cumm (0.11-0.7) 02/15/19 07:18 Absolute Eosinophils 0.02 k/cumm (0.0-0.7) 02/15/19 07:18 Absolute Basophils 0.01 k/cumm (0.0-0.2) 02/15/19 07:18 Differential Comment Diff reviewed 02/15/19 07:18 RBC Morphology See below 02/15/19 07:18 Poikilocytosis 2+ 02/14/19 06:00 Ovalocytes 2+ 02/15/19 07:18 Sodium 140 mmol/L (136-145) 02/15/19 07:18 Potassium 4.5 mmol/L (3.5-5.1) 02/15/19 07:18 Chloride 107 mmol/L (98-107) 02/15/19 07:18 Carbon Dioxide 26.1 mmol/L (21.0-32.0) 02/15/19 07:18 Anion Gap 6.9 mmol/L (3-11) 02/15/19 07:18 BUN 12 mg/dL (7-18) 02/15/19 07:18 Creatinine 0.74 mg/dL (0.70-1.30) 02/15/19 07:18 Estimated GFR/1.73 m2 >= 60.00 (mL/min/1.73m2) 02/15/19 07:18 Glucose 120 mg/dL (74-106) H 02/15/19 07:18 Lactate 1.8 mmol/L (0.6-1.4) H 02/14/19 06:00 Calcium 7.8 mg/dL (8.5-10.1) L 02/15/19 07:18 Total Bilirubin 1.8 mg/dL (0.2-1.0) H 02/14/19 06:00 AST 33 U/L (15-37) 02/14/19 06:00 ALT 14 U/L (16-63) L 02/14/19 06:00 Alkaline Phosphatase 163 U/L (46-116) H 02/14/19 06:00 Troponin I < 0.05 ng/Ml (<0.06) 02/14/19 06:00 Total Protein 6.7 g/dL (6.4-8.2) 02/14/19 06:00 Albumin 3.0 g/dL (3.4-5.0) L 02/14/19 06:00 Urine Color Yellow (Yellow) 02/14/19 07:30 Urine Clarity Clear (Clear) 02/14/19 07:30 Urine pH 6.5 (5-8) 02/14/19 07:30 Ur Specific [place] 1.025 (1.005-1.025) 02/14/19 07:30 Urine Protein Trace mg/dL (Negative) H 02/14/19 07:30 Urine Ketones Negative mg/dL (Negative) 02/14/19 07:30 Urine Blood Large (Negative) H 02/14/19 07:30 Urine Nitrite Negative (Negative) 02/14/19 07:30 Urine Bilirubin Negative (Negative) 02/14/19 07:30 Urine Urobilinogen 2.0 EU/dL (Up TO 0.2) H 02/14/19 07:30 Ur Leukocyte Esterase Negative (Negative) 02/14/19 07:30 Urine RBC 20-50 HPF (0-2) H 02/14/19 07:30 Urine WBC 0-2 HPF (0-5) 02/14/19 07:30 Ur Epithelial Cells Rare HPF (Negative) 02/14/19 07:30 Urine Crystals Negative HPF (Negative) 02/14/19 07:30 Urine Bacteria Rare HPF (Negative) 02/14/19 07:30 Urine Casts Negative LPF (Negative) 02/14/19 07:30 Urine Mucus Trace (Negative) 02/14/19 07:30 Urine Other Few yeast (Negative) 02/14/19 07:30 Ur Culture Indicated? C&s done as ordered 02/14/19 07:30 Urine Glucose Negative mg/dL (Negative) 02/14/19 07:30
[2019-02-16] VITALS (8 sets, daily range): BP systolic 128–166; BP diastolic 70–79; PULSE 62–73; RESP 9–20; TEMP 35.6–37.1; O2SAT 96–99
[2019-02-16] MEDS: Carvedilol 3.125 MG TAB PO ×2 (06:37→16:19)
[2019-02-16 07:22] LABS: Abs Immature Grans 0.01 k/cumm (0.0-0.09); Absolute Eosinophil Count 0.08 k/cumm (0.0-0.7); Absolute Lymphocyte Count 0.28 k/cumm (1.2-3.4); Absolute Neutrophil Count 1.42 k/cumm (1.2-6.7); HCT 29.5 % (40.0-50.0); HGB 9.9 g/dL (13.5-17.5); Immature Grans % 0.5; Lymphocytes % 14.1; Mean Corp. HGB Concentration 33.6 g/dL (32.0-36.0); Mean Corpuscular Hemoglobin 29.7 pg (27.0-33.0); Mean Corpuscular Volume 88.6 fL (80-95); Mean Platelet Volume 10.2 fL (8.0-11.0); Monocytes % 10.1; Neutrophils % 71.3; RBC 3.33 m/cumm (4.50-6.00); RBC Distribution Width 15.3 % (11.8-14.1)
[2019-02-16 07:33] LABS: Anion Gap 6.5 mmol/L (3-11); BUN 14 mg/dL (7-18); CO2 25.5 mmol/L (21.0-32.0); CREATININE 0.82 mg/dL (0.70-1.30); Chloride 106 mmol/L (98-107); Glucose 152 mg/dL (74-106); Potassium 4.5 mmol/L (3.5-5.1); Sodium 138 mmol/L (136-145)
[2019-02-16 07:45] LABS: White Blood Cell Count 1.99 k/cumm (4.4-10.8)
[2019-02-16 07:46] LABS: Anisocytosis 1+; Diff Comment Diff Reviewed; Ovalocytes 2+; Platelet Count 38 x1000/uL (130-400)
[2019-02-16] MEDS: traMADol 50 MG TAB 25 MG PO ×2 (08:19→16:32)
[2019-02-16] MEDS: Oseltamivir 75 MG CAP PO ×2 (08:19→20:46)
[2019-02-16] MEDS: Insulin Aspart 300 UNITS/3 ML PEN SC ×3 (08:20→17:25)
--- NOTE | 2019-02-16 10:54 | W.NUTCONSULT ---
Date of service: 02/16/19 Time of Service: 10:54 Nutritional Consult ASSESSMENT: 78 year old male admitted with Influenza A. PMH: IDDM, colon CA, cirrohsis of liver. BMI indicates class 1 obesity but baseline for Drake. Following CHO diet with adequate blood sugar control and meeting nutrient and fluid needs. Not considered at nutritional risk at this time. MONITORING AND EVALUATION: po intake, weight and blood sugar trends Time Spent in Nutritional Counseling and Treatment: 15 min spent face to face
[2019-02-16] MEDS: IRON SUCROSE COMPLEX 200 MG in Normal Saline 100 ML 400 MG IVPB (12:31)
[2019-02-16] MEDS: Magnesium Gluconate 500 MG TAB 250 MG PO (16:19)
--- NOTE | 2019-02-16 17:05 | PGE_ITS ---
Date of Service Date of service: 02/16/19 Time of Service: 11:30 Assessment and Plan Assessment and plan (1) Influenza A: Status: Acute Assessment and plan: Continue on the Tamiflu to complete a 5-day course. He has not been febrile and has no respiratory symptoms now. 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 He received Venofer infusion today. (3) Iron deficiency: Status: Chronic Assessment and plan: Iron infusion today. (4) Parkinsons disease: Status: Chronic Assessment and plan: His Parkinson's disease is stable. He is capable of working with physical therapy. Continue present meds. (5) Diabetes mellitus, insulin dependent (IDDM), controlled: Status: Acute Assessment and plan: Monitoring blood sugar on diabetic diet and short acting insulin coverage. Had been doing well at home with diet alone. (6) HTN (hypertension): Status: None Assessment and plan: Blood pressure acceptable on carvedilol at current dose. He has had a single high reading that I do not think necessitates a dose change. (7) Rib contusion: Status: Acute Assessment and plan: Comfortable at rest. Symptom treatment with acetaminophen as needed. Subjective Subjective Interval history since last seen: Feeling better. No cough. No fever. When he fell he jammed his right thumb, lifting the thumbnail off slightly. Compression with tape seems to help. Bruised ribs ball warper tender but he is able to lie down in bed. He still has most discomfort when he tries to sit up. Getting up out of bed is the most problematic for him now. He is comfortable sitting in a chair and walking. No dysuria. No nausea or vomiting. No chest or abdominal pains beyond his rib discomfort. Exam Narrative Exam Narrative: Comfortable seated. Talkative. Afebrile, blood pressure 166/75 this afternoon. SaO2 on room air 97%. No JVD. Lungs good aeration I do not hear any crackles or wheezing anywhere. Regular heart rhythm without murmur S3 or S4. Nontender abdomen. He has tape over his right thumbnail, no bleeding or tenderness present now. No swelling. No ankle edema. He has been working with PT for transfers. He does have some bruising and tenderness over the left mid ribs in the posterior axillary line. No crepitus. Objective Objective Clinical Data: Abnormal lab results 02/16/19 02/16/19 Range/Units 06:49 06:49 WBC 1.99 L* (4.4-10.8) k/cumm RBC 3.33 L (4.50-6.00) m/cumm Hgb 9.9 L (13.5-17.5) g/dL Hct 29.5 L (40.0-50.0) % RDW 15.3 H (11.8-14.1) % Plt Count 38 L (130-400) x1000/uL Absolute Lymphocytes 0.28 L (1.2-3.4) k/cumm Glucose 152 H (74-106) mg/dL Calcium 8.0 L (8.5-10.1) mg/dL Vital Signs Temperature 35.7 C L 02/16/19 16:00 Temperature Source Tympanic 02/16/19 16:00 Pulse 64 02/16/19 16:00 Pulse Rhythm Regular 02/16/19 08:30 Respiratory Rate 19 02/16/19 16:00 Respiratory Effort Non-Labored 02/16/19 08:30 Respiratory Depth Normal 02/16/19 08:30 Respiratory Pattern Normal 02/16/19 08:30 Blood Pressure 166/75 H 02/16/19 16:00 Blood Pressure Mean 96 02/14/19 08:01 Blood Pressure Position Supine 02/14/19 05:28 Pulse Oximetry 97 02/16/19 16:00 Oxygen Delivery Method Room Air 02/16/19 16:00 Oxygen Flow Rate 0 02/16/19 16:00 Fraction of Inspired Oxygen (FIO2) 21 02/16/19 09:57 Pain Level 7 02/16/19 16:33 Comment 02/16/19 11:40 Intake & Output 02/15/19 02/16/19 02/16/19 23:59 11:59 23:59 Intake Total 420 / 540 240 / 240 Output Total 250 / 450 850 / 850 Balance 170 / 90 -610 / -610 Weight 92.3 kg Intake: Oral 420 / 540 240 / 240 Output: Urine 250 / 450 850 / 850 Other: Urine Color Dark Vi Yellow Yellow Urine Appearance Clear Clear Clear Urine Odor None Normal Comment voiding Q1H in urinal, about 100cc each time throughout shift. Stool Size Small Moderate Stool Characteristics Soft Formed Brown Voiding Methods Urinal Urinal Toilet Laboratory Results WBC 1.99 k/cumm (4.4-10.8) L* 02/16/19 06:49 RBC 3.33 m/cumm (4.50-6.00) L 02/16/19 06:49 Hgb 9.9 g/dL (13.5-17.5) L 02/16/19 06:49 Hct 29.5 % (40.0-50.0) L 02/16/19 06:49 MCV 88.6 fL (80-95) 02/16/19 06:49 MCH 29.7 pg (27.0-33.0) 02/16/19 06:49 MCHC 33.6 g/dL (32.0-36.0) 02/16/19 06:49 RDW 15.3 % (11.8-14.1) H 02/16/19 06:49 Plt Count 38 x1000/uL (130-400) L 02/16/19 06:49 MPV 10.2 fL (8.0-11.0) 02/16/19 06:49 Immature Gran % 0.5 02/16/19 06:49 Neutrophils % 71.3 02/16/19 06:49 Lymphocytes % 14.1 02/16/19 06:49 Monocytes % 10.1 02/16/19 06:49 Eosinophils % 4.0 02/16/19 06:49 Basophils % 0.0 02/16/19 06:49 Absolute Neutrophils 1.42 k/cumm (1.2-6.7) 02/16/19 06:49 Absolute Lymphocytes 0.28 k/cumm (1.2-3.4) L 02/16/19 06:49 Absolute Monocytes 0.20 k/cumm (0.11-0.7) 02/16/19 06:49 Absolute Eosinophils 0.08 k/cumm (0.0-0.7) 02/16/19 06:49 Absolute Basophils 0.00 k/cumm (0.0-0.2) 02/16/19 06:49 Differential Comment Diff reviewed 02/16/19 06:49 RBC Morphology See below 02/16/19 06:49 Poikilocytosis 2+ 02/14/19 06:00 Anisocytosis 1+ 02/16/19 06:49 Ovalocytes 2+ 02/16/19 06:49 Sodium 138 mmol/L (136-145) 02/16/19 06:49 Potassium 4.5 mmol/L (3.5-5.1) 02/16/19 06:49 Chloride 106 mmol/L (98-107) 02/16/19 06:49 Carbon Dioxide 25.5 mmol/L (21.0-32.0) 02/16/19 06:49 Anion Gap 6.5 mmol/L (3-11) 02/16/19 06:49 BUN 14 mg/dL (7-18) 02/16/19 06:49 Creatinine 0.82 mg/dL (0.70-1.30) 02/16/19 06:49 Estimated GFR/1.73 m2 >= 60.00 (mL/min/1.73m2) 02/16/19 06:49 Glucose 152 mg/dL (74-106) H 02/16/19 06:49 Lactate 1.8 mmol/L (0.6-1.4) H 02/14/19 06:00 Calcium 8.0 mg/dL (8.5-10.1) L 02/16/19 06:49 Total Bilirubin 1.8 mg/dL (0.2-1.0) H 02/14/19 06:00 AST 33 U/L (15-37) 02/14/19 06:00 ALT 14 U/L (16-63) L 02/14/19 06:00 Alkaline Phosphatase 163 U/L (46-116) H 02/14/19 06:00 Troponin I < 0.05 ng/Ml (<0.06) 02/14/19 06:00 Total Protein 6.7 g/dL (6.4-8.2) 02/14/19 06:00 Albumin 3.0 g/dL (3.4-5.0) L 02/14/19 06:00 Urine Color Yellow (Yellow) 02/14/19 07:30 Urine Clarity Clear (Clear) 02/14/19 07:30 Urine pH 6.5 (5-8) 02/14/19 07:30 Ur Specific [place] 1.025 (1.005-1.025) 02/14/19 07:30 Urine Protein Trace mg/dL (Negative) H 02/14/19 07:30 Urine Ketones Negative mg/dL (Negative) 02/14/19 07:30 Urine Blood Large (Negative) H 02/14/19 07:30 Urine Nitrite Negative (Negative) 02/14/19 07:30 Urine Bilirubin Negative (Negative) 02/14/19 07:30 Urine Urobilinogen 2.0 EU/dL (Up TO 0.2) H 02/14/19 07:30 Ur Leukocyte Esterase Negative (Negative) 02/14/19 07:30 Urine RBC 20-50 HPF (0-2) H 02/14/19 07:30 Urine WBC 0-2 HPF (0-5) 02/14/19 07:30 Ur Epithelial Cells Rare HPF (Negative) 02/14/19 07:30 Urine Crystals Negative HPF (Negative) 02/14/19 07:30 Urine Bacteria Rare HPF (Negative) 02/14/19 07:30 Urine Casts Negative LPF (Negative) 02/14/19 07:30 Urine Mucus Trace (Negative) 02/14/19 07:30 Urine Other Few yeast (Negative) 02/14/19 07:30 Ur Culture Indicated? C&s done as ordered 02/14/19 07:30 Urine Glucose Negative mg/dL (Negative) 02/14/19 07:30
--- NOTE | 2019-02-16 17:34 | PDOC.CMPRO ---
- If Service Date Differs Date of service: 02/16/19 Time of Service: 17:34 Care Management Progress Note S/O: Drake is sitting in a chair watching television when CM comes to meet with him. He is in good spirits and easily engages in conversation. CM assists him in completing as much of the [facility] patient assistance form as possible. Drake advises that his counseling case manager, Stacie, of [place] [facility] has his financial information and says he will be able to finish filling out the form with her assistance. Drake states he is feeling better and is saddened by his inability to go to [facility] this evening. He, however, shares concerns over returning home too soon as he is having difficulty getting out of bed in the morning due to the rib injury he suffered in the fall at home. CM will continue to follow. A: Drake is a 78 year old male admitted to [facility] on 02/14/2019 for influenza, weakness and rib injury. P: Drake will return home when medically stable with resumption of [facility] - moderate need. CM has coordinated transport via [facility] wheelchair van for tomorrow morning at 11:00 am, as he is expected to discharge home at that time. CM will continue to follow.
[2019-02-16] MEDS: Normal Saline Flush 10 ML SYR IVP (20:54)
[2019-02-16] MEDS: Ibuprofen 400 MG TAB PO (20:55)
[2019-02-17] VITALS (8 sets, daily range): BP systolic 129–162; BP diastolic 70–77; PULSE 65–73; RESP 9–19; TEMP 36.7–37.1; O2SAT 96–100
[2019-02-17] MEDS: Carvedilol 3.125 MG TAB PO ×2 (05:57→17:11)
--- NOTE | 2019-02-17 09:06 | PDOC.CMDIS ---
Care Management Discharge Reason for Hospitalization: Influenza Patient/Family Education Needs: Review discharge instructions Services Needed at Discharge: Home Health Care Services (Resume [facility] Echocardiographer: Stacie )
[2019-02-17] MEDS: Pantoprazole 40 MG TABCR PO (09:25)
[2019-02-17] MEDS: Oseltamivir 75 MG CAP PO ×2 (09:26→20:49)
--- NOTE | 2019-02-17 11:46 | PT.INTREAT ---
Date of service: 02/17/19 Time of Service: 11:46 PT Notes Visit Reasons: INFLUENZA/ WEAKNESS/ RIB INJURY Inpatient Physical Therapy Treatment Note [facility] Date: 02/17/2019 PRECAUTIONS: Fall, droplet SUBJECTIVE: Drake reports that he is feeling a little better, although expresses concern regarding going home, as he feels he is struggling with bed mobility and transfers at this time. OBJECTIVE: PAIN: Patient c/o L sided rib pain with bed mobility BED MOBILITY/TRANSFERS Supine-sit: I with HOB flat Sit?supine: SBA with HOB flat requiring cueing for technique Sit-stand: I Stand-sit: I GAIT Assistive Device: FWW Weight bearing: Full Assist: S Distance: 90' ASSESSMENT: Patient tolerated session well, with c/o L sided rib pain with bed mobility. He was able to tolerate a progression in gait distance with FWW support and supervision. Patient would benefit from continued bed mobility training for improved ability to perform this daily functional task at a more independent level. PLAN: Continue with PT's POC TREATMENT CODE/TIME: 30 minutes; [id number] x2
[2019-02-17] MEDS: traMADol 50 MG TAB 25 MG PO (12:05)
[2019-02-17] MEDS: Insulin Aspart 300 UNITS/3 ML PEN SC ×2 (12:06→17:11)
--- NOTE | 2019-02-17 12:44 | PDOC.CMPRO ---
Care Management Progress Note S/O: Due to increased pain, Drake's discharge was cancelled for today per MD. CM will continue to follow. A: Drake is a 78 year old male admitted to [facility] on 02/14/2019 for influenza, weakness and rib injury. P: Drake will return home when medically stable with resumption of [facility] moderate need. Drake will transport via [facility] wheelchair van upon discharge; coordinated by care management. CM continues to follow.
--- NOTE | 2019-02-17 13:34 | W.INDIABCONS ---
Date of service: 02/17/19 Time of Service: 13:35 Diabetes Inpatient Consult DESCRIPTION/ASSESSMENT: Appreciate diabetes consult for Mr. Hester who is hospitalized with influenza A. Mr. Hester is well known to us from outpatient self management. Formerly on multiple insulin dosing daily now off all diabetes medication and with A1c 7.; GFR 60; BMI 30 Blood sugars mostly less than 180mg/dl with one outlier at 232mg/dl taking moderate insulin correction. Given his age, his self management knowledge and attention, no intervention suggested at this time. PLAN: Will follow blood sugars and f/u with him as needed. Time Spent in Nutritional Counseling and Treatment: 0 minutes face to face
--- NOTE | 2019-02-17 14:33 | PGE_ITS ---
Date of Service Date of service: 02/17/19 Time of Service: 11:33 Assessment and Plan Assessment and plan (1) Rib contusion: Status: Acute Assessment and plan: Possible rib fracture. I think it is academic to get x-rays to prove or disprove a fractured rib as management will not change. Pain with transitions from supine to seated and reverse still problematic, unable to do this unassisted and hence I think it is too soon to try discharging him home. Hopefully another day and his pain will be better. Continue with PT. He is unimpressed that either ibuprofen or tramadol have made much difference with his pain. I am reluctant to try a different opiate or higher dose NSAID given his comorbidities. Time will make this better. (2) Influenza A: Status: Acute Assessment and plan: He remains afebrile with minimal cough. Continue Tamiflu. (3) HTN (hypertension): Status: None Assessment and plan: Blood pressures acceptable with current carvedilol d osing. (4) Parkinson disease: Status: None Assessment and plan: Stable on current carbidopa/levodopa regimen. (5) Discharge planning issues: Status: Acute Assessment and plan: Plan on returning home when medically stable. (6) Diabetes mellitus, insulin dependent (IDDM), controlled: Status: Acute Assessment and plan: Blood sugars up and down. Was not on any medications for his diabetes as an outpatient. Continue use of aspart while hospitalized to avoid significant hyperglycemia while trying to avoid any hypoglycemia. Subjective Subjective Interval history since last seen: Chest remains very uncomfortable with position changes. He is unable to get up and out of bed on his own because of his left chest wall pain where he fell and struck his chest. No increased cough or shortness of breath. No pleuritic chest pain. No sputum production or hemoptysis. SaO2 remains quite good on room air. No falls while he has been in the hospital. Uneventful Venna for infusion yesterday. Blood sugars 120s fasting this morning. Exam Narrative Exam Narrative: He is in no respiratory distress in bed. He is unable to sit up on his own, requires assistance secondary to chest wall pain. Temperature 36.7. Blood pressure 146/77, pulse 69 SaO2 99% on room air. No JVD. Lungs have scattered faint crackles at the left base. There is bruising left chest wall in the posterior axillary line with tenderness to palpation from the axilla to the anterior chest. No crepitus. Abdomen is soft with active bowel sounds. No tenderness to palpation of the abdomen. He has no edema in the lower extremities. Objective Objective Clinical Data: Vital Signs Temperature 36.7 C 02/17/19 11:47 Temperature Source Temporal Artery Scan 02/17/19 11:47 Pulse 69 02/17/19 11:47 Pulse Rhythm Regular 02/17/19 12:34 Respiratory Rate 19 02/17/19 07:45 Respiratory Effort 02/17/19 12:34 Respiratory Depth Normal 02/17/19 12:34 Respiratory Pattern Normal 02/17/19 12:34 Blood Pressure 146/77 H 02/17/19 11:47 Blood Pressure Mean 96 02/14/19 08:01 Blood Pressure Position Supine 02/14/19 05:28 Pulse Oximetry 99 02/17/19 11:47 Oxygen Delivery Method Room Air 02/17/19 11:47 Oxygen Flow Rate 0 02/17/19 11:47 Fraction of Inspired Oxygen (FIO2) 21 02/16/19 09:57 Pain Level 7 02/17/19 12:05 Comment 02/16/19 11:40 Intake & Output 02/16/19 02/17/19 02/17/19 23:59 11:59 23:59 Output Total 200 / 1050 250 / 250 Balance -200 / -810 -250 / -250 Weight 91.1 kg Output: Urine 200 / 1050 250 / 250 Other: Urine Color Light Vi Straw Urine Appearance Clear Clear Clear Urine Odor Normal Normal Comment unmeasured Stool Size Moderate Stool Characteristics Soft Formed Brown Voiding Methods Urinal Toilet Laboratory Results WBC 1.99 k/cumm (4.4-10.8) L* 02/16/19 06:49 RBC 3.33 m/cumm (4.50-6.00) L 02/16/19 06:49 Hgb 9.9 g/dL (13.5-17.5) L 02/16/19 06:49 Hct 29.5 % (40.0-50.0) L 02/16/19 06:49 MCV 88.6 fL (80-95) 02/16/19 06:49 MCH 29.7 pg (27.0-33.0) 02/16/19 06:49 MCHC 33.6 g/dL (32.0-36.0) 02/16/19 06:49 RDW 15.3 % (11.8-14.1) H 02/16/19 06:49 Plt Count 38 x1000/uL (130-400) L 02/16/19 06:49 MPV 10.2 fL (8.0-11.0) 02/16/19 06:49 Immature Gran % 0.5 02/16/19 06:49 Neutrophils % 71.3 02/16/19 06:49 Lymphocytes % 14.1 02/16/19 06:49 Monocytes % 10.1 02/16/19 06:49 Eosinophils % 4.0 02/16/19 06:49 Basophils % 0.0 02/16/19 06:49 Absolute Neutrophils 1.42 k/cumm (1.2-6.7) 02/16/19 06:49 Absolute Lymphocytes 0.28 k/cumm (1.2-3.4) L 02/16/19 06:49 Absolute Monocytes 0.20 k/cumm (0.11-0.7) 02/16/19 06:49 Absolute Eosinophils 0.08 k/cumm (0.0-0.7) 02/16/19 06:49 Absolute Basophils 0.00 k/cumm (0.0-0.2) 02/16/19 06:49 Differential Comment Diff reviewed 02/16/19 06:49 RBC Morphology See below 02/16/19 06:49 Poikilocytosis 2+ 02/14/19 06:00 Anisocytosis 1+ 02/16/19 06:49 Ovalocytes 2+ 02/16/19 06:49 Sodium 138 mmol/L (136-145) 02/16/19 06:49 Potassium 4.5 mmol/L (3.5-5.1) 02/16/19 06:49 Chloride 106 mmol/L (98-107) 02/16/19 06:49 Carbon Dioxide 25.5 mmol/L (21.0-32.0) 02/16/19 06:49 Anion Gap 6.5 mmol/L (3-11) 02/16/19 06:49 BUN 14 mg/dL (7-18) 02/16/19 06:49 Creatinine 0.82 mg/dL (0.70-1.30) 02/16/19 06:49 Estimated GFR/1.73 m2 >= 60.00 (mL/min/1.73m2) 02/16/19 06:49 Glucose 152 mg/dL (74-106) H 02/16/19 06:49 Lactate 1.8 mmol/L (0.6-1.4) H 02/14/19 06:00 Calcium 8.0 mg/dL (8.5-10.1) L 02/16/19 06:49 Total Bilirubin 1.8 mg/dL (0.2-1.0) H 02/14/19 06:00 AST 33 U/L (15-37) 02/14/19 06:00 ALT 14 U/L (16-63) L 02/14/19 06:00 Alkaline Phosphatase 163 U/L (46-116) H 02/14/19 06:00 Troponin I < 0.05 ng/Ml (<0.06) 02/14/19 06:00 Total Protein 6.7 g/dL (6.4-8.2) 02/14/19 06:00 Albumin 3.0 g/dL (3.4-5.0) L 02/14/19 06:00 Urine Color Yellow (Yellow) 02/14/19 07:30 Urine Clarity Clear (Clear) 02/14/19 07:30 Urine pH 6.5 (5-8) 02/14/19 07:30 Ur Specific [place] 1.025 (1.005-1.025) 02/14/19 07:30 Urine Protein Trace mg/dL (Negative) H 02/14/19 07:30 Urine Ketones Negative mg/dL (Negative) 02/14/19 07:30 Urine Blood Large (Negative) H 02/14/19 07:30 Urine Nitrite Negative (Negative) 02/14/19 07:30 Urine Bilirubin Negative (Negative) 02/14/19 07:30 Urine Urobilinogen 2.0 EU/dL (Up TO 0.2) H 02/14/19 07:30 Ur Leukocyte Esterase Negative (Negative) 02/14/19 07:30 Urine RBC 20-50 HPF (0-2) H 02/14/19 07:30 Urine WBC 0-2 HPF (0-5) 02/14/19 07:30 Ur Epithelial Cells Rare HPF (Negative) 02/14/19 07:30 Urine Crystals Negative HPF (Negative) 02/14/19 07:30 Urine Bacteria Rare HPF (Negative) 02/14/19 07:30 Urine Casts Negative LPF (Negative) 02/14/19 07:30 Urine Mucus Trace (Negative) 02/14/19 07:30 Urine Other Few yeast (Negative) 02/14/19 07:30 Ur Culture Indicated? C&s done as ordered 02/14/19 07:30 Urine Glucose Negative mg/dL (Negative) 02/14/19 07:30
[2019-02-17] MEDS: Magnesium Gluconate 500 MG TAB 250 MG PO (17:11)
[2019-02-18 00:54] VITALS: BP 155/75; PULSE 70; RESP 16; TEMP 36; O2SAT 97
[2019-02-18 03:55] VITALS: BP 144/76; PULSE 71; RESP 19; TEMP 36.4; O2SAT 98
[2019-02-18] MEDS: Carvedilol 3.125 MG TAB PO (05:37)
[2019-02-18 07:55] VITALS: BP 124/71; PULSE 72; RESP 18; TEMP 36.7; O2SAT 97
[2019-02-18 08:04] VITALS: O2SAT 98
[2019-02-18 08:05] VITALS: RESP 15
[2019-02-18] MEDS: Insulin Aspart 300 UNITS/3 ML PEN SC ×2 (08:10→12:10)
[2019-02-18] MEDS: Oseltamivir 75 MG CAP PO (08:10)
--- NOTE | 2019-02-18 10:30 | W.PM.DS.N ---
Date of service: 02/18/19 Time of Service: 10:30 DS: Diagnosis Discharge Diagnosis (1) Rib contusion: Status: Acute Asessment and Plan: Mechanical fall at home, no obvious rib fracture on initial chest x-ray. Pain management marginal with tramadol. Contraindications to NSAIDs and acetaminophen. PT worked with him with improvement in his independent transfers and ambulation. Biggest complaint was pain trying to get up from supine to seated and reverse. Instructed to follow PT recommendations of rolling to his right side first and then getting up which seem to be more effective. By day of discharge with encouragement able to get up and out of bed without assistance. He is comfortable sitting up and brief ambulation per his usual. No pulmonary complications related to rib contusion or possible subtle rib fracture. Tried to manage his expectations with recovery time. Tylenol and NSAIDs relatively contraindicated because of his history of liver disease. (2) Influenza A: Status: Acute Asessment and Plan: No respiratory symptoms during his hospitalization and basically an incidental finding on admission. He will complete 5 days of Tamiflu as an outpatient. (3) HTN (hypertension): Status: None Asessment and Plan: Not a problem on his usual dose of carvedilol. (4) Parkinson disease: Status: None Asessment and Plan: No exacerbations on his usual dose of carbidopa levodopa. (5) Diabetes mellitus, insulin dependent (IDDM), controlled: Status: Acute Asessment and Plan: Blood sugars generally in the mid 100 range during hospitalization. He received a few doses of aspart insulin. He is not being discharged on any medications for diabetes management, with control through diet as he was doing before hospitalization. (6) Iron deficiency: Status: Chronic Asessment and Plan: He received his previously scheduled Annette for infusion during this hospitalization. He had no adverse reaction to the infusion. (7) Pancytopenia: Status: Chronic Asessment and Plan: No problems clearly related to this issue during this hospitalization. His blood counts were relatively stable with discharge CBC white count 1.99 hemoglobin 9.9 and platelet count 38,000. Discharge Plan Disposition Patient Disposition: HOME Condition: Improving Discharge Details Chief Complaint: RespSymp Clinical Impression: Influenza A, Pancytopenia, Sepsis Reason For Visit: INFLUENZA/ WEAKNESS/ RIB INJURY Admit Date/Time: 02/14/19 07:27 Admit Provider: Brandon West Attending Provider: Brandon West Primary Care Provider: Joanne Riggins ED Provider: Roni Matthews Hospital Course Hospital Course: 78-year-old man with Parkinson's disease who lives independently who presented to the emergency room after falling at home when he attempted to get up to urinate. He struck his rib cage, left chest, on a piece of furniture in the fall. He did not strike his head and had no loss of consciousness. He had difficulty getting up on his own, called EMS who found him febrile with some crackles in the lower lung erickson. He was brought into the emergency room where his CBC showed a relatively stable pancytopenia and rapid influenza was positive for influenza A. He was admitted for PT, pain control and initiation of oral treatment for influenza. He had no complaints prior to hospitalization of fever, chills, productive cough. Hospital course by problem as above. No changes were made to his chronic medications. He is being discharged to complete 5 days of Tamiflu. Home Meds and New Rx's Prescriptions: New oseltamivir [Tamiflu] 75 mg Capsule 75 mg PO BID Qty: 2 RF: 0 Continued tramadol 50 mg tablet 25 mg PO DAILY RF: 0 melatonin 5 MG tablet 10 mg PO HS RF: 0 carbidopa-levodopa 25-100 mg tablet extended release 2 tab PO QID Qty: 240 RF: 11 pantoprazole 40 MG tablet,delayed release (DR/EC) 40 mg PO DAILY RF: 0 carvedilol 3.125 MG tablet 3.125 mg PO BID RF: 0 magnesium oxide 250 mg magnesium tablet 250 mg PO DAILY RF: 0 Discharge Instructions Instructions: Influenza (DC) Additional Instructions: Use extra pillows in bed to keep your head propped up which may decrease your chest wall pain. You can use heat or cold on your chest, whichever is more comfortable. Watch for increasing cough, shortness of breath, fever and call your primary care provider or return to the emergency room if these develop. Stand Alone Forms: Nursing Discharge Form Referrals: Joanne Riggins [Primary Care Provider] - 02/24/19 7:15 am () Activity:: Activity as Tolerated Equipment/Supplies:: No Equipment Needed Diet:: Carb Counting Discharge Orders Discharge Orders: Discharge Order (Routine); Ordered 02/18/19 Ordered By: Geo Abdullahi DS: Summary Status at Discharge Functional status at discharge: uses cane/walker Overall status at discharge: patient is progressing back to baseline Mental Status: mental status grossly normal Speech and Movement: speech and movement normal Mood: congruent mood Affect: normal affect Exam Narrative Exam Narrative: Sitting in reclining chair he is in no acute distress on the morning of discharge. Afebrile, blood pressure 124/71, SaO2 98% on room air. He sits up in the recliner without any assistance and no complaints of pain. He turning lathe tender to palpation over the left lateral chest in the axillary line mid chest area. Lungs have good aeration throughout with no crackles wheeze or rub heard left or right. Heart rhythm regular without S3 or S4. He does not have any rest tremor. Psych Mental Status: mental status grossly normal Speech and Movement: speech and movement normal Mood: congruent mood Affect: normal affect DS: Data Vitals/I&O Vitals and I&O: Vital Signs Temperature 36.7 C 02/18/19 07:55 Temperature Source Tympanic 02/18/19 07:55 Pulse 72 02/18/19 07:55 Pulse Rhythm Regular 02/18/19 00:47 Respiratory Rate 18 02/18/19 07:55 Respiratory Effort Non-Labored 02/18/19 00:47 Respiratory Depth Normal 02/18/19 00:47 Respiratory Pattern Normal 02/18/19 00:47 Blood Pressure 124/71 02/18/19 07:55 Blood Pressure Mean 96 02/14/19 08:01 Blood Pressure Position Supine 02/14/19 05:28 Pulse Oximetry 98 02/18/19 08:04 Oxygen Delivery Method Room Air 02/18/19 08:04 Oxygen Flow Rate 0 02/18/19 08:04 Fraction of Inspired Oxygen (FIO2) 21 02/18/19 08:05 Pain Level 0 02/18/19 07:55 Comment 02/17/19 19:48 Intake & Output 02/17/19 02/17/19 02/18/19 11:59 23:59 11:59 Intake Total 240 / 240 Output Total 250 / 450 200 / 450 700 / 700 Balance -250 / -210 40 / -210 -700 / -700 Weight 91.1 kg 89.7 kg Intake: Oral 240 / 240 Output: Urine 250 / 450 200 / 450 700 / 700 Other: Urine Color Straw Straw Pale Yellow Urine Appearance Clear Clear Clear Urine Odor Normal Normal Normal Stool Size Moderate Moderate Stool Characteristics Soft Soft Formed Formed Brown Voiding Methods Toilet Urinal Toilet Data Completed and Pending Labs on day of discharge: Preliminary micro results at discharge 02/14/19 06:20 Blood Culture - Preliminary Blood NO GROWTH 96 HOURS 02/14/19 06:00 Blood Culture - Preliminary Blood NO GROWTH 96 HOURS [facility] Medical History (Updated 02/16/19 @ 17:27 by Geo Abdullahi MD) Anxiety (Chronic) Cirrhosis of liver (Chronic) On beta blockers; Under care of Dr. Joe. Colon cancer (Chronic) Multiple polypectomies. 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 Liver cirrhosis MGUS (monoclonal gammopathy of unknown significance) (Chronic) Mild cognitive impairment (Acute 08/17/15) HANS (obstructive sleep apnea) Pancytopenia (Chronic) Thought to be secondary to liver cirrhosis and splenic sequestratioin. Please note bone marrow biopsy was negative. Parkinson disease Perirectal abscess (Resolved) Prostate cancer (Chronic 05/24/02) S/P radiation, Lupron, now on Zoladex. Restless leg syndrome (Acute 10/24/16) Streptococcal bacteremia (Resolved) s/p removal of buried central venous access device. no bleeding. no pain. cont care. Tubulovillous adenoma of colon (Resolved 11/21/15) Ventral hernia (Chronic) Visual hallucination (Inactive) Surgical History BONE MARROW BIOPSY (11/25/14) LISSET Colectomy 1992 colonoscopy (11/21/15) H/O ventral hernia repair (Chronic) History of bowel resection (Chronic) History of Leonid fundoplication (Chronic) S/P cholecystectomy (Acute) S/P ear surgery (Acute) Family History Maternal Cousin Colon cancer Maternal Cousin Colon cancer Mother Cervical cancer Social History Smoking/Tobacco Use Status: Former Tobacco Use Quit Date: 06/17/94 Pack-years: 35 Second Hand Exposure: No Alcohol Intake: former Drug use: Never Household members: none Housing: apartment current occupation: Retired Seatbelt use: always Do you feel safe at home: Yes Do you feel safe in your relationship?: Yes Additional Social history: drinks < 1/month
--- NOTE | 2019-02-18 10:57 | PDOC.CMDIS ---
- If Service Date Differs Date of service: 02/18/19 Time of Service: 10:57 LACE Index Scoring Tool - Questions: Length of Stay (in days): 4 - 6 Acuity (Admit via E.D.?): Yes Comorbidities: Any Tumor (Colon and prostate cancer), Liver or Renal Disease (Cirrhosis of liver) E.D. Visits: 6 - Answers: Total Score: 16 Risk of Readmission: High Risk Care Management Discharge Reason for Hospitalization: Influenza Discharge Plan: Drake is discharged home with resumption of Choices for Care - moderate needs. He will follow up with his primary care physician and his plan of care as directed, including medications. Drake is being transported home by [facility] wheelchair van coordinated by CM. Patient/Family Education Needs: Nursing will review discharge instructions with Drake re medications and follow-up appointments. Drake is able to verbalize reason for hospitalization and how to manage care at home.
[2019-02-18] MEDS: Pantoprazole 40 MG TABCR PO (12:10)
--- NOTE | 2019-02-19 11:29 | IN_ITS ---
Date of service: 02/19/19 Time of Service: 11:29 PT Notes Visit Reasons: INFLUENZA/ WEAKNESS/ RIB INJURY Inpatient Physical Therapy Discharge Summary Dates: 02/18/2018 Dates of Service: 02/15/2019 through 02/18/2018 This is a clinical summary of care provided on the duration of dates listed above. No charge was made in the completion of this documentation. Referring Doctor: Brandon West MD PT Orders: PT CONSULT: Exacerbation of chronic condition. Parkinson's. Precautions: Fall. Droplet precautions. Activity as tolerated. Patient Profile/Admitting Diagnosis: Patient is a 78-year-old male with past medical history significant for Parkinson's disease and monoclonal gammopathy of unknown significance who presented to the ED on 02/14/2019 due to a fall the previous night hitting his ribs on the left side and with cough (that started 2 days prior to admission) as well as fever. Patient is diagnosed to be positive for influenza A, mild cognitive impairment, restless leg syndrome, and diabetes mellitus. Referral for physical therapy was sent to address functional mobility decline, strength deficits, and balance impairment in anticipation of return to [facility] when medically cleared to do so. PMHX: Medical History (Updated 02/14/19 @ 14:04 by Brandon West MD) Anxiety (Chronic) Cirrhosis of liver (Chronic) On beta blockers; Under care of Dr. Joe. Colon cancer (Chronic) Multiple polypectomies. 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 Liver cirrhosis MGUS (monoclonal gammopathy of unknown significance) (Chronic) Mild cognitive impairment (Acute 08/17/15) HANS (obstructive sleep apnea) Pancytopenia (Chronic) Thought to be secondary to liver cirrhosis and splenic sequestratioin. Please note bone marrow biopsy was negative. Parkinson disease Perirectal abscess (Resolved) Prostate cancer (Chronic 05/24/02) S/P radiation, Lupron, now on Zoladex. Restless leg syndrome (Acute 10/24/16) Streptococcal bacteremia (Resolved) s/p removal of buried central venous access device. no bleeding. no pain. cont care. Tubulovillous adenoma of colon (Resolved 11/21/15) Ventral hernia (Chronic) Visual hallucination (Inactive) Surgical History BONE MARROW BIOPSY (11/25/14) LISSET Colectomy 1993 colonoscopy (11/21/15) H/O ventral hernia repair (Chronic) History of bowel resection (Chronic) History of Leonid fundoplication (Chronic) S/P cholecystectomy (Acute) S/P ear surgery (Acute) Social History/Home Situation: Patient is a resident of the [facility] and occupy his room on the first floor. Patient performs community mobility using his Hoveround or his electric scooter. Patient states that he is able to negotiate the ramp to the entrance of the [facility] and gets to th e first floor via the elevator. He is able to do his grocery shopping via [facility] and has been managing his own meals, has been independent with bathing and dressing and reports that his been able to do short distance ambulation using no assistive device but holding onto calvillo and furniture inside his apartment. He has a home health aide comes in to help with medical receptionist medical assistant as well as laundry. Equipment Owned/DME: Hoveround, electric scooter, regular wheelchair, 4 wheeled walker, front wheeled walker, raised toilet seat, shower chair, CPAP machine Subjective: Patient is looking forward to going back to the [facility] with plan on having home health PT continue with skilling at home. Objective: General Observation: Patient seen sitting on chair. IV access remains open on the right UE. Bilateral TEDS on. Mental Status: Alert and oriented x4 Pain: Reports mild pain on the left ribs ROM: Right Upper Extremity: Shoulder Flexion WFL. Shoulder abduction WFL. Elbow flexion WFL. Wrist flexion WFL. Opening and closing of hand WFL. Left Upper Extremity: Shoulder Flexion WFL. Shoulder abduction WFL. Elbow flexion WFL. Wrist flexion WFL. Opening and closing of hand WFL. Right Lower Extremity: Hip flexion WFL. Hip abduction WFL. Knee flexion WFL. Ankle dorsiflexion WFL. Ankle plantarflexion WFL. Left Lower Extremity: Hip flexion WFL. Hip abduction WFL. Knee flexion WFL. Ankle dorsiflexion WFL. Ankle plantarflexion WFL. Strength: Right Upper Extremity: Shoulder flexors 4/5. Shoulder abductors 4/5. Elbow flexors 5/5. Elbow extensors 5/5. Loan And Credit Manager strong. Left Upper Extremity: Shoulder flexors 4/5. Shoulder abductors 4/5. Elbow flexors 5/5. Elbow extensors 5/5. Loan And Credit Manager strong. Right Lower Extremity: Hip flexors 4/5. Hip abductors 5/5. Knee flexors 4/5. Knee extensors 5/5. Ankle dorsiflexors 4/5. Ankle plantarflexors 5/5. Left Lower Extremity:Hip flexors 4/5. Hip abductors 5/5. Knee flexors 4/5. Knee extensors 5/5. Ankle dorsiflexors 4/5. Ankle plantarflexors 5/5. Sensation: Intact as to pain and pressure on bilateral lower extremities. Bed Mobility/Transfers: Sit to stand supervision Stand to sit supervision Bed to chair supervision Chair to bed supervision Gait: Patient tolerated level surface ambulation inside room for 25 feet using front wheeled walker with FWB and with only supervision of this PT. Parkinsonian tremor that is mild was observed with ambulation. Decreased step height and length is seen. No LOB observed. Balance: Static Sitting: Normal Dynamic Sitting: Normal Static Standing: Fair Dynamic Standing: Fair Assessment: Patient is a 78-year-old male with past medical history significant for Parkinson's disease and monoclonal gammopathy of unknown significance who presented to the ED on 02/14/2019 due to a fall the previous night hitting his ribs on the left side and with cough that started 2 days prior to admission as well as fever. Patient is diagnosed to be positive for influenza A, mild cognitive impairment, restless leg syndrome, and diabetes mellitus now presenting with impairment level findings and functional limitations as listed below that resolved to a [facility] CMS deficit score of 47% requiring skilled physical therapy services at this time. Patient continues to present with clinical signs and symptoms consistent with current/admitting diagnoses that have resulted to mobility limitations, gait instability, generalized weakness, and impairment of motor control as demonstrated by the following impairment level findings: 1. Impaired standing balance 2. Impaired activity tolerance Impairments continue to contribute to the following functional limitations: 1. Inability to safely ambulate without assistive device and physical assistance 2. Increase completion time for mobility ADL performance 3. Increased fall risk 4. Inability to negotiate steps alone safely Goals: Goals X1 week 1. Supine-Sit independent NOT MET using a rolled bed sheet tied to foot of bed to pull from 2. Sit-Supine independent MET using a rolled bed sheet tied to foot of bed to pull from 3. Sit-Stand independent MET 4. Stand-Sit independent NOT MET 5. Bed-Chair independent NOT MET 6. Chair-Bed independent NOT MET 7. Independent gait on level surface with use of least restrictive device for at least 200 feet without report of pain nor dyspnea 8. Independent with home exercise program 9. Good static and dynamic standing balance/tolerance DISCHARGE RECOMMENDATIONS: Patient will benefit from home health PT services in order to progress mobility level using least restrictive assistive ambulatory device, assess home safety, identify additional equipment needs, and establish a functional maintenance program that will increase ability of patient to remain at home. TREATMENT CODE/TIME: 00856 x 30 minutes beginning at 11:35 AM. Thank you very much for this referral. Jyoti Curtis PT, DPT, CLT [facility] [place], [place]
== END 2019-02-18 13:02 | disposition home or self-care (01) | DRG 194 ==
LOC: ER 07:57 → MS 08:14
PROVIDERS: Admitting Provider Family Medicine; Emergency Provider Student in an Organized Health Care Education/Training Program; PCP Nurse Practitioner Family; Visit Provider Internal Medicine
DX: J10.1 Influenza due to other identified influenza virus with other respiratory manifestations (principal); D61.818 Other pancytopenia; S20.20XA Contusion of thorax, unspecified, initial encounter; S61.101A Unspecified open wound of right thumb with damage to nail, initial encounter; W18.12XA Fall from or off toilet with subsequent striking against object, initial encounter; I10 Essential (primary) hypertension; G20 Parkinson's disease; E11.9 Type 2 diabetes mellitus without complications; Z79.4 Long term (current) use of insulin; E61.1 Iron deficiency; G31.84 Mild cognitive impairment of uncertain or unknown etiology; D47.2 Monoclonal gammopathy; K74.60 Unspecified cirrhosis of liver; G25.81 Restless legs syndrome; Z85.038 Personal history of other malignant neoplasm of large intestine; Z90.49 Acquired absence of other specified parts of digestive tract; G47.33 Obstructive sleep apnea (adult) (pediatric); K21.9 Gastro-esophageal reflux disease without esophagitis; Z71.3 Dietary counseling and surveillance
CPT/HCPCS: 36415; 80048; 80053; 87040; 87449; 93005; 96360; 96361; 97110; 97162; 97530; 99223; 99232; 99238; 99285; 71045; 81003; 81015; 83605; 84484; 85025; 87086; 93010; 94660; J1756; J2405

== ENCOUNTER 2019-03-04 14:42 | Observation (INO) | payer OTHER, SELFPAY ==
[2019-03-04] VITALS (45 sets, daily range): BP systolic 120–182; BP diastolic 53–81; PULSE 58–73; RESP 10–20; TEMP 36.7–36.9; O2SAT 93–100
--- NOTE | 2019-03-04 14:59 | W.ED.GENAD ---
Discharge Plan Disposition Patient Disposition: [facility] INPATIENT Condition: Stable Discharge Details Chief Complaint: Nausea/Vomit/Diar Clinical Impression: Gastroenteritis Admit Date/Time: 03/04/19 19:25 Admit Provider: Andrea Tomas Attending Provider: Andrea Tomas Primary Care Provider: Joanne Riggins ED Provider: Pramod Pruitt Discharge Data Discharge Date/Time-TO BE ENTERED AT DEPARTURE: 03/04/19 20:20 Medical Decision Making 78-year-old male presents with day 5 of nausea, intermittent episodes of emesis, loose watery stool. He has been weak and lightheaded but has not had syncope. He denies abdominal pain. He has had no blood in the emesis or rectal effluent. He has a number of chronic medical conditions including a mildly clonal gammopathy with chronic pancytopenia, diabetes, Parkinson's disease. He has recently begun treatment for oral thrush. Differential diagnosis is broad, his presentation is most worrisome for gastroenteritis, dehydration, electrolyte abnormality, and given chronic pancytopenia he is at risk for peritoneal bleed as well. IV was placed, patient given antiemetic, fluids, screening laboratories obtained. Laboratories reveal chronic glucose 204 with a white blood cell count of 1.6, hematocrit is 30, platelets 54. These are similar to baseline. Sodium 140, potassium 4.4, chloride 107, bicarb 27, BUN 11, creatinine 0.8, glucose 204, AST 28, ALT less than 6, total bili 1.3 (chronic), albumin depressed at 2.8. Following 1500 cc of fluid, patient was given a p.o. challenge with ice chips which he failed due to recurrent nausea and bloating. CT scan was obtained with no acute findings, a number of chronic findings including evidence of cirrhosis, splenomegaly, portal hypertension. Decreased small abdominal ascites, stable small pelvic ascites, additional findings described in the formal report. Patient states to me that he wishes to be full code unless he has a terminal disease. Discussed with him admission for observation and hydration. Patient to be admitted by Dr. Pradhan. Lab Data Lab results reviewed: Yes I reviewed the patient's lab results. Labs: Laboratory Results - last 24 hr 03/04/19 03/04/19 15:00 15:00 WBC 1.65 L* RBC 3.39 L Hgb 10.2 L Hct 30.3 L MCV 89.4 MCH 30.1 MCHC 33.7 RDW 15.6 H Plt Count 54 L MPV 10.4 Immature Gran % 0.0 Neutrophils % 64.9 Lymphocytes % 18.8 Monocytes % 11.5 Eosinophils % 4.2 Basophils % 0.6 Absolute Neutrophils 1.07 L Absolute Lymphocytes 0.31 L Absolute Monocytes 0.19 Absolute Eosinophils 0.07 Absolute Basophils 0.01 Differential Comment Diff reviewed RBC Morphology See below Anisocytosis 1+ Ovalocytes 2+ Sodium 140 Potassium 4.4 Chloride 107 Carbon Dioxide 27.6 Anion Gap 5.4 BUN 11 Creatinine 0.89 Estimated GFR/1.73 m2 >= 60.00 Glucose 204 H Calcium 8.2 L Magnesium 1.8 Total Bilirubin 1.3 H AST 28 ALT < 6 L Alkaline Phosphatase 156 H Total Protein 6.4 Albumin 2.8 L HPI General Mode of arrival: ambulatory. Date/Time Provider Initiated Documentation: 03/04/19 14:44. Limitations to Documentation: no limitations. Information obtained by: patient. History of Present Illness 78 year old M presents to the emergency department with the chief complaint of Nausea, vomiting, loose stool, weakness, described as moderate, Quality is described as dull, Patient reports no radiation. Patient started experiencing this hour(s) and it has been intermittent. No relieving factors improve symptom(s), No exacerbating factors reported . Patient notes malaise, nausea/vomiting and weakness; denies confusion, chest pain, headaches and syncope. Patient did receive the following treatments prior to arrival, none Related Data Home Medications Medication Instructions Recorded Confirmed pantoprazole 40 mg PO DAILY 11/27/12 03/04/19 carvedilol 3.125 mg PO BID 05/30/13 03/04/19 melatonin 10 mg PO HS 08/27/17 03/04/19 magnesium oxide 250 mg PO DAILY 04/22/18 03/04/19 carbidopa ER 25 mg-levodopa 100 mg 2 tab PO QID #240 tab 07/21/18 03/04/19 tablet,extended release tramadol 50 mg tablet 25 mg PO DAILY tab 01/26/19 03/04/19 Previous Rx's Medication Instructions Recorded carbidopa ER 25 mg-levodopa 100 mg 2 tab PO QID #240 tab 07/21/18 tablet,extended release Allergies Allergy/AdvReac Type Severity Reaction Status Date / Time leuprolide acetate Allergy Severe Swelling/Ed Verified 03/04/19 14:55 [From Lupron] isabelle adhesive Allergy Intermediate Skin Rash Verified 03/04/19 14:55 enalapril [Enalapril] AdvReac Severe Hyperkalemi Verified 03/04/19 14:55 a aspirin AdvReac Intermediate Verified 03/04/19 14:55 esomeprazole magnesium AdvReac Intermediate Diarrhea Verified 03/04/19 14:55 [From Nexium] metformin AdvReac Intermediate Diarrhea Verified 03/04/19 14:55 acetaminophen AdvReac Mild Diarrhea Verified 03/04/19 14:55 General Stated Complaint: Nausea/Vomit/Diar SHEKHAR: 3 Review of Systems Narrative: 6 systems reviewed and otherwise negative. The patient questions whether his symptoms began after beginning clotrimazole lozenges for thrush. He was admitted to the hospital over the new year for influenza which was treated with Tamiflu. [facility] Medical History Anxiety (Chronic) Cirrhosis of liver (Chronic) On beta blockers; Under care of Dr. Joe. Colon cancer (Chronic) Multiple polypectomies. 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 Liver cirrhosis MGUS (monoclonal gammopathy of unknown significance) (Chronic) Mild cognitive impairment (Acute 08/17/15) HANS (obstructive sleep apnea) Pancytopenia (Chronic) Thought to be secondary to liver cirrhosis and splenic sequestratioin. Please note bone marrow biopsy was negative. Parkinson disease Perirectal abscess (Resolved) Prostate cancer (Chronic 05/24/02) S/P radiation, Lupron, now on Zoladex. Restless leg syndrome (Acute 10/24/16) Streptococcal bacteremia (Resolved) s/p removal of buried central venous access device. no bleeding. no pain. cont care. Tubulovillous adenoma of colon (Resolved 11/21/15) Ventral hernia (Chronic) Visual hallucination (Inactive) Surgical History BONE MARROW BIOPSY (11/25/14) LISSET Colectomy 1993 colonoscopy (11/21/15) H/O ventral hernia repair (Chronic) History of bowel resection (Chronic) History of Leonid fundoplication (Chronic) S/P cholecystectomy (Acute) S/P ear surgery (Acute) Family History Maternal Cousin Colon cancer Maternal Cousin Colon cancer Mother Cervical cancer Social History Smoking/Tobacco Use Status: Former Tobacco Use Quit Date: 06/17/94 Pack-years: 37 Second Hand Exposure: No Alcohol Intake: former Drug use: Never Household members: none Housing: apartment current occupation: Retired Seatbelt use: always Do you feel safe at home: Yes Do you feel safe in your relationship?: Yes Additional Social history: drinks < 1/month Exam Narrative Exam Narrative: GEN: awake, alert, oriented 3. Pleasant, well groomed, interactive. HEAD: Normocephalic, atraumatic ENT: Mucous membranes dry, oropharynx unremarkable, External ear exam unremarkable EYES: PERRL, EOMI NECK: Full ROM, no ISAÍAS, no menigismus CHEST/RESP: Nontender, clear to auscultation bilateral, no wheeze/rhonchi/rales CARDIOVASCULAR: RRR, no murmur, rub sinai. 2+ Rad pulse bilateral ABDOMEN: Soft, nontender, no mass. +Bowel sounds EXT: Full ROM, no edema, no rash Neuro: Grossly normal neurologic exam, conversant, interactive. Psych: Speech fluent, thoughts congruent, affect normal Course Vital Signs Vital signs: Vital Signs Temperature 36.9 C 03/04/19 14:46 Pulse 73 03/04/19 14:46 Respiratory Rate 03/04/19 14:46 Blood Pressure 153/71 H 03/04/19 14:46 Pulse Oximetry 98 03/04/19 14:46 Temperature 36.9 C 03/04/19 14:46 Temperature Source Skin 03/04/19 14:46 Pulse 73 03/04/19 14:46 Respiratory Rate 03/04/19 14:46 Respiratory Effort Non-Labored 03/04/19 14:52 Blood Pressure 153/71 H 03/04/19 14:46 Blood Pressure Position Supine 03/04/19 14:46 Pulse Oximetry 98 01/16/20 14:46 Oxygen Delivery Method Room Air 03/04/19 14:46 Oxygen Flow Rate 0 03/04/19 14:46 Pain Level 0 03/04/19 14:46
[2019-03-04] MEDS: Normal Saline Flush 10 ML SYR IVP (15:00)
[2019-03-04] MEDS: Normal Saline 1,000 ML 1000 ML IV (15:05)
[2019-03-04 15:10] LABS: Absolute Basophil Count 0.01 k/cumm (0.0-0.2); Absolute Eosinophil Count 0.07 k/cumm (0.0-0.7); Absolute Lymphocyte Count 0.31 k/cumm (1.2-3.4); Absolute Monocyte Count 0.19 k/cumm (0.11-0.7); Absolute Neutrophil Count 1.07 k/cumm (1.2-6.7); Basophils % 0.6; Eosinophils % 4.2; HCT 30.3 % (40.0-50.0); HGB 10.2 g/dL (13.5-17.5); Lymphocytes % 18.8; Mean Corp. HGB Concentration 33.7 g/dL (32.0-36.0); Mean Corpuscular Hemoglobin 30.1 pg (27.0-33.0); Mean Corpuscular Volume 89.4 fL (80-95); Mean Platelet Volume 10.4 fL (8.0-11.0); Monocytes % 11.5; Neutrophils % 64.9; RBC 3.39 m/cumm (4.50-6.00); RBC Distribution Width 15.6 % (11.8-14.1)
[2019-03-04] MEDS: Ondansetron 4 MG/2 ML VIAL IVP ×2 (15:12→17:32)
[2019-03-04 15:21] LABS: Diff Comment Diff Reviewed; Platelet Count 54 x1000/uL (130-400); White Blood Cell Count 1.65 k/cumm (4.4-10.8)
[2019-03-04 15:22] LABS: Anisocytosis 1+; Ovalocytes 2+
[2019-03-04 15:24] LABS: AST 28 U/L (15-37); Albumin 2.8 g/dL (3.4-5.0); Alkaline Phosphatase 156 U/L (46-116); Anion Gap 5.4 mmol/L (3-11); BUN 11 mg/dL (7-18); Bilirubin, Total 1.3 mg/dL (0.2-1.0); CO2 27.6 mmol/L (21.0-32.0); CREATININE 0.89 mg/dL (0.70-1.30); Calcium 8.2 mg/dL (8.5-10.1); Chloride 107 mmol/L (98-107); Glucose 204 mg/dL (74-106); Magnesium 1.8 mg/dL (1.8-2.4); Potassium 4.4 mmol/L (3.5-5.1); Sodium 140 mmol/L (136-145); Total Protein 6.4 g/dL (6.4-8.2)
[2019-03-04 16:01] LABS: ALT < 6 U/L (16-63)
[2019-03-04] MEDS: Normal Saline 500 ML IV (17:10)
--- NOTE | 2019-03-04 18:08 | DI.CT_ITS ---
EXAM: CT ABDOMEN PELVIS W CLINICAL HISTORY: abd bloating, nausea TECHNIQUE: Post IV and without oral contrast. COMPARISON: CT CHEST/ABD/PEL W from 01/27/2019 FINDINGS: A hiatal hernia is again noted. The liver has a cirrhotic appearance. There is fluid seen around th e liver and spleen which appears to have slightly decreased when compared with the previous exam. Th ere is a stable cystic-appearing lesion anteriorly in the right inferior liver. There is a vaguely d efined area of decreased attenuation at the inferior right lobe measuring roughly 3 cm in diameter. No biliary dilatation is seen. The spleen is quite enlarged, unchanged. A cyst is noted at the lower pole of the right kidney. There is a nonobstructing stone in the lower pole of the right kidney. S maller cysts are seen on the left kidney. There is a nonobstructing stone seen inferior on the left kidney. There is a small amount of pelvic ascites. Metallic densities are noted in the region of the prostate. There is a normal quantity of stool. No bowel dilatation or inflammatory changes are seen . There is an anastomosis of the colon seen in the midline. There is midline surgical scarring. Th ere is a fatty containing hernia to the left of the midline scar. Bladder is empty but unremarkable. Heart appears mildly enlarged. The lung bases show mild dependent changes, greater on the left. T here is a stable L3 compression fracture. No acute fractures are identified. Aorta shows mild calci fication. IMPRESSION: No acute abnormality. Cirrhotic liver and enlarged spleen as well as ascites are again noted.
[2019-03-04] MEDS: Normal Saline 1,000 ML 125 ML IV ×2 (18:15→21:12)
[2019-03-04] MEDS: Omnipaque 350 MG/ML 100 ML BTL IJ (18:15)
--- NOTE | 2019-03-04 18:35 | DI.VRAD_ITS ---
PROCEDURE INFORMATION: Exam: CT Abdomen And Pelvis With Contrast Exam date and time: 03/04/2019 17:25 Age: 78 years old Clinical indication: Nausea and vomiting; Abdominal pain; Prior surgery TECHNIQUE: Imaging protocol: Computed tomography of the abdomen and pelvis with intravenous contrast. COMPARISON: CT CHEST/ABD/PEL W 01/27/2019 09:46 FINDINGS: Lungs: Opacities left greater than right lung base, increased from prior, however predominantly linear and subpleural most suggestive of subsegmental atelectasis. Mediastinum: Small hiatal hernia. Liver: Cirrhosis. . Subcapsular hypodensity in the right lobe of the liver similar to the previous study appears cystic. A hazy area of low attenuation in the tip of the liver approximately 45 mm is similar and could reflect a mass lesion including hepatocellular carcinoma. Multiphasic imaging would be recommended for full characterization. Gallbladder and bile ducts: Cholecystectomy Pancreas: While cystic structure in the pancreatic head is stable. Follow-up as per institutional protocol. No pancreatic ductal dilation. Spleen: Splenomegaly again seen. Adrenals: No mass. Kidneys and ureters: Bilateral renal stones are seen without obstruction. A large benign-appearing right renal cyst. No renal masses. Stomach and bowel: Post surgical changes in the right colon. Grossly normal anastomosis. No acute pathology in the small bowel. No convincing colitis for the degree of distention. Scattered diverticula with no inflammation. Appendix: No evidence of appendicitis. Intraperitoneal space: Small amount of pelvic free fluid similar to prior. Slightly decreased small abdominal ascites. Vasculature: Enlarged patent portal venous system similar to prior. Upper abdominal venous varices again seen. Mild dilation of the infrarenal aorta. No evidence of rupture. Lymph nodes: No significantly enlarged lymph nodes. Bladder: Unremarkable as visualized. Reproductive: Metallic beads in the region of the prostate gland. Bones/joints: The bones are demineralized. Degenerative changes in the spine. A chronic moderate compression deformity of L3. No acute fracture or subluxation. Nonacute rib fractures. Soft tissues: Tiny fat-containing umbilical hernia. Left upper abdominal hernia containing fat and mesenteric vasculature similar to the previous study. A thickened appearance of the midline rectus sheath and linea alba in the mid abdomen is similar to the previous study, there is not definitely masslike, question scarring. Clips or coils in the right inguinal canal. A ventral abdominal mesh is likely present. IMPRESSION: 1. No acute findings. 2. Cirrhosis. Splenomegaly. Portal hypertension. 3. Slightly decreased small abdominal ascites. Stable small pelvic ascites. 4. Additional findings as described are similar to the prior study. Dictated and Authenticated by: Zayda Toure MD. Ordering:CESAR Benavidez MD
[2019-03-04 18:36] LABS: Bilirubin Negative (Negative); Blood Moderate (Negative); Clarity Clear (Clear); Glucose Negative (Negative); Ketones Negative (Negative); Leukocyte Esterase Negative (Negative); Nitrite Negative (Negative); Specific Gravity 1.025 (1.005-1.025); Urobilinogen 0.2 EU/dL (Up TO 0.2)
[2019-03-04 18:50] LABS: Epithelial Cells Few HPF (Negative); WBC 0-2 HPF (0-5)
[2019-03-04 18:51] LABS: Bacteria Rare HPF (Negative); C & S Indicated? No; Casts Negative LPF (Negative); Crystals Negative HPF (Negative); Mucus Trace (Negative); Other Cells Few Yeast (Negative)
--- NOTE | 2019-03-04 19:36 | W.PM.HP.N ---
Date of service: 03/04/19 Time of Service: 19:36 Assessment and Plan Assessment and plan (1) Emesis, persistent: Start date: 03/04/19 Status: Acute Assessment and plan: This is a 78-year-old gentleman who has had recent admission for influenza treated with Tamiflu and a more recent onset of emesis with the patient keeping half of his food down for 4 to 5 days and now having uncontrolled emesis in the ED and not able to take even ice chips requiring admission for IV hydration and bowel rest. He did begin to have diarrhea and dizziness with weakness the day prior to admission. He attributes his nausea and vomiting to treatment of thrush about 5 to 6 days ago. We will continue IV hydration overnight and follow-up labs in the morning patient to advance activity and hopefully return home within the next 24 hours. There is no evidence of other etiologies for his acute symptoms with thorough evaluation in the ED. His chronic medical problems appear to be stable. (2) Viral gastroenteritis: Start date: 03/04/19 Status: Acute Assessment and plan: It is possible all the patient symptoms are from a viral gastroenteritis but with his chronic issues could be an exacerbation of his chronic GI symptoms though the patient did not complain of diarrhea he does have a history of IBS. That would not explain his emesis which he attributes to thrush to the treatment of this problem. Bowel rest and IV hydration overnight with return home if he can advance his diet to clear fluids in the morning. (3) Influenza: Status: Resolved Assessment and plan: Patient was recently hospitalized for influenza and this may be contributed to his acute viral syndrome presently being compromised and still recovering. There is no indication for any other treatment at this time and there does not appear to be secondary infections that are bacterial. Continue to monitor palpation is improved with IV hydration overnight. History of Present Illness History of Present Illness Chief Complaint: Intractable vomiting Narrative: This is a 78-year-old gentleman who lives alone with Parkinson's disease, cirrhosis of liver with portal hypertension and MGUS and pancytopenia thought to be secondary to liver cirrhosis and splenic sequestration as well who presented to the ED with emesis over 5 to 6 days and new onset of diarrhea with dizziness. He persisted with emesis and not able to take even ice chips in the ED therefore was admitted overnight for IV hydration and bowel rest. He thinks that the thrush he had recently with nystatin treatment may have caused his diarrhea though the emesis has been persistent longer. It appears to be more viral syndrome with the patient being status post influenza with hospitalization at the first of the year. He was treated with Tamiflu. He does live alone and chronically has problems with ambulation and falls. He has no other acute complaints and seems to be in admitted for observation has not had a stool for sample with C. difficile pending. He denies any blood in his emesis or stool. He denies nausea presently. He states that he has been able to take some fluid over the last 5 days and has not felt dry. He has been able to take his pills. He is a full code at this point. Review of Systems Narrative: 13 point review of systems otherwise unrevealing or stable. [facility] Medical History Anxiety (Chronic) Cirrhosis of liver (Chronic) On beta blockers; Under care of Dr. Joe. Colon cancer (Chronic) Multiple polypectomies. 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 Liver cirrhosis MGUS (monoclonal gammopathy of unknown significance) (Chronic) Mild cognitive impairment (Acute 08/17/15) HANS (obstructive sleep apnea) Pancytopenia (Chronic) Thought to be secondary to liver cirrhosis and splenic sequestratioin. Please note bone marrow biopsy was negative. Parkinson disease Perirectal abscess (Resolved) Prostate cancer (Chronic 05/24/02) S/P radiation, Lupron, now on Zoladex. Restless leg syndrome (Acute 10/24/16) Streptococcal bacteremia (Resolved) s/p removal of buried central venous access device. no bleeding. no pain. cont care. Tubulovillous adenoma of colon (Resolved 11/21/15) Ventral hernia (Chronic) Visual hallucination (Inactive) Surgical History BONE MARROW BIOPSY (11/25/14) LISSET Colectomy 1992 colonoscopy (11/21/15) H/O ventral hernia repair (Chronic) History of bowel resection (Chronic) History of Leonid fundoplication (Chronic) S/P cholecystectomy (Acute) S/P ear surgery (Acute) Family History Maternal Cousin Colon cancer Maternal Cousin Colon cancer Mother Cervical cancer Social History Smoking/Tobacco Use Status: Former Tobacco Use Quit Date: 06/17/94 Pack-years: 37 Second Hand Exposure: No Alcohol Intake: former Drug use: Never Household members: none Housing: apartment current occupation: Retired Seatbelt use: always Do you feel safe at home: Yes Do you feel safe in your relationship?: Yes Additional Social history: drinks < 1/month Meds Home Medications and Allergies Home Medications Medication Instructions Recorded Confirmed Type pantoprazole 40 mg PO DAILY 11/27/12 03/04/19 History carvedilol 3.125 mg PO BID 05/30/13 03/04/19 History melatonin 10 mg PO HS 08/27/17 03/04/19 History magnesium oxide 250 mg PO DAILY 04/22/18 03/04/19 History carbidopa ER 25 mg-levodopa 100 mg 2 tab PO QID #240 tab 07/21/18 03/04/19 Rx tablet,extended release tramadol 50 mg tablet 25 mg PO DAILY tab 01/26/19 03/04/19 History Allergies Allergy/AdvReac Type Severity Reaction Status Date / Time leuprolide acetate Allergy Severe Swelling/Ed Verified 03/04/19 14:55 [From Lupron] isabelle adhesive Allergy Intermediate Skin Rash Verified 03/04/19 14:55 enalapril [Enalapril] AdvReac Severe Hyperkalemi Verified 03/04/19 14:55 a aspirin AdvReac Intermediate Verified 03/04/19 14:55 esomeprazole magnesium AdvReac Intermediate Diarrhea Verified 03/04/19 14:55 [From Nexium] metformin AdvReac Intermediate Diarrhea Verified 03/04/19 14:55 acetaminophen AdvReac Mild Diarrhea Verified 03/04/19 14:55 Exam Narrative Exam Narrative: General: The patient appears appropriate for age but chronically ill, flattened affect with masklike facies with his Parkinson's disease, alert and oriented to person and place at least. HEENT: Normocephalic with balding, masklike facies as mentioned, eyes with pupils equal and reactive to light symmetrically with extraocular movement intact and sclera anicteric. Oropharynx with dry oral mucosa. External ears normal. Neck: Supple without JVD or bruits. Back: Stooped posture with no CVA tenderness. Heart: Regular rate and rhythm with no murmurs or gallops appreciated. Abdomen: Obese contour, well-healed midline scar, no palpable hepatosplenomegaly and no focal guarding or tenderness. Soft to palpation. Bowel sounds are hyperactive and positive in all quadrants. Genitalia/rectal: Exam deferred. Patient is wearing adult diaper. Extremities: Nonpitting edema lower extremities with loss of hair over both legs, no cyanosis or clubbing. Chronic arthritic changes over most joints with no swelling. Skin: Pale, warm and dry. Some bruising over his upper extremities which appears old. No rashes. Neuro: Cranial nerves II through XII grossly intact, motor intact with no focalizing. No tremor noted but some increased muscle rigidity. Psych: Flattened affect with little variation with his Parkinson's disease, remote memory intact and recent memory appear to be intact. Mood appears slightly agitated. Results Imaging Imaging Studies: Exam(s) PROCEDURE INFORMATION: Exam: CT Abdomen And Pelvis With Contrast Exam date and time: 03/04/2019 17:25 Age: 78 years old Clinical indication: Nausea and vomiting; Abdominal pain; Prior surgery TECHNIQUE: Imaging protocol: Computed tomography of the abdomen and pelvis with intravenous contrast. COMPARISON: CT CHEST/ABD/PEL W 01/27/2019 09:46 FINDINGS: Lungs: Opacities left greater than right lung base, increased from prior, however predominantly linear and subpleural most suggestive of subsegmental atelectasis. Mediastinum: Small hiatal hernia. Liver: Cirrhosis. . Subcapsular hypodensity in the right lobe of the liver similar to the previous study appears cystic. A hazy area of low attenuation in the tip of the liver approximately 45 mm is similar and could reflect a mass lesion including hepatocellular carcinoma. Multiphasic imaging would be recommended for full characterization. Gallbladder and bile ducts: Cholecystectomy Pancreas: While cystic structure in the pancreatic head is stable. Follow-up as per institutional protocol. No pancreatic ductal dilation. Spleen: Splenomegaly again seen. Adrenals: No mass. Kidneys and ureters: Bilateral renal stones are seen without obstruction. A large benign-appearing right renal cyst. No renal masses. Stomach and bowel: Post surgical changes in the right colon. Grossly normal anastomosis. No acute pathology in the small bowel. No convincing colitis for the degree of distention. Scattered diverticula with no inflammation. Appendix: No evidence of appendicitis. Intraperitoneal space: Small amount of pelvic free fluid similar to prior. Slightly decreased small abdominal ascites. Vasculature: Enlarged patent portal venous system similar to prior. Upper abdominal venous varices again seen. Mild dilation of the infrarenal aorta. No evidence of rupture. Lymph nodes: No significantly enlarged lymph nodes. Bladder: Unremarkable as visualized. Reproductive: Metallic beads in the region of the prostate gland. Bones/joints: The bones are demineralized. Degenerative changes in the spine. A chronic moderate compression deformity of L3. No acute fracture or subluxation. Nonacute rib fractures. Soft tissues: Tiny fat-containing umbilical hernia. Left upper abdominal hernia containing fat and mesenteric vasculature similar to the previous study. A thickened appearance of the midline rectus sheath and linea alba in the mid abdomen is similar to the previous study, there is not definitely masslike, question scarring. Clips or coils in the right inguinal canal. A ventral abdominal mesh is likely present. IMPRESSION: 1. No acute findings. 2. Cirrhosis. Splenomegaly. Portal hypertension. 3. Slightly decreased small abdominal ascites. Stable small pelvic ascites. 4. Additional findings as described are similar to the prior study. Dictated and Authenticated by: Zayda Toure MD. Labs Result diagrams: 03/04/19 15:00 03/04/19 15:00 Labs: Laboratory Results - last 24 hr 03/04/19 03/04/19 03/04/19 15:00 15:00 18:28 WBC 1.65 L* RBC 3.39 L Hgb 10.2 L Hct 30.3 L MCV 89.4 MCH 30.1 MCHC 33.7 RDW 15.6 H Plt Count 54 L MPV 10.4 Immature Gran % 0.0 Neutrophils % 64.9 Lymphocytes % 18.8 Monocytes % 11.5 Eosinophils % 4.2 Basophils % 0.6 Absolute Neutrophils 1.07 L Absolute Lymphocytes 0.31 L Absolute Monocytes 0.19 Absolute Eosinophils 0.07 Absolute Basophils 0.01 Differential Comment Diff reviewed RBC Morphology See below Anisocytosis 1+ Ovalocytes 2+ Sodium 140 Potassium 4.4 Chloride 107 Carbon Dioxide 27.6 Anion Gap 5.4 BUN 11 Creatinine 0.89 Estimated GFR/1.73 m2 >= 60.00 Glucose 204 H Calcium 8.2 L Magnesium 1.8 Total Bilirubin 1.3 H AST 28 ALT < 6 L Alkaline Phosphatase 156 H Total Protein 6.4 Albumin 2.8 L Urine Color Vi Urine Clarity Clear Urine pH 6.0 Ur Specific [place] 1.025 Urine Protein Negative Urine Ketones Negative Urine Blood Moderate H Urine Nitrite Negative Urine Bilirubin Negative Urine Urobilinogen 0.2 Ur Leukocyte Esterase Negative Urine RBC 3-5 H Urine WBC 0-2 Ur Epithelial Cells Few Urine Crystals Negative Urine Bacteria Rare Urine Casts Negative Urine Mucus Trace Urine Other Few yeast Ur Culture Indicated? No Urine Glucose Negative Last Vital Signs Temp 36.9 C 03/04/19 14:46 Pulse 63 03/04/19 19:20 Resp 16 03/04/19 19:20 BP 158/65 H 03/04/19 19:20 Pulse Ox 98 03/04/19 19:20
[2019-03-04 19:59] LABS: INR 1.4 (0.9-1.1); Prothrombin Time 13.8 sec (9.3-11.0)
[2019-03-04] MEDS: Melatonin 3 MG TAB 9 MG PO (22:44)
[2019-03-05 04:33] VITALS: BP 167/77; PULSE 67; RESP 16; TEMP 36.5; O2SAT 98
[2019-03-05] MEDS: Normal Saline 1,000 ML 125 ML IV (04:33)
[2019-03-05 07:08] LABS: HCT 28.3 % (40.0-50.0); HGB 9.4 g/dL (13.5-17.5); Mean Corp. HGB Concentration 33.2 g/dL (32.0-36.0); Mean Corpuscular Hemoglobin 29.7 pg (27.0-33.0); Mean Corpuscular Volume 89.6 fL (80-95); Mean Platelet Volume 11.1 fL (8.0-11.0); RBC 3.16 m/cumm (4.50-6.00); RBC Distribution Width 15.5 % (11.8-14.1)
[2019-03-05 07:34] LABS: Platelet Count 40 x1000/uL (130-400)
[2019-03-05 07:35] LABS: White Blood Cell Count 0.84 k/cumm (4.4-10.8)
[2019-03-05 07:36] LABS: AST 29 U/L (15-37); Albumin 2.5 g/dL (3.4-5.0); Alkaline Phosphatase 130 U/L (46-116); Anion Gap 5.2 mmol/L (3-11); BUN 8 mg/dL (7-18); Bilirubin, Total 1.3 mg/dL (0.2-1.0); CO2 26.8 mmol/L (21.0-32.0); CREATININE 0.94 mg/dL (0.70-1.30); Calcium 8.1 mg/dL (8.5-10.1); Chloride 111 mmol/L (98-107); Glucose 103 mg/dL (74-106); Potassium 4.4 mmol/L (3.5-5.1); Sodium 143 mmol/L (136-145); Total Protein 5.5 g/dL (6.4-8.2)
[2019-03-05 07:37] LABS: ALT < 6 U/L (16-63)
[2019-03-05 07:54] VITALS: BP 173/76; PULSE 60; RESP 16; TEMP 36.5; O2SAT 100
[2019-03-05 08:28] LABS: Absolute Eosinophil Count 0.02 k/cumm (0.0-0.7)
[2019-03-05 08:33] LABS: Absolute Neutrophil Count 0.42 k/cumm (1.2-6.7)
[2019-03-05 08:34] LABS: Diff Comment Manual Differential
[2019-03-05 08:35] LABS: Anisocytosis 1+; Polychromasia Present
[2019-03-05 08:36] LABS: Poikilocytes 1+
[2019-03-05 08:40] VITALS: O2SAT 99
--- NOTE | 2019-03-05 08:44 | RESPIRATORY ---
Pt asked if he uses a CPAP/Bipap for his Obstructive Sleep Apnea (HANS). RT told by Pt that he does have a machine but no one to bring it in for him. RT asked patient if he wanted to use one of the hospital units, pt denied. He stated he will be fine as it's a waste of money for him to use it for a short period of time.
--- NOTE | 2019-03-05 08:51 | PHARADMIT ---
Admission Pharmacy Clinical Review INTRACTABLE EMESIS, VIRAL GASTROENTERITIS Code Status Full Code Current Weight Wgt-84.3 kg Renally Cleared and Narrow Therapeutic Index Meds CrCl~64ml/min Meds-OK QTc Value / Action Taken BP Control, FeverBP- BP-173/76 Tmax-36.9C Electrolytes reviewed Na-143 K? 4,4 Mag-11.8 DVT Prophylaxis SCDs low Platelets Opiate Usage / Scheduled Bowel Regimen Ordered No No Plt/SCr for Heparin / Enoxaparin Plts-40 SCr-0.94 INR for Warfarin inr-1.4 H/H stable, WBC/Bands H&H-9.4/28.3 WBC- 0.84 Antibiotic appropriateness none Cultures and Sensitivities none Surgical ABX d/c within 24 hr na DM control / Insulin Dosing BG-103 on Aspart Heart Failure (Check EF%) (NUBIA's, B-Block, Diuretics) Coreg, IV to PO Switch No Home Meds Reviewed Yes Home Meds Not Ordered all ordered Comments
[2019-03-05] MEDS: Carvedilol 3.125 MG TAB PO (09:13)
--- NOTE | 2019-03-05 11:11 | W.PM.DS.N ---
DS: Diagnosis Discharge Diagnosis (1) Emesis, persistent: Start date: 03/05/19 Start time: 11:11 Status: Acute Asessment and Plan: Resolved. Continue to drink plenty of fluids. (2) Viral gastroenteritis: Start date: 03/05/19 Start time: 11:12 Status: Acute Asessment and Plan: Continue to eat plain food and advance as tolerated. (3) Influenza: Start date: 03/05/19 Start time: 11:12 Status: Resolved Asessment and Plan: Incidental finding on last admission, finished full course of tamiflu and not respiratory symptoms while observed. Discharge Plan Disposition Patient Disposition: HOME Condition: Improving Discharge Details Chief Complaint: Nausea/Vomit/Diar Clinical Impression: Gastroenteritis Reason For Visit: INTRACTIBLE EMESIS, VIRAL GASTROENTERITIS Admit Date/Time: 03/04/19 19:25 Admit Provider: Andrea Tomas Attending Provider: Andrea Tomas Primary Care Provider: Joanne Riggins ED Provider: Pramod Pruitt Hospital Course Hospital Course: 78-year-old gentleman who lives alone with Parkinson's disease, cirrhosis of liver with portal hypertension and MGUS and pancytopenia thought to be secondary to liver cirrhosis and splenic sequestration admitted to [facility] obs for nausea and vomiting thought to be viral gastroenteritis. No pain. Vomiting has subsided. Hydrated overnight with IVF. Tolerating clears and no diarrhea. He feels nausea off and on, but that is not new for him. He is neutropenic which is not a new finding for him and feeling well enough to go home. He is being discharged home with zofran and pepcid. He denies CP, SOB, N/V/D. Home Meds and New Rx's Prescriptions: New ondansetron HCl [Zofran] 4 mg tablet 4 mg PO Q8H PRN (Reason: nausea and vomiting) Qty: 10 RF: 0 famotidine [Pepcid] 20 mg tablet 20 mg PO DAILY Qty: 10 RF: 0 Continued tramadol 50 mg tablet 25 mg PO DAILY RF: 0 melatonin 5 MG tablet 10 mg PO HS RF: 0 carbidopa-levodopa 25-100 mg tablet extended release 2 tab PO QID Qty: 240 RF: 11 pantoprazole 40 MG tablet,delayed release (DR/EC) 40 mg PO DAILY RF: 0 carvedilol 3.125 MG tablet 3.125 mg PO BID RF: 0 magnesium oxide 250 mg magnesium tablet 250 mg PO DAILY RF: 0 Discharge Instructions Instructions: Gastritis (DC), Diet for Stomach Ulcers and Gastritis (GEN) Additional Instructions: Take pepcid to help with gastritis. Take Zofran if you feel nauseated. Drink plenty of fluids Advance diet as tolerated. You may want to stick to a bland diet for a couple of days. Activity:: Activity as Tolerated Equipment/Supplies:: No Equipment Needed Diet:: Carb Counting Discharge Orders Discharge Orders: Discharge Order (Routine); Ordered 03/05/19 Ordered By: Anabelle Tinoco DS: Summary Status at Discharge Functional status at discharge: independent ambulation Overall status at discharge: patient is back to baseline Mental Status: mental status grossly normal Speech and Movement: speech and movement normal Mood: congruent mood Affect: normal affect Exam Narrative Exam Narrative: General: The patient appears appropriate for age but chronically ill, flattened affect with masklike facies with his Parkinson's disease, alert and oriented to person and place at least. HEENT: Normocephalic with balding, masklike facies as mentioned, eyes with pupils equal and reactive to light symmetrically with extraocular movement intact and sclera anicteric. Oropharynx with dry oral mucosa. External ears normal. Neck: Supple without JVD or bruits. Back: Stooped posture with no CVA tenderness. Heart: Regular rate and rhythm with no murmurs or gallops appreciated. Abdomen: Obese contour, well-healed midline scar, no palpable hepatosplenomegaly and no focal guarding or tenderness. Soft to palpation. Bowel sounds are hyperactive and positive in all quadrants. Extremities: Nonpitting edema lower extremities with loss of hair over both legs, no cyanosis or clubbing. Chronic arthritic changes over most joints with no swelling. Skin: Pale, warm and dry. Some bruising over his upper extremities which appears old. No rashes. Neuro: Cranial nerves II through XII grossly intact, motor intact with no focalizing. No tremor noted but some increased muscle rigidity. Psych: Flattened affect with little variation with his Parkinson's disease, remote memory intact and recent memory appear to be intact. Mood appears slightly agitated. Psych Mental Status: mental status grossly normal Speech and Movement: speech and movement normal Mood: congruent mood Affect: normal affect DS: Data Vitals/I&O Vitals and I&O: Vital Signs Temperature 36.5 C 03/05/19 07:54 Temperature Source Temporal Artery Scan 03/05/19 07:54 Pulse 60 03/05/19 07:54 Pulse Rhythm Regular 03/05/19 03:16 Pulse 64 03/04/19 18:21 Respiratory Rate 16 03/05/19 07:54 Respiratory Effort Non-Labored 03/05/19 03:16 Respiratory Depth Normal 03/05/19 03:16 Respiratory Pattern Normal 03/05/19 03:16 Blood Pressure 173/76 H 03/05/19 07:54 Blood Pressure Mean 89 03/04/19 18:45 Blood Pressure Position Supine 03/04/19 14:46 Pulse Oximetry 99 03/05/19 08:40 Oxygen Delivery Method Room Air 03/05/19 08:40 Oxygen Flow Rate 0 03/05/19 08:40 Pain Level 0 03/05/19 07:54 Comment 03/04/19 20:37 Intake & Output 03/04/19 03/04/19 03/05/19 11:59 23:59 11:59 Intake Total 1868.75 / 1868.75 918.75 / 918.75 Output Total 450 / 450 Balance 1868.75 / 1868.75 468.75 / 468.75 Weight 84.3 kg 90.8 kg Intake: IV 1868.75 / 1868.75 918.75 / 918.75 Output: Urine 450 / 450 Other: Urine Color Yellow Urine Appearance Clear Clear Urine Odor Normal Stool Size Moderate Smear Stool Characteristics Liquid Brown Emesis Description Undigested Food Voiding Methods Toilet Data Completed and Pending Completed studies during hospitalization [Text1]: CT CHEST/ABD/PEL W 01/27/2019 09:46 FINDINGS: Lungs: Opacities left greater than right lung base, increased from prior, however predominantly linear and subpleural most suggestive of subsegmental atelectasis. Mediastinum: Small hiatal hernia. Liver: Cirrhosis. . Subcapsular hypodensity in the right lobe of the liver similar to the previous study appears cystic. A hazy area of low attenuation in the tip of the liver approximately 45 mm is similar and could reflect a mass lesion including hepatocellular carcinoma. Multiphasic imaging would be recommended for full characterization. Gallbladder and bile ducts: Cholecystectomy Pancreas: While cystic structure in the pancreatic head is stable. Follow-up as per institutional protocol. No pancreatic ductal dilation. Spleen: Splenomegaly again seen. Adrenals: No mass. Kidneys and ureters: Bilateral renal stones are seen without obstruction. A large benign-appearing right renal cyst. No renal masses. Stomach and bowel: Post surgical changes in the right colon. Grossly normal anastomosis. No acute pathology in the small bowel. No convincing colitis for the degree of distention. Scattered diverticula with no inflammation. Appendix: No evidence of appendicitis. Intraperitoneal space: Small amount of pelvic free fluid similar to prior. Slightly decreased small abdominal ascites. Vasculature: Enlarged patent portal venous system similar to prior. Upper abdominal venous varices again seen. Mild dilation of the infrarenal aorta. No evidence of rupture. Lymph nodes: No significantly enlarged lymph nodes. Bladder: Unremarkable as visualized. Reproductive: Metallic beads in the region of the prostate gland. Bones/joints: The bones are demineralized. Degenerative changes in the spine. A chronic moderate compression deformity of L3. No acute fracture or subluxation. Nonacute rib fractures. Soft tissues: Tiny fat-containing umbilical hernia. Left upper abdominal hernia containing fat and mesenteric vasculature similar to the previous study. A thickened appearance of the midline rectus sheath and linea alba in the mid abdomen is similar to the previous study, there is not definitely masslike, question scarring. Clips or coils in the right inguinal canal. A ventral abdominal mesh is likely present. IMPRESSION: 1. No acute findings. 2. Cirrhosis. Splenomegaly. Portal hypertension. 3. Slightly decreased small abdominal ascites. Stable small pelvic ascites. 4. Additional findings as described are similar to the prior study. Labs on day of discharge: Labs from last 24 hours 03/05/19 03/05/19 03/04/19 06:08 06:08 18:28 WBC 0.84 L* D RBC 3.16 L Hgb 9.4 L Hct 28.3 L MCV 89.6 MCH 29.7 MCHC 33.2 RDW 15.5 H Plt Count 40 L MPV 11.1 H Immature Gran % 0.0 Neutrophils % 50.0 Lymphocytes % 36.0 Monocytes % 12.0 Eosinophils % 2.0 Basophils % 0.0 Absolute Neutrophils 0.42 L* Absolute Lymphocytes 0.30 L Absolute Monocytes 0.10 L Absolute Eosinophils 0.02 Absolute Basophils 0.00 Differential Comment Manual differential RBC Morphology See below Polychromasia Present Poikilocytosis 1+ Anisocytosis 1+ Ovalocytes PT INR Sodium 143 Potassium 4.4 Chloride 111 H Carbon Dioxide 26.8 Anion Gap 5.2 BUN 8 Creatinine 0.94 Estimated GFR/1.73 m2 >= 60.00 Glucose 103 D Calcium 8.1 L Magnesium Total Bilirubin 1.3 H AST 29 ALT < 6 L Alkaline Phosphatase 130 H Total Protein 5.5 L Albumin 2.5 L Urine Color Vi Urine Clarity Clear Urine pH 6.0 Ur Specific [place] 1.025 Urine Protein Negative Urine Ketones Negative Urine Blood Moderate H Urine Nitrite Negative Urine Bilirubin Negative Urine Urobilinogen 0.2 Ur Leukocyte Esterase Negative Urine RBC 3-5 H Urine WBC 0-2 Ur Epithelial Cells Few Urine Crystals Negative Urine Bacteria Rare Urine Casts Negative Urine Mucus Trace Urine Other Few yeast Ur Culture Indicated? No Urine Glucose Negative 03/04/19 03/04/19 03/04/19 15:00 15:00 15:00 WBC 1.65 L* RBC 3.39 L Hgb 10.2 L Hct 30.3 L MCV 89.4 MCH 30.1 MCHC 33.7 RDW 15.6 H Plt Count 54 L MPV 10.4 Immature Gran % 0.0 Neutrophils % 64.9 Lymphocytes % 18.8 Monocytes % 11.5 Eosinophils % 4.2 Basophils % 0.6 Absolute Neutrophils 1.07 L Absolute Lymphocytes 0.31 L Absolute Monocytes 0.19 Absolute Eosinophils 0.07 Absolute Basophils 0.01 Differential Comment Diff reviewed RBC Morphology See below Polychromasia Poikilocytosis Anisocytosis 1+ Ovalocytes 2+ PT 13.8 H INR 1.4 H Sodium 140 Potassium 4.4 Chloride 107 Carbon Dioxide 27.6 Anion Gap 5.4 BUN 11 Creatinine 0.89 Estimated GFR/1.73 m2 >= 60.00 Glucose 204 H Calcium 8.2 L Magnesium 1.8 Total Bilirubin 1.3 H AST 28 ALT < 6 L Alkaline Phosphatase 156 H Total Protein 6.4 Albumin 2.8 L Urine Color Urine Clarity Urine pH Ur Specific [place] Urine Protein Urine Ketones Urine Blood Urine Nitrite Urine Bilirubin Urine Urobilinogen Ur Leukocyte Esterase Urine RBC Urine WBC Ur Epithelial Cells Urine Crystals Urine Bacteria Urine Casts Urine Mucus Urine Other Ur Culture Indicated? Urine Glucose PFSH Medical History Anxiety (Chronic) Cirrhosis of liver (Chronic) On beta blockers; Under care of Dr. Joe. Colon cancer (Chronic) Multiple polypectomies. 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 Liver cirrhosis MGUS (monoclonal gammopathy of unknown significance) (Chronic) Mild cognitive impairment (Acute 08/17/15) HANS (obstructive sleep apnea) Pancytopenia (Chronic) Thought to be secondary to liver cirrhosis and splenic sequestratioin. Please note bone marrow biopsy was negative. Parkinson disease Perirectal abscess (Resolved) Prostate cancer (Chronic 05/24/02) S/P radiation, Lupron, now on Zoladex. Restless leg syndrome (Acute 10/24/16) Streptococcal bacteremia (Resolved) s/p removal of buried central venous access device. no bleeding. no pain. cont care. Tubulovillous adenoma of colon (Resolved 11/21/15) Ventral hernia (Chronic) Visual hallucination (Inactive) Surgical History BONE MARROW BIOPSY (11/25/14) LISSET Colectomy 1992 colonoscopy (11/21/15) H/O ventral hernia repair (Chronic) History of bowel resection (Chronic) History of Leonid fundoplication (Chronic) S/P cholecystectomy (Acute) S/P ear surgery (Acute) Family History Maternal Cousin Colon cancer Maternal Cousin Colon cancer Mother Cervical cancer Social History Smoking/Tobacco Use Status: Former Tobacco Use Quit Date: 06/17/94 Pack-years: 35 Second Hand Exposure: No Alcohol Intake: former Drug use: Never Household members: none Housing: apartment current occupation: Retired Seatbelt use: always Do you feel safe at home: Yes Do you feel safe in your relationship?: Yes Additional Social history: drinks < 1/month
[2019-03-05 11:25] VITALS: BP 143/75; PULSE 65; RESP 19; TEMP 36.7; O2SAT 99
[2019-03-05] MEDS: Insulin Aspart 300 UNITS/3 ML PEN SC (11:57)
[2019-03-05] MEDS: Pantoprazole 40 MG TABCR PO (11:57)
[2019-03-05] MEDS: traMADol 50 MG TAB 25 MG PO (12:23)
--- NOTE | 2019-03-05 12:36 | CMDISCH_ITS ---
- If Service Date Differs Date of service: 03/05/19 Time of Service: 12:36 LACE Index Scoring Tool - Questions: Length of Stay (in days): 2 Acuity (Admit via E.D.?): Yes Comorbidities: Diabetes w/o Complication, Liver or Renal Disease E.D. Visits: 7 - Answers: Total Score: 14 Risk of Readmission: High Risk Care Management Discharge Reason for Hospitalization: Intractible emesis, viral gastroenteritis Discharge Plan: Drake will return home with a resumption of [facility] Moderate needs, 4 hrs a week. CM spoke with Stacie Sifuentes, his community health agent through [facility], who confirmed his [facility] service. Drake expressed that he would prefer more help at home, but declined a short rehab stay. CM discussed his desire for more assistance with his community health agent. CM coordinated [facility] wheelchair van for transportation home. Drake reported that he gets his medications delivered to him, and he wouldn't be able to get new ones until Friday. CM asked the provider to provide him with enough to get through the weekend, which was successful. He will follow up with his PCP, as recommended. Patient/Family Education Needs: Review discharge instructions regarding medications and activity levels, discussion of self care including Ask Me Three Services Needed at Discharge: Homemaking Services (C Moderate needs), Transportation ([facility] W/C van)
--- NOTE | 2019-03-05 12:42 | W.NUTCONSULT ---
Date of service: 03/05/19 Time of Service: 12:42 Nutritional Consult ASSESSMENT: 78 yo male admitted with uncontrolled emesis most likely attributal to viral gastroenterities. Followed by CDE in outpatient clinic with good blood sugar control. PMH: liver cirrohsis, NIDDM, colon cancer. Has been advanced to full liquids with good intake. Have noted low WBC, recommend neutrapenic diet. Will provide with neutropenic diet recommendations for discharge. INTERVENTION: educate on neutrapenic diet MONITORING AND EVALUATION: po intake, weight and diet advancement Time Spent in Nutritional Counseling and Treatment: 0 time spent face to face
--- NOTE | 2019-03-05 12:53 | INITIAL_ITS ---
- If Service Date Differs Date of service: 03/05/19 Time of Service: 12:53 Care Management Initial Assess REASON FOR HOSPITALIZATION:: Intractible emesis, viral gastroenteritis PAST MEDICAL HISTORY/PAST SURGICAL HISTORY:: Medical History. Anxiety (Chronic). Cirrhosis of liver (Chronic). On beta blockers; Under care of Dr. Joe. Colon cancer (Chronic). Multiple polypectomies. DM (diabetes mellitus). Esophageal varices (Chronic). GERD (gastroesophageal reflux disease). 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 HTN (hypertension). Hyperlipidemia (Acute). IBS (irritable bowel syndrome). Iron deficiency (Chronic). CBcs and VBenofer on a regular basis. Liver cirrhosis. MGUS (monoclonal gammopathy of unknown significance) (Chronic). Mild cognitive impairment (Acute 08/17/15). HANS (obstructive sleep apnea). Pancytopenia (Chronic). Thought to be secondary to liver cirrhosis and splenic sequestratioin. Please note bone marrow biopsy was negative. Parkinson disease. Perirectal abscess (Resolved). Prostate cancer (Chronic 05/24/02). S/P radiation, Lupron, now on Zoladex. Restless leg syndrome (Acute 10/24/16). Streptococcal bacteremia (Resolved). s/p removal of buried central venous access device. no bleeding. no pain. cont care. Tubulovillous adenoma of colon (Resolved 11/21/15). Ventral hernia (Chronic). Visual hallucination (Inactive). Surgical History. BONE MARROW BIOPSY (11/25/14). LISSET. Colectomy. 1992. colonoscopy (11/21/15). H/O ventral hernia repair (Chronic). History of bowel resection (Chronic). History of Leonid fundoplication (Chronic). S/P cholecystectomy (Acute). S/P ear surgery (Acute) PREVIOUS FUNCTIONAL STATUS/SOCIAL/FAMILY SUPPORTS:: Drake lives at the [facility] alone. His , Gregoria is a resident at [facility] and he visits her regularly. He has a daughter Annabelle, and a step daughter Nara who are both identified as supports. He does not drive, and relys on [facility] for transportation. CURRENT FUNCTIONAL STATUS:: Drake was sitting up in his chair when met with him. He was engaged in conversation and was concerned about how much help he has in his home. He reported that he was told that he would have 6 hrs a day of private care approved by his community development officer, Stacie Sifuentes from [facility]. CM called Stacie, who reported that he has been approved for 6 hrs/week, but there are only resources for him to receive 4 hrs/week. Drake was also concerned about being able to get his medications, as they are delivered to him. CM ensured that he would have enough going home in order to get him through the weekend. Per provider, Drake will return home today. CM will continue to follow. ADVANCE DIRECTIVES:: On file, Annabelle, daughter, listed as agent. Nara, step sebastian bolaer, listed as alternate agent. Has patient been provided with information about the portal?: No Did the patient sign up for the portal?: No CODE STATUS:: DNR/DNI (Colst on file) CODE STATUS COMMENT:: Drake is listed as Full Code, but his COLST form is on file, which is the most recent form, which states DNR/DNI. The dates that the AD and COLST were uploaded, is NOT the date that they were signed. COLST is most recent document. INSURANCE COVERAGE / FINANCIAL ISSUES:: [facility]/[employer]/[facility] HMO/[employer], Plan J/Fin Assist 100% CURRENT HOME/COMMUNITY SERVICES/EQUIPMENT:: Drake lives at the [facility], where there is a meal site. He relys on [facility] for transportation. He has a homemaker through [facility] moderate needs. He also owns a CPAP, wheelchair, motorized wheelchair, FWW, raised toilet seat, and shower chair. PRIMARY CARE PHYSICIAN:: Joanne Riggins POTENTIAL DISCHARGE NEEDS:: Evalutation for further needs, follow up appointments PATIENT/FAMILY EDUCATION NEEDS:: Review discharge instructions, discussion of self care needs ANTICIPATED BARRIERS TO DISCHARGE:: None identified at this time. TRANSPORTATION:: [facility] transportation, coordinated by CM PLAN:: Anticipate Drake will return home once medically stable with a resumption of [facility] moderate needs. His senior case manager, Stacie Sifuentes, from [facility] will follow him in the community. He will follow up with his PCP, as recommended. CM will coordinate [facility] transportation for him to return. CM will continue to follow.
--- NOTE | 2019-03-05 13:24 | W.NUTRFU ---
Date of service: 03/05/19 Time of Service: 13:24 Nutritional Follow up NOTE: provided education on food safety prior to leaving today. Drake does his own cooking and aware of pathogens in food and need for extra care when preparing and eating with lowered wBC count. contact information provided for follow up if needed. Time Spent in Nutritional Counseling and Treatment: 10 min spent face to face
== END 2019-03-05 13:21 | disposition home or self-care (01) ==
LOC: ER 19:57 → MS 20:24
PROVIDERS: Admitting Provider Family Medicine; Emergency Provider Emergency Medicine; PCP Nurse Practitioner Family; Visit Provider Internal Medicine
DX: A08.4 Viral intestinal infection, unspecified (principal); G20 Parkinson's disease; D61.818 Other pancytopenia; D47.2 Monoclonal gammopathy; E11.9 Type 2 diabetes mellitus without complications; K21.9 Gastro-esophageal reflux disease without esophagitis
CPT/HCPCS: 36415; 80053; 85027; 96361; 96374; 96376; 99220; 99239; 99285; 74177; 81003; 81015; 83735; 85007; 85025; 85610; 99217; G0378; J2405; J3490; J8597

== ENCOUNTER 2019-03-09 01:14 | Outpatient (RCR) | payer OTHER, SELFPAY ==
[2019-02-23] MEDS: IRON SUCROSE COMPLEX 200 MG in Normal Saline 100 ML 440 MG IVPB (07:42)
[2019-02-23] MEDS: Normal Saline Flush 10 ML SYR IVP (07:42)
[2019-03-02] MEDS: Normal Saline Flush 10 ML SYR IVP (07:40)
[2019-03-02] MEDS: IRON SUCROSE COMPLEX 200 MG in Normal Saline 100 ML 440 MG IVPB (07:40)
[2019-03-09] MEDS: IRON SUCROSE COMPLEX 200 MG in Normal Saline 100 ML 440 MG IVPB (07:48)
[2019-03-09] MEDS: Normal Saline Flush 10 ML SYR IVP (07:49)
== END 2019-03-19 23:59 | disposition home or self-care (01) ==
LOC: INF 01:14
PROVIDERS: PCP Nurse Practitioner Family; Visit Provider Family Medicine
DX: D50.9 Iron deficiency anemia, unspecified
CPT/HCPCS: 96365; J1756

== ENCOUNTER 2019-03-30 01:45 | Outpatient (RCR) | payer OTHER, SELFPAY ==
[2019-03-30 07:44] LABS: Absolute Basophil Count 0.01 k/cumm (0.0-0.2); Absolute Eosinophil Count 0.07 k/cumm (0.0-0.7); Absolute Lymphocyte Count 0.25 k/cumm (1.2-3.4); Absolute Monocyte Count 0.21 k/cumm (0.11-0.7); Absolute Neutrophil Count 1.12 k/cumm (1.2-6.7); Basophils % 0.6; Eosinophils % 4.2; HCT 31.3 % (40.0-50.0); HGB 10.5 g/dL (13.5-17.5); Lymphocytes % 15.1; Mean Corp. HGB Concentration 33.5 g/dL (32.0-36.0); Mean Corpuscular Hemoglobin 30.3 pg (27.0-33.0); Mean Corpuscular Volume 90.2 fL (80-95); Mean Platelet Volume 10.3 fL (8.0-11.0); Monocytes % 12.7; Neutrophils % 67.4; Platelet Count 54 x1000/uL (130-400); RBC 3.47 m/cumm (4.50-6.00); RBC Distribution Width 15.7 % (11.8-14.1)
[2019-03-30 08:00] LABS: ALT 7 U/L (16-63); AST 39 U/L (15-37); Albumin 2.9 g/dL (3.4-5.0); Alkaline Phosphatase 186 U/L (46-116); BUN 10 mg/dL (7-18); CREATININE 0.83 mg/dL (0.70-1.30); Calcium 7.9 mg/dL (8.5-10.1); Chloride 107 mmol/L (98-107); Glucose 166 mg/dL (74-106); Potassium 4.1 mmol/L (3.5-5.1); Sodium 138 mmol/L (136-145); Total Protein 6.4 g/dL (6.4-8.2)
[2019-03-30 08:08] LABS: White Blood Cell Count 1.66 k/cumm (4.4-10.8)
[2019-03-30 08:09] LABS: Anisocytosis 1+; Diff Comment Diff Reviewed; Ovalocytes 2+
[2019-03-30 08:10] LABS: Poikilocytes 1+
[2019-03-30 08:32] LABS: Ferritin 183 ng/mL (26-388)
[2019-04-27 07:23] LABS: Absolute Basophil Count 0.01 k/cumm (0.0-0.2); Absolute Eosinophil Count 0.09 k/cumm (0.0-0.7); Absolute Monocyte Count 0.15 k/cumm (0.11-0.7); Absolute Neutrophil Count 0.93 k/cumm (1.2-6.7); Basophils % 0.7; Eosinophils % 6.5; HGB 10.3 g/dL (13.5-17.5); Lymphocytes % 14.5; Mean Corp. HGB Concentration 33.2 g/dL (32.0-36.0); Mean Corpuscular Hemoglobin 30.2 pg (27.0-33.0); Mean Corpuscular Volume 90.9 fL (80-95); Mean Platelet Volume 10.6 fL (8.0-11.0); Monocytes % 10.9; Neutrophils % 67.4; RBC 3.41 m/cumm (4.50-6.00); RBC Distribution Width 14.9 % (11.8-14.1)
[2019-04-27 07:45] LABS: ALT 9 U/L (16-63); AST 25 U/L (15-37); Alkaline Phosphatase 186 U/L (46-116); BUN 12 mg/dL (7-18); Bilirubin, Total 1.3 mg/dL (0.2-1.0); CREATININE 0.85 mg/dL (0.70-1.30); Calcium 8.1 mg/dL (8.5-10.1); Chloride 107 mmol/L (98-107); Ferritin 121 ng/mL (26-388); Glucose 236 mg/dL (74-106); Potassium 3.9 mmol/L (3.5-5.1); Sodium 141 mmol/L (136-145); Total Protein 6.6 g/dL (6.4-8.2)
[2019-04-27 07:51] LABS: Platelet Count 43 x1000/uL (130-400)
[2019-04-27 07:52] LABS: Diff Comment Agrees w/ Instrument; Hypochromasia 2+; Polychromasia Present
[2019-04-27 07:53] LABS: Poikilocytes 3+
[2019-04-27 08:18] LABS: White Blood Cell Count 1.38 k/cumm (4.4-10.8)
[2019-04-28 10:48] LABS: PSA, Diagnostic 29.3 ng/mL (0.0-6.5)
== END 2019-04-17 23:59 | disposition home or self-care (01) ==
LOC: INF 01:45
PROVIDERS: Internal Medicine; PCP Nurse Practitioner Family; Visit Provider Family Medicine
DX: D50.0 Iron deficiency anemia secondary to blood loss (chronic) (principal); D47.2 Monoclonal gammopathy
CPT/HCPCS: 36415; 80053; 86900; 86901; 99214; 82728; 84153; 85025

== ENCOUNTER 2019-04-27 15:33 | Outpatient (RCR) | payer OTHER, SELFPAY | END 2019-05-18 23:59 | disposition home or self-care (01) | LOC: INF 15:33 | PROVIDERS: PCP Nurse Practitioner Family; Visit Provider Family Medicine | DX: D50.0 Iron deficiency anemia secondary to blood loss (chronic) (principal); C61 Malignant neoplasm of prostate ==

== ENCOUNTER 2019-05-21 00:48 | Outpatient (RCR) | payer OTHER, SELFPAY ==
[2019-05-21 08:12] LABS: Abs Immature Grans 0.01 k/cumm (0.0-0.09); Absolute Lymphocyte Count 0.22 k/cumm (1.2-3.4); HCT 30.1 % (40.0-50.0); HGB 10.1 g/dL (13.5-17.5); Mean Corp. HGB Concentration 33.6 g/dL (32.0-36.0); Mean Corpuscular Hemoglobin 30.1 pg (27.0-33.0); Mean Corpuscular Volume 89.9 fL (80-95); Mean Platelet Volume 10.7 fL (8.0-11.0); Platelet Count 42 x1000/uL (130-400); RBC 3.35 m/cumm (4.50-6.00); RBC Distribution Width 14.5 % (11.8-14.1)
[2019-05-21 08:36] LABS: White Blood Cell Count 1.49 k/cumm (4.4-10.8)
[2019-05-21 08:38] LABS: Absolute Basophil Count 0.03 k/cumm (0.0-0.2); Absolute Eosinophil Count 0.09 k/cumm (0.0-0.7); Absolute Monocyte Count 0.09 k/cumm (0.11-0.7); Absolute Neutrophil Count 1.06 k/cumm (1.2-6.7); Diff Comment Manual Differential
[2019-05-21 08:40] LABS: Poikilocytes 1+
== END 2019-06-17 23:59 | disposition home or self-care (01) ==
LOC: INF 00:48
PROVIDERS: PCP Nurse Practitioner Family; Visit Provider Internal Medicine
DX: D50.0 Iron deficiency anemia secondary to blood loss (chronic) (principal); D47.2 Monoclonal gammopathy; C61 Malignant neoplasm of prostate
CPT/HCPCS: 36415; 80053; 82784; 82728; 83883; 84153; 84165; 85025

== ENCOUNTER 2019-06-25 07:07 | Outpatient (RCR) | payer OTHER, SELFPAY ==
[2019-06-25 07:29] LABS: Abs Immature Grans 0.01 k/cumm (0.0-0.09); Absolute Eosinophil Count 0.13 k/cumm (0.0-0.7); Absolute Lymphocyte Count 0.27 k/cumm (1.2-3.4); Absolute Monocyte Count 0.19 k/cumm (0.11-0.7); Absolute Neutrophil Count 0.96 k/cumm (1.2-6.7); Eosinophils % 8.3; HCT 31.8 % (40.0-50.0); HGB 10.7 g/dL (13.5-17.5); Immature Grans % 0.6 %; Lymphocytes % 17.3; Mean Corp. HGB Concentration 33.6 g/dL (32.0-36.0); Mean Corpuscular Volume 89.1 fL (80-95); Mean Platelet Volume 10.7 fL (8.0-11.0); Monocytes % 12.2; Neutrophils % 61.6; RBC 3.57 m/cumm (4.50-6.00); RBC Distribution Width 14.9 % (11.8-14.1)
[2019-06-25 08:10] LABS: White Blood Cell Count 1.56 k/cumm (4.4-10.8)
[2019-06-25 08:11] LABS: Diff Comment Agrees w/ Instrument; Ovalocytes 2+; Platelet Count 47 x1000/uL (130-400)
[2019-06-25 09:28] LABS: ALT 8 U/L (16-63); AST 32 U/L (15-37); Albumin 3.2 g/dL (3.4-5.0); Alkaline Phosphatase 159 U/L (46-116); Anion Gap 5.7 mmol/L (3-11); BUN 13 mg/dL (7-18); Bilirubin, Total 1.3 mg/dL (0.2-1.0); CO2 26.3 mmol/L (21.0-32.0); CREATININE 0.85 mg/dL (0.70-1.30); Calcium 8.4 mg/dL (8.5-10.1); Chloride 106 mmol/L (98-107); Ferritin 76 ng/mL (26-388); Glucose 141 mg/dL (74-106); Potassium 4.2 mmol/L (3.5-5.1); Sodium 138 mmol/L (136-145); Total Protein 6.9 g/dL (6.4-8.2)
[2019-06-27 11:49] LABS: Testosterone, Total 71 ng/dL (240-950)
[2019-06-28 08:35] LABS: PSA, Diagnostic 31.5 ng/mL (0.0-6.5)
[2019-06-28 12:05] LABS: IgA 457 mg/dL (85-499); IgG 1490 mg/dL (610-1,616); IgM 44 mg/dL (35-242); Kappa Free Light Chain 5.31 mg/dL (0.33-1.94); Lambda Free Light Chain 3.52 mg/dL (0.57-2.63)
[2019-06-28 12:46] LABS: Albumin 52.5 % (55.8-66.1); Comment (See Note); Monoclonal Spike 8.6 % (None Seen); Total Protein 6.3 g/dL (6.3-8.2)
== END 2019-07-18 23:59 | disposition home or self-care (01) ==
LOC: INF 07:07
PROVIDERS: PCP Nurse Practitioner Family; Visit Provider Internal Medicine
DX: D50.0 Iron deficiency anemia secondary to blood loss (chronic) (principal)
CPT/HCPCS: 36415; 80053; 82784; 84403; 86900; 86901; 82728; 83883; 84153; 84165; 85025

== ENCOUNTER → 2019-07-27 08:04 | Outpatient (BNVA) | payer OTHER, SELFPAY | PROVIDERS: PCP Nurse Practitioner Family; Referring Provider Nurse Practitioner Family; Visit Provider Psychiatry & Neurology Neurology | DX: G20 Parkinson's disease (principal); G25.81 Restless legs syndrome; K11.7 Disturbances of salivary secretion; R39.15 Urgency of urination; R44.1 Visual hallucinations; I10 Essential (primary) hypertension; E11.9 Type 2 diabetes mellitus without complications | CPT/HCPCS: 99214 ==

== ENCOUNTER 2019-08-10 00:48 | Outpatient (RCR) | payer OTHER, SELFPAY ==
[2019-07-30 09:57] LABS: Hemoglobin A1C 6.6 % (3.8-5.6)
[2019-07-30 20:44] LABS: NT-proBNP 136 pg/mL (<300)
[2019-08-10 07:31] LABS: Abs Immature Grans 0.01 k/cumm (0.0-0.09); HGB 10.6 g/dL (13.5-17.5); Mean Corp. HGB Concentration 33.1 g/dL (32.0-36.0); Mean Corpuscular Hemoglobin 29.7 pg (27.0-33.0); Mean Corpuscular Volume 89.6 fL (80-95); Mean Platelet Volume 11.1 fL (8.0-11.0); RBC 3.57 m/cumm (4.50-6.00); RBC Distribution Width 15.1 % (11.8-14.1)
[2019-08-10 08:19] LABS: Absolute Lymphocyte Count 0.28 k/cumm (1.2-3.4); Absolute Neutrophil Count 1.09 k/cumm (1.2-6.7); Atypical Lymphocytes % 1
[2019-08-10 08:20] LABS: Absolute Basophil Count 0.05 k/cumm (0.0-0.2); Absolute Eosinophil Count 0.08 k/cumm (0.0-0.7); Absolute Monocyte Count 0.12 k/cumm (0.11-0.7)
[2019-08-10 08:21] LABS: Platelet Count 39 x1000/uL (130-400)
[2019-08-10 08:23] LABS: White Blood Cell Count 1.65 k/cumm (4.4-10.8)
[2019-08-10 08:32] LABS: Diff Comment Manual Differential; RBC Morphology Normal
== END 2019-08-17 23:59 | disposition home or self-care (01) ==
LOC: INF 00:48
PROVIDERS: PCP Nurse Practitioner Family; Visit Provider Internal Medicine
DX: D50.0 Iron deficiency anemia secondary to blood loss (chronic) (principal); R06.89 Other abnormalities of breathing; Z91.81 History of falling; E11.9 Type 2 diabetes mellitus without complications
CPT/HCPCS: 36415; 86900; 86901; 83036; 83880; 85025

== ENCOUNTER 2019-09-17 04:27 | Outpatient (RCR) | payer OTHER, SELFPAY ==
[2019-09-17 07:24] LABS: Abs Immature Grans 0.01 10^3/uL (0.0-0.06); Absolute Basophil Count 0.01 10^3/uL (0.0-0.2); Absolute Eosinophil Count 0.08 10^3/uL (0.0-0.7); Absolute Lymphocyte Count 0.21 10^3/uL (1.2-3.4); Absolute Monocyte Count 0.14 10^3/uL (0.1-0.8); Absolute Neutrophil Count 0.75 10^3/uL (1.2-6.7); Basophils % 0.8; Eosinophils % 6.7; HCT 30.5 % (40.0-50.0); HGB 10.2 g/dL (13.5-17.5); Immature Grans % 0.8; Lymphocytes % 17.5; MCH 30.2 pg (27.0-33.0); MCHC 33.4 % (32.0-36.0); MCV 90.2 fL (80-95); MPV 11.6 fL (8.0-11.0); Monocytes % 11.7; Neutrophils % 62.5; Platelet Count 32 10^3/uL (130-400); RBC 3.38 10^6/uL (4.36-5.78); RDW 15.4 % (11.8-14.1); RDW-SD 50.7 fL
[2019-09-17 07:51] LABS: ALT 7 U/L (16-63); AST 33 U/L (15-37); Albumin 2.9 g/dL (3.4-5.0); Alkaline Phosphatase 134 U/L (46-116); Anion Gap 6.3 mmol/L (3-11); BUN 12 mg/dL (7-18); Bilirubin, Total 1.2 mg/dL (0.2-1.0); CO2 24.7 mmol/L (21.0-32.0); CREATININE 0.83 mg/dL (0.70-1.30); Calcium 7.9 mg/dL (8.5-10.1); Chloride 107 mmol/L (98-107); Ferritin 61 ng/mL (26-388); Glucose 272 mg/dL (74-106); Potassium 3.9 mmol/L (3.5-5.1); Sodium 138 mmol/L (136-145); Total Protein 6.1 g/dL (6.4-8.2)
[2019-09-17 08:10] LABS: Diff Comment Diff Reviewed; Ovalocytes 2+
[2019-09-21 15:02] LABS: Testosterone, Free 0.21 ng/dL (3.08-11.3); Testosterone, Total 21 ng/dL (240-950)
== END 2019-09-17 23:59 | disposition home or self-care (01) ==
LOC: INF 04:27
PROVIDERS: PCP Nurse Practitioner Family; Visit Provider Internal Medicine
DX: D50.9 Iron deficiency anemia, unspecified (principal); C61 Malignant neoplasm of prostate
CPT/HCPCS: 36415; 80053; 84402; 84403; 82728; 84153; 85025

== ENCOUNTER 2019-10-01 01:47 | Outpatient (CLI) | payer OTHER, SELFPAY ==
--- NOTE | 2019-10-01 | DI.RAD_ITS ---
EXAM: XR ANKLE RT COMPLETE CLINICAL HISTORY: RT ANKLE PAIN,M25.571, H/O FALL, MILD SWELLING, ? FX. TECHNIQUE: 2D digital imaging was performed. COMPARISON: No exams were available for comparison FINDINGS: BONES: No acute fracture is present. No bony destructive lesion is seen. Enthesophyte at the Lincoln s insertion site. Small calcaneal plantar spur. JOINTS: The ankle mortise is normally aligned. SOFT TISSUE: Soft tissue swelling particularly medially. IMPRESSION: 1. No acute fracture or dislocation 2. Soft tissue swelling. DATA REPOSITORY: RADIATION DOSE DELIVERED:
== END 2019-10-01 02:07 ==
PROVIDERS: PCP Nurse Practitioner Family; Visit Provider Nurse Practitioner Family
DX: M25.571 Pain in right ankle and joints of right foot (principal); M79.89 Other specified soft tissue disorders
CPT/HCPCS: 73610

== ENCOUNTER 2019-10-08 10:17 | Inpatient (IN) | payer OTHER, SELFPAY ==
[2019-10-08] VITALS (61 sets, daily range): BP systolic 129–166; BP diastolic 52–86; PULSE 54–94; RESP 10–24; TEMP 36.7–36.8; O2SAT 95–100
--- NOTE | 2019-10-08 10:13 | ED.GENADUL_ITS ---
Discharge Plan Disposition Patient Disposition: [facility] INPATIENT Condition: Fair Discharge Details Chief Complaint: Abd Prob Clinical Impression: Calculus of proximal right ureter Admit Date/Time: 10/09/19 18:30 Admit Provider: Noé Barrett Attending Provider: Noé Barrett Primary Care Provider: Joanne Riggins ED Provider: Katy Hallman Discharge Data Discharge Date/Time-TO BE ENTERED AT DEPARTURE: 10/08/19 19:20 Medical Decision Making <WELLINGTON Feliz - Last Filed: 10/12/19 00:16> Patient is a pleasant 79-year-old gentleman brought in via EMS with chief complaint of right-sided abdominal pain. He reports that he was trying to get out of his wheelchair while making cupcakes when he suddenly had onset of right- sided abdominal pain. No trauma. He has not had pain like this historically. Indicates the entirety of the right side of his abdomen is area discomfort. States he has had some nausea but no vomiting. Denies any pain radiating into his back. No pain rating into his lower extremities. Patient's not anticoagulated. Past medical history significant for cirrhosis, diabetes, esophageal varices, GERD, hypertension, hyperlipidemia, IBS, mild cognitive impairment, HANS, pancytopenia, Parkinson's, prostate cancer, adenoma of colon. Surgical history significant for colectomy, Leonid fundoplasty, cholecystectomy. On exam, patient appears to be comfortable. He is rating the pain a 10 on a 10. He has an enlarged soft areas centrally and patient does report that he is a hernia in this area under midline scar. However, he denies any pain over this. Is not firm or erythematous. Does not have hepatomegaly. No evidence of pain with palpation of the abdomen, no peritoneal findings. Concerned primarily for hernia given the patients sudden onset. Plan for labs and CT imaging. Labs reviewed. Patient is pancytopenic, baseline for the patient. Normal kidney function. No significant electrolyte abnormalities. Alk phos elevated at 178 which is baseline for the patient. Contacted by the radiologist, patient is a 5 mm stone at the ureteropelvic junction. Mild hydronephrosis. Will start patient on Flomax. Still waiting on UA. Urinalysis concerning for moderate bacteria, 10-20 WBCs #50 RBCs. No epithelial cells. With this, I am concerned for potential infection stone and will consult with urology. Our urology specialists are unavailable, will consult with urology at local hospitals. Contacted [facility], no beds available. Consulted with Dr. Maher with urology at [facility]. He reviewed imaging. Advised that with the patients pancytopenia, this patient should be admitted. However, with his pancytopenia and comorbidities, advised that patient should be admitted to medicine. Advised Rocephin for temporary measuring. He does not feel that patient needs a surgical intervention at this time. They do not have bed capability at this time. Consulted with Dr. Case at [facility]. He advised this patient does not need a stent. However, because of the pancytopenia and the gentleman's comorbidities do not feel that he was appropriate to be placed at their facility and advise higher level of care. Will consult with [facility]. Consulted with [facility] urology. He reviewed imaging. He does not feel that he needs to have an intervention. He is concerned that risks will outweigh the potential benefits as he will likely be able to pass the stone naturally. He measures the stone at 2mm. He advised that if the patient requires opiates he will require stenting. ADvised that if the patients pain cannot be controlled wth another dose of toradol to call back and they would accept. However, if the patient kandi improves, discharge home on diclofenac with f/u with urology next week. I was contacted by urology provider here, Gwen Holden, who advised patient would be able to remain inpatient here as her urologist is now back from vacation. She advised that patient could remain on the hospitalist service, continue to receive IV antibiotics and be evaluated by urology on Friday if stone has not passed. I discussed this with hospitalist. Patient is to be admitted for pain management and antibiotics concern for infected kidney stone. Stone is likely nonobstructive and should pass but urology is aware if stone needs surgical intervention. Spoke with hospitalist who agrees to admission. Nery has received pain medication, rocephin and flomax while here. <Vinay Moon MD - Last Filed: 10/08/19 16:33> Patient seen, examined, and discussed with WELLINGTON Hallman. On exam patient does have a 2/6 systolic murmur that he notes is chronic. Patient continues to have discomfort in his right flank after Toradol. Pain is improved. CT shows 5 mm stone. Plan to discuss with urology. I agree with history, exam treatment plan as discussed/documented. HPI <WELLINGTON Feliz - Last Filed: 10/12/19 00:16> General Mode of arrival: EMS . Date/Time Provider Initiated Documentation: 10/08/19 10:21 . Limitations to Documentation: no limitations . Information obtained by: patient and RN notes reviewed . History of Present Illness 79 year old M presents to the emergency department with the chief complaint of right sided abdominal pain, described as severe, with intensity rated at 10. Quality is described as stabbing, and is localized to the abdom en. Patient reports no radiation. Patient started experiencing this hour(s) and it has been constant. No relieving factors improve symptom(s), No exacerbating factors reported . Patient notes nausea/vomiting (nausea, no vomiting); denies chest pain, cough, diaphoresis, fever/chills, rash, shortness of breath and weakness. Patient did receive the following treatments prior to arrival, none Related Data Home Medications Medication Instructions Recorded Confirmed carvedilol 3.125 mg PO BID 05/30/13 10/08/19 tramadol 50 mg tablet 25 mg PO DAILY tab 01/26/19 10/08/19 ondansetron HCl [Zofran] 4 mg PO Q8H PRN #10 tab 03/05/19 10/08/19 carbidopa ER 25 mg-levodopa 100 mg 2 tab PO QID #240 tab 07/27/19 10/08/19 tablet,extended release melatonin 5 mg tablet 10 mg PO HS PRN 07/27/19 10/08/19 Previous Rx's Medication Instructions Recorded ondansetron HCl [Zofran] 4 mg PO Q8H PRN #10 tab 03/05/19 carbidopa ER 25 mg-levodopa 100 mg 2 tab PO QID #240 tab 07/27/19 tablet,extended release Allergies Allergy/AdvReac Type Severity Reaction Status Date / Time leuprolide acetate Allergy Severe Swelling/Ed Verified 10/08/19 10:22 [From Lupron] isabelle adhesive Allergy Intermediate Skin Rash Verified 10/08/19 10:22 enalapril [Enalapril] AdvReac Severe Hyperkalemi Verified 10/08/19 10:22 a aspirin AdvReac Intermediate Verified 10/08/19 10:22 esomeprazole magnesium AdvReac Intermediate Diarrhea Verified 10/08/19 10:22 [From Nexium] metformin AdvReac Intermediate Diarrhea Verified 10/08/19 10:22 acetaminophen AdvReac Mild Diarrhea Verified 10/08/19 10:22 General SHEKHAR: 3 Review of Systems <WELLINGTON Feliz - Last Filed: 10/12/19 00:16> Constitutional Constitutional: Reports as per HPI, Denies chills, Denies fatigue, Denies fever(s) and Denies headache(s) ENT Ears, Nose, Mouth, and Throat: Denies headache(s) Cardiovascular Cardiovascular: Reports as per HPI, Denies chest pain and Denies dyspnea Respiratory Respiratory: Reports as per HPI, Denies cough and Denies dyspnea Gastrointestinal Gastrointestinal: Reports as per HPI Genitourinary Genitourinary: Denies system reviewed and no additional complaints, except as documented (patient denies any change in urinary habits) Musculoskeletal Musculoskeletal: Reports as per HPI and Denies back pain Integumentary/Breasts Skin/Breast: Reports as per HPI and Denies rash Neurologic Neurologic: Reports as per HPI and Denies headache(s) Endocrine Endocrine: Denies fatigue PFSH <WELLINGTON Feliz - Last Filed: 10/12/19 00:16> Medical History Anxiety (Chronic) Cirrhosis of liver (Chronic) On beta blockers; Under care of Dr. Joe. Colon cancer (Chronic) Multiple polypectomies. 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 Liver cirrhosis MGUS (monoclonal gammopathy of unknown significance) (Chronic) Mild cognitive impairment (Acute 08/17/15) HANS (obstructive sleep apnea) Pancytopenia (Chronic) Thought to be secondary to liver cirrhosis and splenic sequestratioin. Please note bone marrow biopsy was negative. Parkinson disease Perirectal abscess (Resolved) Prostate cancer (Chronic 05/24/02) S/P radiation, Lupron, now on Zoladex. Restless leg syndrome (Acute 10/24/16) Streptococcal bacteremia (Resolved) s/p removal of buried central venous access device. no bleeding. no pain. cont care. Tubulovillous adenoma of colon (Resolved 11/21/15) Ventral hernia (Chronic) Visual hallucination (Inactive) Surgical History BONE MARROW BIOPSY (11/25/14) HellenROSALIOJULIANO Colectomy 1992 colonoscopy (11/21/15) H/O ventral hernia repair (Chronic) History of bowel resection (Chronic) History of Leonid fundoplication (Chronic) S/P cholecystectomy (Acute) S/P ear surgery (Acute) Family History Maternal Cousin Colon cancer Maternal Cousin Colon cancer Mother Cervical cancer Social History Smoking/Tobacco Use Status: Former Tobacco Use Quit Date: 06/17/94 Pack-years: 35 Second Hand Exposure: No Alcohol Intake: former Drug use: Never Substance use type: does not use Household members: none Housing: apartment current occupation: Retired Seatbelt use: always Do you feel safe at home: Yes Do you feel safe in your relationship?: Yes Additional Social history: Exam <WELLINGTON Feliz - Last Filed: 10/12/19 00:16> Const General: cooperative, healthy appearing, comfortable, no acute distress and well developed Nutritional Appearance: well nourished and overweight Orientation: alert and awake [facility] Head: normal to inspection Mouth: moist mucous membranes Resp Effort & Inspection: normal respiratory effort, able to speak in complete sentences and no respiratory distress Auscultation: clear to auscultation bilaterally, no rales, no rhonchi and no wheezes Cardio Rate: regular rate Rhythm: regular rhythm Heart Sounds: S1 normal and S2 normal GI Inspection: normal to inspection Palpation: soft, no hepatosplenomegaly, no guarding, hepatomegaly, hernia (midl ine incision), no pulsatile masses, not rigid and nontender Percussion: normal to percussion Auscultation: normal bowel sounds Back/Spine/Pelvis Back: no CVA tenderness Skin General skin exam: no rashes or lesions noted Trauma: no lacerations or abrasions Neuro General: patient alert and patient awake Cognition: normal cognition Speech: speech normal Gait: normal gait Psych Appearance: grossly normal and well kempt Mental Status: mental status grossly normal Speech and Movement: speech and movement normal
[2019-10-08 10:43] LABS: Abs Immature Grans 0.01 10^3/uL (0.0-0.06); Absolute Basophil Count 0.01 10^3/uL (0.0-0.2); Absolute Eosinophil Count 0.09 10^3/uL (0.0-0.7); Absolute Lymphocyte Count 0.25 10^3/uL (1.2-3.4); Absolute Neutrophil Count 1.76 10^3/uL (1.2-6.7); Basophils % 0.4; Eosinophils % 3.9; HCT 32.7 % (40.0-50.0); Immature Grans % 0.4; Lymphocytes % 10.8; MCH 30.3 pg (27.0-33.0); MCHC 33.6 % (32.0-36.0); MCV 90.1 fL (80-95); MPV 10.9 fL (8.0-11.0); Monocytes % 8.6; Neutrophils % 75.9; Nucleated RBC 0 %; RBC 3.63 10^6/uL (4.36-5.78); RDW 15.7 % (11.8-14.1); RDW-SD 51.9 fL; WBC 2.32 10^3/uL (4.4-10.8)
[2019-10-08] MEDS: Ketorolac 15 MG/ML VIAL IVP ×2 (10:43→15:14)
[2019-10-08] MEDS: Ondansetron 4 MG/2 ML VIAL IVP (10:43)
[2019-10-08 10:53] LABS: ALT 24 U/L (16-63); AST 39 U/L (15-37); Albumin 3.1 g/dL (3.4-5.0); Alkaline Phosphatase 178 U/L (46-116); BUN 12 mg/dL (7-18); Bilirubin, Total 1.4 mg/dL (0.2-1.0); CREATININE 0.87 mg/dL (0.70-1.30); Calcium 8.4 mg/dL (8.5-10.1); Chloride 105 mmol/L (98-107); Glucose 170 mg/dL (74-106); Potassium 4.1 mmol/L (3.5-5.1); Sodium 138 mmol/L (136-145); Total Protein 6.5 g/dL (6.4-8.2)
[2019-10-08 11:00] LABS: Diff Comment PLT Morph Reviewed; Ovalocytes 2+; Platelet Count 44 10^3/uL (130-400)
[2019-10-08] MEDS: Omnipaque 350 MG/ML 100 ML BTL IJ (12:10)
[2019-10-08] MEDS: Normal Saline - Diluent 50 ML VIAL IV (12:11)
--- NOTE | 2019-10-08 12:12 | DI.CT_ITS ---
EXAM: CT ABDOMEN PELVIS W CLINICAL HISTORY: sudden onset right sided abdominal pain. TECHNIQUE: Imaging Protocol: Axial computed tomography images with coronal and sagittal reformatted images were created and reviewed CONTRAST MATERIAL: Intravenous: Omnipaque 350 Contrast volume:100 cc Oral: no COMPARISON: CT CT ABDOMEN PELVIS W from 03/04/2019 FINDINGS: The heart is enlarged. A hiatal hernia is seen. There is mild scarring at the lung bases. A nodula r, cirrhotic appearing liver and and a small amount of surrounding ascites is again noted. Patient i s status post cholecystectomy. The spleen is again noted be markedly enlarged, unchanged. There is a cyst in the mid right kidney. There is mild right hydronephrosis secondary to a stone at the urete ral pelvic junction measuring 5 millimeters in greatest dimension. A 5 millimeter nonobstructing sto ne is seen at the lower pole of the left kidney. No bladder calculi are seen. There is a small righ t-sided bladder diverticulum. Metallic densities are again noted in the prostate. Small amount of a scites is noted in the pelvis. There is no bowel dilatation or inflammatory change. Scarring is not ed in the midline of the abdomen. There is no change in the fatty containing abdominal wall hernia t o the left of midline. There is a stable L3 compression fracture.. Impression: Mild to moderate right hydronephrosis secondary to a 5 millimeter stone in the ureteropelvic junction . RADIATION DOSE DELIVERED: 1,086.63mGy.cm Total DLP DATA REPOSITORY: All CT scans at this facility are submitted to the National Radiology Data Registry (NRDR) Dose Index Registry (DIR) with the [employer] (ACR). RADIATION OPTIMIZATION: All CT scans at this facility use at least one of these dose optimization te chniques: automated exposure control; mA and/or kV adjustment per patient size (includes targeted exa ms where dose is matched to clinical indication); or iterative reconstruction.
[2019-10-08 12:30] LABS: Bilirubin Negative (Negative); Blood Large (Negative); Clarity Cloudy (Clear); Glucose Negative (Negative); Ketones Negative (Negative); Leukocyte Esterase Negative (Negative); Nitrite Negative (Negative); Specific Gravity 1.025 (1.005-1.025); Urobilinogen 0.2 EU/dL (Up TO 0.2)
[2019-10-08] MEDS: Tamsulosin 0.4 MG CAPCR PO (12:39)
[2019-10-08 12:40] LABS: Bacteria Moderate HPF (Negative); Crystals Negative HPF (Negative); Epithelial Cells Negative HPF (Negative); Mucus Moderate (Negative); Other Cells Rare Renal (Negative); RBC >50 HPF (0-2)
[2019-10-08 12:41] LABS: C & S Indicated? Yes; Casts 0-2 Coarse Granular LPF (Negative)
[2019-10-08] MEDS: Lactated Ringers 1,000 ML 500 ML IV (12:47)
[2019-10-08] MEDS: cefTRIAXone 1 GM/50 ML BAG IVPB (14:47)
--- NOTE | 2019-10-08 16:19 | CMPROGNOTE_ITS ---
- If Service Date Differs Date of service: 10/08/19 Time of Service: 16:19 Care Management Progress Note SINDY meets with Drake to address some of his concerns regarding an appointment he has scheduled on Friday at [facility]. Drake states he is having a colonoscopy at [facility] Friday and he wishes to cancel the appointment as he expects he will still be at [facility]. SINDY contacts [facility] at Drake's request and cancels the appointment. SINDY also telephones [facility] to cancel Friday's ride to [facility]. Giselle kent is advised that both have been cancelled.
--- NOTE | 2019-10-08 16:19 | PDOC.ERCMPRO ---
- If Service Date Differs Date of service: 10/08/19 Time of Service: 16:19 Care Management Progress Note SINDY meets with Drake to address some of his concerns regarding an appointment he has scheduled on Friday at [facility]. Drake states he is having a colonoscopy at [facility] Friday and he wishes to cancel the appointment as he expects he will still be at [facility]. SINDY contacts [facility] at Drake's request and cancels the appointment. SINDY also telephones BRITTANIE to cancel Friday's ride to [facility]. Drake is advised that both have been cancelled.
--- NOTE | 2019-10-08 17:12 | NUR.NOTE ---
Nursing Note: Patient reports needs to take Parkinson's and blood pressure medicine at this time. Medications reviewed with ED provider and approved for patient to take those home medications at this time. Patient takes carvedilol (3.125 mg) x 1 tab and [carbidopa ER 25 mg -levodopa 100 mg] x 2 tabs (home meds) for 1700 med time.
[2019-10-09] VITALS: BP 151/75; PULSE 56; RESP 20; TEMP 36.5; O2SAT 99
[2019-10-09] MEDS: Ketorolac 15 MG/ML VIAL IVP ×2 (00:01→14:44)
[2019-10-09] MEDS: Normal Saline Flush 10 ML SYR IVP (00:01)
--- NOTE | 2019-10-09 02:25 | HPE_ITS ---
Date of service: 10/08/19 Time of Service: 17:14 Assessment and Plan Assessment and plan (1) HTN (hypertension): Status: None Assessment and plan: Currently on low dose carvedilol 3.125mg BID BPs elevated but improved into the 130-140's during hospitalization course thus far. Monitor (2) Parkinson disease: Status: None Assessment and plan: Cont carvidopa-levidopa Controlled. Last neurology visit was in July 2019 (3) MGUS (monoclonal gammopathy of unknown significance): Status: Chronic Assessment and plan: WBC count, Hgb and platelets stable at his baseline. No evidence of bleeding. (4) Cirrhosis of liver: Status: Chronic Assessment and plan: Total bili of 1.4; within in baseline range. Ammonia elevated; 82 AST 39, ALT 24 Has dx of mild cognitive impairment. No confusion noted. Will give lactulose in the AM; consider ongoing use. (5) Type 2 diabetes mellitus: Status: Chronic Assessment and plan: History of insulin use; no insulin or oral diabetic meds currently on MAR A1c of 6.6 on 07/30/2019 Glucose monitoring with SS insulin correction dosing (6) Right nephrolithiasis: Status: Acute Assessment and plan: Pain managed UA with large amount of blood, 10-20 WBC, no epis, moderate bacteria Cont prn toradol and morphine Cont daily tamsulosin until stone passed strain urine No h/o nephrolithiasis. Send any stone obtained for analysis (7) Urinary tract infection: Status: Acute Assessment and plan: Related to nephrolithiasis Rocephin initiated in the ED Cx in progress. History of Present Illness History of Present Illness Chief Complaint: R sided abdominal and flank pain Narrative: 79 year old male with a h/o Parkinson's disease, DM, MGUS with pancytopenia, HTN, HLD, colon cancer, cirrhosis, RLS, previous tobacco and alcohol abuse syndromes. He presented to the emergency department with the chief complaint of right sided abdominal pain, described as severe, with intensity rated at 10. The pain was described as stabbing. Patient reports no radiation. Patient started experiencing this hour(s) before presentation and it has been constant. No relieving factors improve symptom(s), No exacerbating factors reported . He endorsed nausea / no emesis. He denied chest pain, cough, diaphoresis, fever/chills, rash, shortness of breath and weakness. CT abd pelvis showed mild to moderate R hydronephrosis with a 5 mm stone at the ureteropelvic junction. No Urology available at the time at [facility]. ED physician spoke with Urology at 3 other facilities. All state no intervention required at the time. [facility] offered to have the patient transferred but the patient refused d/t concerns of COVID-19 in [facility]. His pain was much relieved with IV Toradol and morphine. Review of Systems All systems reviewed & are unremarkable except as noted in HPI and below [facility] Medical History Anxiety (Chronic) Cirrhosis of liver (Chronic) On beta blockers; Under care of Dr. Joe. Colon cancer (Chronic) Multiple polypectomies. 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 Liver cirrhosis MGUS (monoclonal gammopathy of unknown significance) (Chronic) Mild cognitive impairment (Acute 08/17/15) HANS (obstructive sleep apnea) Pancytopenia (Chronic) Thought to be secondary to liver cirrhosis and splenic sequestratioin. Please note bone marrow biopsy was negative. Parkinson disease Perirectal abscess (Resolved) Prostate cancer (Chronic 05/24/02) S/P radiation, Lupron, now on Zoladex. Restless leg syndrome (Acute 10/24/16) Streptococcal bacteremia (Resolved) s/p removal of buried central venous access device. no bleeding. no pain. cont care. Tubulovillous adenoma of colon (Resolved 11/21/15) Ventral hernia (Chronic) Visual hallucination (Inactive) Surgical History BONE MARROW BIOPSY (11/25/14) LISSET Colectomy 1992 colonoscopy (11/21/15) H/O ventral hernia repair (Chronic) History of bowel resection (Chronic) History of Leonid fundoplication (Chronic) S/P cholecystectomy (Acute) S/P ear surgery (Acute) Family History Maternal Cousin Colon cancer Maternal Cousin Colon cancer Mother Cervical cancer Social History Smoking/Tobacco Use Status: Former Tobacco Use Quit Date: 06/17/94 Pack-years: 35 Second Hand Exposure: No Alcohol Intake: former Drug use: Never Substance use type: does not use Household members: none Housing: apartment current occupation: Retired Seatbelt use: always Do you feel safe at home: Yes Do you feel safe in your relationship?: Yes Meds Home Medications and Allergies Home Medications Medication Instructions Recorded Confirmed Type carvedilol 3.125 mg PO BID 05/30/13 10/08/19 History tramadol 50 mg tablet 25 mg PO DAILY tab 01/26/19 10/08/19 History ondansetron HCl [Zofran] 4 mg PO Q8H PRN #10 tab 03/05/19 10/08/19 Rx carbidopa ER 25 mg-levodopa 100 mg 2 tab PO QID #240 tab 07/27/19 10/08/19 Rx tablet,extended release melatonin 5 mg tablet 10 mg PO HS PRN 07/27/19 10/08/19 History Allergies Allergy/AdvReac Type Severity Reaction Status Date / Time leuprolide acetate Allergy Severe Swelling/Ed Verified 10/08/19 10:22 [From Lupron] isabelle adhesive Allergy Intermediate Skin Rash Verified 10/08/19 10:22 enalapril [Enalapril] AdvReac Severe Hyperkalemi Verified 10/08/19 10:22 a aspirin AdvReac Intermediate Verified 10/08/19 10:22 esomeprazole magnesium AdvReac Intermediate Diarrhea Verified 10/08/19 10:22 [From Nexium] metformin AdvReac Intermediate Diarrhea Verified 10/08/19 10:22 acetaminophen AdvReac Mild Diarrhea Verified 10/08/19 10:22 Exam Const General: cooperative and no acute distress Nutritional Appearance: obese Orientation: alert and oriented x3 HENMT Head: normocephalic and atraumatic Eyes Conjunctivae: conjunctivae normal Sclera: sclerae normal Resp Effort & Inspection: normal respiratory effort Auscultation: clear to auscultation bilaterally Cardio Jugular venous pressure: no JVD Rate: regular rate Rhythm: regular rhythm Heart Sounds: S1 normal, S2 normal and murmur (soft) GI Inspection: obesity Palpation: soft (Mild LUQ tenderness. No flank tenderness ) and hernia (midline at old surgical incision) Auscultation: normal bowel sounds Neuro General: patient alert and no focal motor deficits Cognition: normal cognition Speech: speech normal Extrem General: no clubbing, cyanosis or edema Results Labs Result diagrams: 10/08/19 10:21 10/08/19 10:21 Labs: Laboratory Results - last 24 hr 10/08/19 10/08/19 10/08/19 10:21 10:21 12:20 WBC 2.32 L RBC 3.63 L Hgb 11.0 L Hct 32.7 L MCV 90.1 MCH 30.3 MCHC 33.6 RDW 15.7 H Plt Count 44 L MPV 10.9 Immature Gran % 0.4 Neutrophils % 75.9 Lymphocytes % 10.8 Monocytes % 8.6 Eosinophils % 3.9 Basophils % 0.4 Nucleated RBC % 0 Absolute Neutrophils 1.76 Absolute Lymphocytes 0.25 L Absolute Monocytes 0.20 Absolute Eosinophils 0.09 Absolute Basophils 0.01 RBC Morphology See below Ovalocytes 2+ Sodium 138 Potassium 4.1 Chloride 105 Carbon Dioxide 27.0 Anion Gap 6.0 BUN 12 Creatinine 0.87 Estimated GFR/1.73 m2 >= 60.00 Glucose 170 H Calcium 8.4 L Total Bilirubin 1.4 H AST 39 H ALT 24 Alkaline Phosphatase 178 H Total Protein 6.5 Albumin 3.1 L Urine Color Dark yellow Urine Clarity Cloudy Urine pH 6.0 Ur Specific [place] 1.025 Urine Protein Trace H Urine Ketones Negative Urine Blood Large H Urine Nitrite Negative Urine Bilirubin Negative Urine Urobilinogen 0.2 Ur Leukocyte Esterase Negative Urine RBC >50 H Urine WBC 10-20 H Ur Epithelial Cells Negative Urine Crystals Negative Urine Bacteria Moderate Urine Casts 0-2 coarse granular Urine Mucus Moderate Urine Other Rare renal Ur Culture Indicated? Yes Urine Glucose Negative Last Vital Signs Temp 36.8 C 10/08/19 19:28 Pulse 70 10/08/19 19:28 Resp 16 10/08/19 19:28 BP 133/75 10/08/19 19:28 Pulse Ox 98 10/08/19 19:28 COVID-19 Screening Have you,or household,traveled outside [place] in last 14 days?: No Had IN PERSON contact w/suspected or confirmed C-19 person: No
[2019-10-09] MEDS: Normal Saline 1,000 ML 100 ML IV ×2 (02:34→12:16)
[2019-10-09 08:01] LABS: Absolute Basophil Count 0.01 10^3/uL (0.0-0.2); Absolute Eosinophil Count 0.07 10^3/uL (0.0-0.7); Absolute Lymphocyte Count 0.21 10^3/uL (1.2-3.4); Absolute Monocyte Count 0.17 10^3/uL (0.1-0.8); Absolute Neutrophil Count 0.89 10^3/uL (1.2-6.7); Basophils % 0.7; Eosinophils % 5.2; HGB 9.5 g/dL (13.5-17.5); Lymphocytes % 15.6; MCHC 32.8 % (32.0-36.0); MCV 91.5 fL (80-95); Monocytes % 12.6; Neutrophils % 65.9; Nucleated RBC 0 %; RBC 3.17 10^6/uL (4.36-5.78); RDW 15.5 % (11.8-14.1); RDW-SD 52.1 fL
[2019-10-09 08:18] LABS: ALT 6 U/L (16-63); AST 34 U/L (15-37); Albumin 2.5 g/dL (3.4-5.0); Alkaline Phosphatase 131 U/L (46-116); Anion Gap 6.4 mmol/L (3-11); BUN 17 mg/dL (7-18); Bilirubin, Total 1.1 mg/dL (0.2-1.0); CO2 25.6 mmol/L (21.0-32.0); CREATININE 0.99 mg/dL (0.70-1.30); Chloride 110 mmol/L (98-107); Glucose 115 mg/dL (74-106); Potassium 4.5 mmol/L (3.5-5.1); Sodium 142 mmol/L (136-145); Total Protein 5.6 g/dL (6.4-8.2)
[2019-10-09 08:41] LABS: WBC 1.35 10^3/uL (4.4-10.8)
[2019-10-09 08:43] LABS: Platelet Count 34 10^3/uL (130-400)
[2019-10-09 08:44] LABS: Diff Comment Agrees w/ Instrument; Ovalocytes 2+
[2019-10-09 08:50] VITALS: BP 153/74; PULSE 61; RESP 18; TEMP 36.6; O2SAT 98
[2019-10-09] MEDS: Tamsulosin 0.4 MG CAPCR PO ×2 (08:55→20:22)
[2019-10-09] MEDS: Carvedilol 3.125 MG TAB PO ×2 (08:55→18:23)
[2019-10-09] MEDS: cefTRIAXone 1 GM/50 ML BAG IVPB (08:56)
[2019-10-09] MEDS: Insulin Aspart 300 UNITS/3 ML PEN SC ×2 (12:16→18:23)
--- NOTE | 2019-10-09 13:44 | PHA.REVIEW ---
Pharmacy Admission Review - Admission Clinical Review (Last Reviewed 10/09/19 @ 02:33 by Noé Barrett MD) Right nephrolithiasis (Acute) Urinary tract infection (Acute) leuprolide acetate [From Lupron] Allergy (Severe, Verified 10/08/19 10:22) Swelling/Edema adhesive Allergy (Intermediate, Verified 10/08/19 10:22) Skin Rash enalapril [Enalapril] Adverse Reaction (Severe, Verified 10/08/19 10:22) Hyperkalemia aspirin Adverse Reaction (Intermediate, Verified 10/08/19 10:22) esomeprazole magnesium [From Nexium] Adverse Reaction (Intermediate, Verified 10/08/19 10:22) Diarrhea metformin Adverse Reaction (Intermediate, Verified 10/08/19 10:22) Diarrhea acetaminophen Adverse Reaction (Mild, Verified 10/08/19 10:22) Diarrhea Height 5 ft 8 in Weight 92.986 kg - Renal Dosing Renal Dosing: BUN 17 mg/dL (7-18) 10/09/19 07:32 Creatinine 0.99 mg/dL (0.70-1.30) 10/09/19 07:32 Medications needing adjustments: Reviewed (crcl ~60ml/min) - Anticoagulation Anticoagulation: Hgb 9.5 g/dL (13.5-17.5) L 10/09/19 07:32 Hct 29.0 % (40.0-50.0) L 10/09/19 07:32 Plt Count 34 10^3/uL (130-400) L 10/09/19 07:32 Creatinine 0.99 mg/dL (0.70-1.30) 10/09/19 07:32 DVT Prohphylaxis: Reviewed (no meds due to low plt) - Opiate Usage Scheduled Bowel Reg ordered if on Opiates?: No (prn) - Relevant Labs Sodium 142 mmol/L (136-145) 10/09/19 07:32 Potassium 4.5 mmol/L (3.5-5.1) 10/09/19 07:32 Chloride 110 mmol/L (98-107) H 10/09/19 07:32 Electrolytes, C-Reactive P, ESR: Reviewed - DM Control DM Control: Glucose 115 mg/dL (74-106) H 10/09/19 07:32 Finger Stick Blood Glucose 222 Finger Stick Blood Glucose 120 Insulin Dosing: Reviewed (aspart SS, Fs 120) - BP Control BP Control: Blood Pressure 153/74 If elevated: Reviewed - Qtc Review If Elevated: N/A - Current meds Current Medication Order Review: Reviewed (insulin and tamsulosin not on [place] list,)
--- NOTE | 2019-10-09 15:30 | W.PM.PROGNOT ---
Date of Service Date of service: 10/09/19 Time of Service: 15:37 Assessment and Plan Assessment and plan (1) Right nephrolithiasis: Status: Acute Assessment and plan: Patient denies any history of kidney stones. CT scan of the abdomen pelvis demonstrated a right 5 mm ureteropelvic junction stone causing moderate hydronephrosis. He also has 5 mm nonobstructing stone of the left kidney. I will increase his Flomax to 0.4 mg p.o. twice daily and continue with the IV fluid hydration along with narcotic analgesics and antiemetics. Continue to monitor his urine for stone analysis. If patient fails to pass a stone then will have urology see him for cystoscopy ureteroscopy. (2) Urinary tract infection: Status: Acute Assessment and plan: Related to nephrolithiasis Rocephin initiated in the ED Cx in progress. Qualifiers: Urinary tract infection type: site unspecified Hematuria presence: with hematuria Qualified Code(s): N39.0 - Urinary tract infection, site not specified; R31.9 - Hematuria, unspecified (3) HTN (hypertension): Status: None Assessment and plan: Currently on low dose carvedilol 3.125mg BID BPs elevated but improved into the 130-140's during hospitalization course thus far. Monitor Qualifiers: Hypertension type: essential hypertension Qualified Code(s): I10 - Essential (primary) hypertension (4) Parkinson disease: Status: None Assessment and plan: Cont carvidopa-levidopa Controlled. 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 Continue to monitor. No evidence of acute bleeding. Patient seems to have no understanding of his disease process. I specifically asked him if he had a bone marrow problems and he denied the same. (6) Cirrhosis of liver: Status: Chronic Assessment and plan: Unclear as the etiology of his cirrhosis. Patient formally drank alcohol but has not had any in many years. He seemed to have no understanding that he has chronic cirrhosis. He does recall seeing his drier tender naphthalene at [facility] where he was treated for varicose veins of the esophagus but feels that this was treated and resolved. He has evidence of nodular cirrhosis on CT scan along with ascites. However he does not appear to be in any overt anasarca and does not demonstrate encephalopathy. I will follow-up with repeat CMP in the morning along with an ammonia level and coagulation studies. Qualifiers: Hepatic cirrhosis type: unspecified hepatic cirrhosis Ascites presence: with ascites Qualified Code(s): K74.60 - Unspecified cirrhosis of liver; R18.8 - Other ascites (7) Type 2 diabetes mellitus: Status: Chronic Assessment and plan: History of insulin use; no insulin or oral diabetic meds currently on MAR A1c of 6.6 on 07/30/2019 Glucose monitoring with SS insulin correction dosing Qualifiers: Diabetes mellitus mcfp insulin use: without mcfp use Diabetes mellitus complication status: without complication Qualified Code(s): E11.9 - Type 2 diabetes mellitus without complications Subjective Subjective Interval history since last seen: Patient still has not passed his 5 mm right ureteropelvic junction ureterolithiasis. This is causing moderate right hydronephrosis. He is afebrile and currently on Rocephin for UTI. Patient has been under treatment by from [facility] for prostate cancer. Last treatment was September 20. From current record it is unclear as to what that treament consists of. His prostate cancer is recurrent as it was first diagnosed in 2003. He is pancytopenic. Per Dr. Barrett, the patient has history of MGUS although the patient does not recall this diagnosis and denies any bone marrow issues. Dr. Garcias, urology, is not available this weekend however, he has been consulted to see the patient on Friday should the patient fail to pass his stone. Patient still has pain but now has migrated to the RLQ in the pelvic area. No flank pain now. No nausea or vomiting. Exam Narrative Exam Narrative: Elderly male sitting up in the bed watching TV. He is very hard of hearing. He is alert and oriented person place time circumstance. Lungs reveal bibasilar rales no rhonchi or wheezing. Heart is regular rate and rhythm with a soft systolic murmur over the apex no thrill or heave or gallop. Abdomen is soft with normal active bowel sounds with some mild right lower quadrant tenderness with palpation. There is no right flank pain. Objective Objective Clinical Data: Abnormal lab results 10/09/19 10/09/19 Range/Units 07:32 07:32 WBC 1.35 L* D (4.4-10.8) 10^3/uL RBC 3.17 L (4.36-5.78) 10^6/uL Hgb 9.5 L (13.5-17.5) g/dL Hct 29.0 L (40.0-50.0) % RDW 15.5 H (11.8-14.1) % Plt Count 34 L (130-400) 10^3/uL MPV 12.0 H (8.0-11.0) fL Absolute Neutrophils 0.89 L (1.2-6.7) 10^3/uL Absolute Lymphocytes 0.21 L (1.2-3.4) 10^3/uL Chloride 110 H (98-107) mmol/L Glucose 115 H (74-106) mg/dL Calcium 8.0 L (8.5-10.1) mg/dL Total Bilirubin 1.1 H (0.2-1.0) mg/dL ALT 6 L (16-63) U/L Alkaline Phosphatase 131 H (46-116) U/L Total Protein 5.6 L (6.4-8.2) g/dL Albumin 2.5 L (3.4-5.0) g/dL Vital Signs Temperature 36.6 C 10/09/19 08:50 Temperature Source Temporal Artery Scan 10/09/19 08:50 Pulse 61 10/09/19 08:50 Pulse Rhythm Regular 10/09/19 15:04 Pulse 72 10/08/19 19:01 Respiratory Rate 18 10/09/19 08:50 Respiratory Effort Non-Labored 10/09/19 15:04 Respiratory Depth Normal 10/09/19 15:04 Respiratory Pattern Normal 10/09/19 15:04 Blood Pressure 153/74 H 10/09/19 08:50 Blood Pressure Mean 72 10/08/19 19:01 Blood Pressure Position Sitting 10/08/19 10:19 Pulse Oximetry 98 10/09/19 08:50 Oxygen Delivery Method Room Air 10/09/19 08:50 Oxygen Flow Rate 0 10/09/19 08:50 Pain Level 5 10/09/19 14:44 Intake & Output 10/08/19 10/09/19 10/09/19 23:59 11:59 23:59 Intake Total 1050 / 1050 50 / 1020 970 / 1020 Output Total 100 / 350 350 / 550 200 / 550 Balance 950 / 700 -300 / 470 770 / 470 Weight 92.986 kg Intake: IV 1050 / 1050 970 / 970 Oral 50 / 50 Output: Urine 100 / 350 350 / 550 200 / 550 Other: Urine Color Dark Vi Light Vi Yellow Urine Appearance Cloudy Clear Clear Cloudy Urine Odor Normal None Normal Comment STRAINED, NO STONE Voiding Methods Urinal Toilet Toilet Laboratory Results WBC 1.35 10^3/uL (4.4-10.8) L* D 10/09/19 07:32 RBC 3.17 10^6/uL (4.36-5.78) L 10/09/19 07:32 Hgb 9.5 g/dL (13.5-17.5) L 10/09/19 07:32 Hct 29.0 % (40.0-50.0) L 10/09/19 07:32 MCV 91.5 fL (80-95) 10/09/19 07:32 MCH 30.0 pg (27.0-33.0) 10/09/19 07:32 MCHC 32.8 % (32.0-36.0) 10/09/19 07:32 RDW 15.5 % (11.8-14.1) H 10/09/19 07:32 Plt Count 34 10^3/uL (130-400) L 10/09/19 07:32 MPV 12.0 fL (8.0-11.0) H 10/09/19 07:32 Immature Gran % 0.0 10/09/19 07:32 Neutrophils % 65.9 10/09/19 07:32 Lymphocytes % 15.6 10/09/19 07:32 Monocytes % 12.6 10/09/19 07:32 Eosinophils % 5.2 10/09/19 07:32 Basophils % 0.7 10/09/19 07:32 Nucleated RBC % 0 % 10/09/19 07:32 Absolute Neutrophils 0.89 10^3/uL (1.2-6.7) L 10/09/19 07:32 Absolute Lymphocytes 0.21 10^3/uL (1.2-3.4) L 10/09/19 07:32 Absolute Monocytes 0.17 10^3/uL (0.1-0.8) 10/09/19 07:32 Absolute Eosinophils 0.07 10^3/uL (0.0-0.7) 10/09/19 07:32 Absolute Basophils 0.01 10^3/uL (0.0-0.2) 10/09/19 07:32 RBC Morphology See below 10/09/19 07:32 Ovalocytes 2+ 10/09/19 07:32 Sodium 142 mmol/L (136-145) 10/09/19 07:32 Potassium 4.5 mmol/L (3.5-5.1) 10/09/19 07:32 Chloride 110 mmol/L (98-107) H 10/09/19 07:32 Carbon Dioxide 25.6 mmol/L (21.0-32.0) 10/09/19 07:32 Anion Gap 6.4 mmol/L (3-11) 10/09/19 07:32 BUN 17 mg/dL (7-18) 10/09/19 07:32 Creatinine 0.99 mg/dL (0.70-1.30) 10/09/19 07:32 Estimated GFR/1.73 m2 >= 60.00 (mL/min/1.73m2) 10/09/19 07:32 Glucose 115 mg/dL (74-106) H 10/09/19 07:32 Calcium 8.0 mg/dL (8.5-10.1) L 10/09/19 07:32 Total Bilirubin 1.1 mg/dL (0.2-1.0) H 10/09/19 07:32 AST 34 U/L (15-37) 10/09/19 07:32 ALT 6 U/L (16-63) L 10/09/19 07:32 Alkaline Phosphatase 131 U/L (46-116) H 10/09/19 07:32 Total Protein 5.6 g/dL (6.4-8.2) L 10/09/19 07:32 Albumin 2.5 g/dL (3.4-5.0) L 10/09/19 07:32 Urine Color Dark yellow (Yellow) 10/08/19 12:20 Urine Clarity Cloudy (Clear) 10/08/19 12:20 Urine pH 6.0 (5-8) 10/08/19 12:20 Ur Specific [place] 1.025 (1.005-1.025) 10/08/19 12:20 Urine Protein Trace mg/dL (Negative) H 10/08/19 12:20 Urine Ketones Negative mg/dL (Negative) 10/08/19 12:20 Urine Blood Large (Negative) H 10/08/19 12:20 Urine Nitrite Negative (Negative) 10/08/19 12:20 Urine Bilirubin Negative (Negative) 10/08/19 12:20 Urine Urobilinogen 0.2 EU/dL (Up TO 0.2) 10/08/19 12:20 Ur Leukocyte Esterase Negative (Negative) 10/08/19 12:20 Urine RBC >50 HPF (0-2) H 10/08/19 12:20 Urine WBC 10-20 HPF (0-5) H 10/08/19 12:20 Ur Epithelial Cells Negative HPF (Negative) 10/08/19 12:20 Urine Crystals Negative HPF (Negative) 10/08/19 12:20 Urine Bacteria Moderate HPF (Negative) 10/08/19 12:20 Urine Casts 0-2 coarse granular LPF (Negative) 10/08/19 12:20 Urine Mucus Moderate (Negative) 10/08/19 12:20 Urine Other Rare renal (Negative) 10/08/19 12:20 Ur Culture Indicated? Yes 10/08/19 12:20 Urine Glucose Negative mg/dL (Negative) 10/08/19 12:20
[2019-10-09 15:59] VITALS: BP 169/77; PULSE 63; RESP 16; TEMP 36.6; O2SAT 99
--- NOTE | 2019-10-09 20:02 | INITIAL_ITS ---
- If Service Date Differs Date of service: 10/09/19 Time of Service: 20:02 Care Management Initial Assess REASON FOR HOSPITALIZATION:: Nephrolithiasis PAST MEDICAL HISTORY/PAST SURGICAL HISTORY:: Medical History . Anxiety (Chronic). Cirrhosis of liver (Chronic). On beta blockers; Under care of Dr. Joe. Colon cancer (Chronic). Multiple polypectomies. DM (diabetes mellitus). Esophageal varices (Chronic). GERD (gastroesophageal reflux disease). 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 HTN (hypertension). Hyperlipidemia (Acute). IBS (irritable bowel syndrome). Iron deficiency (Chronic). CBcs and VBenofer on a regular basis. Liver cirrhosis. MGUS (monoclonal gammopathy of unknown significance) (Chronic). Mild cognitive impairment (Acute 08/17/15). HANS (obstructive sleep apnea). Pancytopenia (Chronic). Thought to be secondary to liver cirrhosis and splenic sequestratioin. Please note bone marrow biopsy was negative. Parkinson disease. Perirectal abscess (Resolved). Prostate cancer (Chronic 05/24/02). S/P radiation, Lupron, now on Zoladex. Restless leg syndrome (Acute 10/24/16). Streptococcal bacteremia (Resolved). s/p removal of buried central venous access device. no bleeding. no pain. cont care. Tubulovillous adenoma of colon (Resolved 11/21/15). Ventral hernia (Chronic). Visual hallucination (Inactive). Surgical History . BONE MARROW BIOPSY (11/25/14). LISSET. Colectomy. 1992. colonoscopy (11/21/15). H/O ventral hernia repair (Chronic). History of bowel resection (Chronic). History of Leonid fundoplication (Chronic). S/P cholecystectomy (Acute). S/P ear surgery (Acute) PREVIOUS FUNCTIONAL STATUS/SOCIAL/FAMILY SUPPORTS:: Drake lives at the [facility] alone. His , Gregoria is a resident at [facility] and he visits her regularly. He has a daughter Annabelle, and a step daughter Naar who are both identified as supports. He does not drive, and relys on [facility] for transportation. CURRENT FUNCTIONAL STATUS:: Drake was sitting up in his chair when CM met with him. He reported that he was feeling better today, but was still waiting for a stone to pass. Per report, he will be evaluated by PT. Drake reported that he had an appointment at [facility] on Friday that was cancelled for a colonoscopy, which would need to be rescheduled. CM will continue to follow. ADVANCE DIRECTIVES:: On file, Annabelle, daughter, listed as agent. Nara, step daughter, listed as alternate agent. Has patient been provided with info about the portal/API?: Yes Did the patient sign up for the portal?: No CODE STATUS:: DNR/DNI CODE STATUS COMMENT:: Drake is listed as Full Code, but his COLST form is on file, which is the most recent form, which states DNR/DNI. The dates that the AD and COLST were uploaded, is NOT the date that they were signed. COLST is most recent document. INSURANCE COVERAGE / FINANCIAL ISSUES:: [facility] HMO/[employer], Plan J/Fin Assist 100% CURRENT HOME/COMMUNITY SERVICES/EQUIPMENT:: Drake lives at the [facility], where there is a meal site. He relys on [facility] for transportation. He has a homemaker through [facility] moderate needs. He also owns a CPAP, wheelchair, motorized wheelchair, FWW, raised toilet seat, and shower chair. PRIMARY CARE PHYSICIAN:: Joanne Riggins POTENTIAL DISCHARGE NEEDS:: Evalutation for further needs, follow up appointments PATIENT/FAMILY EDUCATION NEEDS:: Review discharge instructions, discussion of self care needs ANTICIPATED BARRIERS TO DISCHARGE:: None identified at this time. TRANSPORTATION:: [facility] transportation, coordinated by CM PLAN:: Anticipate Drake will return home once medically stable with a resumption of [facility] moderate needs. His disability case manager, Stacie Sifuentes, from [facility] will follow him in the community. He will follow up with his PCP, as recommended. CM will coordinate [facility] transportation for him to return. CM will continue to follow.
[2019-10-09 21:01] LABS: COVID-19 RT-PCR UVMMC Result Negative (Negative)
[2019-10-10 00:01] VITALS: BP 114/69; PULSE 80; RESP 18; TEMP 36.7; O2SAT 98
[2019-10-10] MEDS: Ketorolac 15 MG/ML VIAL IVP ×2 (00:07→20:25)
[2019-10-10] MEDS: Normal Saline Flush 10 ML SYR IVP (00:08)
[2019-10-10] MEDS: Insulin Aspart 300 UNITS/3 ML PEN SC ×3 (08:24→17:14)
[2019-10-10] MEDS: cefTRIAXone 1 GM/50 ML BAG IVPB (08:24)
[2019-10-10] MEDS: Tamsulosin 0.4 MG CAPCR PO ×2 (08:24→20:14)
[2019-10-10] MEDS: Carvedilol 3.125 MG TAB PO ×2 (08:24→17:14)
[2019-10-10 09:18] LABS: Abs Immature Grans 0.01 10^3/uL (0.0-0.06); Absolute Basophil Count 0.01 10^3/uL (0.0-0.2); Absolute Eosinophil Count 0.08 10^3/uL (0.0-0.7); Absolute Lymphocyte Count 0.17 10^3/uL (1.2-3.4); Absolute Monocyte Count 0.12 10^3/uL (0.1-0.8); Absolute Neutrophil Count 0.91 10^3/uL (1.2-6.7); Basophils % 0.8; Eosinophils % 6.2; HCT 29.4 % (40.0-50.0); HGB 9.7 g/dL (13.5-17.5); Immature Grans % 0.8; Lymphocytes % 13.1; MCH 30.1 pg (27.0-33.0); MCV 91.3 fL (80-95); MPV 11.2 fL (8.0-11.0); Monocytes % 9.2; Neutrophils % 69.9; Nucleated RBC 0 %; RBC 3.22 10^6/uL (4.36-5.78); RDW 15.8 % (11.8-14.1); RDW-SD 52.7 fL
[2019-10-10 09:22] LABS: ALT 6 U/L (16-63); AST 38 U/L (15-37); Albumin 2.7 g/dL (3.4-5.0); Alkaline Phosphatase 144 U/L (46-116); Anion Gap 7.2 mmol/L (3-11); BUN 18 mg/dL (7-18); Bilirubin, Total 1.1 mg/dL (0.2-1.0); CO2 23.8 mmol/L (21.0-32.0); CREATININE 0.84 mg/dL (0.70-1.30); Calcium 7.9 mg/dL (8.5-10.1); Chloride 109 mmol/L (98-107); Glucose 187 mg/dL (74-106); Potassium 4.5 mmol/L (3.5-5.1); Sodium 140 mmol/L (136-145)
[2019-10-10 09:29] VITALS: BP 132/81; PULSE 65; RESP 18; TEMP 36; O2SAT 100
[2019-10-10 09:34] LABS: Diff Comment Diff Reviewed; Platelet Count 31 10^3/uL (130-400)
[2019-10-10 09:35] LABS: Ovalocytes 2+
[2019-10-10] MEDS: Normal Saline 1,000 ML 100 ML IV (12:00)
--- NOTE | 2019-10-10 14:56 | PGE_ITS ---
Date of Service Date of service: 10/10/19 Time of Service: 14:57 Assessment and Plan Assessment and plan (1) Diarrhea: Status: Acute Assessment and plan: I suspect infectious etiology as this came on after he got started on Rocephin and the patient historically has had a history of C. difficile diarrhea about a year ago. Given his chronic liver disease rather than putting him on Flagyl I will put him on oral vancomycin. Continue with Metamucil and Questran. Currently awaiting C. difficile stool studies as well as bacterial pathogens. Qualifiers: Diarrhea type: presumed infectious Qualified Code(s): R19.7 - Diarrhea, unspecified (2) Right nephrolithiasis: Status: Acute Assessment and plan: 5 mm right UVP stone with hydronephrosis of a mild to moderate nature. So far patient's been unable to pass this despite Flomax and IV fluids. I will consult with urology tomorrow morning asking Dr. Garcias to see the patient to consider timing of doing cystoscopy ureteroscopy and stenting. (3) Urinary tract infection: Status: Ruled-out Assessment and plan: Urine culture from October 08, 2019 was finalized is showing less than 10,000 colonies of gram-positive edwina. I will DC his Rocephin. Qualifiers: Urinary tract infection type: site unspecified Hematuria presence: with hematuria Qualified Code(s): N39.0 - Urinary tract infection, site not specified; R31.9 - Hematuria, unspecified (4) HTN (hypertension): Status: None Assessment and plan: BP is markedly improved. Continue current dose of carvedilol Qualifiers: Hypertension type: essential hypertension Qualified Code(s): I10 - Essential (primary) hypertension (5) Parkinson disease: Status: None Assessment and plan: Cont carvidopa-levidopa Controlled. 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 Continue to monitor. No evidence of acute bleeding. Patient seems to have no understanding of his disease process. I specifically asked him if he had a bone marrow problems and he denied the same. (7) Cirrhosis of liver: Status: Chronic Assessment and plan: Unclear as to the etiology of his cirrhosis. CT scan shows nodular cirrhotic changes along with ascites. Apparently this is a known diagnosis although he seems to have no clue is because and seems to think that this was fixed when he had his esophageal varices treated by his GI specialist Dr. Joe at [facility]. Qualifiers: Hepatic cirrhosis type: unspecified hepatic cirrhosis Ascites presence: with ascites Qualified Code(s): K74.60 - Unspecified cirrhosis of liver; R18.8 - Other ascites (8) Type 2 diabetes mellitus: Status: Chronic Assessment and plan: Not on any home diabetic medications. Glucose levels over the last 24 hours have ranged between 120-210. We will continue to monitor his glucose before meals and at bedtime and cover with sliding scale insulin as needed. Last A1c was 6.6% in July Qualifiers: Diabetes mellitus buttermaker continuous churn insulin use: without skilled nursing use Diabetes mellitus complication status: without complication Qualified Code(s): E11.9 - Type 2 diabetes mellitus without complications Subjective Subjective Interval history since last seen: Patient does not feel well today. He has had at least 5 liquid bowel movements today. Stools been sent off for C. difficile study and is pending at this time. Avoid Metamucil as well as Questran to help thicken his stools. Could empirically put him on some oral Flagyl if I do not get his C. difficile study back today. Patient denies any dysuria or hematuria. He still has some right lower quadrant abdominal pain from his ureterolithiasis. We will have Dr. Garcias see him tomorrow to evaluate his right hydronephrosis and right 5 mm UVP stone. Review of his labs CBC shows a stable pancytopenia secondary to his underlying monoclonal gammopathy. CMP shows stable electrolytes normal BUN and creatinine he has chronic but stable elevated LFTs secondary to his underlying cirrhosis. Exam Narrative Exam Narrative: Ill-appearing elderly male who sitting up in his chair complaining of feeling cold wrapped up in blankets. No nausea or vomiting. Lungs with diffuse fine cellophane type rales Heart is regular rate and rhythm. Abdomen is distended soft with some mild tenderness in right lower quadrant but no guarding or rebound tenderness normal active bowel sounds. Objective Objective Clinical Data: Abnormal lab results 10/10/19 10/10/19 Range/Units 08:58 08:58 WBC 1.30 L* (4.4-10.8) 10^3/uL RBC 3.22 L (4.36-5.78) 10^6/uL Hgb 9.7 L (13.5-17.5) g/dL Hct 29.4 L (40.0-50.0) % RDW 15.8 H (11.8-14.1) % Plt Count 31 L (130-400) 10^3/uL MPV 11.2 H (8.0-11.0) fL Absolute Neutrophils 0.91 L (1.2-6.7) 10^3/uL Absolute Lymphocytes 0.17 L (1.2-3.4) 10^3/uL Chloride 109 H (98-107) mmol/L Glucose 187 H (74-106) mg/dL Calcium 7.9 L (8.5-10.1) mg/dL Total Bilirubin 1.1 H (0.2-1.0) mg/dL AST 38 H (15-37) U/L ALT 6 L (16-63) U/L Alkaline Phosphatase 144 H (46-116) U/L Total Protein 6.0 L (6.4-8.2) g/dL Albumin 2.7 L (3.4-5.0) g/dL Vital Signs Temperature 36 C L 10/10/19 09:29 Temperature Source Tympanic 10/10/19 09:29 Pulse 65 10/10/19 09:29 Pulse Rhythm Regular 10/10/19 09:34 Pulse 72 10/08/19 19:01 Respiratory Rate 18 10/10/19 09:29 Respiratory Effort 10/10/19 09:34 Respiratory Depth Normal 10/10/19 09:34 Respiratory Pattern Normal 10/10/19 09:34 Blood Pressure 132/81 10/10/19 09:29 Blood Pressure Mean 72 10/08/19 19:01 Blood Pressure Position Sitting 10/08/19 10:19 Pulse Oximetry 100 10/10/19 09:29 Oxygen Delivery Method Room Air 10/10/19 09:29 Oxygen Flow Rate 0 10/10/19 09:29 Pain Level 0 10/10/19 09:29 Intake & Output 10/09/19 10/10/19 10/10/19 23:59 11:59 23:59 Intake Total 2230 / 2330 100 / 100 Output Total 800 / 1150 650 / 650 Balance 1430 / 1180 -550 / -550 Intake: IV 1979 Oral 250 / 300 100 / 100 Output: Urine 800 / 1150 650 / 650 Other: Urine Color Dark Vi Yellow Yellow Urine Appearance Clear Clear Clear Urine Odor Normal Normal Normal Strain Urine Result Negative-No Stones/Gravel Negative-No Stones/Gravel Comment Void x1 in the toilet. Briefs were changed. Urine was strained; no sediment or calculi noted. Void x1 in the toilet. Briefs were changed. No hat; unable to strain urine. Stool Size Moderate Small Stool Characteristics Soft Soft Soft Liquid Brown Liquid Brown Green Voiding Methods Toilet Toilet Toilet Laboratory Results WBC 1.30 10^3/uL (4.4-10.8) L* 10/10/19 08:58 RBC 3.22 10^6/uL (4.36-5.78) L 10/10/19 08:58 Hgb 9.7 g/dL (13.5-17.5) L 10/10/19 08:58 Hct 29.4 % (40.0-50.0) L 10/10/19 08:58 MCV 91.3 fL (80-95) 10/10/19 08:58 MCH 30.1 pg (27.0-33.0) 10/10/19 08:58 MCHC 33.0 % (32.0-36.0) 10/10/19 08:58 RDW 15.8 % (11.8-14.1) H 10/10/19 08:58 Plt Count 31 10^3/uL (130-400) L 10/10/19 08:58 MPV 11.2 fL (8.0-11.0) H 10/10/19 08:58 Immature Gran % 0.8 10/10/19 08:58 Neutrophils % 69.9 10/10/19 08:58 Lymphocytes % 13.1 10/10/19 08:58 Monocytes % 9.2 10/10/19 08:58 Eosinophils % 6.2 10/10/19 08:58 Basophils % 0.8 10/10/19 08:58 Nucleated RBC % 0 % 10/10/19 08:58 Absolute Neutrophils 0.91 10^3/uL (1.2-6.7) L 10/10/19 08:58 Absolute Lymphocytes 0.17 10^3/uL (1.2-3.4) L 10/10/19 08:58 Absolute Monocytes 0.12 10^3/uL (0.1-0.8) 10/10/19 08:58 Absolute Eosinophils 0.08 10^3/uL (0.0-0.7) 10/10/19 08:58 Absolute Basophils 0.01 10^3/uL (0.0-0.2) 10/10/19 08:58 RBC Morphology See below 10/10/19 08:58 Ovalocytes 2+ 10/10/19 08:58 Sodium 140 mmol/L (136-145) 10/10/19 08:58 Potassium 4.5 mmol/L (3.5-5.1) 10/10/19 08:58 Chloride 109 mmol/L (98-107) H 10/10/19 08:58 Carbon Dioxide 23.8 mmol/L (21.0-32.0) 10/10/19 08:58 Anion Gap 7.2 mmol/L (3-11) 10/10/19 08:58 BUN 18 mg/dL (7-18) 10/10/19 08:58 Creatinine 0.84 mg/dL (0.70-1.30) 10/10/19 08:58 Estimated GFR/1.73 m2 >= 60.00 (mL/min/1.73m2) 10/10/19 08:58 Glucose 187 mg/dL (74-106) H 10/10/19 08:58 Calcium 7.9 mg/dL (8.5-10.1) L 10/10/19 08:58 Total Bilirubin 1.1 mg/dL (0.2-1.0) H 10/10/19 08:58 AST 38 U/L (15-37) H 10/10/19 08:58 ALT 6 U/L (16-63) L 10/10/19 08:58 Alkaline Phosphatase 144 U/L (46-116) H 10/10/19 08:58 Total Protein 6.0 g/dL (6.4-8.2) L 10/10/19 08:58 Albumin 2.7 g/dL (3.4-5.0) L 10/10/19 08:58 Urine Color Dark yellow (Yellow) 10/08/19 12:20 Urine Clarity Cloudy (Clear) 10/08/19 12:20 Urine pH 6.0 (5-8) 10/08/19 12:20 Ur Specific [place] 1.025 (1.005-1.025) 10/08/19 12:20 Urine Protein Trace mg/dL (Negative) H 10/08/19 12:20 Urine Ketones Negative mg/dL (Negative) 10/08/19 12:20 Urine Blood Large (Negative) H 10/08/19 12:20 Urine Nitrite Negative (Negative) 10/08/19 12:20 Urine Bilirubin Negative (Negative) 10/08/19 12:20 Urine Urobilinogen 0.2 EU/dL (Up TO 0.2) 10/08/19 12:20 Ur Leukocyte Esterase Negative (Negative) 10/08/19 12:20 Urine RBC >50 HPF (0-2) H 10/08/19 12:20 Urine WBC 10-20 HPF (0-5) H 10/08/19 12:20 Ur Epithelial Cells Negative HPF (Negative) 10/08/19 12:20 Urine Crystals Negative HPF (Negative) 10/08/19 12:20 Urine Bacteria Moderate HPF (Negative) 10/08/19 12:20 Urine Casts 0-2 coarse granular LPF (Negative) 10/08/19 12:20 Urine Mucus Moderate (Negative) 10/08/19 12:20 Urine Other Rare renal (Negative) 10/08/19 12:20 Ur Culture Indicated? Yes 10/08/19 12:20 Urine Glucose Negative mg/dL (Negative) 10/08/19 12:20 COVID-19 PCR Negative (Negative) 10/08/19 19:05 Nasopharyn COVID-19 PCR Not Applicable 10/08/19 19:05 Ref Test Perform Site [facility] lab 10/08/19 19:05
[2019-10-10] MEDS: Cholestyramine/Aspartame PKT 1 EACH PO ×2 (16:05→20:14)
[2019-10-10] MEDS: Psyllium PKT 1 EACH PO (16:05)
[2019-10-10 16:21] VITALS: BP 168/75; PULSE 65; RESP 19; TEMP 36.6; O2SAT 100
--- NOTE | 2019-10-10 16:56 | CMPROGNOTE_ITS ---
- If Service Date Differs Date of service: 10/10/19 Time of Service: 16:56 Care Management Progress Note S/O: Drake was sitting up in his chair when CM met with him. He reported that he was feeling good today. Per report, he has not yet passed a stone. Dr. Garcias is consulted and will plan to meet with him tomorrow, if available. CM will continue to follow. A: Drake is a 79 year old male admitted to [facility] on 10/09/19 for nephrolithiasis. P: Anticipate Drake will return home once medically stable with a resumption of [facility] moderate needs. His pillowcase maker, Stacie Sifuentes, from [facility] will follow him in the community. He will follow up with his PCP, as recommended. CM will coordinate [facility] transportation for him to return. CM will continue to follow.
[2019-10-10] MEDS: Loperamide 2 MG CAP 4 MG PO (18:43)
[2019-10-10] MEDS: Lactobacillus Acidophilus CAP 1 CAP PO (20:14)
[2019-10-10] MEDS: Normal Saline 1,000 ML 65 ML IV (23:25)
[2019-10-10] MEDS: Melatonin 3 MG TAB 9 MG PO (23:32)
[2019-10-11 00:06] VITALS: BP 122/62; PULSE 65; RESP 18; TEMP 37.2; O2SAT 97
[2019-10-11 07:00] VITALS: BP 166/65; PULSE 60; RESP 19; TEMP 36; O2SAT 100
[2019-10-11] MEDS: Carvedilol 3.125 MG TAB PO ×2 (07:15→16:56)
[2019-10-11] MEDS: Cholestyramine/Aspartame PKT 1 EACH PO ×3 (07:15→19:43)
[2019-10-11 08:12] LABS: Abs Immature Grans 0.01 10^3/uL (0.0-0.06); Absolute Eosinophil Count 0.12 10^3/uL (0.0-0.7); Absolute Lymphocyte Count 0.21 10^3/uL (1.2-3.4); Absolute Monocyte Count 0.17 10^3/uL (0.1-0.8); Absolute Neutrophil Count 1.07 10^3/uL (1.2-6.7); Eosinophils % 7.6; HCT 30.2 % (40.0-50.0); HGB 9.8 g/dL (13.5-17.5); Immature Grans % 0.6; Lymphocytes % 13.3; MCH 29.8 pg (27.0-33.0); MCHC 32.5 % (32.0-36.0); MCV 91.8 fL (80-95); MPV 13.2 fL (8.0-11.0); Monocytes % 10.8; Neutrophils % 67.7; Nucleated RBC 0 %; RBC 3.29 10^6/uL (4.36-5.78); RDW 15.4 % (11.8-14.1); RDW-SD 52.4 fL
[2019-10-11 08:19] LABS: BUN 12 mg/dL (7-18); CREATININE 0.86 mg/dL (0.70-1.30); Chloride 108 mmol/L (98-107); Glucose 104 mg/dL (74-106); Potassium 4.2 mmol/L (3.5-5.1); Sodium 138 mmol/L (136-145)
[2019-10-11 08:23] LABS: Ammonia 19 umol/L (11-32)
[2019-10-11 08:24] LABS: INR 1.3 (0.9-1.1); Prothrombin Time 13.3 sec (9.3-11.0)
[2019-10-11] MEDS: Tamsulosin 0.4 MG CAPCR PO ×2 (08:37→19:45)
[2019-10-11] MEDS: Lactobacillus Acidophilus CAP 1 CAP PO ×3 (08:37→19:45)
[2019-10-11 08:40] LABS: WBC 1.58 10^3/uL (4.4-10.8)
[2019-10-11 08:41] LABS: Platelet Count 31 10^3/uL (130-400)
[2019-10-11 08:42] LABS: Diff Comment Agrees w/ Instrument; Ovalocytes 2+; Poikilocytes 1+; Polychromasia Present
[2019-10-11] MEDS: Psyllium PKT 1 EACH PO (09:37)
--- NOTE | 2019-10-11 09:40 | CMPROGNOTE_ITS ---
- If Service Date Differs Date of service: 10/11/19 Time of Service: 09:40 Care Management Progress Note S/O: Drake was sitting in his chair when CM met with him. He reported that he met with Dr. Garcias today which went well. He stated that Dr. Garcias will place a ureteral stent today or tomorrow in an attempt to relieve his hydronephrosis. He may then be able to discharge home with follow up with Urology out patient. CM will continue to follow. A: Drake is a 79 year old male admitted to [facility] on 10/09/19 for nephrolithiasis. P: Anticipate Drake will return home once medically stable with a resumption of [facility] moderate needs. His correctional counselor/case manager, Stacie Sifuentes, from [facility] will follow him in the community. He will follow up with his PCP, as recommended. CM will coordinate RCT transportation for him to return. CM will continue to follow.
--- NOTE | 2019-10-11 10:12 | UCONE_ITS ---
Date of service: 10/11/19 Time of Service: 10:12 Assessment and Plan Assessment and plan (1) Calculus of proximal right ureter: Status: Acute Assessment and plan: He has no signs or symptoms of sepsis at this point, but he does have persistent pain. I think the most reasonable option would be to place a ureteral stent to relieve his hydronephrosis. I do not believe that I would attempt ureteroscopy immediately. He may still be able to pass the stone with the stent in place. If he is still unable to pass the stone, at least the stent would cause the ureter to dilate and make a staged ureteroscopy more technically easy. I will ask my office to begin working on scheduling a cystoscopy, right retrograde pyelogram and right stent placement. History of Present Illness History of Present Illness Chief Complaint: Right ureteral stone Narrative: This is a 79-year-old gentleman who has multiple medical issues including diabetes mellitus, Parkinson's, cirrhosis and pancytopenia. I had seen him previously for urinary incontinence. He presented to the emergency room 3 days ago with right-sided abdominal pain. He was found to have a 5 mm right proximal ureteral stone. He did have an abnormal urinalysis and there was some concern that he might need an urgent/holden gent stent placed. As I was out of town last week, phone consultations were obtained with other urology services. A transfer to the [facility] was recommended, but the patient refused. He has been monitored here since that time. His urine culture ultimately grew no bacteria. He has remained afebrile, but has had intermittent flank pain on the right. This morning, he describes his pain as being 7-8 out of 10. He has not seen any gross hematuria. His pain is not changed in location. He has not passed any stone fragments as far as he is aware. Review of Systems Constitutional Constitutional: Denies fever(s) Cardiovascular Cardiovascular: Denies chest pain and Denies irregular heart rhythm Respiratory Respiratory: Denies hemoptysis Gastrointestinal Gastrointestinal: Reports diarrhea and Reports nausea Musculoskeletal Musculoskeletal: Reports back pain Hematologic/Lymphatic Hematologic/Lymphatic: Denies easy bleeding [facility] Medical History Anxiety (Chronic) Cirrhosis of liver (Chronic) On beta blockers; Under care of Dr. Joe. Colon cancer (Chronic) Multiple polypectomies. 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 Liver cirrhosis MGUS (monoclonal gammopathy of unknown significance) (Chronic) Mild cognitive impairment (Acute 08/17/15) HANS (obstructive sleep apnea) Pancytopenia (Chronic) Thought to be secondary to liver cirrhosis and splenic sequestratioin. Please note bone marrow biopsy was negative. Parkinson disease Perirectal abscess (Resolved) Prostate cancer (Chronic 05/24/02) S/P radiation, Lupron, now on Zoladex. Restless leg syndrome (Acute 10/24/16) Streptococcal bacteremia (Resolved) s/p removal of buried central venous access device. no bleeding. no pain. cont care. Tubulovillous adenoma of colon (Resolved 11/21/15) Ventral hernia (Chronic) Visual hallucination (Inactive) Surgical History BONE MARROW BIOPSY (11/25/14) LISSET Colectomy 1992 colonoscopy (11/21/15) H/O ventral hernia repair (Chronic) History of bowel resection (Chronic) History of Leonid fundoplication (Chronic) S/P cholecystectomy (Acute) S/P ear surgery (Acute) Family History Maternal Cousin Colon cancer Maternal Cousin Colon cancer Mother Cervical cancer Social History Smoking/Tobacco Use Status: Former Tobacco Use Quit Date: 06/17/94 Pack-years: 35 Second Hand Exposure: No Alcohol Intake: former Drug use: Never Substance use type: does not use Household members: none Housing: apartment current occupation: Retired Seatbelt use: always Do you feel safe at home: Yes Do you feel safe in your relationship?: Yes Additional Social history: Exam Narrative Exam Narrative: He does not appear septic or toxic His vital signs are documented elsewhere His abdomen is soft with no peritoneal signs He is awake, alert and oriented. In reviewing his lab work, his renal function is normal. He has pancytopenia, so it is difficult to interpret his CBC results. His white blood count was slightly increased from baseline on admission, but has returned to baseline since. I reviewed his CT scans on the PACS system. I was able to see the stone in his right kidney dating back to 2014. It remained in the lower pole until his current admission when it moved just below the ureteropelvic junction. Results Last Vital Signs Temp 36 C L 10/11/19 07:00 Pulse 60 10/11/19 07:00 Resp 19 10/11/19 07:00 BP 166/65 H 10/11/19 07:00 Pulse Ox 100 10/11/19 07:00 Labs Result diagrams: 10/11/19 07:55 10/11/19 07:55 Labs: Laboratory Results - last 24 hr 10/11/19 10/11/19 10/11/19 07:55 07:55 07:55 WBC 1.58 L* RBC 3.29 L Hgb 9.8 L Hct 30.2 L MCV 91.8 MCH 29.8 MCHC 32.5 RDW 15.4 H Plt Count 31 L MPV 13.2 H Immature Gran % 0.6 Neutrophils % 67.7 Lymphocytes % 13.3 Monocytes % 10.8 Eosinophils % 7.6 Basophils % 0.0 Nucleated RBC % 0 Absolute Neutrophils 1.07 L Absolute Lymphocytes 0.21 L Absolute Monocytes 0.17 Absolute Eosinophils 0.12 Absolute Basophils 0.00 RBC Morphology See below Polychromasia Present Poikilocytosis 1+ Ovalocytes 2+ PT INR Sodium 138 Potassium 4.2 Chloride 108 H Carbon Dioxide 24.0 Anion Gap 6.0 BUN 12 D Creatinine 0.86 Estimated GFR/1.73 m2 >= 60.00 Glucose 104 D Calcium 8.0 L Ammonia 19 10/11/19 07:55 WBC RBC Hgb Hct MCV MCH MCHC RDW Plt Count MPV Immature Gran % Neutrophils % Lymphocytes % Monocytes % Eosinophils % Basophils % Nucleated RBC % Absolute Neutrophils Absolute Lymphocytes Absolute Monocytes Absolute Eosinophils Absolute Basophils RBC Morphology Polychromasia Poikilocytosis Ovalocytes PT 13.3 H INR 1.3 H Sodium Potassium Chloride Carbon Dioxide Anion Gap BUN Creatinine Estimated GFR/1.73 m2 Glucose Calcium Ammonia
--- NOTE | 2019-10-11 10:57 | W.INDIABCONS ---
Date of service: 10/11/19 Time of Service: 10:57 Diabetes Inpatient Consult DESCRIPTION/ASSESSMENT: 79 year old male admitted with hydrohephrosis, awaiting urology consult. PMH: HTN, DM, Parkinson's Dx, liver cirrohsis, Hx of prostate CA, colon CA. Most recent A1C: 6.6% (07/2019). BS well controlled since admit. Attempted to met with Drake today, but he stated he does not want to talk about diabetes today. Following Diabetic Diet with 100% meal completion. Labs indicate well controlled DM. Not at risk for nutritional decline at this time. INTERVENTION: Attempted to provide diabetes education- pt refused PLAN: Continue current meal plan, will monitor PO intake, labs, weight Time Spent in Nutritional Counseling and Treatment: 5min spent face to face
--- NOTE | 2019-10-11 13:06 | PGE_ITS ---
Date of Service Date of service: 10/11/19 Time of Service: 13:07 Assessment and Plan Assessment and plan (1) Diarrhea: Status: Acute Assessment and plan: His C. difficile screen was negative. Patient's diarrhea has improved w/ imodium and Questran Qualifiers: Diarrhea type: presumed infectious Qualified Code(s): R19.7 - Diarrhea, unspecified (2) Right nephrolithiasis: Status: Acute Assessment and plan: 5 mm right UVP stone with hydronephrosis of a mild to moderate nature. So far patient's been unable to pass this despite Flomax and IV fluids. I have consulted with urology. Dr. Garcias plans on performing cystoureteroscopy and stent tomorrow. (3) Urinary tract infection: Status: Ruled-out Assessment and plan: Urine culture from October 08, 2019 was finalized is showing less than 10,000 colonies of gram-positive edwina. Rocephin was dc'ed yesterday. Qualifiers: Urinary tract infection type: site unspecified Hematuria presence: with hematuria Qualified Code(s): N39.0 - Urinary tract infection, site not specified; R31.9 - Hematuria, unspecified (4) HTN (hypertension): Status: None Assessment and plan: BP remains elevated. I have added losartan 25 mg daily to his regimen. Will monitor his BMP. Qualifiers: Hypertension type: essential hypertension Qualified Code(s): I10 - Essential (primary) hypertension (5) Parkinson disease: Status: None Assessment and plan: Cont carvidopa-levidopa Controlled. 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 Continue to monitor. No evidence of acute bleeding. Patient seems to have no understanding of his disease process. I specifically asked him if he had a bone marrow problems and he denied the same. (7) Cirrhosis of liver: Status: Chronic Assessment and plan: Unclear as to the etiology of his cirrhosis. CT scan shows nodular cirrhotic changes along with ascites. Apparently this is a known diagnosis although he seems to have no clue is because and seems to think that this was fixed when he had his esophageal varices treated by his GI specialist Dr. Joe at [facility]. Qualifiers: Hepatic cirrhosis type: unspecified hepatic cirrhosis Ascites presence: with ascites Qualified Code(s): K74.60 - Unspecified cirrhosis of liver; R18.8 - Other ascites (8) Type 2 diabetes mellitus: Status: Chronic Assessment and plan: Not on any home diabetic medications. Glucose levels over the last 24 hours have ranged between 120-210. We will continue to monitor his glucose before meals and at bedtime and cover with sliding scale insulin as needed. Last A1c was 6.6% in July Qualifiers: Diabetes mellitus exterminator helper termite insulin use: without exterminator helper termite use Diabetes mellitus complication status: without complication Qualified Code(s): E11.9 - Type 2 diabetes mellitus without complications Subjective Subjective Interval history since last seen: Patient states that his bowels are improving w/ his stools becoming more formed. He still has his RLQ and R. flank pain. Dr. Garcias saw him this a.m. and will schedule him for cystoureteroscopy and stent. Exam Narrative Exam Narrative: elderly male who sitting up in his chair. He seems more lively today and not toxic appearing as he did yesterday. He denies any nausea or vomiting. Lungs with diffuse fine cellophane type rales Heart is regular rate and rhythm. Abdomen is distended soft with some mild tenderness in right lower quadrant but no guarding or rebound tenderness normal active bowel sounds. Objective Objective Clinical Data: Abnormal lab results 10/11/19 10/11/19 10/11/19 Range/Units 07:55 07:55 07:55 WBC 1.58 L* (4.4-10.8) 10^3/uL RBC 3.29 L (4.36-5.78) 10^6/uL Hgb 9.8 L (13.5-17.5) g/dL Hct 30.2 L (40.0-50.0) % RDW 15.4 H (11.8-14.1) % Plt Count 31 L (130-400) 10^3/uL MPV 13.2 H (8.0-11.0) fL Absolute Neutrophils 1.07 L (1.2-6.7) 10^3/uL Absolute Lymphocytes 0.21 L (1.2-3.4) 10^3/uL PT 13.3 H (9.3-11.0) sec INR 1.3 H (0.9-1.1) Chloride 108 H (98-107) mmol/L Calcium 8.0 L (8.5-10.1) mg/dL Vital Signs Temperature 36 C L 10/11/19 07:00 Temperature Source Tympanic 10/11/19 07:00 Pulse 60 10/11/19 07:00 Pulse Rhythm Regular 10/11/19 07:46 Pulse 72 10/08/19 19:01 Respiratory Rate 19 10/11/19 07:00 Respiratory Effort 10/11/19 07:46 Respiratory Depth Normal 10/11/19 07:46 Respiratory Pattern Normal 10/11/19 07:46 Blood Pressure 166/65 H 10/11/19 07:00 Blood Pressure Mean 72 10/08/19 19:01 Blood Pressure Position Sitting 10/08/19 10:19 Pulse Oximetry 100 10/11/19 07:00 Oxygen Delivery Method Room Air 10/11/19 07:00 Oxygen Flow Rate 0 10/11/19 07:00 Pain Level 6 10/11/19 07:00 Intake & Output 10/10/19 10/11/19 10/11/19 23:59 11:59 23:59 Intake Total 1000.000 / 1100.000 300 / 300 Output Total 300 / 950 1300 / 1500 200 / 1500 Balance 700.000 / 150.000 -1000 / -1200 -200 / -1200 Intake: IV 1000.000 / 1000.000 Oral 300 / 300 Output: Urine 300 / 950 1300 / 1500 200 / 1500 Other: Urine Color Dark Vi Yellow Urine Appearance Clear Clear Urine Odor Normal Normal Strain Urine Result Negative-No Stones/Gravel Comment Void x1 in the toilet. Briefs were changed. No hat; unable to strain urine. straining for stones, gravel like sediments noted at this time Stool Size Moderate Moderate Stool Characteristics Soft Soft Brown Formed Brown Voiding Methods Toilet Toilet Toilet Laboratory Results WBC 1.58 10^3/uL (4.4-10.8) L* 10/11/19 07:55 RBC 3.29 10^6/uL (4.36-5.78) L 10/11/19 07:55 Hgb 9.8 g/dL (13.5-17.5) L 10/11/19 07:55 Hct 30.2 % (40.0-50.0) L 10/11/19 07:55 MCV 91.8 fL (80-95) 10/11/19 07:55 MCH 29.8 pg (27.0-33.0) 10/11/19 07:55 MCHC 32.5 % (32.0-36.0) 10/11/19 07:55 RDW 15.4 % (11.8-14.1) H 10/11/19 07:55 Plt Count 31 10^3/uL (130-400) L 10/11/19 07:55 MPV 13.2 fL (8.0-11.0) H 10/11/19 07:55 Immature Gran % 0.6 10/11/19 07:55 Neutrophils % 67.7 10/11/19 07:55 Lymphocytes % 13.3 10/11/19 07:55 Monocytes % 10.8 10/11/19 07:55 Eosinophils % 7.6 10/11/19 07:55 Basophils % 0.0 10/11/19 07:55 Nucleated RBC % 0 % 10/11/19 07:55 Absolute Neutrophils 1.07 10^3/uL (1.2-6.7) L 10/11/19 07:55 Absolute Lymphocytes 0.21 10^3/uL (1.2-3.4) L 10/11/19 07:55 Absolute Monocytes 0.17 10^3/uL (0.1-0.8) 10/11/19 07:55 Absolute Eosinophils 0.12 10^3/uL (0.0-0.7) 10/11/19 07:55 Absolute Basophils 0.00 10^3/uL (0.0-0.2) 10/11/19 07:55 RBC Morphology See below 10/11/19 07:55 Polychromasia Present 10/11/19 07:55 Poikilocytosis 1+ 10/11/19 07:55 Ovalocytes 2+ 10/11/19 07:55 PT 13.3 sec (9.3-11.0) H 10/11/19 07:55 INR 1.3 (0.9-1.1) H 10/11/19 07:55 Sodium 138 mmol/L (136-145) 10/11/19 07:55 Potassium 4.2 mmol/L (3.5-5.1) 10/11/19 07:55 Chloride 108 mmol/L (98-107) H 10/11/19 07:55 Carbon Dioxide 24.0 mmol/L (21.0-32.0) 10/11/19 07:55 Anion Gap 6.0 mmol/L (3-11) 10/11/19 07:55 BUN 12 mg/dL (7-18) D 10/11/19 07:55 Creatinine 0.86 mg/dL (0.70-1.30) 10/11/19 07:55 Estimated GFR/1.73 m2 >= 60.00 (mL/min/1.73m2) 10/11/19 07:55 Glucose 104 mg/dL (74-106) D 10/11/19 07:55 Calcium 8.0 mg/dL (8.5-10.1) L 10/11/19 07:55 Total Bilirubin 1.1 mg/dL (0.2-1.0) H 10/10/19 08:58 AST 38 U/L (15-37) H 10/10/19 08:58 ALT 6 U/L (16-63) L 10/10/19 08:58 Alkaline Phosphatase 144 U/L (46-116) H 10/10/19 08:58 Ammonia 19 umol/L (11-32) 10/11/19 07:55 Total Protein 6.0 g/dL (6.4-8.2) L 10/10/19 08:58 Albumin 2.7 g/dL (3.4-5.0) L 10/10/19 08:58 Urine Color Dark yellow (Yellow) 10/08/19 12:20 Urine Clarity Cloudy (Clear) 10/08/19 12:20 Urine pH 6.0 (5-8) 10/08/19 12:20 Ur Specific [place] 1.025 (1.005-1.025) 10/08/19 12:20 Urine Protein Trace mg/dL (Negative) H 10/08/19 12:20 Urine Ketones Negative mg/dL (Negative) 10/08/19 12:20 Urine Blood Large (Negative) H 10/08/19 12:20 Urine Nitrite Negative (Negative) 10/08/19 12:20 Urine Bilirubin Negative (Negative) 10/08/19 12:20 Urine Urobilinogen 0.2 EU/dL (Up TO 0.2) 08/21/20 12:20 Ur Leukocyte Esterase Negative (Negative) 10/08/19 12:20 Urine RBC >50 HPF (0-2) H 10/08/19 12:20 Urine WBC 10-20 HPF (0-5) H 10/08/19 12:20 Ur Epithelial Cells Negative HPF (Negative) 10/08/19 12:20 Urine Crystals Negative HPF (Negative) 10/08/19 12:20 Urine Bacteria Moderate HPF (Negative) 10/08/19 12:20 Urine Casts 0-2 coarse granular LPF (Negative) 10/08/19 12:20 Urine Mucus Moderate (Negative) 10/08/19 12:20 Urine Other Rare renal (Negative) 10/08/19 12:20 Ur Culture Indicated? Yes 10/08/19 12:20 Urine Glucose Negative mg/dL (Negative) 10/08/19 12:20 COVID-19 PCR Negative (Negative) 10/08/19 19:05 Nasopharyn COVID-19 PCR Not Applicable 10/08/19 19:05 Ref Test Perform Site Michelle [facility] lab 10/08/19 19:05
[2019-10-11] MEDS: Losartan 25 MG TAB PO (13:38)
[2019-10-11] MEDS: Normal Saline 1,000 ML 65 ML IV (13:44)
[2019-10-11 15:42] VITALS: BP 170/76; PULSE 76; RESP 18; TEMP 36.7; O2SAT 99
--- NOTE | 2019-10-11 15:52 | CHAPLAIN ---
Drake was sitting up in his chair when I visited. He said he is waiting to hear if he will have a stent placed today or tomorrow and expects to be discharged after that. He lives at the [facility] and was getting ready to cook a corn roast for friends when he became ill. Drake's is at [facility]. He has friends at the [facility] and one with whom he shares meals. Drake has been attending the [facility] [employer] and recently has been watching the service when it airs on the local cable channel. There currently isn't a russian language professor at the [facility], but jewish members are aware that Drake is here. Drake said he is from [place] originally, and was a member of the [employer], but did not find [facility]'s too friendly when he moved here. He became a [place] citizen last year.
[2019-10-11] MEDS: Insulin Aspart 300 UNITS/3 ML PEN SC (16:56)
[2019-10-11 19:45] VITALS: BP 136/59; PULSE 67; RESP 17; TEMP 37.1; O2SAT 100
[2019-10-11] MEDS: Ketorolac 15 MG/ML VIAL IVP (20:15)
[2019-10-12] VITALS (10 sets, daily range): BP systolic 113–162; BP diastolic 41–77; PULSE 61–76; RESP 17–22; TEMP 36.1–36.8; O2SAT 96–100
[2019-10-12] MEDS: Normal Saline 1,000 ML 65 ML IV ×2 (04:53→17:59)
--- NOTE | 2019-10-12 07:35 | W.PM.PROGNOT ---
Date of Service Date of service: 10/12/19 Time of Service: 07:35 Assessment and Plan Assessment and plan (1) Calculus of proximal right ureter: Status: Acute Assessment and plan: We will go ahead and place a ureteral stent under sedation today. Is on his he has no additional medical issues, I would expect that he will be able to be discharged tomorrow. We will have a plan in place for a return date for ureteroscopy (if he is unable to pass the stone with the stent in place). Subjective Subjective Interval history since last seen: He is continued to have intermittent pain. He has no fevers or chills. Exam Narrative Exam Narrative: He does not appear septic or toxic His vital signs are documented elsewhere He is awake and alert Objective Objective Clinical Data: Abnormal lab results 10/11/19 10/11/19 10/11/19 Range/Units 07:55 07:55 07:55 WBC 1.58 L* (4.4-10.8) 10^3/uL RBC 3.29 L (4.36-5.78) 10^6/uL Hgb 9.8 L (13.5-17.5) g/dL Hct 30.2 L (40.0-50.0) % RDW 15.4 H (11.8-14.1) % Plt Count 31 L (130-400) 10^3/uL MPV 13.2 H (8.0-11.0) fL Absolute Neutrophils 1.07 L (1.2-6.7) 10^3/uL Absolute Lymphocytes 0.21 L (1.2-3.4) 10^3/uL PT 13.3 H (9.3-11.0) sec INR 1.3 H (0.9-1.1) Chloride 108 H (98-107) mmol/L Calcium 8.0 L (8.5-10.1) mg/dL Vital Signs Temperature 36.8 C 10/12/19 03:00 Temperature Source Tympanic 10/12/19 03:00 Pulse 65 10/12/19 03:00 Pulse Rhythm Regular 10/11/19 19:30 Pulse 72 10/08/19 19:01 Respiratory Rate 17 10/12/19 03:00 Respiratory Effort Non-Labored 10/11/19 19:30 Respiratory Depth Normal 10/11/19 19:30 Respiratory Pattern Normal 10/11/19 19:30 Blood Pressure 124/69 10/12/19 03:00 Blood Pressure Mean 72 10/08/19 19:01 Blood Pressure Position Sitting 10/08/19 10:19 Pulse Oximetry 99 10/12/19 03:00 Oxygen Delivery Method Room Air 10/12/19 03:00 Oxygen Flow Rate 0 10/12/19 03:00 Pain Level 9 10/11/19 20:15 Intake & Output 10/11/19 10/11/19 10/12/19 11:59 23:59 11:59 Intake Total 300 / 9383.034 5246.583 / 1710.583 984.75 / 984.75 Output Total 1300 / 2850 1550 / 2850 600 / 600 Balance -1000 / -1139.417 -139.417 / -1139.417 384.75 / 384.75 Intake: IV 930.583 / 930.583 984.75 / 984.75 Oral 300 / 780 480 / 780 Output: Urine 1300 / 2850 1550 / 2850 600 / 600 Other: Urine Color Yellow Yellow Yellow Urine Appearance Clear Clear Clear Urine Odor Normal Normal Normal Strain Urine Result Negative-No Stones/Gravel Negative-No Stones/Gravel Negative-No Stones/Gravel Comment straining for stones, gravel like sediments noted at this time Stool Size Moderate Small Stool Characteristics Soft Soft Formed Formed Brown Brown Voiding Methods Toilet Urinal Urinal Laboratory Results WBC 1.58 10^3/uL (4.4-10.8) L* 10/11/19 07:55 RBC 3.29 10^6/uL (4.36-5.78) L 10/11/19 07:55 Hgb 9.8 g/dL (13.5-17.5) L 10/11/19 07:55 Hct 30.2 % (40.0-50.0) L 10/11/19 07:55 MCV 91.8 fL (80-95) 10/11/19 07:55 MCH 29.8 pg (27.0-33.0) 10/11/19 07:55 MCHC 32.5 % (32.0-36.0) 10/11/19 07:55 RDW 15.4 % (11.8-14.1) H 10/11/19 07:55 Plt Count 31 10^3/uL (130-400) L 10/11/19 07:55 MPV 13.2 fL (8.0-11.0) H 10/11/19 07:55 Immature Gran % 0.6 10/11/19 07:55 Neutrophils % 67.7 10/11/19 07:55 Lymphocytes % 13.3 10/11/19 07:55 Monocytes % 10.8 10/11/19 07:55 Eosinophils % 7.6 10/11/19 07:55 Basophils % 0.0 10/11/19 07:55 Nucleated RBC % 0 % 10/11/19 07:55 Absolute Neutrophils 1.07 10^3/uL (1.2-6.7) L 10/11/19 07:55 Absolute Lymphocytes 0.21 10^3/uL (1.2-3.4) L 10/11/19 07:55 Absolute Monocytes 0.17 10^3/uL (0.1-0.8) 10/11/19 07:55 Absolute Eosinophils 0.12 10^3/uL (0.0-0.7) 10/11/19 07:55 Absolute Basophils 0.00 10^3/uL (0.0-0.2) 10/11/19 07:55 RBC Morphology See below 10/11/19 07:55 Polychromasia Present 10/11/19 07:55 Poikilocytosis 1+ 10/11/19 07:55 Ovalocytes 2+ 10/11/19 07:55 PT 13.3 sec (9.3-11.0) H 10/11/19 07:55 INR 1.3 (0.9-1.1) H 10/11/19 07:55 Sodium 138 mmol/L (136-145) 10/11/19 07:55 Potassium 4.2 mmol/L (3.5-5.1) 10/11/19 07:55 Chloride 108 mmol/L (98-107) H 10/11/19 07:55 Carbon Dioxide 24.0 mmol/L (21.0-32.0) 10/11/19 07:55 Anion Gap 6.0 mmol/L (3-11) 10/11/19 07:55 BUN 12 mg/dL (7-18) D 10/11/19 07:55 Creatinine 0.86 mg/dL (0.70-1.30) 10/11/19 07:55 Estimated GFR/1.73 m2 >= 60.00 (mL/min/1.73m2) 10/11/19 07:55 Glucose 104 mg/dL (74-106) D 10/11/19 07:55 Calcium 8.0 mg/dL (8.5-10.1) L 10/11/19 07:55 Total Bilirubin 1.1 mg/dL (0.2-1.0) H 10/10/19 08:58 AST 38 U/L (15-37) H 10/10/19 08:58 ALT 6 U/L (16-63) L 10/10/19 08:58 Alkaline Phosphatase 144 U/L (46-116) H 10/10/19 08:58 Ammonia 19 umol/L (11-32) 10/11/19 07:55 Total Protein 6.0 g/dL (6.4-8.2) L 10/10/19 08:58 Albumin 2.7 g/dL (3.4-5.0) L 10/10/19 08:58 Urine Color Dark yellow (Yellow) 10/08/19 12:20 Urine Clarity Cloudy (Clear) 10/08/19 12:20 Urine pH 6.0 (5-8) 10/08/19 12:20 Ur Specific [place] 1.025 (1.005-1.025) 10/08/19 12:20 Urine Protein Trace mg/dL (Negative) H 10/08/19 12:20 Urine Ketones Negative mg/dL (Negative) 10/08/19 12:20 Urine Blood Large (Negative) H 10/08/19 12:20 Urine Nitrite Negative (Negative) 10/08/19 12:20 Urine Bilirubin Negative (Negative) 10/08/19 12:20 Urine Urobilinogen 0.2 EU/dL (Up TO 0.2) 10/08/19 12:20 Ur Leukocyte Esterase Negative (Negative) 10/08/19 12:20 Urine RBC >50 HPF (0-2) H 10/08/19 12:20 Urine WBC 10-20 HPF (0-5) H 10/08/19 12:20 Ur Epithelial Cells Negative HPF (Negative) 08/21/20 12:20 Urine Crystals Negative HPF (Negative) 10/08/19 12:20 Urine Bacteria Moderate HPF (Negative) 10/08/19 12:20 Urine Casts 0-2 coarse granular LPF (Negative) 10/08/19 12:20 Urine Mucus Moderate (Negative) 10/08/19 12:20 Urine Other Rare renal (Negative) 10/08/19 12:20 Ur Culture Indicated? Yes 10/08/19 12:20 Urine Glucose Negative mg/dL (Negative) 10/08/19 12:20 COVID-19 PCR Negative (Negative) 10/08/19 19:05 Nasopharyn COVID-19 PCR Not Applicable 10/08/19 19:05 Ref Test Perform Site Michelle [facility] lab 10/08/19 19:05
[2019-10-12] MEDS: Losartan 25 MG TAB PO (07:45)
[2019-10-12] MEDS: Ketorolac 15 MG/ML VIAL IVP ×2 (07:46→19:57)
[2019-10-12] MEDS: Carvedilol 3.125 MG TAB PO ×2 (07:46→16:51)
[2019-10-12] MEDS: Tamsulosin 0.4 MG CAPCR PO ×2 (07:46→19:56)
[2019-10-12 07:51] LABS: BUN 15 mg/dL (7-18); Calcium 8.2 mg/dL (8.5-10.1); Chloride 113 mmol/L (98-107); Glucose 106 mg/dL (74-106); Potassium 4.3 mmol/L (3.5-5.1); Sodium 142 mmol/L (136-145)
--- NOTE | 2019-10-12 10:10 | W.PM.PROGNOT ---
Date of Service Date of service: 10/12/19 Time of Service: 10:10 Assessment and Plan Assessment and plan (1) Diarrhea: Status: Resolved Assessment and plan: His C. difficile screen was negative. Resolved. I am going to discontinue his Questran. Imodium can be used on a prn basis. Qualifiers: Diarrhea type: presumed infectious Qualified Code(s): R19.7 - Diarrhea, unspecified (2) Right nephrolithiasis: Status: Acute Assessment and plan: 5 mm right UVP stone with hydronephrosis of a mild to moderate nature. For cystoureteroscopy this a.m. w/ stent placement (3) Urinary tract infection: Status: Ruled-out Assessment and plan: Urine culture from October 08, 2019 was finalized is showing less than 10,000 colonies of gram-positive edwina. Rocephin was dc'ed yesterday. Qualifiers: Urinary tract infection type: site unspecified Hematuria presence: with hematuria Qualified Code(s): N39.0 - Urinary tract infection, site not specified; R31.9 - Hematuria, unspecified (4) HTN (hypertension): Status: None Assessment and plan: BP still elevated but will wait until after surgery before any further adjustment in his bp meds. Qualifiers: Hypertension type: essential hypertension Qualified Code(s): I10 - Essential (primary) hypertension (5) Parkinson disease: Status: None Assessment and plan: Cont carvidopa-levidopa Controlled. 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 When I spoke to him about this he seemed to have no clue as to having any bone marrow issues. (7) Cirrhosis of liver: Status: Chronic Assessment and plan: Unclear as to the etiology of his cirrhosis. CT scan shows nodular cirrhotic changes along with ascites. Apparently this is a known diagnosis although he seems to have no clue is because and seems to think that this was fixed when he had his esophageal varices treated by his GI specialist Dr. Joe at [facility]. Qualifiers: Hepatic cirrhosis type: unspecified hepatic cirrhosis Ascites presence: with ascites Qualified Code(s): K74.60 - Unspecified cirrhosis of liver; R18.8 - Other ascites (8) Type 2 diabetes mellitus: Status: Chronic Assessment and plan: Not on any home diabetic medications. Glucose levels over the last 24 hours have ranged between 93 to 141. We will continue to monitor his glucose before meals and at bedtime and cover with sliding scale insulin as needed. Last A1c was 6.6% in July Qualifiers: Diabetes mellitus halfway insulin use: without extermination inspector use Diabetes mellitus complication status: without complication Qualified Code(s): E11.9 - Type 2 diabetes mellitus without complications Subjective Subjective Interval history since last seen: No nausea or vomiting. Diarrhea has resolved he is now having soft formed brown bowel movements. He denies any dysuria or gross hematuria. Still has right lower quadrant abdominal pain and some flank pain but it seems to be controlled. Patient is scheduled to go for cystourethroscopy and stent placement to treat his right hydronephrosis and ureterolithiasis. Dr. Garcias is planning on doing this later this morning. Exam Narrative Exam Narrative: elderly male lying in bed. alert and oriented. no distress. He denies any nausea or vomiting. Lungs with diffuse fine cellophane type rales Heart is regular rate and rhythm. Abdomen is distended soft with some mild tenderness in right lower quadrant but no guarding or rebound tenderness normal active bowel sounds. Objective Objective Clinical Data: Abnormal lab results 10/12/19 Range/Units 06:40 Chloride 113 H (98-107) mmol/L Calcium 8.2 L (8.5-10.1) mg/dL Vital Signs Temperature 36.5 C 10/12/19 09:45 Temperature Source Tympanic 10/12/19 09:45 Pulse 69 10/12/19 09:45 Pulse Rhythm Regular 10/12/19 09:06 Pulse 72 10/08/19 19:01 Respiratory Rate 18 10/12/19 09:45 Respiratory Effort Non-Labored 10/12/19 09:06 Respiratory Depth Normal 10/12/19 09:06 Respiratory Pattern Normal 10/12/19 09:06 Blood Pressure 146/72 H 10/12/19 09:45 Blood Pressure Mean 72 10/08/19 19:01 Blood Pressure Position Sitting 10/08/19 10:19 Pulse Oximetry 98 10/12/19 09:45 Oxygen Delivery Method Room Air 10/12/19 09:45 Oxygen Flow Rate 0 10/12/19 09:45 Pain Level 4 10/12/19 09:45 Intake & Output 10/11/19 10/11/19 10/12/19 11:59 23:59 11:59 Intake Total 300 / 1161.605 9501.583 / 1950.583 984.75 / 984.75 Output Total 1300 / 2850 1550 / 2850 950 / 950 Balance -1000 / -899.417 100.583 / -899.417 34.75 / 34.75 Intake: IV 930.583 / 930.583 984.75 / 984.75 Oral 300 / 1020 720 / 1020 Output: Urine 1300 / 2850 1550 / 2850 950 / 950 Other: Urine Color Yellow Yellow Yellow Urine Appearance Clear Clear Clear Urine Odor Normal Normal Normal Strain Urine Result Negative-No Stones/Gravel Negative-No Stones/Gravel Negative-No Stones/Gravel Comment straining for stones, gravel like sediments noted at this time Stool Size Moderate Small Stool Characteristics Soft Soft Formed Formed Brown Brown Voiding Methods Toilet Urinal Urinal Laboratory Results WBC 1.58 10^3/uL (4.4-10.8) L* 10/11/19 07:55 RBC 3.29 10^6/uL (4.36-5.78) L 10/11/19 07:55 Hgb 9.8 g/dL (13.5-17.5) L 10/11/19 07:55 Hct 30.2 % (40.0-50.0) L 10/11/19 07:55 MCV 91.8 fL (80-95) 10/11/19 07:55 MCH 29.8 pg (27.0-33.0) 10/11/19 07:55 MCHC 32.5 % (32.0-36.0) 10/11/19 07:55 RDW 15.4 % (11.8-14.1) H 10/11/19 07:55 Plt Count 31 10^3/uL (130-400) L 10/11/19 07:55 MPV 13.2 fL (8.0-11.0) H 10/11/19 07:55 Immature Gran % 0.6 10/11/19 07:55 Neutrophils % 67.7 10/11/19 07:55 Lymphocytes % 13.3 10/11/19 07:55 Monocytes % 10.8 10/11/19 07:55 Eosinophils % 7.6 10/11/19 07:55 Basophils % 0.0 10/11/19 07:55 Nucleated RBC % 0 % 10/11/19 07:55 Absolute Neutrophils 1.07 10^3/uL (1.2-6.7) L 10/11/19 07:55 Absolute Lymphocytes 0.21 10^3/uL (1.2-3.4) L 10/11/19 07:55 Absolute Monocytes 0.17 10^3/uL (0.1-0.8) 10/11/19 07:55 Absolute Eosinophils 0.12 10^3/uL (0.0-0.7) 10/11/19 07:55 Absolute Basophils 0.00 10^3/uL (0.0-0.2) 10/11/19 07:55 RBC Morphology See below 10/11/19 07:55 Polychromasia Present 10/11/19 07:55 Poikilocytosis 1+ 10/11/19 07:55 Ovalocytes 2+ 10/11/19 07:55 PT 13.3 sec (9.3-11.0) H 10/11/19 07:55 INR 1.3 (0.9-1.1) H 10/11/19 07:55 Sodium 142 mmol/L (136-145) 10/12/19 06:40 Potassium 4.3 mmol/L (3.5-5.1) 10/12/19 06:40 Chloride 113 mmol/L (98-107) H 10/12/19 06:40 Carbon Dioxide 24.0 mmol/L (21.0-32.0) 10/12/19 06:40 Anion Gap 5.0 mmol/L (3-11) 10/12/19 06:40 BUN 15 mg/dL (7-18) 10/12/19 06:40 Creatinine 0.80 mg/dL (0.70-1.30) 10/12/19 06:40 Estimated GFR/1.73 m2 >= 60.00 (mL/min/1.73m2) 10/12/19 06:40 Glucose 106 mg/dL (74-106) 10/12/19 06:40 Calcium 8.2 mg/dL (8.5-10.1) L 10/12/19 06:40 Total Bilirubin 1.1 mg/dL (0.2-1.0) H 10/10/19 08:58 AST 38 U/L (15-37) H 10/10/19 08:58 ALT 6 U/L (16-63) L 10/10/19 08:58 Alkaline Phosphatase 144 U/L (46-116) H 10/10/19 08:58 Ammonia 19 umol/L (11-32) 10/11/19 07:55 Total Protein 6.0 g/dL (6.4-8.2) L 10/10/19 08:58 Albumin 2.7 g/dL (3.4-5.0) L 10/10/19 08:58 Urine Color Dark yellow (Yellow) 10/08/19 12:20 Urine Clarity Cloudy (Clear) 10/08/19 12:20 Urine pH 6.0 (5-8) 10/08/19 12:20 Ur Specific [place] 1.025 (1.005-1.025) 10/08/19 12:20 Urine Protein Trace mg/dL (Negative) H 10/08/19 12:20 Urine Ketones Negative mg/dL (Negative) 10/08/19 12:20 Urine Blood Large (Negative) H 10/08/19 12:20 Urine Nitrite Negative (Negative) 10/08/19 12:20 Urine Bilirubin Negative (Negative) 10/08/19 12:20 Urine Urobilinogen 0.2 EU/dL (Up TO 0.2) 10/08/19 12:20 Ur Leukocyte Esterase Negative (Negative) 10/08/19 12:20 Urine RBC >50 HPF (0-2) H 10/08/19 12:20 Urine WBC 10-20 HPF (0-5) H 10/08/19 12:20 Ur Epithelial Cells Negative HPF (Negative) 10/08/19 12:20 Urine Crystals Negative HPF (Negative) 10/08/19 12:20 Urine Bacteria Moderate HPF (Negative) 10/08/19 12:20 Urine Casts 0-2 coarse granular LPF (Negative) 10/08/19 12:20 Urine Mucus Moderate (Negative) 10/08/19 12:20 Urine Other Rare renal (Negative) 10/08/19 12:20 Ur Culture Indicated? Yes 10/08/19 12:20 Urine Glucose Negative mg/dL (Negative) 10/08/19 12:20 COVID-19 PCR Negative (Negative) 10/08/19 19:05 Nasopharyn COVID-19 PCR Not Applicable 10/08/19 19:05 Ref Test Perform Site [facility] 10/08/19 19:05
[2019-10-12] MEDS: ceFAZolin 1 GM/50 ML BAG IVPB (10:17)
[2019-10-12] MEDS: Lidocaine 2% Jelly 6 ML SYR (10:44)
[2019-10-12] MEDS: Omnipaque 300 MG/ML 50 ML BTL (10:44)
--- NOTE | 2019-10-12 10:49 | W.PM.OP ---
Date of service: 10/12/19 Time of Service: 10:49 Operative Note Operative Note DATE OF PROCEDURE: 10/12/19 PRE-OP DIAGNOSIS: Right ureteral stone POST-OP DIAGNOSIS: same PROCEDURE: Cystoscopy, right retrograde pyelogram, insert right ureteral stent SURGEON: Dov Garcias ANESTHESIA: MAC and local ESTIMATED BLOOD LOSS: 0 PATHOLOGY: none sent COMPLICATIONS: None Patient was transported to: PACU Patient's condition: stable Indications: Right ureteral stone that has not progressed with conservative management Findings: Stone remains just at level of right UPJ Procedure Description: The patient was brought to the operating room on 10/12/2019. He was given a dose of preoperative IV antibiotics. After successful induction of monitored anesthesia care, he was placed in the dorsal lithotomy position. His genitalia was prepped and draped. 2% Xylocaine jelly was instilled into the urethra to act as a local anesthetic. A 22 Gabonese rigid cystoscope was passed through the urethra into the bladder. The urethra and bladder were inspected with a 30 degree lens. The pendulous urethra appeared normal but a slight strictured area was identified in the membranous urethra. This was dilated using the scope. The bulbous and prostatic urethra showed no strictured areas. The bladder neck was entered and the bladder mucosa was inspected. The right ureteral orifice was identified but I was initially unable to cannulate the orifice with a 6 Gabonese access catheter. I passed a guidewire into the orifice and advanced the access catheter over the wire. I then did a retrograde pyelogram by injecting Omnipaque through the access catheter under fluoroscopic guidance. A small filling defect was again seen at the ureteral pelvic junction. This is the previous location of his stone. I passed a guidewire back through the lumen of the access catheter and advanced the wire until the proximal and was seen in the upper pole calyx. I remove the access catheter and passed a 6 Gabonese variable length ureteral stent over the wire. We positioned the end of the stent in the upper pole calyx and the distal end in the bladder. The positioning of the stent was confirmed both fluoroscopically and cystoscopically. Hopefully, the patient will pass the stone with the stent providing ureteral dilation. If he is unable to pass a stone, we would need a second procedure involving ureteroscopy and stone removal.
--- NOTE | 2019-10-12 11:25 | DI.RAD_ITS ---
EXAM: XR RETROGRADE IN OR CLINICAL HISTORY: right ureteral stone TECHNIQUE: COMPARISON: No exams were available for comparison FINDINGS: C-arm fluoroscopy was utilized by Dr. Garcias during retrograde catheterization of the right renal andrei ecting system. Please see Dr. Garcias's procedure note. Fluoro time, 10.5 seconds. IMPRESSION: RADIATION DOSE DELIVERED: Total DLP
--- NOTE | 2019-10-12 12:02 | PDOC.CMPRO ---
- If Service Date Differs Date of service: 10/12/19 Time of Service: 12:02 Care Management Progress Note S/O:Drake is having ureteral stent when CM into visit. There is no change in the plan of care today. He may then be able to discharge home with follow up with Urology out patient. CM will continue to follow. SINDY contacted [facility] to review Drake's equipment needs for his CPAP. Per RT he is not using his CPAP because he cannot get his supplies. SINDY spoke with Maricarmen at [facility], Drake has refused to pay his portion through Medicare which is 20% he does not have additional insurance to cover his portion which is around 30.00 for supplies. SINDY will reach out to Stacie Sifuentes through [employer] to determined if there is any additional resources to assist with cost. Meanwhile [facility] reports they have to change the 20% as Medicare only cover the 80%. A: Drake is a 79 year old male admitted to [facility] on 10/09/19 for nephrolithiasis, hydronephrosis. Stent placement on 10/12/19. P: Anticipate Drake will return home once medically stable with a resumption of [facility] moderate needs. His embedded case manager, Stacie Sifuentes, from [employer] will follow him in the community. He will follow up with his PCP, as recommended. CM will coordinate [facility] transportation for him to return. CM will continue to follow.
[2019-10-12] MEDS: Lactobacillus Acidophilus CAP 1 CAP PO ×2 (13:28→19:56)
[2019-10-12] MEDS: Loperamide 2 MG CAP PO (13:52)
--- NOTE | 2019-10-12 14:55 | RESPIRATORY ---
Spoke with patient this morning concerning his history of HANS and to see if he's able to bring in his machine. Patient stated he needs supplies for it and is no longer currently using it. He said his insurance company will pay only 80% of the cost towards his machine supply needs and he can't afford to pay the other portion. Case management was notified and is looking into what is the deductible the patient is responsible for. RT offered to set patient up on one of the hospital units but patient refused as he's possibly going to D/C tomorrow. He stated, he doesn't want to use the machine for one night and take supplies away from other patients.
[2019-10-12] MEDS: Cholestyramine/Aspartame PKT 1 EACH PO ×2 (16:51→19:57)
[2019-10-12] MEDS: Psyllium PKT 1 EACH PO (19:57)
[2019-10-13 05:58] VITALS: BP 156/79; PULSE 63; RESP 18; TEMP 37; O2SAT 98
[2019-10-13 07:11] VITALS: BP 161/77; PULSE 68; RESP 18; TEMP 36.7; O2SAT 98
[2019-10-13 07:33] LABS: Abs Immature Grans 0.01 10^3/uL (0.0-0.06); HCT 28.2 % (40.0-50.0); HGB 9.5 g/dL (13.5-17.5); MCH 30.1 pg (27.0-33.0); MCHC 33.7 % (32.0-36.0); MCV 89.2 fL (80-95); MPV 12.6 fL (8.0-11.0); Nucleated RBC 0 %; RBC 3.16 10^6/uL (4.36-5.78); RDW 15.7 % (11.8-14.1); RDW-SD 51.1 fL
[2019-10-13 07:41] LABS: Anion Gap 4.9 mmol/L (3-11); BUN 12 mg/dL (7-18); CO2 21.1 mmol/L (21.0-32.0); CREATININE 0.79 mg/dL (0.70-1.30); Calcium 7.9 mg/dL (8.5-10.1); Chloride 115 mmol/L (98-107); Glucose 109 mg/dL (74-106); Potassium 4.3 mmol/L (3.5-5.1); Sodium 141 mmol/L (136-145)
[2019-10-13] MEDS: Losartan 25 MG TAB PO ×2 (07:47→08:21)
[2019-10-13] MEDS: Tamsulosin 0.4 MG CAPCR PO (07:47)
[2019-10-13] MEDS: Carvedilol 3.125 MG TAB PO (07:47)
[2019-10-13] MEDS: Lactobacillus Acidophilus CAP 1 CAP PO (07:47)
[2019-10-13] MEDS: Normal Saline 1,000 ML 65 ML IV (07:48)
--- NOTE | 2019-10-13 08:32 | PGE_ITS ---
Date of Service Date of service: 10/13/19 Time of Service: 08:32 Assessment and Plan Assessment and plan (1) Calculus of proximal right ureter: Status: Acute Assessment and plan: We can use pyridium/antispasmotics for his lower urinary tract symptoms. He can be discharged whenever OK with the hospitalist team. We will ask him to strain his urine to see if his stone passes. I should see him in 1 to 2 weeks. If the stone has not passed by then, we will arrange an out-patient ureteroscopy with stone manipulation. We can probably discontinue his tamsulosin now that the stent is in place. Subjective Subjective Interval history since last seen: He no longer has flank pain but complains of burning/discomfort when voiding. He is tolerating PO. Exam Narrative Exam Narrative: His is sitting up eating breakfast. He does not appear septic or toxic. His vital signs are documented elsewhere in the chart His abdomen is soft with no peritoneal signs He is awake and alert Objective Objective Clinical Data: Abnormal lab results 10/13/19 Range/Units 06:19 Chloride 115 H (98-107) mmol/L Glucose 109 H (74-106) mg/dL Calcium 7.9 L (8.5-10.1) mg/dL Vital Signs Temperature 36.7 C 10/13/19 07:11 Temperature Source Tympanic 10/13/19 07:11 Pulse 68 10/13/19 07:11 Pulse Rhythm Regular 10/12/19 19:30 Pulse 72 10/08/19 19:01 Respiratory Rate 18 10/13/19 07:11 Respiratory Effort Non-Labored 10/12/19 19:30 Respiratory Depth Normal 10/12/19 19:30 Respiratory Pattern Normal 10/12/19 19:30 Blood Pressure 161/77 H 10/13/19 07:11 Blood Pressure Mean 72 10/08/19 19:01 Blood Pressure Position Sitting 10/08/19 10:19 Pulse Oximetry 98 10/13/19 07:11 Respiratory End-tidal CO2 15 10/12/19 11:08 Oxygen Delivery Method Room Air 10/13/19 07:11 Oxygen Flow Rate 0 10/13/19 07:11 Pain Level 4 10/13/19 07:11 Intake & Output 10/12/19 10/12/19 10/13/19 11:59 23:59 11:59 Intake Total 1608.083 / 2488.083 880 / 2488.083 898.083 / 898.083 Output Total 950 / 1600 650 / 1600 250 / 250 Balance 658.083 / 888.083 230 / 888.083 648.083 / 648.083 Intake: IV 1608.083 / 2007.083 400 / 2007.083 898.083 / 898.083 Oral 480 / 480 Output: Urine 950 / 1450 500 / 1450 250 / 250 Stool 150 / 150 Other: Urine Color Yellow Gutiérrez Light Vi Urine Appearance Clear Clear Hematuria Urine Odor Normal Normal None Strain Urine Result Negative-No Stones/Gravel Positive-Gravel Seen Comment minute specks, possibly blood Stool Size Small Moderate Moderate Stool Characteristics Soft Soft Soft Formed Brown Formed Brown Emesis Description None Voiding Methods Urinal Urinal Urinal Laboratory Results WBC 1.58 10^3/uL (4.4-10.8) L* 10/11/19 07:55 RBC 3.29 10^6/uL (4.36-5.78) L 10/11/19 07:55 Hgb 9.8 g/dL (13.5-17.5) L 10/11/19 07:55 Hct 30.2 % (40.0-50.0) L 10/11/19 07:55 MCV 91.8 fL (80-95) 10/11/19 07:55 MCH 29.8 pg (27.0-33.0) 10/11/19 07:55 MCHC 32.5 % (32.0-36.0) 10/11/19 07:55 RDW 15.4 % (11.8-14.1) H 10/11/19 07:55 Plt Count 31 10^3/uL (130-400) L 10/11/19 07:55 MPV 13.2 fL (8.0-11.0) H 10/11/19 07:55 Immature Gran % 0.6 10/11/19 07:55 Neutrophils % 67.7 10/11/19 07:55 Lymphocytes % 13.3 10/11/19 07:55 Monocytes % 10.8 10/11/19 07:55 Eosinophils % 7.6 10/11/19 07:55 Basophils % 0.0 10/11/19 07:55 Nucleated RBC % 0 % 10/11/19 07:55 Absolute Neutrophils 1.07 10^3/uL (1.2-6.7) L 10/11/19 07:55 Absolute Lymphocytes 0.21 10^3/uL (1.2-3.4) L 10/11/19 07:55 Absolute Monocytes 0.17 10^3/uL (0.1-0.8) 10/11/19 07:55 Absolute Eosinophils 0.12 10^3/uL (0.0-0.7) 10/11/19 07:55 Absolute Basophils 0.00 10^3/uL (0.0-0.2) 10/11/19 07:55 RBC Morphology See below 10/11/19 07:55 Polychromasia Present 10/11/19 07:55 Poikilocytosis 1+ 10/11/19 07:55 Ovalocytes 2+ 10/11/19 07:55 PT 13.3 sec (9.3-11.0) H 10/11/19 07:55 INR 1.3 (0.9-1.1) H 10/11/19 07:55 Sodium 141 mmol/L (136-145) 10/13/19 06:19 Potassium 4.3 mmol/L (3.5-5.1) 10/13/19 06:19 Chloride 115 mmol/L (98-107) H 10/13/19 06:19 Carbon Dioxide 21.1 mmol/L (21.0-32.0) 10/13/19 06:19 Anion Gap 4.9 mmol/L (3-11) 10/13/19 06:19 BUN 12 mg/dL (7-18) 10/13/19 06:19 Creatinine 0.79 mg/dL (0.70-1.30) 10/13/19 06:19 Estimated GFR/1.73 m2 >= 60.00 (mL/min/1.73m2) 10/13/19 06:19 Glucose 109 mg/dL (74-106) H 10/13/19 06:19 Calcium 7.9 mg/dL (8.5-10.1) L 10/13/19 06:19 Total Bilirubin 1.1 mg/dL (0.2-1.0) H 10/10/19 08:58 AST 38 U/L (15-37) H 10/10/19 08:58 ALT 6 U/L (16-63) L 10/10/19 08:58 Alkaline Phosphatase 144 U/L (46-116) H 10/10/19 08:58 Ammonia 19 umol/L (11-32) 10/11/19 07:55 Total Protein 6.0 g/dL (6.4-8.2) L 10/10/19 08:58 Albumin 2.7 g/dL (3.4-5.0) L 10/10/19 08:58 Urine Color Dark yellow (Yellow) 10/08/19 12:20 Urine Clarity Cloudy (Clear) 10/08/19 12:20 Urine pH 6.0 (5-8) 10/08/19 12:20 Ur Specific [place] 1.025 (1.005-1.025) 10/08/19 12:20 Urine Protein Trace mg/dL (Negative) H 10/08/19 12:20 Urine Ketones Negative mg/dL (Negative) 10/08/19 12:20 Urine Blood Large (Negative) H 10/08/19 12:20 Urine Nitrite Negative (Negative) 10/08/19 12:20 Urine Bilirubin Negative (Negative) 10/08/19 12:20 Urine Urobilinogen 0.2 EU/dL (Up TO 0.2) 10/08/19 12:20 Ur Leukocyte Esterase Negative (Negative) 10/08/19 12:20 Urine RBC >50 HPF (0-2) H 10/08/19 12:20 Urine WBC 10-20 HPF (0-5) H 10/08/19 12:20 Ur Epithelial Cells Negative HPF (Negative) 10/08/19 12:20 Urine Crystals Negative HPF (Negative) 10/08/19 12:20 Urine Bacteria Moderate HPF (Negative) 10/08/19 12:20 Urine Casts 0-2 coarse granular LPF (Negative) 10/08/19 12:20 Urine Mucus Moderate (Negative) 10/08/19 12:20 Urine Other Rare renal (Negative) 10/08/19 12:20 Ur Culture Indicated? Yes 10/08/19 12:20 Urine Glucose Negative mg/dL (Negative) 10/08/19 12:20 COVID-19 PCR Negative (Negative) 10/08/19 19:05 Nasopharyn COVID-19 PCR Not Applicable 10/08/19 19:05 Ref Test [facility] 10/08/19 19:05
[2019-10-13 08:35] LABS: WBC 1.56 10^3/uL (4.4-10.8)
[2019-10-13 08:36] LABS: Absolute Monocyte Count 0.12 10^3/uL (0.1-0.8)
[2019-10-13 08:37] LABS: Absolute Eosinophil Count 0.06 10^3/uL (0.0-0.7); Diff Comment Manual Differential
[2019-10-13 08:38] LABS: Absolute Lymphocyte Count 0.22 10^3/uL (1.2-3.4); Absolute Neutrophil Count 1.15 10^3/uL (1.2-6.7)
[2019-10-13 08:39] LABS: RBC Morphology Normal
[2019-10-13 08:43] LABS: Platelet Count 31 10^3/uL (130-400)
[2019-10-13] MEDS: Psyllium PKT 1 EACH PO (10:52)
[2019-10-13] MEDS: Cholestyramine/Aspartame PKT 1 EACH PO (10:52)
--- NOTE | 2019-10-13 11:26 | DSE_ITS ---
Date of service: 10/13/19 Time of Service: 11:29 DS: Diagnosis Discharge Diagnosis (1) Calculus of proximal right ureter: Status: Acute Asessment and Plan: Patient was given a chance to try to pass a stone on his own with IV fluids and antiemetics and analgesics along with Flomax. However the patient was unable to pass a stone on his own and he underwent cystoscopy ureteroscopy with stent placement for right ureteropelvic junction 5 mm stone. This is performed on October 12, [address] Dov Garcias. Patient tolerated procedure well was monitored overnight. Patient had no perioperative complications. Patient was voiding on his own without the use of a Robledo. Patient is instructed to follow-up with Dr. Garcias in 1 week. Discharge Plan Disposition Patient Disposition: HOME Condition: Good Discharge Details Chief Complaint: Abd Prob Clinical Impression: Calculus of proximal right ureter Reason For Visit: NEPHROLITHIASIS Admit Date/Time: 10/09/19 18:30 Admit Provider: Noé Barrett Attending Provider: Noé Barrett Primary Care Provider: Joanne Riggins ED Provider: Katy Hallman [facility] Course Hospital Course: 79-year-old male with past medical history significant for Parkinson disease, type 2 diabetes mellitus (not currently on treatment with last A1c of 6.6%), MGUS with pancytopenia, essential pretension, hyperlipidemia, remote colon cancer, cirrhosis, restless leg syndrome who presented the emergency depar tme with acute right-sided abdominal pain sharp severe rated 1010 stabbing pain started about an hour before presentation. There was no associated chest pain shortness of breath fever chills, rigors, vomiting although he had nausea. Evaluation emergency department clued CT of the abdomen and pelvis that showed a mild to moderate right hydronephrosis with 5 mm stone at the ureteropelvic junction. Patient was admitted to [facility] for IV fluids and analgesics and urology consultation. At the time of admission there was no urology available at our facility and the ED physician spoke with 3 other facilities all of which stated that no acute intervention was required at this time as it was felt that he would probably pass a stone on his own. Patient was offered referral to the [facility] but refused transfer due to concerns of COVID-19 currently [facility]. Patient was admitted by my colleague Dr. Noé Barrett who gave him IV fluids and put him on Rocephin for presumptive urinary infection. However his subsequent urine culture came back growing less than 10,000 colonies of gram-positive edwina and his antibiotics were discontinued. His hospital course was complicated by diarrhea which was presumed to be infectious in origin but C. difficile antigen toxin came back negative and the empiric Flagyl that he was placed on was discontinued. Dr. Dov Garcias, urologist was consulted upon his return on October 10. Because the patient had not passed the right ureteral stone despite IV fluids analgesics and use of Flomax Dr. Garcias schedule him for cystoscopy with right retrograde pyelogram and right ureteral stent placement. This was accomplished on October 12, 2019. Stone remained at the level of the right ureteropelvic junction. During the procedure his urethra was noted to be slightly strictured in the membranous urethra was dilated using the scope. The bulbous and prostatic urethra showed no strictures. See Dr. Garcias's surgical procedure note for details. Stent was successfully placed in the upper pole calyx and the distal end in the bladder. Patient did well overnight and had no fevers had no nausea or vomiting and his abdominal pain had resolved after stent placement. Patient was voiding on his own and did not require Robledo catheter. Patient's instructed follow-up with Dr. Garcias in 1 week. During his hospital course we monitor his blood sugars and cover him with sliding scale insulin on a as needed basis but for the most part his blood sugars remain very well controlled and he is not discharged home on any oral agents at this time. He should follow-up with his primary care provider regarding his diabetes mellitus. With respect to his blood pressure he was kept on his carvedilol 3.125 mg twice a day however because of persistently elevated blood pressures running in the 150s to 160 systolic patient was started on losartan 25 mg daily which was titrated up to 50 mg daily at the time of discharge. Patient will be discharged home on a prescription for losartan 50 mg daily along with tamsulosin 0.4 mg p.o. twice daily and acidophilus 1 capsule p.o. 3 times daily for 1 week. With respect to his infectious work-up as noted above his initial urinalysis was suspicious for UTI and he was treated with Rocephin 1 g IV daily for the first couple days but when the urine culture came back less than 10,000 colonies of gram-positive edwina his Rocephin was discontinued. When the patient had some diarrhea issues passing several watery stools per day suspicion was raised for C. difficile colitis and the patient was empirically placed on vancomycin. (Note I originally indicated he was placed on Flagyl but he never received Flagyl out of concern for his chronic liver disease.). Vancomycin was d iscontinued when his C. difficile screen came back negative. Diarrhea was treated with Metamucil and Questran which improved his bowel movements greatly to the point where he is having formed stools. At this point is not felt that he needs Questran but he should stay on a probiotic for the next week. Home Meds and New Rx's Prescriptions: New losartan 50 mg Tablet 50 mg PO DAILY Qty: 30 RF: 0 tamsulosin 0.4 mg Capsule 0.4 mg PO BID Qty: 60 RF: 0 acidophilus-pectin, citrus 25 million cell -100 mg Tablet 1 cap PO TID Qty: 21 RF: 0 Continued tramadol 50 mg tablet 25 mg PO DAILY RF: 0 carbidopa-levodopa 25-100 mg tablet extended release 2 tab PO QID Qty: 240 RF: 11 melatonin 5 mg tablet 10 mg PO HS PRNRF: 0 carvedilol 3.125 MG tablet 3.125 mg PO BID RF: 0 ondansetron HCl [Zofran] 4 mg tablet 4 mg PO Q8H PRN (Reason: nausea and vomiting) Qty: 10 RF: 0 Discharge Instructions Referrals: Dov Garcias MD [ [facility] STAFF PHYSICIAN] - (Follow-up with Dr. Garcias within the next week. Nursing staff will give you a date and time upon discharge from the hospital otherwise you will hear from Dr. Garcias's office.) Joanne Riggins [Primary Care Provider] - (Call the office to be seen within the next 2 weeks) Activity:: Activity as Tolerated Equipment/Supplies:: No Equipment Needed Diet:: Low Sodium Discharge Orders Discharge Orders: Discharge Order (Routine); Ordered 10/13/19 Ordered By: El Meyers DS: Summary Status at Discharge Functional status at discharge: independent ambulation Overall status at discharge: patient is back to baseline Mental Status: mental status grossly normal Speech and Movement: speech and movement normal Mood: congruent mood Affect: normal affect Time Spent with Patient providing and/or coordinating discharge services: Greater than 30 minutes Exam Narrative Exam Narrative: Elderly male sitting up in his chair after having eaten his breakfast. He is alert and oriented person place time circumstance. Lungs are clear to auscultation. Heart is regular rate and rhythm with a soft systolic murmur. Abdomen is soft and nontender nondistended normal active bowel sounds no palpable masses no guarding no rebound tenderness. He with deep palpation right lower quadrant I could not elicit any pain. Psych Mental Status: mental status grossly normal Speech and Movement: speech and movement normal Mood: congruent mood Affect: normal affect DS: Data Vitals/I&O Vitals and I&O: Vital Signs Temperature 36.7 C 10/13/19 07:11 Temperature Source Tympanic 10/13/19 07:11 Pulse 68 10/13/19 07:11 Pulse Rhythm Regular 10/12/19 19:30 Pulse 72 10/08/19 19:01 Respiratory Rate 18 10/13/19 07:11 Respiratory Effort Non-Labored 10/12/19 19:30 Respiratory Depth Normal 10/12/19 19:30 Respiratory Pattern Normal 10/12/19 19:30 Blood Pressure 161/77 H 10/13/19 07:11 Blood Pressure Mean 72 10/08/19 19:01 Blood Pressure Position Sitting 10/08/19 10:19 Pulse Oximetry 98 10/13/19 07:11 Respiratory End-tidal CO2 15 10/12/19 11:08 Oxygen Delivery Method Room Air 10/13/19 07:11 Oxygen Flow Rate 0 10/13/19 07:11 Pain Level 4 10/13/19 07:11 Intake & Output 10/12/19 10/12/19 10/13/19 11:59 23:59 11:59 Intake Total 1608.083 / 2488.083 880 / 2488.083 1438.083 / 1438.083 Output Total 950 / 1600 650 / 1600 450 / 450 Balance 658.083 / 888.083 230 / 888.083 988.083 / 988.083 Intake: IV 1608.083 / 2007.083 400 / 2008.083 898.083 / 898.083 Oral 480 / 480 540 / 540 Output: Urine 950 / 1450 500 / 1450 250 / 250 Stool 150 / 150 200 / 200 Other: Urine Color Yellow Gutiérrez Light Vi Urine Appearance Clear Clear Hematuria Urine Odor Normal Normal None Strain Urine Result Negative-No Stones/Gravel Negative-No Stones/Gravel Comment minute specks, possibly blood Stool Occult Blood Negative Stool Size Small Moderate Small Stool Characteristics Soft Soft Liquid Formed Brown Brown Emesis Description None Voiding Methods Urinal Urinal Urinal Data Completed and Pending Labs on day of discharge: Labs from last 24 hours 10/13/19 10/13/19 06:19 06:19 WBC 1.56 L* RBC 3.16 L Hgb 9.5 L Hct 28.2 L MCV 89.2 MCH 30.1 MCHC 33.7 RDW 15.7 H Plt Count 31 L MPV 12.6 H Immature Gran % 0.0 Neutrophils % 74.0 Lymphocytes % 14.0 Monocytes % 8.0 Eosinophils % 4.0 Basophils % 0.0 Nucleated RBC % 0 Absolute Neutrophils 1.15 L Absolute Lymphocytes 0.22 L Absolute Monocytes 0.12 Absolute Eosinophils 0.06 Absolute Basophils 0.00 RBC Morphology Normal Sodium 141 Potassium 4.3 Chloride 115 H Carbon Dioxide 21.1 Anion Gap 4.9 BUN 12 Creatinine 0.79 Estimated GFR/1.73 m2 >= 60.00 Glucose 109 H Calcium 7.9 L [facility] Medical History Anxiety (Chronic) Cirrhosis of liver (Chronic) On beta blockers; Under care of Dr. Joe. Colon cancer (Chronic) Multiple polypectomies. 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 Liver cirrhosis MGUS (monoclonal gammopathy of unknown significance) (Chronic) Mild cognitive impairment (Acute 08/17/15) HANS (obstructive sleep apnea) Pancytopenia (Chronic) Thought to be secondary to liver cirrhosis and splenic sequestratioin. Please note bone marrow biopsy was negative. Parkinson disease Perirectal abscess (Resolved) Prostate cancer (Chronic 05/24/02) S/P radiation, Lupron, now on Zoladex. Restless leg syndrome (Acute 10/24/16) Streptococcal bacteremia (Resolved) s/p removal of buried central venous access device. no bleeding. no pain. cont care. Tubulovillous adenoma of colon (Resolved 11/21/15) Ventral hernia (Chronic) Visual hallucination (Inactive) Surgical History BONE MARROW BIOPSY (11/25/14) LISSET Colectomy 1992 colonoscopy (11/21/15) H/O ventral hernia repair (Chronic) History of bowel resection (Chronic) History of Leonid fundoplication (Chronic) S/P cholecystectomy (Acute) S/P ear surgery (Acute) Family History Maternal Cousin Colon cancer Maternal Cousin Colon cancer Mother Cervical cancer Social History Smoking/Tobacco Use Status: Former Tobacco Use Quit Date: 06/17/94 Pack-years: 37 Second Hand Exposure: No Alcohol Intake: former Drug use: Never Substance use type: does not use Household members: none Housing: apartment current occupation: Retired Seatbelt use: always Do you feel safe at home: Yes Do you feel safe in your relationship?: Yes Additional Social history:
[2019-10-13] MEDS: Loperamide 2 MG CAP PO (11:39)
[2019-10-13] MEDS: Insulin Aspart 300 UNITS/3 ML PEN SC (11:39)
--- NOTE | 2019-10-13 14:39 | CMDISCH_ITS ---
- If Service Date Differs Date of service: 10/13/19 Time of Service: 14:40 LACE Index Scoring Tool - Questions: Length of Stay (in days): 4 - 6 Acuity (Admit via E.D.?): Yes Comorbidities: Diabetes w/o Complication, Any Tumor, Liver or Renal Disease E.D. Visits: 3 - Answers: Total Score: 15 Risk of Readmission: High Risk Care Management Discharge Reason for Hospitalization: Nephrolithiasis Discharge Plan: Drake will return home with a resumption of [facility] moderate needs. CM called [facility] to inform them of his discharge, and also to express concern that he reported regarding the schedule for his mod needs. Drake has his prescriptions delivered to him, CM called [facility] who confirmed that they will be delivered tomorrow. Drake stated that per provider he would receive enough medication to get him through to tomorrow. Drake called post discharge after he realized that he did not receive them. CM coordinated his prescriptions to be brought to him this afternoon. CM coordinated a ride home for Drake through [employer] w/c [employer]. He will follow up with his PCP and discharge plan of care. Patient/Family Education Needs: Review discharge instructions regarding activity levels and medications, discussion of self care needs including ask me three and goals of care. Services Needed at Discharge: Homemaking Services ([facility] moderate needs), Transportation ([facility] w/c van)
[2019-10-18 15:08] LABS: Misc Referral (VDH) See Comments
== END 2019-10-13 14:26 | disposition home or self-care (01) | DRG 660 ==
LOC: ER 18:22 → MS 22:47
PROVIDERS: Internal Medicine; Physician Assistant; Urology; Admitting Provider Family Medicine; Emergency Provider Physician Assistant; PCP Nurse Practitioner Family; Visit Provider Family Medicine
PROC: 0T768DZ Dilation of Right Ureter with Intraluminal Device, Via Natural or Artificial Opening Endoscopic (ICD-10-PCS; CPT 52332; principal; 2019-10-12 12:00)
DX: N13.2 Hydronephrosis with renal and ureteral calculous obstruction; I85.00 Esophageal varices without bleeding; D61.818 Other pancytopenia; R18.8 Other ascites; A09 Infectious gastroenteritis and colitis, unspecified; R31.9 Hematuria, unspecified; F41.9 Anxiety disorder, unspecified; E11.9 Type 2 diabetes mellitus without complications; Z85.038 Personal history of other malignant neoplasm of large intestine; K74.60 Unspecified cirrhosis of liver; K21.9 Gastro-esophageal reflux disease without esophagitis; H91.90 Unspecified hearing loss, unspecified ear; I10 Essential (primary) hypertension; E78.5 Hyperlipidemia, unspecified; D50.9 Iron deficiency anemia, unspecified; K58.9 Irritable bowel syndrome, unspecified; D47.2 Monoclonal gammopathy; G31.84 Mild cognitive impairment of uncertain or unknown etiology; G47.33 Obstructive sleep apnea (adult) (pediatric); G20 Parkinson's disease; C61 Malignant neoplasm of prostate; G25.81 Restless legs syndrome
CPT/HCPCS: 52332; 36415; 36416; 80048; 80053; 82962; 87505; 96361; 96365; 96375; 96376; 99222; 99231; 99232; 99233; 99239; 99253; 99285; U0003; 74177; 74420; 81003; 81015; 82140; 83630; 85025; 85610; 87086; 87324; G0378; J0690; J0696; J1885; J2405; J2704; J3490; Q9967

== ENCOUNTER → 2019-10-12 11:27 | Outpatient (BNVA) | payer OTHER, SELFPAY | PROVIDERS: PCP Nurse Practitioner Family; Referring Provider Nurse Practitioner Family; Visit Provider Urology | DX: R69 Illness, unspecified (principal) ==

== ENCOUNTER 2019-10-16 20:22 | Emergency (ER) | payer OTHER, SELFPAY ==
[2019-10-16 20:24] VITALS: BP 167/60; PULSE 70; RESP 18; TEMP 37.1; O2SAT 99
--- NOTE | 2019-10-16 20:45 | DI.RAD_ITS ---
EXAM: 2D digital imaging was performed. CLINICAL HISTORY: chest ureteral stent placement. COMPARISON: CT CT ABDOMEN PELVIS W from 10/08/2019 TECHNIQUE: Supine views of the abdomen performed. FINDINGS: There has been interval placement of a right nephroureteral stent which appears in good position. Th e proximal and distal pigtails are in good position projecting over the expected locations of the rig ht renal collecting system and the urinary bladder. The bowel gas pattern is nonobstructive. Visual ized lung bases are clear degenerative changes are seen in the spine. Surgical clips are seen in the right upper quadrant consistent with prior cholecystectomy. Calcifications are projected over the l ower pole of the right renal shadow and the lower pole of the left renal shadow which may represent n onobstructing stones. Surgical clips are projected over the pelvis. Vascular calcifications are pre sent. IMPRESSION: 1. Nonobstructive bowel gas pattern. 2. Interval placement of a right nephroureteral stent which appears in good position. DATA REPOSITORY: RADIATION DOSE DELIVERED:
--- NOTE | 2019-10-16 20:52 | ED.GENADUL_ITS ---
Discharge Plan Disposition Patient Disposition: HOME Condition: Good Discharge Details Chief Complaint: FlankPain Clinical Impression: Hematuria Primary Care Provider: Joanne Riggins ED Provider: Dom Reeves Veblen Meds and New Rx's Prescriptions: New levofloxacin 750 mg tablet 750 mg PO HS Qty: 5 RF: 0 Continued tramadol 50 mg tablet 25 mg PO DAILY RF: 0 carbidopa-levodopa 25-100 mg tablet extended release 2 tab PO QID Qty: 240 RF: 11 melatonin 5 mg tablet 10 mg PO HS PRNRF: 0 carvedilol 3.125 MG tablet 3.125 mg PO BID RF: 0 ondansetron HCl [Zofran] 4 mg tablet 4 mg PO Q8H PRN (Reason: nausea and vomiting) Qty: 10 RF: 0 losartan 50 mg Tablet 50 mg PO DAILY Qty: 30 RF: 0 tamsulosin 0.4 mg Capsule 0.4 mg PO BID Qty: 60 RF: 0 acidophilus-pectin, citrus 25 million cell -100 mg Tablet 1 cap PO TID Qty: 21 RF: 0 Discharge Instructions Additional Instructions: Your x-ray looks fine, stent is where it should be. Laboratory studies remain unchanged. You continue to have low blood counts. The urine does not necessarily look infected but because of the gross blood it is difficult to determine whether white cells or bacteria are present. Given your low white cell count we will cover you with antibiotics for the weekend anyway. Please contact Dr. Garcias Friday morning to discuss further management. Urine culture should be back on Friday. You should return to ED if you develop fever, inability to urinate, start passing clots, uncontrolled abdominal or back pain. Referrals: Dov Garcias MD [ [facility] STAFF PHYSICIAN] - Discharge Data Discharge Date/Time-TO BE ENTERED AT DEPARTURE: 10/16/19 23:20 Medical Decision Making Patient with known kidney stone status post stent placement few days ago. Now with grossly bloody urine without clots. No fever. No change in pain. He is not on blood thinners. He is passing urine without difficulty. He looks well. Will get KUB to check stent placement. CBC and chemistry for blood count and kidney function. Urine for micro and culture. Will attempt to speak with Dr. Garcias if available. X-ray shows stent to be in good position. CBC continues to show pancytopenia. Currently his ANC is 860. Kidney function remains normal. Urine is grossly bloody but negative for nitrite and leukocyte esterase. Unable to visualize anything other than blood on micro. Culture pending. Suspect gross hematuria related to recent instrumentation, stent, thrombocytopenia. Patient is not febrile and otherwise feels well. However, given his ANC and recent instrumentation with stenting I think it is reasonable for Levaquin over the weekend until culture is back on Friday. Patient will contact Dr. Garcias on Friday for further management. I was unable to connect with Dr. Dieter paniagua. Patient instructed to return if he spikes any fever, has inability urinate, starts passing large clots, has worsening pain. Medical Records Medical records reviewed: Yes I reviewed the patient's medical records. Lab Data Lab results reviewed: Yes I reviewed the patient's lab results. HPI General Mode of arrival: EMS . Date/Time Provider Initiated Documentation: 10/16/19 20:51 . Limitations to Documentation: no limitations . Information obtained by: patient, RN notes reviewed and old records reviewed . HPI Narrative: Patient presents to ED with complaint of gross hematuria. Patient was seen and admitted on the with a right ureteral stone. It did not pass and a few days later he was taken to the OR with Dr. Garcias placed a stent. He went home the following day on the . He has had intermittent episodes of pain but otherwise has been doing well. He had noticed some pink tinge to his urine but today has had gross hematuria without clots. He denies fever. He denies nausea or vomiting. He is not having any difficulty urinating. He is still making plenty of urine. Pain has been intermittent and unchanged since stent placement and discharge. Related Data Home Medications Medication Instructions Recorded Confirmed carvedilol 3.125 mg PO BID 05/30/13 10/08/19 tramadol 50 mg tablet 25 mg PO DAILY tab 01/26/19 10/08/19 ondansetron HCl [Zofran] 4 mg PO Q8H PRN #10 tab 03/05/19 10/08/19 carbidopa ER 25 mg-levodopa 100 mg 2 tab PO QID #240 tab 07/27/19 10/08/19 tablet,extended release melatonin 5 mg tablet 10 mg PO HS PRN 07/27/19 10/08/19 acidophilus-pectin, citrus 1 cap PO TID #21 tab 10/13/19 losartan 50 mg PO DAILY #30 tab 10/13/19 tamsulosin 0.4 mg PO BID #60 cap 10/13/19 levofloxacin 750 mg PO HS #5 tab 10/16/19 Previous Rx's Medication Instructions Recorded ondansetron HCl [Zofran] 4 mg PO Q8H PRN #10 tab 03/05/19 carbidopa ER 25 mg-levodopa 100 mg 2 tab PO QID #240 tab 07/27/19 tablet,extended release acidophilus-pectin, citrus 1 cap PO TID #21 tab 10/13/19 losartan 50 mg PO DAILY #30 tab 10/13/19 tamsulosin 0.4 mg PO BID #60 cap 10/13/19 levofloxacin 750 mg PO HS #5 tab 10/16/19 Allergies Allergy/AdvReac Type Severity Reaction Status Date / Time leuprolide acetate Allergy Severe Swelling/Ed Verified 10/08/19 10:22 [From Lupron] isabelle adhesive Allergy Intermediate Skin Rash Verified 10/08/19 10:22 enalapril [Enalapril] AdvReac Severe Hyperkalemi Verified 10/08/19 10:22 a aspirin AdvReac Intermediate Verified 10/08/19 10:22 esomeprazole magnesium AdvReac Intermediate Diarrhea Verified 10/08/19 10:22 [From Nexium] metformin AdvReac Intermediate Diarrhea Verified 10/08/19 10:22 acetaminophen AdvReac Mild Diarrhea Verified 10/08/19 10:22 General Stated Complaint: FlankPain SHEKHAR: 3 Review of Systems Narrative: As documented in HPI otherwise negative as below. Const: no fever, chills, weakness Resp: no cough, SOB, pleuritic pain CV: no CP, diaphoresis, edema, syncope GI: no nausea, vomiting, diarrhea Neuro: no headache, numbness, focal weakness, confusion PFSH Medical History Anxiety (Chronic) Cirrhosis of liver (Chronic) On beta blockers; Under care of Dr. Joe. Colon cancer (Chronic) Multiple polypectomies. 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 Liver cirrhosis MGUS (monoclonal gammopathy of unknown significance) (Chronic) Mild cognitive impairment (Acute 08/17/15) HANS (obstructive sleep apnea) Pancytopenia (Chronic) Thought to be secondary to liver cirrhosis and splenic sequestratioin. Please note bone marrow biopsy was negative. Parkinson disease Perirectal abscess (Resolved) Prostate cancer (Chronic 05/24/02) S/P radiation, Lupron, now on Zoladex. Restless leg syndrome (Acute 10/24/16) Streptococcal bacteremia (Resolved) s/p removal of buried central venous access device. no bleeding. no pain. cont care. Tubulovillous adenoma of colon (Resolved 11/21/15) Ventral hernia (Chronic) Visual hallucination (Inactive) Surgical History BONE MARROW BIOPSY (11/25/14) LISSET Colectomy 1992 colonoscopy (11/21/15) H/O ventral hernia repair (Chronic) History of bowel resection (Chronic) History of Leonid fundoplication (Chronic) S/P cholecystectomy (Acute) S/P ear surgery (Acute) Family History Maternal Cousin Colon cancer Maternal Cousin Colon cancer Mother Cervical cancer Social History Smoking/Tobacco Use Status: Former Tobacco Use Quit Date: 06/17/94 Pack-years: 35 Second Hand Exposure: No Drug use: Never Substance use type: does not use Household members: none Housing: apartment current occupation: Retired Seatbelt use: always Do you feel safe at home: Yes Do you feel safe in your relationship?: Yes Additional Social history: Exam Narrative Exam Narrative: Vitals: Afebrile. Elevated blood pressure otherwise normal vitals and normal room air saturation. Const: Obese elderly male in NAD. HEENT: NC/AT. Normal facial exam. Eyes: Normal conjunctiva and sclera. Neck: Supple. Trachea midline. Lungs: Normal respiratory effort. Cor: Good radial pulses. GI: Soft. NT/ND. No guarding or rebound. : Normal male genitalia. Bloody urine present in diaper. Back: Mild R CVAT Neuro: A+O x 3. Normal speech, mentation. Cranial nerves II - XII grossly intact. No gross motor or sensory deficit. Ext: No C/C/E. Course Vital Signs Vital signs: Vital Signs Temperature 98.8 F 10/16/19 20:24 Pulse 70 10/16/19 20:24 Respiratory Rate 18 10/16/19 20:24 Blood Pressure 167/60 H 10/16/19 20:24 Pulse Oximetry 99 10/16/19 20:24 Temperature 98.8 F 10/16/19 20:24 Temperature Source Temporal Artery Scan 10/16/19 20:24 Pulse 70 10/16/19 20:24 Respiratory Rate 18 10/16/19 20:24 Respiratory Effort Non-Labored 10/16/19 20:31 Blood Pressure 167/60 H 10/16/19 20:24 Blood Pressure Position Supine 10/16/19 20:24 Pulse Oximetry 99 10/16/19 20:24 Oxygen Delivery Method Room Air 10/16/19 20:24 Oxygen Flow Rate 0 10/16/19 20:24 Pain Level 6 10/16/19 20:24
[2019-10-16] MEDS: Normal Saline 1,000 ML 250 ML IV (21:12)
[2019-10-16 21:33] LABS: Abs Immature Grans 0.01 10^3/uL (0.0-0.06); Absolute Basophil Count 0.01 10^3/uL (0.0-0.2); Absolute Eosinophil Count 0.09 10^3/uL (0.0-0.7); Absolute Lymphocyte Count 0.26 10^3/uL (1.2-3.4); Absolute Monocyte Count 0.18 10^3/uL (0.1-0.8); Absolute Neutrophil Count 0.86 10^3/uL (1.2-6.7); Basophils % 0.7; Eosinophils % 6.4; HCT 27.6 % (40.0-50.0); HGB 9.1 g/dL (13.5-17.5); Immature Grans % 0.7; Lymphocytes % 18.4; MCH 30.1 pg (27.0-33.0); MCV 91.4 fL (80-95); MPV 11.5 fL (8.0-11.0); Monocytes % 12.8; Nucleated RBC 0 %; RBC 3.02 10^6/uL (4.36-5.78); RDW 16.1 % (11.8-14.1); RDW-SD 53.4 fL
[2019-10-16 21:36] LABS: WBC 1.41 10^3/uL (4.4-10.8)
[2019-10-16 21:37] LABS: Platelet Count 31 10^3/uL (130-400)
[2019-10-16 21:39] LABS: Anion Gap 7.4 mmol/L (3-11); BUN 9 mg/dL (7-18); CO2 25.6 mmol/L (21.0-32.0); CREATININE 0.88 mg/dL (0.70-1.30); Calcium 7.7 mg/dL (8.5-10.1); Chloride 108 mmol/L (98-107); Glucose 193 mg/dL (74-106); Potassium 3.5 mmol/L (3.5-5.1); Sodium 141 mmol/L (136-145)
--- NOTE | 2019-10-16 21:49 | DI.VRAD_ITS ---
PROCEDURE INFORMATION: Exam: XR Abdomen, 1 View Exam date and time: 10/16/2019 9:25 PM Age: 79 years old Clinical indication: Screening exam; Post surgical status; Prior surgery; Patient HX: Check ureteral stent placement TECHNIQUE: Imaging protocol: XR of the abdomen. Views: Frontal supine view of the abdomen. 1 View. COMPARISON: CT ABDOMEN PELVIS W 10/08/2019 12:07 PM FINDINGS: Gastrointestinal tract: Nonobstructive bowel gas pattern. No focal dilation or transition to suggest obstruction. Intraperitoneal space: Redemonstrated surgical clips projecting over the inferior pelvis. No free air. Organs: Ureteral stent is in place with proximal pigtail projecting over the superior pole collecting system of the right kidney and distal pigtail projecting over the inferior pelvis, in the expected location of the bladder. Cholecystectomy clips are in place. Vasculature: Scattered vascular calcifications of the abdominal aorta and its major branches. Bones/joints: Moderate symmetric degenerative changes of the hips. No acute osseous finding. Soft tissues: No focal abnormality. IMPRESSION: Interval placement of right ureteral stent with proximal pigtail projecting over superior right renal collecting system and distal pigtail projecting over inferior pelvis in the expected location of the bladder. Dictated and Authenticated by: Nikita Olivarez MD. Ordering:INDU Fernandes MD
[2019-10-16 22:05] LABS: Clarity Cloudy (Clear)
[2019-10-16 22:10] LABS: Specific Gravity > 1.030 (1.005-1.025)
[2019-10-16 22:11] LABS: Glucose 100 mg/dL (Negative); Ketones Trace mg/dL (Negative); Leukocyte Esterase Negative (Negative); Nitrite Negative (Negative)
[2019-10-16 22:12] LABS: Bilirubin Small (Negative); Blood Large (Negative); Urobilinogen 0.2 EU/dL (Up TO 0.2)
[2019-10-16 22:13] LABS: RBC >50 HPF (0-2)
[2019-10-16 22:14] LABS: C & S Indicated? Yes
[2019-10-16 22:21] LABS: Diff Comment PLT Morph Reviewed; RBC Morphology Normal
[2019-10-16] MEDS: levoFLOXacin 500 MG, levoFLOXacin 250 MG 750 MG PO ×2 (22:55→22:56)
[2019-10-16 23:00] VITALS: BP 166/70; PULSE 84; RESP 16; TEMP 37; O2SAT 96
--- NOTE | 2019-10-17 04:18 | NUR.NOTE ---
Nursing Note: Levofloxacin prescription called in with original faxed to [facility] per patient request as he is unable to get to drug store. He gets his prescriptions delivered to him at home. Original script placed in patient chart.
== END 2019-10-16 23:20 | disposition home or self-care (01) ==
PROVIDERS: Emergency Provider Emergency Medicine; PCP Nurse Practitioner Family
DX: R31.0 Gross hematuria (principal); N13.2 Hydronephrosis with renal and ureteral calculous obstruction; D61.818 Other pancytopenia; Y83.1 Surgical operation with implant of artificial internal device as the cause of abnormal reaction of the patient, or of later complication, without mention of misadventure at the time of the procedure; Z96.0 Presence of urogenital implants; Z87.442 Personal history of urinary calculi; E11.9 Type 2 diabetes mellitus without complications; I10 Essential (primary) hypertension
CPT/HCPCS: 36415; 80048; 96360; 96361; 99285; 74018; 81003; 81015; 85025; 87086; 99284

== ENCOUNTER → 2019-10-22 09:21 | Outpatient (BNVA) | payer OTHER, SELFPAY | PROVIDERS: PCP Nurse Practitioner Family; Referring Provider Nurse Practitioner Family; Visit Provider Urology | DX: N20.1 Calculus of ureter (principal); E11.9 Type 2 diabetes mellitus without complications; G20 Parkinson's disease; Z79.4 Long term (current) use of insulin | CPT/HCPCS: 99213 ==

== ENCOUNTER 2019-10-26 09:03 | Outpatient (CLI) | payer OTHER, SELFPAY ==
[2019-10-27 20:41] LABS: COVID-19 RT-PCR Result NEGATIVE (Negative)
== END 2019-10-26 09:23 ==
PROVIDERS: PCP Nurse Practitioner Family; Visit Provider Urology
DX: Z11.59 Encounter for screening for other viral diseases (principal)
CPT/HCPCS: U0003

== ENCOUNTER 2019-10-27 06:07 | Emergency (ER) | payer OTHER, SELFPAY ==
[2019-10-27 06:06] VITALS: BP 140/83; PULSE 64; RESP 16; TEMP 36.6; O2SAT 97
--- NOTE | 2019-10-27 06:14 | ED.GENADUL_ITS ---
Discharge Plan Disposition Patient Disposition: HOME Condition: Good Discharge Details Chief Complaint: Urinary Clinical Impression: Hematuria, Bladder obstruction Primary Care Provider: Joanne Riggins ED Provider: Pramod Pruitt Home Meds and New Rx's Prescriptions: Continued tramadol 50 mg tablet 25 mg PO DAILY RF: 0 carbidopa-levodopa 25-100 mg tablet extended release 2 tab PO QID Qty: 240 RF: 11 melatonin 5 mg tablet 10 mg PO HS PRNRF: 0 carvedilol 3.125 MG tablet 3.125 mg PO BID RF: 0 ondansetron HCl [Zofran] 4 mg tablet 4 mg PO Q8H PRN (Reason: nausea and vomiting) Qty: 10 RF: 0 acidophilus-pectin, citrus 25 million cell -100 mg Tablet 1 cap PO TID Qty: 21 RF: 0 Discharge Instructions Instructions: Hematuria (ED) Additional Instructions: Please leave the Robledo in until you see Dr. Garcias tomorrow. Please follow-up with him for your scheduled appointment. If you notice any worsening of your symptoms, or any new symptoms such as vomiting, diarrhea, fever, chills, shortness of breath, chest pain, numbness, weakness, or fainting , please return immediately to the emergency department for reevaluation. Please follow up with your primary care provider as soon as possible for reassessment and reevaluation. As always, it was a pleasure participating in your medical care today. Referrals: Dov Garcias MD [ [facility] STAFF PHYSICIAN] - Joanne Riggins [Primary Care Provider] - Discharge Data Discharge Date/Time-TO BE ENTERED AT DEPARTURE: 10/27/19 08:48 Medical Decision Making <Roni Matthews DO - Last Filed: 10/27/19 20:20> 79-year-old male with a past medical history of prostatic hypertrophy, diabetes, MGUS, previous colon cancer, bowel resection with Leonid fundoplication, cholecystectomy, irritable bowel syndrome, and kidney stone with current stent, currently waiting for stent and stone removal with scheduled surgery for tomorrow, presents today for difficulty urinating. Patient states that he has had blood in his urine for the last week or 2, this is been consistent and expected, however yesterday at 8 AM was the last time he was able to pee. He is unable to get any additional urine out even with straining. He admits to notable pressure in the suprapubic region and a small amount of pain in this area. He denies any fever, chills, vomiting, diarrhea, hematochezia melena or acholic stool. No other complaints at this time. No other modifying factors. Signs and symptoms appear consistent with bladder obstruction, most likely from clot from his chronic hematuria. Will put in a three-way Rob[place]o, washout, monitor closely and reassess. 7:22 AM Three-way Robledo has been placed, gross hematuria but no clots whatsoever. Patient is only had about 200 cc out. He states that the pressure is improved notably. He now states that the last time he urinated was actually midnight/7 hours ago, this appears more consistent. We are currently waiting on labs and x-ray to evaluate for stent placement. 7:45 AM Patient CBC has returned, white count is 1.62, and has actually slightly improved from his last visit, platelets are 40 which is also an improvement from 31 on his last visit. Renal function is stable, no signs of acute kidney injury, bilirubin is slightly elevated however [facility] this is unremarkable and consistent with prior bilirubin levels. Urinalysis is negative for nitrites and negative for leuk esterase, and not suggestive of infection. Currently waiting on x-ray results. Patient will be signed out to my colleague Dr. Pramod Pruitt for final reassessment after x-ray results. Expectant discharge to Dr. Garcias follow-up appointment tomorrow. <Pramod Pruitt MD - Last Filed: 10/27/19 08:05> Received signout from Dr. Matthews. Please see his note regarding details of patient's history, presentation, exam and plan of care. Attending radiologist: Note of right-sided nephroureteral stent in place, grossly stable in location. Patient with draining catheter bag. Follow-up with urology tomorrow as planned. HPI <Roni Matthews DO - Last Filed: 10/27/19 20:20> General Date/Time Provider Initiated Documentation: 10/27/19 06:40 . HPI Narrative: 79-year-old male with a past medical history of prostatic hypertrophy, diabetes, MGUS,previous colon cancer, bowel resection with Leonid fundoplication, cholecystectomy, irritable bowel syndrome, and kidney stone with current stent, currently waiting for stent and stone removal with scheduled surgery for tomorrow, presents today for difficulty urinating. Patient states that he has had blood in his urine for the last week or 2, this is been consistent and expected, however yesterday at 8 AM was the last time he was able to pee. He is unable to get any additional urine out even with straining. He admits to notable pressure in the suprapubic region and a small amount of pain in this area. He denies any fever, chills, vomiting, diarrhea, hematochezia melena or acholic stool. No other complaints at this time. No other modifying factors. Related Data Home Medications Medication Instructions Recorded Confirmed carvedilol 3.125 mg PO BID 05/30/13 10/27/19 tramadol 50 mg tablet 25 mg PO DAILY tab 01/26/19 10/27/19 ondansetron HCl [Zofran] 4 mg PO Q8H PRN #10 tab 03/05/19 10/27/19 carbidopa ER 25 mg-levodopa 100 mg 2 tab PO QID #240 tab 07/27/19 10/27/19 tablet,extended release melatonin 5 mg tablet 10 mg PO HS PRN 07/27/19 10/27/19 acidophilus-pectin, citrus 1 cap PO TID #21 tab 10/13/19 10/26/19 Previous Rx's Medication Instructions Recorded ondansetron HCl [Zofran] 4 mg PO Q8H PRN #10 tab 03/05/19 carbidopa ER 25 mg-levodopa 100 mg 2 tab PO QID #240 tab 07/27/19 tablet,extended release acidophilus-pectin, citrus 1 cap PO TID #21 tab 10/13/19 Allergies Allergy/AdvReac Type Severity Reaction Status Date / Time leuprolide acetate Allergy Severe Swelling/Ed Verified 10/27/19 06:14 [From Lupron] isabelle adhesive Allergy Intermediate Skin Rash Verified 10/27/19 06:14 enalapril [Enalapril] AdvReac Severe Hyperkalemi Verified 10/27/19 06:14 a aspirin AdvReac Intermediate Verified 10/27/19 06:14 esomeprazole magnesium AdvReac Intermediate Diarrhea Verified 10/27/19 06:14 [From Nexium] metformin AdvReac Intermediate Diarrhea Verified 10/27/19 06:14 acetaminophen AdvReac Mild Diarrhea Verified 10/27/19 06:14 General Stated Complaint: Urinary SHEKHAR: 3 Review of Systems <Roni Matthews DO - Last Filed: 10/27/19 20:20> All systems reviewed & are unremarkable except as noted in HPI and below PFSH <Roni Matthews DO - Last Filed: 10/27/19 20:20> Medical History Anxiety (Chronic) Cirrhosis of liver (Chronic) On beta blockers; Under care of Dr. Joe. Colon cancer (Chronic) Multiple polypectomies. 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 Liver cirrhosis MGUS (monoclonal gammopathy of unknown significance) (Chronic) Mild cognitive impairment (Acute 08/17/15) HANS (obstructive sleep apnea) Pancytopenia (Chronic) Thought to be secondary to liver cirrhosis and splenic sequestratioin. Please note bone marrow biopsy was negative. Parkinson disease Perirectal abscess (Resolved) Prostate cancer (Chronic 05/24/02) S/P radiation, Lupron, now on Zoladex. Restless leg syndrome (Acute 10/24/16) Streptococcal bacteremia (Resolved) s/p removal of buried central venous access device. no bleeding. no pain. cont care. Tubulovillous adenoma of colon (Resolved 11/21/15) Ventral hernia (Chronic) Visual hallucination (Inactive) Surgical History BONE MARROW BIOPSY (11/25/14) LISSET Colectomy 1993 colonoscopy (11/21/15) H/O ventral hernia repair (Chronic) History of bowel resection (Chronic) History of Leonid fundoplication (Chronic) S/P cholecystectomy (Acute) S/P ear surgery (Acute) Family History Maternal Cousin Colon cancer Maternal Cousin Colon cancer Mother Cervical cancer Social History Smoking/Tobacco Use Status: Former Tobacco Use Quit Date: 06/17/94 Pack-years: 35 Second Hand Exposure: No Alcohol Intake: current Alcohol Intake frequency: a few times a month Alcohol type: beer Drug use: Never Substance use type: does not use Household members: none Housing: apartment current occupation: Retired Seatbelt use: always Do you feel safe at home: Yes Do you feel safe in your relationship?: Yes Additional Social history: Exam <Roni Matthews DO - Last Filed: 10/27/19 20:20> Narrative Exam Narrative: 1.Const: Well-nourished, Well-developed, appearing stated age 2.Eyes: PERRL, no conjunctival injection, and symmetrical lids. 3.ENT: Atraumatic external nose and ears. Moist MM. Neck: Symmetric, trachea midline, No thyromegaly. 4.CVS: +S1/S2, No murmurs or gallops. Peripheral pulses 2+ and equal in all extremities. Brisk capillary refill in all extremities. 5.RESP: Unlabored respiratory effort. Clear to auscultation bilaterally. No wheezes rales or rhonchi 6.GI: Soft, Nontender/Nondistended, No hepatosplenomegaly. No guarding or rebound. No pain at McBurney's point, negative Hooker sign, notable suprapubic pressure and palpable bladder. 7.MSK: Normocephalic/Atraumatic, Extremities w/o deformity or ttp No cyanosis or clubbing, Normal movement of all extremities 8.Skin: Warm, Dry. No rashes or lesions. 9.Neuro: [employer] II-XII grossly intact. Sensation grossly intact, no focal neurologic deficits. 10.Psych: (AAO) x3. Appropriate mood and affect Course <Roni Matthews DO - Last Filed: 10/27/19 20:20> Vital Signs Vital signs: Vital Signs Temperature 36.6 C 10/27/19 06:06 Pulse 64 10/27/19 06:06 Respiratory Rate 16 10/27/19 06:06 Blood Pressure 140/83 10/27/19 06:06 Pulse Oximetry 97 10/27/19 06:06 Temperature 36.6 C 10/27/19 06:06 Temperature Source Temporal Artery Scan 10/27/19 06:06 Pulse 64 10/27/19 06:06 Respiratory Rate 16 10/27/19 06:06 Respiratory Effort Non-Labored 10/27/19 06:12 Blood Pressure 140/83 10/27/19 06:06 Blood Pressure Position Sitting 10/27/19 06:06 Pulse Oximetry 97 10/27/19 06:06 Oxygen Delivery Method Room Air 10/27/19 06:06 Oxygen Flow Rate 0 10/27/19 06:06 Pain Level 8 10/27/19 06:06 Comment 10/27/19 06:06 Sign Out <Roni Mattehws DO - Last Filed: 10/27/19 20:20> Sign Out Data: Sign Out Comment: Pending x-ray read and final laboratory reassessment. Recommend keeping Robledo in, with follow-up with Dieter tomorrow morning for scheduled appointment/surgery. Last updated by Roni Matthews DO at 10/27/19 07:39
[2019-10-27] MEDS: Lidocaine 2% Jelly 6 ML SYR (06:35)
[2019-10-27 07:08] LABS: Bilirubin Small (Negative); Blood Large (Negative); Clarity Turbid (Clear); Glucose Negative (Negative); Ketones Trace mg/dL (Negative); Leukocyte Esterase Negative (Negative); Nitrite Negative (Negative); Specific Gravity 1.025 (1.005-1.025)
[2019-10-27 07:10] LABS: C & S Indicated? Yes; RBC >50 HPF (0-2)
[2019-10-27 07:15] LABS: Abs Immature Grans 0.01 10^3/uL (0.0-0.06); Absolute Basophil Count 0.01 10^3/uL (0.0-0.2); Absolute Eosinophil Count 0.15 10^3/uL (0.0-0.7); Absolute Lymphocyte Count 0.27 10^3/uL (1.2-3.4); Absolute Monocyte Count 0.19 10^3/uL (0.1-0.8); Absolute Neutrophil Count 0.99 10^3/uL (1.2-6.7); Basophils % 0.6; Eosinophils % 9.3; HCT 29.7 % (40.0-50.0); HGB 9.8 g/dL (13.5-17.5); Immature Grans % 0.6; Lymphocytes % 16.7; MCH 29.9 pg (27.0-33.0); MCV 90.5 fL (80-95); MPV 10.8 fL (8.0-11.0); Monocytes % 11.7; Neutrophils % 61.1; Nucleated RBC 0 %; RBC 3.28 10^6/uL (4.36-5.78); RDW 15.5 % (11.8-14.1); RDW-SD 50.7 fL
[2019-10-27 07:27] LABS: WBC 1.62 10^3/uL (4.4-10.8)
[2019-10-27 07:29] LABS: Diff Comment Diff Reviewed; Platelet Count 40 10^3/uL (130-400); RBC Morphology Normal
[2019-10-27 07:30] LABS: AST 36 U/L (15-37); Albumin 2.6 g/dL (3.4-5.0); Alkaline Phosphatase 152 U/L (46-116); Anion Gap 7.1 mmol/L (3-11); BUN 13 mg/dL (7-18); Bilirubin, Total 1.5 mg/dL (0.2-1.0); CO2 25.9 mmol/L (21.0-32.0); CREATININE 0.88 mg/dL (0.70-1.30); Calcium 7.9 mg/dL (8.5-10.1); Chloride 107 mmol/L (98-107); Glucose 114 mg/dL (74-106); Potassium 3.7 mmol/L (3.5-5.1); Sodium 140 mmol/L (136-145); Total Protein 5.7 g/dL (6.4-8.2)
[2019-10-27 07:39] LABS: ALT 7 U/L (16-63)
--- NOTE | 2019-10-27 07:49 | DI.RAD_ITS ---
EXAM: 2D digital imaging was performed. CLINICAL HISTORY: known right stent, eval for change in placement. COMPARISON: No exams were available for comparison TECHNIQUE: Supine views of the abdomen performed. FINDINGS: A right sided ureteral stent is again noted which appears unchanged in position. A small stone projec ts over the lower pole of the right kidney. A small stone is again noted overlying the lower pole of the left kidney. Cholecystectomy clips are seen. No stone is seen along the course of the ureteral st ent. IMPRESSION: No change in position of right ureteral stent. Bilateral nephrolithiasis. DATA REPOSITORY: RADIATION DOSE DELIVERED:
--- NOTE | 2019-10-27 08:01 | DI.VRAD_ITS ---
PROCEDURE INFORMATION: Exam: XR Abdomen, 1 View Exam date and time: 10/27/2019 7:43 AM Age: 79 years old Clinical indication: Device placement; Urinary device; Renal or nephroureteral stent; Patient HX: Known RT stent, eval for change in placement TECHNIQUE: Imaging protocol: XR of the abdomen. Views: Frontal supine view of the abdomen. 1 View. COMPARISON: CR XR ABDOMEN FLAT PLATE 10/16/2019 9:23 PM FINDINGS: Gastrointestinal tract: Normal. No bowel dilation. Organs: Right-sided nephroureteral stent in place with distal tip just to the right of the midline in the urinary bladder. The distal coil is grossly stable in location. The proximal coil is more inferiorly located when compared with the prior. Vasculature: Probable vascular calcifications noted left hemipelvis Bones/joints: Unremarkable. IMPRESSION: Right-sided nephroureteral stent in place with distal tip just to the right of the midline in the urinary bladder. The distal coil is grossly stable in location. The proximal coil is more inferiorly located when compared with the prior. Dictated and Authenticated by: Tyler Atwood MD. Ordering:VENECIA Tamayo MD
[2019-10-27 08:43] VITALS: BP 165/74; PULSE 64; RESP 18; TEMP 36.5; O2SAT 96
--- NOTE | 2019-10-27 08:51 | NUR.NOTE ---
leg bag attached to 3 way cath to go home.Nursing Note:
== END 2019-10-27 08:48 | disposition home or self-care (01) ==
PROVIDERS: Student in an Organized Health Care Education/Training Program; Emergency Provider Emergency Medicine; PCP Nurse Practitioner Family
DX: N32.0 Bladder-neck obstruction (principal); R31.9 Hematuria, unspecified; N20.9 Urinary calculus, unspecified; Z96.0 Presence of urogenital implants; E11.9 Type 2 diabetes mellitus without complications; I10 Essential (primary) hypertension; G20 Parkinson's disease; G25.81 Restless legs syndrome; R29.6 Repeated falls; R26.81 Unsteadiness on feet
CPT/HCPCS: 51702; 80053; 99213; 99284; 99441; 74018; 81003; 81015; 85025; 87086

== ENCOUNTER 2019-10-27 20:25 | Day surgery (SDC) | payer OTHER, SELFPAY ==
[2019-10-27] VITALS (12 sets, daily range): BP systolic 128–142; BP diastolic 59–65; PULSE 60–73; RESP 12–20; TEMP 36.8; O2SAT 97–98
--- NOTE | 2019-10-27 20:20 | W.ED.GENAD ---
Discharge Plan Disposition Patient Disposition: [facility] INPATIENT Condition: Good Discharge Details Clinical Impression: Hematuria Primary Care Provider: Joanne Riggins ED Provider: Brandon Agrawal Home Meds and New Rx's Prescriptions: No Action tramadol 50 mg tablet 25 mg PO DAILY RF: 0 carbidopa-levodopa 25-100 mg tablet extended release 2 tab PO QID Qty: 240 RF: 11 melatonin 5 mg tablet 10 mg PO HS PRNRF: 0 carvedilol 3.125 MG tablet 3.125 mg PO BID RF: 0 ondansetron HCl [Zofran] 4 mg tablet 4 mg PO Q8H PRN (Reason: nausea and vomiting) Qty: 10 RF: 0 acidophilus-pectin, citrus 25 million cell -100 mg Tablet 1 cap PO TID Qty: 21 RF: 0 Medical Decision Making <Roni Matthews, - Last Filed: 10/28/19 08:39> 79-year-old male with a past medical history of prostatic hypertrophy, diabetes, MGUS, previous colon cancer, bowel resection with Leonid fundoplication, cholecystectomy, irritable bowel syndrome, and kidney stone with current stent, currently waiting for stent and stone removal with scheduled surgery for tomorrow. He was seen this morning for urinary retention, and suprapubic pain mild right flank pain. Initial three-way washout was planned, however when catheter was placed he only had hematuria, and no evidence of clots whatsoever. He was flowing freely into the bag. Pain was completely relieved with catheter. No signs of acute appendicitis at that time, urinalysis showed negative nitrates and leuk esterase, inconsistent with infection. X-ray showed no change in stent placement, patient was discharged for follow-up with Dieter. Unfortunately this evening patient states that the suprapubic pain and pressure has returned, despite the bag continuing to flow. EMS was called and patient was brought for evaluation. Aside for the suprapubic pain he has no other complaints. No other modifying factors. He does admit to seeing some clots in the bag today, but admits to continued urinary flow. Physical exam demonstrates mild suprapubic tenderness, genital exam unremarkable. No signs of an acute surgical abdomen. Because of the continued pain and discomfort we will get a CT scan for further evaluation. We will get basic labs, monitor closely and reassess. 11:[address] scan results have returned, multiple abnormalities but none of which appear overly acute, does have hepato-cirrhosis with splenomegaly. Diffuse mesenteric edema, ascites, pancreatic cyst that is unchanged, nonobstructing bilateral renal colliculi the largest measuring 3 mm. Patient's vital signs remained hemodynamically stable. Laboratory work-up shows stable platelets hemoglobin and good renal function. Urinalysis shows negative leuk esterase, negative nitrates. I did discuss staying here overnight versus discharge, the patient lives alone, he is concerned about going home. He does have an appointment with Dr. Cardoza in the morning. We will keep the patient in the ED this evening, and discussed the case with Dieter in the morning. We will try contacting Dr. Dieter paniagua, for but we are unable to get a hold of him. He is not currently telecommunications clerk. We will monitor the patient throughout the evening and reassess in the a.m. 7:30 AM The patient remained stable here in the emergency department. I did discuss the case with Dr. Cardoza. He will bring the patient to the OR later this morning for definitive management, stent removal, and stone removal. Patient will be signed out to my colleague Dr. Agrawal in the interim. Patient remained stable in the ED. Pending transition to the OR. FINDINGS: Lungs: Streaky and reticular opacities at the lung bases, probably atelectasis and/or scarring. Mediastinal space: 4.0 cm x 5.5 cm hiatal hernia with hazy stranding in the herniated adjacent fat Liver: Shrunken liver with a nodular contour in keeping with hepatic cirrhosis. Small indeterminate hypoattenuating hepatic lesion, incompletely characterized but most likely a small cyst or hemangioma. Gallbladder and bile ducts: Prior cholecystectomy. No biliary dilatation. Pancreas: 1.0 cm cystic lesion in the pancreatic head measuring 8 Hounsfield units density on image 31 of series 2, also seen on the prior exam. Pancreatic cyst suspected. Pseudocyst or cystic neoplasm not excluded. Otherwise grossly unremarkable pancreas. Spleen: Gross splenomegaly with a craniocaudal dimension of 18 cm Adrenals: Small adrenal glands. Clinical correlation recommended to exclude adrenal insufficiency. Kidneys and ureters: Double pigtail ureteral stent on the right extending from the renal collecting system into the urinary bladder. No gross peristent calculus demonstrated. Mild prominence of the right renal collecting system. 3 cm parapelvic renal cyst on the right. Nonobstructing renal calculi with the largest measuring 3 mm in the left lower pole. No left-sided hydronephrosis. Stomach and bowel: No oral contrast. Stomach partially decompressed. No small bowel dilatation to suggest obstruction. Prior right hemicolectomy with an enterocolic anastomosis in the right mid abdomen. Otherwise normal-appearing colon. No evidence of diverticulitis or colitis. Appendix: Presumed surgically absent at the time of prior right hemicolectomy. Intraperitoneal space: Extensive ascites throughout the abdominal cavity. Diffuse mesenteric edema. No free air. No frankly organized fluid collection. Vasculature: Normal caliber abdominal aorta. Diffuse engorgement of the mesenteric venous structures. Bulky varices at the splenic hilum with a splenorenal shunt. Portal venous hypertension suggested. Lymph nodes: No pathologically enlarged mesenteric, retroperitoneal, or pelvic sidewall lymph nodes. Bladder: Urinary bladder collapsed around a Robledo catheter. Reproductive: Normal-sized prostate gland. Metallic surgical material adjacent to the prostate gland. Prior prostate biopsies? Other prostate procedure? Seminal vesicles partially obscured but grossly unremarkable, as seen. Bones/joints: Compression deformity at L3 with moderate loss of anterior vertebral height Spinal degenerative change with anterior osteophytes at several lower thoracic levels and lumbosacral facet arthrosis. No acute fracture seen among the bones of the abdomen or pelvis. Soft tissues: Apparent prior anterior abdominal wall repair. 1.8 cm x 3.3 cm fat and fluid containing left paramidline ventral hernia, image 39 of series 2. 1.0 cm x 1.0 cm fat containing ventral hernia at the umbilicus, image 57 of series 2. Surgical clips in the right inguinal canal. IMPRESSION: 1. Hepatic cirrhosis. Gross splenomegaly, 18 cm craniocaudal dimension. Diffuse engorgement of mesenteric venous structures. Bulky splenic varices with a splenorenal shunt. Portal venous hypertension suggested. 2. Diffuse mesenteric edema. Extensive ascites. 3. Double pigtail ureteral stent on the right in good position. Only mild prominence of the right renal collecting system. 4. Nonobstructing bilateral renal calculi with the largest measuring 3 mm on the left. 5. Prior right hemicolectomy. No acute bowel pathology demonstrated. 6. 1.0 cm cystic lesion in the pancreatic head measuring 8 Hounsfield units density, also seen on the prior exam. A pancreatic cyst is suspected. A pseudocyst or cystic neoplasm could have a similar appearance. Thank you for allowing us to participate in the care of your patient. Dictated and Authenticated by: Pravin Gayle MD 10/27/2019 9:59 PM Eastern Time ([place] & [place]) <Brandon Agrawal MD - Last Filed: 10/28/19 11:02> pt has remained stable here, no new complaints, will be going to the OR with Dr. Cardoza this afternoon. Will monitor until OR ready to take him HPI <Roni Matthews DO - Last Filed: 10/28/19 08:39> General Date/Time Provider Initiated Documentation: 10/27/19 20:33. HPI Narrative: 79-year-old male with a past medical history of prostatic hypertrophy, diabetes, MGUS, previous colon cancer, bowel resection with Leonid fundoplication, cholecystectomy, irritable bowel syndrome, and kidney stone with current stent, currently waiting for stent and stone removal with scheduled surgery for tomorrow. He was seen this morning for urinary retention, and suprapubic pain mild right flank pain. Initial three-way washout was planned, however when catheter was placed he only had hematuria, and no evidence of clots whatsoever. He was flowing freely into the bag. Pain was completely relieved with catheter. No signs of acute appendicitis at that time, urinalysis showed negative nitrates and leuk esterase, inconsistent with infection. X-ray showed no change in stent placement, patient was discharged for follow-up with Dieter. Unfortunately this evening patient states that the suprapubic pain and pressure has returned, despite the bag continuing to flow. EMS was called and patient was brought for evaluation. Aside for the suprapubic pain he has no other complaints. No other modifying factors. He does admit to seeing some clots in the bag today, but admits to continued urinary flow. Related Data Home Medications Medication Instructions Recorded Confirmed carvedilol 3.125 mg PO BID 05/30/13 10/27/19 tramadol 50 mg tablet 25 mg PO DAILY tab 01/26/19 10/27/19 ondansetron HCl [Zofran] 4 mg PO Q8H PRN #10 tab 03/05/19 10/27/19 carbidopa ER 25 mg-levodopa 100 mg 2 tab PO QID #240 tab 07/27/19 10/27/19 tablet,extended release melatonin 5 mg tablet 10 mg PO HS PRN 07/27/19 10/27/19 acidophilus-pectin, citrus 1 cap PO TID #21 tab 10/13/19 10/27/19 Previous Rx's Medication Instructions Recorded ondansetron HCl [Zofran] 4 mg PO Q8H PRN #10 tab 03/05/19 carbidopa ER 25 mg-levodopa 100 mg 2 tab PO QID #240 tab 07/27/19 tablet,extended release acidophilus-pectin, citrus 1 cap PO TID #21 tab 10/13/19 Allergies Allergy/AdvReac Type Severity Reaction Status Date / Time leuprolide acetate Allergy Severe Swelling/Ed Verified 10/27/19 06:14 [From Lupron] isabelle adhesive Allergy Intermediate Skin Rash Verified 10/27/19 06:14 enalapril [Enalapril] AdvReac Severe Hyperkalemi Verified 10/27/19 06:14 a aspirin AdvReac Intermediate Verified 10/27/19 06:14 esomeprazole magnesium AdvReac Intermediate Diarrhea Verified 10/27/19 06:14 [From Nexium] metformin AdvReac Intermediate Diarrhea Verified 10/27/19 06:14 acetaminophen AdvReac Mild Diarrhea Verified 10/27/19 06:14 General SHEKHAR: 3 Review of Systems <Roni Matthews DO - Last Filed: 10/28/19 08:39> All systems reviewed & are unremarkable except as noted in HPI and below PFSH <Roni Matthews DO - Last Filed: 10/28/19 08:39> Medical History (Updated 10/27/19 @ 20:41 by Roni Matthews DO) Anxiety Cirrhosis of liver On beta blockers; Under care of Dr. Joe. Colon cancer Multiple polypectomies. 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 Liver cirrhosis MGUS (monoclonal gammopathy of unknown significance) Mild cognitive impairment (08/17/15) HANS (obstructive sleep apnea) Pancytopenia Thought to be secondary to liver cirrhosis and splenic sequestratioin. Please note bone marrow biopsy was negative. Parkinson disease Perirectal abscess Prostate cancer (05/24/02) S/P radiation, Lupron, now on Zoladex. 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 no bleeding. no pain. cont care. 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) Ventral hernia Visual hallucination Surgical History BONE MARROW BIOPSY (11/25/14) LISSET Colectomy 1992 colonoscopy (11/21/15) H/O ventral hernia repair History of bowel resection History of Leonid fundoplication S/P cholecystectomy S/P ear surgery Family History Maternal Cousin Colon cancer Maternal Cousin Colon cancer Mother Cervical cancer Social History Smoking/Tobacco Use Status: Former Tobacco Use Quit Date: 06/17/94 Pack-years: 37 Second Hand Exposure: No Alcohol Intake: current Alcohol Intake frequency: holidays/special occasions only Alcohol type: beer Drug use: Never Substance use type: does not use Household members: none Housing: apartment current occupation: Retired Seatbelt use: always Do you feel safe at home: Yes Do you feel safe in your relationship?: Yes Exam <Roni Matthews DO - Last Filed: 10/28/19 08:39> Narrative Exam Narrative: 1.Const: Well-nourished, Well-developed, appearing stated age 2.Eyes: PERRL, no conjunctival injection, and symmetrical lids. 3.ENT: Atraumatic external nose and ears. Moist MM. Neck: Symmetric, trachea midline, No thyromegaly. 4.CVS: +S1/S2, No murmurs or gallops. Peripheral pulses 2+ and equal in all extremities. Brisk capillary refill in all extremities. 5.RESP: Unlabored respiratory effort. Clear to auscultation bilaterally. No wheezes rales or rhonchi 6.GI: Soft, Nontender/Nondistended, No hepatosplenomegaly. No guarding or rebound. No penile tenderness, no significant blood around the meatus. Mild suprapubic tenderness. Normal genital exam otherwise. No right lower quadrant flank or CVA tenderness. 7.MSK: Normocephalic/Atraumatic, Extremities w/o deformity or ttp No cyanosis or clubbing, Normal movement of all extremities 8.Skin: Warm, Dry. No rashes or lesions. 9.Neuro: logistics officer II-XII grossly intact. Sensation grossly intact, no focal neurologic deficits. 10.Psych: (AAO) x3. Appropriate mood and affect Sign Out <Roni Matthews DO - Last Filed: 10/28/19 08:39> Sign Out Data: Sign Out Comment: pending or with cardoza Last updated by Roni Matthews DO at 10/28/19 07:57
[2019-10-27 20:58] LABS: ALT 8 U/L (16-63); AST 36 U/L (15-37); Albumin 2.7 g/dL (3.4-5.0); Alkaline Phosphatase 142 U/L (46-116); Anion Gap 5.4 mmol/L (3-11); BUN 11 mg/dL (7-18); Bilirubin, Total 1.4 mg/dL (0.2-1.0); CO2 27.6 mmol/L (21.0-32.0); CREATININE 0.99 mg/dL (0.70-1.30); Calcium 8.1 mg/dL (8.5-10.1); Chloride 108 mmol/L (98-107); Glucose 167 mg/dL (74-106); Potassium 4.2 mmol/L (3.5-5.1); Sodium 141 mmol/L (136-145); Total Protein 5.8 g/dL (6.4-8.2)
[2019-10-27 21:00] LABS: Abs Immature Grans 0.01 10^3/uL (0.0-0.06); Absolute Basophil Count 0.01 10^3/uL (0.0-0.2); Absolute Eosinophil Count 0.14 10^3/uL (0.0-0.7); Absolute Monocyte Count 0.26 10^3/uL (0.1-0.8); Absolute Neutrophil Count 1.31 10^3/uL (1.2-6.7); Basophils % 0.5; Eosinophils % 6.9; HCT 29.4 % (40.0-50.0); HGB 9.5 g/dL (13.5-17.5); Immature Grans % 0.5; Lymphocytes % 14.8; MCH 29.7 pg (27.0-33.0); MCHC 32.3 % (32.0-36.0); MCV 91.9 fL (80-95); MPV 11.2 fL (8.0-11.0); Monocytes % 12.8; Neutrophils % 64.5; Nucleated RBC 0 %; RDW 15.9 % (11.8-14.1); RDW-SD 53.3 fL; WBC 2.03 10^3/uL (4.4-10.8)
[2019-10-27 21:08] LABS: Platelet Count 41 10^3/uL (130-400)
[2019-10-27 21:20] LABS: Diff Comment PLT Morph Reviewed; RBC Morphology Normal
--- NOTE | 2019-10-27 21:20 | DI.CT_ITS ---
EXAM: CT ABDOMEN PELVIS WO CLINICAL HISTORY: suprapubic pain and right flank pain, known stent. TECHNIQUE: Imaging Protocol: Axial computed tomography images with coronal and sagittal reformatted images were created and reviewed. Oral: / no COMPARISON: CT CT ABDOMEN PELVIS W from 10/08/2019 FINDINGS: Heart is enlarged. Mild atelectatic changes are seen at the lung bases. Ascites and cirrhotic live r are again noted. The amount of ascites appears to have increased. The spleen is enlarged, unchang ed. A hiatal hernia is noted. Patient is status post cholecystectomy. There is scarring in the upp er midline of the anterior abdominal wall. There is a fatty containing hernia to the left, now cont aining fluid. A tiny umbilical hernia is seen. A Robledo catheter is noted in the bladder. There is a right-sided ureteral stent. The proximal pigtail projects at the upper pole of the right kidney. There is mild right hydronephrosis. No ureteral calculi are seen. A nonobstructing stone is noted a t the lower pole of the left kidney. There is no left hydronephrosis. Additional nonobstructing sto ne is seen at lower pole of the right kidney. There is a cyst near the lower pole of the right kidne y, unchanged. The prostate does not appear enlarged. Patient is again noted to be status post parti al colectomy. There is no bowel dilatation or bowel wall edema. A small cyst is again noted in the h ead of the pancreas. Stable L3 compression fracture. No new compression fractures are seen. There are facet degenerative changes. IMPRESSION: Persistent mild right hydronephrosis. Right ureteral stent in position. No ureteral calculi. Nonob structing stones at the lower poles of both kidneys. Cirrhotic liver. Increasing ascites. RADIATION DOSE DELIVERED: Total DLP DATA REPOSITORY: All CT scans at this facility are submitted to the National Radiology Data Registry (NRDR) Dose Index Registry (DIR) with the [employer] (ACR). RADIATION OPTIMIZATION: All CT scans at this facility use at least one of these dose optimization te chniques: automated exposure control; mA and/or kV adjustment per patient size (includes targeted exa ms where dose is matched to clinical indication); or iterative reconstruction.
--- NOTE | 2019-10-27 21:59 | DI.VRAD_ITS ---
PROCEDURE INFORMATION: Exam: CT Abdomen And Pelvis Without Contrast Exam date and time: 10/27/2019 9:09 PM Age: 79 years old Clinical indication: Abdominal pain; Localized; Other: Suprapubic and right flank pain; Prior surgery; Surgery date: <1 month; Surgery type: Ureteral stent placement 2 weeks ago TECHNIQUE: Imaging protocol: Computed tomography of the abdomen and pelvis without contrast. Radiation optimization: All CT scans at this facility use at least one of these dose optimization techniques: automated exposure control; mA and/or kV adjustment per patient size (includes targeted exams where dose is matched to clinical indication); or iterative reconstruction. COMPARISON: CT ABDOMEN PELVIS W 10/08/2019 12:07 PM FINDINGS: Lungs: Streaky and reticular opacities at the lung bases, probably atelectasis and/or scarring. Mediastinal space: 4.0 cm x 5.5 cm hiatal hernia with hazy stranding in the herniated adjacent fat Liver: Shrunken liver with a nodular contour in keeping with hepatic cirrhosis. Small indeterminate hypoattenuating hepatic lesion, incompletely characterized but most likely a small cyst or hemangioma. Gallbladder and bile ducts: Prior cholecystectomy. No biliary dilatation. Pancreas: 1.0 cm cystic lesion in the pancreatic head measuring 8 Hounsfield units density on image 31 of series 2, also seen on the prior exam. Pancreatic cyst suspected. Pseudocyst or cystic neoplasm not excluded. Otherwise grossly unremarkable pancreas. Spleen: Gross splenomegaly with a craniocaudal dimension of 18 cm Adrenals: Small adrenal glands. Clinical correlation recommended to exclude adrenal insufficiency. Kidneys and ureters: Double pigtail ureteral stent on the right extending from the renal collecting system into the urinary bladder. No gross peristent calculus demonstrated. Mild prominence of the right renal collecting system. 3 cm parapelvic renal cyst on the right. Nonobstructing renal calculi with the largest measuring 3 mm in the left lower pole. No left-sided hydronephrosis. Stomach and bowel: No oral contrast. Stomach partially decompressed. No small bowel dilatation to suggest obstruction. Prior right hemicolectomy with an enterocolic anastomosis in the right mid abdomen. Otherwise normal-appearing colon. No evidence of diverticulitis or colitis. Appendix: Presumed surgically absent at the time of prior right hemicolectomy. Intraperitoneal space: Extensive ascites throughout the abdominal cavity. Diffuse mesenteric edema. No free air. No frankly organized fluid collection. Vasculature: Normal caliber abdominal aorta. Diffuse engorgement of the mesenteric venous structures. Bulky varices at the splenic hilum with a splenorenal shunt. Portal venous hypertension suggested. Lymph nodes: No pathologically enlarged mesenteric, retroperitoneal, or pelvic sidewall lymph nodes. Bladder: Urinary bladder collapsed around a Robledo catheter. Reproductive: Normal-sized prostate gland. Metallic surgical material adjacent to the prostate gland. Prior prostate biopsies? Other prostate procedure? Seminal vesicles partially obscured but grossly unremarkable, as seen. Bones/joints: Compression deformity at L3 with moderate loss of anterior vertebral height Spinal degenerative change with anterior osteophytes at several lower thoracic levels and lumbosacral facet arthrosis. No acute fracture seen among the bones of the abdomen or pelvis. Soft tissues: Apparent prior anterior abdominal wall repair. 1.8 cm x 3.3 cm fat and fluid containing left paramidline ventral hernia, image 39 of series 2. 1.0 cm x 1.0 cm fat containing ventral hernia at the umbilicus, image 57 of series 2. Surgical clips in the right inguinal canal. IMPRESSION: 1. Hepatic cirrhosis. Gross splenomegaly, 18 cm craniocaudal dimension. Diffuse engorgement of mesenteric venous structures. Bulky splenic varices with a splenorenal shunt. Portal venous hypertension suggested. 2. Diffuse mesenteric edema. Extensive ascites. 3. Double pigtail ureteral stent on the right in good position. Only mild prominence of the right renal collecting system. 4. Nonobstructing bilateral renal calculi with the largest measuring 3 mm on the left. 5. Prior right hemicolectomy. No acute bowel pathology demonstrated. 6. 1.0 cm cystic lesion in the pancreatic head measuring 8 Hounsfield units density, also seen on the prior exam. A pancreatic cyst is suspected. A pseudocyst or cystic neoplasm could have a similar appearance. Dictated and Authenticated by: Pravin Gayle MD. Ordering:VENECIA Tamayo MD
[2019-10-27 22:52] LABS: Bilirubin Small (Negative); Blood Large (Negative); Clarity Cloudy (Clear); Glucose 100 mg/dL (Negative); Ketones Trace mg/dL (Negative); Leukocyte Esterase Negative (Negative); Nitrite Negative (Negative); Specific Gravity >= 1.030 (1.005-1.025); Urobilinogen 0.2 EU/dL (Up TO 0.2)
[2019-10-27 22:54] LABS: C & S Indicated? Yes; RBC >50 HPF (0-2)
[2019-10-28] VITALS (93 sets, daily range): BP systolic 113–172; BP diastolic 48–85; PULSE 53–73; RESP 11–26; TEMP 36.3–36.7; O2SAT 93–99
--- NOTE | 2019-10-28 08:31 | HPE_ITS ---
Date of service: 10/28/19 Time of Service: 12:03 Assessment and Plan Assessment and plan (1) Calculus of proximal right ureter: Status: Acute Assessment and plan: For cystoscopy, remove right ureteral stent, right flexible ureteroscopy with stone manipulation History of Present Illness History of Present Illness Chief Complaint: Right renal stone Narrative: This is a 79-year-old gentleman who initially presented to the hospital with right renal colic. He was found to have a 5 mm stone at the ureteral pelvic junction. I placed a ureteral stent to relieve his obstruction. He has not passed his stone so far. He presents now for ureteroscopy. He has had hematuria since the stent was placed. He has had multiple ER visits for the hematuria and discomfort. He currently has a Robledo catheter in place. He did have a CT scan when he presented to the emergency room yesterday. The stone that was previously at the ureteropelvic junction is now in the lower pole calyx. The stent is in good position. Review of Systems Narrative: No fevers or chills No vision change or dysphasia No diabetes or thyroid No shortness of breath, cough or hemoptysis No chest pain or palpitations No nausea, vomiting. Hx colon cancer, cirrhosis No seizures, strokes. Hx Parkinsons Hx pancytopenia with ? etiology. Hx prostate cancer No gout [facility] Medical History (Updated 10/27/19 @ 20:41 by Roni Matthews DO) Anxiety Cirrhosis of liver On beta blockers; Under care of Dr. Joe. Colon cancer Multiple polypectomies. 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 Liver cirrhosis MGUS (monoclonal gammopathy of unknown significance) Mild cognitive impairment (08/17/15) HANS (obstructive sleep apnea) Pancytopenia Thought to be secondary to liver cirrhosis and splenic sequestratioin. Please note bone marrow biopsy was negative. Parkinson disease Perirectal abscess Prostate cancer (05/24/02) S/P radiation, Lupron, now on Zoladex. 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 no bleeding. no pain. cont care. 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) Ventral hernia Visual hallucination Surgical History BONE MARROW BIOPSY (11/25/14) LISSET Colectomy 1992 colonoscopy (11/21/15) H/O ventral hernia repair History of bowel resection History of Leonid fundoplication S/P cholecystectomy S/P ear surgery Family History Maternal Cousin Colon cancer Maternal Cousin Colon cancer Mother Cervical cancer Social History Smoking/Tobacco Use Status: Former Tobacco Use Quit Date: 06/17/94 Pack-years: 35 Second Hand Exposure: No Alcohol Intake: current Alcohol Intake frequency: holidays/special occasions only Alcohol type: beer Drug use: Never Substance use type: does not use Household members: none Housing: apartment current occupation: Retired Seatbelt use: always Do you feel safe at home: Yes Do you feel safe in your relationship?: Yes Meds Home Medications and Allergies Home Medications Medication Instructions Recorded Confirmed Type carvedilol 3.125 mg PO BID 05/30/13 10/27/19 History tramadol 50 mg tablet 25 mg PO DAILY tab 01/26/19 10/27/19 History ondansetron HCl [Zofran] 4 mg PO Q8H PRN #10 tab 03/05/19 10/27/19 Rx carbidopa ER 25 mg-levodopa 100 mg 2 tab PO QID #240 tab 07/27/19 10/27/19 Rx tablet,extended release melatonin 5 mg tablet 10 mg PO HS PRN 07/27/19 10/27/19 History acidophilus-pectin, citrus 1 cap PO TID #21 tab 10/13/19 10/27/19 Rx Allergies Allergy/AdvReac Type Severity Reaction Status Date / Time leuprolide acetate Allergy Severe Swelling/Ed Verified 10/27/19 06:14 [From Lupron] isabelle adhesive Allergy Intermediate Skin Rash Verified 10/27/19 06:14 enalapril [Enalapril] AdvReac Severe Hyperkalemi Verified 10/27/19 06:14 a aspirin AdvReac Intermediate Verified 10/27/19 06:14 esomeprazole magnesium AdvReac Intermediate Diarrhea Verified 10/27/19 06:14 [From Nexium] metformin AdvReac Intermediate Diarrhea Verified 10/27/19 06:14 acetaminophen AdvReac Mild Diarrhea Verified 10/27/19 06:14 Exam Narrative Exam Narrative: His hemoglobin is stable at 9.5 Neck Neck: supple Resp Effort & Inspection: normal respiratory effort Auscultation: diminished lung sounds Cardio Rate: regular rate Rhythm: regular rhythm GI Palpation: soft and no masses Neuro General: patient alert and patient awake Results Labs Result diagrams: 10/27/19 20:36 10/27/19 20:36 COVID-19 Screening Have you,or household,traveled outside [place] in last 14 days?: No Had IN PERSON contact w/suspected or confirmed C-19 person: No
--- NOTE | 2019-10-28 10:47 | DI.RAD_ITS ---
EXAM: XR RETROGRADE IN OR CLINICAL HISTORY: stent removal, cysto retrograde TECHNIQUE: 2D and realtime digital imaging was performed. CONTRAST MATERIAL: Refer to procedure report. COMPARISON: No exams were available for comparison FINDINGS: Fluoroscopy was provided for Dr. Garcias during the performance of a retrograde evaluation of the kristy l collecting system. Please refer to the procedure report for complete details. Fluoro time: 21.8 seconds IMPRESSION: RADIATION DOSE DELIVERED:
[2019-10-28] MEDS: Lactated Ringers 1,000 ML 80 ML IV (11:50)
[2019-10-28] MEDS: ceFAZolin 2 GM/50 ML BAG IVPB (12:10)
[2019-10-28] MEDS: Omnipaque 300 MG/ML 50 ML BTL (12:15)
[2019-10-28] MEDS: Lidocaine 2% Jelly 6 ML SYR (12:20)
--- NOTE | 2019-10-28 13:11 | W.PM.DSUDISC ---
Discharge Plan Disposition Patient Disposition: HOME Condition: Good Discharge Details Reason For Visit: FILIBERTO Attending Provider: Dov Garcias Primary Care Provider: Joanne Riggins Home Meds and New Rx's Prescriptions: No Action tramadol 50 mg tablet 25 mg PO DAILY RF: 0 carbidopa-levodopa 25-100 mg tablet extended release 2 tab PO QID Qty: 240 RF: 11 melatonin 5 mg tablet 10 mg PO HS PRNRF: 0 carvedilol 3.125 MG tablet 3.125 mg PO BID RF: 0 ondansetron HCl [Zofran] 4 mg tablet 4 mg PO Q8H PRN (Reason: nausea and vomiting) Qty: 10 RF: 0 acidophilus-pectin, citrus 25 million cell -100 mg Tablet 1 cap PO TID Qty: 21 RF: 0 Discharge Instructions Additional Instructions: no need to strain urine Followup appt 4 to 6 weeks with renal ultrasound expect blood in urine for 3 to 5 days, then should resolve Activity:: Activity as Tolerated Shower/Bathe:: 24 hours Diet:: As Tolerated Discharge Orders Discharge Orders: Discharge Order (Routine); Ordered 10/28/19 Ordered By: Dov Garcias DS: Diagnosis Discharge Diagnosis (1) Calculus of proximal right ureter: Status: Acute
[2019-10-28] MEDS: traMADol 50 MG TAB PO (14:14)
[2019-10-28] MEDS: Phenazopyridine 200 MG TAB PO (14:14)
--- NOTE | 2019-10-28 14:27 | ROE_ITS ---
Date of service: 10/28/19 Time of Service: 13:16 Operative Note Operative Note DATE OF PROCEDURE: 10/28/19 PRE-OP DIAGNOSIS: right renal stone POST-OP DIAGNOSIS: same PROCEDURE: cystoscopy, remove right ureteral stent, right retrograde pyelogram, right flexible ureteroscopy with stone extraction SURGEON: Dov Garcias ANESTHESIA: GLADYS ESTIMATED BLOOD LOSS: 50 PATHOLOGY: other (right renal stone for chemical analysis) Patient was transported to: PACU Patient's condition: stable Indications: This is a 79-year-old gentleman who recently presented with renal colic. Because of persistent pain, he was treated with placement of a ureteral stent. He returns now for ureteroscopy with stone manipulation He has had gross hematuria since the stent was placed. He has passed a few clots as well. He currently has a Robledo catheter in place because of clot retention Findings: stone in right lower pole calyx Few small clots within the bladder, no bladder tumors Procedure Description: The patient was brought to the operating room on 10/28/2019. After successful induction of general anesthesia, he was placed in the dorsal lithotomy position. His indwelling catheter was removed. He was given a dose of preoperative IV antibiotics. His genitalia was prepped and draped. 2% Xylocaine jelly was instilled into the urethra to act as a local anesthetic. A 22 Grenadian rigid cystoscope was passed through the urethra into the bladder. The urethra and bladder were inspected with a 30 degree lens. The pendulous, bulbous and membranous urethra was appeared normal with no strictures. The prostatic urethra showed a few small clots adherent to the prostatic mucosa. No papillary or nodular masses were seen in the prostatic urethra. The bladder neck was entered and the bladder mucosa was inspected. A stent could be seen protruding from the right ureteral orifice. The left orifice appeared normal. Posteriorly in the bladder, 2 small ulcerated areas were identified. No papillary or nodular lesions were seen. A few very small clots were seen within the bladder. The stent was grasped with alligator forceps and brought out to the level of the urethral meatus. A Glidewire was advanced through the lumen of the stent and the stent was removed leaving the wire in place. A dual-lumen catheter was advanced over the wire and a retrograde film was obtained by injecting Omnipaque through the second lumen of the dual-lumen catheter. This outlined the renal calyces for us. From his preoperative CT scan, we suspected the stone was in the lower pole calyx (having been bumped to there during stent placement) We passed a second wire through the dual-lumen catheter. We chose 1 of the wire s as a working wire and the other is a safety wire. We passed a ureteral access sheath over the working wire. We removed the wire and left the safety wire in place. I then passed the flexible ureteroscope through the ureteral access sheath up to the kidney. We inspected all calyces and identified the stone in a lower pole calyx. I was able to grasp the stone and a ZeroTip stone basket and remove it in its entirety. We sent the stone to pathology for chemical analysis. Because I suspect the bladder findings are related to trauma from the stent, we elected not to replace his ureteral stent. The safety wire was removed. The cystoscope was reintroduced. One additional small clot was identified and was evacuated with a Rod syringe. The patient tolerated this procedure well. He was taken to the recovery room in stable condition.
[2019-11-08 15:20] LABS: Source: Right Kidney
== END 2019-10-28 15:55 | disposition home or self-care (01) ==
LOC: ER 10-28 10:48 → DSU 10-28 11:47 → SUR 10-28 12:59
PROVIDERS: Student in an Organized Health Care Education/Training Program; Emergency Provider Emergency Medicine; PCP Nurse Practitioner Family; Visit Provider Urology
PROC: (CPT 52320; principal; 2019-10-28 13:00)
DX: N20.1 Calculus of ureter (principal); E11.9 Type 2 diabetes mellitus without complications; F41.9 Anxiety disorder, unspecified; Z85.46 Personal history of malignant neoplasm of prostate; K74.60 Unspecified cirrhosis of liver; I10 Essential (primary) hypertension; E78.5 Hyperlipidemia, unspecified
CPT/HCPCS: 52320; 80053; 96374; 99285; NC; 74176; 74420; 81003; 81015; 82365; 85025; 87086; J0690; J1885; J2001; Q9967

== ENCOUNTER 2019-11-02 00:51 | Outpatient (RCR) | payer OTHER, SELFPAY | END 2019-11-17 23:59 | disposition home or self-care (01) | LOC: INF 00:51 | PROVIDERS: PCP Nurse Practitioner Family; Visit Provider Internal Medicine | DX: Z53.9 Procedure and treatment not carried out, unspecified reason (principal) ==

== ENCOUNTER 2019-11-24 11:22 | Day surgery (SDC) | payer OTHER, SELFPAY ==
[2019-11-24] VITALS (19 sets, daily range): BP systolic 128–179; BP diastolic 71–81; PULSE 65–77; RESP 16–22; TEMP 36.2–36.6; O2SAT 96–100
[2019-11-24] MEDS: Simethicone/Sod Bicarb/Cit Ac, 4 gram PACKET 1 PACKET PO (11:40)
--- NOTE | 2019-11-24 11:57 | W.ED.GENAD ---
Discharge Plan Disposition Condition: Good Discharge Details Chief Complaint: ThroatFB Attending Provider: Faustina Littlejohn Primary Care Provider: Joanne Riggins ED Provider: Leeanne Maddox Discharge Instructions Activity:: Activity as Tolerated Diet:: clear liquids x 24 hrs Discharge Orders Discharge Orders: Discharge Order (Routine); Ordered 11/24/19 Ordered By: Faustina Littlejohn Discharge Data Discharge Date/Time-TO BE ENTERED AT DEPARTURE: 11/25/19 01:00 Medical Decision Making 1159: At this time will attempt effervescent granules trial to see if this decreases the sensation. 1206: Attempt number 1 with effervescent granules, unsuccessful. Patient was able to hold it down, will try one more before ordering imaging. Second attempt with effervescent granules administered by clinical staff anesthesiologist unsuccessful. Will order CT. EXAM: CT NECK WO CLINICAL HISTORY: Foreign body sensation throat TECHNIQUE: COMPARISON: CT CT HEAD CERVICAL SPINE WO from 10/08/2018 FINDINGS: CT examination cervical region was performed without contrast administration. Images obtained through the upper pulmonary lobes are unremarkable. There is no superior mediastinal mass. There is no cervical adenopathy. There is deformity of the left posterior and lateral hypopharynx and effacement of the left piriform sinus. Mild asymmetry is also noted at the level of the true and false vocal cords. The epiglottis and aryepiglottic folds appear intact. There is suggestion of a masslike finding associated with the effacement of the hypopharynx and left piriform sinus, measuring roughly 1.5-2 cm in diameter. This is poorly defined on this noncontrast scan. Differential diagnosis would include neoplasm or abscess, perhaps due to foreign body given the patient's clinical history. The salivary glands are unremarkable in appearance. Visualized orbital structures appear intact. Visualized brain is unremarkable. Degenerative changes of the cervical spine noted IMPRESSION: Findings suggesting 1.5-2 cm in diameter mass or abscess, left posterior hypopharynx/ piriformis sinus. Additional evaluation with contrast-enhanced CT or MRI may be considered. ENT consultation recommended with laryngoscopy probably indicated. 1400: Surgery paged. 1500: Spoke with Dr. Littlejohn regarding patient she will plan to take patient to the OR for an endoscopy to remove foreign body. Patient informed of plan of care, verbalizes understanding. Instructed n.p.o. verbalized understanding. HPI General Mode of arrival: EMS. Date/Time Provider Initiated Documentation: 11/24/19 11:35. Limitations to Documentation: no limitations. Information obtained by: patient. HPI Narrative: 79-year-old male presents to the ER with chief complaint of foreign body sensation in throat. He states that he had some beef stew last night in approximately 2 to 3 hours after eating he felt like there was something stuck in his throat. He states that he is able to swallow his secretions at this time, he reports trying to drink liquids to dislodge foreign body and trying to self-induced vomiting which did not help. He has not eaten anything today. He is maintaining his secretions well at this time and is speaking in full sentences. He denies having an episode of this before. He does have a history of esophageal varices which he states he has been scoped for approximately 6 months ago and he was told that they were gone. Other past medical history includes insulin-dependent diabetes, Parkinson's, heart murmur, prostate cancer, hypertension. Related Data Home Medications Medication Instructions Recorded Confirmed carvedilol 3.125 mg PO BID 05/30/13 11/24/19 tramadol 50 mg tablet 25 mg PO DAILY tab 01/26/19 11/24/19 ondansetron HCl [Zofran] 4 mg PO Q8H PRN #10 tab 03/05/19 11/24/19 carbidopa ER 25 mg-levodopa 100 mg 2 tab PO QID #240 tab 07/27/19 11/24/19 tablet,extended release melatonin 5 mg tablet 10 mg PO HS PRN 07/27/19 11/24/19 famotidine [Pepcid] 40 mg PO DAILY #30 tab 11/24/19 Previous Rx's Medication Instructions Recorded ondansetron HCl [Zofran] 4 mg PO Q8H PRN #10 tab 03/05/19 carbidopa ER 25 mg-levodopa 100 mg 2 tab PO QID #240 tab 07/27/19 tablet,extended release famotidine [Pepcid] 40 mg PO DAILY #30 tab 11/24/19 Allergies Allergy/AdvReac Type Severity Reaction Status Date / Time leuprolide acetate Allergy Severe Swelling/Ed Verified 11/24/19 11:33 [From Lupron] isabelle adhesive Allergy Intermediate Skin Rash Verified 11/24/19 11:33 enalapril [Enalapril] AdvReac Severe Hyperkalemi Verified 11/24/19 11:33 a aspirin AdvReac Intermediate Verified 11/24/19 11:33 esomeprazole magnesium AdvReac Intermediate Diarrhea Verified 11/24/19 11:33 [From Nexium] metformin AdvReac Intermediate Diarrhea Verified 11/24/19 11:33 acetaminophen AdvReac Mild Diarrhea Verified 11/24/19 11:33 General Stated Complaint: ThroatFB SHEKHAR: 3 Review of Systems Narrative: Constitutional: Negative for weight loss, alert and oriented, well groomed, normal body habitus, appears comfortable. HEENT: Denies trauma, headaches, blurry vision, nasal discharge, positive foreign body discomfort sensation in throat. Chest: Denies chest pain, palpitations, irregular rhythm, hypertension. Respiratory: Denies Shortness of breath, cough, hemoptysis. GI: Denies abdominal pain, nausea, vomiting, diarrhea, constipation. : Denies dysuria, hematuria, flank pain, rectal bleeding. Neuro: Denies dizziness, blurry vision, weakness, syncope, headache or facial numbness. Hematologic: Denies easy bruising, intolerance to heat or cold, hair loss. [facility] Medical History (Updated 11/24/19 @ 16:38 by Faustina Littlejohn DO) Anxiety Cirrhosis of liver On beta blockers; Under care of Dr. Joe. Colon cancer Multiple polypectomies. 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 Liver cirrhosis MGUS (monoclonal gammopathy of unknown significance) Mild cognitive impairment (08/17/15) HANS (obstructive sleep apnea) Pancytopenia Thought to be secondary to liver cirrhosis and splenic sequestratioin. Please note bone marrow biopsy was negative. Parkinson disease Perirectal abscess Prostate cancer (05/24/02) S/P radiation, Lupron, now on Zoladex. 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 no bleeding. no pain. cont care. 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) Ventral hernia Visual hallucination Surgical History BONE MARROW BIOPSY (11/25/14) HellenROSALIOJULIANO Colectomy 1993 colonoscopy (11/21/15) H/O ventral hernia repair History of bowel resection History of Leonid fundoplication S/P cholecystectomy S/P ear surgery Family History Maternal Cousin Colon cancer Maternal Cousin Colon cancer Mother Cervical cancer Social History Smoking/Tobacco Use Status: Former Tobacco Use Quit Date: 06/17/94 Pack-years: 35 Second Hand Exposure: No Alcohol Intake: current Alcohol Intake frequency: holidays/special occasions only Alcohol type: beer Drug use: Never Substance use type: does not use Household members: none Housing: apartment current occupation: Retired Seatbelt use: always Do you feel safe at home: Yes Do you feel safe in your relationship?: Yes Exam Narrative Exam Narrative: Constitutional: Alert and oriented x3. Appears stated age. Normal body habitus. Head: Normocephalic, no trauma. Eyes: Pupils PERRLA, Red reflex noted, EOM's intact. Eyelids symmetrical without lesions, discharge, or swelling. ENT: Bilateral TM's WNL, External ear normal to inspection, no mastoid TTP, swelling, or erythema, Nasal turbinates WNL, no nasal discharge. Normal dentition, Posterior pharynx WNL, no exudate. Chest: RRR, Normal S1, S2, distal pulses intact. Resp: Lungs clear to auscultation bilaterally, no wheezes, rales, or rhonchi. Musculoskeletal: Normal gait, 5/5 strength to all four extremities. Skin: No suspicious rashes or lesions. Capillary refill less than 2 sec. Neurologic: Cranial nerves II-XII intact. Alert and oriented x 3. DTR's intact. Hematologic/Lymphatic: No ecchymosis, no lymphadenopathy. Course Vital Signs Vital signs: Vital Signs Temperature 36.6 C 11/24/19 11:26 Pulse 65 11/24/19 11:26 Respiratory Rate 16 11/24/19 11:26 Blood Pressure 179/81 H 11/24/19 11:26 Pulse Oximetry 100 10/07/20 11:26 Temperature 36.6 C 11/24/19 11:26 Temperature Source Skin 11/24/19 11:26 Pulse 65 11/24/19 11:26 Respiratory Rate 16 11/24/19 11:26 Respiratory Effort Non-Labored 11/24/19 11:31 Respiratory Pattern Normal 11/24/19 11:31 Blood Pressure 179/81 H 11/24/19 11:26 Blood Pressure Position Sitting 11/24/19 11:26 Pulse Oximetry 100 11/24/19 11:26 Oxygen Delivery Method Room Air 11/24/19 11:26 Oxygen Flow Rate 0 11/24/19 11:26
--- NOTE | 2019-11-24 12:30 | DI.CT_ITS ---
EXAM: CT NECK WO CLINICAL HISTORY: Foreign body sensation throat TECHNIQUE: COMPARISON: CT CT HEAD CERVICAL SPINE WO from 10/08/2018 FINDINGS: CT examination cervical region was performed without contrast administration. Images obtained throug h the upper pulmonary lobes are unremarkable. There is no superior mediastinal mass. There is no ce rvical adenopathy. There is deformity of the left posterior and lateral hypopharynx and effacement of the left piriform sinus. Mild asymmetry is also noted at the level of the true and false vocal cords. The epiglottis and aryepiglottic folds appear intact. There is suggestion of a masslike finding associated with the effacement of the hypopharynx and left piriform sinus, measuring roughly 1.5-2 cm in diameter. This is poorly defined on this noncontrast scan. Differential diagnosis would include neoplasm or absces s, perhaps due to foreign body given the patient's clinical history. The salivary glands are unremarkable in appearance. Visualized orbital structures appear intact. Vi sualized brain is unremarkable. Degenerative changes of the cervical spine noted IMPRESSION: Findings suggesting 1.5-2 cm in diameter mass or abscess, left posterior hypopharynx/ piriformis sinu s. Additional evaluation with contrast-enhanced CT or MRI may be considered. ENT consultation recom mended with laryngoscopy probably indicated. RADIATION DOSE DELIVERED: 774.89mGy.cm Total DLP
--- NOTE | 2019-11-24 14:21 | HPE_ITS ---
Date of service: 11/24/19 Time of Service: 14:21 Assessment and Plan Assessment and plan (1) Esophageal foreign body: Status: Acute Assessment and plan: Informed consent is obtained for the procedural ( explained in simple layman's terms that the pt and/or family could understand) explaining risks vs benefits and alternatives to the procedure and consequences if we do not do the procedure and need/rational for the procedure. Risks include but are not limited to: bleeding, infection, perforation of esophagus, stomach, colon, small intestines, bronchus or trachea, or PTX. This would necessitate emergency surgery to repair the damage w/ possible ostomy; and other associated complications w/ the required surgery. Also complications of anesthesia including aspiration, MD/CVA/. Risk for general anesthesia from cardiac standpoint. He will need to be intubated because of foreign body in the possible risk of aspiration. He may require admission to the hospital because of his significant cardiopulmonary co- Comorbidities. He is very poor IV access History of Present Illness Consults Consult date: 11/24/19 Requesting physician: Leeanne Maddox Narrative: Patient is here today from assisted living. He was eating roast beef last night. Since that time he has a feeling of fullness and that he cannot clear his throat. He could not swallow water when he was in the ER. He has a history of GERD and swallowing issues. He is not sure if he is able to swallow his own secretions or not. He has an extensive cardiac history. He also has a history of cirrhosis and liver failure. His last endoscopy his varices were well controlled. He has had to have them banded in the past. He is not vomiting up blood today. He has had no prior surgery on the esophagus. He has not had radiation in the past. He is well known to [facility]. Review of Systems All systems reviewed & are unremarkable except as noted in HPI and below [facility] Medical History Anxiety Cirrhosis of liver On beta blockers; Under care of Dr. Joe. Colon cancer Multiple polypectomies. 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 Liver cirrhosis MGUS (monoclonal gammopathy of unknown significance) Mild cognitive impairment (08/17/15) HANS (obstructive sleep apnea) Pancytopenia Thought to be secondary to liver cirrhosis and splenic sequestratioin. Plea se note bone marrow biopsy was negative. Parkinson disease Perirectal abscess Prostate cancer (05/24/02) S/P radiation, Lupron, now on Zoladex. 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 no bleeding. no pain. cont care. 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) Ventral hernia Visual hallucination Surgical History BONE MARROW BIOPSY (11/25/14) LISSET Colectomy 1993 colonoscopy (11/21/15) H/O ventral hernia repair History of bowel resection History of Leonid fundoplication S/P cholecystectomy S/P ear surgery Family History Maternal Cousin Colon cancer Maternal Cousin Colon cancer Mother Cervical cancer Social History Smoking/Tobacco Use Status: Former Tobacco Use Quit Date: 06/17/94 Pack-years: 37 Second Hand Exposure: No Alcohol Intake: current Alcohol Intake frequency: holidays/special occasions only Alcohol type: beer Drug use: Never Substance use type: does not use Household members: none Housing: apartment current occupation: Retired Seatbelt use: always Do you feel safe at home: Yes Do you feel safe in your relationship?: Yes Meds Home Medications and Allergies Home Medications Medication Instructions Recorded Confirmed Type carvedilol 3.125 mg PO BID 05/30/13 11/24/19 History tramadol 50 mg tablet 25 mg PO DAILY tab 01/26/19 11/24/19 History ondansetron HCl [Zofran] 4 mg PO Q8H PRN #10 tab 03/05/19 11/24/19 Rx carbidopa ER 25 mg-levodopa 100 mg 2 tab PO QID #240 tab 07/27/19 11/24/19 Rx tablet,extended release melatonin 5 mg tablet 10 mg PO HS PRN 07/27/19 11/24/19 History famotidine [Pepcid] 40 mg PO DAILY #30 tab 11/24/19 Rx Allergies Allergy/AdvReac Type Severity Reaction Status Date / Time leuprolide acetate Allergy Severe Swelling/Ed Verified 11/24/19 11:33 [From Lupron] isabelle adhesive Allergy Intermediate Skin Rash Verified 11/24/19 11:33 enalapril [Enalapril] AdvReac Severe Hyperkalemi Verified 11/24/19 11:33 a aspirin AdvReac Intermediate Verified 11/24/19 11:33 esomeprazole magnesium AdvReac Intermediate Diarrhea Verified 11/24/19 11:33 [From Nexium] metformin AdvReac Intermediate Diarrhea Verified 11/24/19 11:33 acetaminophen AdvReac Mild Diarrhea Verified 11/24/19 11:33 Exam Const General: cooperative, healthy appearing, comfortable, no acute distress, well developed and well groomed Nutritional Appearance: average body habitus and well nourished Orientation: alert, awake and oriented x3 HENMT Head: normal to inspection, normocephalic and atraumatic Ears: hearing grossly normal bilaterally and external ears normal General nose exam: external nose normal Face and sinus: normal facial exam and sinuses nontender Mouth: oral mucosae normal, lip normal, tongue normal and moist mucous membranes Teeth and gingiva: dentition normal Eyes General: appearance normal, both eyes and all related structures Conjunctivae: conjunctivae normal Sclera: sclerae normal Pupils: PERRL Neck Neck: normal visual inspection and full ROM Chest Chest: normal inspection of the chest Resp Effort & Inspection: normal respiratory effort, able to speak in complete sentences, no cough, no nasal flaring, not tachypneic and no use of accessory muscles Auscultation: clear to auscultation bilaterally, no rales, no rhonchi and no wheezes Cardio Jugular venous pressure: no JVD Rate: regular rate Rhythm: regular rhythm GI Inspection: normal to inspection, no edema and non-distended Palpation: soft, no masses, nontender and No ascites Auscultation: normal bowel sounds Skin General skin exam: no rashes or lesions noted Trauma: no lacerations or abrasions Neuro General: patient alert, patient oriented x3, oriented, moves all extremities and CN's II-XI intact bilaterally Cognition: normal cognition Speech: speech normal and expressive aphasia Extrem General: normal to inspection, full ROM and no clubbing, cyanosis or edema Other: pt is non ambulatory. pt has tremor from parkison's Psych Appearance: grossly normal and well kempt Mental Status: mental status grossly normal Speech and Movement: speech and movement normal Affect: normal affect Results Labs Result diagrams: 11/24/19 14:26 11/24/19 14:26 Last Vital Signs Temp 36.6 C 11/24/19 11:26 Pulse 65 11/24/19 11:26 Resp 16 11/24/19 11:26 BP 179/81 H 11/24/19 11:26 Pulse Ox 96 11/24/19 13:02 COVID-19 Screening Have you,or household,traveled outside [place] in last 14 days?: No Had IN PERSON contact w/suspected or confirmed C-19 person: No
[2019-11-24 14:34] LABS: Abs Immature Grans 0.01 10^3/uL (0.0-0.06); Absolute Basophil Count 0.01 10^3/uL (0.0-0.2); Absolute Eosinophil Count 0.06 10^3/uL (0.0-0.7); Absolute Lymphocyte Count 0.26 10^3/uL (1.2-3.4); Absolute Monocyte Count 0.23 10^3/uL (0.1-0.8); Absolute Neutrophil Count 1.66 10^3/uL (1.2-6.7); Basophils % 0.4; Eosinophils % 2.7; HCT 28.5 % (40.0-50.0); HGB 9.5 g/dL (13.5-17.5); Immature Grans % 0.4; Lymphocytes % 11.7; MCH 30.3 pg (27.0-33.0); MCHC 33.3 % (32.0-36.0); MCV 90.8 fL (80-95); MPV 12.5 fL (8.0-11.0); Monocytes % 10.3; Neutrophils % 74.5; Nucleated RBC 0 %; RBC 3.14 10^6/uL (4.36-5.78); RDW 15.8 % (11.8-14.1); RDW-SD 51.5 fL; WBC 2.23 10^3/uL (4.4-10.8)
[2019-11-24 14:44] LABS: Diff Comment PLT Morph Reviewed; Platelet Count 38 10^3/uL (130-400)
[2019-11-24 14:45] LABS: Anisocytosis 1+
[2019-11-24 14:51] LABS: ALT 20 U/L (16-63); AST 40 U/L (15-37); Albumin 2.7 g/dL (3.4-5.0); Alkaline Phosphatase 126 U/L (46-116); Anion Gap 4.4 mmol/L (3-11); BUN 10 mg/dL (7-18); Bilirubin, Total 2.8 mg/dL (0.2-1.0); CO2 28.6 mmol/L (21.0-32.0); CREATININE 0.96 mg/dL (0.70-1.30); Calcium 8.2 mg/dL (8.5-10.1); Chloride 107 mmol/L (98-107); Glucose 124 mg/dL (74-106); Potassium 4.2 mmol/L (3.5-5.1); Sodium 140 mmol/L (136-145)
[2019-11-24] MEDS: Lactated Ringers 1,000 ML 30 ML IV (15:38)
--- NOTE | 2019-11-24 15:50 | STOM_PTH ---
PATIENT: KAUR LORENZANA LOC: U U#:[id number] AGE/SX: 79/M ROOM: RE11/24/[address]: Faustina Littlejohn : 1940 BED: DIS: 11/24/2019 SPEC #: [id number] RECD: 11/24/19 17:50 STATUS: NGHIA REQ #: [id number] JEFFREY: 11/24/19 15:[address]: Faustina Littlejohn DEPT: Surgical Specimen RECD BY: Tanvi Bunch ENTERED: 11/24/19 17:52 SP TYPE: STOMACH OTHR DR: Joanne Riggins Tissues: 1 - BIOPSY BOWEL 2 - STOMACH BIOPSY 3 - STOMACH BIOPSY 4 - ESOPHAGUS BIOPSY Procedures: GROSS AND MICRO LEVEL 4 Comments: [id number]
--- NOTE | 2019-11-24 16:29 | ENDO_ITS ---
Date of service: 11/24/19 Time of Service: 16:29 Endoscopy Report DATE OF PROCEDURE: 11/24/19 PRE-OP DIAGNOSIS: esophageal foreign body POST-OP DIAGNOSIS: other (upper esophageal ulcer/hiatal hernia/esophagitis ) PROCEDURE: EGD + Bx SURGEON: Faustina Littlejohn ANESTHESIA: GETA ESTIMATED BLOOD LOSS: 1 PATHOLOGY: other DISPOSITION: no change PROCEDURE DESCRIPTION: After informed consent was obtained the patient was take to the procedure room and placed in a supine position. Monitors were applied and a time out was done. The patients name, date of , procedure type, allergies to medications and metal in their body was reviewed. A bite block was placed and the patient was sedated. Once sedated and comfortable the gastroscope was advanced through the oropharynx which was grossly normal into the esophagus. The proximal esophagus does show an ulcer. There is not any foreign body visible at the time of the scope. But from the appearance of his esophagus, I feel there was something in there and it passed when he was given the paralytic for GETA. He has a moderate sized hiatal hernia. In the distal esophagus there was esophagitis- mild. THere are no varcies. THere is no stricture. He does have a very tortuous esophagus and probably some presbyesophagus The scope was advanced into the stomach and through the pylorus into the 3rd portion of the duodenum. The duodenum was noted to be nl. Biopsies were done all specimen is retrieved and no bleeding is noted. The scope was retracted back into the stomach and biopsies were done to rule out H. pylori. There were no gastric ulcers. The scope was retroflexed. The cardia and fundus were noted to be normal. There is a moderate sized hiatal hernia noted. The scope was retracted back into the esophagus and biopsies were done of the GE junction to rule out Huynh's. The Z line was irregular. There is esophagitis noted at the GE junction. Biopsies were taken. There were no varices visualized today. The scope was removed and the patient was woken up and taken back to [facility] in stable condition.
--- NOTE | 2019-11-24 16:37 | W.PM.DSUDISC ---
Discharge Plan Disposition Patient Disposition: HOME Condition: Good Discharge Details Reason For Visit: stomach scope Attending Provider: Faustina Littlejohn Primary Care Provider: Joanne Riggins Home Meds and New Rx's Prescriptions: New famotidine [Pepcid] 40 mg tablet 40 mg PO DAILY Qty: 30 RF: 12 Continued tramadol 50 mg tablet 25 mg PO DAILY RF: 0 carbidopa-levodopa 25-100 mg tablet extended release 2 tab PO QID Qty: 240 RF: 11 melatonin 5 mg tablet 10 mg PO HS PRNRF: 0 carvedilol 3.125 MG tablet 3.125 mg PO BID RF: 0 ondansetron HCl [Zofran] 4 mg tablet 4 mg PO Q8H PRN (Reason: nausea and vomiting) Qty: 10 RF: 0 Discharge Instructions Additional Instructions: Findings:upper esopheal ulcer / esophagitis/hiatal hernia. no varices visible today clear liquids x 24 hrs. than transition to a soft diet. My have sore throat for 48hrs. Gargle w/ salt water as needed for sore throat. Follow up: as needed Please call if you develop: fevers >101.5 Nausea or Vomiting Abdominal pain that is not transient DAY SURGERY UNIT POST COLONOSCOPY INSTRUCTIONS 1. Because there will be medication in your system for the next 24 hours, you may feel a little sleepy. Your coordination will be affected. Therefore: a. Do not drive or operate dangerous equipment for 24 hours. b. Do not drink alcohol beverages for 24 hours (not even beer). c. Plan to go home and rest for the day. 2. Generally there are no restrictions on your activity after a day or so has gone by, but you may feel a bit fatigued for a few days. 3 After you arrive home you may have a light meal and return to a normal diet as you can tolerate it without feeling sick to your stomach. 4. After surgery, you may feel pain or discomfort. This should be only transient, but if it persists please contact your doctor. 5. If there are any questions regarding the findings of your procedure, please feel free to contact your doctor. 6. If you are unable to contact your doctor with a problem, contact the hospital at [phone]. 7. Continue all your regular medications unless directed otherwise. I understand the above instructions and have no questions. Signature of Patient or Responsible Adult Escort Date/Time Name of Responsible Adult Escort Signature of Nurse Date/Time Activity:: Activity as Tolerated Diet:: clear liquids x 24 hrs Discharge Orders Discharge Orders: Discharge Order (Routine); Ordered 11/24/19 Ordered By: Faustina Littlejohn DS: Diagnosis Discharge Diagnosis (1) Esophageal foreign body: Status: Acute (2) Hiatal hernia with GERD: Status: Acute (3) Hiatal hernia with gastroesophageal reflux disease and esophagitis: Status: Acute (4) Esophagitis: Status: Acute (5) Esophageal ulcer: Status: Acute
[2019-11-24] MEDS: FAMOTIDINE 20 MG/50 ML BAG 200 MG (16:53)
[2019-11-24] MEDS: Normal Saline Flush 10 ML SYR IVP (16:54)
[2019-11-25 01:02] LABS: COVID-19 RT-PCR UVMMC Result Negative (Negative)
== END 2019-11-24 17:33 | disposition home or self-care (01) ==
LOC: ER 14:43 → DSU 15:32
PROVIDERS: Emergency Provider Registered Nurse Emergency; PCP Nurse Practitioner Family; Visit Provider Surgery
PROC: 0DC68ZZ Extirpation of Matter from Stomach, Via Natural or Artificial Opening Endoscopic (ICD-10-PCS; CPT 43247; principal; 2019-11-24 15:15)
DX: T18.108A Unspecified foreign body in esophagus causing other injury, initial encounter (principal); K22.10 Ulcer of esophagus without bleeding; K44.9 Diaphragmatic hernia without obstruction or gangrene; K20.90 Esophagitis, unspecified without bleeding; Z11.59 Encounter for screening for other viral diseases
CPT/HCPCS: 43239; 36415; 80053; 88305; 99221; 99285; U0003; 70490; 85025; 99284

== ENCOUNTER 2019-11-26 04:06 | Outpatient (CLI) | payer OTHER, SELFPAY ==
--- NOTE | 2019-11-26 07:16 | DI.US_ITS ---
EXAM: US RENAL CLINICAL HISTORY: r/o hydronephrosis after ureteroscopy,CALCULUS PROXIMAL RT URETER,N20.1 TECHNIQUE: Ultrasound performed using standard protocol. COMPARISON: US US hernia from 04/30/[address] CHEST/ABD/PEL W from 01/27/[address] ABDOMEN PELVIS WO from 10/27/2019 FINDINGS: Renal ultrasound was performed according to the usual protocol. Note is made of nodular contour live r consistent with cirrhosis and there is moderate ascites. A right lobe hepatic mass is identified m easuring 55 x 41 x 57 millimeters, prior CT of January 2019 showed this mass to be about 38 millimet ers in greatest diameter, the findings are suspicious for neoplasm. There is a right renal parapelvic cyst. There is no right or left hydronephrosis. There is a possib le left renal calculus measuring about 3 millimeters in diameter in the inferior pole. Urinary bladder is essentially empty. IMPRESSION: No evidence of hydronephrosis. Interval growth of right lobe hepatic lesion in a patient with cirrhosis, neoplastic disease should b e considered. DATA REPOSITORY:
== END 2019-11-26 04:26 ==
PROVIDERS: PCP Nurse Practitioner Family; Visit Provider Urology
DX: K74.60 Unspecified cirrhosis of liver; K76.89 Other specified diseases of liver; N20.2 Calculus of kidney with calculus of ureter; E11.9 Type 2 diabetes mellitus without complications; I10 Essential (primary) hypertension; Z79.84 Long term (current) use of oral hypoglycemic drugs
CPT/HCPCS: 76770; 99213

== ENCOUNTER 2019-12-10 05:56 | Outpatient (RCR) | payer OTHER, SELFPAY ==
[2019-12-10 07:37] LABS: Abs Immature Grans 0.01 10^3/uL (0.0-0.06); Absolute Basophil Count 0.01 10^3/uL (0.0-0.2); Absolute Eosinophil Count 0.16 10^3/uL (0.0-0.7); Absolute Lymphocyte Count 0.25 10^3/uL (1.2-3.4); Absolute Monocyte Count 0.25 10^3/uL (0.1-0.8); Basophils % 0.4; HCT 32.9 % (40.0-50.0); HGB 10.7 g/dL (13.5-17.5); Immature Grans % 0.4; MCH 29.8 pg (27.0-33.0); MCHC 32.5 % (32.0-36.0); MCV 91.6 fL (80-95); MPV 12.5 fL (8.0-11.0); Neutrophils % 70.2; Nucleated RBC 0 %; RBC 3.59 10^6/uL (4.36-5.78); RDW 15.1 % (11.8-14.1); RDW-SD 50.9 fL; WBC 2.28 10^3/uL (4.4-10.8)
[2019-12-10 07:55] LABS: Diff Comment PLT Morph Reviewed; Platelet Count 48 10^3/uL (130-400); Poikilocytes 1+
[2019-12-10 08:05] LABS: ALT 13 U/L (16-63); AST 40 U/L (15-37); Alkaline Phosphatase 153 U/L (46-116); Anion Gap 6.2 mmol/L (3-11); BUN 13 mg/dL (7-18); Bilirubin, Total 1.9 mg/dL (0.2-1.0); CO2 23.8 mmol/L (21.0-32.0); CREATININE 0.82 mg/dL (0.70-1.30); Chloride 106 mmol/L (98-107); Ferritin 68 ng/mL (26-388); Glucose 123 mg/dL (74-106); Potassium 3.9 mmol/L (3.5-5.1); Sodium 136 mmol/L (136-145); Total Protein 6.8 g/dL (6.4-8.2)
[2019-12-13 14:03] LABS: PSA, Ultrasensitive 37.7 ng/mL (<= 6.5)
[2019-12-15 09:09] LABS: AFP Tumor Marker 5.8 ng/mL (<8.1)
[2019-12-15 15:18] LABS: Testosterone, Total 25 ng/dL (240-950)
== END 2019-12-18 23:59 | disposition home or self-care (01) ==
LOC: INF 05:56
PROVIDERS: PCP Nurse Practitioner Family; Visit Provider Internal Medicine
DX: C61 Malignant neoplasm of prostate (principal); D50.0 Iron deficiency anemia secondary to blood loss (chronic); D47.2 Monoclonal gammopathy
CPT/HCPCS: 36415; 80053; 84153; 84403; 82105; 82728; 85025

== ENCOUNTER 2019-12-28 01:10 | Outpatient (CLI) | payer OTHER, SELFPAY ==
[2019-12-28] MEDS: Gadoterate meglumine 20 ML VIAL IVP (10:12)
--- NOTE | 2019-12-28 10:25 | DI.MRI_ITS ---
EXAM: MR ABDOMEN WO/W CLINICAL HISTORY: RT LOBE LIVER MASS,R16.0,CIRRHOSIS,? HCC,H/O COLON AND PROSTATE CA TECHNIQUE: Multiplanar multisequence MRA of the Abdomen was performed. CONTRAST MATERIAL: IV Contrast: 20 mL of Dotarem contrast administered. COMPARISON: MR MRI ABDOMEN WO,W from 08/20/[address] CHEST/ABD/PEL W from 01/27/[address] CHEST/ABD/PEL W from 01/27/[address] ABDOMEN PELVIS WO from 10/27/[address] ABDOMEN PELVIS WO from 10/27/2019 US US RENAL from 11/26/2019 FINDINGS: Liver: The liver has a nodular appearance consistent with hepatic cirrhosis. There is a 1.8 x 1.1 cm simple cyst in the anterior aspect of the right lobe of the liver. (4001 image 22). There is a 4.6 transverse by 5.5 craniocaudad cm mass in the caudal aspect of the right lobe of the liver. It is i soechoic on the T1 weighted images and slightly hyperechoic on the T2 weighted images. It is slightl y hypointense to the remainder of the liver with a hyperintense rim on the postcontrast images. A 2n d similarly enhancing lesion is seen adjacent to the cyst in the anterior aspect of the right lobe of the liver. It measures 2.1 x 2.1 cm. (72943 image 44). Pancreas: Unremarkable. Gallbladderand Bile Ducts: Status post cholecystectomy. No biliary ductal dilatation. Adrenals: Unremarkable. Kidneys: Bilateral renal cysts. The largest is in the right kidney and measures 4.2 x 3.1 cm. Spleen: The spleen measures 19.1 cm. Left upper quadrant varices are noted. Aorta: Unremarkable. Soft Tissues: Left paracentral upper abdominal wall fat containing hernia. Status post anterior abdo libby wall surgery. Bone: Unremarkable. Bowel: Small hiatal hernia. Lymph Nodes: Unremarkable. Peritoneal cavity: Moderately large ascites. IMPRESSION: 1. Findings of hepatic cirrhosis with splenomegaly, abdominal varices and ascites. 2. Two hepatic masses in the caudal aspect of the right lobe of the liver. The larger measures 4.6 x 5.5 cm. The smaller measures 2.1 cm round. Primary diagnostic concern is a hepatocellular carcinoma o r metastatic disease. 3. Incidental findings in the abdomen as described above. DATA REPOSITORY:
== END 2019-12-28 01:30 ==
PROVIDERS: PCP Nurse Practitioner Family; Visit Provider Internal Medicine
DX: K74.60 Unspecified cirrhosis of liver (principal); R16.1 Splenomegaly, not elsewhere classified; R18.8 Other ascites; R16.0 Hepatomegaly, not elsewhere classified
CPT/HCPCS: 74183

== ENCOUNTER → 2020-01-03 08:14 | Outpatient (BNVA) | payer OTHER, SELFPAY | PROVIDERS: PCP Nurse Practitioner Family; Referring Provider Nurse Practitioner Family; Visit Provider Psychiatry & Neurology Neurology | DX: G20 Parkinson's disease (principal); G25.81 Restless legs syndrome; R29.6 Repeated falls; R26.81 Unsteadiness on feet | CPT/HCPCS: 99213; 99442 ==

== ENCOUNTER 2020-01-14 05:13 | Outpatient (RCR) | payer OTHER, SELFPAY | END 2020-01-17 23:59 | disposition home or self-care (01) | LOC: INF 05:13 | PROVIDERS: PCP Nurse Practitioner Family; Visit Provider Internal Medicine ==

== ENCOUNTER 2020-01-17 11:50 | Outpatient (CLI) | payer OTHER, SELFPAY ==
--- NOTE | 2020-01-17 09:15 | DI.RAD_ITS ---
EXAM: XR TIB/FIB RT CLINICAL HISTORY: right singh pain after fall. TECHNIQUE: 2D digital imaging was performed. COMPARISON: No exams were available for comparison FINDINGS: There is no evidence of acute fracture. No radiopaque foreign body. No osseous lesions. Osteopenia evident. IMPRESSION: No fracture evident in the tibia and fibula. DATA REPOSITORY: RADIATION DOSE DELIVERED:
== END 2020-01-17 12:10 ==
PROVIDERS: PCP Nurse Practitioner Family; Referring Provider Nurse Practitioner Family; Visit Provider Student in an Organized Health Care Education/Training Program
DX: M79.604 Pain in right leg (principal); S80.11XA Contusion of right lower leg, initial encounter; W05.0XXA Fall from non-moving wheelchair, initial encounter; G20 Parkinson's disease; Z99.3 Dependence on wheelchair
CPT/HCPCS: 99203; 99214; 73590

== ENCOUNTER 2020-01-21 05:01 | Outpatient (RCR) | payer OTHER, SELFPAY ==
[2020-01-21 07:31] LABS: Abs Immature Grans 0.01 10^3/uL (0.0-0.06); Absolute Basophil Count 0.02 10^3/uL (0.0-0.2); Absolute Eosinophil Count 0.16 10^3/uL (0.0-0.7); Absolute Lymphocyte Count 0.27 10^3/uL (1.2-3.4); Absolute Monocyte Count 0.25 10^3/uL (0.1-0.8); Absolute Neutrophil Count 1.63 10^3/uL (1.2-6.7); Basophils % 0.9; Eosinophils % 6.8; HCT 31.1 % (40.0-50.0); HGB 10.2 g/dL (13.5-17.5); Immature Grans % 0.4; Lymphocytes % 11.5; MCH 29.8 pg (27.0-33.0); MCHC 32.8 % (32.0-36.0); MCV 90.9 fL (80-95); MPV 11.7 fL (8.0-11.0); Monocytes % 10.7; Neutrophils % 69.7; Nucleated RBC 0 %; RBC 3.42 10^6/uL (4.36-5.78); RDW 15.3 % (11.8-14.1); RDW-SD 51.3 fL; WBC 2.34 10^3/uL (4.4-10.8)
[2020-01-21 07:48] LABS: ALT 6 U/L (16-63); AST 37 U/L (15-37); Albumin 2.7 g/dL (3.4-5.0); Alkaline Phosphatase 157 U/L (46-116); Anion Gap 2.8 mmol/L (3-11); BUN 11 mg/dL (7-18); Bilirubin, Total 1.8 mg/dL (0.2-1.0); CO2 27.2 mmol/L (21.0-32.0); CREATININE 0.91 mg/dL (0.70-1.30); Calcium 7.7 mg/dL (8.5-10.1); Chloride 105 mmol/L (98-107); Ferritin 57 ng/mL (26-388); Glucose 233 mg/dL (74-106); Potassium 3.5 mmol/L (3.5-5.1); Sodium 135 mmol/L (136-145); Total Protein 6.4 g/dL (6.4-8.2)
[2020-01-21 07:49] LABS: Diff Comment PLT Morph Reviewed; Platelet Count 38 10^3/uL (130-400); Poikilocytes 1+
[2020-01-22 13:15] LABS: PSA, Ultrasensitive 35.5 ng/mL (<= 6.5)
[2020-01-24 10:14] LABS: AFP Tumor Marker 7.7 ng/mL (<8.1)
[2020-01-25 12:17] LABS: Testosterone, Total 20 ng/dL (240-950)
== END 2020-02-17 23:59 | disposition home or self-care (01) ==
LOC: INF 05:01
PROVIDERS: PCP Nurse Practitioner Family; Visit Provider Internal Medicine
DX: C61 Malignant neoplasm of prostate (principal); D50.0 Iron deficiency anemia secondary to blood loss (chronic)
CPT/HCPCS: 36415; 80053; 84153; 84403; 82105; 82728; 85025

== ENCOUNTER 2020-01-23 12:28 | Emergency (ER) | payer OTHER, SELFPAY ==
[2020-01-23 12:30] VITALS: BP 136/62; PULSE 69; RESP 18; TEMP 36.6; O2SAT 98
--- NOTE | 2020-01-23 12:30 | DI.CT_ITS ---
EXAM: CT RENAL COLIC WO CLINICAL HISTORY: left flank pain. TECHNIQUE: Imaging Protocol: Axial computed tomography images with coronal and sagittal reformatted images were created and reviewed CONTRAST MATERIAL: Intravenous: none Oral: None COMPARISON: CT CT ABDOMEN PELVIS WO from 10/27/2019 FINDINGS: VISUALIZED LUNG BASES: No pleural effusion ABDOMEN: Again noted is abundant ascites. LIVER: Liver is again noted to be cirrhotic in appearance. No obvious the discrete focal hepatic les ion. GALLBLADDER/BILIARY: Gallbladder surgically absent. CBD is not dilated. PANCREAS: No evidence of pancreatic mass nor dilatation of the pancreatic duct. SPLEEN: Splenomegaly is again noted. No obvious intrasplenic lesions on this noninfused study. ADRENALS: There are no significant adrenal masses. KIDNEYS: Previously present right ureteral stent has been removed. Parapelvic cyst in the right kidn ey measuring 4.8 by 3.2 centimetres is again noted.. No calculi evident in the right kidney nor in t he right ureter. On the left side the ureter is not dilated. However, the previously present intrar enal calculus is now located in the upper left ureter, this measured approximately 4 x 3 millimeters and there is mild dilatation left collecting system above this level. No remaining calculi evident i n the left kidney. No other calculi seen lower down the left ureter nor in the urinary bladder. Rohan gical clips again noted interposed between the nondistended urinary bladder and the seminal vesicles. . ABDOMINAL AORTA: Abdominal aorta is not enlarged and there is no [id number]-hxbway adenopat hy. ABDOMINAL WALL/GI: There is a left of center anterior abdominal wall hernia again noted which contain s mesenteric vessels and some fluid and a exhibits minimal change from prior study. It does not appe ar to contain bowel loops. There is no bowel obstruction. No free air. Patch that Is also right inguinal hernia which contains fluid. No obvious bowel loop therein. PELVIS: LYMPH NODES: There is no intrapelvic nor inguinal adenopathy. GI: No evidence of appendicitis.No evidence of sigmoid diverticulitis. URINARY BLADDER: No calculi nor obvious masses evident REPRODUCTIVE: Prostate not enlarged. Seminal vesicles unremarkable OSSEOUS: Compression fracture of L3 is again noted, unchanged. IMPRESSION: 1. The previously present intrarenal calculus in the left kidney seen on the prior CT scan of 020 is now evident in the upper left ureter and there is mild dilatation left collecting system above this level. No other calculi seen within the ureter nor within the urinary bladder. Previously pre sent stent is seen in the opposite-right ureter is no longer seen. 2. Abundant ascites again noted and there is again noted a cirrhotic appearing liver +splenomegaly. 3. No pleural effusions. RADIATION DOSE DELIVERED: 1,173.26mGy.cm Total DLP 1,173.26mGy.cm Total DLP DATA REPOSITORY: All CT scans at this facility are submitted to the National Radiology Data Registry (NRDR) Dose Index Registry (DIR) with the [employer] (A[employer]). RADIATION OPTIMIZATION: All CT scans at this facility use at least one of these dose optimization te chniques: automated exposure control; mA and/or kV adjustment per patient size (includes targeted exa ms where dose is matched to clinical indication); or iterative reconstruction.
--- NOTE | 2020-01-23 12:42 | ED.GENADUL_ITS ---
Discharge Plan Disposition Patient Disposition: HOME Condition: Stable Discharge Details Clinical Impression: Calculus of left ureter, Acute flank pain Primary Care Provider: Joanne Riggins ED Provider: Brandon Agrawal Home Meds and New Rx's Prescriptions: New ondansetron 4 mg tablet,disintegrating 4 mg PO Q8H PRN (Reason: nausea and vomiting) Qty: 30 RF: 0 ibuprofen 600 mg tablet 600 mg PO Q6H PRNQty: 30 RF: 0 tamsulosin [Flomax] 0.4 mg capsule 0.4 mg PO DAILY Qty: 14 RF: 0 No Action tramadol 50 mg tablet 25 mg PO DAILY RF: 0 carbidopa-levodopa 25-100 mg tablet extended release 2 tab PO QID Qty: 240 RF: 11 riboflavin (vitamin B2) 100 mg tablet 100 mg PO DAILY Qty: 90 RF: 3 lidocaine HCl [Aspercreme (lidocaine HCl)] 4 % cream 1 applic topical BID PRN (Reason: pain) Qty: 15 RF: 0 diclofenac sodium [Arthritis Pain (diclofenac)] 1 % gel 2 g topical QID Qty: 100 RF: 0 carvedilol 3.125 MG tablet 3.125 mg PO BID RF: 0 ondansetron HCl [Zofran] 4 mg tablet 4 mg PO Q8H PRN (Reason: nausea and vomiting) Qty: 10 RF: 0 Discharge Instructions Instructions: Kidney Stones (ED) Medical Decision Making 79 yo male with hx of kidney stones in the past comes in with acute onset left flank/lower back pain starting an hour ago suddenly. STates it feels similar to his prior kidney stones. Denies vomit but has nausea. Has no abdominal tednerness, no cva tenderness, localizes the pain to the left oblique and lower back. Suspect kidney stone based on acute onset of pain, will obtain labs and renal colic ct and reassess. pt hd stable labs unremarkable awaiting ua, ct confirms 4mm ureter calculus otherwise no acute changes. He feels improved and willing to try outpatient management and f/u with Dr. Garcias with return precations. Will wait for UA results Differential Diagnosis Differential Diagnosis: kidney stone, pyelo, diverticulitis Medical Records Medical records reviewed: Yes I reviewed the patient's medical records. Imaging Data Radiologic Study: Attestation: I personally reviewed and interpreted this imaging study as follows: Imaging: CT Scan Radiologist's impression: IMPRESSION: 1. The previously present intrarenal calculus in the left kidney seen on the prior CT scan of 10/27/2019 is now evident in the upper left ureter and there is mild dilatation left collecting system above this level. No other calculi seen within the ureter nor within the urinary bladder. Previously present stent is seen in the opposite-right ureter is no longer seen. 2. Abundant ascites again noted and there is again noted a cirrhotic appearing liver +splenomegaly. 3. No pleural effusions. Lab Data Lab results reviewed: Yes I reviewed the patient's lab results. HPI General Mode of arrival: EMS . Date/Time Provider Initiated Documentation: 01/23/20 12:36 . Limitations to Documentation: no limitations . Information obtained by: patient . History of Present Illness 79 year old M presents to the emergency department with the chief complaint of left flank pain, described as moderate and severe, Quality is described as stabbing, and is localized to the back. Patient reports no radiation. Patient started experiencing this hour(s) (1) and it has been constant. No relieving factors improve symptom(s), No exacerbating factors reported . Patient did receive the following treatments prior to arrival, none Related Data Home Medications Medication Instructions Recorded Confirmed carvedilol 3.125 mg PO BID 05/30/13 01/17/20 tramadol 50 mg tablet 25 mg PO DAILY tab 01/26/19 01/17/20 ondansetron HCl [Zofran] 4 mg PO Q8H PRN #10 tab 03/05/19 01/17/20 carbidopa ER 25 mg-levodopa 100 mg 2 tab PO QID #240 tab 07/27/19 01/17/20 tablet,extended release riboflavin (vitamin B2) 100 mg 100 mg PO DAILY #90 tab 01/03/20 01/17/20 tablet diclofenac sodium 1 % topical gel 2 g TOPICAL QID #100 g 01/17/20 01/17/20 lidocaine HCl 4 % topical cream 1 applic TOPICAL BID PRN #15 g 01/17/20 01/17/20 ibuprofen 600 mg PO Q6H PRN #30 tab 01/23/20 ondansetron 4 mg PO Q8H PRN #30 tab 01/23/20 tamsulosin [Flomax] 0.4 mg PO DAILY #14 cap 12/06/20 Previous Rx's Medication Instructions Recorded ondansetron HCl [Zofran] 4 mg PO Q8H PRN #10 tab 03/05/19 carbidopa ER 25 mg-levodopa 100 mg 2 tab PO QID #240 tab 07/27/19 tablet,extended release riboflavin (vitamin B2) 100 mg 100 mg PO DAILY #90 tab 01/03/20 tablet diclofenac sodium 1 % topical gel 2 g TOPICAL QID #100 g 01/17/20 lidocaine HCl 4 % topical cream 1 applic TOPICAL BID PRN #15 g 01/17/20 ibuprofen 600 mg PO Q6H PRN #30 tab 01/23/20 ondansetron 4 mg PO Q8H PRN #30 tab 01/23/20 tamsulosin [Flomax] 0.4 mg PO DAILY #14 cap 01/23/20 Allergies Allergy/AdvReac Type Severity Reaction Status Date / Time leuprolide acetate Allergy Severe Swelling/Ed Verified 01/17/20 08:45 [From Lupron] isabelle adhesive Allergy Intermediate Skin Rash Verified 01/17/20 08:45 enalapril [Enalapril] AdvReac Severe Hyperkalemi Verified 01/17/20 08:45 a aspirin AdvReac Intermediate Verified 01/17/20 08:45 esomeprazole magnesium AdvReac Intermediate Diarrhea Verified 01/17/20 08:45 [From Nexium] metformin AdvReac Intermediate Diarrhea Verified 01/17/20 08:45 acetaminophen AdvReac Mild Diarrhea Verified 01/17/20 08:45 General Stated Complaint: Abd Prob SHEKHAR: 4 Review of Systems All systems reviewed & are unremarkable except as noted in HPI and below Constitutional Constitutional: Denies chills, Denies fever(s) and Denies weakness Cardiovascular Cardiovascular: Denies chest pain and Denies dyspnea Respiratory Respiratory: Denies cough and Denies dyspnea Gastrointestinal Gastrointestinal: Denies abdominal pain and Denies vomiting Musculoskeletal Musculoskeletal: Denies joint swelling Neurologic Neurologic: Denies weakness Psychiatric Psychiatric: Denies depression [facility] Medical History Anxiety Cirrhosis of liver On beta blockers; Under care of Dr. Joe. Colon cancer Multiple polypectomies. 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 Kidney stones, calcium oxalate monohydrate Liver cirrhosis MGUS (monoclonal gammopathy of unknown significance) Mild cognitive impairment (08/17/15) HANS (obstructive sleep apnea) Pancytopenia Thought to be secondary to liver cirrhosis and splenic sequestratioin. Please note bone marrow biopsy was negative. Parkinson disease Perirectal abscess Prostate cancer (05/24/02) S/P radiation, Lupron, now on Zoladex. 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 no bleeding. no pain. cont care. 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) Ventral hernia Visual hallucination Surgical History BONE MARROW BIOPSY (11/25/14) LISSET Colectomy 1992 colonoscopy (11/21/15) H/O ventral hernia repair History of bowel resection History of Leonid fundoplication S/P cholecystectomy S/P ear surgery Family History Maternal Cousin Colon cancer Maternal Cousin Colon cancer Mother Cervical cancer Social History Smoking/Tobacco Use Status: Former Tobacco Use Second Hand Exposure: No Smoking risk assessment performed?: Yes Alcohol Intake: current Alcohol Intake frequency: holidays/special occasions only Alcohol type: beer Drug use: Never Substance use type: does not use Household members: none Housing: apartment current occupation: Retired Seatbelt use: always Do you feel safe at home: Yes Do you feel safe in your relationship?: Yes Exam Const General: no acute distress Orientation: alert HENMT Head: normal to inspection Ears: external ears normal General nose exam: external nose normal Mouth: moist mucous membranes Eyes General: appearance normal, both eyes and all related structures Neck Neck: normal visual inspection Resp Effort & Inspection: normal respiratory effort and able to speak in complete sentences Cardio Rate: regular rate GI Palpation: soft and nontender Back/Spine/Pelvis Back: no CVA tenderness Skin General skin exam: no rashes or lesions noted Neuro General: patient alert and patient oriented x3 Extrem General: normal to inspection Psych Mental Status: mental status grossly normal Course Vital Signs Vital signs: Vital Signs Temperature 36.6 C 01/23/20 12:30 Pulse 69 01/23/20 12:30 Respiratory Rate 18 01/23/20 12:30 Blood Pressure 136/62 01/23/20 12:30 Pulse Oximetry 98 01/23/20 12:30 Temperature 36.6 C 01/23/20 12:30 Temperature Source Temporal Artery Scan 01/23/20 12:30 Pulse 69 01/23/20 12:30 Respiratory Rate 18 01/23/20 12:30 Respiratory Effort Non-Labored 01/23/20 12:36 Blood Pressure 136/62 01/23/20 12:30 Blood Pressure Position Supine 01/23/20 12:30 Pulse Oximetry 98 01/23/20 12:30 Oxygen Delivery Method Room Air 01/23/20 12:30 Oxygen Flow Rate 0 01/23/20 12:30 Pain Level 9 01/23/20 12:30
[2020-01-23 12:55] LABS: Abs Immature Grans 0.01 10^3/uL (0.0-0.06); Absolute Basophil Count 0.02 10^3/uL (0.0-0.2); Absolute Eosinophil Count 0.12 10^3/uL (0.0-0.7); Absolute Lymphocyte Count 0.22 10^3/uL (1.2-3.4); Absolute Monocyte Count 0.26 10^3/uL (0.1-0.8); Absolute Neutrophil Count 1.64 10^3/uL (1.2-6.7); Basophils % 0.9; Eosinophils % 5.3; HCT 29.2 % (40.0-50.0); HGB 9.5 g/dL (13.5-17.5); Immature Grans % 0.4; Lymphocytes % 9.7; MCH 29.8 pg (27.0-33.0); MCHC 32.5 % (32.0-36.0); MCV 91.5 fL (80-95); MPV 12.1 fL (8.0-11.0); Monocytes % 11.5; Neutrophils % 72.2; Nucleated RBC 0 %; RBC 3.19 10^6/uL (4.36-5.78); RDW 15.4 % (11.8-14.1); RDW-SD 51.7 fL; WBC 2.27 10^3/uL (4.4-10.8)
[2020-01-23] MEDS: Ketorolac 15 MG/ML VIAL IVP (12:59)
[2020-01-23] MEDS: Normal Saline 1,000 ML 1000 ML IV (12:59)
[2020-01-23] MEDS: Ondansetron 4 MG/2 ML VIAL IVP (13:00)
[2020-01-23 13:08] LABS: Anisocytosis 1+; Diff Comment PLT Morph Reviewed; INR 1.4 (0.9-1.1); Ovalocytes 2+; PTT Activated 30.3 sec (21.0-27.5); Platelet Count 44 10^3/uL (130-400); Prothrombin Time 13.9 sec (9.3-11.0)
[2020-01-23 13:09] LABS: Bilirubin, Direct 0.58 mg/dL (0.00-0.20); Bilirubin, Total 1.8 mg/dL (0.2-1.0); Lipase 130 U/L (73-393); Magnesium 1.7 mg/dL (1.8-2.4)
[2020-01-23 14:12] LABS: Bilirubin Small (Negative); Blood Large (Negative); Clarity Cloudy (Clear); Glucose 100 mg/dL (Negative); Ketones Trace mg/dL (Negative); Leukocyte Esterase Negative (Negative); Nitrite Negative (Negative); Specific Gravity >= 1.030 (1.005-1.025); Urobilinogen 0.2 EU/dL (Up TO 0.2)
[2020-01-23 14:21] LABS: Crystals Negative HPF (Negative); Epithelial Cells Few HPF (Negative); Mucus Trace (Negative); RBC >50 HPF (0-2)
[2020-01-23 14:22] LABS: C & S Indicated? Yes
--- NOTE | 2020-01-23 14:25 | NUR.NOTE ---
[facility]
[2020-01-23] MEDS: Ibuprofen 600 MG TAB, 6 TABS/BTL PO (14:34)
[2020-01-23 14:35] VITALS: BP 155/68; PULSE 64; RESP 16; TEMP 36.6; O2SAT 96
[2020-01-23] MEDS: Ondansetron O.D.T. 4 MG TABEF, 3 TABS/BTL PO (14:35)
[2020-01-23] MEDS: oxyCODONE 5 MG TAB PO (14:36)
[2020-01-23] MEDS: Tamsulosin 0.4 MG CAPCR PO (14:38)
--- NOTE | 2020-01-23 15:25 | NUR.NOTE ---
Prescriptions faxed to [facility] for med delivery friday01/24/2020. Confirmed faxes recieved with [facility].Nursing Note:
--- NOTE | 2020-01-24 15:50 | NUR.NOTE ---
1552---Mr Ren called stating he was diagnosed with a kidney stone in ER yesturday. He stated when he call Urology office he was given an appt Feb 02 with a [employer]. He stated the office told him that he told the ER MD that he wanted to pass the stone by himself. He stated that was nonsense and he wanted help to pass it. I asked about his pain and he stated he had medication for that. Told him that he could come back to ER at anytime. He stated that it was a bother to get RCT to get him back home. Offered to get a CM to help him with transportation issues. He stated he was planning on calling his pcp at [facility]. Again offered to recheck him in ER at any time. Nursing Note:
== END 2020-01-23 15:20 | disposition home or self-care (01) ==
PROVIDERS: Emergency Provider Emergency Medicine; PCP Nurse Practitioner Family
DX: N20.1 Calculus of ureter (principal); R10.12 Left upper quadrant pain; M54.5 Low back pain; Z87.442 Personal history of urinary calculi; G20 Parkinson's disease; E11.9 Type 2 diabetes mellitus without complications; I10 Essential (primary) hypertension
CPT/HCPCS: 83690; 96361; 96374; 96375; 99284; 74176; 81003; 81015; 82247; 82248; 83735; 85025; 85610; 85730; 87086; J1885; J2405

== ENCOUNTER → 2020-01-26 13:03 | Outpatient (BNVA) | payer OTHER, SELFPAY | PROVIDERS: PCP Nurse Practitioner Family; Referring Provider Nurse Practitioner Family; Visit Provider Nurse Practitioner Gerontology | DX: N20.1 Calculus of ureter (principal); Z11.59 Encounter for screening for other viral diseases | CPT/HCPCS: 99213 ==

== ENCOUNTER 2020-02-04 02:13 | Outpatient (CLI) | payer OTHER, SELFPAY ==
[2020-02-07 12:08] LABS: COVID-19 RT-PCR Result NEGATIVE (Negative)
== END 2020-02-04 02:33 ==
PROVIDERS: PCP Nurse Practitioner Family; Visit Provider Nurse Practitioner Gerontology
DX: Z11.59 Encounter for screening for other viral diseases (principal)
CPT/HCPCS: U0003

== ENCOUNTER 2020-02-07 07:10 | Day surgery (SDC) | payer OTHER, SELFPAY ==
[2020-02-07] VITALS (7 sets, daily range): BP systolic 90–153; BP diastolic 37–66; PULSE 57–68; RESP 15–18; TEMP 36.2–36.7; O2SAT 94–98
--- NOTE | 2020-02-07 08:05 | W.PM.HP.N ---
Date of service: 02/07/20 Time of Service: 08:06 Assessment and Plan Assessment and plan (1) Calculus of left ureter: Status: Acute Assessment and plan: For ureteroscopic stone manipulation History of Present Illness History of Present Illness Chief Complaint: Left ureteral stone Narrative: This is a 79-year-old gentleman who has a history of bilateral kidney stones. He had undergone a ureteroscopic stone procedure for right sided ureteral stones in October 2019. His stone's composition was 100% calcium oxalate monohydrate. At that time, he was found to have a nonobstructing left lower pole stone that we had planned on monitoring with renal US. He recently presented to the ER with an acute onset of left flank pain. He was found to have a 4 mm left proximal ureteral stone. This is the stone that was previously identified in the left lower pole. No additional stones were found. The stone has not passed. He is not having any fevers or chills, but he has persistent intermittent flank pain. He presents for stone manipulation. Review of Systems Narrative: No fevers or chills No vision change No diabetes or thyroid No shortness of breath, cough or hemoptysis No chest pain or palpitations Hx ascites. New diagnosis liver cancer Hx Parkinson's. No seizures, strokes Pancytopenia No gout [facility] Medical History Anxiety Cirrhosis of liver On beta blockers; Under care of Dr. Joe. Colon cancer Multiple polypectomies. 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 Kidney stones, calcium oxalate monohydrate Liver cirrhosis MGUS (monoclonal gammopathy of unknown significance) Mild cognitive impairment (08/17/15) HANS (obstructive sleep apnea) Pancytopenia Thought to be secondary to liver cirrhosis and splenic sequestratioin. Please note bone marrow biopsy was negative. Parkinson disease Perirectal abscess Prostate cancer (05/24/02) S/P radiation, Lupron, now on Zoladex. 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 no bleeding. no pain. cont care. 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) Ventral hernia Visual hallucination Surgical History BONE MARROW BIOPSY (11/25/14) HellenROSALIOJULIANO Colectomy 1992 colonoscopy (11/21/15) H/O ventral hernia repair History of bowel resection History of Leonid fundoplication S/P cholecystectomy S/P ear surgery Family History Maternal Cousin Colon cancer Maternal Cousin Colon cancer Mother Cervical cancer Social History Smoking/Tobacco Use Status: Former Tobacco Use Second Hand Exposure: No Smoking risk assessment performed?: Yes Alcohol Intake: current Alcohol Intake frequency: holidays/special occasions only Alcohol type: beer Drug use: Never Substance use type: does not use Household members: none Housing: apartment current occupation: Retired Seatbelt use: always Do you feel safe at home: Yes Do you feel safe in your relationship?: Yes Meds Home Medications and Allergies Home Medications Medication Instructions Recorded Confirmed Type carvedilol 3.125 mg PO BID 05/30/13 01/26/20 History tramadol 50 mg tablet 25 mg PO DAILY tab 01/26/19 01/26/20 History ondansetron HCl [Zofran] 4 mg PO Q8H PRN #10 tab 03/05/19 01/26/20 Rx carbidopa ER 25 mg-levodopa 100 mg 2 tab PO QID #240 tab 07/27/19 01/26/20 Rx tablet,extended release riboflavin (vitamin B2) 100 mg 100 mg PO DAILY #90 tab 01/03/20 01/26/20 Rx tablet ondansetron 4 mg PO Q8H PRN #30 tab 01/23/20 01/26/20 Rx tamsulosin 0.4 mg capsule 0.8 mg PO DAILY #14 cap 01/26/20 01/26/20 Rx Allergies Allergy/AdvReac Type Severity Reaction Status Date / Time leuprolide acetate Allergy Severe Swelling/Ed Verified 01/17/20 08:45 [From Lupron] isabelle adhesive Allergy Intermediate Skin Rash Verified 01/17/20 08:45 enalapril [Enalapril] AdvReac Severe Hyperkalemi Verified 01/17/20 08:45 a aspirin AdvReac Intermediate Verified 01/17/20 08:45 esomeprazole magnesium AdvReac Intermediate Diarrhea Verified 01/17/20 08:45 [From Nexium] metformin AdvReac Intermediate Diarrhea Verified 01/17/20 08:45 acetaminophen AdvReac Mild Diarrhea Verified 01/17/20 08:45 Exam Const General: comfortable and no acute distress Neck Neck: supple Resp Effort & Inspection: normal respiratory effort Auscultation: clear to auscultation bilaterally Cardio Rate: regular rate Rhythm: regular rhythm GI Palpation: soft and no masses Neuro General: patient alert, patient awake and patient oriented x3 Results Last Vital Signs Temp 36.7 C 02/07/20 07:37 Pulse 68 02/07/20 07:37 Resp 16 02/07/20 07:37 BP 141/65 H 02/07/20 07:37 Pulse Ox 98 02/07/20 07:37 COVID-19 Screening Have you, or household traveled for leisure in last 14 days?: No Had IN PERSON contact w/suspected or confirmed C-19 person: No
[2020-02-07] MEDS: Lactated Ringers 1,000 ML 80 ML IV (08:15)
[2020-02-07] MEDS: ceFAZolin 1 GM/50 ML BAG IVPB (09:06)
[2020-02-07] MEDS: Omnipaque 300 MG/ML 50 ML BTL (09:51)
[2020-02-07] MEDS: Lidocaine 2% Jelly 6 ML SYR (09:51)
--- NOTE | 2020-02-07 10:04 | W.PM.DSUDISC ---
Discharge Plan Disposition Patient Disposition: HOME Condition: Stable Discharge Details Reason For Visit: Left ureteral stone Attending Provider: Dov Garcias Primary Care Provider: Joanne Riggins Home Meds and New Rx's Prescriptions: No Action tramadol 50 mg tablet 25 mg PO DAILY RF: 0 carbidopa-levodopa 25-100 mg tablet extended release 2 tab PO QID Qty: 240 RF: 11 riboflavin (vitamin B2) 100 mg tablet 100 mg PO DAILY Qty: 90 RF: 3 tamsulosin [Flomax] 0.4 mg capsule 0.8 mg PO DAILY Qty: 14 RF: 0 carvedilol 3.125 MG tablet 3.125 mg PO BID RF: 0 ondansetron HCl [Zofran] 4 mg tablet 4 mg PO Q8H PRN (Reason: nausea and vomiting) Qty: 10 RF: 0 ondansetron 4 mg tablet,disintegrating 4 mg PO Q8H PRN (Reason: nausea and vomiting) Qty: 30 RF: 0 Discharge Instructions Additional Instructions: No need to strain urine Followup 4 to 6 weeks with renal ultrasound Activity:: Activity as Tolerated Shower/Bathe:: 24 hours Diet:: As Tolerated Discharge Orders Discharge Orders: Discharge Order (Routine); Ordered 02/07/20 Ordered By: Dov Garcias DS: Diagnosis Discharge Diagnosis (1) Calculus of left ureter: Status: Acute
--- NOTE | 2020-02-07 10:10 | DI.RAD_ITS ---
EXAM: XR RETROGRADE IN OR CLINICAL HISTORY: retrograde pyleogram TECHNIQUE: 2D and realtime digital imaging was performed. CONTRAST MATERIAL: Refer to procedure report. COMPARISON: No exams were available for comparison FINDINGS: Fluoroscopy was provided for Dr. Garcias during the performance of a retrograde evaluation of the kristy l collecting system. Please refer to the procedure report for complete details. Fluoro time: 27.6 seconds IMPRESSION:
--- NOTE | 2020-02-07 10:13 | ROE_ITS ---
Date of service: 02/07/20 Time of Service: 10:14 Operative Note Operative Note DATE OF PROCEDURE: 02/07/20 PRE-OP DIAGNOSIS: Left nureteral stone POST-OP DIAGNOSIS: same recently passed PROCEDURE: cystoscopy, left retrograde pyelogram, left flexible ureteroscopy ANESTHESIA: other (General without intubation) ESTIMATED BLOOD LOSS: 25 PATHOLOGY: none sent COMPLICATIONS: None Patient was transported to: same day Patient's condition: stable Indications: This is a 79-year-old gentleman who has a history of kidney stones. He had a repeat ureteroscopic procedure on the right side back in October of this year. At that time, he also had a nonobstructing stone in the lower pole of his left kidney. He recently developed renal colic and presented to the emergency room. The stone had migrated to the upper ureter. He was not aware of the stone having passed and was having some intermittent left-sided back and flank pain. He presents now for cystoscopy with ureteroscopic stone manipulation Findings: no stones in ureter or collecting system Procedure Description: The patient was brought to the operating room on 02/07/2020. After successful induction of general anesthesia without intubation, he was placed in the dorsal lithotomy position. His genitalia was prepped and draped. 2% Xylocaine jelly was instilled into the urethra to act as a local anesthetic. A 22 Scottish rigid cystoscope was passed through the urethra into the bladder. The urethra and bladder were inspected with a 30 degree lens. The pendulous, bulbous and membranous urethra was all appeared normal with no strictures. The prostatic urethra showed no papillary or nodular lesions. The bladder neck was entered and the bladder mucosa was inspected. The bladder mucosa was pale with patchy prominent blood vessels consistent with radiation cystitis changes. The left ureteral orifice was identified. The orifice was cannulated with a 6 Scottish access catheter and a retrograde film was obtained by injecting Omnipaque through the access catheter under fluoroscopic guidance. The ureters and collecting system appeared normal with no filling defects. There was some delay of excretion from the left kidney. Glidewire was then advanced through the access catheter and the access catheter and cystoscope were removed. A dual-lumen catheter was advanced over the wire and a second wire was positioned. We chose one of the wires as a working wire and the other is a safety wire. The ureteral access sheath was advanced over the working wire. The sheath was positioned in the mid left ureter. The flexible ureteroscope was then introduced through the access sheath and advanced up the remainder of the ureter and into each of the calyces. The calyces were mapped with the retrograde pyelogram. No stones were seen in any of the calyces. There were some blood clots in the upper pole calyx which appeared to be associated with the placement of the safety wire. These clots were evacuated with a 10 cc syringe. No stone was seen beneath the clots. The scope was then withdrawn back down the ureter all the way to the bladder. No stones were seen within the ureter. The scopes and safety wire were then removed. We chose not to place a ureteral stent postop. The patient tolerated this procedure well with no complications. He was taken back to day surgery in stable condition.
[2020-02-07] MEDS: Phenazopyridine 200 MG TAB PO (12:31)
== END 2020-02-07 12:54 | disposition home or self-care (01) ==
PROVIDERS: PCP Nurse Practitioner Family; Visit Provider Urology
PROC: (CPT 52005; principal; 2020-02-07 08:45)
DX: N20.1 Calculus of ureter (principal); N30.40 Irradiation cystitis without hematuria; W88.1XXS Exposure to radioactive isotopes, sequela; Z87.442 Personal history of urinary calculi; E11.9 Type 2 diabetes mellitus without complications; K21.9 Gastro-esophageal reflux disease without esophagitis; I10 Essential (primary) hypertension; G47.33 Obstructive sleep apnea (adult) (pediatric); Z85.46 Personal history of malignant neoplasm of prostate; Z92.3 Personal history of irradiation
CPT/HCPCS: 52005; NC; 74420; J0690; J1885; J2405; J2704; Q9967

== ENCOUNTER 2020-02-24 17:58 | Emergency (ER) | payer OTHER, SELFPAY ==
[2020-02-24 18:02] VITALS: BP 141/69; PULSE 69; RESP 18; TEMP 36.5; O2SAT 96
--- NOTE | 2020-02-24 18:15 | DI.CT_ITS ---
EXAM: CT HEAD CERVICAL SPINE WO CLINICAL HISTORY: fall/pain. TECHNIQUE: Imaging Protocol: Axial computed tomography images with coronal and sagittal reformatted images were created and reviewed COMPARISON: CT CT HEAD FOR STROKE PROTOCOL from 04/08/[address] HEAD WO from 09/25/[address] NECK WO from 11/24/2019 FINDINGS: CT Head: Ventricles and Extra axial spaces: Normal in size and morphology for the patient's age. Hemorrhage: None. Cerebral parenchyma: No acute territorial infarct. There are areas of decreased attenuation in the w landry matter most consistent with chronic microvascular ischemic disease. Midline shift: None. Brainstem/Cerebellum: Normal. Calvarium: No acute fracture. Stable postsurgical changes in the left mastoid. Stable opacification of the right mastoid. Visualized Paranasal sinuses/Mastoids: Mild mucosal thickening in the maxillary sinuses. Thickening of the calvillo of the maxillary sinuses is noted likely reflecting chronic sinus disease. Soft Tissues: Unremarkable. CT Cervical Spine: Bones: No acute fracture or subluxation. Degenerative changes are seen throughout the cervical spine. No change in alignment of the cervical spine. Soft Tissues: Unremarkable. Lung Apices: Clear. IMPRESSION: 1. No acute intracranial process. 2. No acute fracture or subluxation in the cervical spine. RADIATION DOSE DELIVERED: 1,521.71mGy.cm Total DLP DATA REPOSITORY: All CT scans at this facility are submitted to the National Radiology Data Registry (NRDR) Dose Index Registry (DIR) with the [employer] (A[employer]). RADIATION OPTIMIZATION: All CT scans at this facility use at least one of these dose optimization te chniques: automated exposure control; mA and/or kV adjustment per patient size (includes targeted exa ms where dose is matched to clinical indication); or iterative reconstruction.
--- NOTE | 2020-02-24 18:58 | ED.GENADUL_ITS ---
Discharge Plan Disposition Patient Disposition: HOME Condition: Stable Discharge Details Clinical Impression: Back pain, Neck pain Primary Care Provider: Joanne Riggins ED Provider: [place] Home Meds and New Rx's Prescriptions: Continued tramadol 50 mg tablet 25 mg PO DAILY RF: 0 carbidopa-levodopa 25-100 mg tablet extended release 2 tab PO QID Qty: 240 RF: 11 riboflavin (vitamin B2) 100 mg tablet 100 mg PO DAILY Qty: 90 RF: 3 tamsulosin [Flomax] 0.4 mg capsule 0.8 mg PO DAILY Qty: 14 RF: 0 loperamide 2 mg capsule 2 mg PO QID RF: 0 ondansetron HCl 4 mg tablet 4 mg PO Q8-10H RF: 0 carvedilol 3.125 mg tablet 3.12 mg PO DAILY RF: 0 Discharge Instructions Instructions: Back Pain (ED), Neck Pain (ED) Additional Instructions: Imaging of your head, neck, shoulder did not reveal any obvious bony abnormalities. Cool and/or warm compresses every 2 hours for clinic. Gentle stretching as tolerated. [id number] medication as directed for symptomatic control. Please watch for new or worsening symptoms return to the ER for any concerns. I do recommend reaching out your primary care provider tomorrow for prompt outpatient reevaluation. Medical Decision Making 79-year-old gentleman with a history of Parkinson's disease, presents to the ER today via EMS. He had a mechanical slip and fall when transferring from one chair to the next. He did strike his head but denies any LOC. Reports diffuse posterior neck discomfort. Placed immediately into a hard c-collar. The fall was mechanical, he was asymptomatic prior. Will not obtain any laboratory valu es reflexively. I believe obtaining a right shoulder x-ray, CT imaging of his head and neck are all reasonable. I had a very candid conversation with the patient who states that he does not want to stay here tonight and he feels safe going home. X-ray of right shoulder read by radiology as no acute fracture. Mild glenohumeral joint degenerative spurring. Probable chronic rotator cuff injury. CT imaging of head and C-spine read by radiology as no clear abnormality. Degenerative spondylosis of the cervical spine, no acute fracture. Discussed CT and x-ray findings with patient. He reports that he wants the type of pill he was given the last time complain for his kidney stone. After reviewing this it appears as though he received 5 mg hydrocodone. 5 mg hydrocodone given now. He reports mild nausea after receiving the hydrocodone. He was then p.o. challenged. Denies any ongoing nausea. No vomiting while in my care. He was monitored in the ER for an additional 1-2 hours while waiting for transportation. His blood pressure at 1 point did trend downward although did not appear to be any lower than what he has been in the past. At the time he was discharged his blood pressure was back up to 100/60. We did discuss the idea of observation overnight but he again declines. Patient is awake, alert, oriented, able to make his own decisions. Patient has no additional questions or concerns and is requesting discharge. Medical Records Medical records reviewed: Yes I reviewed the patient's medical records. HPI General Mode of arrival: EMS . Date/Time Provider Initiated Documentation: 02/24/20 18:03 . Limitations to Documentation: no limitations . Information obtained by: patient and EMS . HPI Narrative: This is a 79-year-old gentleman with past medical history of Parkinson's disease, kidney stones, esophagitis, GERD, hypertension, iron deficiency, pancytopenia, dysarthria, diabetes, anxiety, presenting to the ER status post a fall while attempting to transfer from 1 chair to another. Patient reports that he uses an electric wheelchair and is really not ambulatory at all. He states that he slipped from one chair, landing between 2 chairs. He states that he injured his posterior right shoulder, struck the back of his head but denies any LOC. He does report diffuse posterior neck pain. He denies global headache, visual changes, chest pain, shortness of breath abdominal pain, nausea, vomiting, numbness, tingling, weakness. Presents via EMS, no medications given. Denies any other illness or trauma Related Data Home Medications Medication Instructions Recorded Confirmed tramadol 50 mg tablet 25 mg PO DAILY tab 01/26/19 02/24/20 carbidopa ER 25 mg-levodopa 100 mg 2 tab PO QID #240 tab 07/27/19 02/24/20 tablet,extended release riboflavin (vitamin B2) 100 mg 100 mg PO DAILY #90 tab 01/03/20 01/26/20 tablet tamsulosin 0.4 mg capsule 0.8 mg PO DAILY #14 cap 01/26/20 02/24/20 carvedilol 3.12 mg PO DAILY 02/24/20 02/24/20 loperamide 2 mg PO QID 02/24/20 02/24/20 ondansetron HCl 4 mg PO Q8-10H 02/24/20 02/24/20 Previous Rx's Medication Instructions Recorded carbidopa ER 25 mg-levodopa 100 mg 2 tab PO QID #240 tab 07/27/19 tablet,extended release riboflavin (vitamin B2) 100 mg 100 mg PO DAILY #90 tab 01/03/20 tablet tamsulosin 0.4 mg capsule 0.8 mg PO DAILY #14 cap 01/26/20 Allergies Allergy/AdvReac Type Severity Reaction Status Date / Time leuprolide acetate Allergy Severe Swelling/Ed Verified 02/24/20 18:12 [From Lupron] isabelle adhesive Allergy Intermediate Skin Rash Verified 02/24/20 18:12 enalapril [Enalapril] AdvReac Severe Hyperkalemi Verified 02/24/20 18:12 a aspirin AdvReac Intermediate Verified 02/24/20 18:12 esomeprazole magnesium AdvReac Intermediate Diarrhea Verified 02/24/20 18:12 [From Nexium] metformin AdvReac Intermediate Diarrhea Verified 02/24/20 18:12 acetaminophen AdvReac Mild Diarrhea Verified 02/24/20 18:12 General Stated Complaint: Orthopedic SHEKHAR: 3 Review of Systems Constitutional Constitutional: Denies fatigue, Denies fever(s), Denies headache(s) and Denies weakness Eyes Eyes: Denies change in vision ENT Ears, Nose, Mouth, and Throat: Denies headache(s) and Reports neck pain Cardiovascular Cardiovascular: Denies chest pain and Denies dyspnea Respiratory Respiratory: Denies cough and Denies dyspnea Gastrointestinal Gastrointestinal: Denies abdominal pain, Denies nausea and Denies vomiting Musculoskeletal Musculoskeletal: Reports back pain and Reports neck pain Integumentary/Breasts Skin/Breast: Denies rash Neurologic Neurologic: Denies headache(s), Reports disequilibrium (At baseline) and Denies weakness Endocrine Endocrine: Denies fatigue [facility] Medical History Anxiety Cirrhosis of liver On beta blockers; Under care of Dr. Joe. Colon cancer Multiple polypectomies. 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 Kidney stones, calcium oxalate monohydrate Liver cirrhosis MGUS (monoclonal gammopathy of unknown significance) Mild cognitive impairment (08/17/15) HANS (obstructive sleep apnea) Pancytopenia Thought to be secondary to liver cirrhosis and splenic sequestratioin. Please note bone marrow biopsy was negative. Parkinson disease Perirectal abscess Prostate cancer (05/24/02) S/P radiation, Lupron, now on Zoladex. 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 no bleeding. no pain. cont care. 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) Ventral hernia Visual hallucination Surgical History BONE MARROW BIOPSY (11/25/14) LISSET Colectomy 1992 colonoscopy (11/21/15) H/O ventral hernia repair History of bowel resection History of Leonid fundoplication S/P cholecystectomy S/P ear surgery Family History Maternal Cousin Colon cancer Maternal Cousin Colon cancer Mother Cervical cancer Social History Smoking/Tobacco Use Status: Former Tobacco Use Second Hand Exposure: No Smoking risk assessment performed?: Yes Alcohol Intake: current Alcohol Intake frequency: holidays/special occasions only Alcohol type: beer Drug use: Never Substance use type: does not use Household members: none Housing: apartment current occupation: Retired Seatbelt use: always Do you feel safe at home: Yes Do you feel safe in your relationship?: Yes Exam Const General: cooperative, healthy appearing, comfortable and no acute distress Orientation: alert, awake and oriented x3 HENMT Head: normocephalic Head images: 1. Contusion Face and sinus: normal facial exam Mouth: moist mucous membranes Eyes General: appearance normal, both eyes and all related structures Alignment and Position: alignment normal Periorbital: periorbital findings normal Eyelids: eyelids normal Conjunctivae: conjunctivae normal Sclera: sclerae normal Cornea: corneas normal Pupils: PERRL EOM: EOM intact bilaterally Direct ophthalmoscopy: normal light reflex Neck Neck: normal visual inspection, no lymphadenopathy, no meningeal signs, trachea midline, supple and tender (Diffuse posterior, hard c-collar placed) Chest Chest: normal inspection of the chest and normal palpation of entire chest wall Resp Effort & Inspection: normal respiratory effort and able to speak in complete sentences Auscultation: clear to auscultation bilaterally Cardio Rate: regular rate Rhythm: regular rhythm GI Inspection: normal to inspection Palpation: soft and nontender Back/Spine/Pelvis Back: No back tenderness Skin General skin exam: no rashes or lesions noted Neuro General: patient alert, patient awake, patient oriented x3, moves all extremities and no focal motor deficits Cognition: normal cognition Speech: speech normal Motor: muscle tone normal throughout Sensory Exam: no sensory deficits noted Extrem General: full ROM, capillary refill normal, no pedal edema and no calf tenderness Shoulder/upper arm images: 1. Contusion-abrasion. Mild discomfort. Full range of motion. Neuro, vascu lar, tendon intact. Psych Appearance: grossly normal Mental Status: mental status grossly normal Course Vital Signs Vital signs: Vital Signs Temperature 36.5 C 02/24/20 18:02 Pulse 69 02/24/20 18:02 Respiratory Rate 18 02/24/20 18:02 Blood Pressure 141/69 H 02/24/20 18:02 Pulse Oximetry 96 02/24/20 18:02 Temperature 36.5 C 02/24/20 18:02 Temperature Source Skin 02/24/20 18:02 Pulse 69 02/24/20 18:02 Respiratory Rate 18 02/24/20 18:02 Respiratory Effort Non-Labored 02/24/20 18:12 Blood Pressure 141/69 H 02/24/20 18:02 Blood Pressure Position Supine 02/24/20 18:02 Pulse Oximetry 96 02/24/20 18:02 Oxygen Delivery Method Room Air 02/24/20 18:02 Oxygen Flow Rate 0 02/24/20 18:02 Pain Level 8 02/24/20 18:02
--- NOTE | 2020-02-24 19:26 | DI.RAD_ITS ---
EXAM: XR SHOULDER RT COMPLETE 2+V CLINICAL HISTORY: fall. TECHNIQUE: 2D digital imaging was performed. COMPARISON: CR XR shoulder RT complete 2+V from 10/08/2018 FINDINGS: BONES: No acute fracture is present. No bony destructive lesion is seen. Old right rib fractures. Ol d healed distal clavicular fracture. JOINTS: No dislocation present. Degenerative changes at the glenohumeral joint. The humeral head is high riding which can be seen with chronic rotator cuff tear. SOFT TISSUE: Normal. IMPRESSION: No acute fracture or dislocation. DATA REPOSITORY: RADIATION DOSE DELIVERED:
--- NOTE | 2020-02-24 19:38 | DI.VRAD_ITS ---
PROCEDURE INFORMATION: Exam: XR Right Shoulder Exam date and time: 02/24/2020 7:25 PM Age: 79 years old Clinical indication: Other: Fall/pain TECHNIQUE: Imaging protocol: XR Right shoulder. Views: 2 or more views. COMPARISON: CR XR shoulder RT complete 2+V 10/08/2018 12:37 AM FINDINGS: Bones/joints: No acute fracture. Healed distal clavicular fracture. High-riding right humerus suggests chronic rotator cuff injury. Mild inferior glenohumeral joint degenerative spurring. Several healed posterior right rib fractures. Soft tissues: Normal. IMPRESSION: 1. No acute fracture. 2. Mild glenohumeral joint degenerative spurring. 3. Probable chronic rotator cuff injury. Dictated and Authenticated by: Andrea Albert MD. Ordering:ELMA Gallegos MD
--- NOTE | 2020-02-24 19:48 | DI.VRAD_ITS ---
PROCEDURE INFORMATION: Exam: CT Head Without Contrast Exam date and time: 02/24/2020 6:26 PM Age: 79 years old Clinical indication: Other: Fall/pain TECHNIQUE: Imaging protocol: Computed tomography of the head without contrast. COMPARISON: CT HEAD WO 10/08/2018 12:22 AM FINDINGS: Brain: Global cerebral atrophy is consistent with patient's age. Decreased attenuation within the white matter tracts of both cerebral hemispheres is nonspecific but typically seen with small vessel disease/chronic white matter ischemic changes of aging. No intracranial hemorrhage or mass effect. Cerebral ventricles: No ventriculomegaly. Bones/joints: Unremarkable. No acute fracture. Paranasal sinuses: Mild mucosal thickening of the right maxillary sinus. No paranasal sinus air-fluid level. Mastoid air cells: Opacification of right and left mastoids with evidence of left mastoidectomy. Soft tissues: Unremarkable. IMPRESSION: No acute intracranial abnormality. PROCEDURE INFORMATION: Exam: CT Cervical Spine Without Contrast Exam date and time: 02/24/2020 6:26 PM Age: 79 years old Clinical indication: Other: Fall/pain TECHNIQUE: Imaging protocol: Computed tomography images of the cervical spine without contrast. COMPARISON: CT HEAD CERVICAL SPINE WO 10/08/2018 12:22 AM FINDINGS: Bones/joints: No acute fracture. Discs/Spinal canal/Neural foramina: Degenerative disc disease and facet arthrosis throughout the cervical spine. Minimal anterolisthesis of C4 is unchanged and likely degenerative. No bony spinal stenosis. Retropharyngeal space: The retropharyngeal soft tissues are unremarkable. Mastoid air cells: Complete opacification of both mastoids. Changes of previous left mastoidectomy. Fluid/soft tissue density within both middle ear cavities, worse on the right. Lungs: Lung apices are clear. Soft tissues: Unremarkable. IMPRESSION: 1. Degenerative spondylosis of the cervical spine. 2. No acute fracture. Dictated and Authenticated by: Tung Noguera MD. Ordering:ELMA Gallegos MD
[2020-02-24] MEDS: oxyCODONE 5 MG TAB PO (20:25)
[2020-02-24 20:43] VITALS: BP 100/53; PULSE 68; RESP 18
[2020-02-24 21:20] VITALS: BP 76/48; PULSE 67
[2020-02-24 21:30] VITALS: BP 91/48; PULSE 63
[2020-02-24 22:53] VITALS: BP 99/51; PULSE 68; RESP 18; O2SAT 98
== END 2020-02-24 22:46 | disposition home or self-care (01) ==
PROVIDERS: Emergency Provider Physician Assistant; PCP Nurse Practitioner Family
DX: M25.511 Pain in right shoulder (principal); M54.2 Cervicalgia; S00.03XA Contusion of scalp, initial encounter; W05.0XXA Fall from non-moving wheelchair, initial encounter; G20 Parkinson's disease; I10 Essential (primary) hypertension; E11.9 Type 2 diabetes mellitus without complications
CPT/HCPCS: 36416; 82962; 99284; 70450; 72125; 73030

== ENCOUNTER 2020-02-28 10:02 | Inpatient (IN) | payer OTHER, SELFPAY ==
[2020-02-28] VITALS (48 sets, daily range): BP systolic 133–178; BP diastolic 54–81; PULSE 74–116; RESP 18–27; TEMP 36.5–37.2; O2SAT 85–100
--- NOTE | 2020-02-28 10:15 | DI.RAD_ITS ---
EXAM: XR PORTABLE CHEST AP CLINICAL HISTORY: SOB. TECHNIQUE: 2D digital imaging was performed. COMPARISON: CR,XR XR PORTABLE CHEST AP from 02/14/2019 FINDINGS: Chest leads in place. Cardiomegaly again noted. Multiple healed right-sided rib fractures are again evident. There is platelike atelectasis in both lung bases. Left hemidiaphragm is again noted be s lightly elevated. No pneumothorax IMPRESSION: Bibasilar atelectasis. Cardiomegaly. No pulmonary edema. Healed right-sided rib fractures and righ t clavicle fracture again noted. DATA REPOSITORY: RADIATION DOSE DELIVERED:
--- NOTE | 2020-02-28 10:15 | RT.EKG_ITS ---
APPROVED REPORT Exam: Resting ECG Patient Location: E HR:107 bpm ECG Measurements Heart Rate 107 AXIS WY 174 P 40 QRSd 91 QRS 33 QT 362 T 5 QTc 482 Conclusion Sinus tachycardia...rate> 99 Low voltage, precordial leads...precordial leads <1.0mV sinus tachycardia 107, normal axis, low voltage in precordial leads, nondiagnostic EKG
--- NOTE | 2020-02-28 10:30 | ED.GENADUL_ITS ---
Discharge Plan Discharge Details Chief Complaint: Abd Prob Admit Date/Time: 02/28/20 14:17 Admit Provider: El Meyers Attending Provider: El Meyers Primary Care Provider: Joanne Riggins ED Provider: Rachelle Moon Discharge Data Discharge Date/Time-TO BE ENTERED AT DEPARTURE: 02/28/20 14:46 Medical Decision Making Drake Ren is a 79-year-old man with history of hypertension, Parkinson's disease, colon cancer, liver cirrhosis, insulin-dependent diabetes, recently di agnosed with terminal liver cancer who presented to the emergency department with generalized weakness over the past 2 days, worsening abdominal distention over the past few days, new jaundice, shortness of breath. On exam patient appears chronically ill. Mildly tachypneic but able to speak in full sentences. Significant abdominal distention without tenderness to palpation. Trace bilateral lower extremity edema. Concern for liver failure, metabolic/lyte derangement, CHF, other. Doubt acute coronary syndrome, spontaneous bacterial peritonitis. Exam/history is not consistent with acute emergent intracranial process, pulmonary embolism, plan for screening labs, judicious IV fluid, CT abdomen/pelvis, chest x-ray. Will monitor and reassess. Patient states that he refuses to have any procedure performed without sedation, including paracentesis. Will defer, awaiting CT scan. Patient scheduled to see Dr. Costa of palliative care tomorrow, given patient was told that he would likely not live until [place] given terminal liver cancer and ill appearance today, I discussed patient with Dr. Ramos of palliative care who will see patient as inpatient this evening. WBC normal. Hemoglobin resulted at 6.4. Most recent in January 25. Patient denies melena/hematochezia, other bleeding. Plan to transfuse, per blood bank patient with antibodies and transfusion will be delayed. Hypocalcemia noted, will replete. UA questionable for UTI. Will treat with ceftriaxone. Had a discussion with the patient regarding his code status given his terminal diagnosis and overall poor prognosis. Patient states that he wants minimal intervention, he states that he does not want to be resuscitated should his heart stop and does not want to be placed on a breathing machine under any circumstances. Patient has decision-making capacity. Per radiology CT shows significant increase in ascites, also with material in right flank fluid concerning for clotted blood. I discussed patient with Dr. Yeung of surgery, who states that unclear where patient would be bleeding from, though possibly bleeding from/around liver tumor. He states patient would need vascular imaging and likely embolization. I discussed this with patient, he states that he does not want to be transferred under any circumstances and understands that this bleeding in addition to other pathologies may result in his . Patient continues to be alert and oriented x3 and has decision- making capacity. Patient is agreeable to blood transfusion and verbal consent was provided after risks and benefits were discussed. Dr. Yeung at bedside, patient now amenable to paracentesis. Dr. Yeung attempted paracentesis under ultrasound guidance, approximately 1 cc of bloody fluid was able to be aspirated, bloody fluid returned at 2 sites, therapeutic paracentesis unable to be performed due to no further return. Patient admitted to medicine. Clinical impression: Hemorrhagic ascites Disposition: [facility] inpatient Medical Records Medical records reviewed: Yes I reviewed the patient's medical records. Imaging Data Radiologic Study: Attestation: I personally reviewed and interpreted this imaging study as follows: Radiologist's impression: EXAM: XR PORTABLE CHEST AP CLINICAL HISTORY: SOB. TECHNIQUE: 2D digital imaging was performed. COMPARISON: CR,XR XR PORTABLE CHEST AP from 02/14/2019 FINDINGS: Chest leads in place. Cardiomegaly again noted. Multiple healed right-sided rib fractures are again evident. There is platelike atelectasis in both lung bases. Left hemidiaphragm is again noted be slightly elevated. No pneumothorax IMPRESSION: Bibasilar atelectasis. Cardiomegaly. No pulmonary edema. Healed right-sided rib fractures and right clavicle fracture again noted. EXAM: CT ABDOMEN PELVIS W CLINICAL HISTORY: new abdominal distention, pain. TECHNIQUE: Imaging Protocol: Axial computed tomography images with coronal and sagittal reformatted images were created and reviewed CONTRAST MATERIAL: Intravenous: Omnipaque 100cc Oral: None COMPARISON: CT CT RENAL COLIC WO from 01/23/2020 FINDINGS: VISUALIZED LUNG BASES: No nodules nor pleural effusions evident. ABDOMEN: Again noted is a large amount ascites in the abdomen and pelvis which has slightly further increased. In addition, there is some hyperdense material in the right flank ascites which may be clot. LIVER: Liver is again noted be cirrhotic in appearance. Relatively hypodense area in the inferior right hepatic lobe is noted the, this measuring approximately 5 x 6 centimetres. Possibly neoplastic. GALLBLADDER/BILIARY: Gallbladder is again noted be surgically absent. CBD is not dilated. PANCREAS: No evidence of pancreatic mass nor dilatation of the pancreatic duct. SPLEEN: Spleen size is unchanged, with some splenomegaly evident splenic and portal veins are patent. ADRENALS: There are no significant adrenal masses. KIDNEYS:There is a prominent parapelvic cyst in the right kidney again noted which measures approximately 5 by 3.2 centimetres. Smaller benign cysts are noted in the opposite-left kidney. No solid renal masses. There are no obvious calculi in the kidneys at this time. There is no hydronephrosis nor hydroureter on either side. No calculi in the urinary bladder. Metallic density is again noted interposed between the posterior wall of the bladder and the nonenlarged prostate. ABDOMINAL AORTA: Abdominal aorta is not enlarged and there is no onhytwtljtvrfwg-vizs-drxuop adenopathy. ABDOMINAL WALL/GI: The previously described left of center anterior abdominal wall hernia is again noted which contains some fluid no bowel loops therein. No bowel obstruction. PELVIS: GI: Again noted is evidence of right hemicolectomy.No bowel obstruction. LYMPH NODES: There is no intrapelvic nor inguinal adenopathy. REPRODUCTIVE: Prostate gland is not enlarged. URINARY BLADDER: No obvious calculi evident within the nondistended bladder at t his time. OSSEOUS: Compression fracture of L3 superior endplate is again noted, unchanged. IMPRESSION: 1. Compared to the prior CT scan of 01/23/2020 there is again noted a massive amount of ascites which is slightly further increased. Some of the fluid is again noted to be extending into left of center anterior abdominal wall hernia sac which appears unchanged and does not contain bowel loops therein. There is no bowel obstruction nor free air. A possible concern here is the appearance of the ascites in the right flank which contain some hyperdense material at this time, not previously present. This may represent some clot/clotted blood. 2. Liver appears cirrhotic and there is a subtle suggestion of a non-cystic mass in the right hepatic lobe. Possibility of hepatoma is to be considered. 3. Gallbladder is again noted be surgically absent. Biliary tree is not dilated. 4. There presently no renal calculi evident and no hydronephrosis. Parapelvic cyst in the right kidney is again noted. Small cortical cysts noted bilaterally. No solid renal lesions evident. Lab Data Lab results reviewed: Yes I reviewed the patient's lab results. Labs: 02/28/20 14:25 Peritoneal Body Fluid Culture - Pending 02/28/20 14:25 Peritoneal Gram Stain - Pending 02/28/20 11:05 Urine - Reflex from Ua Urine Culture - Pending 02/28/20 10:45 Blood Blood Culture - Pending 02/28/20 10:30 Blood Blood Culture - Pending Laboratory Tests Range/Units 02/28/20 02/28/20 02/28/20 10:30 10:30 10:30 WBC (4.4-10.8) 10^3/uL 7.76 RBC (4.36-5.78) 10^6/uL 2.14 L Hgb (13.5-17.5) g/dL 6.4 L* Hct (40.0-50.0) % 19.7 L* MCV (80-95) fL 92.1 MCH (27.0-33.0) pg 29.9 MCHC (32.0-36.0) % 32.5 RDW (11.8-14.1) % 18.3 H Plt Count (130-400) 10^3/uL 120 L MPV (8.0-11.0) fL 10.1 Immature Gran % 0.9 Neutrophils % 82.9 Lymphocytes % 6.4 Monocytes % 9.1 Eosinophils % 0.4 Basophils % 0.3 Nucleated RBC % % 0 Absolute Neutrophils (1.2-6.7) 10^3/uL 6.43 Absolute Lymphocytes (1.2-3.4) 10^3/uL 0.50 L Absolute Monocytes (0.1-0.8) 10^3/uL 0.71 Absolute Eosinophils (0.0-0.7) 10^3/uL 0.03 Absolute Basophils (0.0-0.2) 10^3/uL 0.02 RBC Morphology See below Polychromasia Present Anisocytosis 2+ Macrocytosis 1+ Ovalocytes 2+ PT (9.3-11.0) sec INR (0.9-1.1) VBG Lactate (0.6-1.4) mmol/L Sodium (136-145) mmol/L 133 L Potassium (3.5-5.1) mmol/L 4.2 Chloride (98-107) mmol/L 102 Carbon Dioxide (21.0-32.0) mmol/L 23.6 Anion Gap (3-11) mmol/L 7.4 BUN (7-18) mg/dL 17 Creatinine (0.70-1.30) mg/dL 1.27 Estimated GFR/1.73 m2 (mL/min/1.73m2) 54.99 Glucose (74-106) mg/dL 279 H Calcium (8.5-10.1) mg/dL 7.5 L Total Bilirubin (0.2-1.0) mg/dL 4.0 H AST (15-37) U/L 50 H ALT (16-63) U/L 9 L Alkaline Phosphatase (46-116) U/L 109 Ammonia (11-32) umol/L 16 Troponin I (<0.06) ng/mL NT-Pro-B Natriuret Pep (<300) pg/mL Total Protein (6.4-8.2) g/dL 5.6 L Albumin (3.4-5.0) g/dL 2.4 L Urine Color (Yellow) Urine Clarity (Clear) Urine pH (5-8) Ur Specific [place] (1.005-1.025) Urine Protein (Negative) mg/dL Urine Ketones (Negative) mg/dL Urine Blood (Negative) Urine Nitrite (Negative) Urine Bilirubin (Negative) Urine Urobilinogen (Up TO 0.2) EU/dL Ur Leukocyte Esterase (Negative) Urine RBC (0-2) HPF Urine WBC (0-5) HPF Ur Epithelial Cells (Negative) HPF Urine Crystals (Negative) HPF Urine Bacteria (Negative) HPF Urine Casts (Negative) LPF Urine Mucus (Negative) Ur Culture Indicated? Urine Glucose (Negative) mg/dL Patient ABO/Rh Antibody Screen Antibody Identification Crossmatch Range/Units 02/28/20 02/28/20 02/28/20 10:30 10:30 10:45 WBC (4.4-10.8) 10^3/uL RBC (4.36-5.78) 10^6/uL Hgb (13.5-17.5) g/dL Hct (40.0-50.0) % MCV (80-95) fL MCH (27.0-33.0) pg MCHC (32.0-36.0) % RDW (11.8-14.1) % Plt Count (130-400) 10^3/uL MPV (8.0-11.0) fL Immature Gran % Neutrophils % Lymphocytes % Monocytes % Eosinophils % Basophils % Nucleated RBC % % Absolute Neutrophils (1.2-6.7) 10^3/uL Absolute Lymphocytes (1.2-3.4) 10^3/uL Absolute Monocytes (0.1-0.8) 10^3/uL Absolute Eosinophils (0.0-0.7) 10^3/uL Absolute Basophils (0.0-0.2) 10^3/uL RBC Morphology Polychromasia Anisocytosis Macrocytosis Ovalocytes PT (9.3-11.0) sec 15.7 H INR (0.9-1.1) 1.6 H VBG Lactate (0.6-1.4) mmol/L 3.9 H* Sodium (136-145) mmol/L Potassium (3.5-5.1) mmol/L Chloride (98-107) mmol/L Carbon Dioxide (21.0-32.0) mmol/L Anion Gap (3-11) mmol/L BUN (7-18) mg/dL Creatinine (0.70-1.30) mg/dL Estimated GFR/1.73 m2 (mL/min/1.73m2) Glucose (74-106) mg/dL Calcium (8.5-10.1) mg/dL Total Bilirubin (0.2-1.0) mg/dL AST (15-37) U/L ALT (16-63) U/L Alkaline Phosphatase (46-116) U/L Ammonia (11-32) umol/L Troponin I (<0.06) ng/mL < 0.05 NT-Pro-B Natriuret Pep (<300) pg/mL 335 H Total Protein (6.4-8.2) g/dL Albumin (3.4-5.0) g/dL Urine Color (Yellow) Urine Clarity (Clear) Urine pH (5-8) Ur Specific [place] (1.005-1.025) Urine Protein (Negative) mg/dL Urine Ketones (Negative) mg/dL Urine Blood (Negative) Urine Nitrite (Negative) Urine Bilirubin (Negative) Urine Urobilinogen (Up TO 0.2) EU/dL Ur Leukocyte Esterase (Negative) Urine RBC (0-2) HPF Urine WBC (0-5) HPF Ur Epithelial Cells (Negative) HPF Urine Crystals (Negative) HPF Urine Bacteria (Negative) HPF Urine Casts (Negative) LPF Urine Mucus (Negative) Ur Culture Indicated? Urine Glucose (Negative) mg/dL Patient ABO/Rh Antibody Screen Antibody Identification Crossmatch Range/Units 02/28/20 02/28/20 11:05 11:35 WBC (4.4-10.8) 10^3/uL RBC (4.36-5.78) 10^6/uL Hgb (13.5-17.5) g/dL Hct (40.0-50.0) % MCV (80-95) fL MCH (27.0-33.0) pg MCHC (32.0-36.0) % RDW (11.8-14.1) % Plt Count (130-400) 10^3/uL MPV (8.0-11.0) fL Immature Gran % Neutrophils % Lymphocytes % Monocytes % Eosinophils % Basophils % Nucleated RBC % % Absolute Neutrophils (1.2-6.7) 10^3/uL Absolute Lymphocytes (1.2-3.4) 10^3/uL Absolute Monocytes (0.1-0.8) 10^3/uL Absolute Eosinophils (0.0-0.7) 10^3/uL Absolute Basophils (0.0-0.2) 10^3/uL RBC Morphology Polychromasia Anisocytosis Macrocytosis Ovalocytes PT (9.3-11.0) sec INR (0.9-1.1) VBG Lactate (0.6-1.4) mmol/L Sodium (136-145) mmol/L Potassium (3.5-5.1) mmol/L Chloride (98-107) mmol/L Carbon Dioxide (21.0-32.0) mmol/L Anion Gap (3-11) mmol/L BUN (7-18) mg/dL Creatinine (0.70-1.30) mg/dL Estimated GFR/1.73 m2 (mL/min/1.73m2) Glucose (74-106) mg/dL Calcium (8.5-10.1) mg/dL Total Bilirubin (0.2-1.0) mg/dL AST (15-37) U/L ALT (16-63) U/L Alkaline Phosphatase (46-116) U/L Ammonia (11-32) umol/L Troponin I (<0.06) ng/mL NT-Pro-B Natriuret Pep (<300) pg/mL Total Protein (6.4-8.2) g/dL Albumin (3.4-5.0) g/dL Urine Color (Yellow) Urine Clarity (Clear) Sl cloudy Urine pH (5-8) 5.5 Ur Specific [place] (1.005-1.025) 1.025 Urine Protein (Negative) mg/dL 30 H Urine Ketones (Negative) mg/dL Trace H Urine Blood (Negative) Trace-lysed H Urine Nitrite (Negative) Color interference Urine Bilirubin (Negative) Moderate H Urine Urobilinogen (Up TO 0.2) EU/dL 1.0 H Ur Leukocyte Esterase (Negative) Negative Urine RBC (0-2) HPF 5-10 H Urine WBC (0-5) HPF 5-10 Ur Epithelial Cells (Negative) HPF Few Urine Crystals (Negative) HPF Negative Urine Bacteria (Negative) HPF Many Urine Casts (Negative) LPF >50 hyaline Urine Mucus (Negative) Heavy Ur Culture Indicated? Yes Urine Glucose (Negative) mg/dL Negative Patient ABO/Rh O Positive Antibody Screen Positive Antibody Identification Anti-E Crossmatch See Detail ECG Data Attestation: I personally reviewed and interpreted this ECG (s) as follows: Interpretation: EKG shows sinus tachycardia 107, normal axis, low voltage in precordial leads, nondiagnostic EKG HPI General Mode of arrival: ambulatory . Date/Time Provider Initiated Documentation: 02/28/20 10:02 . Limitations to Documentation: no limitations . Information obtained by: patient, RN notes reviewed and old records reviewed . HPI Narrative: Drake Ren is a 79-year-old man with a history of hypertension, Parkinson's disease, colon cancer, liver cirrhosis, insulin- dependent diabetes presenting to the emergency department with generalized weakness. Patient reports that he was diagnosed with terminal liver cancer 01/06 and was told he had 1 to 3 months to live at that time . Per EMS patient's home health aide stated that over the past 2 days patient's ascites and jaundice have worsened significantly. Per EMS who also transported patient for visit related to fall on 02/24/20, patient did not appear jaundiced at that time and had mild ascites which has worsened significantly. Patient reports that over the past few days he has had increasing worsening generalized weakness, abdominal distention, generalized abdominal pain that patient reports is tightness, and a worsening sensation of shortness of breath with exertion. He denies any other pain, fevers, cough, shortness of breath at rest, vomiting, diarrhea, rash, numbness, focal weakness. Related Data Home Medications Medication Instructions Recorded Confirmed tramadol 50 mg tablet 25 mg PO DAILY tab 01/26/19 02/28/20 carbidopa ER 25 mg-levodopa 100 mg 2 tab PO QID #240 tab 07/27/19 02/28/20 tablet,extended release riboflavin (vitamin B2) 100 mg 100 mg PO DAILY #90 tab 01/03/20 02/28/20 tablet tamsulosin 0.4 mg capsule 0.8 mg PO DAILY #14 cap 01/26/20 02/28/20 carvedilol 3.12 mg PO DAILY 02/24/20 02/28/20 loperamide 2 mg PO QID 02/24/20 02/28/20 ondansetron HCl 4 mg PO Q8-10H 02/24/20 02/28/20 Previous Rx's Medication Instructions Recorded carbidopa ER 25 mg-levodopa 100 mg 2 tab PO QID #240 tab 07/27/19 tablet,extended release riboflavin (vitamin B2) 100 mg 100 mg PO DAILY #90 tab 01/03/20 tablet tamsulosin 0.4 mg capsule 0.8 mg PO DAILY #14 cap 01/26/20 Allergies Allergy/AdvReac Type Severity Reaction Status Date / Time leuprolide acetate Allergy Severe Swelling/Ed Verified 02/24/20 18:12 [From Lupron] isabelle adhesive Allergy Intermediate Skin Rash Verified 02/24/20 18:12 enalapril [Enalapril] AdvReac Severe Hyperkalemi Verified 02/24/20 18:12 a aspirin AdvReac Intermediate Verified 02/24/20 18:12 esomeprazole magnesium AdvReac Intermediate Diarrhea Verified 02/24/20 18:12 [From Nexium] metformin AdvReac Intermediate Diarrhea Verified 02/24/20 18:12 acetaminophen AdvReac Mild Diarrhea Verified 02/24/20 18:12 General Stated Complaint: Abd Prob SHEKHAR: 3 Review of Systems Narrative: Constitutional: denies fevers, reports generalized weakness Eyes: denies eye pain ENT: denies ear pain, dental pain, sore throat Cardiovascular: denies chest pain, edema Respiratory: denies cough, reports shortness of breath with exertion GI: denies vomiting, diarrhea, reports abdominal pain described as tightness with gradual onset with distention : denies flank pain MSK: denies back pain, neck pain, reports right leg pain since last 02/23 with fall Skin: denies rash Neuro: denies headaches, numbness, focal weakness [facility] Medical History (Updated 03/02/20 @ 15:38 by El Meyers) Anxiety Cirrhosis of liver On beta blockers; Under care of Dr. Joe. Colon cancer Multiple polypectomies. 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 Kidney stones, calcium oxalate monohydrate Liver cancer Liver cirrhosis MGUS (monoclonal gammopathy of unknown significance) Mild cognitive impairment (08/17/15) HANS (obstructive sleep apnea) Pancytopenia Thought to be secondary to liver cirrhosis and splenic sequestratioin. Please note bone marrow biopsy was negative. Parkinson disease Perirectal abscess Prostate cancer (05/24/02) S/P radiation, Lupron, now on Zoladex. 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 no bleeding. no pain. cont care. 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) Ventral hernia Visual hallucination Surgical History BONE MARROW BIOPSY (11/25/14) LISSET Colectomy 1993 colonoscopy (11/21/15) H/O ventral hernia repair History of bowel resection History of Leonid fundoplication S/P cholecystectomy S/P ear surgery Family History Maternal Cousin Colon cancer Maternal Cousin Colon cancer Mother Cervical cancer Social History Smoking/Tobacco Use Status: Former Tobacco Use Second Hand Exposure: No Smoking risk assessment performed?: Yes Alcohol Intake: current Alcohol Intake frequency: holidays/special occasions only Alcohol type: beer Drug use: Never Substance use type: does not use Household members: none Housing: apartment current occupation: Retired Seatbelt use: always Do you feel safe at home: Yes Do you feel safe in your relationship?: Yes Exam Narrative Exam Narrative: Constitutional: Chronically ill appearing, pleasant, conversing normally HENT: head atraumatic/normocephalic/normal inspection, mucous membranes moist Eyes: conjunctiva normal, scleral icterus, pupils 3mm b/l Neck: no stridor, normal ROM, trachea midline Chest: normal inspection Resp: Mild tachypnea, speaking in full sentences Cardio: normal rate, normal rhythm GI: abdomen soft, non-tender, significant distention, ecchymosis left flank area (patient states that he did not hit this area with fall on 02/23) Back: normal inspection, no rash Skin: warm, dry, jaundice present, no rash Neuro: alert, not altered, grossly non-focal, normal tone Ext: moving all extremities equally Psych: normal mood, normal affect, normal behavior Course Vital Signs Vital signs: Vital Signs Temperature 36.6 C 02/28/20 10:06 Pulse 107 H 02/28/20 10:06 Respiratory Rate 26 H 02/28/20 10:06 Blood Pressure 134/80 02/28/20 10:06 Pulse Oximetry 99 02/28/20 10:06 Temperature 36.6 C 02/28/20 10:06 Temperature Source Skin 02/28/20 10:06 Pulse 107 H 02/28/20 10:06 Respiratory Rate 26 H 02/28/20 10:06 Respiratory Effort 02/28/20 10:17 Blood Pressure 134/80 02/28/20 10:06 Blood Pressure Position Sitting 02/28/20 10:06 Pulse Oximetry 99 02/28/20 10:06 Oxygen Delivery Method Nasal Cannula 02/28/20 10:06 Oxygen Flow Rate 2 02/28/20 10:06 Pain Level 7 02/28/20 10:06 Lab/Test Results Lab/Test Results: 02/28/20 10:17 Blood Blood Culture - Pending 02/28/20 10:17 Blood Blood Culture - Pending
[2020-02-28 10:47] LABS: Ammonia 16 umol/L (11-32)
[2020-02-28 10:48] LABS: Abs Immature Grans 0.07 10^3/uL (0.0-0.06); Absolute Basophil Count 0.02 10^3/uL (0.0-0.2); Absolute Eosinophil Count 0.03 10^3/uL (0.0-0.7); Absolute Monocyte Count 0.71 10^3/uL (0.1-0.8); Absolute Neutrophil Count 6.43 10^3/uL (1.2-6.7); Basophils % 0.3; Eosinophils % 0.4; Immature Grans % 0.9; Lymphocytes % 6.4; MCH 29.9 pg (27.0-33.0); MCHC 32.5 % (32.0-36.0); MCV 92.1 fL (80-95); MPV 10.1 fL (8.0-11.0); Monocytes % 9.1; Neutrophils % 82.9; Nucleated RBC 0 %; RBC 2.14 10^6/uL (4.36-5.78); RDW 18.3 % (11.8-14.1); RDW-SD 58.3 fL; WBC 7.76 10^3/uL (4.4-10.8)
[2020-02-28 10:56] LABS: HGB 6.4 g/dL (13.5-17.5)
[2020-02-28 10:57] LABS: HCT 19.7 % (40.0-50.0)
[2020-02-28 10:58] LABS: ALT 9 U/L (16-63); AST 50 U/L (15-37); Albumin 2.4 g/dL (3.4-5.0); Alkaline Phosphatase 109 U/L (46-116); Anion Gap 7.4 mmol/L (3-11); BUN 17 mg/dL (7-18); CO2 23.6 mmol/L (21.0-32.0); CREATININE 1.27 mg/dL (0.70-1.30); Calcium 7.5 mg/dL (8.5-10.1); Chloride 102 mmol/L (98-107); Estimated GFR 54.99 (mL/min/1.73m2); Glucose 279 mg/dL (74-106); Potassium 4.2 mmol/L (3.5-5.1); Sodium 133 mmol/L (136-145); Total Protein 5.6 g/dL (6.4-8.2)
[2020-02-28 10:59] LABS: INR 1.6 (0.9-1.1); Prothrombin Time 15.7 sec (9.3-11.0)
[2020-02-28 11:00] LABS: Platelet Count 120 10^3/uL (130-400)
[2020-02-28 11:00] LABS: Lactate 3.9 mmol/L (0.6-1.4)
[2020-02-28 11:01] LABS: Anisocytosis 2+; Diff Comment RBC Morph Reviewed; Macrocytosis 1+; Ovalocytes 2+; Polychromasia Present
[2020-02-28 11:17] LABS: Bilirubin Moderate (Negative); Blood Trace-lysed (Negative); Clarity Sl Cloudy (Clear); Glucose Negative (Negative); Ketones Trace mg/dL (Negative); Leukocyte Esterase Negative (Negative); Specific Gravity 1.025 (1.005-1.025); pH 5.5 (5-8)
--- NOTE | 2020-02-28 11:30 | DI.CT_ITS ---
EXAM: CT ABDOMEN PELVIS W CLINICAL HISTORY: new abdominal distention, pain. TECHNIQUE: Imaging Protocol: Axial computed tomography images with coronal and sagittal reformatted images were created and reviewed CONTRAST MATERIAL: Intravenous: Omnipaque 100cc Oral: None COMPARISON: CT CT RENAL COLIC WO from 01/23/2020 FINDINGS: VISUALIZED LUNG BASES: No nodules nor pleural effusions evident. ABDOMEN: Again noted is a large amount ascites in the abdomen and pelvis which has slightly further increased. In addition, there is some hyperdense material in the right flank ascites which may be clot. LIVER: Liver is again noted be cirrhotic in appearance. Relatively hypodense area in the inferior ri ght hepatic lobe is noted the, this measuring approximately 5 x 6 centimetres. Possibly neoplastic. GALLBLADDER/BILIARY: Gallbladder is again noted be surgically absent. CBD is not dilated. PANCREAS: No evidence of pancreatic mass nor dilatation of the pancreatic duct. SPLEEN: Spleen size is unchanged, with some splenomegaly evident splenic and portal veins are patent. ADRENALS: There are no significant adrenal masses. KIDNEYS:There is a prominent parapelvic cyst in the right kidney again noted which measures approxima tely 5 by 3.2 centimetres. Smaller benign cysts are noted in the opposite-left kidney. No solid amanda al masses. There are no obvious calculi in the kidneys at this time. There is no hydronephrosis nor hydroureter on either side. No calculi in the urinary bladder. Metallic density is again noted int erposed between the posterior wall of the bladder and the nonenlarged prostate. ABDOMINAL AORTA: Abdominal aorta is not enlarged and there is no argrxwimtwhkswc-wvko-hicoqy adenopat hy. ABDOMINAL WALL/GI: The previously described left of center anterior abdominal wall hernia is again no lavell which contains some fluid no bowel loops therein. No bowel obstruction. PELVIS: GI: Again noted is evidence of right hemicolectomy.No bowel obstruction. LYMPH NODES: There is no intrapelvic nor inguinal adenopathy. REPRODUCTIVE: Prostate gland is not enlarged. URINARY BLADDER: No obvious calculi evident within the nondistended bladder at this time. OSSEOUS: Compression fracture of L3 superior endplate is again noted, unchanged. IMPRESSION: 1. Compared to the prior CT scan of 01/23/2020 there is again noted a massive amount of ascites which is slightly further increased. Some of the fluid is again noted to be extending into left of center anterior abdominal wall hernia sac which appears unchanged and does not contain bowel loops therein. There is no bowel obstruction nor free air. A possible concern here is the appearance of the ascit es in the right flank which contain some hyperdense material at this time, not previously present. T his may represent some clot/clotted blood. 2. Liver appears cirrhotic and there is a subtle suggestion of a non-cystic mass in the right hepatic lobe. Possibility of hepatoma is to be considered. 3. Gallbladder is again noted be surgically absent. Biliary tree is not dilated. 4. There presently no renal calculi evident and no hydronephrosis. Parapelvic cyst in the right kidn ey is again noted. Small cortical cysts noted bilaterally. No solid renal lesions evident. RADIATION DOSE DELIVERED: 1,450.9mGy.cm Total DLP DATA REPOSITORY: All CT scans at this facility are submitted to the National Radiology Data Registry (NRDR) Dose Index Registry (DIR) with the [employer] (ACR). RADIATION OPTIMIZATION: All CT scans at this facility use at least one of these dose optimization te chniques: automated exposure control; mA and/or kV adjustment per patient size (includes targeted exa ms where dose is matched to clinical indication); or iterative reconstruction.
[2020-02-28 11:35] LABS: Bacteria Many HPF (Negative); C & S Indicated? Yes; Crystals Negative HPF (Negative); Epithelial Cells Few HPF (Negative); Mucus Heavy (Negative)
[2020-02-28 11:56] LABS: Nitrite Color Interference (Negative)
[2020-02-28] MEDS: Omnipaque 350 MG/ML 100 ML BTL IJ (12:39)
[2020-02-28 12:48] LABS: NT-proBNP 335 pg/mL (<300)
[2020-02-28 12:49] LABS: Troponin I < 0.05 ng/mL (<0.06)
[2020-02-28] MEDS: Normal Saline 250 ML 500 ML IV (13:02)
[2020-02-28] MEDS: cefTRIAXone 1 GM/50 ML BAG IVPB (13:03)
--- NOTE | 2020-02-28 14:15 | W.SURGCON ---
Date of service: 02/28/20 Time of Service: 14:15 Assessment and Plan Assessment and plan (1) Hemorrhagic ascites: Status: Acute Assessment and plan: Cannot get a large volume of fluid off because of adjacent bowel and adhesions from mult prior surgeries. Pt wishes paliative care. Dx of etiol of the bleed could possibly be done with cta and rx with embolization if needed but contrary to the pts wishes History of Present Illness History of Present Illness Chief Complaint: ascites with hypodense material Narrative: Drake Ren is a 79-year-old man with history of hypertension, Parkinson's disease, colon cancer, liver cirrhosis, insulin-dependent diabetes, recently diagnosed with terminal liver cancer who presented to the emergency department with generalized weakness over the past 2 days, worsening abdominal distention over the past few days, new jaundice, shortness of breath. On exam patient appears chronically ill. Mildly tachypneic but able to speak in full sentences. Ct of the abd done in ER showed an increased volume of ascites and some hypodense material in the right gutter. Pts hematocrit has fallen since last er visit [facility] Medical History Anxiety Cirrhosis of liver On beta blockers; Under care of Dr. Joe. Colon cancer Multiple polypectomies. 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 Kidney stones, calcium oxalate monohydrate Liver cirrhosis MGUS (monoclonal gammopathy of unknown significance) Mild cognitive impairment (08/17/15) HANS (obstructive sleep apnea) Pancytopenia Thought to be secondary to liver cirrhosis and splenic sequestratioin. Please note bone marrow biopsy was negative. Parkinson disease Perirectal abscess Prostate cancer (05/24/02) S/P radiation, Lupron, now on Zoladex. 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 no bleeding. no pain. cont care. 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) Ventral hernia Visual hallucination Surgical History BONE MARROW BIOPSY (11/25/14) HellenROSALIOJULIANO Colectomy 1993 colonoscopy (11/21/15) H/O ventral hernia repair History of bowel resection History of Leonid fundoplication S/P cholecystectomy S/P ear surgery Family History Maternal Cousin Colon cancer Maternal Cousin Colon cancer Mother Cervical cancer Social History Smoking/Tobacco Use Status: Former Tobacco Use Second Hand Exposure: No Smoking risk assessment performed?: Yes Alcohol Intake: current Alcohol Intake frequency: holidays/special occasions only Alcohol type: beer Drug use: Never Substance use type: does not use Household members: none Housing: apartment current occupation: Retired Seatbelt use: always Do you feel safe at home: Yes Do you feel safe in your relationship?: Yes Exam GI Other: Significant abdominal distention without tenderness to palpation. Midline surgical scar from multiple prior surgery. Sono done in er showed some fluid in both rlq and llq but adjacent bowel loops. Results Last Vital Signs Temp 97.9 F 02/28/20 14:08 Pulse 86 02/28/20 14:08 Resp 21 02/28/20 14:10 BP 157/66 H 02/28/20 14:08 Pulse Ox 100 02/28/20 14:10 Labs Result diagrams: 02/28/20 10:30 02/28/20 10:30 Labs: Laboratory Results - last 24 hr 02/28/20 02/28/20 02/28/20 10:30 10:30 10:30 WBC 7.76 RBC 2.14 L Hgb 6.4 L* Hct 19.7 L* MCV 92.1 MCH 29.9 MCHC 32.5 RDW 18.3 H Plt Count 120 L MPV 10.1 Immature Gran % 0.9 Neutrophils % 82.9 Lymphocytes % 6.4 Monocytes % 9.1 Eosinophils % 0.4 Basophils % 0.3 Nucleated RBC % 0 Absolute Neutrophils 6.43 Absolute Lymphocytes 0.50 L Absolute Monocytes 0.71 Absolute Eosinophils 0.03 Absolute Basophils 0.02 RBC Morphology See below Polychromasia Present Anisocytosis 2+ Macrocytosis 1+ Ovalocytes 2+ PT INR VBG Lactate Sodium 133 L Potassium 4.2 Chloride 102 Carbon Dioxide 23.6 Anion Gap 7.4 BUN 17 Creatinine 1.27 Estimated GFR/1.73 m2 54.99 Glucose 279 H Calcium 7.5 L Total Bilirubin 4.0 H AST 50 H ALT 9 L Alkaline Phosphatase 109 Ammonia 16 Troponin I NT-Pro-B Natriuret Pep Total Protein 5.6 L Albumin 2.4 L Urine Color Urine Clarity Urine pH Ur Specific [place] Urine Protein Urine Ketones Urine Blood Urine Nitrite Urine Bilirubin Urine Urobilinogen Ur Leukocyte Esterase Urine RBC Urine WBC Ur Epithelial Cells Urine Crystals Urine Bacteria Urine Casts Urine Mucus Ur Culture Indicated? Urine Glucose Patient ABO/Rh Antibody Screen Antibody Identification Crossmatch 02/28/20 02/28/20 02/28/20 10:30 10:30 10:45 WBC RBC Hgb Hct MCV MCH MCHC RDW Plt Count MPV Immature Gran % Neutrophils % Lymphocytes % Monocytes % Eosinophils % Basophils % Nucleated RBC % Absolute Neutrophils Absolute Lymphocytes Absolute Monocytes Absolute Eosinophils Absolute Basophils RBC Morphology Polychromasia Anisocytosis Macrocytosis Ovalocytes PT 15.7 H INR 1.6 H VBG Lactate 3.9 H* Sodium Potassium Chloride Carbon Dioxide Anion Gap BUN Creatinine Estimated GFR/1.73 m2 Glucose Calcium Total Bilirubin AST ALT Alkaline Phosphatase Ammonia Troponin I < 0.05 NT-Pro-B Natriuret Pep 335 H Total Protein Albumin Urine Color Urine Clarity Urine pH Ur Specific [place] Urine Protein Urine Ketones Urine Blood Urine Nitrite Urine Bilirubin Urine Urobilinogen Ur Leukocyte Esterase Urine RBC Urine WBC Ur Epithelial Cells Urine Crystals Urine Bacteria Urine Casts Urine Mucus Ur Culture Indicated? Urine Glucose Patient ABO/Rh Antibody Screen Antibody Identification Crossmatch 02/28/20 02/28/20 11:05 11:35 WBC RBC Hgb Hct MCV MCH MCHC RDW Plt Count MPV Immature Gran % Neutrophils % Lymphocytes % Monocytes % Eosinophils % Basophils % Nucleated RBC % Absolute Neutrophils Absolute Lymphocytes Absolute Monocytes Absolute Eosinophils Absolute Basophils RBC Morphology Polychromasia Anisocytosis Macrocytosis Ovalocytes PT INR VBG Lactate Sodium Potassium Chloride Carbon Dioxide Anion Gap BUN Creatinine Estimated GFR/1.73 m2 Glucose Calcium Total Bilirubin AST ALT Alkaline Phosphatase Ammonia Troponin I NT-Pro-B Natriuret Pep Total Protein Albumin Urine Color Urine Clarity Sl cloudy Urine pH 5.5 Ur Specific [place] 1.025 Urine Protein 30 H Urine Ketones Trace H Urine Blood Trace-lysed H Urine Nitrite Color interference Urine Bilirubin Moderate H Urine Urobilinogen 1.0 H Ur Leukocyte Esterase Negative Urine RBC 5-10 H Urine WBC 5-10 Ur Epithelial Cells Few Urine Crystals Negative Urine Bacteria Many Urine Casts >50 hyaline Urine Mucus Heavy Ur Culture Indicated? Yes Urine Glucose Negative Patient ABO/Rh O Positive Antibody Screen Positive Antibody Identification Anti-E Crossmatch See Detail Procedures Paracentesis Local anesthetic used: lidocaine 1% Bedside ultrasound used: yes, Ascites confirmed and location marked Amount of fluid obtained (ml): 5 Fluid: bloody Size of needle used: 22
[2020-02-28 15:51] LABS: Troponin I < 0.05 ng/mL (<0.06)
--- NOTE | 2020-02-28 16:06 | HPE_ITS ---
Date of service: 02/28/20 Time of Service: 16:06 Assessment and Plan Assessment and plan (1) Comfort measures only status: Start date: 02/28/20 Start time: 16:26 Status: Acute Assessment and plan: Terminal liver ca now bleeding with ascitis. He likely has days to live. 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 He is on morphine infusion with ativan for breathing, scopolamine, and antiemtics. above case discussed with Dr. Meyers who is in agreement. History of Present Illness History of Present Illness Chief Complaint: Hemorrhagic ascities, TEMPORARY OFFICE ASSISTANT, terminal cancer Narrative: This is a 79 y.o male with PMH of hypertension, Parkinson's disease, colon cancer, liver cirrhosis, insulin-dependent diabetes, recently diagnosed with terminal liver cancer who presented to the emergency department with generalized weakness over the past 2 days, worsening abdominal distention over the past few days, new jaundice, and shortness of breath. ED labs remarkable for h/h 6.4/19.7, Sodium 133, BNP 335. Imaging in the ED revealing significant increase in ascites with material in right flank fluid concerning for blood. Patient refused transfer under any circumstances, he is likely bleeding from his liver. Dr. Yeung attempted to paracentesis under us with only approx 1 cc bloody fluid he was unable to obtain theraputic paracentesis due to bleeding. Therefore he has been asked to be admitted to m/s for further management. I spoke with Drake upon arrival to the floor. He knows he is dying. He asks how long, I told him I could not give him and exact time though because he is bleeding it will likely be soon. We spoke about comfort measures and hospice. He does not have any family in the [place] he states all his family is in [place]. He was AAOx 3 during conversation. We spoke about him being comfortable and stopping all measures of treatment except to make him comfortable. He was agreeable. His only request is that his oldest daughter he can see in person before he dies and that his at [facility] re[facility] does not get the news paper after he passes because he does not want her to know that he passed. I told him that I will start the TEMPORARY OFFICE ASSISTANT process and consult palliative to see if we can make his wishes come true. He was placed on morphine drip, with nausea medication and ativan for his breathing. Review of Systems All systems reviewed & are unremarkable except as noted in HPI and below PFS Medical History Anxiety Cirrhosis of liver On beta blockers; Under care of Dr. Joe. Colon cancer Multiple polypectomies. 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 Kidney stones, calcium oxalate monohydrate Liver cirrhosis MGUS (monoclonal gammopathy of unknown significance) Mild cognitive impairment (08/17/15) HANS (obstructive sleep apnea) Pancytopenia Thought to be secondary to liver cirrhosis and splenic sequestratioin. Please note bone marrow biopsy was negative. Parkinson disease Perirectal abscess Prostate cancer (05/24/02) S/P radiation, Lupron, now on Zoladex. 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 no bleeding. no pain. cont care. 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) Ventral hernia Visual hallucination Surgical History BONE MARROW BIOPSY (11/25/14) LISSET Colectomy 1992 colonoscopy (11/21/15) H/O ventral hernia repair History of bowel resection History of Leonid fundoplication S/P cholecystectomy S/P ear surgery Family History Maternal Cousin Colon cancer Maternal Cousin Colon cancer Mother Cervical cancer Social History Smoking/Tobacco Use Status: Former Tobacco Use Second Hand Exposure: No Smoking risk assessment performed?: Yes Alcohol Intake: current Alcohol Intake frequency: holidays/special occasions only Alcohol type: beer Drug use: Never Substance use type: does not use Household members: none Housing: apartment current occupation: Retired Seatbelt use: always Do you feel safe at home: Yes Do you feel safe in your relationship?: Yes Meds Home Medications and Allergies Home Medications Medication Instructions Recorded Confirmed Type tramadol 50 mg tablet 25 mg PO DAILY tab 01/26/19 02/28/20 History carbidopa ER 25 mg-levodopa 100 mg 2 tab PO QID #240 tab 07/27/19 02/28/20 Rx tablet,extended release riboflavin (vitamin B2) 100 mg 100 mg PO DAILY #90 tab 01/03/20 02/28/20 Rx tablet tamsulosin 0.4 mg capsule 0.8 mg PO DAILY #14 cap 01/26/20 02/28/20 Rx carvedilol 3.12 mg PO DAILY 02/24/20 02/28/20 History loperamide 2 mg PO QID 02/24/20 02/28/20 History ondansetron HCl 4 mg PO Q8-10H 02/24/20 02/28/20 History Allergies Allergy/AdvReac Type Severity Reaction Status Date / Time leuprolide acetate Allergy Severe Swelling/Ed Verified 02/24/20 18:12 [From Lupron] isabelle adhesive Allergy Intermediate Skin Rash Verified 02/24/20 18:12 enalapril [Enalapril] AdvReac Severe Hyperkalemi Verified 02/24/20 18:12 a aspirin AdvReac Intermediate Verified 02/24/20 18:12 esomeprazole magnesium AdvReac Intermediate Diarrhea Verified 02/24/20 18:12 [From Nexium] metformin AdvReac Intermediate Diarrhea Verified 02/24/20 18:12 acetaminophen AdvReac Mild Diarrhea Verified 02/24/20 18:12 Exam Narrative Exam Narrative: Elderly gentlemen that is pale and appears very ill. He is SOB with talking. He is having pain in his legs, his abd is swollen. He appears slightly jaundice. He has been made TEMPORARY OFFICE ASSISTANT as he is terminal. Results Labs Result diagrams: 02/28/20 10:30 02/28/20 10:30 Labs: Laboratory Results - last 24 hr 02/28/20 02/28/20 02/28/20 10:30 10:30 10:30 WBC 7.76 RBC 2.14 L Hgb 6.4 L* Hct 19.7 L* MCV 92.1 MCH 29.9 MCHC 32.5 RDW 18.3 H Plt Count 120 L MPV 10.1 Immature Gran % 0.9 Neutrophils % 82.9 Lymphocytes % 6.4 Monocytes % 9.1 Eosinophils % 0.4 Basophils % 0.3 Nucleated RBC % 0 Absolute Neutrophils 6.43 Absolute Lymphocytes 0.50 L Absolute Monocytes 0.71 Absolute Eosinophils 0.03 Absolute Basophils 0.02 RBC Morphology See below Polychromasia Present Anisocytosis 2+ Macrocytosis 1+ Ovalocytes 2+ PT INR VBG Lactate Sodium 133 L Potassium 4.2 Chloride 102 Carbon Dioxide 23.6 Anion Gap 7.4 BUN 17 Creatinine 1.27 Estimated GFR/1.73 m2 54.99 Glucose 279 H Calcium 7.5 L Total Bilirubin 4.0 H AST 50 H ALT 9 L Alkaline Phosphatase 109 Ammonia 16 Troponin I NT-Pro-B Natriuret Pep Total Protein 5.6 L Albumin 2.4 L Urine Color Urine Clarity Urine pH Ur Specific [place] Urine Protein Urine Ketones Urine Blood Urine Nitrite Urine Bilirubin Urine Urobilinogen Ur Leukocyte Esterase Urine RBC Urine WBC Ur Epithelial Cells Urine Crystals Urine Bacteria Urine Casts Urine Mucus Ur Culture Indicated? Urine Glucose Patient ABO/Rh Antibody Screen Antibody Identification Crossmatch 02/28/20 02/28/20 02/28/20 10:30 10:30 10:45 WBC RBC Hgb Hct MCV MCH MCHC RDW Plt Count MPV Immature Gran % Neutrophils % Lymphocytes % Monocytes % Eosinophils % Basophils % Nucleated RBC % Absolute Neutrophils Absolute Lymphocytes Absolute Monocytes Absolute Eosinophils Absolute Basophils RBC Morphology Polychromasia Anisocytosis Macrocytosis Ovalocytes PT 15.7 H INR 1.6 H VBG Lactate 3.9 H* Sodium Potassium Chloride Carbon Dioxide Anion Gap BUN Creatinine Estimated GFR/1.73 m2 Glucose Calcium Total Bilirubin AST ALT Alkaline Phosphatase Ammonia Troponin I < 0.05 NT-Pro-B Natriuret Pep 335 H Total Protein Albumin Urine Color Urine Clarity Urine pH Ur Specific [place] Urine Protein Urine Ketones Urine Blood Urine Nitrite Urine Bilirubin Urine Urobilinogen Ur Leukocyte Esterase Urine RBC Urine WBC Ur Epithelial Cells Urine Crystals Urine Bacteria Urine Casts Urine Mucus Ur Culture Indicated? Urine Glucose Patient ABO/Rh Antibody Screen Antibody Identification Crossmatch 02/28/20 02/28/20 02/28/20 11:05 11:35 15:20 WBC RBC Hgb Hct MCV MCH MCHC RDW Plt Count MPV Immature Gran % Neutrophils % Lymphocytes % Monocytes % Eosinophils % Basophils % Nucleated RBC % Absolute Neutrophils Absolute Lymphocytes Absolute Monocytes Absolute Eosinophils Absolute Basophils RBC Morphology Polychromasia Anisocytosis Macrocytosis Ovalocytes PT INR VBG Lactate Sodium Potassium Chloride Carbon Dioxide Anion Gap BUN Creatinine Estimated GFR/1.73 m2 Glucose Calcium Total Bilirubin AST ALT Alkaline Phosphatase Ammonia Troponin I < 0.05 NT-Pro-B Natriuret Pep Total Protein Albumin Urine Color Urine Clarity Sl cloudy Urine pH 5.5 Ur Specific [place] 1.025 Urine Protein 30 H Urine Ketones Trace H Urine Blood Trace-lysed H Urine Nitrite Color interference Urine Bilirubin Moderate H Urine Urobilinogen 1.0 H Ur Leukocyte Esterase Negative Urine RBC 5-10 H Urine WBC 5-10 Ur Epithelial Cells Few Urine Crystals Negative Urine Bacteria Many Urine Casts >50 hyaline Urine Mucus Heavy Ur Culture Indicated? Yes Urine Glucose Negative Patient ABO/Rh O Positive Antibody Screen Positive Antibody Identification Anti-E Crossmatch See Detail Last Vital Signs Temp 37.2 C 02/28/20 15:13 Pulse 74 02/28/20 15:13 Resp 24 02/28/20 15:13 BP 153/69 H 02/28/20 15:13 Pulse Ox 100 02/28/20 15:13 COVID-19 Screening Have you, or household traveled for leisure in last 14 days?: No Had IN PERSON contact w/suspected or confirmed C-19 person: No
[2020-02-28] MEDS: Scopolamine 1 MG/3 DAYS PATCH TD (16:29)
[2020-02-28] MEDS: MORPHine 250 MG in Normal Saline 245 ML IV (17:25)
[2020-02-28] MEDS: Normal Saline Flush 10 ML SYR IVP (17:29)
--- NOTE | 2020-02-28 17:43 | INITIAL_ITS ---
- If Service Date Differs Date of service: 02/28/20 Time of Service: 17:54 Care Management Initial Assess REASON FOR HOSPITALIZATION:: Intraperitoneal bleeding. PAST MEDICAL HISTORY/PAST SURGICAL HISTORY:: Anxiety, Cirrhosis of liver, On beta blockers; Under care of Dr. Joe. Colon cancer Multiple polypectomies. DM (diabetes mellitus). Esophageal varices (Chronic). GERD. Hearing loss secondary to scarlet fever. HTN . Hyperlipidemia. IBS, Iron deficiency, CBcs and VBenofer on a regular basis. Liver cirrhosis. MGUS. Mild cognitive impairment. HANS. Pancytopenia (Chronic). Thought to be secondary to liver cirrhosis and splenic sequestratioin. Please note bone marrow biopsy was negative. Parkinson disease. Perirectal abscess (Resolved). Prostate cancer- S/P radiation, Lupron, now on Zoladex. Restless leg syndrome. Streptococcal bacteremia. s/p removal of buried central venous access device. no bleeding. no pain. cont care. Ventral hernia. BONE MARROW BIOPSY (11/25/14). LISSET. Colectomy. 1992. colonoscopy, ventral hernia repair, bowel resection, Leonid fundoplicationcholecystectomy, ear surgery PREVIOUS FUNCTIONAL STATUS/SOCIAL/FAMILY SUPPORTS:: Drake lives at the [facility] alone. His , Gregoria is a resident at [facility] and he visits her regularly. He has a daughter Annabelle, and a step daughter Nara who are both identified as supports. He does not drive, and relys on [facility] for transportation. CURRENT FUNCTIONAL STATUS:: Per provider, Drake has terminal liver cancer, now bleeding with ascitis. He likely has days to live. He has been made comfort me asures status, palliative consulted to try to carry out patient goals of dying. He is on morphine infusion with ativan for breathing, scopolamine, and antiemtics. ADVANCE DIRECTIVES:: On file, Annabelle, daughter, listed as agent. Nara, step daughter, listed as alternate agent. Has patient been provided with info about the portal/API?: Yes Did the patient sign up for the portal?: No CODE STATUS:: DNR/DNI INSURANCE COVERAGE / FINANCIAL ISSUES:: [facility] HMO/[employer], Plan J/Fin Assist 100% CURRENT HOME/COMMUNITY SERVICES/EQUIPMENT:: Drake lives at the [facility], where there is a meal site. He relys on [facility] for transportation. He has a homemaker through [facility] moderate needs. He also owns a CPAP, wheelchair, motorized wheelchair, FWW, raised toilet seat, and shower chair. PRIMARY CARE PHYSICIAN:: Joanne Riggins POTENTIAL DISCHARGE NEEDS:: Palliative consult, end of life care coordination, patient and family support. PATIENT/FAMILY EDUCATION NEEDS:: Review discharge instructions, discussion of self care needs, discuss Ask Me Three. ANTICIPATED BARRIERS TO DISCHARGE:: None identified at this time. TRANSPORTATION:: [facility] transportation, coordinated by CM PLAN:: Per provider, Drake has terminal liver cancer, now bleeding with ascitis. He likely has days to live. He has been made comfort measures status, palliative consulted to try to carry out patient goals of dying. He is on morphine infusion with ativan for breathing, scopolamine, and antiemtics. He has voiced wanting to see his daughter, he has an order for comfort measures- awaiting Palliative consultation.
--- NOTE | 2020-02-28 20:36 | W.PALLCONSUL ---
Date of service: 02/28/20 Time of Service: 18:36 History of Present Illness Narrative: Drake is a 79-year-old man with severe liver cancer. He came into the ER twice in the last week. I was contacted by Rachelle Moon MD who stated that he had a hemoglobin of 6, massive ascites. I will schedule to see him this evening. Since his ER time, he was admitted to the hospitalist service. Denis Nava NP had already seen and examined him. He had received a unit of blood. 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 He was presently on a morphine drip. He again reiterated that he did not want his to know about his impending . He said that his pain was much better. He understands that he is dying. He would like to hold off until March 13 so that he can celebrate his birthday and that of his daughters. He was very happy with his care. He would like to see our composing room machinist apprentice, Rafaela Garcia Consults Consult date: 02/28/20 Requesting physician: Rachelle Moon Assessment and Plan Assessment and plan (1) Hemorrhagic ascites: Status: Acute (2) Palliative care patient: Status: Acute Assessment and plan: Drake would like to see our composing room machinist apprentice, Rafaela Lam. I have put the referral in His preference would be to live until03/13 so he would be alive for his daughter's and his birthday. He understands this most likely will not happen. His pain is well controlled at this point. He would like Tomas Nathan to be able to see him. His relatives are all from [place] and cannot come because of Covid. I have spoken with nursing and they will be sure that she will be able to visit him since he is comfort measures only I did let him know that Dr. Gonsalez would be coming tomorrow. He loves Dr. Gonsalez and has had a long-term relationship with her. (3) DNR (do not resuscitate): Status: Acute Review of Systems Narrative: He said at this time his pain is well controlled. His belly does hurt especially with distention. He is tired but enjoyed talking. [facility] Medical History Anxiety Cirrhosis of liver On beta blockers; Under care of Dr. Joe. Colon cancer Multiple polypectomies. 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 Kidney stones, calcium oxalate monohydrate Liver cirrhosis MGUS (monoclonal gammopathy of unknown significance) Mild cognitive impairment (08/17/15) HANS (obstructive sleep apnea) Pancytopenia Thought to be secondary to liver cirrhosis and splenic sequestratioin. Please note bone marrow biopsy was negative. Parkinson disease Perirectal abscess Prostate cancer (05/24/02) S/P radiation, Lupron, now on Zoladex. 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 no bleeding. no pain. cont care. 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) Ventral hernia Visual hallucination Surgical History BONE MARROW BIOPSY (11/25/14) LISSET Colectomy 1993 colonoscopy (11/21/15) H/O ventral hernia repair History of bowel resection History of Leonid fundoplication S/P cholecystectomy S/P ear surgery Family History Maternal Cousin Colon cancer Maternal Cousin Colon cancer Mother Cervical cancer Social History Smoking/Tobacco Use Status: Former Tobacco Use Second Hand Exposure: No Smoking risk assessment performed?: Yes Alcohol Intake: current Alcohol Intake frequency: holidays/special occasions only Alcohol type: beer Drug use: Never Substance use type: does not use Household members: none Housing: apartment current occupation: Retired Seatbelt use: always Do you feel safe at home: Yes Do you feel safe in your relationship?: Yes Exam Narrative Exam Narrative: Drake is lying in bed but readily sits up when I ask him to to examine him. His belly is tense but has good bowel sounds. His heart is regular. There is very little lung sounds today probably from pushing up on the ascites. His mood is full. His comprehension is adequate, and he has good capacity to make decisions. Results Last Vital Signs Temp 98.6 F 02/28/20 16:35 Pulse 82 02/28/20 16:35 Resp 20 02/28/20 16:35 BP 153/78 H 02/28/20 16:35 Pulse Ox 99 02/28/20 16:35 Labs Result diagrams: 02/28/20 10:30 02/28/20 10:30 Labs: Laboratory Results - last 24 hr 02/28/20 02/28/20 02/28/20 10:30 10:30 10:30 WBC 7.76 RBC 2.14 L Hgb 6.4 L* Hct 19.7 L* MCV 92.1 MCH 29.9 MCHC 32.5 RDW 18.3 H Plt Count 120 L MPV 10.1 Immature Gran % 0.9 Neutrophils % 82.9 Lymphocytes % 6.4 Monocytes % 9.1 Eosinophils % 0.4 Basophils % 0.3 Nucleated RBC % 0 Absolute Neutrophils 6.43 Absolute Lymphocytes 0.50 L Absolute Monocytes 0.71 Absolute Eosinophils 0.03 Absolute Basophils 0.02 RBC Morphology See below Polychromasia Present Anisocytosis 2+ Macrocytosis 1+ Ovalocytes 2+ PT INR VBG Lactate Sodium 133 L Potassium 4.2 Chloride 102 Carbon Dioxide 23.6 Anion Gap 7.4 BUN 17 Creatinine 1.27 Estimated GFR/1.73 m2 54.99 Glucose 279 H Calcium 7.5 L Total Bilirubin 4.0 H AST 50 H ALT 9 L Alkaline Phosphatase 109 Ammonia 16 Troponin I NT-Pro-B Natriuret Pep Total Protein 5.6 L Albumin 2.4 L Urine Color Urine Clarity Urine pH Ur Specific [place] Urine Protein Urine Ketones Urine Blood Urine Nitrite Urine Bilirubin Urine Urobilinogen Ur Leukocyte Esterase Urine RBC Urine WBC Ur Epithelial Cells Urine Crystals Urine Bacteria Urine Casts Urine Mucus Ur Culture Indicated? Urine Glucose Patient ABO/Rh Antibody Screen Antibody Identification Crossmatch 02/28/20 02/28/20 02/28/20 10:30 10:30 10:45 WBC RBC Hgb Hct MCV MCH MCHC RDW Plt Count MPV Immature Gran % Neutrophils % Lymphocytes % Monocytes % Eosinophils % Basophils % Nucleated RBC % Absolute Neutrophils Absolute Lymphocytes Absolute Monocytes Absolute Eosinophils Absolute Basophils RBC Morphology Polychromasia Anisocytosis Macrocytosis Ovalocytes PT 15.7 H INR 1.6 H VBG Lactate 3.9 H* Sodium Potassium Chloride Carbon Dioxide Anion Gap BUN Creatinine Estimated GFR/1.73 m2 Glucose Calcium Total Bilirubin AST ALT Alkaline Phosphatase Ammonia Troponin I < 0.05 NT-Pro-B Natriuret Pep 335 H Total Protein Albumin Urine Color Urine Clarity Urine pH Ur Specific [place] Urine Protein Urine Ketones Urine Blood Urine Nitrite Urine Bilirubin Urine Urobilinogen Ur Leukocyte Esterase Urine RBC Urine WBC Ur Epithelial Cells Urine Crystals Urine Bacteria Urine Casts Urine Mucus Ur Culture Indicated? Urine Glucose Patient ABO/Rh Antibody Screen Antibody Identification Crossmatch 02/28/20 02/28/20 02/28/20 11:05 11:35 15:20 WBC RBC Hgb Hct MCV MCH MCHC RDW Plt Count MPV Immature Gran % Neutrophils % Lymphocytes % Monocytes % Eosinophils % Basophils % Nucleated RBC % Absolute Neutrophils Absolute Lymphocytes Absolute Monocytes Absolute Eosinophils Absolute Basophils RBC Morphology Polychromasia Anisocytosis Macrocytosis Ovalocytes PT INR VBG Lactate Sodium Potassium Chloride Carbon Dioxide Anion Gap BUN Creatinine Estimated GFR/1.73 m2 Glucose Calcium Total Bilirubin AST ALT Alkaline Phosphatase Ammonia Troponin I < 0.05 NT-Pro-B Natriuret Pep Total Protein Albumin Urine Color Urine Clarity Sl cloudy Urine pH 5.5 Ur Specific [place] 1.025 Urine Protein 30 H Urine Ketones Trace H Urine Blood Trace-lysed H Urine Nitrite Color interference Urine Bilirubin Moderate H Urine Urobilinogen 1.0 H Ur Leukocyte Esterase Negative Urine RBC 5-10 H Urine WBC 5-10 Ur Epithelial Cells Few Urine Crystals Negative Urine Bacteria Many Urine Casts >50 hyaline Urine Mucus Heavy Ur Culture Indicated? Yes Urine Glucose Negative Patient ABO/Rh O Positive Antibody Screen Positive Antibody Identification Anti-E Crossmatch See Detail
[2020-02-29 00:13] LABS: COVID-19 RT-PCR UVMMC Result Negative (Negative)
[2020-02-29] MEDS: Docusate Sodium 100 MG CAP PO (08:14)
--- NOTE | 2020-02-29 09:21 | CMPROGNOTE_ITS ---
- If Service Date Differs Date of service: 02/29/20 Time of Service: 09:21 Care Management Progress Note S/O: Drake remains on comfort care and has a morphine drip infusing. He appears calm and comfortable and slept much of the day. A: Drake is a 79 year old man admitted on 02/28/20 for hospice and end of life care P:Drake has terminal liver cancer, now bleeding with ascitis. He likely has days to live, per provider. He has been made comfort measures status, palliative consulted to try to carry out patient goals of dying. Drake remains on morphine infusion with prn ativan , scopolamine, and antiemtics for symptom management. He will remain at [facility] for end of life care. will continue to support Drake and his family through this difficult time.
[2020-02-29 11:22] VITALS: BP 153/78; PULSE 82; RESP 20; TEMP 37; O2SAT 99
--- NOTE | 2020-02-29 12:09 | PHACLINREV_ITS ---
Pharmacy Admission Review - Admission Clinical Review (Last Reviewed 02/28/20 @ 16:18 by Anabelle Tinoco NP) DNR (do not resuscitate) (Acute) Palliative care patient (Acute) Comfort measures only status (Acute) Hemorrhagic ascites (Acute) leuprolide acetate [From Lupron] Allergy (Severe, Verified 02/24/20 18:12) Swelling/Edema adhesive Allergy (Intermediate, Verified 02/24/20 18:12) Skin Rash enalapril [Enalapril] Adverse Reaction (Severe, Verified 02/24/20 18:12) Hyperkalemia aspirin Adverse Reaction (Intermediate, Verified 02/24/20 18:12) esomeprazole magnesium [From Nexium] Adverse Reaction (Intermediate, Verified 02/24/20 18:12) Diarrhea metformin Adverse Reaction (Intermediate, Verified 02/24/20 18:12) Diarrhea acetaminophen Adverse Reaction (Mild, Verified 02/24/20 18:12) Diarrhea Height 5 ft 8 in Weight 90.718 kg - Renal Dosing Renal Dosing: BUN 17 mg/dL (7-18) 02/28/20 10:30 Creatinine 1.27 mg/dL (0.70-1.30) 02/28/20 10:30 Medications needing adjustments: Reviewed (Crcl ~53.3 mL/min current meds okay.) - Anticoagulation Anticoagulation: Hgb 6.4 g/dL (13.5-17.5) L* 02/28/20 10:30 Hct 19.7 % (40.0-50.0) L* 02/28/20 10:30 Plt Count 120 10^3/uL (130-400) L 02/28/20 10:30 INR 1.6 (0.9-1.1) H 02/28/20 10:30 Creatinine 1.27 mg/dL (0.70-1.30) 02/28/20 10:30 DVT Prohphylaxis: N/A (DOCUMENT PREPARATION SPECIALIST/intraperitoneal bleed) Therapeutic Anticoagulation: N/A - Opiate Usage Evaluate Pain Scale/Pains Meds: Reviewed Scheduled Bowel Reg ordered if on Opiates?: Yes - Relevant Labs Sodium 133 mmol/L (136-145) L 02/28/20 10:30 Potassium 4.2 mmol/L (3.5-5.1) 02/28/20 10:30 Chloride 102 mmol/L (98-107) 02/28/20 10:30 Electrolytes, C-Reactive P, ESR: Reviewed - DM Control DM Control: Glucose 279 mg/dL (74-106) H 02/28/20 10:30 Insulin Dosing: N/A (BG elevated, DM noted in pts medical history, nothing ordered (pt DOCUMENT PREPARATION SPECIALIST)) - Heart Failure/WV Heart Failure/WV: Troponin I < 0.05 ng/mL (<0.06) 02/28/20 15:20 NT-Pro-B Natriuret Pep 335 pg/mL (<300) H 02/28/20 10:30 EF%, NUBIA's, B-Blockers, Diuretics: Reviewed - BP Control BP Control: Blood Pressure 153/78 If elevated: Reviewed - Qtc Review If Elevated: Reviewed (QTc 482 on admission has ondansetron and promethazine ordered) - IV to PO Switch IV Medications: Reviewed - Home Meds Home Med List reviewed: Reviewed Relevent Home Meds Not ordered & why?: carvedilol, carbidopa/levodopa, loperamide, riboflavin, tamsulosin, tramadol - Current meds Current Medication Order Review: Intervened (Discontinued DI meds, had already been given.) - Comments Comments/Follow Ups: 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
--- NOTE | 2020-02-29 12:43 | PCPN_ITS ---
Date of service: 02/29/20 Assessment and Plan Assessment and plan (1) Comfort measures only status: Status: Acute Assessment and plan: Feeling comfortable on low dose morphine CADD pump. Enjoyed seeing his daughter. Her phone number is programmed into his IPAD. Wants to speak to her daily. WILL NEED HELP to do so. No unmet palliative needs at this time. (2) Hemorrhagic ascites: Status: Acute Assessment and plan: last hemoglobin was 6.4. doesn't want transfusion, no pain at all with low dose morphine (3) Dying care: Status: Acute Assessment and plan: enjoyed seeing the hot dog vendor, Rafaela has some residual worries about things he said wrong or did wrong reminded him he has been forgiven (4) Palliative care patient: Status: Acute (5) Liver cancer: Status: Chronic Assessment and plan: diagnosed within last 2 months or so has had long-standing cirrhosis; evaluated by [facility] team knows he is terminal didn't want a lot done; not a lot of treatment options either (6) Cirrhosis of liver: Status: Chronic Assessment and plan: diagnosed 20 years ago or more, from obesity? denies having been a heavy drinker Qualifiers: Hepatic cirrhosis type: unspecified hepatic cirrhosis Ascites presence: with ascites Qualified Code(s): K74.60 - Unspecified cirrhosis of liver; R18.8 - Other ascites (7) Delirium due to another medical condition: Status: Acute Assessment and plan: not having scary thoughts just drifts off in the middle of sentences and then starts talking about things that make no sense explained to daughter this is normal part of dying process he only needs to be treated if he is frightened or anxious Subjective Subjective Patient reports: nausea and shortness of breath Interval history since last seen: Dr Ramos evaluated Drake last evening and started him on comfort measures, which he requested. Today he was asking for Act 39 medications, and I explained that was not possible as an inpatient nor is it possible due to his mental cloudiness. Drake was intent upon talking to his daughter, Deanna, in [place]. He requested his own IPad, which he had left in his apt when he was transferred to [facility] by ambulance. I retrieved his IPad at [facility] and brought it to him. He called his daughter Deanna and they faced time for an hour or more. He struggled to remember his password, trying multiple times, prior to getting on. He is encephalopathic, with hallucinations, Most of the sentences he speaks do not make sense. His abdomen is filling up again with ascites/blood. He appears to be at term. He has no pain with palpation of his abdomen. He is on low dose morphine at 1 mg/hr; it is keeping him very comfortable. He frets about things he said wrong or did wrong. I kept on reminding him that people have forgiven him. He denies any pain. He shows no non-verbal signs of pain. Exam Narrative Exam Narrative: Drake is lying in bed. He is very pale. He has to use the trapeze to move his position. His belly is quite distended and tense but has good bowel sounds. His heart is regular and tachycardic. He has episodes of confusion. Sometimes he stops speaking in the middle of a sentence. He was clearly quite moved/happy to see his daughter over Facetime. He had hoped to see her in person but she cannot cross the border, due to COVID. He has no blood seeping from any orifices. Despite internal bleeding, he has no pain. He did recognize me when I arrived. He told me and his daughter that he knows he is dying. He understood that he will not make it to his next birthday, in 11 days. He was hoping to turn 80. Objective Last Vital Signs Temp 98.6 F 02/29/20 11:22 Pulse 82 02/29/20 11:22 Resp 20 02/29/20 11:22 BP 153/78 H 02/29/20 11:22 Pulse Ox 99 02/29/20 11:22 Laboratory Results - last 24 hr 02/28/20 02/28/20 02/28/20 10:30 11:35 14:25 Troponin I < 0.05 NT-Pro-B Natriuret Pep 335 H SARS-CoV-2 (PCR) Negative Nasopharyn COVID-19 PCR Not Applicable Ref Test Perform Site [facility] lab Patient ABO/Rh O Positive Antibody Screen Positive Antibody Identification Anti-E Crossmatch See Detail 02/28/20 15:20 Troponin I < 0.05 NT-Pro-B Natriuret Pep SARS-CoV-2 (PCR) Nasopharyn COVID-19 PCR Ref Test Perform Site Patient ABO/Rh Antibody Screen Antibody Identification Crossmatch
--- NOTE | 2020-02-29 13:42 | W.PM.PROGNOT ---
Date of Service Date of service: 02/29/20 Time of Service: 13:43 Assessment and Plan Assessment and plan (1) Comfort measures only status: Start date: 02/29/20 Start time: 14:11 Status: Acute Assessment and plan: Terminal liver ca now bleeding with ascitis. He likely has days to live. 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 Breathing appears non labored. above case discussed with Dr. Meyers who is in agreement. Subjective Subjective Patient reports: no new complaints Interval history since last seen: He is sleeping when evaluating him. He appears comfortable. AIRCRAFT LANDING GEAR INSPECTOR on drip Exam Narrative Exam Narrative: Elderly gentlemen that is pale and appears very ill. He is sleeping at this time. He appears comfortable and his breathing is nonlabored. He continues to make urine. Objective Last Vital Signs Temp 37.0 C 02/29/20 11:22 Pulse 82 02/29/20 11:22 Resp 20 02/29/20 11:22 BP 153/78 H 02/29/20 11:22 Pulse Ox 99 02/29/20 11:22 Laboratory Results - last 24 hr 02/28/20 02/28/20 02/28/20 11:35 14:25 15:20 Troponin I < 0.05 SARS-CoV-2 (PCR) Negative Nasopharyn COVID-19 PCR Not Applicable Ref Test Perform Site [facility] lab Patient ABO/Rh O Positive Antibody Screen Positive Antibody Identification Anti-E Crossmatch See Detail
--- NOTE | 2020-02-29 15:02 | CHAPLAIN ---
Drake has severe liver problems and is expected by Palliative Care doctors to live a few more days. He is on comfort measures and appears to be comfortable. He had requested a econometrician visit. We've started conversations at two different times today, and Drake has fallen asleep while taking to me. He has an iPad and has been able to see and speak with his daughter with that. His daughter, Annabelle, is the oldest of five kids and lives in [place] so she is not able to travel to see Drake because of COVID restrictions. Drake had been attending the [facility] on line for the past several months. Radha Alejandra, a member of the [facility] called to ask about providing music for Drake to listen and visiting rules. I told her I couldn't speak about Drake specifically with her, but let her know what the visitation rules are currently. Drake's first cousin visited him today. I'll continue to visit Drake.
[2020-03-01] MEDS: diphenhydrAMINE 50 MG/ML VIAL 25 MG IVP ×3 (00:50→21:45)
[2020-03-01] MEDS: Normal Saline Flush 10 ML SYR IVP ×7 (00:51→21:46)
[2020-03-01] MEDS: LORazepam 2 MG/ML VIAL IV/SC (03:41)
[2020-03-01] MEDS: Docusate Sodium 100 MG CAP PO ×2 (08:35→21:07)
--- NOTE | 2020-03-01 10:21 | PDOC.CMPRO ---
- If Service Date Differs Date of service: 03/01/20 Time of Service: 10:21 Care Management Progress Note S/O: Drake was sitting up in bed when CM met with him. He was alert and appeared oriented and denied that he was having any pain at the moment. He shared that he was surprised that his illness progressed as rapidly as it did. CM discussed approved visitors with him and he was able to identify Graciela Nathan as one of the visitors he would like to see. She apparently visited yesterday. There was some confusion about the second visitor. The hotel front office manager had documented that Anamaria Proctor was on the list and also visited yesterday however Drake denied knowing who that was. He did receive a visit from his cousin David and it appears that Anamaria and David are the same person. Per staff, Drake indicated that he would like to have one more birthday which is not until 03/11/20. Since it is uncertain if Drake will be here to celebrate, the staff threw him a birthday republican with his daughter on video to join in. Drake became teary and said he was emotional. He then shared that everyone at [facility] has treated him very well and that they take good care of him. A: Drake is a 79 year old man admitted on 02/28/20 for hospice and end of life care P:Drake has terminal liver cancer with hemorrhagic ascites. He likely has days to live, per provider. He has been made comfort measures status and palliative has been consulted to try to carry out patient goals for end of life care. Drake remains on morphine infusion with prn ativan , scopolamine, and antiemtics for symptom management. He will remain at [facility] for the remainder of his life. CM will continue to support Drake and his family through this difficult time.
--- NOTE | 2020-03-01 11:36 | CHAPLAIN ---
Drake was talking with his daughter, Annabelle, on his phone when I stopped in this morning. I didn't stay long. They continued their conversation. Later I received a call from Rev. Orlando Mariee, the research and development manager of the [facility]. Drake has been attending the [facility] services on line, so know Rev. Mariee but has not met him yet. Drake gave me permission to speak with Rev. Mariee, so I provided Rev. Mariee with an update on Drake and will check back with him later today. I'll also continue to visit Drake.
--- NOTE | 2020-03-01 14:09 | PGE_ITS ---
Date of Service Date of service: 03/01/20 Time of Service: 14:09 Assessment and Plan Assessment and plan (1) Liver cancer: Status: Chronic Assessment and plan: terminal, with hemorrhagic ascities here for end of life care. continue QUALITY CONTROL MICROBIOLOGIST with morphine drip and prn medication, adjust as needed. case discussed with Dr. Meyers Subjective Subjective Patient reports: no new complaints Exam Const General: cooperative and comfortable Nutritional Appearance: average body habitus and overweight Orientation: alert, awake and oriented x3 HENMT Head: normal to inspection, normocephalic and atraumatic Resp Effort & Inspection: normal respiratory effort and audible wheezes Cardio Rate: regular rate GI Inspection: distended Palpation: firm Extrem General: normal to inspection, full ROM and edema Objective Last Vital Signs Temp 37.0 C 02/29/20 11:22 Pulse 82 02/29/20 11:22 Resp 20 02/29/20 11:22 BP 153/78 H 02/29/20 11:22 Pulse Ox 99 02/29/20 11:22
--- NOTE | 2020-03-01 15:55 | W.PALPGNOTE ---
Date of service: 03/01/20 Assessment and Plan Assessment and plan (1) Delirium due to another medical condition: Status: Acute Assessment and plan: He is not afraid. He is sad and remorseful. If his remorse worsens, and it appears he is suffering emotionally/spiritually, he may benefit from some scheduled haldol or low dose lorazepam. For now, talking about his worries and being reassured by those around him seems to work. 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 This eventually led to his cancer. He was just diagnosed last month or so. He was admitted with severe anemia when he ended up with hemmorrhagic ascites. (3) Dying care: Status: Acute Assessment and plan: except for his spiritual/emotional distress, his symptoms are controlled. His life expectancy is measured in days. (4) Comfort measures only status: Status: Acute Assessment and plan: Randy, his STRUCTURAL STEEL EQUIPMENT ERECTOR, will hold a little birthday for him tomorrow, I think. He needs to feel recognized and important before he dies. I promised I would say hello to his when I go over to Rehab later today. Daughter is in regular touch with him over face-time. Subjective Subjective Patient reports: no new complaints Interval history since last seen: Drake is still a bit delirious and confused. He denies having pain. He remains at 1 mg/hr of morphine. His work of dying revolves around his fears that he will not be forgiven for things he has said or done that irritated or angered others. He frets about this. He is easily tearful. He wanted me to tell his how much he loves her; [facility]. He did not want me to tell her he is dying. (She has dementia). Randy, one of his LNAs, is planning on celebrating his birthday with him early. She asked if she could have a little republican for him and I strongly endorsed her plan. He had hoped to see 80. It is possible though very unlikely he will live another 10 days. Exam Narrative Exam Narrative: Drake is lying in bed. He is very pale. His voice is quiet. He is confused but with episodes of clarity, c/w delirium/encephalopathy. His belly is quite distended and tense but has good bowel sounds. His heart is regular and tachycardic. Sometimes he stops speaking in the middle of a sentence. Despite internal bleeding, he has no pain. He did recognize me when I arrived again this am. He was tearful, apologizing profusely to an episode of irritation he had toward me 10 years ago. I told him I could not remember anything about it. He appreciated his visit with pulping machine operatoroliverio Martins yesterday. He likes her daily visits. Objective Last Vital Signs Temp 98.6 F 02/29/20 11:22 Pulse 82 02/29/20 11:22 Resp 20 02/29/20 11:22 BP 153/78 H 02/29/20 11:22 Pulse Ox 99 02/29/20 11:22
[2020-03-01] MEDS: Senna TAB PO (21:07)
[2020-03-02] MEDS: Normal Saline Flush 10 ML SYR IVP ×4 (00:45→19:54)
[2020-03-02] MEDS: LORazepam 2 MG/ML VIAL IV/SC (00:45)
[2020-03-02] MEDS: diphenhydrAMINE 50 MG/ML VIAL 25 MG IVP ×2 (04:18→19:53)
--- NOTE | 2020-03-02 09:34 | CMPROGNOTE_ITS ---
- If Service Date Differs Date of service: 03/02/20 Time of Service: 09:34 Care Management Progress Note S/O: Drake had increased pain overnight, rating it a 6/10. He was given additional pain medication and this morning his basal rate was increased to 1.5 mg/hr from 1.0. Drake appeared much more comfortable after the increase and slept much of the day. A: Drake is a 79 year old man admitted on 02/28/20 for hospice and end of life care P:Drake has terminal liver cancer with hemorrhagic ascites. He likely has days to live, per provider. He has been made comfort measures status and palliative has been consulted to try to carry out patient goals for end of life care. Drake remains on morphine infusion with prn ativan , scopolamine, and antiemtics for symptom management. He will remain at [facility] for the remainder of his life. will continue to support Drake and his family through this difficult time.
--- NOTE | 2020-03-02 10:28 | PCPN_ITS ---
Date of service: 03/02/20 Time of Service: 10:28 Assessment and Plan Assessment and plan (1) Delirium due to another medical condition: Status: Acute Assessment and plan: He is not tearful today. He is sleeping but when he awakens, his speech demonstrates a clear thought pattern. He appears to be very comfortable. (2) Liver cancer: Status: Chronic Assessment and plan: As a result of cirrhosis. He was admitted with severe anemia due to hemmorrhagic ascites. He is very comfortable on the morphine infusion at 1.5 mg/hr. He denies pain at this time. Continue morphine infusion, titrate as needed. (3) Dying care: Status: Acute Assessment and plan: He is comfortable, not tearful, continue comfort care. His life expectancy is measured in days. (4) Comfort measures only status: Status: Acute Assessment and plan: As above. Continue comfort care, adjust morphine as needed. Subjective Subjective Interval history since last seen: Drake reports that his pain is well c ontrolled with morphine at 1.5 mg/hr. He reports that he does not have an appetite, he does not feel hungry at all. He is sipping on liquids. His mouth is dry. He is sleeping most of the time. He denies feeling SOB, he has an occasional cough. He continues to have hematuria. He is very pleased about the care that he is receiving at [facility]. He states, I could not get better care anywhere. Drake dozed off throughout the visit and had to be awakened. Exam Narrative Exam Narrative: General: elderly man, laying in bed, skin is pale. Sleeping for most of the visit. Alert and coherent when he awakens. HEENT: normocephalic, atraumatic, mucous membranes dry. Neck: supple. no JVD. Cardiovascular: heart sounds regular. Respiratory: respirations appear even and unlabored, lung sounds clear on limited anterior and lateral exam. GI: abdomen softly distended, denies tenderness of palpation. Extremities: no significant edema, pedal pulses palpable. Objective Last Vital Signs Temp 37.0 C 02/29/20 11:22 Pulse 82 02/29/20 11:22 Resp 20 02/29/20 11:22 BP 153/78 H 02/29/20 11:22 Pulse Ox 99 02/29/20 11:22
--- NOTE | 2020-03-02 11:00 | W.NUTRFU ---
Date of service: 03/02/20 Time of Service: 11:00 Nutritional Follow up NOTE: 79 year old male admitted for dying care with liver cancer with delirium, hemorrhagic ascites. 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 Following regular meal plan with minimal intake. Will follow and provide meal preferences. Time Spent in Nutritional Counseling and Treatment: 0
--- NOTE | 2020-03-02 14:10 | CHAPLAIN ---
Drake was visiting with a friend and his mine engineer when I stopped in. He continues to say he doesn't have any pain. He sometimes nods off during conversations and will say that he loses his train of thought. His daughter keeps in touch by using [employer] with Drake. Yesterday when I asked Drake if he had any worries he said he was concerned about his knowing what is going on with him, and I don't believe she has been told anything. She lives at [facility].
--- NOTE | 2020-03-02 14:50 | W.PM.PROGNOT ---
Date of Service Date of service: 03/02/20 Time of Service: 14:51 Assessment and Plan Assessment and plan (1) Delirium due to another medical condition: Status: Acute Assessment and plan: To achieve adequate pain control with the morphine does seem to sedate him but he ate he is able to open his eyes and is able to talk with his girlfriend although speech is somewhat slurred. In his present rate of 1.5 mg an hour of morphine sulfate equivalent dose of Dilaudid would be 0.2 mg/h. We will switch over to a continuous Dilaudid CADD pump infusion subcutaneously with bolus of 0.2-0.5 mg subcutaneously as needed for breakthrough pain every 30 minutes. (2) Liver cancer: Status: Chronic Assessment and plan: SKIN TOGGLER status. Patient has medications for anxiety and pain and nausea. Qualifiers: Liver malignancy type: unspecified liver malignancy Qualified Code(s): C22.9 - Malignant neoplasm of liver, not specified as primary or secondary (3) Dying care: Status: Acute Assessment and plan: He is comfortable, not tearful, continue comfort care. His life expectancy is measured in days. (4) Comfort measures only status: Status: Acute Assessment and plan: As above. Continue comfort care, adjust hydromorphone as needed. Subjective Subjective Interval history since last seen: Patient's pain was not well controlled this morning therefore we increase his morphine to 1.5 mg IV every 1 hour. He is on a continuous drip of morphine with as needed boluses for breakthrough. Apparently last night he required a couple doses of morphine. However the patient has had increased amount of itching this is probably secondary to the morphine. I asked his girlfriend who is sitting with him whether he had this pruritus prior to admission she did not think so. I explained that the pruritus could be secondary to his chronic liver disease or could be due to the morphine that he is getting for his pain. I spoke with the pharmacist in order to switch him over to Dilaudid. She recommended a continuous Dilaudid drip at a rate of 0.2 mg an hour with boluses of 0.2-0.5 mg every 30 minutes as needed breakthrough pain. Patient has orders for Benadryl as needed. Exam Narrative Exam Narrative: Elderly male lying in bed in semifowler position with his girlfriend at his bedside. Speech is slurred and at times is hard to understand him. He is lying there is scratching at his arms constantly. He denies any pain however when I push on his abdomen he does have demonstrable pain. Abdomen is distended. Objective Last Vital Signs Temp 37.0 C 02/29/20 11:22 Pulse 82 02/29/20 11:22 Resp 20 02/29/20 11:22 BP 153/78 H 02/29/20 11:22 Pulse Ox 99 02/29/20 11:22
[2020-03-02] MEDS: Scopolamine 1 MG/3 DAYS PATCH TD (15:04)
[2020-03-02] MEDS: HYDROmorphone 100 MG in CADD PUMP CASSETTE 1 EACH, Normal Saline 90 ML SC INF (17:19)
--- NOTE | 2020-03-03 09:00 | CMPROGNOTE_ITS ---
- If Service Date Differs Date of service: 03/03/20 Time of Service: 09:00 Care Management Progress Note S/O: Drake was dozing when CM met with him. His arm was hanging off the bed and CM replaced it on the bed and he woke up. He stated that he was achy but was not sure if he wanted any additional pain medicine. Drake shared with CM that he felt that everyone at [facility] was very good too him and that he couldn't ask to be in a better place. A: Drake is a 79 year old man admitted on 02/28/20 for hospice and end of life care P:Drake has been made comfort measures status and palliative has been consulted to try to carry out patient goals for end of life care. Drake remains on morphine infusion with adjustments as needed. He has prn medications ordered as well for nausea and restlessness. He will remain at [facility] for the remainder of his life. CM will continue to support Drake and his friends and family through this difficult time
--- NOTE | 2020-03-03 10:10 | PGE_ITS ---
Date of Service Date of service: 03/03/20 Time of Service: 10:10 Assessment and Plan Assessment and plan (1) Liver cancer: Status: Chronic Assessment and plan: terminal, with hemorrhagic ascities here for end of life care. continue DUCK BILL OPERATOR with dilaudid drip and prn medication, adjust as needed. case discussed with Dr. Meyers Qualifiers: Liver malignancy type: unspecified liver malignancy Qualified Code(s): C22.9 - Malignant neoplasm of liver, not specified as primary or secondary Subjective Subjective Patient reports: no new complaints Interval history since last seen: better pain control on dilaudid, less itching Exam Const General: cooperative and comfortable Nutritional Appearance: average body habitus and overweight Orientation: alert, awake and oriented x3 HENMT Head: normal to inspection, normocephalic and atraumatic Resp Effort & Inspection: normal respiratory effort and audible wheezes Cardio Rate: regular rate GI Inspection: distended Palpation: firm Extrem General: normal to inspection, full ROM and edema Objective Last Vital Signs Temp 37.0 C 02/29/20 11:22 Pulse 82 02/29/20 11:22 Resp 20 02/29/20 11:22 BP 153/78 H 02/29/20 11:22 Pulse Ox 99 02/29/20 11:22
--- NOTE | 2020-03-03 10:22 | PCPN_ITS ---
Date of service: 03/03/20 Assessment and Plan Assessment and plan (1) Liver cancer: Status: Chronic Assessment and plan: from years of cirrhosis surprisingly, not jaundiced is having encephalopathy/terminal delirium occassionally getting anxious about things he has said or done that he regrets Qualifiers: Liver malignancy type: unspecified liver malignancy Qualified Code(s): C22.9 - Malignant neoplasm of liver, not specified as primary or secondary (2) Delirium due to another medical condition: Status: Acute (3) Dying care: Status: Acute Assessment and plan: receiving excellent care from [facility] staff, [facility] nurses hospitalists, everyone keeping him comfortable and happy (4) Palliative care patient: Status: Acute Assessment and plan: Gail Costello NP to see him this weekend Subjective Subjective Patient reports: no new complaints and no bowel movement; denies still having pain Interval history since last seen: Med-Surg staff celebrated his birthday with balloons, brought in by Randy Croft. . Scarlett Costello RN saw him yesterday for the pall care team. He was comfortable during her visit. . He is comfortable again today. His upper dentures had fallen to the floor. His lower dentures were loose in his mouth. He wanted them out. He's not eating much. He still is fretting about arguments he's had with others in the past. I again reminded him he is a good man. Exam Narrative Exam Narrative: General: elderly man, laying in bed, skin is pale. Vague and sleepy, stopping mid-sentence often. HEENT: normocephalic, atraumatic, mucous membranes dry. Neck: supple. no JVD. Cardiovascular: heart sounds regular. Respiratory: respirations appear even and unlabored, lung sounds clear on limited anterior and lateral exam. GI: abdomen softly distended, denies tenderness of palpation. Extremities: no significant edema, pedal pulses palpable. Objective Last Vital Signs Temp 98.6 F 02/29/20 11:22 Pulse 82 02/29/20 11:22 Resp 20 02/29/20 11:22 BP 153/78 H 02/29/20 11:22 Pulse Ox 99 02/29/20 11:22
[2020-03-03 15:00] VITALS: O2SAT 99
--- NOTE | 2020-03-03 15:59 | CHAPLAIN ---
I visited with Drake this morning. He was doze off at times during our conversations, but I reminded him of the contributions he's made to this world and the care he has provided for others, and that he has been seeking a strong relationship with God, which is what God asks of him. Yesterday, his taxi driver supervisor, Rev. Orlando Mariee, visited. Today he has had visitors most of the day as well, and was Facetiming with more relatives.
[2020-03-03] MEDS: diphenhydrAMINE 50 MG/ML VIAL 25 MG IVP ×2 (18:15→22:57)
[2020-03-03] MEDS: Normal Saline Flush 10 ML SYR IVP ×2 (18:16→22:58)
[2020-03-03] MEDS: Docusate Sodium 100 MG CAP PO (19:39)
[2020-03-03] MEDS: Senna TAB PO (19:39)
--- NOTE | 2020-03-04 11:20 | CMPROGNOTE_ITS ---
Care Management Progress Note S/O: Drake continues to be closely monitored and treated with the goal of comfort, for end of life care. Med-Surg staff celebrated his birthday with balloons, as Drake wanted to live to see his next birthday. His close relatives are from [place], and not permitted to visit due to Covid guidelines at this time; though he has been able to facetime with family, including his daughter. CM continues to follow. A: 79 [address] to [facility] on 02/28/20 for end of life care P: Drake has been made comfort measures status and palliative has been consulted to try to carry out patient goals for end of life care. Drake remains on morphine infusion with adjustments as needed. He has prn medications ordered as well for nausea and restlessness. He will remain at [facility] for end of life care.
--- NOTE | 2020-03-04 12:50 | W.PALPGNOTE ---
Date of service: 03/04/20 Time of Service: 12:50 Assessment and Plan Assessment and plan (1) Liver cancer: Status: Chronic Assessment and plan: From years of cirrhosis Appears pale, slightly jaundiced. Has had intermittent encephalopathy/terminal delirium, he is clear at present. Qualifiers: Liver malignancy type: unspecified liver malignancy Qualified Code(s): C22.9 - Malignant neoplasm of liver, not specified as primary or secondary (2) Delirium due to another medical condition: Status: Acute Assessment and plan: As above. (3) Dying care: Status: Acute Assessment and plan: He is receiving excellent care from [facility] staff, [facility] nurses hospitalists, everyone keeping him comfortable and happy (4) Palliative care patient: Status: Acute Assessment and plan: Continue pain control with hydromorphone pump for comfort, titrate as needed. Subjective Subjective Interval history since last seen: Drake reports that his pain is well controlled with the hydromorphone pump. He is waiting for nursing to boost him up in bed so he can eat his lunch. He is chatting on FaceTime. He denies any other concerns. Exam Narrative Exam Narrative: General: elderly man, sitting up in bed, skin is pale. Appears fatigued, talkative. Speech is difficult to understand at times. HEENT: normocephalic, atraumatic, mucous membranes dry. Neck: supple. no JVD. Cardiovascular: heart sounds regular. Respiratory: respirations appear even and unlabored, lung sounds clear on limited anterior and lateral exam. GI: abdomen softly distended, denies tenderness of palpation. Extremities: no significant edema, pedal pulses palpable. Objective Last Vital Signs Temp 37.0 C 02/29/20 11:22 Pulse 82 02/29/20 11:22 Resp 20 02/29/20 11:22 BP 153/78 H 02/29/20 11:22 Pulse Ox 99 03/03/20 15:00
[2020-03-04] MEDS: Normal Saline Flush 10 ML SYR IVP ×2 (17:57→23:12)
[2020-03-05] MEDS: diphenhydrAMINE 25 MG CAP PO (00:33)
--- NOTE | 2020-03-05 10:44 | W.PM.PROGNOT ---
Date of Service Date of service: 03/05/20 Time of Service: 10:44 Assessment and Plan Assessment and plan (1) Comfort measures only status: Start date: 03/05/20 Start time: 10:46 Status: Acute Assessment and plan: Terminal with hemorrhagic ascities here for end of life care. continue VB NET DEVELOPER with dilaudid drip and prn medication, adjust as needed above case discussed with Dr. Barrett who is in agreement. Subjective Subjective Patient reports: other Interval history since last seen: Sitting up in bed. C/o 4-5 out of 10 pain. Otherwise no needs. Exam Narrative Exam Narrative: General: elderly man, sitting up in bed, skin is pale. Appears fatigued, talkative. Speech is difficult to understand at times. HEENT: normocephalic, atraumatic, mucous membranes dry. Neck: supple. no JVD. Cardiovascular: heart sounds regular. Respiratory: respirations appear even and unlabored, lung sounds clear on limited anterior and lateral exam. GI: abdomen softly distended, denies tenderness of palpation. Extremities: no significant edema, pedal pulses palpable. Objective Last Vital Signs Temp 37.0 C 02/29/20 11:22 Pulse 82 02/29/20 11:22 Resp 20 02/29/20 11:22 BP 153/78 H 02/29/20 11:22 Pulse Ox 99 03/03/20 15:00
--- NOTE | 2020-03-05 13:31 | CMPROGNOTE_ITS ---
Care Management Progress Note S/O: Drake continues to be closely monitored and treated with the goal of comfort, for end of life care. His close relatives are from [place], and not permitted to visit due to Covid guidelines at this time; though he has been able to facetime with family, including his daughter. CM continues to follow. A: 79 year old admitted to [facility] on 02/28/20 for end of life care P: Drake has been made comfort measures status and palliative has been consulted to try to carry out patient goals for end of life care. Drake remains on morphine infusion with adjustments as needed. He has prn medications ordered as well for nausea and restlessness. He will remain at [facility] for end of life care.
--- NOTE | 2020-03-05 16:24 | PGE_ITS ---
Date of Service Date of service: 03/05/20 Time of Service: 13:30 Assessment and Plan Assessment and plan (1) Liver cancer: Status: Chronic Assessment and plan: From years of cirrhosis Skin is pale. He is sleeping, awakened only briefly for visit. He has had intermittent encephalopathy/terminal delirium, he appears to be mentating normally at present. Qualifiers: Liver malignancy type: unspecified liver malignancy Qualified Code(s): C22.9 - Malignant neoplasm of liver, not specified as primary or secondary (2) Delirium due to another medical condition: Status: Acute Assessment and plan: As above. (3) Dying care: Status: Acute Assessment and plan: He verbalizes feeling grateful for the care he is receiving. He states, I couldn't be in a better place. (4) Palliative care patient: Status: Acute Assessment and plan: Continue pain control with hydromorphone pump for comfort, titrate as needed. Subjective Subjective Interval history since last seen: Drake was sleeping when I entered the room. He is pale. He awakened easily to verbal stimuli but readily falls back to sleep during the visit. His nurse reports that he was experiencing pain and his hydromorphone CADD was increased to 0.4 mg/hr. He denies pain at present. He is eating small amounts of his meals. He denies nausea or any other concerns. He reports being comfortable. Exam Narrative Exam Narrative: General: elderly man, resting in bed with eyes closed, awakened easily to verbal stimuli. Skin is pale. Speech is soft and difficult to understand at times. HEENT: normocephalic, atraumatic, mucous membranes dry. Neck: supple. no JVD. Cardiovascular: heart sounds regular. Respiratory: respirations appear even and unlabored, lung sounds clear on limi lavell anterior and lateral exam. GI: abdomen softly distended, denies tenderness on palpation. Extremities: no significant edema, pedal pulses palpable. Objective Last Vital Signs Temp 37.0 C 02/29/20 11:22 Pulse 82 02/29/20 11:22 Resp 20 02/29/20 11:22 BP 153/78 H 02/29/20 11:22 Pulse Ox 99 03/03/20 15:00
[2020-03-06] MEDS: LORazepam 2 MG/ML VIAL IV/SC (07:46)
[2020-03-06] MEDS: Normal Saline Flush 10 ML SYR IVP (07:47)
--- NOTE | 2020-03-06 08:10 | W.PALPGNOTE ---
Date of service: 03/06/20 Time of Service: 08:11 Assessment and Plan Assessment and plan (1) Liver cancer: Status: Chronic Qualifiers: Liver malignancy type: unspecified liver malignancy Qualified Code(s): C22.9 - Malignant neoplasm of liver, not specified as primary or secondary (2) Dying care: Status: Acute (3) Comfort measures only status: Status: Acute Assessment and plan: Pt stated his pain was 4/10 Nursing was in the room. PLease advance his pain meds Clearly anxious this AM. PLease admisinster lorazepam. you want to change to scheduled Pruritis - consider benedry lotion topically after the Mmositurizing lotion is applied BM - PLease give polyethylene in cranberry juice BID until results Subjective Subjective Interval history since last seen: Staff states that Drake has actually been more agreeable than what he had been in the past. They have been watching for comfort and adjusting his pain medications appropriately Drake said to me that he is in 4 out of 10 pain. Nursing was in the room when he stated this. He is grimacing and seems a little out of sorts right now perhaps it is because there is 3 of us in the room or Perhaps he is more anxious than he has been He states that his shoulders are itchy and would like some help with this. He cannot remember his last bowel movement Exam Narrative Exam Narrative: Appears anxious. His heart is irregular. Lungs decreased movement. He speaks in complete sentences. Rash on shoulders. Mostly they look dry. Objective Last Vital Signs Temp 98.6 F 02/29/20 11:22 Pulse 82 02/29/20 11:22 Resp 20 02/29/20 11:22 BP 153/78 H 02/29/20 11:22 Pulse Ox 99 03/03/20 15:00
--- NOTE | 2020-03-06 10:26 | CMPROGNOTE_ITS ---
- If Service Date Differs Date of service: 03/06/20 Time of Service: 10:26 Care Management Progress Note S/O: A: 79 year old admitted to [facility] on 02/28/20 for end of life care P: Drake has been made comfort measures status and palliative has been consulted to try to carry out patient goals for end of life care. Drake remains on morphine infusion with adjustments as needed. He has prn medications ordered as well for nausea and restlessness. He will remain at [facility] for end of life care.
[2020-03-06] MEDS: Milk of Magnesia 30 ML CUP PO (12:00)
--- NOTE | 2020-03-06 12:06 | W.PM.DS.N ---
Date of service: 03/06/20 Time of Service: 12:07 DS: Diagnosis Discharge Diagnosis (1) Liver cancer: Status: Chronic (2) Dying care: Status: Acute (3) Comfort measures only status: Status: Acute Discharge Plan Disposition Patient Disposition: [facility] BED LEVEL 1 Condition: Poor Discharge Details Reason For Visit: INTRAPERITONEAL BLEEDING Admit Date/Time: 02/28/20 14:17 Admit Provider: El Meyers Attending Provider: El Meyers Primary Care Provider: Jonane Riggins Hospital Course Hospital Course: This is a 79 y.o male with PMH of hypertension, Parkinson's disease, colon cancer, liver cirrhosis, insulin-dependent diabetes, recently diagnosed with terminal liver cancer who presented to the emergency department with generalized weakness, worsening abdominal distention, new jaundice, and shortness of breath. ED labs remarkable for h/h 6.4/19.7, Sodium 133, BNP 335. Imaging in the ED revealing significant increase in ascites with material in right flank fluid concerning for blood. Patient refused transfer under any circumstances, he is likely bleeding from his liver. Dr. Yeung attempted to paracentesis under ultrasound guidance with only approx 1 cc bloody fluid he was unable to obtain theraputic paracentesis due to bleeding. He was ultimately admitted to /s and decided on comfort measures and hospice. He does not have any family in the [place] he states all his family is in [place]. case management and palliative care have been following. He was placed on morphine drip but it was changed to Dilaudid which his is tolerating better. He has remained comfortable and plans to stay here for end of life care. He will be discharged to [facility] care for ongoing nursing care and assessment. discharge discussed with DR Barrett. Home Meds and New Rx's Prescriptions: No Action tramadol 50 mg tablet 25 mg PO DAILY RF: 0 carbidopa-levodopa 25-100 mg tablet extended release 2 tab PO QID Qty: 240 RF: 11 riboflavin (vitamin B2) 100 mg tablet 100 mg PO DAILY Qty: 90 RF: 3 tamsulosin [Flomax] 0.4 mg capsule 0.8 mg PO DAILY Qty: 14 RF: 0 loperamide 2 mg capsule 2 mg PO QID RF: 0 ondansetron HCl 4 mg tablet 4 mg PO Q8-10H RF: 0 carvedilol 3.125 mg tablet 3.12 mg PO DAILY RF: 0 Discharge Instructions Activity:: Activity as Tolerated Equipment/Supplies:: No Equipment Needed Diet:: As Tolerated Discharge Orders Discharge Orders: Discharge Order (Routine); Ordered 03/06/20 Ordered By: Maria Dolores Omer DS: Summary Status at Discharge Functional status at discharge: bed bound Overall status at discharge: patient is not back to baseline Mental Status: mental status grossly normal Speech and Movement: speech and movement normal Mood: congruent mood Affect: normal affect Exam Const General: cooperative and comfortable Nutritional Appearance: average body habitus and overweight Orientation: alert, awake and oriented x3 HENMT Head: normal to inspection, normocephalic and atraumatic Resp Effort & Inspection: normal respiratory effort and audible wheezes Cardio Rate: regular rate GI Inspection: distended Palpation: firm Extrem General: normal to inspection, full ROM and edema Psych Mental Status: mental status grossly normal Speech and Movement: speech and movement normal Mood: congruent mood Affect: normal affect DS: Data Vitals/I&O Vitals and I&O: Vital Signs Temperature 37.0 C 02/29/20 11:22 Temperature Source Skin 02/28/20 10:06 Pulse 82 02/29/20 11:22 Pulse Rhythm Regular 02/28/20 15:13 Pulse 88 02/28/20 14:40 Respiratory Rate 20 02/29/20 11:22 Respiratory Effort Non-Labored 03/06/20 07:51 Respiratory Depth Normal 03/06/20 07:51 Respiratory Pattern Normal 03/06/20 07:51 Blood Pressure 153/78 H 02/29/20 11:22 Blood Pressure Mean 79 02/28/20 14:31 Blood Pressure Position Sitting 02/28/20 10:06 Pulse Oximetry 99 03/03/20 15:00 Oxygen Delivery Method Room Air 03/06/20 04:43 Oxygen Flow Rate 0 03/06/20 04:43 Pain Level 5 03/05/20 09:44 Intake & Output 03/05/20 03/06/20 03/06/20 23:59 11:59 23:59 Intake Total 120 / 382.857 100 / 100 Output Total 100 / 250 200 / 200 Balance 20 / 132.857 -100 / -100 Intake: Oral 120 / 370 100 / 100 Output: Urine 100 / 250 200 / 200 Other: Urine Color Dark Vi Dark Vi [place] Brown Urine Appearance Clear Clear Urine Odor Normal Comment 150CC IN URINAL AND LARGE INCONTINENCE IN DIAPER. Voiding Methods Urinal Urinal Incontinent [facility] Medical History (Updated 03/02/20 @ 15:38 by El Meyers) Anxiety Cirrhosis of liver On beta blockers; Under care of Dr. Joe. Colon cancer Multiple polypectomies. 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 Kidney stones, calcium oxalate monohydrate Liver cancer Liver cirrhosis MGUS (monoclonal gammopathy of unknown significance) Mild cognitive impairment (08/17/15) HANS (obstructive sleep apnea) Pancytopenia Thought to be secondary to liver cirrhosis and splenic sequestratioin. Please note bone marrow biopsy was negative. Parkinson disease Perirectal abscess Prostate cancer (05/24/02) S/P radiation, Lupron, now on Zoladex. 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 no bleeding. no pain. cont care. 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) Ventral hernia Visual hallucination Surgical History BONE MARROW BIOPSY (11/25/14) LISSET Colectomy 1992 colonoscopy (11/21/15) H/O ventral hernia repair History of bowel resection History of Leonid fundoplication S/P cholecystectomy S/P ear surgery Family History Maternal Cousin Colon cancer Maternal Cousin Colon cancer Mother Cervical cancer Social History Smoking/Tobacco Use Status: Former Tobacco Use Second Hand Exposure: No Smoking risk assessment performed?: Yes Alcohol Intake: current Alcohol Intake frequency: holidays/special occasions only Alcohol type: beer Drug use: Never Substance use type: does not use Household members: none Housing: apartment current occupation: Retired Seatbelt use: always Do you feel safe at home: Yes Do you feel safe in your relationship?: Yes
== END 2020-03-06 14:44 | disposition swing bed (61) ==
LOC: ER 14:56 → MS 15:02
PROVIDERS: Admitting Provider Internal Medicine; Emergency Provider Student in an Organized Health Care Education/Training Program; PCP Nurse Practitioner Family; Visit Provider Internal Medicine
DX: C22.8 Malignant neoplasm of liver, primary, unspecified as to type (principal); K66.1 Hemoperitoneum; R18.8 Other ascites; K22.10 Ulcer of esophagus without bleeding; I85.00 Esophageal varices without bleeding; D61.818 Other pancytopenia; F05 Delirium due to known physiological condition; K74.60 Unspecified cirrhosis of liver; I10 Essential (primary) hypertension; G20 Parkinson's disease; Z79.4 Long term (current) use of insulin; E11.9 Type 2 diabetes mellitus without complications; K21.00 Gastro-esophageal reflux disease with esophagitis, without bleeding; K44.9 Diaphragmatic hernia without obstruction or gangrene; E78.5 Hyperlipidemia, unspecified; K58.9 Irritable bowel syndrome, unspecified; D50.9 Iron deficiency anemia, unspecified; D47.2 Monoclonal gammopathy; G47.33 Obstructive sleep apnea (adult) (pediatric); G31.84 Mild cognitive impairment of uncertain or unknown etiology; G25.81 Restless legs syndrome; K43.9 Ventral hernia without obstruction or gangrene; Z85.038 Personal history of other malignant neoplasm of large intestine
CPT/HCPCS: 36415; 36430; 80053; 86850; 86900; 86901; 86920; 87040; 93005; 96361; 96365; 96367; 99221; 99223; 99232; 99233; 99239; 99254; 99285; U0003; 71045; 74177; 81003; 81015; 82140; 83605; 83880; 84484; 85025; 85610; 86870; 86902; 87070; 87086; 87205; 93010; J0610; J0696; J1170; J1200; J2060; J3490; P9016

== ENCOUNTER 2020-03-06 12:16 | Inpatient (IN) | payer OTHER, SELFPAY ==
--- NOTE | 2020-03-06 12:15 | W.PM.HP.N ---
Date of service: 03/06/20 Time of Service: 12:15 Assessment and Plan Assessment and plan (1) Liver cancer: Status: Chronic Assessment and plan: metastatic, terminal. case management and palliative care following. patient remains on dilaudid cadd pump with symptom control. can have bolus prn and will adjust as needed. plan to stay here for end of life care. comfort measures only Qualifiers: Liver malignancy type: unspecified liver malignancy Qualified Code(s): C22.9 - Malignant neoplasm of liver, not specified as primary or secondary History of Present Illness History of Present Illness Chief Complaint: end of life care Narrative: This is a 79 y.o male with PMH of hypertension, Parkinson's disease, colon cancer, liver cirrhosis, insulin-dependent diabetes, recently diagnosed with terminal liver cancer who presented to the emergency department with generalized weakness, worsening abdominal distention, new jaundice, and shortness of breath. ED labs remarkable for h/h 6.4/19.7, Sodium 133, BNP 335. Imaging in the ED revealing significant increase in ascites with material in right flank fluid concerning for blood. Patient refused transfer under any circumstances, he is likely bleeding from his liver. Dr. Yeung attempted to paracentesis under ultrasound guidance with only approx 1 cc bloody fluid he was unable to obtain theraputic paracentesis due to bleeding. He was ultimately admitted to / and decided on comfort measures and hospice. He does not have any family in the [place] he states all his family is in [place]. case management and palliative care have been following. He was placed on morphine drip but it was changed to Dilaudid which his is tolerating better. He has remained comfortable and plans to stay here for end of life care. He is being admitted to [facility] for ongoing nursing care and assessment. admission discussed with DR Barrett. Review of Systems All systems reviewed & are unremarkable except as noted in HPI and below [facility] Medical History (Updated 03/02/20 @ 15:38 by El Meyers) Anxiety Cirrhosis of liver On beta blockers; Under care of Dr. Joe. Colon cancer Multiple polypectomies. 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 Kidney stones, calcium oxalate monohydrate Liver cancer Liver cirrhosis MGUS (monoclonal gammopathy of unknown significance) Mild cognitive impairment (08/17/15) HANS (obstructive sleep apnea) Pancytopenia Thought to be secondary to liver cirrhosis and splenic sequestratioin. Please note bone marrow biopsy was negative. Parkinson disease Perirectal abscess Prostate cancer (05/24/02) S/P radiation, Lupron, now on Zoladex. 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 no bleeding. no pain. cont care. 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) Ventral hernia Visual hallucination Surgical History BONE MARROW BIOPSY (11/25/14) LISSET Colectomy 1992 colonoscopy (11/21/15) H/O ventral hernia repair History of bowel resection History of Leonid fundoplication S/P cholecystectomy S/P ear surgery Family History Maternal Cousin Colon cancer Maternal Cousin Colon cancer Mother Cervical cancer Social History Smoking/Tobacco Use Status: Former Tobacco Use Second Hand Exposure: No Smoking risk assessment performed?: Yes Alcohol Intake: current Alcohol Intake frequency: holidays/special occasions only Alcohol type: beer Drug use: Never Substance use type: does not use Household members: none Housing: apartment current occupation: Retired Seatbelt use: always Do you feel safe at home: Yes Do you feel safe in your relationship?: Yes Meds Home Medications and Allergies Home Medications Medication Instructions Recorded Confirmed Type ondansetron HCl 4 mg PO Q8-10H 02/24/20 03/06/20 History Allergies Allergy/AdvReac Type Severity Reaction Status Date / Time leuprolide acetate Allergy Severe Swelling/Ed Verified 02/24/20 18:12 [From Lupron] isabelle adhesive Allergy Intermediate Skin Rash Verified 02/24/20 18:12 enalapril [Enalapril] AdvReac Severe Hyperkalemi Verified 02/24/20 18:12 a aspirin AdvReac Intermediate Verified 02/24/20 18:12 esomeprazole magnesium AdvReac Intermediate Diarrhea Verified 02/24/20 18:12 [From Nexium] metformin AdvReac Intermediate Diarrhea Verified 02/24/20 18:12 acetaminophen AdvReac Mild Diarrhea Verified 02/24/20 18:12 Exam Narrative Exam Narrative: elderly frail male of stated age, chronically ill apppearing head atraumatic oral mucosa slightly dry respirations even and unlabored CV: regular rate and rhythm, he is well perfused abd: distended, slightly tender ext: moves all extremities COVID-19 Screening Have you, or household traveled for leisure in last 14 days?: No
--- NOTE | 2020-03-06 14:13 | CMSA_ITS ---
- If Service Date Differs Date of service: 03/06/20 Time of Service: 14:13 SB Psychosocial/Act.Assessment - Hospital Admission Admission Date: 02/28/20 Admission From:: ED Diagnosis:: Intraperitoneal bleed - Swing Bed Admission Swing Bed Admit Date:: 03/06/20 - Social Supports PREVIOUS FUNCTIONAL STATUS/SOCIAL/FAMILY SUPPORTS:: Drake lives at the [facility] alone. His , Gregoria is a resident at [facility] and he used to visit her regularly. He has a daughter Annabelle, in [place], and a step daughter Nara who are both identified as supports. He does not drive, and relys on [facility] for transportation. - Prior to Admission Living Arrangements/Environment Prior to Admission:: Drake has end stage liver disease (cancer) and was admitted on comfort measures. He has had an intraperitoneal bleed and is not expected to survive this episode. - Yazidi Active Denominational Member:: Yes Will Denominational Members or Telecom Field Technician Visit:: Yes - Advance Directives for Healthcare Advance Directives for Healthcare: Advance Directives - Community Community Supports/Involvement: Drake has strong ties to his sabianism and parish community. - Interests Music:: country Other Activities:: uses tablet to communicate with daughter in [place] via video - Present Functional Status Physical Abilities:: very debilitated Cognitive:: mostly alert and sometyimes oriented but this waxes and wanes with medication Communication:: speech a bit garbled due to medication Behavior:: appropriate for someone receiving end of life care - Medical History PAST MEDICAL HISTORY/PAST SURGICAL HISTORY:: Anxiety, Cirrhosis of liver, On beta blockers; Under care of Dr. Joe. Colon cancer Multiple polypectomies. DM (diabetes mellitus). Esophageal varices (Chronic). GERD. Hearing loss secondary to scarlet fever. HTN . Hyperlipidemia. IBS, Iron deficiency, CBcs and VBenofer on a regular basis. Liver cirrhosis. MGUS. Mild cognitive impairment. HANS. Pancytopenia (Chronic). Thought to be secondary to liver cirrhosis and splenic sequestratioin. Please note bone marrow biopsy was negative. Parkinson disease. Perirectal abscess (Resolved). Prostate cancer- S/P radiation, Lupron, now on Zoladex. Restless leg syndrome. Streptococcal bacteremia. s/p removal of buried central venous access device. no bleeding. no pain. cont care. Ventral hernia. BONE MARROW BIOPSY (11/25/14). LISSET. Colectomy. 1992. colonoscopy, ventral hernia repair, bowel resection, Leonid fundoplicationcholecystectomy, ear surgery General Health:: poor - Admission Data Reason for Swing Bed Admission:: end of life care Discharge Plan:: Drake will remain at [facility] for the rest of his days Assessment: Drake was admitted with an intraperitoneal bleed secondary to end stage liver disease (cancer). He is on comfort measures and will remain at [facility] for end of life care. The goal will be to keep him comfortable and supported and coordinate communication with friends and family. Account Leader: Kristen Claire Date Assessment was completed:: 03/06/20
--- NOTE | 2020-03-06 14:27 | CM.SWINGPC ---
- If Service Date Differs Date of service: 03/06/20 Time of Service: 14:27 Swingbed Plan of Care Plan of care: SWING BED PROGRAM ACTIVITIES/DISCHARGE PLAN OF CARE ACTIVITIES PLAN Date: 03/06/20 Identified Need: Individualized plan of care Intervention/Plan: Drake is on comfort measures. All activities will be directed to keeping Drake comfortable and creating a peaceful, compassionate environment for him. He will have soft music, TV if interested and facilitated communication via phone or video with friends and family. Initials [facility] DISCHARGE PLAN Date: 03/06/20 Identified Need: End of life care Intervention/Plan: Drake will remain at [facility] for end of life care. arrangements will be through [facility]. According to daughter Annabelle, all arrangements have been made. Initials: [facility]
--- OUTSIDE RECORDS SUMMARY | 2020-03-06 15:00 | XMS_ITS ---
:1940 Author Care Team Providers Name Role Phone [facility] Primary Care Provider [phone] [facility] OTHER [phone] LAURI LOWRY MD Neurologist [phone] SOPHIE HANEY APRN Primary Care Provider [phone] Allergies Code Code System Name Reaction Severity Status Onset 3827 RxNorm Enalapril ? ? Active ? 6809 RxNorm Metformin ? ? Active ? 635176 RxNorm Nexium ? ? Active ? 20230420 RxNorm Tylenol ? ? Active ? Medications Name Status Start Date Stop Date ? ? carbidopa-levodopa Active ? Not available 25-100mg 2tabs QID carvedilol Active ? Not available 3.125mg BID cholecalciferol (vit D3) 1,000 unit-vitamin K2 (MK4) 100 mcg tab let Completed ? 02/12/2018 2000units daily dextromethorphan Completed ? 02/12/2018 12.5mg/5ml PRN for cough Dulcolax (bisacodyl) Completed ? 02/12/2018 100mg PRN Fleet Enema Completed ? 02/12/2018 PRN furosemide Completed ? 02/12/2018 20mg daily gabapentin Completed ? 02/12/2018 250mg/5ml at bedtime Humalog KwikPen (U-100) Insulin 100 unit/mL subcutaneous Active ? Not available 8-10units PRN Levemir U-100 Insulin 100 unit/mL subcutaneous solution Active ? Not available 45 units at bedtime magnesium Active ? Not available BID melatonin Active ? Not available 5mg at bedtime Metamucil Completed ? 02/12/2018 1TBSP PRN Milk of Magnesia Completed ? 05/04/2018 30ml daily NovoFine 30 Completed ? 02/12/2018 QID Protonix Active ? Not available 40mg BID sertraline Completed ? 02/12/2018 100mg daily tamsulosin Completed ? 02/12/2018 0.4mg at bedtime tramadol Active ? Not available 50mg (1/2 pill) Q8hrs PRN Vesicare Completed ? 02/12/2018 10mg daily Problems Name Status Onset Date Source ? Polyp of Colon Active ? History Type 2 Diabetes Mellitus without Complication Active ? History Hyperlipidemia Active ? History Monoclonal Gammopathy of Uncertain Significance Active ? History Iron Deficiency Anemia Active ? History Pancytopenia Active ? History Dementia Active ? History Obstructive Sleep Apnea Syndrome Active ? History Parkinson's Disease Active ? History Hearing Loss Active ? History Hypertensive Disorder Active ? History Bleeding Esophageal Varices Active ? Hist ory Huynh's Esophagus Active ? History Irritable Bowel Syndrome Active ? History Cirrhosis of Liver Active ? History Pseudocyst of Pancreas Active ? History Arthropathy Active ? History Urge Incontinence of Urine Active ? Histo ry Urgent Desire to Urinate Active ? History Anisocytosis, Red Cells Active ? History History of Malignant Neoplasm of Prostate Active ? History Inflammatory Disorder of Digestive Tract Active ? History Disease of Liver Active ? History Finding of Esophagus Active ? History Procedures None recorded. Results Lab Results None recorded. Past Encounters 02/23/2020 Obstructive Sleep Apnea Syndrome Caity Clayton, PEDIATRIC SOCIAL WORKER: [address] [place] [id number], Ph. Social History Tobacco Smoking Status Former Smoker Notes: quit ma y 1994 Vaccine List None recorded. Plan of Care Reminders Provider Appointments None ? ? recorded. Lab None ? ? recorded. Referral None ? ? recorded. Procedures None ? ? recorded. Surgeries None ? ? recorded. Imaging None ? ? recorded. Vitals 02/23/2020 10:30AM Office 30 Height Weight BMI Blood Pressure 170.18 cm 95.25 kg 32.9 kg/m2 120/68 mm[Hg] 07/02/2018 08:30AM Office 15 Height Weight BMI Blood Pressure 170.18 cm 98.34 kg 34 kg/m2 130/62 mm[Hg] 05/04/2018 08:30AM Office 30 Height Weight BMI Blood Pressure 170.18 cm 92.53 kg 32 kg/m2 138/64 mm[Hg] 02/12/2018 08:30AM Office 15 Height Weight BMI Blood Pressure 170.18 cm 96.48 kg 33.3 kg/m2 140/78 mm[Hg] 08/21/2017 09:45AM Office 30 Height Weight BMI Blood Pressure 170.18 cm 99.79 kg 34.5 kg/m2 140/68 mm[Hg] 04/22/2017 Height Weight Blood Pressure 170.18 cm 92.08 kg 118/70 mm[Hg] 03/03/2017 Height Weight Blood Pressure 170.18 cm 92.08 kg 132/60 mm[Hg]
--- OUTSIDE RECORDS SUMMARY | 2020-03-06 15:00 | XMS_ITS | Encounter Summary ---
:1940 Author Care Team Providers Name Role Phone [facility] Medical Records Primary Care Provider [phone] Joanne Riggins APRN Primary Care Provider [phone] [facility] OTHER [phone] Brenda Almanzar MD Neurologist [phone] Reason for Visit None recorded. Assessment and Plan 1. Obstructive sleep apnea syndr ome Severe HANS with an AHI of 72.4 /hr. He has been using APAP 10-15 cm. He has great compliance and an excellent reduction in AHI. He has some residual sleepiness which is likely multifactorial. H jose continues to sleep much better with CP AP and continued use of CPAP is recommended. He wants to change DME companies but is working with [employer] and will let me know wheat company I need to sen d the order to. In the meantime he can't afford the 20% copay so I gave him a new Simplus mask today to help get him through until he can get new supplies. He is encouraged to keep up with the routine m aintenance of the machine and to clean a nd replace parts as indicated. He does not drive. I will see him back in one tanmay. He is asked to call the clinic for any sleep related questions or concerns. I provided greater than 25 minutes in e care of this patient, more than half the time was spent in [id number] counseling. Discussion Note: None recorded.Patient educational handouts: No information available. Plan of Care Reminders Provider Appointments Return to on or around Hank Clayton, Office 02/22/2021 INTRAOPERATIVE NEURO TECH Lab None ? ? recorded. Referral None ? ? recorded. Procedures None ? ? recorded. Surgeries None ? ? recorded. Imaging None ? ? recorded. Medications Name Start Date ? ? carbidopa-levodopa ? 25-100mg 2tabs QID carvedilol ? 3.125mg BID Humalog KwikPen (U-100) Insulin 100 unit/mL subcutaneo us ? 8-10units PRN Levemir U-100 Insulin 100 unit/mL subcutaneous solutio n ? 45 units at bedtime magnesium ? BID melatonin ? 5mg at bedtime Protonix ? 40mg BID tramadol ? 50mg (1/2 pill) Q8hrs PRN Medications Administered None recorded. Vitals Height Weight BMI Blood Pressure 5 ft 7 in 210 lbs 32.9 kg/m2 120/68 mm[Hg] Results Lab Results None recorded. Allergies Code Code System Name Reaction Severity Onset 3827 RxNorm Enalapril ? ? ? 6809 RxNorm Metformin ? ? ? 570508 RxNorm Nexium ? ? ? 20230420 RxNorm Tylenol ? ? ? Problems Name Status Onset Date Source ? [...] Esophagus Active ? History Procedures None recorded. Vaccine List None recorded. Social History Tobacco Smoking Status Former Smoker Notes: quit ma y 1994 Most Recent Tobacco Use Screening 07/02/2018 Alcohol intake None Live alone or with others? 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 Caffeine intake Notes: 1-2 a day maybe Are you currently employed? N Blind or serious difficulty seeing Y Not es: reading glasses Language Difficulties No Functional Status Blind or serious Yes difficulty seeing? Past Encounters 02/23/2020 Obstructive Sleep Apnea Syndrome Caity Clayton INTRAOPERATIVE NEURO TECH: [address] [place] [phone], Ph. History of Present Illness Note: <p>Drake Ren comes in for HANS follow-up.</p><p>
</p><p>Drake was last seen by me on 07/02/18, He had a polysomnogram 11/05/07 with an AHI of 72.4/hr and SPO2 micha of 76%. He was treated with CPAP at 13 cm. for many years and then was changed over to APAP 10-15 cm. At his last visit he was using CPAP with good compliance and reduction in AHI.</p>&l t;p>
</p><p>Drake tells me he is using his CPAP most every night. At time he misses a night when he is not feeling well and he sleeps in his chair in another room. He is using</p><p>He sleeps more soundly with CPAP. At times he wakes feeing like needs more pressure. He uses a full face mask (F&P Simplus medium) and tolerates this well. He says he no longerwants to work with [employer], he has only Medicare and cannot afford the 20% out of pocket expense. Heis working with the agency on aging though so does not want me to send another order anywhere else at this time. He ues a [employer] machine.</p><p>
</p><p>Drake says he was recently diagnosed with liver cancer (12/25/19). He tells me it is inoperable. He is not currentlydoing an chemo/radiation. He is meeting with te oncologist in about wo weeks.</p><p>
</p><p>ESS today 08/07 (does not drive).</p><p>
</p><p>COMPLIANCE REVIEW: {{01/24/20-02/22/20# DATES}}, Used {{27# 25 30}}/30 days, average use {{8# 5 6}} hours {{33# number}} minutes a night, median pressure {{11.2# 8 9}}cm, 95 th percentile pressure {{13.7# 9 10}}cm, 95 th percentile air leak {{12.3# 5 10}} lpm, AHI {{0.2# 1 2}}/hour.</p>Review of Systems: ROS as noted in the HPI Review of Systems None recorded. Physical Exam ? Notes: <p>General: A&O, well groome d {{over weight obese * morbidly obese normal weight thin}}.
HEAD: no rmocephalic & atraumatic.
EYES: non icteric.
LUNGS: CTA all f ields. Good air movement.
CARDIO: irregular with murmur. NO gallop or th rill.
NEURO: A&O. Using an electric wheelchair.
PSYCH: Normal mood and affect.
CUTANEOUS: no overt lesions or rashes</p>
[2020-03-06] MEDS: HYDROmorphone 100 MG in CADD PUMP CASSETTE 1 EACH, Normal Saline 90 ML SC INF (15:49)
--- NOTE | 2020-03-06 16:29 | NUR.NOTE ---
Pt switched to a swing bed status his CADD pump re-scanned and documented to have a total volume of 72.7. Rupal Collazo RN co-signed with me when this change occurred.
--- NOTE | 2020-03-06 16:34 | CHAPLAIN ---
Drake has been sleeping much of the day. His friend Anastasiya has been here with him and they were Facetiming with Drake's daughter Annabelle in [place] today.
[2020-03-06] MEDS: Scopolamine 1 MG/3 DAYS PATCH TD (16:37)
[2020-03-06] MEDS: Docusate Sodium 100 MG CAP PO (20:34)
[2020-03-06] MEDS: Senna TAB PO (20:34)
[2020-03-07] MEDS: Docusate Sodium 100 MG CAP PO ×2 (08:54→20:09)
--- NOTE | 2020-03-07 11:40 | W.NUTRFU ---
Date of service: 03/07/20 Time of Service: 11:40 Nutritional Follow up NOTE: Drake continues on regular meal plan witih frequent refusals, po has increased a bit but not meeting nutrient needs. Meals offered and preferences honored. Here for dyiing care secondary to liver cancer. Will continue to follow. Time Spent in Nutritional Counseling and Treatment: 0
--- NOTE | 2020-03-07 15:06 | CHAPLAIN ---
Drake continues to sleep most of the time. He is on Comfort Measures. He is not eating much. His friend, Anastasiya, visits often and they sometimes contact Drake's daughter through [employer]. Drake's archeology faculty member, Rev. Perry, from the [facility] has been in to visit Drake twice. I will continue to visit.
[2020-03-07] MEDS: diphenhydrAMINE /ZINC ACET CR 30 GM TUBE TP (15:57)
[2020-03-07] MEDS: Senna TAB PO (20:09)
[2020-03-08] MEDS: Docusate Sodium 100 MG CAP PO (07:46)
--- NOTE | 2020-03-08 15:08 | CHAPLAIN ---
Drake's ISAÍAS, Randy, said he had questions about roman catholic, denominations and specifically Jehovah Witnesses. When I spoke with Drake he said he had been listening to Jehovah Witnesses but wasn't sure if he should join them. Most recently Drake has been attending the [facility] [employer], a [employer], in [facility], and his windows desktop support from their has visited. Drake has not been visited by Jehovah Witnesses since he's been here, so I don't know if he was confused, or dreaming about Jehovah Witnesses or recalling times he spent with Jehovah Witnesses before he was admitted to the hospital. I commented to Drake that churches and denominations have been created by humans, and God doesn't likely have a preference about what denomination Drake belongs to, and that the first two Zoroastrianism commandments are to love God and love our neighbors, commandments Drake has tried to follow in his life. Drake also mentioned that he was worried about dishes left somewhere, but not in his apartment at the [facility]. I didn't understand what dishes he was referring to. I will continue to visit.
--- NOTE | 2020-03-08 17:27 | CMPROGNOTE_ITS ---
- If Service Date Differs Date of service: 03/08/20 Time of Service: 17:27 Care Management Progress Note S/O: Drake was lying in bed when CM met with him. He was dozing on and off and could only speak a few words before falling back to sleep. Drake had a lot of pain during the night in his neck and abdomen. This morning his Dilaudid infusion was increased from 0.5 mg/hr to 1.0 mg/hr. and he stated that he was much more comfortable. Drake's daughter Annabelle was present via video and elba cortes in the conversation. She was very supportive and soothing in her words and manner with her Dad. A: Drake is a 79 year old man admitted to -1 [facility] end of life care on 03/06/20. P: Drake will remain at [facility] for end of life care. arrangements have been made by the family with [facility]. will continue to support Drake and his family during this difficult time.
--- NOTE | 2020-03-09 16:57 | PHA.REVIEW ---
Pharmacy Admission Review - Admission Clinical Review leuprolide acetate [From Lupron] Allergy (Severe, Verified 02/24/20 18:12) Swelling/Edema adhesive Allergy (Intermediate, Verified 02/24/20 18:12) Skin Rash enalapril [Enalapril] Adverse Reaction (Severe, Verified 02/24/20 18:12) Hyperkalemia aspirin Adverse Reaction (Intermediate, Verified 02/24/20 18:12) esomeprazole magnesium [From Nexium] Adverse Reaction (Intermediate, Verified 02/24/20 18:12) Diarrhea metformin Adverse Reaction (Intermediate, Verified 02/24/20 18:12) Diarrhea acetaminophen Adverse Reaction (Mild, Verified 02/24/20 18:12) Diarrhea Height 5 ft 8.11 in Weight 90.71 kg - Comments Comments/Follow Ups: Dilaudid 1mg/ml CADD concentration; rate is 1mg/ml; 21ml remains. (Making back up CADD for overnight use 03/09/20)
[2020-03-09] MEDS: Scopolamine 1 MG/3 DAYS PATCH TD (16:59)
[2020-03-10] MEDS: LORazepam 2 MG/ML VIAL IV/SC (03:40)
[2020-03-10] MEDS: HYDROmorphone 100 MG in CADD PUMP CASSETTE 1 EACH, Normal Saline 90 ML SC INF ×2 (07:33→09:10)
--- NOTE | 2020-03-10 16:50 | PDOC.CMPRO ---
- If Service Date Differs Date of service: 03/10/20 Time of Service: 16:50 Care Management Progress Note S/O: Drake was lying in bed and appeared peaceful and comfortable when CM visited with him. His Hydromorphone infusion is now at 2mg/hr and Drake is asleep most of the time. Drake has 2 designated support people; one is a female friend and the other is his cousin. Both have been visiting daily, offering comfort and support. A: Drake is a 79 year old man admitted to -1 [facility] end of life care on 03/06/20. P: Drake will remain at [facility] for end of life care. arrangements have been made by the family with [facility]. will continue to support Drake and his family during this difficult time.
--- NOTE | 2020-03-10 20:52 | W.PM.DDS ---
Date of service: 03/10/20 Time of Service: 20:53 Discharge Sum: Prov Provider Consults: 03/06/20 12:17 Care Management Consult [CONS] Routine Consultation Status:: Contact made by Clarification:: Manage/follow per spec. Reason for consult:: routine Palliative Care Consult [CONS] Routine Consultation Status:: Contact made by MD Clarification:: Manage/follow per spec. Reason for consult:: end of life care 03/06/20 14:32 Palliative Care Consult [CONS] Routine Consultation Status:: Contact made by MD Clarification:: Manage/follow per spec. Reason for consult:: End of Life Care Discharge Sum: Diag Contributing Factors (1) Liver cancer: Discharge Sum: Summary Date and Time Admission Date: 02/27/2100/18/21 12:16 Summary Details: Admitted 02/28/20 for end of life care. Placed on Dilaudid CADD pump, peacefully on evening of the . Additional Data Confirmation of as documented by pronouncing clinician: no pulse, no respirations, no heart sounds and pupils fixed and dilated Family: contacted Attending/PCP notified?: No Attending Physician: Andrea Nolan MD, Noé Was code activated?: No Autopsy requested?: No screen examiner notified?: No Organ bank notified?: Yes Advance directives: Yes Hospice patient?: Yes
== END 2020-03-10 20:37 | disposition expired | DRG 435 ==
PROVIDERS: Admitting Provider Family Medicine; PCP Nurse Practitioner Family; Visit Provider Family Medicine
DX: C22.9 Malignant neoplasm of liver, not specified as primary or secondary (principal); K66.1 Hemoperitoneum; F05 Delirium due to known physiological condition; D61.818 Other pancytopenia; R18.8 Other ascites; I10 Essential (primary) hypertension; G20 Parkinson's disease; E11.9 Type 2 diabetes mellitus without complications; Z79.4 Long term (current) use of insulin; Z51.5 Encounter for palliative care; Z85.038 Personal history of other malignant neoplasm of large intestine; K74.60 Unspecified cirrhosis of liver; E78.5 Hyperlipidemia, unspecified; G47.33 Obstructive sleep apnea (adult) (pediatric); D47.2 Monoclonal gammopathy; Z85.46 Personal history of malignant neoplasm of prostate
CPT/HCPCS: 99217; 99305; 99315; J1170; J2060